=== PATIENT | female | born 1995 | race Caucasian/White ===

== ENCOUNTER 2017-08-05 11:23 | Inpatient (IN) | payer OTHER ==
[~2017-08-05] VITALS: Ht 165.1 cm; Wt 55.3 kg
[2017-08-05] MEDS ORDERED: SODIUM CHLORIDE 0.9% 1000ML 1,000 ML IV STA ×3 (11:52→13:21)
[2017-08-05] MEDS ORDERED: ONDANSETRON INJ 2 MG/ML 2 ML VIAL IV STA ×2 (11:52→14:30)
[2017-08-05] MEDS ORDERED: FAMOTIDINE 20 MG TAB PO ONE (12:30)
[2017-08-05 12:32] LABS: ALBUMIN 3.8 gm/dl (3.4-5.0); BLOOD UREA NITROGEN 6 mg/dl (7-18); CALCIUM 9.1 mg/dl (8.5-10.1); CARBON DIOXIDE 22 mmol/L (21-32); CREATININE 0.56 mg/dl (0.60-1.20); GLUCOSE 94 mg/dl (70-99); POTASSIUM 3.4 mmol/L (3.5-5.1); SODIUM 133 mmol/L (136-145)
[2017-08-05 12:37] LABS: ALKALINE PHOSPHATASE 103 U/L (45-117); ALT/SGPT 99 U/L (12-78); AST/SGOT 208 U/L (15-37); LIPASE 1869 U/L (73-393); TOTAL PROTEIN 7.7 gm/dl (6.4-8.2)
--- NOTE | 2017-08-05 12:49 | DIAGNOSTIC IMAGING REPORT ---
CHEST ONE VIEW PORTABLE CLINICAL HISTORY: CHEST PAIN dyspnea COMPARISON STUDY: No previous studies for comparison. FINDINGS: The bones soft tissues and hemidiaphragms are normal. The cardiomediastinal silhouette is normal. The lungs are clear. The pulmonary vasculature is normal. IMPRESSION: Negative chest. The above report was generated using voice recognition software. It may contain grammatical, syntax or spelling errors. Electronically signed by: Matt Bentley M.D. 08/05/2017 12:48 PM Dictated Date/Time: 08/05/2017 12:48 PM
[2017-08-05 13:02] LABS: HEMATOCRIT 38.4 % (37-47); HEMOGLOBIN 13.3 g/dL (12.0-16.0); MEAN CELL VOLUME 101.1 fL (80-100); MEAN CORPUSCULAR HGB CONC 34.6 g/dl (32-36); RED CELL DISTRIBUTION WIDTH CV 14.3 % (11.5-14.5); RED CELL DISTRIBUTION WIDTH SD 52.4 fL (36.4-46.3); WHITE BLOOD COUNT 5.26 K/uL (4.8-10.8)
[2017-08-05 13:04] LABS: MEAN PLATELET VOLUME 9.7 fL (7.4-10.4); PLATELET COUNT 62 K/uL (130-400)
--- NOTE | 2017-08-05 13:21 | EMERGENCY ROOM VISIT NOTE ---
History Report prepared by Tinibshantal: Jasmine Hoskins Under the Supervision of: Dr. Derrick Aragon M.D. First contact with patient: 11:51 Chief Complaint: CHEST PAIN Stated Complaint: CHEST PAIN, VOMITIG, SHORTNESS OF BREATH, ABDOMINA Nursing Triage Summary: patient c/o "achy pain" midsternal chest /epigastric pain x 3 days. patient states pain worsens when laying flat. patient denies SOB. "its more like shacky feeling." hx anxiety. denies feeling more anxious than normal. patietn smelled of alcohol when getting vitals. RN asked if patient has been drinking. patient states she was drinking last night. "A couple of shots." patient states she thought she was but "I guess I got my period today.." History of Present Illness The patient is a 22 year old female who presents to the Emergency Room with complaints of constant chest aches beginning three days ago. The patient reports her chest pain worsens when she lays flat. She notes drinking a couple alcoholic drinks last night. The patient states "I am relatively healthy besides I drink a little too much, which is my only vice". She reports drinking a couple drinks a day. The patient was a smoker for 10 years but she states she stopped smoking a couple months ago. She notes a cough beginning a week ago and nausea, vomiting and abdominal pain beginning yesterday. The patient denies any family history of early heart attack. She is not on any oral contraceptive. She denies any chance of . The patient is currently on her period. At baseline, she denies pain with her any pain with her menstrual cycles. Source of History: patient Onset: three days ago Position: chest Quality: ache Timing: constant Associated Symptoms: + cough, + chest pain, + nausea, + vomiting, + abdominal pain Review of Systems See HPI for pertinent positives and negatives. A total of ten systems were reviewed and were otherwise negative. Past Medical & Surgical Medical Problems: (1) Alcohol withdrawal (2) No Known Active Medical Problems Family History Patient reports no known family medical history. Social History Smoking Status: Former Smoker Alcohol Use: heavy Housing Status: lives with friends Occupation Status: employed Current/Historical Medications No Active Prescriptions or Reported Meds Allergies Coded Allergies: No Known Allergies (Unverified , 08/05/17) Physical Exam Vital Signs Date Time Temp Pulse Resp B/P (MAP) Pulse Ox O2 Delivery O2 Flow Rate FiO2 08/05/17 14:27 86 16 120/80 08/05/17 13:37 103 16 125/89 98 Room Air 08/05/17 12:34 115 129/84 97 Room Air 08/05/17 12:24 123 08/05/17 11:59 97 Room Air 08/05/17 11:29 36.7 118 18 116/83 97 Room Air Physical Exam GENERAL: Awake, alert, uncomfortable and fatigued-appearing, in no distress HENT: Normocephalic, atraumatic. Oropharynx unremarkable. Dry MM. EYES: Normal conjunctiva. Sclera non-icteric. NECK: Supple. No nuchal rigidity. FROM. No JVD. RESPIRATORY: Clear to auscultation. CARDIAC: Regular rate, normal rhythm. Extremities warm and well perfused. Pulses equal. ABDOMEN: Soft, non-distended. Mild epigastric tenderness with mild generalized abdominal pain. No rebound or guarding. No masses. RECTAL: Deferred. MUSCULOSKELETAL: Chest examination reveals no tenderness. The back is symmetrical on inspection without obvious abnormality. There is no CVA tenderness to palpation. No joint edema. LOWER EXTREMITIES: Calves are equal size bilaterally and non-tender. No edema. No discoloration. NEURO: Normal sensorium. No sensory or motor deficits noted. SKIN: No rash or jaundice noted. Medical Decision & Procedures ER Provider Diagnostic Interpretation: Radiology results as stated below per my review and radiologist interpretation: CHEST ONE VIEW PORTABLE FINDINGS: The bones soft tissues and hemidiaphragms are normal. The cardiomediastinal silhouette is normal. The lungs are clear. The pulmonary vasculature is normal. IMPRESSION: Negative chest. The above report was generated using voice recognition software. It may contain grammatical, syntax or spelling errors. Electronically signed by: Matt Bentley M.D. CT ABD/PELVIS IV CONTRAST ONLY FINDINGS: Lower chest: There is a faint area of groundglass attenuation within the right lower lobe. Given the patient's age this is likely atelectatic. Liver: There is severe hepatic steatosis. No focal masses are visualized. Gallbladder: Unremarkable. Spleen: Normal in size and attenuation. Pancreas: There is no evidence of pancreatic ductal dilatation. There is infiltration of peripancreatic fat and there is peripancreatic fluid. Fluid extends into the right paracolic gutter and paranephric region on the right. There is fluid anterior to the IVC and aorta. The findings are consistent with acute pancreatitis. There are no current findings to indicate pancreatic necrosis. Adrenal glands: Unremarkable. Kidneys: There is symmetric renal cortical enhancement. The kidneys are normal in size without hydronephrosis. Bowel: There are no transition zones to indicate bowel obstruction. There is no acute diverticulitis. There are no findings to indicate acute appendicitis. Peritoneum: There is fluid present related to acute pancreatitis. No free intraperitoneal air is visualized. Vasculature: The abdominal aorta is normal in course and caliber. Adenopathy: None. Pelvic viscera: The bladder, and pelvic viscera are unremarkable. Skeletal structures: No destructive osseous lesions are seen. IMPRESSION: 1. Infiltration of the peripancreatic fat, and peripancreatic fluid which extends into the retroperitoneum and right paracolic gutter. The findings are indicative of acute pancreatitis. There is no ductal dilatation. There is no current evidence of pancreatic necrosis. 2. Severe hepatic steatosis 3. No evidence of bowel obstruction. No evidence of free air Electronically signed by: Jaime Sebastian M.D. Laboratory Results 08/05/17 12:06 Red Blood Count 3.80, Mean Corpuscular Volume 101.1, Mean Corpuscular Hemoglobin 35.0, Mean Corpuscular Hemoglobin Concent 34.6, Mean Platelet Volume 9.7 08/05/17 12:06 Test 08/05/17 11:38 08/05/17 12:06 08/05/17 12:35 08/05/17 12:41 Urine Color ORANGE Urine Appearance CLOUDY (CLEAR) Urine pH 6.0 (4.5-7.5) Urine Specific Mchenry 1.019 (1.000-1.030) Urine Protein TRACE (NEG) Urine Glucose (UA) NEG (NEG) Urine Ketones TRACE (NEG) Urine Occult Blood 3+ (NEG) Urine Nitrite POS (NEG) Urine Bilirubin NEG (NEG) Urine Urobilinogen NEG (NEG) Urine Leukocyte Esterase SMALL (NEG) Urine WBC (Auto) 5-10 /hpf (0-5) Urine RBC (Auto) 5-10 /hpf (0-4) Urine Hyaline Casts (Auto) 1-5 /lpf (0-5) Urine Epithelial Cells (Auto) >30 /lpf (0-5) Urine Bacteria (Auto) 4+ (NEG) Urine Test NEG (NEG) White Blood Count 5.26 K/uL (4.8-10.8) Red Blood Count 3.80 M/uL (4.2-5.4) Hemoglobin 13.3 g/dL (12.0-16.0) Hematocrit 38.4 % (37-47) Mean Corpuscular Volume 101.1 fL (80-100) Mean Corpuscular Hemoglobin 35.0 pg (25-34) Mean Corpuscular Hemoglobin Concent 34.6 g/dl (32-36) Platelet Count 62 K/uL (130-400) Mean Platelet Volume 9.7 fL (7.4-10.4) RDW Standard Deviation 52.4 fL (36.4-46.3) RDW Coefficient of Variation 14.3 % (11.5-14.5) Neutrophils % (Manual) 36.5 % Lymphocytes % (Manual) 26.1 % Variant Lymphocytes % (manual) 20.9 % Monocytes % (Manual) 13.9 % Eosinophils % (Manual) 2.6 % Neutrophils # (Manual) 1.92 K/uL (1.4-6.5) Total Absolute Neutrophils 1.92 K/uL (1.4-6.5) Lymphocytes # (Manual) 1.37 K/uL (1.2-3.4) Absolute Variant Lymphocytes 1.10 K/uL Total Absolute Lymphocytes 2.47 K/uL (1.2-3.4) Monocytes # (Manual) 0.73 K/uL (0.11-0.59) Eosinophils # (Manual) 0.14 K/uL (0-0.5) Macrocytosis PRESENT Prothrombin Time 10.5 SECONDS (9.0-12.0) Prothromb Time International Ratio 1.0 (0.9-1.1) Anion Gap 12.0 mmol/L (3-11) Est Creatinine Clear Calc Drug Dose 117.9 ml/min Estimated GFR () > 150.0 Estimated GFR (Non- 130.5 BUN/Creatinine Ratio 11.2 (10-20) Calcium Level 9.1 mg/dl (8.5-10.1) Magnesium Level 2.1 mg/dl (1.8-2.4) Total Bilirubin 0.7 mg/dl (0.2-1) Direct Bilirubin 0.3 mg/dl (0-0.2) Aspartate Amino Transf (AST/SGOT) 208 U/L (15-37) Alanine Aminotransferase (ALT/SGPT) 99 U/L (12-78) Alkaline Phosphatase 103 U/L (45-117) Troponin I < 0.015 ng/ml (0-0.045) Total Protein 7.7 gm/dl (6.4-8.2) Albumin 3.8 gm/dl (3.4-5.0) Lipase 1869 U/L (73-393) Influenza Type A (RT-PCR) Neg for Influ A (NEG) Influenza Type B (RT-PCR) Neg for Influ B (NEG) Ethyl Alcohol mg/dL 237.8 mg/dl (0-3) Laboratory results reviewed by me Medications Administered Medications (Trade) Dose Ordered Sig/Tabatha Route Start Time Stop Time Status Last Admin Dose Admin Sodium Chloride 1,000 ml @ 999 mls/hr Q1H1M STAT IV 08/05/17 11:52 08/05/17 12:52 DC 08/05/17 12:10 999 MLS/HR Ondansetron HCl (Zofran Inj) 4 mg NOW STAT IV 08/05/17 11:52 08/05/17 11:55 DC 08/05/17 12:10 4 MG Sodium Chloride 1,000 ml @ 999 mls/hr Q1H1M STAT IV 08/05/17 12:22 08/05/17 13:22 DC 08/05/17 12:33 999 MLS/HR Famotidine (Pepcid Tab) 20 mg NOW ONCE PO 08/05/17 12:30 08/05/17 12:31 DC 08/05/17 12:33 20 MG Sodium Chloride 1,000 ml @ 999 mls/hr Q1H1M STAT IV 08/05/17 13:21 08/05/17 14:21 DC 08/05/17 13:35 999 MLS/HR Ceftriaxone Sodium (Rocephin Inj) 1 gm NOW STAT IV 08/05/17 14:30 08/05/17 14:31 DC 08/05/17 14:40 1 GM Ondansetron HCl (Zofran Inj) 4 mg NOW STAT IV 08/05/17 14:30 08/05/17 14:31 DC 08/05/17 14:39 4 MG Fentanyl Citrate (Fentanyl Inj) 50 mcg NOW STAT IV 08/05/17 14:30 08/05/17 14:31 DC 08/05/17 14:40 50 MCG ECG Per My Interpretation Indication: abdominal pain, chest pain Rate (beats per minute): 119 Rhythm: sinus tachycardia Findings: no acute ischemic change, other (normal axis) ED Course 1217: The patient was evaluated in room A11B. A complete history and physical exam was performed. 1428: I discussed the patient with Dr. Suresh Manley - He will evaluate the patient for further treatment. Medical Decision I reviewed the patient's past medical history, medications, and the nursing notes as described above. Differential diagnosis: Etiologies such as appendicitis, diverticulitis, PUD, biliary pathology, UTI, pancreatitis, obstruction, mesenteric ischemia, aortic pathology, infections, inflammatory bowel disease, renal colic, as well as others were entertained. The patient is a 22-year-old woman with a past medical history of alcohol abuse who presents emergency department with chest pain/epigastric pain for the past couple of days with associated nausea and vomiting per hpi. The patient uncomfortable but no acute distress, afebrile stable vital signs. Patient has moderate epigastric tenderness to palpation with otherwise generalized abdominal discomfort. No peritoneal signs. Labs demonstrate pancreatitis with lipase 1800s. Patient's alcohol is also elevated in the 200s despite the patient's initial report that she only had [address] of the abdomen and pelvis ordered given the patient's first episode of pancreatitis and demonstrates acute pancreatitis with no evidence of gallstones. Moreover, the patient's LFTs demonstrate alcoholic pattern with AST >> ALT.of note, I discussed with the patient the findings and recommendation for admission and patient is agreeable. She does report that it has been a very long time since she has gone several days without drinking alcohol and so withdrawal is a possibility. UA is dirty with epithelial cells however given nitrites and bacteria will treat with ceftriaxone for now. Case was discussed with RYAN Ambriz hospitalist, who will evaluate the patient for further management. Medication Reconcilliation Current Medication List: was personally reviewed by me Blood Pressure Screening Patient's blood pressure: Normal blood pressure Consults Time Called: 1423 Consulting Physician: Dr. Suresh Manley Returned Call: 1424 I discussed the patient with Dr. Suresh Billings-[facility] - He will evaluate the patient for further treatment. Impression Primary Impression: Acute pancreatitis Additional Impression: Alcohol abuse Scribe Attestation The scribe's documentation has been prepared under my direction and personally reviewed by me in its entirety. I confirm that the note above accurately reflects all work, treatment, procedures, and medical decision making performed by me. Departure Information Dispostion Being Evaluated By Hospitalist Prescriptions No Active Prescriptions or Reported Meds Referrals No Doctor, Assigned (PCP) Patient Instructions [facility] Problem Qualifiers
[2017-08-05] MEDS ORDERED: GI COCKTAIL PO STA (13:23)
[2017-08-05 13:33] LABS: INFLUENZA A PCR Neg for Influ A (NEG); INFLUENZA B PCR Neg for Influ B (NEG)
[2017-08-05] MEDS ORDERED: OPTIRAY 320 IV PRN (13:45)
--- NOTE | 2017-08-05 14:04 | DIAGNOSTIC IMAGING REPORT ---
CT ABD/PELVIS IV CONTRAST ONLY CLINICAL HISTORY: new onset pancreatitis COMPARISON STUDY: None. TECHNIQUE: Following the IV administration of 92 mL of Optiray-320, CT scan of the abdomen and pelvis was performed from the lung bases to the proximal femurs. Images are reviewed in the axial, sagittal, and coronal planes. IV contrast was administered without complication. A dose lowering technique was utilized adhering to the principles of ALARA. CT DOSE: 264.72 mGy.cm FINDINGS: Lower chest: There is a faint area of groundglass attenuation within the right lower lobe. Given the patient's age this is likely atelectatic. Liver: There is severe hepatic steatosis. No focal masses are visualized. Gallbladder: Unremarkable. Spleen: Normal in size and attenuation. Pancreas: There is no evidence of pancreatic ductal dilatation. There is infiltration of peripancreatic fat and there is peripancreatic fluid. Fluid extends into the right paracolic gutter and paranephric region on the right. There is fluid anterior to the IVC and aorta. The findings are consistent with acute pancreatitis. There are no current findings to indicate pancreatic necrosis. Adrenal glands: Unremarkable. Kidneys: There is symmetric renal cortical enhancement. The kidneys are normal in size without hydronephrosis. Bowel: There are no transition zones to indicate bowel obstruction. There is no acute diverticulitis. There are no findings to indicate acute appendicitis. Peritoneum: There is fluid present related to acute pancreatitis. No free intraperitoneal air is visualized. Vasculature: The abdominal aorta is normal in course and caliber. Adenopathy: None. Pelvic viscera: The bladder, and pelvic viscera are unremarkable. Skeletal structures: No destructive osseous lesions are seen. IMPRESSION: 1. Infiltration of the peripancreatic fat, and peripancreatic fluid which extends into the retroperitoneum and right paracolic gutter. The findings are indicative of acute pancreatitis. There is no ductal dilatation. There is no current evidence of pancreatic necrosis. 2. Severe hepatic steatosis 3. No evidence of bowel obstruction. No evidence of free air Electronically signed by: Jaime Sebastian M.D. 08/05/2017 2:02 PM Dictated Date/Time: 08/05/2017 1:56 PM
[2017-08-05] MEDS ORDERED: FENTANYL CITRATE INJ 50 MCG/1 ML 2 ML VIAL IV STA (14:30)
[2017-08-05] MEDS ORDERED: CEFTRIAXONE SOD INJ 1 GM ADDVIAL IV STA (14:30)
[2017-08-05] MEDS ORDERED: CHLORDIAZEPOXIDE 25 MG CAP PO SCH (15:15)
[2017-08-05] MEDS ORDERED: MAGNESIUM HYDROXIDE SUSP 30 ML UDC PO PRN (15:15)
[2017-08-05] MEDS ORDERED: ACETAMINOPHEN 325 MG TAB PO PRN (15:15)
[2017-08-05] MEDS ORDERED: ALUMINUM/MAGNESIUM/SIMETH (MAALOX MAX) 30 ML UDC PO PRN (15:15)
[2017-08-05] MEDS ORDERED: POLYETHYLENE (MIRALAX) 17 GM PACK PO PRN (15:30)
[2017-08-05] MEDS ORDERED: MULTI-VITAMIN INFUSION INJ 10 ML, THIAMINE HCL INJ 100 MG, FoLIC ACID INJ 1 MG in SODIU... IV ONE (15:45)
--- NOTE | 2017-08-05 15:48 | History and Physical ---
History & Physical Date & Time of Service: Aug 05, 2017 at 15:14 Chief Complaint: Chest Pain, Vomitig, Shortness Of Breath, Abdomina Primary Care Physician: No Doctor, Assigned History of Present Illness Source: patient Ms. Davidson is a 22 y/o female with PMHx of ETOH Abuse and Anemia presents to the ED c/o epigastric abdominal pain/lower chest pain x 3 days. She reports a sudden onset of epigastric pain and chest pain that she describes as aching. She states multiple family members had the stomach flu so she initially didn't think much of it. She reports a cough and intermittent diarrhea with this. However, the pain continued to progress and she presented to the ED. She states pain is worsened by laying flat and is improving with pain medication. She reports associated nausea and emesis this AM but Zofran in the ED is helping. She is also reporting feelings of anxiety and chills but no fever. Per notes, she smelled of alcohol upon arriving to the emergency room. She denies H/O previous pancreatitis. She still has her gallbladder and denies any known issues with this. She reports she has been drinking alcohol a long time and knows she has a drinking problem. She states she previously would drink a handle of ETOH and now is down to a quarter of a 5th. Last drink was this AM. She reports that she has withdrawn from ETOH in the past but denies H/O withdrawal seizures. She is reporting feelings of anxiousness and is tremulous at this time but mentating appropriately. She has a prior use of illegal drugs but does not utilize any illegal substances currently. She is currently on her menses. Past Medical/Surgical History 1. ETOH Abuse 2. Anemia 3. Abortions with D&C x 2 Family History Patient reports no known family medical history. Social History Smoking Status: Former Smoker Alcohol Use: heavy Drug Use: none Occupational Status: employed Allergies Coded Allergies: No Known Allergies (Unverified , 08/05/17) Home Medications No Active Prescriptions or Reported Meds Review of Systems Constitutional: + chills, + fatigue, No fever ENT: No nasal symptoms, No sore throat Respiratory: + cough, + sputum, No shortness of breath, No hemoptysis Cardiovascular: No chest pain, No palpitations Abdomen: + pain (diffuse - mostly of LUQ), + nausea, + vomiting, + diarrhea ( on previous days - resolved currently), No GI bleeding Musculoskeletal: No swelling, No calf pain Genitourinary - Female: No dysuria Psychiatric: + anxiety Hematologic / Lymphatic: No abnormal bleeding/bruising Physical Exam Vital Signs Date Time Temp Pulse Resp B/P (MAP) Pulse Ox O2 Delivery O2 Flow Rate FiO2 08/05/17 14:27 86 16 120/80 08/05/17 13:37 103 16 125/89 98 Room Air 08/05/17 12:34 115 129/84 97 Room Air 08/05/17 12:24 123 08/05/17 11:59 97 Room Air 08/05/17 11:29 36.7 118 18 116/83 97 Room Air General Appearance: WD/WN, no apparent distress, + pertinent finding Head: normocephalic, atraumatic Eyes: sclerae normal ENT: hearing grossly normal, pharynx normal Neck: supple, no JVD, trachea midline Respiratory/Chest: lungs clear, normal breath sounds, no respiratory distress, no accessory muscle use Cardiovascular: no gallop, no murmur, + tachycardia Abdomen/GI: normal bowel sounds, soft, + tenderness (diffusely; no guarding or rigidity) Extremities/Musculoskelatal: no calf tenderness, no pedal edema Neurologic/Psych: alert, oriented x 3 Skin: normal color, warm/dry Diagnostics Laboratory Results Results Past 24 Hours Test 08/05/17 11:38 08/05/17 12:06 08/05/17 12:35 08/05/17 12:41 Range/Units Urine Color ORANGE Urine Appearance CLOUDY CLEAR Urine pH 6.0 4.5-7.5 Urine Specific [place] 1.019 1.000-1.030 Urine Protein TRACE NEG Urine Glucose (UA) NEG NEG Urine Ketones TRACE NEG Urine Occult Blood 3+ NEG Urine Nitrite POS NEG Urine Bilirubin NEG NEG Urine Urobilinogen NEG NEG Urine Leukocyte Esterase SMALL NEG Urine WBC (Auto) 5-10 0-5 /hpf Urine RBC (Auto) 5-10 0-4 /hpf Urine Hyaline Casts (Auto) 1-5 0-5 /lpf Urine Epithelial Cells (Auto) >30 0-5 /lpf Urine Bacteria (Auto) 4+ NEG Urine Test NEG NEG White Blood Count 5.26 4.8-10.8 K/uL Red Blood Count 3.80 4.2-5.4 M/uL Hemoglobin 13.3 12.0-16.0 g/dL Hematocrit 38.4 37-47 % Mean Corpuscular Volume 101.1 80-100 fL Mean Corpuscular Hemoglobin 35.0 25-34 pg Mean Corpuscular Hemoglobin Concent 34.6 32-36 g/dl Platelet Count 62 130-400 K/uL Mean Platelet Volume 9.7 7.4-10.4 fL RDW Standard Deviation 52.4 36.4-46.3 fL RDW Coefficient of Variation 14.3 11.5-14.5 % Neutrophils % (Manual) 36.5 % Lymphocytes % (Manual) 26.1 % Variant Lymphocytes % (manual) 20.9 % Monocytes % (Manual) 13.9 % Eosinophils % (Manual) 2.6 % Neutrophils # (Manual) 1.92 1.4-6.5 K/uL Total Absolute Neutrophils 1.92 1.4-6.5 K/uL Lymphocytes # (Manual) 1.37 1.2-3.4 K/uL Absolute Variant Lymphocytes 1.10 K/uL Total Absolute Lymphocytes 2.47 1.2-3.4 K/uL Monocytes # (Manual) 0.73 0.11-0.59 K/uL Eosinophils # (Manual) 0.14 0-0.5 K/uL Macrocytosis PRESENT Prothrombin Time 10.5 9.0-12.0 SECONDS Prothromb Time International Ratio 1.0 0.9-1.1 Sodium Level 133 136-145 mmol/L Potassium Level 3.4 3.5-5.1 mmol/L Chloride Level 99 98-107 mmol/L Carbon Dioxide Level 22 21-32 mmol/L Anion Gap 12.0 3-11 mmol/L Blood Urea Nitrogen 6 7-18 mg/dl Creatinine 0.56 0.60-1.20 mg/dl Est Creatinine Clear Calc Drug Dose 117.9 ml/min Estimated GFR () > 150.0 Estimated GFR (Non- 130.5 BUN/Creatinine Ratio 11.2 10-20 Random Glucose 94 70-99 mg/dl Calcium Level 9.1 8.5-10.1 mg/dl Magnesium Level 2.1 1.8-2.4 mg/dl Total Bilirubin 0.7 0.2-1 mg/dl Direct Bilirubin 0.3 0-0.2 mg/dl Aspartate Amino Transf (AST/SGOT) 208 15-37 U/L Alanine Aminotransferase (ALT/SGPT) 99 12-78 U/L Alkaline Phosphatase 103 45-117 U/L Troponin I < 0.015 0-0.045 ng/ml Total Protein 7.7 6.4-8.2 gm/dl Albumin 3.8 3.4-5.0 gm/dl Lipase 1869 73-393 U/L Influenza Type A (RT-PCR) Neg for Influ A NEG Influenza Type B (RT-PCR) Neg for Influ B NEG Ethyl Alcohol mg/dL 237.8 0-3 mg/dl Microbiology Results 08/05/17 Urine Culture, Received Pending Diagnostic Radiology CT ABD/PELVIS IV CONTRAST ONLY FINDINGS: Lower chest: There is a faint area of groundglass attenuation within the right lower lobe. Given the patient's age this is likely atelectatic. Liver: There is severe hepatic steatosis. No focal masses are visualized. Gallbladder: Unremarkable. Spleen: Normal in size and attenuation. Pancreas: There is no evidence of pancreatic ductal dilatation. There is infiltration of peripancreatic fat and there is peripancreatic fluid. Fluid extends into the right paracolic gutter and paranephric region on the right. There is fluid anterior to the IVC and aorta. The findings are consistent with acute pancreatitis. There are no current findings to indicate pancreatic necrosis. Adrenal glands: Unremarkable. Kidneys: There is symmetric renal cortical enhancement. The kidneys are normal in size without hydronephrosis. Bowel: There are no transition zones to indicate bowel obstruction. There is no acute diverticulitis. There are no findings to indicate acute appendicitis. Peritoneum: There is fluid present related to acute pancreatitis. No free intraperitoneal air is visualized. Vasculature: The abdominal aorta is normal in course and caliber. Adenopathy: None. Pelvic viscera: The bladder, and pelvic viscera are unremarkable. Skeletal structures: No destructive osseous lesions are seen. IMPRESSION: 1. Infiltration of the peripancreatic fat, and peripancreatic fluid which extends into the retroperitoneum and right paracolic gutter. The findings are indicative of acute pancreatitis. There is no ductal dilatation. There is no current evidence of pancreatic necrosis. 2. Severe hepatic steatosis 3. No evidence of bowel obstruction. No evidence of free air CHEST ONE VIEW PORTABLE FINDINGS: The bones soft tissues and hemidiaphragms are normal. The cardiomediastinal silhouette is normal. The lungs are clear. The pulmonary vasculature is normal. IMPRESSION: Negative chest. EKG Sinus tachycardia Possible Left atrial enlargement Borderline ECG No previous ECGs available Confirmed by JUANITO FERRERA ([id number]) on 08/05/2017 1:27:22 PM Impression Assessment and Plan Ms. Davidson is a 22 y/o female with PMHx of ETOH Abuse and Anemia presents to the ED c/o epigastric abdominal pain/lower chest pain x 3 days. Acute Pancreatitis likely ETOH-Induced: - Place NPO except sips/chips - Aggressive hydration with 3 L in ED and will continue with banana bag and NSS + KCL - Toradol and Morphine PRN - May have an associate gastritis and will cover with Pepcid 20 mg IV BID ETOH Abuse with Withdrawal: AWSS Protocol - Daily banana bag; Librium taper and Ativan PRN - Appears to be actively withdrawing at this time presenting with anxiety and tremors; mentating appropriately at this time Urinary Tract Infection: Asymptomatic - Will cover with Rocephin 1 g IV daily and await cx Hepatic Steatosis and Transaminitis: - Will trend and obtain U/S of liver and GB to further assess this area - did explain finding of CT to patient - Obtain hepatitis panel - likely this is ETOH induced Macrocytic Anemia: - Currently H&H acceptable at this time; will need Folate and B12 on D/C DVT Prophylaxis: SCDs Code Status: FULL RESUSCITATION Disposition: - Had a long conversation about outpatient/inpatient options for ETOH use - patient was receptive to conversation however did not give a direct answer if she would want any resources - should be given regardless - /BF was at bedside who is an alcoholic as well and states they are both trying to get sober and he is familiar with resources - he plans to remain at bedside with patient however patient is very open with her problem I personally interviewed and examined the patient. I agree with history of present illness and physical exam mentioned above, I also performed my own history taking and examination. Past medical history and review of system has been obtained by myself I reviewed all pertinent labs and studies Reviewed current medications I discussed and formulated of the assessment and plan mentioned above. Please refer to the Summary mentioned below. 22-year-old female with history of heavy drinking/alcohol abuse presented to the ED with severe abdominal pain, CAT scan was indicative of acute pancreatitis Consulted patient regarding alcohol addiction and concomitant diseases. Appears to have severe steatosis, alcoholic hepatitis plus the pancreatitis Yet we will rule out other causes of pancreatitis, ordered lipid spaniel to rule out hypertriglyceridemia, gallbladder was reviewed and a CAT scan does appear normal, severe hepatic steatosis is overt on her CAT scan results. Indicative of alcoholic hepatitis. Also ordered hemoglobin A1c rule out concomitant or early diabetes secondary to pancreatitis. We will order will follow we will follow up liver function test in a.m. including calcium level and CBC to monitor the severity of her pancreatitis. Patient does have also abnormal UA, will be empirically treated with ceftriaxone until culture results come back General Appearance: not in acute distress Eyes: normal Sclerae, extraocular muscle intact ENT: hearing grossly normal Neck: supple Respiratory/Chest: normal air entry bilateral ,no respiratory distress, no accessory muscle use Cardiovascular: regular rate, rhythm, no murmur Abdomen: Tenderness mainly in the epigastric area, otherwise soft no guarding or rebound Extremities: no edema Neurologic/Psychiatric: Awake alert oriented times place and person moves all extremities sensation intact cranial nerves II-12 appear to be intact Skin: normal color, warm/dry, no rash Marcio Billings MD, [facility] Resuscitation Status VTE Prophylaxis Will order VTE Prophylaxis: Yes
[2017-08-05] MEDS: ONDANSETRON INJ 2 MG/ML 2 ML VIAL IV PRN (15:53)
[2017-08-05 16:41] VITALS: BP 114/80; PULSE 92; TEMP 37.1; O2SAT 98; Ht 165.1 cm; Wt 55.3 kg
[2017-08-05] MEDS: MoRPHine SULFATE 4 MG/ML 1 ML CARP\\VIAL IV PRN (17:07)
[2017-08-05] MEDS: CHLORDIAZEPOXIDE 25MG 1ST DOSE PO SCH (18:11)
[2017-08-05] MEDS ORDERED: PROMETHAZINE HCL INJ 12.5 MG in SODIUM CHLORIDE 0.9% 50ML 50 ML IV PRN (18:30)
[2017-08-05] MEDS: KETOROLAC TROMETHAMINE 15 MG/ML VIAL IV. PRN (19:02)
[2017-08-05 19:19] VITALS: BP 134/88; PULSE 77; TEMP 36.8; O2SAT 97
[2017-08-05] MEDS ORDERED: FAMOTIDINE IV INJ 20 MG in DEXTROSE 5% 100ML 100 ML IV SCH (21:00)
[2017-08-05] MEDS: FAMOTIDINE IV INJ 20 MG in SYRINGE 3 ML IV SCH (21:09)
[2017-08-05] MEDS: LORAZEPAM 2 MG/ML 1 ML VIAL IV PRN (21:09)
--- NOTE | 2017-08-05 21:37 | DIAGNOSTIC IMAGING REPORT ---
(LIVER) ABDOMEN LIMITED CLINICAL HISTORY: 22 years-old Female presenting with Hepatic steatosis/GB evaluation. TECHNIQUE: Real-time grayscale and limited color Doppler ultrasound imaging of the abdomen limited to the right upper quadrant was performed. COMPARISON: CT from earlier the same day. FINDINGS: Pancreas: Visualized portions of the pancreatic head are hypoechogenic. Liver: Moderately hyperechogenic parenchyma with partial obscuration of the right hemidiaphragm, likely indicating moderate steatosis. The liver measures 15.1 cm in maximal sagittal dimension. No sonographic evidence of hepatic mass. Main portal vein patent with normal directional flow. Biliary: No intrahepatic biliary ductal dilatation. Common bile duct measures up to 5 mm in diameter. Gallbladder: No evidence of gallstones, gallbladder wall thickening, gallbladder distention, or pericholecystic fluid or inflammatory change. Right kidney: Normal in appearance. No hydronephrosis. No renal calculi visible on most recent CT. The prominent hyperechogenic foci marked on the images likely represent prominent fat. Ascites: Trace free fluid in Morison's pouch. Other: None. IMPRESSION: 1. Hepatic steatosis. Correlate with liver function tests to exclude steatohepatitis as a cause for abdominal pain. 2. No cholelithiasis or biliary ductal dilatation. 3. Hypoechogenic pancreatic parenchyma could be compatible with known pancreatitis. Electronically signed by: Oli Benjamin M.D. 08/05/2017 9:36 PM Dictated Date/Time: 08/05/2017 9:32 PM
[2017-08-05] MEDS: MoRPHine SULFATE 2 MG/ML CARP IV PRN (22:20)
[2017-08-06] VITALS (8 sets, daily range): BP systolic 114–128; BP diastolic 75–90; PULSE 87–98; TEMP 36.7–37.1; O2SAT 96–99
[2017-08-06] MEDS: CHLORDIAZEPOXIDE 25MG 1ST DOSE PO SCH ×3 (00:04→11:59)
[2017-08-06] MEDS: POTASSIUM CHLORIDE INJ 20 MEQ in SODIUM CHLORIDE 0.9% 1000ML 1,000 ML IV SCH ×2 (00:05→00:55)
[2017-08-06] MEDS: LORAZEPAM 2 MG/ML 1 ML VIAL IV PRN ×4 (00:05→21:29)
[2017-08-06] MEDS: KETOROLAC TROMETHAMINE 15 MG/ML VIAL IV. PRN ×2 (01:39→10:25)
[2017-08-06] MEDS: MoRPHine SULFATE 4 MG/ML 1 ML CARP\\VIAL IV PRN ×2 (04:15→22:50)
[2017-08-06 06:05] LABS: HEMATOCRIT 32.9 % (37-47); HEMOGLOBIN 11.1 g/dL (12.0-16.0); MEAN CELL VOLUME 103.5 fL (80-100); MEAN CORPUSCULAR HEMOGLOBIN 34.9 pg (25-34); MEAN CORPUSCULAR HGB CONC 33.7 g/dl (32-36); RED CELL DISTRIBUTION WIDTH CV 14.2 % (11.5-14.5); RED CELL DISTRIBUTION WIDTH SD 53.4 fL (36.4-46.3); WHITE BLOOD COUNT 3.55 K/uL (4.8-10.8)
[2017-08-06 06:14] LABS: BASO % 0.8 %; BASO ABS # 0.03 K/uL (0-0.2); EOS % 1.7 %; EOS ABS # 0.06 K/uL (0-0.5); IG# 0.01 K/uL (0.00-0.02); LYMPH % 28.5 %; LYMPH ABS # 1.01 K/uL (1.2-3.4); MEAN PLATELET VOLUME 10.8 fL (7.4-10.4); MONO % 20.6 %; MONO ABS # 0.73 K/uL (0.11-0.59); NEUT % 48.1 %; NEUT ABS # 1.71 K/uL (1.4-6.5); PLATELET COUNT 45 K/uL (130-400)
[2017-08-06 06:42] LABS: ALBUMIN 3.3 gm/dl (3.4-5.0); ALT/SGPT 67 U/L (12-78); AST/SGOT 105 U/L (15-37); BLOOD UREA NITROGEN 3 mg/dl (7-18); CALCIUM 8.4 mg/dl (8.5-10.1); CARBON DIOXIDE 22 mmol/L (21-32); CREATININE 0.45 mg/dl (0.60-1.20); GLUCOSE 77 mg/dl (70-99); LIPASE 1132 U/L (73-393); POTASSIUM 3.6 mmol/L (3.5-5.1); SODIUM 138 mmol/L (136-145)
[2017-08-06 06:54] LABS: ALKALINE PHOSPHATASE 86 U/L (45-117); TOTAL PROTEIN 6.4 gm/dl (6.4-8.2)
[2017-08-06 07:25] LABS: HEMOGLOBIN A1C 4.9 % (4.5-5.6)
[2017-08-06] MEDS ORDERED: MULTI-VITAMIN INFUSION INJ 10 ML, THIAMINE HCL INJ 100 MG, FoLIC ACID INJ 1 MG in SODIU... IV SCH (09:00)
[2017-08-06 09:05] LABS: HEP C IGG 13 YRS+OLDER_RFLX NEG (NEG)
[2017-08-06] MEDS: FAMOTIDINE IV INJ 20 MG in SYRINGE 3 ML IV SCH ×2 (10:25→21:29)
[2017-08-06] MEDS: MAGNESIUM SULFATE 1GM / D5W 1 GM in PREMIXED IN D5W 100 ML IV SCH ×2 (10:26→11:54)
[2017-08-06] MEDS: D5W AND LACTATED RINGERS 1,000 ML IV SCH ×3 (10:54→23:57)
[2017-08-06] MEDS ORDERED: FoLIC ACID INJ 1 MG in SYRINGE 9.8 ML IV ONE (11:57)
[2017-08-06] MEDS ORDERED: CEFTRIAXONE SOD INJ 1 GM in DEXTROSE 5% ADD-VANTAGE 50ML 50 ML IV SCH (12:00)
[2017-08-06] MEDS: CHLORDIAZEPOXIDE 25MG Q8H DOSE PO SCH (19:47)
[2017-08-06] MEDS: MoRPHine SULFATE 2 MG/ML CARP IV PRN (19:49)
--- NOTE | 2017-08-06 21:17 | Progress Note ---
Subjective Date of Service: Aug 06, 2017. Subjective Pt evaluation today including: conversation w/ patient, conversation w/ family (boyfriend at bedside), physical exam, chart review, lab review, review of studies (CT abd, RUQ u/s), review of inpatient medication list Pain: multiple areas of abdomen PO Intake: npo Voiding: no voiding problems patient feels a little better today but still w/ pain no further nausea or emesis tolerating ice chips +flatus tele stable overnight periods of tachycardia w/ ambulation has some shakes/tremors wants to quit etoh Problem List Medical Problems: (1) Acute pancreatitis Status: Acute (2) Alcohol abuse Status: Acute Review of Systems Constitutional: No fever Respiratory: No shortness of breath, No dyspnea on exertion Cardiac: No chest pain, No edema Abdomen: + pain, No nausea, No vomiting Objective Vital Signs Date Time Temp Pulse Resp B/P (MAP) Pulse Ox O2 Delivery O2 Flow Rate FiO2 08/06/17 20:01 Room Air 08/06/17 19:38 37.1 97 19 126/90 (102) 99 Room Air 08/06/17 16:00 Room Air 08/06/17 15:19 36.9 87 17 128/87 (101) 99 Room Air 08/06/17 12:00 Room Air 08/06/17 10:30 36.7 94 20 124/89 (101) Room Air 08/06/17 08:00 96 Room Air 08/06/17 07:50 36.7 95 18 121/84 (96) 96 Room Air 08/06/17 04:30 36.8 94 18 114/75 (88) 98 Room Air 08/06/17 04:02 Room Air 08/06/17 00:34 36.9 89 18 122/87 (99) 99 Room Air 08/06/17 00:00 Room Air Physical Exam General Appearance: no apparent distress ENT: pharynx normal Neck: no JVD Respiratory/Chest: lungs clear, no respiratory distress, no accessory muscle use Cardiovascular: regular rate, rhythm, no gallop, no murmur Abdomen: normal bowel sounds, soft, + tenderness (RUQ, epigastric area), + hepatomegaly Extremities: no pedal edema Neurologic/Psychiatric: alert, oriented x 3, + pertinent finding (mild tremors) Skin: normal color, no rash, + pertinent finding (multiple tattoos ) Laboratory Results Last 24 Hours Test 08/06/17 05:34 White Blood Count 3.55 K/uL Red Blood Count 3.18 M/uL Hemoglobin 11.1 g/dL Hematocrit 32.9 % Mean Corpuscular Volume 103.5 fL Mean Corpuscular Hemoglobin 34.9 pg Mean Corpuscular Hemoglobin Concent 33.7 g/dl Platelet Count 45 K/uL Mean Platelet Volume 10.8 fL Neutrophils (%) (Auto) 48.1 % Lymphocytes (%) (Auto) 28.5 % Monocytes (%) (Auto) 20.6 % Eosinophils (%) (Auto) 1.7 % Basophils (%) (Auto) 0.8 % Neutrophils # (Auto) 1.71 K/uL Lymphocytes # (Auto) 1.01 K/uL Monocytes # (Auto) 0.73 K/uL Eosinophils # (Auto) 0.06 K/uL Basophils # (Auto) 0.03 K/uL RDW Standard Deviation 53.4 fL RDW Coefficient of Variation 14.2 % Immature Granulocyte % (Auto) 0.3 % Immature Granulocyte # (Auto) 0.01 K/uL Sodium Level 138 mmol/L Potassium Level 3.6 mmol/L Chloride Level 106 mmol/L Carbon Dioxide Level 22 mmol/L Anion Gap 10.0 mmol/L Blood Urea Nitrogen 3 mg/dl Creatinine 0.45 mg/dl Est Creatinine Clear Calc Drug Dose 173.5 ml/min Estimated GFR () > 150.0 Estimated GFR (Non- 140.2 BUN/Creatinine Ratio 6.7 Random Glucose 77 mg/dl Estimated Average Glucose 94 mg/dl Hemoglobin A1c 4.9 % Calcium Level 8.4 mg/dl Magnesium Level 1.7 mg/dl Total Bilirubin 1.0 mg/dl Direct Bilirubin 0.4 mg/dl Aspartate Amino Transf (AST/SGOT) 105 U/L Alanine Aminotransferase (ALT/SGPT) 67 U/L Alkaline Phosphatase 86 U/L Total Protein 6.4 gm/dl Albumin 3.3 gm/dl Globulin 3.1 gm/dl Albumin/Globulin Ratio 1.1 Lipase 1132 U/L Hepatitis B Surface Antigen NEG Hepatitis C Antibody NEG Assessment and Plan 22yo female - 1. acute pancreatitis 2nd to alcohol abuse - continue NPO status (still w/ abdominal pain and frequent use of pain medication). Change fluids to LR and run at 150cc/hr. Lipase in am. Etoh abstinence discussed today. Pain control. 2. RUQ pain - likely due to alcoholic hepatitis. Should improve w/ time. LFTs am. 3. epigastric pain - likely alcoholic gastritis. Cont IV H2 mayito. Stop toradol. NPO. 4. alcohol abuse - counseled to quit. Thiamine 200mg BID, folic acid, MVI. Cont etoh withdrawal protocol. Cont librium and ativan prn. Leave on telemetry. 5. UTI - cont rocephin, follow cx. 6. mod-severe thrombocytopenia - likely due to direct toxic effects from etoh. Check b12/folate in AM to be complete. CBC in am. 7. hypomagnesemia - replace, repeat level AM. 8. macrocytic anemia - likely due to etoh abuse; CBC in am. Check b12/folate to be complete. 9. hypokalemia - 2nd to etoh abuse - improved. 10. hyponatremia - 2nd to dehydration & etoh abuse - improved with fluids. BMP am. fortunately no signs of DTs at this time but at high risk of such Continued [facility] stay due to: inadequate po fluid intake, inadequate oral pain control, multiple IV medications needed Discharge planning: home
[2017-08-06] MEDS: THIAMINE HCL INJ 200 MG in SODIUM CHLORIDE 0.9% 50ML 50 ML IV SCH (21:26)
[2017-08-07 03:45] VITALS: BP 107/69; PULSE 78; TEMP 37.2; O2SAT 99
[2017-08-07] MEDS: CHLORDIAZEPOXIDE 25MG Q8H DOSE PO SCH ×2 (06:11→14:32)
[2017-08-07] MEDS: D5W AND LACTATED RINGERS 1,000 ML IV SCH (06:12)
[2017-08-07 07:00] LABS: ALBUMIN 2.9 gm/dl (3.4-5.0); ALT/SGPT 48 U/L (12-78); AST/SGOT 55 U/L (15-37); BLOOD UREA NITROGEN 1 mg/dl (7-18); CALCIUM 8.8 mg/dl (8.5-10.1); CARBON DIOXIDE 26 mmol/L (21-32); CREATININE 0.49 mg/dl (0.60-1.20); GLUCOSE 108 mg/dl (70-99); LIPASE 478 U/L (73-393); POTASSIUM 3.1 mmol/L (3.5-5.1); SODIUM 139 mmol/L (136-145)
[2017-08-07 07:03] LABS: ALKALINE PHOSPHATASE 81 U/L (45-117); TOTAL PROTEIN 6.2 gm/dl (6.4-8.2)
[2017-08-07 07:12] VITALS: BP 119/78; PULSE 99; TEMP 36.7; O2SAT 99
[2017-08-07 08:07] LABS: HEMATOCRIT 31.6 % (37-47); HEMOGLOBIN 10.8 g/dL (12.0-16.0); MEAN CELL VOLUME 102.3 fL (80-100); MEAN CORPUSCULAR HGB CONC 34.2 g/dl (32-36); RED CELL DISTRIBUTION WIDTH CV 13.8 % (11.5-14.5); RED CELL DISTRIBUTION WIDTH SD 51.3 fL (36.4-46.3)
[2017-08-07 08:08] LABS: MEAN PLATELET VOLUME 10.7 fL (7.4-10.4); PLATELET COUNT 44 K/uL (130-400)
[2017-08-07] MEDS: CEROVITE ADV FORMULA TAB PO SCH (08:12)
[2017-08-07] MEDS: FoLIC ACID INJ 1 MG in SYRINGE 9.8 ML IV SCH (08:12)
[2017-08-07] MEDS: POTASSIUM CHLORIDE INJ 20 MEQ in D5W AND LACTATED RINGERS 1,000 ML IV SCH ×3 (08:13→20:00)
[2017-08-07] MEDS: POTASSIUM CHLORIDE 20 MEQ TABCR PO SCH ×3 (08:14→19:59)
[2017-08-07] MEDS: FAMOTIDINE IV INJ 20 MG in SYRINGE 3 ML IV SCH ×2 (08:15→20:00)
[2017-08-07] MEDS: THIAMINE HCL INJ 200 MG in SODIUM CHLORIDE 0.9% 50ML 50 ML IV SCH ×2 (08:15→20:00)
[2017-08-07] MEDS: ONDANSETRON INJ 2 MG/ML 2 ML VIAL IV PRN (09:59)
[2017-08-07] MEDS: MoRPHine SULFATE 2 MG/ML CARP IV PRN (10:02)
[2017-08-07 11:14] VITALS: BP 112/75; PULSE 84; TEMP 36.5; O2SAT 96
[2017-08-07] MEDS: SUCRALFATE 1 GM/10 ML UDC PO SCH ×3 (11:47→19:59)
[2017-08-07] MEDS: AMOXICILLIN 500 MG CAP PO SCH ×2 (14:32→19:59)
[2017-08-07 15:24] VITALS: BP 113/77; PULSE 86; TEMP 37; O2SAT 99
[2017-08-07 15:41] LABS: HEPATITIS A IGM TC 51813E NON-REACTIVE (NON-REACTIVE); HEPATITIS B CORE IGM TC51854R NON-REACTIVE (NON-REACTIVE)
--- NOTE | 2017-08-07 16:09 | Progress Note ---
Subjective Date of Service: Aug 07, 2017. Subjective Pt evaluation today including: conversation w/ patient, physical exam, chart review, lab review, review of inpatient medication list Pain: improved abd pain but still present & still needing IV pain meds PO Intake: npo; tolerating ice chips & occasional sip Voiding: no voiding problems tele - occasional run of sinus tach o/w wnl no vomiting some nausea definitely feels better but still with abd pain +burping, belching still with shakes Problem List Medical Problems: (1) Acute pancreatitis Status: Acute (2) Alcohol abuse Status: Acute Review of Systems Constitutional: No fever, No chills Respiratory: No shortness of breath Cardiac: No chest pain Abdomen: + pain, + nausea, No diarrhea, No constipation Objective Vital Signs Date Time Temp Pulse Resp B/P (MAP) Pulse Ox O2 Delivery O2 Flow Rate FiO2 08/07/17 15:24 37.0 86 18 113/77 (89) 99 Room Air 08/07/17 12:00 Room Air 08/07/17 11:14 36.5 84 16 112/75 (87) 96 Room Air 08/07/17 08:00 Room Air 08/07/17 07:12 36.7 99 16 119/78 (92) 99 Room Air 08/07/17 04:02 Room Air 08/07/17 03:45 37.2 78 18 107/69 (82) 99 Room Air 08/07/17 00:04 Room Air 08/06/17 23:39 36.7 98 18 115/77 (90) 97 Room Air 08/06/17 20:01 Room Air 08/06/17 19:38 37.1 97 19 126/90 (102) 99 Room Air Physical Exam General Appearance: no apparent distress, + pertinent finding (looks better today) ENT: pharynx normal Neck: no JVD Respiratory/Chest: lungs clear, no respiratory distress, no accessory muscle use, + decreased breath sounds (bases) Cardiovascular: no gallop, no murmur, + tachycardia Abdomen: soft, + tenderness (still in epigastric region), + hepatomegaly Extremities: no pedal edema Neurologic/Psychiatric: alert, oriented x 3, + pertinent finding (mild tremors) Laboratory Results Last 24 Hours Test 08/07/17 05:52 08/07/17 07:58 Sodium Level 139 mmol/L Potassium Level 3.1 mmol/L Chloride Level 105 mmol/L Carbon Dioxide Level 26 mmol/L Anion Gap 8.0 mmol/L Blood Urea Nitrogen 1 mg/dl Creatinine 0.49 mg/dl Est Creatinine Clear Calc Drug Dose 159.3 ml/min Estimated GFR () > 150.0 Estimated GFR (Non- 136.4 BUN/Creatinine Ratio 2.4 Random Glucose 108 mg/dl Calcium Level 8.8 mg/dl Magnesium Level 2.1 mg/dl Total Bilirubin 0.8 mg/dl Direct Bilirubin 0.3 mg/dl Aspartate Amino Transf (AST/SGOT) 55 U/L Alanine Aminotransferase (ALT/SGPT) 48 U/L Alkaline Phosphatase 81 U/L Total Protein 6.2 gm/dl Albumin 2.9 gm/dl Globulin 3.3 gm/dl Albumin/Globulin Ratio 0.9 Lipase 478 U/L Vitamin B12 Level 426 pg/mL Folate 10.87 ng/mL White Blood Count 2.70 K/uL Red Blood Count 3.09 M/uL Hemoglobin 10.8 g/dL Hematocrit 31.6 % Mean Corpuscular Volume 102.3 fL Mean Corpuscular Hemoglobin 35.0 pg Mean Corpuscular Hemoglobin Concent 34.2 g/dl RDW Standard Deviation 51.3 fL RDW Coefficient of Variation 13.8 % Platelet Count 44 K/uL Mean Platelet Volume 10.7 fL Assessment and Plan 22yo female - 1. acute pancreatitis 2nd to alcohol abuse - continue NPO status (still w/ abdominal pain/nausea) but consider clears later tonight if the day brings improvement. Cont LR at 150cc/hr. Lipase improved today. Etoh abstinence discussed previously. Pain control. 2. RUQ pain - likely due to alcoholic hepatitis. Improved. LFTs improving as well. 3. epigastric pain - likely alcoholic gastritis. Cont IV H2 mayito. Add carafate ac/hs. 4. alcohol abuse - counseled to quit. Thiamine 200mg BID, folic acid, MVI. Cont etoh withdrawal protocol. Cont librium and ativan prn. Leave on telemetry. 5. UTI - 2nd to pansensitive e. coli; d/c rocephin, change to amox 500 TID. 6. mod-severe thrombocytopenia - likely due to direct toxic effects from etoh. B12/folate wnl. Platelets low but no worse today; should improve with bone marrow recovery. 7. hypomagnesemia - resolved. 8. macrocytic anemia - likely due to etoh abuse; b12/folate wnl. H/H stable. Check TSH in am to be complete. Liver disease could also be contributing. 9. hypokalemia - 2nd to etoh abuse - ongoing; cont replacement IV & PO. 10. hyponatremia - 2nd to dehydration & etoh abuse - resolved. 11. DVT proph - chemical means contraindicated due to low platelets; SCDs for now. fortunately still with no DTs progressing Continued [facility] stay due to: inadequate po fluid intake, inadequate oral pain control, multiple IV medications needed Discharge planning: home
[2017-08-07 18:39] VITALS: BP 119/80; PULSE 102; TEMP 36.9; O2SAT 100
[2017-08-07] MEDS: MoRPHine SULFATE 4 MG/ML 1 ML CARP\\VIAL IV PRN (20:03)
[2017-08-07] MEDS: CHLORDIAZEPOXIDE 10MG Q8H DOSE PO SCH (21:23)
[2017-08-07] MEDS: LORAZEPAM 2 MG/ML 1 ML VIAL IV PRN (22:57)
[2017-08-07 23:56] VITALS: BP 112/77; PULSE 82; TEMP 37; O2SAT 97
[2017-08-08 03:47] VITALS: BP 106/72; PULSE 77; TEMP 37; O2SAT 99
[2017-08-08] MEDS: POTASSIUM CHLORIDE INJ 20 MEQ in D5W AND LACTATED RINGERS 1,000 ML IV SCH ×3 (03:59→19:06)
[2017-08-08] MEDS: MoRPHine SULFATE 2 MG/ML CARP IV PRN ×3 (06:01→19:05)
[2017-08-08] MEDS: CHLORDIAZEPOXIDE 10MG Q8H DOSE PO SCH ×2 (06:01→13:22)
[2017-08-08] MEDS: SUCRALFATE 1 GM/10 ML UDC PO SCH ×4 (06:02→21:13)
[2017-08-08 06:10] LABS: HEMATOCRIT 34.5 % (37-47); HEMOGLOBIN 11.4 g/dL (12.0-16.0); MEAN CELL VOLUME 104.2 fL (80-100); MEAN CORPUSCULAR HEMOGLOBIN 34.4 pg (25-34); RED CELL DISTRIBUTION WIDTH CV 13.6 % (11.5-14.5); WHITE BLOOD COUNT 2.96 K/uL (4.8-10.8)
[2017-08-08 06:20] LABS: MEAN PLATELET VOLUME 10.1 fL (7.4-10.4); PLATELET COUNT 52 K/uL (130-400)
[2017-08-08 06:44] LABS: BLOOD UREA NITROGEN < 1 mg/dl (7-18); CALCIUM 9.3 mg/dl (8.5-10.1); CARBON DIOXIDE 25 mmol/L (21-32); CREATININE 0.53 mg/dl (0.60-1.20); GLUCOSE 79 mg/dl (70-99); SODIUM 137 mmol/L (136-145)
[2017-08-08 07:40] VITALS: BP 109/76; PULSE 81; TEMP 36.6; O2SAT 100
[2017-08-08] MEDS: FAMOTIDINE IV INJ 20 MG in SYRINGE 3 ML IV SCH (09:33)
[2017-08-08] MEDS: FoLIC ACID INJ 1 MG in SYRINGE 9.8 ML IV SCH (09:33)
[2017-08-08] MEDS: POTASSIUM CHLORIDE 20 MEQ TABCR PO SCH ×3 (09:34→21:13)
[2017-08-08] MEDS: AMOXICILLIN 500 MG CAP PO SCH ×3 (09:34→21:13)
[2017-08-08] MEDS: THIAMINE HCL INJ 200 MG in SODIUM CHLORIDE 0.9% 50ML 50 ML IV SCH (09:34)
[2017-08-08] MEDS: CEROVITE ADV FORMULA TAB PO SCH (09:34)
[2017-08-08 11:31] VITALS: BP 98/54; PULSE 83; TEMP 36.8; O2SAT 99
[2017-08-08 14:46] VITALS: BP 129/81; PULSE 78; TEMP 36.9; O2SAT 99
[2017-08-08 19:12] VITALS: BP 116/77; PULSE 74; TEMP 36.8; O2SAT 98
[2017-08-08] MEDS: LORAZEPAM 2 MG/ML 1 ML VIAL IV PRN (21:12)
[2017-08-08] MEDS: FAMOTIDINE 20 MG TAB PO SCH (21:13)
[2017-08-08] MEDS: THIAMINE HCL 100 MG TAB PO SCH (21:13)
[2017-08-08] MEDS: CHLORDIAZEPOXIDE 5MG Q12H DOSE PO SCH (23:39)
[2017-08-09 00:14] VITALS: BP 116/83; PULSE 76; TEMP 36.6; O2SAT 99
[2017-08-09 04:00] VITALS: BP 116/76; PULSE 69; TEMP 36.7; O2SAT 100
--- NOTE | 2017-08-09 05:39 | Progress Note ---
Subjective Date of Service: late entry for visit Aug 08, 2017. Subjective Pt evaluation today including: conversation w/ patient, physical exam, chart review, lab review Pain: abd pain MUCH improved; minimal this am PO Intake: tolerating clears w/o any GI symptoms Voiding: no voiding problems overall feels much better shakes are better burping/belching improved positive flatus - no BM yet declines any help in remaining abstinent from etoh Problem List Medical Problems: (1) Acute pancreatitis Status: Acute (2) Alcohol abuse Status: Acute Review of Systems Constitutional: No fever Respiratory: No shortness of breath Cardiac: No chest pain Abdomen: + pain, No nausea, No vomiting, No diarrhea, No constipation, No GI bleeding Female : No dysuria Objective Vital Signs Date Time Temp Pulse Resp B/P (MAP) Pulse Ox O2 Delivery O2 Flow Rate FiO2 08/09/17 04:00 36.7 69 16 116/76 (89) 100 Room Air 08/09/17 00:14 36.6 76 16 116/83 (94) 99 Room Air 08/09/17 00:00 Room Air 08/08/17 20:00 Room Air 08/08/17 19:12 36.8 74 18 116/77 (90) 98 Room Air 08/08/17 16:00 Room Air 08/08/17 14:46 36.9 78 16 129/81 (97) 99 Room Air 08/08/17 12:00 Room Air 08/08/17 11:31 36.8 83 16 98/54 (69) 99 Room Air 08/08/17 10:12 Room Air 08/08/17 08:00 Room Air 08/08/17 07:40 36.6 81 16 109/76 (87) 100 Room Air Physical Exam General Appearance: no apparent distress ENT: pharynx normal Neck: no JVD Respiratory/Chest: lungs clear, no respiratory distress, no accessory muscle use Cardiovascular: regular rate, rhythm, no gallop, no murmur Abdomen: normal bowel sounds, non tender, soft, no organomegaly Extremities: no pedal edema Neurologic/Psychiatric: alert, oriented x 3, + pertinent finding (minimal tremors of hands) Laboratory Results Last 24 Hours Test 08/09/17 05:29 Assessment and Plan 22yo female - 1. acute pancreatitis 2nd to alcohol abuse - much improved. Advance diet to full liquids. Cut fluid rate to 75cc/hr. Can likely go to low fat diet tomorrow. 2. RUQ pain - likely due to alcoholic hepatitis. Improved/resolved. LFTs improving as well. 3. epigastric pain - likely alcoholic gastritis. Cont H2 mayito and carafate ac/hs. Improved. 4. alcohol abuse - counseled to quit. Thiamine 200mg BID, folic acid, MVI. Cont etoh withdrawal protocol. Cont librium and ativan prn. Leave on telemetry. Declining help/outside resources to remain abstinent. 5. UTI - 2nd to pansensitive e. coli; continue amox 500 TID. Day #4 of Rx. 6. mod-severe thrombocytopenia - likely due to direct toxic effects from etoh. B12/folate wnl. Platelets starting to recover. CBC in am. 7. hypomagnesemia - resolved. 8. macrocytic anemia with pancytopenia - likely due to etoh abuse; b12/folate wnl. H/H stable. TSH wnl. Check TSH at some point. Liver disease could also be contributing. 9. hypokalemia - 2nd to etoh abuse - resolved. 10. hyponatremia - 2nd to dehydration & etoh abuse - resolved. 11. DVT proph - chemical means contraindicated due to low platelets; SCDs for now. suspect d/c tomorrow if doing well Continued [facility] stay due to: inadequate po fluid intake, inadequate oral pain control, multiple IV medications needed Discharge planning: home
[2017-08-09 06:07] LABS: HEMATOCRIT 36.4 % (37-47); HEMOGLOBIN 12.5 g/dL (12.0-16.0); MEAN CORPUSCULAR HEMOGLOBIN 35.7 pg (25-34); MEAN CORPUSCULAR HGB CONC 34.3 g/dl (32-36); RED CELL DISTRIBUTION WIDTH CV 13.8 % (11.5-14.5); RED CELL DISTRIBUTION WIDTH SD 51.1 fL (36.4-46.3); WHITE BLOOD COUNT 3.24 K/uL (4.8-10.8)
[2017-08-09 06:11] LABS: MEAN PLATELET VOLUME 10.1 fL (7.4-10.4); PLATELET COUNT 72 K/uL (130-400)
[2017-08-09 06:50] LABS: ALBUMIN 3.5 gm/dl (3.4-5.0); ALT/SGPT 50 U/L (12-78); AST/SGOT 65 U/L (15-37); BLOOD UREA NITROGEN < 1 mg/dl (7-18); CALCIUM 9.8 mg/dl (8.5-10.1); CARBON DIOXIDE 25 mmol/L (21-32); CREATININE 0.58 mg/dl (0.60-1.20); GLUCOSE 87 mg/dl (70-99); LIPASE 271 U/L (73-393); POTASSIUM 4.2 mmol/L (3.5-5.1); SODIUM 137 mmol/L (136-145)
[2017-08-09 06:52] LABS: ALKALINE PHOSPHATASE 89 U/L (45-117); TOTAL PROTEIN 7.3 gm/dl (6.4-8.2)
[2017-08-09 07:51] VITALS: BP 123/90; PULSE 98; TEMP 36.7; O2SAT 97
[2017-08-09] MEDS ORDERED: HYDROCODONE/ACETAMIN 5/325MG TAB PO PRN (08:00)
[2017-08-09] MEDS: SUCRALFATE 1 GM/10 ML UDC PO SCH ×3 (08:03→16:52)
[2017-08-09] MEDS: FAMOTIDINE 20 MG TAB PO SCH (08:03)
[2017-08-09] MEDS: THIAMINE HCL 100 MG TAB PO SCH (08:03)
[2017-08-09] MEDS: CEROVITE ADV FORMULA TAB PO SCH (08:03)
[2017-08-09] MEDS: AMOXICILLIN 500 MG CAP PO SCH ×2 (08:03→13:35)
[2017-08-09] MEDS: POTASSIUM CHLORIDE 20 MEQ TABCR PO SCH ×2 (08:03→13:35)
[2017-08-09] MEDS ORDERED: RANI150T3 PO (10:36)
[2017-08-09] MEDS ORDERED: FLV1 PO (10:36)
[2017-08-09] MEDS ORDERED: THM100 PO (10:36)
[2017-08-09] MEDS ORDERED: AMX500 PO (10:36)
[2017-08-09] MEDS ORDERED: CHLO10CA7 PO (10:36)
[2017-08-09] MEDS ORDERED: SUCR1TAB29 PO (10:36)
[2017-08-09] MEDS ORDERED: CNT PO (10:36)
[2017-08-09] MEDS ORDERED: METOPROLOL TARTRATE 25 MG TAB PO STA ×2 (11:01→13:13)
[2017-08-09] MEDS: CHLORDIAZEPOXIDE 5MG Q12H DOSE PO SCH (11:39)
[2017-08-09 11:49] VITALS: BP 114/83; PULSE 121; O2SAT 97
[2017-08-09 15:05] VITALS: BP 111/80; PULSE 88; TEMP 36.6; O2SAT 99
[2017-08-09 16:00] VITALS: O2SAT 99
--- NOTE | 2017-08-09 16:16 | ECHOCARDIOGRAM REPORT ---
*NOTICE TO RECEIVING [employer] This information is strictly Confidential and protected under [place] law. [place] law prohibits you from making any further disclosure of this information unless further disclosure is expressly permitted by the written consent of the person to whom it pertains or is authorized by law. A general authorization for the release of medical or other information is not sufficient for this purpose. Hospital accepts no responsibility if the information is made available to any other person, INCLUDING THE PATIENT. Interpretation Summary * Name: DINORA MICHEL Study Date: 08/09/2017 01:57 PM BP: 114/83 mmHg * Patient Location: 2\S\S231\S\1 HR: 121 * : 1995 (M/d/yyyy) Gender: Female Height: 65 in * Age: 22 yrs Ethnicity: CA Weight: 121 lb * Ordering Physician: Tez Sorensen * Referring Physician: Marcio Chapa * Performed By: Herb Amos RCS * * Reason For Study: Tachycardia * BSA: 1.6 m2 * -- Conclusions -- * Left ventricular systolic function is normal. * Right ventricular systolic pressure is normal. * No significant valvular disease Procedure Details * A complete two-dimensional transthoracic echocardiogram was performed (2D, M-mode, Doppler and color flow Doppler). Left Ventricle * The left ventricle is normal in size. * There is normal left ventricular wall thickness. * Ejection Fraction = 55-60%. * Left ventricular systolic function is normal. * The left ventricular wall motion is normal. Right Ventricle * The right ventricle is normal in size and function. Atria * The left atrial size is normal. * Right atrial size is normal. Mitral Valve * The mitral valve is grossly normal. * Significant mitral regurgitation is absent. Tricuspid Valve * The tricuspid valve anatomy is normal. * There is trace tricuspid regurgitation. * Right ventricular systolic pressure is normal. Aortic Valve * The aortic valve is not well visualized. * No hemodynamically significant valvular aortic stenosis. * There is no significant aortic regurgitation. Pulmonic Valve * The pulmonic valve is not well seen, but is grossly normal. * There is no significant pulmonary regurgitation. Great Vessels * The aortic root is normal size. Pericardium/Pleural * There is no pericardial effusion. Great Vessels * Normal inferior vena cava diameter and respiratory variation suggests normal central venous pressure. MMode 2D Measurements and Calculations IVSd 0.82 cm IVSs 0.96 cm LVIDd 3.7 cm LVIDs 2.5 cm LVPWd 0.74 cm LVPWs 0.99 cm IVS/LVPW 1.1 FS 33.0 % EDV(Teich) 58.5 ml ESV(Teich) 22.0 ml EF(Teich) 62.4 % EDV(cubed) 51.0 ml ESV(cubed) 15.3 ml EF(cubed) 69.9 % % IVS thick 17.3 % % LVPW thick 33.0 % LV mass(C)d 79.9 grams LV mass(C)dI 50.0 grams/m\S\2 LV mass(C)s 60.3 grams LV mass(C)sI 37.8 grams/m\S\2 SV(Teich) 36.5 ml SI(Teich) 22.8 ml/m\S\2 SV(cubed) 35.7 ml SI(cubed) 22.3 ml/m\S\2 Ao root diam 2.9 cm Ao root area 6.4 cm\S\2 ACS 1.3 cm LA dimension 3.0 cm LA/Ao 1.0 EDV(MOD-sp4) 93.0 ml ESV(MOD-sp4) 41.0 ml EF(MOD-sp4) 55.9 % EDV(MOD-sp2) 80.0 ml ESV(MOD-sp2) 41.0 ml EF(MOD-sp2) 48.8 % SV(MOD-sp4) 52.0 ml SI(MOD-sp4) 32.5 ml/m\S\2 SV(MOD-sp2) 39.0 ml SI(MOD-sp2) 24.4 ml/m\S\2 Doppler Measurements and Calculations MV E max victoria 66.8 cm/sec MV A max victoria 66.1 cm/sec MV E/A 1.0 MV P1/2t max victoria 69.0 cm/sec MV P1/2t 57.0 msec MVA(P1/2t) 3.9 cm\S\2 MV dec slope 354.5 cm/sec\S\2 MV dec time 0.24 sec Ao V2 max 100.2 cm/sec Ao max PG 4.0 mmHg Ao max PG (full) 0.97 mmHg LV V1 max PG 3.0 mmHg LV V1 max 87.2 cm/sec PA V2 max 83.5 cm/sec PA max PG 2.8 mmHg TR max victoria 83.5 cm/sec
[2017-08-09] MEDS ORDERED: LPR25 PO (16:54)
--- NOTE | 2017-08-09 17:06 | Discharge Instructions ---
Discharge Instructions Date of Service Aug 09, 2017. Admission Reason for Admission: Acute Pancreatitis, Alcohol Withdrawal Discharge Discharge Diagnosis / Problem: acute pancreatitis - resolved; alcohol withdrawal - resolving Discharge Goals Goal(s): Learn about illness, Diagnostic testing, Therapeutic intervention Activity Recommendations Activity Limitations: resume your previous activity (as tolerated over the next 3-4 days) . Instructions / Follow-Up Instructions / Follow-Up From Dr. Sorensen - 1. pancreatitis - please follow a low fat diet for the next 10 days. It is vital to your health that you abstain 100% from alcohol if possible. Drinking alcohol at this time will lead to a recurrence of your pancreatitis and cause harm to your liver. 2. alcohol withdrawal - please take a librium taper. The directions will be on the bottle. DO NOT DRINK ALCOHOL WITH THE LIBRIUM. It would be best to NOT drive while taking the librium. 3. Vitamins - please complete 1-month each of folic acid and thiamine. Please take a multi-vitamin daily indefinitely. 4. tachycardia - racing heart - this is likely due to your alcohol withdrawal. Your heart ultrasound (echo) was normal. Your thyroid level was normal. Please take metoprolol 25mg twice a day for about 1 week then stop. Take your first dose tonight at bedtime. 5. UTI (bladder infection) - please complete the amoxicillin course. Start this TONIGHT. 6. probable gastritis - this is irritation of the stomach lining. Please take the carafate and zantac until each bottle is finished. 7. Follow-up - please see your family doctor within 1 week. 8. Return to [facility] if - * you have fever over 100.5 degrees * you have worsening abdominal pain or vomiting * you have severe alcohol withdrawal symptoms that are not responding to the librium * inability to eat * any other concerns Current Hospital Diet Patient's current hospital diet: Low Fat Diet Discharge Diet Recommended Diet: Low Fat Diet (for about 10 days, then resume normal diet) Procedures Procedures Performed: CAT scan of the abdomen showing severe fatty liver and pancreatitis. Liver ultrasound also showing severe fatty liver. Pending Studies Studies pending at discharge: no Laboratory Results Hemoglobin A1c Test 08/06/17 05:34 Range/Units Estimated Average Glucose 94 mg/dl Hemoglobin A1c 4.9 4.5-5.6 % Lipid Panel Test 08/05/17 17:21 Range/Units Triglycerides Level 39 0-150 mg/dl Cholesterol Level 213 H 0-200 mg/dl HDL Cholesterol 118 mg/dl Cholesterol/HDL Ratio 1.8 LDL Cholesterol, Calculated 87 mg/dl Work Instructions Return To Work: 5 days Lifting Limitations: none Additional Instructions: Ms Davidson was hospitalized at [facility] from 08/05/17 to 08/09/17. Medical Emergencies . Who to Call and When: Medical Emergencies: If at any time you feel your situation is an emergency, please call 911 immediately. . Non-Emergent Contact Non-Emergency issues call your: Primary Care Provider Call Non-Emergent contact if: temperature is above 100.5, your pain is not controlled, your pain is worsening, your pain is unusual for you, your pain is concerning you, you have any medication questions . . "Provider Documentation" section prepared by Tez Sorensen. .
--- NOTE | 2017-08-10 08:44 | Discharge Summary ---
Discharge Summary Date of Service Aug 10, 2017. Discharge Summary Admission Date: Aug 05, 2017 at 15:13 Discharge Date: Aug 09, 2017 Discharge Disposition: Home Principal Diagnosis: acute alcoholic pancreatitis Problems/Secondary Diagnoses: 1. acute alcoholic hepatitis - improved 2. alcohol-induced pancytopenia - slowly improving 3. probable alcoholic gastritis 4. alcohol withdrawal - improved/resolving 5. alcoholism 6. hyponatremia, hypokalemia, hypomagnesemia - resolved 7. sinus tachycardia - likely combination of anxiety and alcohol withdrawal; echo wnl; TSH wnl 8. e. coli UTI 9. severe thrombocytopenia 2nd to etoh abuse - improving Procedures: 1. echocardiogram - * -- Conclusions -- * Left ventricular systolic function is normal. * Right ventricular systolic pressure is normal. * No significant valvular disease 2. CT abd/pelvis - IMPRESSION: 1. Infiltration of the peripancreatic fat, and peripancreatic fluid which extends into the retroperitoneum and right paracolic gutter. The findings are indicative of acute pancreatitis. There is no ductal dilatation. There is no current evidence of pancreatic necrosis. 2. Severe hepatic steatosis 3. No evidence of bowel obstruction. No evidence of free air 3. liver ultrasound - IMPRESSION: 1. Hepatic steatosis. Correlate with liver function tests to exclude steatohepatitis as a cause for abdominal pain. 2. No cholelithiasis or biliary ductal dilatation. 3. Hypoechogenic pancreatic parenchyma could be compatible with known pancreatitis. Medication Reconciliation New Medications: Chlordiazepoxide (Librium) 10 Mg Cap 10 MG PO DIRECTED, #13 CAP 0 Refills starting 08/09: take 1 tab BID day 1, 1 tab TID days 2/3, 1 tab BID days 4/5, 1/2 tab BID days 6/. Metoprolol Tartrate (Lopressor) 25 Mg Tab 25 MG PO BID, #30 TAB 0 Refills Ranitidine Hcl (Zantac) 150 Mg Tab 150 MG PO BID for 10 Days, #20 TAB 0 Refills Sucralfate (Carafate) 1 Gm Tab 1 GM PO ACHS for 7 Days, #28 TAB 0 Refills Amoxicillin (Amoxicillin) 500 Mg Cap 500 MG PO TID for 2 Days, #6 CAP 0 Refills for UTI Folic Acid (Folic Acid) 1 Mg Tab 1 MG PO QAM, #30 TAB 0 Refills Multivitamins/Minerals (Certavite/Antioxidants) 1 Tab Tab 1 TAB PO QAM, #90 TAB 3 Refills Thiamine HCl (Vitamin B-1) 100 Mg Tab 200 MG PO BID for 30 Days, #120 TAB 0 Refills Discharge Exam Physical Exam: General Appearance: WD/WN, no apparent distress ENT: pharynx normal Neck: no JVD Respiratory/Chest: lungs clear, normal breath sounds, no respiratory distress, no accessory muscle use Cardiovascular: regular rate, rhythm, no gallop, no murmur, normal peripheral pulses Abdomen / GI: normal bowel sounds, non tender, soft, + hepatomegaly (very mild) Extremities: no pedal edema Neurologic/Psychiatric: no motor/sensory deficits, alert, oriented x 3, + pertinent finding (minimal tremor of hands) Skin: no rash, + pertinent finding (multiple tattoos and piercings) Hospital Course HISTORY OF PRESENT ILLNESS: Ms. Davidson is a 22 y/o female with PMHx of ETOH Abuse and Anemia presents to the ED c/o epigastric abdominal pain/lower chest pain x 3 days. She reports a sudden onset of epigastric pain and chest pain that she describes as aching. She states multiple family members had the stomach flu so she initially didn't think much of it. She reports a cough and intermittent diarrhea with this. However, the pain continued to progress and she presented to the ED. She states pain is worsened by laying flat and is improving with pain medication. She reports associated nausea and emesis this AM but Zofran in the ED is helping. She is also reporting feelings of anxiety and chills but no fever. Per notes, she smelled of alcohol upon arriving to the emergency room. She denies H/O previous pancreatitis. She still has her gallbladder and denies any known issues with this. She reports she has been drinking alcohol a long time and knows she has a drinking problem. She states she currently drinks a quarter of a 5th of liquor. Last drink was this AM. She reports that she has withdrawn from ETOH in the past but denies H/O withdrawal seizures. She is reporting feelings of anxiousness and is tremulous at this time but mentating appropriately. She has a prior use of illegal drugs but does not utilize any illegal substances currently. She is currently on her menses. HOSPITAL COURSE: The patient was treated for her acute pancreatitis 2nd to alcohol abuse in the customary fashion with IVF, IV pain medications, and bowel rest. Her GI symptoms resolved fully and her lipase normalized with these measures. She was resumed on a diet and this was slowly advanced She was tolerating a low-fat diet prior to discharge. It was recommended she stay on a low-fat diet for 7-10 days post-discharge. Her stay was complicated by alcoholic hepatitis, probable alcoholic gastritis, e. coli UTI, hyponatremia/hypokalemia/hypomagnesemia, and pancytopenia also likely from her alcohol abuse. Her LFTs began to normalize with supportive care and her CBC also began to slowly improve. HepA, B, and C titers were all negative. Her platelets were significantly low with lowest levels in the 40s. On day of discharge she trended up into the 70s. B12/folate/TSH levels were all within normal limits. All electrolyte disturbances were resolved at time of discharge. E. coli UTI was treated with 2 days of IV rocephin followed by a course of oral amoxicillin. Gastritis symptoms improved with H2 mayito & carafate. The patient displayed signs of mild alcohol withdrawal. This was treated with scheduled librium and ativan prn. Intermittent tachycardia due to her withdrawal was treated with metoprolol. Of note - echocardiogram and TSH were both normal. She never had signs of DTs. At discharge she will complete a librium taper, and take 1 month each of folic acid & thiamine supplementation. MVI was recommended indefinitely. The patient declined any formal resource/help for her alcoholism. She was counseled to abstain 100% from alcohol. She was warned of the dangers of ongoing alcohol abuse including but not limited to cirrhosis, recurrent pancreatitis, and chronic pancreatitis. PCP - please check CBC, CMP, and magnesium level at time of hospital follow-up Total Time Spent: Greater than 30 minutes This includes examination of the patient, discharge planning, medication reconciliation, and communication with other providers. Discharge Instructions Please refer to the electronic Patient Visit Report (Discharge Instructions) for additional information. Follow-Up see Dr. Mullins within 1 week Additional Copies To William Mullins MD
--- NOTE | 2017-08-12 11:42 | EDITING REQUIRED CODING QUERY ---
CODING QUERY To promote full compliance with coding requirements relating to patient care, provider participation is requested in all cases of geographic information system analyst uncertainty. Please assist us with the question(s) below: Coding Question(s): Please clarify for proper coding purposes if patient has: Alcohol Dependence ( x ) Alcohol Abuse ( ) Unspecified ( ) Other ( ) Physician's Response(s): Thank you Digna Dasilva Principal Diagnosis: "_that condition established after study, to be chiefly responsible for occasioning the admission of the patient to the hospital for care." Co-Existing Principal Diagnosis: "_when two or more diagnoses equally meet the criteria for principal diagnosis as determined by the circumstances of admission, diagnostic work up, and/or therapy provided, and the Alphabetic Index, Tabular List, or another coding guideline does not provide sequencing direction, any one of the diagnoses may be sequenced first." "When the physician has documented what appears to be a current diagnosis in the body of the record, but has not included the diagnosis in the final diagnostic statement, the physician should be asked whether the diagnosis should be added." (Source [facility] 2 QTR90. p3-4)
== END 2017-08-09 17:46 | disposition home or self-care (01) | DRG 439 ==
LOC: C.EDB 11:25 → C.2T 15:13 → ENRESERV 15:41
PROVIDERS: ADMIT Internal Medicine; ATTEND Internal Medicine
DX: K85.20 Alcohol induced acute pancreatitis without necrosis or infection (principal); E87.1 Hypo-osmolality and hyponatremia; F10.239 Alcohol dependence with withdrawal, unspecified; N39.0 Urinary tract infection, site not specified; K29.20 Alcoholic gastritis without bleeding; E87.6 Hypokalemia; K70.10 Alcoholic hepatitis without ascites; K76.0 Fatty (change of) liver, not elsewhere classified; R74.0 Nonspecific elevation of levels of transaminase and lactic acid dehydrogenase [LDH]; D53.9 Nutritional anemia, unspecified; D69.6 Thrombocytopenia, unspecified; A49.8 Other bacterial infections of unspecified site; Z87.891 Personal history of nicotine dependence

== ENCOUNTER 2018-09-24 15:46 | Inpatient (IN) ==
--- OUTSIDE RECORDS SUMMARY | 2018-09-24 15:50 | External Medical Summary | Continuity of Care Document ---
:1995 Author Name Roxanne Obregon Address Unavailable Unavailable , Care Team Providers Name Role Phone Darci Obregon Unavailable [email or web address] [email or web address], [email or web address] Unavailable Unavailable Problems Active medical history not documented Allergies and Adverse Reactions Allergy history not documented Medications Medications not documented Procedures Procedures not documented Immunizations Immunizations not documented Plan of Treatment Planned Observations Planned Goals not documented Results No Known Results Results not documented
[2018-09-24] MEDS ORDERED: SODIUM CHLORIDE 0.9% 1000ML 2,000 ML IV ONE (16:03)
[2018-09-24] MEDS ORDERED: MoRPHine SULFATE 4 MG/ML 1 ML CARP\\VIAL IV STA (16:18)
[2018-09-24] MEDS ORDERED: ONDANSETRON INJ 2 MG/ML 2 ML VIAL IV STA (16:18)
[2018-09-24 16:23] LABS: Hematocrit (blood only) 38.9 % (37-47); Hemoglobin 13.2 g/dL (12.0-16.0); Mean Corpuscular Hemoglobin 32.7 pg (25-34); Mean Corpuscular Hgb Conc 33.9 g/dL (32-36); Mean Corpuscular Volume 96.3 fL (80-100); RDW Coefficient of Variation 16.7 % (11.5-14.5); Red Blood Count 4.04 M/uL (4.2-5.4); White Blood Count 3.48 K/uL (4.8-10.8)
[2018-09-24 16:39] LABS: POC Urine Bilirubin Negative (Negative); POC Urine Blood Negative (Negative); POC Urine Glucose Normal (Normal); POC Urine Ketones 3+ (Large) (Negative); POC Urine Leukocytes Negative (Negative); POC Urine Nitrite Negative (Negative); POC Urine Protein Negative (Negative); POC Urine Urobilinogen Normal (Normal); POC Urine pH 5 (4.5-7.5)
[2018-09-24 16:41] LABS: Basophils # (auto) 0.02 K/uL (0-0.2); Basophils % (auto) 0.6 %; Immature Granulocytes # (auto) 0.02 K/uL (0.00-0.02); Immature Granulocytes % (auto) 0.6 %; Lymphocytes # (auto) 0.57 K/uL (1.2-3.4); Lymphocytes % (auto) 16.4 %; Mean Platelet Volume 8.6 fL (7.4-10.4); Monocytes # (auto) 0.62 K/uL (0.11-0.59); Monocytes % (auto) 17.8 %; Neutrophils # (auto) 2.25 K/uL (1.4-6.5); Neutrophils % (auto) 64.6 %; Platelet Count 56 K/uL (130-400)
[2018-09-24 16:45] LABS: Appearance Urine Clear (Clear); Bacteria Urine Automated Negative (Negative); Bilirubin Urine Negative (Negative); Blood Urine Trace (Negative); Color Urine Yellow; Epithelial Cell Urine Auto >30 /lpf (0-5); Glucose Urine UA Negative (Negative); Leukocyte Esterase Urine Negative (Negative); Nitrite Urine Negative (Negative); Protein Urine 1+ (Negative); RBC Urine Automated 0-4 /hpf (0-4); Specific Gravity Urine 1.023 (1.000-1.030); Urobilinogen Urine Negative (Negative)
[2018-09-24 17:06] LABS: Albumin Globulin Ratio 1.3 (0.9-2); Albumin Level 4.7 gm/dl (3.4-5.0); BUN Creatinine Ratio 9.9 (10-20); Bilirubin,Total 0.5 mg/dl (0.2-1); Calcium 8.9 mg/dl (8.5-10.1); Creatinine Clr Calc Pharmacy 98.2 ml/min; Est GFR (African American) 132.7; Est GFR (Non-African American) 114.5; Globulin 3.6 gm/dl (2.5-4.0); Potassium 4.3 mmol/L (3.5-5.1); Total Protein 8.3 gm/dl (6.4-8.2)
[2018-09-24 17:06] LABS: Ketones Urine 4+ (Negative)
[2018-09-24 17:37] LABS: Base Excess VBG -14.9 mEq/L; Oxygen Saturation VBG 81.1 %; pH VBG 7.28 (7.36-7.41)
[2018-09-24] MEDS ORDERED: IOVERSOL 100ml IV PRN (17:39)
--- NOTE | 2018-09-24 17:56 | CT Scan Report ---
CT abd pelvis IV con only CLINICAL HISTORY: Severe abdominal pain and vomiting COMPARISON STUDY: July 2017 TECHNIQUE: The patient was scanned in a dynamic helical fashion during intravenous administration of 91 cc of Optiray 320. A dose lowering technique was utilized adhering to the principles of ALARA. CT DOSE: 267.04 mGy.cm FINDINGS: Lower chest: The heart is normal in size and configuration, without pericardial effusion. The lung ba ses and pleural spaces are clear. Liver: There is severe hepatic steatosis. No focal hepatic masses are visualized. Gallbladder: Borderline distended. No wall thickening. No pericholecystic fluid. No calculi identifie d. Spleen: Normal in size and attenuation. Pancreas: No peripancreatic masses are visualized. There is been interval resolution of the previousl y identified peripancreatic fluid and peripancreatic edema. Adrenal glands: Unremarkable. Kidneys: There is symmetric renal cortical enhancement. The kidneys are normal in size without hydron ephrosis. Bowel: There are no transition zones indicate bowel obstruction. There is no acute diverticulitis. Th ere is a 25 mm cystic lesion within the central pelvis. It is unclear whether this is extrinsic or ex trinsic to bowel. This was not visualized the prior study. This appears separate from the ovaries. Th ere is no evidence of acute appendicitis Peritoneum: There is no intraperitoneal free air or abdominal ascites. Vasculature: The abdominal aorta is normal in course and caliber. Adenopathy: None. Pelvic viscera: The bladder, and pelvic viscera are unremarkable. Skeletal structures: No destructive osseous lesions are seen. IMPRESSION: 1. Hepatic steatosis 2. No evidence of bowel obstruction. No evidence of free air 3. No evidence of acute appendicitis. No evidence of acute diverticulitis 4. Interval resolution of the peripancreatic fluid and edema 5. 2.5 cm cystic structure within the central pelvis. Without positive oral contrast, it is not possi ble to determine whether this is intrinsic or extrinsic to bowel. Electronically signed by: Jaime Sebastian M.D. 09/24/2018 5:54 PM
[2018-09-24] MEDS ORDERED: PROMETHAZINE HCL 25 MG in SODIUM CHLORIDE 0.9% 50 ML IV STA (18:14)
[2018-09-24] MEDS ORDERED: LACTATED RINGER'S 2,000 ML IV ONE ×2 (18:14→18:58)
[2018-09-24] MEDS ORDERED: PROMETHAZINE 25 MG/51 ML NSS IV ONE (18:17)
[2018-09-24] MEDS ORDERED: LORazepam 0.5 MG/1 ML VIAL IV STA ×2 (18:40)
[2018-09-24 18:42] LABS: Amphetamines+Metham, Urine Neg (Neg); Barbiturates, Urine Neg (Neg); Benzodiazepine, Urine Neg (Neg); Cocaine, Urine Neg (Neg); MDMA (Ecstacy), Urine Neg (Neg); Methadone, Urine Neg (Neg); Opiate, Urine Neg (Neg); Phencyclidine, Urine Neg (Neg)
[2018-09-24] MEDS ORDERED: GABAPENTIN 1200MG ALCOHOL WITHDRAWAL LOAD PO STA (18:59)
[2018-09-24] MEDS ORDERED: FOLIC ACID 1 MG in SYRINGE 9.8 ML IV STA (19:01)
[2018-09-24] MEDS ORDERED: THIAMINE HCL 100 MG in SYRINGE 9 ML IV STA (19:01)
[2018-09-24] MEDS: PANTOprazole 40 MG in SYRINGE 0 ML IV SCH (19:20)
--- NOTE | 2018-09-24 19:31 | History & Physical Report ---
Date of Service September 24, 2018 Assessment & Plan (1) Epigastric pain: Likely secondary to beginning pancreatitis, gastritis or peptic ulcer disease Associated with vomiting N.p.o. for now Given 2 L of normal saline bolus, and additional 2 L of LR bolus Protonix IV twice a day [employer] consulted IV fluids per #2 Lactic acidosis Bicarb of 9, pH 7.28, lactate level 4 Discussed case with code official Dr. Wayne Will give additional 2 L of LR boluses, check PRP mag and phosphorus at 9 PM and will decide further IV fluids Monitor in ICU Alcohol intoxication, history of alcoholism Alcohol level elevated We will initiate gabapentin protocol for alcohol withdrawal protocol PRN Ativan Thrombocytopenia Chronic, likely secondary to alcoholism No signs of bleeding Monitor Disposition pending Discussed case with Dr. Gomez, the sap fico architect Discussed case with patient and she is understanding, agreeable, comfortable with plan of care Inquired if she would like me to update her family of her critical status, the patient declined Patient seen and examined with RN throughout the whole encounter History of Present Illness 23-year-old female with history of alcoholism, alcoholic pancreatitis, gastritis, presenting with persistent epigastric pain and vomiting since yesterday evening. Patient admits to drinking alcohol 6 shots of vodka every night and also smokes 6 cigarettes/day. Last night, the patient admits drinking 6 shots of vodka, and subsequently developed vomiting of previously ingested food, nonbloody, and developed epigastric pain. Symptoms progressed prompting her to consult at the ER. At the ER, patient was given 2 L bolus of normal saline, morphine, Phenergan. CT abdomen did not show signs of pancreatitis. Lipase level normal. Bicarb 9, pH from VBG 7.28, lactate level 4. Alcohol level elevated, urine drug screen positive for marijuana. On exam, the patient is not in distress but appears uncomfortable secondary to epigastric pain. Nausea has improved. Denies headache, dizziness, chest pain, shortness of breath. Denies melena or hematochezia. No other symptoms States she is she is always anxious and this is not increased at this time. Otherwise mood is stable according to patient. Primary Care Provider: William Mullins MD Allergies Allergy/AdvReac Type Severity Reaction Status Date / Time amairani Allergy Mild GUMS SWELL Verified 09/24/18 16:46 Home Medications Home Medications Medication Instructions Recorded Confirmed Type cholecalciferol (vitamin D3) 0 unit PO DAILY 09/24/18 09/24/18 History [Vitamin D3] melatonin 5 mg PO HS 09/24/18 09/24/18 History multivitamin 1 tab PO QAM 09/24/18 09/24/18 History omega 1-opv-ljj-fish oil [Fish Oil] 1 cap PO DAILY 09/24/18 09/24/18 History vitamin B complex 1 tab PO DAILY 09/24/18 09/24/18 History vitamin E 0 unit PO DAILY 09/24/18 09/24/18 History Past Med/Surg History Medical History Alcohol withdrawal Pancreatitis Social History Preferred Language: Jordanian Communication Ability: Effective Collection Manager Required: No Beliefs That Will Affect Care: None Current Living Situation: Significant Other Other Information That Helps Us Care for You: No Feels Safe at Home: Yes Safety Concerns: Feels Safe At This Time Smoking Status: Current every day smoker Tobacco Type: cigarettes Cigarettes Per Day: 7-10 Do You Dip or Chew Tobacco: No Second Hand Exposure: Yes Tobacco Cessation Education Requested by Patient: No Hx Alcohol Use: No Hx Substance Use: Yes substance use type: marijuana Last Used Substance: Days (ago) Review of Systems Review of Systems: All systems reviewed & are unremarkable except as noted in HPI & below Physical Exam Physical Exam: General- oriented x 3, somewhat uncomfortable secondary to pain, speaks in sentences with no effort or accessory muscle use Eyes- anicteric Neck- no JVD Lungs- clear breath sounds bilaterally, no rales/wheezes Heart- normal rate, regular rhythm; no murmurs Abdomen- normal bowel sounds, nondistended, soft, positive moderate tenderness in epigastric area Extremities- no pretibial edema, no calf tenderness Neuro- alert, oriented x 3; no gross focal neurologic deficits Skin- warm & dry Results & Data Vital Signs (Past 12 Hours) Vital Signs Temp Pulse Pulse Resp BP BP Pulse Ox 09/24/18 19:00 93 H 22 122/76 100 09/24/18 18:39 114 H 27 H 121/82 93 09/24/18 18:32 99 09/24/18 18:31 100 H 18 99 09/24/18 18:30 113 H 21 99 09/24/18 18:00 143 H 17 127/91 98 09/24/18 17:47 120 H 15 97 09/24/18 17:46 120 H 9 L 118/74 97 09/24/18 17:13 120 H 29 H 98 09/24/18 16:32 120 H 19 127/83 99 09/24/18 15:50 36.6 C 100 H 20 116/89 99 Laboratory Results Laboratory Results - last 24 hr 09/24/18 09/24/18 09/24/18 16:12 16:12 16:21 WBC 3.48 L RBC 4.04 L Hgb 13.2 Hct 38.9 MCV 96.3 MCH 32.7 MCHC 33.9 RDW Std Deviation 59.0 H RDW Coeff of Nayana 16.7 H Plt Count 56 L MPV 8.6 Immature Gran % (Auto) 0.6 Neut % (Auto) 64.6 Lymph % (Auto) 16.4 [place] % (Auto) 17.8 Eos % (Auto) 0.0 Baso % (Auto) 0.6 Immature Gran # (Auto) 0.02 Neut # (Auto) 2.25 Lymph # (Auto) 0.57 L [place] # (Auto) 0.62 H Eos # (Auto) 0.00 Baso # (Auto) 0.02 VBG pH VBG pCO2 VBG pO2 VBG HCO3 VBG O2 Saturation VBG Base Excess Barometric Pressure Sodium 135 L Potassium 4.3 Chloride 101 Carbon Dioxide 9 L* Anion Gap 25.0 H BUN 7 Creatinine 0.73 Est Cr Clr Drug Dosing 98.2 Est GFR ( Amer) 132.7 Est GFR (Non-Af Amer) 114.5 BUN/Creatinine Ratio 9.9 L Glucose 52 L* Osmolality POC Lactic Acid Cesar Calcium 8.9 Total Bilirubin 0.5 AST 60 H ALT 37 Alkaline Phosphatase 73 Total Protein 8.3 H Albumin 4.7 Globulin 3.6 Albumin/Globulin Ratio 1.3 Lipase 63 L Urine Color Urine Appearance Urine pH POC Urine pH 5 Ur Specific Mcallister Urine Protein POC Urine Protein Negative Urine Glucose (UA) POC Ur Glucose (UA) Normal Urine Ketones POC Urine Ketones 3+ (Large) H Urine Blood POC Urine Blood Negative Urine Nitrite POC Urine Nitrite Negative Urine Bilirubin POC Urine Bilirubin Negative Urine Urobilinogen POC Urine Urobilinogen Normal Ur Leukocyte Esterase POC U Leukocyte Esteras Negative Urine WBC (Auto) Urine RBC (Auto) U Hyaline Cast (Auto) U Epithel Cells (Auto) Urine Bacteria (Auto) Urine Osmolality POC Ur Test Salicylates Urine Opiates Screen Ur Methadone, Qual Acetaminophen Urine Barbiturates Ur Phencyclidine (PCP) U Amphetamin/Meth Scrn MDMA (Ecstasy) Screen U Benzodiazepines Scrn Ur Cocaine Metabolite U Marijuana (THC) Screen Ethyl Alcohol mg/dL 09/24/18 09/24/18 09/24/18 16:21 16:21 16:34 WBC RBC Hgb Hct MCV MCH MCHC RDW Std Deviation RDW Coeff of Nayana Plt Count MPV Immature Gran % (Auto) Neut % (Auto) Lymph % (Auto) [place] % (Auto) Eos % (Auto) Baso % (Auto) Immature Gran # (Auto) Neut # (Auto) Lymph # (Auto) [place] # (Auto) Eos # (Auto) Baso # (Auto) VBG pH VBG pCO2 VBG pO2 VBG HCO3 VBG O2 Saturation VBG Base Excess Barometric Pressure Sodium Potassium Chloride Carbon Dioxide Anion Gap BUN Creatinine Est Cr Clr Drug Dosing Est GFR ( Amer) Est GFR (Non-Af Amer) BUN/Creatinine Ratio Glucose Osmolality POC Lactic Acid Cesar Calcium Total Bilirubin AST ALT Alkaline Phosphatase Total Protein Albumin Globulin Albumin/Globulin Ratio Lipase Urine Color Yellow Urine Appearance Clear Urine pH 5.0 POC Urine pH Ur Specific Mcallister 1.023 Urine Protein 1+ H POC Urine Protein Urine Glucose (UA) Negative POC Ur Glucose (UA) Urine Ketones 4+ H POC Urine Ketones Urine Blood Trace H POC Urine Blood Urine Nitrite Negative POC Urine Nitrite Urine Bilirubin Negative POC Urine Bilirubin Urine Urobilinogen Negative POC Urine Urobilinogen Ur Leukocyte Esterase Negative POC U Leukocyte Esteras Urine WBC (Auto) 1-5 Urine RBC (Auto) 0-4 U Hyaline Cast (Auto) 1-5 U Epithel Cells (Auto) >30 H Urine Bacteria (Auto) Negative Urine Osmolality 753 POC Ur Test NEG Salicylates Urine Opiates Screen Ur Methadone, Qual Acetaminophen Urine Barbiturates Ur Phencyclidine (PCP) U Amphetamin/Meth Scrn MDMA (Ecstasy) Screen U Benzodiazepines Scrn Ur Cocaine Metabolite U Marijuana (THC) Screen Ethyl Alcohol mg/dL 09/24/18 09/24/18 09/24/18 16:34 17:23 17:23 WBC RBC Hgb Hct MCV MCH MCHC RDW Std Deviation RDW Coeff of Nayana Plt Count MPV Immature Gran % (Auto) Neut % (Auto) Lymph % (Auto) [place] % (Auto) Eos % (Auto) Baso % (Auto) Immature Gran # (Auto) Neut # (Auto) Lymph # (Auto) [place] # (Auto) Eos # (Auto) Baso # (Auto) VBG pH 7.28 L VBG pCO2 22 L VBG pO2 52 VBG HCO3 10 VBG O2 Saturation 81.1 VBG Base Excess -14.9 Barometric Pressure 726.6 Sodium Potassium Chloride Carbon Dioxide Anion Gap BUN Creatinine Est Cr Clr Drug Dosing Est GFR ( Amer) Est GFR (Non-Af Amer) BUN/Creatinine Ratio Glucose Osmolality POC Lactic Acid Cesar Calcium Total Bilirubin AST ALT Alkaline Phosphatase Total Protein Albumin Globulin Albumin/Globulin Ratio Lipase Urine Color Urine Appearance Urine pH POC Urine pH Ur Specific Mcallister Urine Protein POC Urine Protein Urine Glucose (UA) POC Ur Glucose (UA) Urine Ketones POC Urine Ketones Urine Blood POC Urine Blood Urine Nitrite POC Urine Nitrite Urine Bilirubin POC Urine Bilirubin Urine Urobilinogen POC Urine Urobilinogen Ur Leukocyte Esterase POC U Leukocyte Esteras Urine WBC (Auto) Urine RBC (Auto) U Hyaline Cast (Auto) U Epithel Cells (Auto) Urine Bacteria (Auto) Urine Osmolality POC Ur Test Salicylates Urine Opiates Screen Neg Ur Methadone, Qual Neg Acetaminophen Urine Barbiturates Neg Ur Phencyclidine (PCP) Neg U Amphetamin/Meth Scrn Neg MDMA (Ecstasy) Screen Neg U Benzodiazepines Scrn Neg Ur Cocaine Metabolite Neg U Marijuana (THC) Screen Pos H Ethyl Alcohol mg/dL 156.0 H 09/24/18 09/24/18 09/24/18 17:50 18:13 18:45 WBC RBC Hgb Hct MCV MCH MCHC RDW Std Deviation RDW Coeff of Nayana Plt Count MPV Immature Gran % (Auto) Neut % (Auto) Lymph % (Auto) [place] % (Auto) Eos % (Auto) Baso % (Auto) Immature Gran # (Auto) Neut # (Auto) Lymph # (Auto) [place] # (Auto) Eos # (Auto) Baso # (Auto) VBG pH VBG pCO2 VBG pO2 VBG HCO3 VBG O2 Saturation VBG Base Excess Barometric Pressure Sodium Potassium Chloride Carbon Dioxide Anion Gap BUN Creatinine Est Cr Clr Drug Dosing Est GFR ( Amer) Est GFR (Non-Af Amer) BUN/Creatinine Ratio Glucose Osmolality 320 H POC Lactic Acid Cesar 4.75 H Calcium Total Bilirubin AST ALT Alkaline Phosphatase Total Protein Albumin Globulin Albumin/Globulin Ratio Lipase Urine Color Urine Appearance Urine pH POC Urine pH Ur Specific Mcallister Urine Protein POC Urine Protein Urine Glucose (UA) POC Ur Glucose (UA) Urine Ketones POC Urine Ketones Urine Blood POC Urine Blood Urine Nitrite POC Urine Nitrite Urine Bilirubin POC Urine Bilirubin Urine Urobilinogen POC Urine Urobilinogen Ur Leukocyte Esterase POC U Leukocyte Esteras Urine WBC (Auto) Urine RBC (Auto) U Hyaline Cast (Auto) U Epithel Cells (Auto) Urine Bacteria (Auto) Urine Osmolality POC Ur Test Salicylates < 1.7 L Urine Opiates Screen Ur Methadone, Qual Acetaminophen < 2 L Urine Barbiturates Ur Phencyclidine (PCP) U Amphetamin/Meth Scrn MDMA (Ecstasy) Screen U Benzodiazepines Scrn Ur Cocaine Metabolite U Marijuana (THC) Screen Ethyl Alcohol mg/dL Code Status & VTE Plan Code Status Full code as per patient VTE Prophylaxis Plan VTE Prophylaxis will be ordered: Yes Reason for no VTE drug order: Contraindicated
[2018-09-24 19:36] LABS: Acetaminophen < 2 ug/ml (10-30); Salicylate < 1.7 mg/dl (2.8-20)
[2018-09-24] MEDS ORDERED: ICU PROTOCOL FOR HYPERGLYCEMIA PRN (19:47)
[2018-09-24] MEDS ORDERED: DEXTROSE 50% 50 ML SYRINGE IV ONE (19:50)
[2018-09-24] MEDS ORDERED: GABAPENTIN 600 MG TAB PO SCH (20:00)
[2018-09-24] MEDS: THIAMINE HCL 100 MG in SYRINGE 9 ML IV SCH ×2 (20:04→20:06)
--- NOTE | 2018-09-24 20:15 | Critical Care Consultation ---
Date of Consultation September 24, 2018 Supervising Physician Co-Signing Physician Notes PLAN: Neuro: Acute alcohol intoxication Continuous marijuana abuse Resp: Tobacco smoker -Smoking cessation education CV: Tachycardia -Likely secondary to nausea and vomiting Fluids/Renal: High gap metabolic acidosis -Aggressive volume repletion -Osmolar gap explained by ethyl alcohol -Normosol M for hypoglycemia and continued volume expansion ID: Leukopenia -This has occurred with other hospital encounters which the patient has been drinking alcohol -Suspect toxic bone marrow suppression GI/Nutrition: Elevated AST -Suspect mild alcoholic hepatitis Heme: Pancytopenia -Check retake count again suspect toxic ethyl alcohol effects DVT prophylaxis: SCDs, chemical prophylaxis Contra indicated given thrombocytopenia Endocrine: ICU hyperglycemia protocol Hypoglycemia -Likely secondary to alcoholic ketoacidosis: Mild Vascular access: Peripheral IVs Code Status: Full Once patient's bicarb starts to improve patient will be stable for downgrade to MedSur. History of Present Illness Attending Physician: Rex Garsia MD Allergies Allergy/AdvReac Type Severity Reaction Status Date / Time amairani Allergy Mild GUMS SWELL Verified 09/24/18 16:46 Home Medications Home Medications Medication Instructions Recorded Confirmed Type cholecalciferol (vitamin D3) 0 unit PO DAILY 09/24/18 09/24/18 History [Vitamin D3] melatonin 5 mg PO HS 09/24/18 09/24/18 History multivitamin 1 tab PO QAM 09/24/18 09/24/18 History omega 2-srx-fan-fish oil [Fish Oil] 1 cap PO DAILY 09/24/18 09/24/18 History vitamin B complex 1 tab PO DAILY 09/24/18 09/24/18 History vitamin E 0 unit PO DAILY 09/24/18 09/24/18 History Patient History Medical History Alcohol withdrawal Pancreatitis Social History Feels Safe at Home: Yes Smoking Status: Current every day smoker Results & Data Vital Signs (Past 12 Hours) Vital Signs Temp Pulse Pulse Resp BP BP Pulse Ox 09/24/18 19:00 93 H 22 122/76 100 09/24/18 18:39 114 H 27 H 121/82 93 09/24/18 18:32 99 09/24/18 18:31 100 H 18 99 09/24/18 18:30 113 H 21 99 09/24/18 18:00 143 H 17 127/91 98 09/24/18 17:47 120 H 15 97 09/24/18 17:46 120 H 9 L 118/74 97 09/24/18 17:13 120 H 29 H 98 09/24/18 16:32 120 H 19 127/83 99 09/24/18 15:50 36.6 C 100 H 20 116/89 99
[2018-09-24] MEDS: MoRPHine SULFATE 4 MG/ML 1 ML CARP\\VIAL IV PRN (20:24)
[2018-09-24 20:26] LABS: BUN Creatinine Ratio 7.3 (10-20); Creatinine Clr Calc Pharmacy 127.8 ml/min; Est GFR (African American) 146.8; Est GFR (Non-African American) 126.7; Magnesium 1.3 mg/dl (1.8-2.4); Phosphorus 2.6 mg/dl (2.5-4.9); Potassium 4.3 mmol/L (3.5-5.1)
[2018-09-24 20:30] LABS: Calcium 7.5 mg/dl (8.5-10.1)
--- NOTE | 2018-09-24 20:31 | Emergency Department Note ---
Entered by Cornelius Vasquez acting as a scribe for Tony Alonso DO History of Present Illness General Chief complaint: Flu Like Symptoms Stated complaint: PAIN,NAUSEA,VOMITING Source: patient History of Present Illness Provider complaint: Abdominal pain Onset (ago): day(s) 1 Location: abdomen Radiation: back Severity: similar to prior episodes Pain Consistency: + constant Maximum Pain Intensity: 10 Relieved By: + other (Leaning forward) Exacerbated By: + none Associated symptoms: + nausea/vomiting, + shortness of breath and + other (No diarrhea, No constipation, No urinary symptoms, No vaginal discharge or bleeding); no fever/chills The patient is a 23 year old female who presents to the Emergency Room with complaints of constant epigastric abdominal pain that started last night. She rates the pain as a 10/10 and notes it sometimes radiates to her back but states it feels somewhat better when she leans forward. The patient has also been nauseous and has vomited at least 12 times since the pain has started. The patient did admit to drinking 6-7 shots of alcohol last night around 2100 but has not had any alcohol since. She does however have a history of drinking regularly. She also has a history of pancreatitis and states this feels similar to her last flare up. The patient denies any abdominal surgeries, fevers, diarrhea, constipation, urinary symptoms, vaginal bleeding or discharge but does have some shortness of breath caused by her pain. Home Medications Home Medications Medication Instructions Recorded Confirmed Type cholecalciferol (vitamin D3) 0 unit PO DAILY 09/24/18 09/24/18 History [Vitamin D3] melatonin 5 mg PO HS 09/24/18 09/24/18 History multivitamin 1 tab PO QAM 09/24/18 09/24/18 History omega [id number] oil [Fish Oil] 1 cap PO DAILY 09/24/18 09/24/18 History vitamin B complex 1 tab PO DAILY 09/24/18 09/24/18 History vitamin E 0 unit PO DAILY 09/24/18 09/24/18 History Allergies Allergy/AdvReac Type Severity Reaction Status Date / Time amairani Allergy Mild GUMS SWELL Verified 09/24/18 16:46 Past Med/Surg History Medical History Alcohol withdrawal Pancreatitis Social History Preferred Language: Ghanaian Communication Ability: Effective Briar Cutter Required: No Beliefs That Will Affect Care: None Current Living Situation: Significant Other Other Information That Helps Us Care for You: No Feels Safe at Home: Yes Safety Concerns: Feels Safe At This Time Smoking Status: Current every day smoker Tobacco Type: cigarettes Cigarettes Per Day: 7-10 Do You Dip or Chew Tobacco: No Second Hand Exposure: Yes Tobacco Cessation Education Requested by Patient: No Hx Alcohol Use: No Hx Substance Use: Yes substance use type: marijuana Last Used Substance: Days (ago) Review of Systems See HPI for pertinent positives & negatives. and A total of 10 systems reviewed and were otherwise negative Physical Exam Vital Signs Vital Signs - 24 hr 09/24/18 15:50 09/24/18 16:32 09/24/18 17:13 Temperature 36.6 C Temperature Source Oral Sepsis Recent Fever Within 48 Hours No Sepsis New/Unexplained Change in Mental Status No Sepsis Action Taken by Nursing No Action Required Pulse Rate 100 H 120 H Pulse Rate [Finger] 120 H Pulse Rate from SpO2 Sensor 120 H Pulse Rhythm [Finger] Pulse Strength [Finger] Respiratory Rate 20 19 29 H Respiratory Effort / Characteristics Respiratory Depth Respiratory Pattern Blood Pressure 116/89 Blood Pressure [Right Arm] 127/83 Blood Pressure Mean 98 Blood Pressure Mean [Right Arm] 97 Blood Pressure Position [Right Arm] Pulse Oximetry 99 99 98 Oxygen Delivery Method Room Air 09/24/18 17:46 09/24/18 17:47 09/24/18 18:00 Temperature Temperature Source Sepsis Recent Fever Within 48 Hours Sepsis New/Unexplained Change in Mental Status Sepsis Action Taken by Nursing Pulse Rate 120 H 120 H 143 H Pulse Rate [Finger] Pulse Rate from SpO2 Sensor 122 H 120 H 140 H Pulse Rhythm [Finger] Pulse Strength [Finger] Respiratory Rate 9 L 15 17 Respiratory Effort / Characteristics Respiratory Depth Respiratory Pattern Blood Pressure 118/74 127/91 Blood Pressure [Right Arm] Blood Pressure Mean 88 103 Blood Pressure Mean [Right Arm] Blood Pressure Position [Right Arm] Pulse Oximetry 97 97 98 Oxygen Delivery Method 09/24/18 18:30 09/24/18 18:31 09/24/18 18:32 Temperature Temperature Source Sepsis Recent Fever Within 48 Hours Sepsis New/Unexplained Change in Mental Status Sepsis Action Taken by Nursing Pulse Rate 113 H Pulse Rate [Finger] 100 H Pulse Rate from SpO2 Sensor 112 H Pulse Rhythm [Finger] Pulse Strength [Finger] Respiratory Rate 21 18 Respiratory Effort / Characteristics Respiratory Depth Respiratory Pattern Blood Pressure Blood Pressure [Right Arm] Blood Pressure Mean Blood Pressure Mean [Right Arm] Blood Pressure Position [Right Arm] Pulse Oximetry 99 99 99 Oxygen Delivery Method Room Air Room Air 09/24/18 18:39 09/24/18 19:00 09/24/18 20:06 Temperature 36.9 C Temperature Source Oral Sepsis Recent Fever Within 48 Hours Sepsis New/Unexplained Change in Mental Status Sepsis Action Taken by Nursing Pulse Rate 114 H 93 H Pulse Rate [Finger] 110 H Pulse Rate from SpO2 Sensor 114 H 93 H Pulse Rhythm [Finger] Regular Pulse Strength [Finger] Normal Respiratory Rate 27 H 22 24 Respiratory Effort / Characteristics Non-Labored Spontaneous Respiratory Depth Normal Respiratory Pattern Regular Blood Pressure 121/82 122/76 Blood Pressure [Right Arm] 129/93 Blood Pressure Mean 95 91 Blood Pressure Mean [Right Arm] 105 Blood Pressure Position [Right Arm] Lying Pulse Oximetry 93 100 100 Oxygen Delivery Method Room Air GENERAL: Sitting up in bed, alert, disheveled appearing, well nourished, moderate distress holding epigastric region, non-toxic EYE EXAM: normal conjunctiva. OROPHARYNX: no exudate, no erythema, lips, buccal mucosa, and tongue normal and mucous membranes are moist NECK: supple, no nuchal rigidity, no adenopathy, non-tender LUNGS: Clear to auscultation. Normal chest wall mechanics HEART: no murmurs, S1 normal and S2 normal ABDOMEN: abdomen soft, Tenderness to the epigastric region, normo-active bowel, sounds, no masses, no rebound or guarding. BACK: Back is symmetrical on inspection and there is no deformity, no midline tenderness, no CVA tenderness. SKIN: no rashes and no bruising UPPER EXTREMITIES: upper extremities are grossly normal. LOWER EXTREMITIES: No pitting edema. NEURO EXAM: Normal sensorium, cranial nerves II-XII grossly intact, normal speech, no gross weakness of arms, no gross weakness of legs. Course ED COURSE: Vital signs were reviewed and showed tachycardia. The patients medical record was reviewed The above diagnostic studies were performed and reviewed. ED treatments and interventions as stated above. 1553: The patient was evaluated in room A10. A complete history and physical examination was performed. 5: I spoke to Matilda PENG, who is under Dr. Adele Tapia Hospitalist, about the patient's case and she is going to evaluate the patient. 1900: After evaluation, Dr. Angulo will be accepting the patient for further evaluation. Based on the patients age, coexisting illnesses, exam and lab findings the decision to treat as an [inpatient][outpatient] was made. The patient remained stable while under my care. [The patient appeared well at the time of discharge.] [The patient will be evaluated for further management.] Consultations Consultation #1: I spoke to Matilda PENG, who is under Dr. Adele Justiceist, about the patient's case and she is going to evaluate the patient. Time: 18:15 Administered Medications Lactated Ringer's (Lr) 2,000 mls @ 999 mls/hr IV .Q2H1M ONE Stop: 09/24/18 20:58 Last Admin: 09/24/18 20:04 Dose: Not Given Documented by: [id number] Thiamine HCl 100 mg/ Syringe 10 mls @ 2 mls/hr IV DAILY CHUN Stop: 10/24/18 18:58 Last Admin: 09/24/18 20:04 Dose: Not Given Documented by: [id number] Pantoprazole Sodium 40 mg/ (Syringe) 10 mls @ 5 mls/min IV BID@0900,2100 CHUN Stop: 10/24/18 19:14 Last Admin: 09/24/18 19:20 Dose: 5 mls/min Documented by: [id number] Discontinued Medications Dextrose (Dextrose 50%) Confirm Administered Dose 50 ml IV .STK-MED ONE Stop: 09/24/18 19:51 Last Admin: 09/24/18 20:15 Dose: 50 ml Documented by: [id number] Sodium Chloride (Nss 1000ml) 2,000 mls @ 999 mls/hr IV .Q2H1M ONE Stop: 09/24/18 18:03 Last Infusion: 09/24/18 18:25 Dose: 0 mls/hr Documented by: [id number] Admin: 09/24/18 16:21 Dose: 999 mls/hr Documented by: [id number] Promethazine HCl 25 mg/ Sodium (Chloride) 51 mls @ 204 mls/hr IV NOW STA Stop: 09/24/18 18:28 Last Infusion: 09/24/18 18:42 Dose: 0 mls/hr Documented by: [id number] Admin: 09/24/18 18:21 Dose: 204 mls/hr Documented by: [id number] Lactated Ringer's (Lr) 2,000 mls @ 999 mls/hr IV .Q2H1M ONE Stop: 09/24/18 20:14 Last Admin: 09/24/18 18:28 Dose: 999 mls/hr Documented by: [id number] Lorazepam (Ativan) 0.5 mg in 1 mls @ 1 mls/min IV NOW STA Stop: 09/24/18 18:41 Last Admin: 09/24/18 18:53 Dose: Not Given Documented by: [id number] Lorazepam (Ativan) 0.5 mg in 1 mls @ 1 mls/min IV NOW STA Stop: 09/24/18 18:41 Last Admin: 09/24/18 18:53 Dose: 1 mls/min Documented by: [id number] Ioversol (Optiray 320 100ml) 91 ml IV ONCE PRN PRN Reason: Interaction Checking Stop: 09/28/18 17:38 Last Admin: 09/24/18 17:40 Dose: 91 ml Documented by: [id number] Morphine Sulfate (Morphine Sulfate) 6 mg IV NOW STA Stop: 09/24/18 16:19 Last Admin: 09/24/18 16:28 Dose: 6 mg Documented by: [id number] Ondansetron HCl (Zofran) 4 mg IV NOW STA Stop: 09/24/18 16:19 Last Admin: 09/24/18 16:28 Dose: 4 mg Documented by: [id number] Promethazine HCl (Phenergan) Confirm Administered Dose 25 mg IV .STK-MED ONE Stop: 09/24/18 18:18 Last Admin: 09/24/18 18:22 Dose: Not Given Documented by: [id number] Medical Decision Making Differential Diagnosis Differential diagnoses includes but is not limited to gastritis, peptic ulcer disease, GERD, gallbladder disease, pancreatitis, small bowel obstruction, acute coronary syndrome, pericarditis, ischemic bowel, irritable bowel disease, irritable bowel syndrome, appendicitis, diverticulitis, malignancy, hernia, urinary tract infection, torsion, /ectopic , perforation, trauma, infectious. Medical Records Attestation: I reviewed the patient's medical records. Home Medications Current Medication List: was personally reviewed by me Laboratory Data Attestation: I reviewed the patient's lab results. Result diagrams: 09/24/18 16:12 09/24/18 16:12 Lab Results 09/24/18 09/24/18 09/24/18 Range/Units 16:12 16:12 16:21 WBC 3.48 L (4.8-10.8) K/uL RBC 4.04 L (4.2-5.4) M/uL Hgb 13.2 (12.0-16.0) g/dL Hct 38.9 (37-47) % MCV 96.3 (80-100) fL MCH 32.7 (25-34) pg MCHC 33.9 (32-36) g/dL RDW Std Deviation 59.0 H (36.4-46.3) fL RDW Coeff of Nayana 16.7 H (11.5-14.5) % Plt Count 56 L (130-400) K/uL MPV 8.6 (7.4-10.4) fL Immature Gran % (Auto) 0.6 % Neut % (Auto) 64.6 % Lymph % (Auto) 16.4 % [place] % (Auto) 17.8 % Eos % (Auto) 0.0 % Baso % (Auto) 0.6 % Immature Gran # (Auto) 0.02 (0.00-0.02) K/uL Neut # (Auto) 2.25 (1.4-6.5) K/uL Lymph # (Auto) 0.57 L (1.2-3.4) K/uL [place] # (Auto) 0.62 H (0.11-0.59) K/uL Eos # (Auto) 0.00 (0-0.5) K/uL Baso # (Auto) 0.02 (0-0.2) K/uL VBG pH (7.36-7.41) VBG pCO2 (38-50) mmHg VBG pO2 mmHg VBG HCO3 mmol/L VBG O2 Saturation % VBG Base Excess mEq/L Barometric Pressure mm/Hg Sodium 135 L (136-145) mmol/L Potassium 4.3 (3.5-5.1) mmol/L Chloride 101 (98-107) mmol/L Carbon Dioxide 9 L* (21-32) mmol/L Anion Gap 25.0 H (3-11) BUN 7 (7-18) mg/dl Creatinine 0.73 (0.6-1.2) mg/dl Est Cr Clr Drug Dosing 98.2 ml/min Est GFR ( Amer) 132.7 Est GFR (Non-Af Amer) 114.5 BUN/Creatinine Ratio 9.9 L (10-20) Glucose 52 L* (70-99) mg/dl POC Glucose (70-99) Osmolality (280-300) mOsm/kg POC Lactic Acid Cesar (0.90-1.70) mmol/L Calcium 8.9 (8.5-10.1) mg/dl Total Bilirubin 0.5 (0.2-1) mg/dl AST 60 H (15-37) U/L ALT 37 (12-78) U/L Alkaline Phosphatase 73 (45-117) U/L Total Protein 8.3 H (6.4-8.2) gm/dl Albumin 4.7 (3.4-5.0) gm/dl Globulin 3.6 (2.5-4.0) gm/dl Albumin/Globulin Ratio 1.3 (0.9-2) Lipase 63 L (73-393) U/L Urine Color Urine Appearance (Clear) Urine pH (4.5-7.5) POC Urine pH 5 (4.5-7.5) Ur Specific [place] (1.000-1.030) Urine Protein (Negative) POC Urine Protein Negative (Negative) Urine Glucose (UA) (Negative) POC Ur Glucose (UA) Normal (Normal) Urine Ketones (Negative) POC Urine Ketones 3+ (Large) H (Negative) Urine Blood (Negative) POC Urine Blood Negative (Negative) Urine Nitrite (Negative) POC Urine Nitrite Negative (Negative) Urine Bilirubin (Negative) POC Urine Bilirubin Negative (Negative) Urine Urobilinogen (Negative) POC Urine Urobilinogen Normal (Normal) Ur Leukocyte Esterase (Negative) POC U Leukocyte Esteras Negative (Negative) Urine WBC (Auto) (0-5) /hpf Urine RBC (Auto) (0-4) /hpf U Hyaline Cast (Auto) (0-5) /lpf U Epithel Cells (Auto) (0-5) /lpf Urine Bacteria (Auto) (Negative) Urine Osmolality (500-800) mOsm/kg POC Ur Test (NEG) Salicylates (2.8-20) mg/dl Urine Opiates Screen (Neg) Ur Methadone, Qual (Neg) Acetaminophen (10-30) ug/ml Urine Barbiturates (Neg) Ur Phencyclidine (PCP) (Neg) U Amphetamin/Meth Scrn (Neg) MDMA (Ecstasy) Screen (Neg) U Benzodiazepines Scrn (Neg) Ur Cocaine Metabolite (Neg) U Marijuana (THC) Screen (Neg) Ethyl Alcohol mg/dL (0-3) mg/dl 09/24/18 09/24/18 09/24/18 Range/Units 16:21 16:21 16:34 WBC (4.8-10.8) K/uL RBC (4.2-5.4) M/uL Hgb (12.0-16.0) g/dL Hct (37-47) % MCV (80-100) fL MCH (25-34) pg MCHC (32-36) g/dL RDW Std Deviation (36.4-46.3) fL RDW Coeff of Nayana (11.5-14.5) % Plt Count (130-400) K/uL MPV (7.4-10.4) fL Immature Gran % (Auto) % Neut % (Auto) % Lymph % (Auto) % [place] % (Auto) % Eos % (Auto) % Baso % (Auto) % Immature Gran # (Auto) (0.00-0.02) K/uL Neut # (Auto) (1.4-6.5) K/uL Lymph # (Auto) (1.2-3.4) K/uL [place] # (Auto) (0.11-0.59) K/uL Eos # (Auto) (0-0.5) K/uL Baso # (Auto) (0-0.2) K/uL VBG pH (7.36-7.41) VBG pCO2 (38-50) mmHg VBG pO2 mmHg VBG HCO3 mmol/L VBG O2 Saturation % VBG Base Excess mEq/L Barometric Pressure mm/Hg Sodium (136-145) mmol/L Potassium (3.5-5.1) mmol/L Chloride (98-107) mmol/L Carbon Dioxide (21-32) mmol/L Anion Gap (3-11) BUN (7-18) mg/dl Creatinine (0.6-1.2) mg/dl Est Cr Clr Drug Dosing ml/min Est GFR ( Amer) Est GFR (Non-Af Amer) BUN/Creatinine Ratio (10-20) Glucose (70-99) mg/dl POC Glucose (70-99) Osmolality (280-300) mOsm/kg POC Lactic Acid Cesar (0.90-1.70) mmol/L Calcium (8.5-10.1) mg/dl Total Bilirubin (0.2-1) mg/dl AST (15-37) U/L ALT (12-78) U/L Alkaline Phosphatase (45-117) U/L Total Protein (6.4-8.2) gm/dl Albumin (3.4-5.0) gm/dl Globulin (2.5-4.0) gm/dl Albumin/Globulin Ratio (0.9-2) Lipase (73-393) U/L Urine Color Yellow Urine Appearance Clear (Clear) Urine pH 5.0 (4.5-7.5) POC Urine pH (4.5-7.5) Ur Specific [place] 1.023 (1.000-1.030) Urine Protein 1+ H (Negative) POC Urine Protein (Negative) Urine Glucose (UA) Negative (Negative) POC Ur Glucose (UA) (Normal) Urine Ketones 4+ H (Negative) POC Urine Ketones (Negative) Urine Blood Trace H (Negative) POC Urine Blood (Negative) Urine Nitrite Negative (Negative) POC Urine Nitrite (Negative) Urine Bilirubin Negative (Negative) POC Urine Bilirubin (Negative) Urine Urobilinogen Negative (Negative) POC Urine Urobilinogen (Normal) Ur Leukocyte Esterase Negative (Negative) POC U Leukocyte Esteras (Negative) Urine WBC (Auto) 1-5 (0-5) /hpf Urine RBC (Auto) 0-4 (0-4) /hpf U Hyaline Cast (Auto) 1-5 (0-5) /lpf U Epithel Cells (Auto) >30 H (0-5) /lpf Urine Bacteria (Auto) Negative (Negative) Urine Osmolality 753 (500-800) mOsm/kg POC Ur Test NEG (NEG) Salicylates (2.8-20) mg/dl Urine Opiates Screen (Neg) Ur Methadone, Qual (Neg) Acetaminophen (10-30) ug/ml Urine Barbiturates (Neg) Ur Phencyclidine (PCP) (Neg) U Amphetamin/Meth Scrn (Neg) MDMA (Ecstasy) Screen (Neg) U Benzodiazepines Scrn (Neg) Ur Cocaine Metabolite (Neg) U Marijuana (THC) Screen (Neg) Ethyl Alcohol mg/dL (0-3) mg/dl 09/24/18 09/24/18 09/24/18 Range/Units 16:34 17:23 17:23 WBC (4.8-10.8) K/uL RBC (4.2-5.4) M/uL Hgb (12.0-16.0) g/dL Hct (37-47) % MCV (80-100) fL MCH (25-34) pg MCHC (32-36) g/dL RDW Std Deviation (36.4-46.3) fL RDW Coeff of Nayana (11.5-14.5) % Plt Count (130-400) K/uL MPV (7.4-10.4) fL Immature Gran % (Auto) % Neut % (Auto) % Lymph % (Auto) % [place] % (Auto) % Eos % (Auto) % Baso % (Auto) % Immature Gran # (Auto) (0.00-0.02) K/uL Neut # (Auto) (1.4-6.5) K/uL Lymph # (Auto) (1.2-3.4) K/uL [place] # (Auto) (0.11-0.59) K/uL Eos # (Auto) (0-0.5) K/uL Baso # (Auto) (0-0.2) K/uL VBG pH 7.28 L (7.36-7.41) VBG pCO2 22 L (38-50) mmHg VBG pO2 52 mmHg VBG HCO3 10 mmol/L VBG O2 Saturation 81.1 % VBG Base Excess -14.9 mEq/L Barometric Pressure 726.6 mm/Hg Sodium (136-145) mmol/L Potassium (3.5-5.1) mmol/L Chloride (98-107) mmol/L Carbon Dioxide (21-32) mmol/L Anion Gap (3-11) BUN (7-18) mg/dl Creatinine (0.6-1.2) mg/dl Est Cr Clr Drug Dosing ml/min Est GFR ( Amer) Est GFR (Non-Af Amer) BUN/Creatinine Ratio (10-20) Glucose (70-99) mg/dl POC Glucose (70-99) Osmolality (280-300) mOsm/kg POC Lactic Acid Cesar (0.90-1.70) mmol/L Calcium (8.5-10.1) mg/dl Total Bilirubin (0.2-1) mg/dl AST (15-37) U/L ALT (12-78) U/L Alkaline Phosphatase (45-117) U/L Total Protein (6.4-8.2) gm/dl Albumin (3.4-5.0) gm/dl Globulin (2.5-4.0) gm/dl Albumin/Globulin Ratio (0.9-2) Lipase (73-393) U/L Urine Color Urine Appearance (Clear) Urine pH (4.5-7.5) POC Urine pH (4.5-7.5) Ur Specific [place] (1.000-1.030) Urine Protein (Negative) POC Urine Protein (Negative) Urine Glucose (UA) (Negative) POC Ur Glucose (UA) (Normal) Urine Ketones (Negative) POC Urine Ketones (Negative) Urine Blood (Negative) POC Urine Blood (Negative) Urine Nitrite (Negative) POC Urine Nitrite (Negative) Urine Bilirubin (Negative) POC Urine Bilirubin (Negative) Urine Urobilinogen (Negative) POC Urine Urobilinogen (Normal) Ur Leukocyte Esterase (Negative) POC U Leukocyte Esteras (Negative) Urine WBC (Auto) (0-5) /hpf Urine RBC (Auto) (0-4) /hpf U Hyaline Cast (Auto) (0-5) /lpf U Epithel Cells (Auto) (0-5) /lpf Urine Bacteria (Auto) (Negative) Urine Osmolality (500-800) mOsm/kg POC Ur Test (NEG) Salicylates (2.8-20) mg/dl Urine Opiates Screen Neg (Neg) Ur Methadone, Qual Neg (Neg) Acetaminophen (10-30) ug/ml Urine Barbiturates Neg (Neg) Ur Phencyclidine (PCP) Neg (Neg) U Amphetamin/Meth Scrn Neg (Neg) MDMA (Ecstasy) Screen Neg (Neg) U Benzodiazepines Scrn Neg (Neg) Ur Cocaine Metabolite Neg (Neg) U Marijuana (THC) Screen Pos H (Neg) Ethyl Alcohol mg/dL 156.0 H (0-3) mg/dl 09/24/18 09/24/18 09/24/18 Range/Units 17:50 18:13 18:45 WBC (4.8-10.8) K/uL RBC (4.2-5.4) M/uL Hgb (12.0-16.0) g/dL Hct (37-47) % MCV (80-100) fL MCH (25-34) pg MCHC (32-36) g/dL RDW Std Deviation (36.4-46.3) fL RDW Coeff of Nayana (11.5-14.5) % Plt Count (130-400) K/uL MPV (7.4-10.4) fL Immature Gran % (Auto) % Neut % (Auto) % Lymph % (Auto) % [place] % (Auto) % Eos % (Auto) % Baso % (Auto) % Immature Gran # (Auto) (0.00-0.02) K/uL Neut # (Auto) (1.4-6.5) K/uL Lymph # (Auto) (1.2-3.4) K/uL [place] # (Auto) (0.11-0.59) K/uL Eos # (Auto) (0-0.5) K/uL Baso # (Auto) (0-0.2) K/uL VBG pH (7.36-7.41) VBG pCO2 (38-50) mmHg VBG pO2 mmHg VBG HCO3 mmol/L VBG O2 Saturation % VBG Base Excess mEq/L Barometric Pressure mm/Hg Sodium (136-145) mmol/L Potassium (3.5-5.1) mmol/L Chloride (98-107) mmol/L Carbon Dioxide (21-32) mmol/L Anion Gap (3-11) BUN (7-18) mg/dl Creatinine (0.6-1.2) mg/dl Est Cr Clr Drug Dosing ml/min Est GFR ( Amer) Est GFR (Non-Af Amer) BUN/Creatinine Ratio (10-20) Glucose (70-99) mg/dl POC Glucose (70-99) Osmolality 320 H (280-300) mOsm/kg POC Lactic Acid Cesar 4.75 H (0.90-1.70) mmol/L Calcium (8.5-10.1) mg/dl Total Bilirubin (0.2-1) mg/dl AST (15-37) U/L ALT (12-78) U/L Alkaline Phosphatase (45-117) U/L Total Protein (6.4-8.2) gm/dl Albumin (3.4-5.0) gm/dl Globulin (2.5-4.0) gm/dl Albumin/Globulin Ratio (0.9-2) Lipase (73-393) U/L Urine Color Urine Appearance (Clear) Urine pH (4.5-7.5) POC Urine pH (4.5-7.5) Ur Specific [place] (1.000-1.030) Urine Protein (Negative) POC Urine Protein (Negative) Urine Glucose (UA) (Negative) POC Ur Glucose (UA) (Normal) Urine Ketones (Negative) POC Urine Ketones (Negative) Urine Blood (Negative) POC Urine Blood (Negative) Urine Nitrite (Negative) POC Urine Nitrite (Negative) Urine Bilirubin (Negative) POC Urine Bilirubin (Negative) Urine Urobilinogen (Negative) POC Urine Urobilinogen (Normal) Ur Leukocyte Esterase (Negative) POC U Leukocyte Esteras (Negative) Urine WBC (Auto) (0-5) /hpf Urine RBC (Auto) (0-4) /hpf U Hyaline Cast (Auto) (0-5) /lpf U Epithel Cells (Auto) (0-5) /lpf Urine Bacteria (Auto) (Negative) Urine Osmolality (500-800) mOsm/kg POC Ur Test (NEG) Salicylates < 1.7 L (2.8-20) mg/dl Urine Opiates Screen (Neg) Ur Methadone, Qual (Neg) Acetaminophen < 2 L (10-30) ug/ml Urine Barbiturates (Neg) Ur Phencyclidine (PCP) (Neg) U Amphetamin/Meth Scrn (Neg) MDMA (Ecstasy) Screen (Neg) U Benzodiazepines Scrn (Neg) Ur Cocaine Metabolite (Neg) U Marijuana (THC) Screen (Neg) Ethyl Alcohol mg/dL (0-3) mg/dl 09/24/18 09/24/18 Range/Units 19:46 20:09 WBC (4.8-10.8) K/uL RBC (4.2-5.4) M/uL Hgb (12.0-16.0) g/dL Hct (37-47) % MCV (80-100) fL MCH (25-34) pg MCHC (32-36) g/dL RDW Std Deviation (36.4-46.3) fL RDW Coeff of Nayana (11.5-14.5) % Plt Count (130-400) K/uL MPV (7.4-10.4) fL Immature Gran % (Auto) % Neut % (Auto) % Lymph % (Auto) % [place] % (Auto) % Eos % (Auto) % Baso % (Auto) % Immature Gran # (Auto) (0.00-0.02) K/uL Neut # (Auto) (1.4-6.5) K/uL Lymph # (Auto) (1.2-3.4) K/uL [place] # (Auto) (0.11-0.59) K/uL Eos # (Auto) (0-0.5) K/uL Baso # (Auto) (0-0.2) K/uL VBG pH (7.36-7.41) VBG pCO2 (38-50) mmHg VBG pO2 mmHg VBG HCO3 mmol/L VBG O2 Saturation % VBG Base Excess mEq/L Barometric Pressure mm/Hg Sodium (136-145) mmol/L Potassium (3.5-5.1) mmol/L Chloride (98-107) mmol/L Carbon Dioxide (21-32) mmol/L Anion Gap (3-11) BUN (7-18) mg/dl Creatinine (0.6-1.2) mg/dl Est Cr Clr Drug Dosing ml/min Est GFR ( Amer) Est GFR (Non-Af Amer) BUN/Creatinine Ratio (10-20) Glucose (70-99) mg/dl POC Glucose 49 L* 127 H (70-99) Osmolality (280-300) mOsm/kg POC Lactic Acid Cesar (0.90-1.70) mmol/L Calcium (8.5-10.1) mg/dl Total Bilirubin (0.2-1) mg/dl AST (15-37) U/L ALT (12-78) U/L Alkaline Phosphatase (45-117) U/L Total Protein (6.4-8.2) gm/dl Albumin (3.4-5.0) gm/dl Globulin (2.5-4.0) gm/dl Albumin/Globulin Ratio (0.9-2) Lipase (73-393) U/L Urine Color Urine Appearance (Clear) Urine pH (4.5-7.5) POC Urine pH (4.5-7.5) Ur Specific [place] (1.000-1.030) Urine Protein (Negative) POC Urine Protein (Negative) Urine Glucose (UA) (Negative) POC Ur Glucose (UA) (Normal) Urine Ketones (Negative) POC Urine Ketones (Negative) Urine Blood (Negative) POC Urine Blood (Negative) Urine Nitrite (Negative) POC Urine Nitrite (Negative) Urine Bilirubin (Negative) POC Urine Bilirubin (Negative) Urine Urobilinogen (Negative) POC Urine Urobilinogen (Normal) Ur Leukocyte Esterase (Negative) POC U Leukocyte Esteras (Negative) Urine WBC (Auto) (0-5) /hpf Urine RBC (Auto) (0-4) /hpf U Hyaline Cast (Auto) (0-5) /lpf U Epithel Cells (Auto) (0-5) /lpf Urine Bacteria (Auto) (Negative) Urine Osmolality (500-800) mOsm/kg POC Ur Test (NEG) Salicylates (2.8-20) mg/dl Urine Opiates Screen (Neg) Ur Methadone, Qual (Neg) Acetaminophen (10-30) ug/ml Urine Barbiturates (Neg) Ur Phencyclidine (PCP) (Neg) U Amphetamin/Meth Scrn (Neg) MDMA (Ecstasy) Screen (Neg) U Benzodiazepines Scrn (Neg) Ur Cocaine Metabolite (Neg) U Marijuana (THC) Screen (Neg) Ethyl Alcohol mg/dL (0-3) mg/dl Imaging Data Radiologist's Impression: Radiology results as stated below per my review and the radiologist's interpretation: CT abd pelvis IV con only CLINICAL HISTORY: Severe abdominal pain and vomiting COMPARISON STUDY: July 2017 TECHNIQUE: The patient was scanned in a dynamic helical fashion during intravenous administration of 91 cc of Optiray 320. A dose lowering technique was utilized adhering to the principles of ALARA. CT DOSE: 267.04 mGy.cm FINDINGS: Lower chest: The heart is normal in size and configuration, without pericardial effusion. The lung bases and pleural spaces are clear. Liver: There is severe hepatic steatosis. No focal hepatic masses are visualized. Gallbladder: Borderline distended. No wall thickening. No pericholecystic fluid. No calculi identified. Spleen: Normal in size and attenuation. Pancreas: No peripancreatic masses are visualized. There is been interval resolution of the previously identified peripancreatic fluid and peripancreatic edema. Adrenal glands: Unremarkable. Kidneys: There is symmetric renal cortical enhancement. The kidneys are normal in size without hydronephrosis. Bowel: There are no transition zones indicate bowel obstruction. There is no acute diverticulitis. There is a 25 mm cystic lesion within the central pelvis. It is unclear whether this is extrinsic or extrinsic to bowel. This was not visualized the prior study. This appears separate from the ovaries. There is no evidence of acute appendicitis Peritoneum: There is no intraperitoneal free air or abdominal ascites. Vasculature: The abdominal aorta is normal in course and caliber. Adenopathy: None. Pelvic viscera: The bladder, and pelvic viscera are unremarkable. Skeletal structures: No destructive osseous lesions are seen. IMPRESSION: 1. Hepatic steatosis 2. No evidence of bowel obstruction. No evidence of free air 3. No evidence of acute appendicitis. No evidence of acute diverticulitis 4. Interval resolution of the peripancreatic fluid and edema 5. 2.5 cm cystic structure within the central pelvis. Without positive oral contrast, it is not possible to determine whether this is intrinsic or extrinsic to bowel. Electronically signed by: Jaime Sebastian M.D. 09/24/2018 5:54 PM Blood Pressure Blood Pressure Findings: Normal blood pressure MDM Narrative Patient is a 23-year-old female who presents the ER for nausea vomiting and abdominal pain. Labs show a mild leukopenia at 3000. Platelet count is low at 56. Do favor this is secondary to chronic alcoholism as she notes she drinks daily. VBG was obtained following a BMP which showed a CO2 of 9. pH was 7.28 with a CO2 of 22 and bicarb of 10. Of note she was hyperventilating. No significant transaminitis. Lipase was normal. UA did have ketones without infection. was negative. Lactate was 4.7. Serum osmole gap appears less than 10. Do not favor this is toxic alcohol. Patient was given 3 L IV fluids 2 of which were lactated Ringer's. Patient was monitored closely. She is given IV Zofran and IV Phenergan. [place] able to explain in the low CO2 at this time and consequently patient will be need to be monitored closely while in the ER in the hospital. She is updated bedside and admitted to the hospital for further further work-up. CT abdomen pelvis shows no acute pathology as well. Patient was also given IV thiamine IV folate multivitamin. Impression & Plan Metabolic acidosis, Alcohol intoxication Discharge Plan Visit Data *Final* Discharge Date/Time: 09/24/18 19:31 Chief Complaint: Flu Like Symptoms Stated Complaint: PAIN,NAUSEA,VOMITING ED Provider: Tony Alonso Discharge Problem: Metabolic acidosis, Alcohol intoxication Patient Disposition: Admitted As Inpatient Discharge Instructions Interventions: ED Discharge Assessment Last Done: 09/24/18 19:31 Discharge Problem: Alcohol intoxication Qualifiers: Complication of substance-induced condition: uncomplicated Qualified Code(s): F10.920 - Alcohol use, unspecified with intoxication, uncomplicated The scribe's documentation has been prepared under my direction and personally reviewed by me in its entirety. I confirm that the note above accurately reflects all work, treatment, procedures, and medical decision making performed by me.
[2018-09-24] MEDS: D5W NORMOSOL-R 1,000 ML IV SCH (20:44)
[2018-09-24] MEDS: PROMETHAZINE HCL 12.5 MG in SODIUM CHLORIDE 0.9% 50 ML IV PRN (21:04)
[2018-09-25] MEDS: MoRPHine SULFATE 4 MG/ML 1 ML CARP\\VIAL IV PRN ×6 (00:12→20:25)
[2018-09-25] MEDS: MULTIVITAMIN TAB PO SCH ×2 (00:26→08:13)
[2018-09-25] MEDS: LORazepam 1 MG/2 ML VIAL IV PRN ×2 (00:27→14:31)
[2018-09-25 04:29] LABS: Hematocrit (blood only) 33.5 % (37-47); Hemoglobin 11.5 g/dL (12.0-16.0); Mean Corpuscular Hemoglobin 32.5 pg (25-34); Mean Corpuscular Hgb Conc 34.3 g/dL (32-36); Mean Corpuscular Volume 94.6 fL (80-100); RDW Coefficient of Variation 16.8 % (11.5-14.5); RDW Standard Deviation 58.7 fL (36.4-46.3); Red Blood Count 3.54 M/uL (4.2-5.4); White Blood Count 4.48 K/uL (4.8-10.8)
[2018-09-25 04:31] LABS: Mean Platelet Volume 8.6 fL (7.4-10.4); Platelet Count 52 K/uL (130-400)
[2018-09-25 04:46] LABS: BUN Creatinine Ratio 4.5 (10-20); Calcium 8.2 mg/dl (8.5-10.1); Est GFR (African American) 137.2; Est GFR (Non-African American) 118.4; Potassium 3.8 mmol/L (3.5-5.1)
[2018-09-25 05:13] LABS: Basophils # (auto) 0.01 K/uL (0-0.2); Basophils % (auto) 0.2 %; Eosinophils # (auto) 0.05 K/uL (0-0.5); Eosinophils % (auto) 1.1 %; Immature Granulocytes # (auto) 0.02 K/uL (0.00-0.02); Immature Granulocytes % (auto) 0.4 %; Lymphocytes # (auto) 1.55 K/uL (1.2-3.4); Lymphocytes % (auto) 34.6 %; Monocytes # (auto) 0.71 K/uL (0.11-0.59); Monocytes % (auto) 15.8 %; Neutrophils # (auto) 2.14 K/uL (1.4-6.5); Neutrophils % (auto) 47.9 %; Reticulocyte % 1.7 % (0.5-2.0); Reticulocytes # 0.06 10^6/uL (0.02-0.10)
[2018-09-25] MEDS ORDERED: DEXTROSE 50% 50 ML SYRINGE IV PRN (05:45)
[2018-09-25] MEDS ORDERED: CARBOHYDRATES FOR HYPOGLYCEMIA PO PRN (05:45)
[2018-09-25] MEDS ORDERED: GLUCOSE 10 TABS/TUBE PO PRN (05:45)
[2018-09-25] MEDS ORDERED: GLUCOSE 40% GEL 15 GM TUBE PO PRN (05:45)
[2018-09-25] MEDS ORDERED: GLUCAGON FOR INJ 1 MG VIAL SQ PRN (05:45)
[2018-09-25] MEDS: LORazepam 0.5 MG/1 ML VIAL IV PRN ×2 (05:50→22:49)
[2018-09-25] MEDS: GABAPENTIN 600 MG TAB PO SCH ×3 (06:28→22:40)
[2018-09-25] MEDS: PANTOprazole 40 MG in SYRINGE 0 ML IV SCH ×2 (08:33→20:26)
[2018-09-25] MEDS: D5W NORMOSOL-R 1,000 ML IV SCH ×2 (08:39→20:26)
--- NOTE | 2018-09-25 09:07 | Hospitalist Progress Note ---
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 consulted plan for Sucralfate possible EGD when alcohol intoxication/withdrawal resolves Lactic acidosis Bicarb of 9, pH 7.28, lactate level 4 given Normosol, NSS HCO3 improved to 21 Anion gap closed Alcohol intoxication, history of alcoholism Alcohol level elevated on admission reports anxiety, sweating overnight continue gabapentin protocol for alcohol withdrawal protocol PRN Ativan patient states she had tried Alcohol Rehab in the past, but did not like it Depression admits to depression, anxiety leading to alcoholism will consult Psychiatry Thrombocytopenia Chronic, likely secondary to alcoholism No signs of bleeding Monitor Disposition pending Discussed case with patient and she is understanding, agreeable, comfortable with plan of care patient seen and examined with DANISH Madison at the bedside Subjective ff up for acidosis, epigastric pain, alcoholic intoxication seen resting in bed, tearful still having epigastric pain denies nausea no bm denies headache, dizziness, chest pain, dyspnea admits to feeling depressed, anxious, leading to drinking denies suicidal ideations no other symptoms Review of Systems Review of Systems: All systems reviewed & are unremarkable except as noted in HPI & below Physical Exam Physical Exam: General- oriented x 3, tearful not in cardiorespiratory distress Eyes- anicteric Neck- no JVD Lungs- clear breath sounds bilaterally, no rales/wheezes Heart- normal rate, regular rhythm; no murmurs Abdomen- normal bowel sounds, nondistended, soft,(+) tenderness- moderate, epigastric region Extremities- no pretibial edema, no calf tenderness Neuro- alert, oriented x 3; no gross focal neurologic deficits Skin- warm & dry Results & Data Vital Signs (Past 12 Hours) Vital Signs Temp Pulse Resp BP Pulse Ox 09/25/18 06:00 95 H 23 111/73 96 09/25/18 05:00 36.8 C 110 H 15 120/76 96 09/25/18 04:00 101 H 23 104/68 97 09/25/18 03:00 114 H 21 109/69 96 09/25/18 02:00 100 H 23 104/65 96 09/25/18 01:00 107 H 23 105/65 95 09/25/18 00:00 110 H 20 112/70 97 09/24/18 23:00 103 H 23 109/64 97 09/24/18 22:00 115 H 24 117/68
[2018-09-25] MEDS: SUCRALFATE 1 GM/10 ML UDC PO SCH ×4 (09:46→20:26)
--- NOTE | 2018-09-25 11:04 | Gastrointestinal Consultation ---
Date of Consultation September 25, 2018 Assessment & Plan (1) Alcohol intoxication: (2) Epigastric pain: Pt is a 23 y/o female w ongoing ETOH abuse, marijuana uses, who presented w epigastric abd pain, n/v. No hematemesis, coffee ground emesis, melena. Does have mild LFT elevation but normal Lipase. CT abd/pelvis w signs of hepatic steatosis, but no acute obstructive or inflammatory changes otherwise. - CL diet - PPI IV BID - Add Carafate 1g susp QID, GI cocktail TID prn GI upset - Trend LFTs and Lipase to watch for developing ETOH hepatitis/pancreatitis - Defer EGD at this time given pt may be withdrawing, no ongoing n/v, no signs of GI bleeding and epigastric pain is chronic, not increased from prior per pt. - Avoid narcotics - DT protocol - Strongly advised ETOH/marijuana cessation. Consider psych consult for depression/anxiety, ongoing substance abuses. Supervising Physician Co-Signing Physician Notes Attending attestation I have seen, examined this patient, and agree with the findings and above by our mid-level provider DANISH Rice. -Admitted with alcohol intoxication, metabolic derangements, with abdominal pain without focal findings on exam, imaging or laboratory findings. Pain apparently is improved has no nausea, is eating liquid lunch while were interviewing. -Likely alcohol gastritis -Continue with supportive care -Continue to treat alcohol withdrawal -Call with questions History of Present Illness Reason for Consultation: Epigastric pain, vomiting Requesting Physician: Rex Garsia MD Attending Physician: Dr. Anton Reid. History of Present Illness Pt is a 23-year-old female with history of alcoholism, alcoholic pancreatitis, gastritis, tobacco abuses presented to ED yesterday with persistent epigastric pain and vomiting x 2 days. On eval she was found to be in lactic acidosis, placed in ICU for close monitoring also for DTs. She denies any associated fever, chills, CP, SOB. Reports epigastric pain had been ongoing and not more than usual. Overnight no n/v, denies hx of hematemesis, coffee ground emesis or melena. Labs w/o leukocytosis, H/H showed mild anemia 11/33, Plt low 52. BUN/Cr normal. LFTs mildly up: Tbili 0.5, AST 60, ALT 37, AP 73. Lipase 184. Utox showed low salicylates and Acetaminophen. + marijuana, ETOH 156. CT abd/pelvis w IV contrast showed signs of hepatic steatosis, no other acute processes such as bowel obstruction, appendicitis, diverticulitis or free air. + interval resolution of peripancreatic fluid and edema. ? 2.5cm cystic structure in central pelvis but unclear if it's intrinsic or extrinsic to bowel. Allergies Allergy/AdvReac Type Severity Reaction Status Date / Time amairani Allergy Mild GUMS SWELL Verified 09/24/18 16:46 Home Medications Home Medications Medication Instructions Recorded Confirmed Type cholecalciferol (vitamin D3) 0 unit PO DAILY 09/24/18 09/24/18 History [Vitamin D3] melatonin 5 mg PO HS 09/24/18 09/24/18 History multivitamin 1 tab PO QAM 09/24/18 09/24/18 History omega 1-emo-yym-fish oil [Fish Oil] 1 cap PO DAILY 09/24/18 09/24/18 History vitamin B complex 1 tab PO DAILY 09/24/18 09/24/18 History vitamin E 0 unit PO DAILY 09/24/18 09/24/18 History Patient History Medical History Alcohol withdrawal Pancreatitis Social History Preferred Language: Bulgarian Communication Ability: Effective Assisted Living Assistant Required: No Beliefs That Will Affect Care: None Current Living Situation: Significant Other Other Information That Helps Us Care for You: No Feels Safe at Home: Yes Safety Concerns: Feels Safe At This Time Smoking Status: Current every day smoker Tobacco Type: cigarettes Cigarettes Per Day: 7-10 Do You Dip or Chew Tobacco: No Second Hand Exposure: Yes Tobacco Cessation Education Requested by Patient: No Hx Alcohol Use: No Hx Substance Use: Yes substance use type: marijuana Last Used Substance: Days (ago) Review of Systems Review of Systems: All systems reviewed & are unremarkable except as noted in HPI & below Psychiatric: + depression, + anxiety and + substance abuse; no suicidal ideation and no homicidal ideation Physical Exam Constitutional: WD/WN, vitals as above + disheveled, cooperative and + in distress (c/o abd pain ) very teary Eyes: PERRL, conjunctivae normal, anicteric sclerae ENMT: external ear and nose normal, oropharynx normal Respiratory: normal respiratory effort, lungs clear to auscultation Cardiovascular: RRR, no murmur, no edema Gastrointestinal (Abdomen): Inspection/Auscultation: normal bowel sounds Percussion/Palpation: + abdomen tender (epigastric ) and abdomen soft Skin: no rashes, warm and dry no jaundice Neurologic: Motor/Sensory: no asterixis Psychiatric: Orientation: alert and oriented x 3 crying, tremulous Lymphatic: no lymphedema Results & Data Vital Signs (Past 12 Hours) Vital Signs Temp Pulse Resp BP Pulse Ox 09/25/18 09:50 94 H 16 09/25/18 09:40 96 H 20 96 09/25/18 09:30 115 H 19 98 09/25/18 09:20 99 H 22 96 09/25/18 09:10 99 H 24 97 09/25/18 09:01 96 H 25 H 96 09/25/18 09:00 99 H 22 128/81 95 09/25/18 08:50 120 H 15 99 09/25/18 08:40 110 H 14 98 09/25/18 08:30 106 H 21 99 09/25/18 08:20 98 H 21 97 09/25/18 08:10 97 H 26 H 96 09/25/18 08:08 117 H 18 123/88 97 09/25/18 08:01 107 H 21 97 09/25/18 08:00 36.7 C 106 H 20 126/87 95 09/25/18 07:50 101 H 19 97 09/25/18 07:40 109 H 39 H 97 09/25/18 07:30 108 H 25 H 96 09/25/18 07:20 107 H 32 H 98 09/25/18 07:10 122 H 24 97 09/25/18 07:00 97 H 16 111/80 97 09/25/18 06:50 97 H 19 97 09/25/18 06:40 103 H 21 97 09/25/18 06:30 102 H 17 97 09/25/18 06:20 98 H 18 97 09/25/18 06:10 101 H 20 97 09/25/18 06:00 95 H 23 111/73 96 09/25/18 05:00 36.8 C 110 H 15 120/76 96 09/25/18 04:00 101 H 23 104/68 97 09/25/18 03:00 114 H 21 109/69 96 09/25/18 02:00 100 H 23 104/65 96 09/25/18 01:00 107 H 23 105/65 95 09/25/18 00:00 110 H 20 112/70 97 09/24/18 23:00 103 H 23 109/64 97 (1) Alcohol intoxication Complication of substance-induced condition: uncomplicated Qualified Code(s): F10.920 - Alcohol use, unspecified with intoxication, uncomplicated
--- NOTE | 2018-09-25 11:19 | Critical Care Progress Note ---
Date of Service September 25, 2018 Assessment & Plan (1) Alcohol intoxication: Impression: 1. Alcohol induced brief pancreatitis. 2. Abdominal pain secondary to above. 3. Alcoholism on a daily basis, the patient has 6 shots every day. 4. Resolved metabolic acidosis. 5. Pancytopenia, thrombocytopenia also related to alcoholism. 6. Hepatic steatosis. Plan: 1. Appreciate GI input. 2. Continue with alcohol withdrawal protocol. 3. Start clear liquid diet. 4. Continue pain control. 5. PPI. 6. Continue thiamine. 7. Discussed with the staff on rounds and details. 8. Disposition plan to regular floor. Thank you, critical care time spent with the patient was 35 minutes. Subjective The patient was admitted to the hospital with diagnosis of acute pancreatitis. Apparently patient has history of recurrent pancreatitis in the past according to her. She is active drinker on a daily basis. She has not been in withdrawal in the past according to her. Currently she complain of abdominal pain only and nausea. Was able to tolerate ice chips. Review of Systems Review of Systems: Review of system including 14 systems otherwise were unr emarkable. She does have melena on occasion but not in the past 24 hours. She denies any chest pain, no vomiting reported, no pain in her joints or rash, neurologically otherwise she is unremarkable. Physical Exam Physical Exam: Physical exam revealed young female does not appear to be in any distress, her vital signs are stable, S1-S2 regular rate and rhythm, no JVD, abdomen is soft although she felt discomfort at the periumbilical area, no edema, neurologically she is intact, dry mucosa. Results & Data Vital Signs (Past 12 Hours) Vital Signs Temp Pulse Resp BP Pulse Ox 09/25/18 09:50 94 H 16 09/25/18 09:40 96 H 20 96 09/25/18 09:30 115 H 19 98 09/25/18 09:20 99 H 22 96 09/25/18 09:10 99 H 24 97 09/25/18 09:01 96 H 25 H 96 09/25/18 09:00 99 H 22 128/81 95 09/25/18 08:50 120 H 15 99 09/25/18 08:40 110 H 14 98 09/25/18 08:30 106 H 21 99 09/25/18 08:20 98 H 21 97 09/25/18 08:10 97 H 26 H 96 09/25/18 08:08 117 H 18 123/88 97 09/25/18 08:01 107 H 21 97 09/25/18 08:00 36.7 C 106 H 20 126/87 95 09/25/18 07:50 101 H 19 97 09/25/18 07:40 109 H 39 H 97 09/25/18 07:30 108 H 25 H 96 09/25/18 07:20 107 H 32 H 98 09/25/18 07:10 122 H 24 97 09/25/18 07:00 97 H 16 111/80 97 09/25/18 06:50 97 H 19 97 09/25/18 06:40 103 H 21 97 09/25/18 06:30 102 H 17 97 09/25/18 06:20 98 H 18 97 09/25/18 06:10 101 H 20 97 09/25/18 06:00 95 H 23 111/73 96 09/25/18 05:00 36.8 C 110 H 15 120/76 96 09/25/18 04:00 101 H 23 104/68 97 09/25/18 03:00 114 H 21 109/69 96 09/25/18 02:00 100 H 23 104/65 96 09/25/18 01:00 107 H 23 105/65 95 09/25/18 00:00 110 H 20 112/70 97 Laboratory Results Labs were reviewed which showed pancytopenia, her thrombocytopenia appears to be chronic, initially the patient had metabolic acidosis, thought to be related to recent alcohol ingestion. Electrolyte imbalance noted with hypomagnesemia, alcohol level was 156. Diagnostic Findings Abdominal CT showed hepatic steatosis, pancreatic edema which has been resolving. (1) Alcohol intoxication Complication of substance-induced condition: uncomplicated Qualified Code(s): F10.920 - Alcohol use, unspecified with intoxication, uncomplicated
[2018-09-26] MEDS: MoRPHine SULFATE 4 MG/ML 1 ML CARP\\VIAL IV PRN ×4 (00:27→13:14)
[2018-09-26] MEDS: LORazepam 0.5 MG/1 ML VIAL IV PRN ×3 (03:10→11:25)
[2018-09-26 05:32] LABS: Hematocrit (blood only) 36.1 % (37-47); Hemoglobin 12.6 g/dL (12.0-16.0); Mean Corpuscular Hemoglobin 32.6 pg (25-34); Mean Corpuscular Hgb Conc 34.9 g/dL (32-36); Mean Corpuscular Volume 93.5 fL (80-100); RDW Coefficient of Variation 16.5 % (11.5-14.5); Red Blood Count 3.86 M/uL (4.2-5.4); White Blood Count 2.96 K/uL (4.8-10.8)
[2018-09-26 05:53] LABS: Mean Platelet Volume 9.2 fL (7.4-10.4); Platelet Count 53 K/uL (130-400)
[2018-09-26 05:56] LABS: Basophils # (auto) 0.02 K/uL (0-0.2); Basophils % (auto) 0.7 %; Eosinophils # (auto) 0.08 K/uL (0-0.5); Eosinophils % (auto) 2.7 %; Lymphocytes # (auto) 1.14 K/uL (1.2-3.4); Lymphocytes % (auto) 38.5 %; Monocytes # (auto) 0.54 K/uL (0.11-0.59); Monocytes % (auto) 18.2 %; Neutrophils # (auto) 1.18 K/uL (1.4-6.5); Neutrophils % (auto) 39.9 %
[2018-09-26 06:11] LABS: Alanine Aminotransferase 27 U/L (12-78); Albumin Level 3.7 gm/dl (3.4-5.0); Alkaline Phosphatase 60 U/L (45-117); Aspartate Aminotransferase 31 U/L (15-37); BUN Creatinine Ratio 2.2 (10-20); Bilirubin Direct 0.3 mg/dl (0-0.2); Blood Urea Nitrogen 1 mg/dl (7-18); Calcium 8.6 mg/dl (8.5-10.1); Carbon Dioxide 29 mmol/L (21-32); Chloride 101 mmol/L (98-107); Est GFR (African American) > 150.0; Est GFR (Non-African American) 131.2; Glucose 97 mg/dl (70-99); Potassium 3.1 mmol/L (3.5-5.1); Sodium 136 mmol/L (136-145); Total Protein 6.9 gm/dl (6.4-8.2)
[2018-09-26] MEDS: GABAPENTIN 600 MG TAB PO SCH ×3 (06:27→23:10)
[2018-09-26] MEDS: MULTIVITAMIN TAB PO SCH (07:39)
[2018-09-26] MEDS: SUCRALFATE 1 GM/10 ML UDC PO SCH ×4 (07:40→20:16)
[2018-09-26] MEDS: THIAMINE HCL 100 MG in SYRINGE 9 ML IV SCH (07:43)
[2018-09-26] MEDS: PANTOprazole 40 MG in SYRINGE 0 ML IV SCH ×2 (07:44→20:14)
--- NOTE | 2018-09-26 07:49 | Psychiatric Consultation ---
Date of Consultation September 26, 2018 Impression / Recommendations Impression 23-year-old female admitted medically for abdominal pain, back pain, nausea, and vomiting - concern present for developing ETOH pancreatitis/hepatitis versus other condition. Primary medical team is concerned patient's case appears to be alcohol withdrawal. Patient is seen on psychiatric consult service to assess anxiety and depression. Patient reports significant alcohol use for the past 4 years with only a 1 month period of sobriety. This complicates a diagnosis of a formal anxiety or depressive disorder versus substance-induced mood disorder. Reported symptoms are nonspecific, and with statements provided do not meet criteria for a formal diagnosis at this timebut are certainly worth continuing to monitor. Given some anxiety may be related to her current hospitalization, could consider the use of hydroxyzine 25 mg every 4 hours as needed for acute anxiety while hospitalized. If helpful, could continue on discharge; however, the patient does not currently have health insurance and may have difficulty continuing with the medication without appropriate supervision. Would not suggest initiation of SSRI/SNRI at this time given potential to lower seizure threshold and that they are not advised to be used in combination with alcohol. This risk was explained to the patient, who was informed we would provide her with resources for outpatient treatment which would include contact information for [facility], as well as offices that accept MA if/when approved. Primary concern at this time is her alcohol abuse, and options for inpatient or outpatient drug and alcohol rehabilitation/counseling should be explored by case management. Would suggest [facility] to [facility] for assistance with inpatient rehabilitation placement or referrals for outpatient D&A counseling. Patient is willing to consider these options; however, is not sure that she would be agreeable to immediate discharge to a rehab facility. Patient is denying hopelessness, self-harm urges, and suicidality. She does not meet criteria for inpatient psychiatric admission, and we will do our best to provide patient with resources she can follow-up with on an outpatient basis. Dr. Rochlele Ponce was directly involved in review and discussion of the patient's case and participated in medical decision making regarding treatment recommendations. CPT Code Initial Consultation: 26707 Psych History Identifying Data 23-year-old female admitted medically for acute back and abdominal pain in addition to severe nausea and vomiting. Patient is being treated medically for likely alcohol withdrawal and possible alcoholic pancreatitis/hepatitis. Psychiatric consultation was requested to evaluate for depression. Patient has a history of daily alcohol and marijuana use. Information is gathered from hospital documentation and the patient herself, the combination of which is considered to be reliable. Chief Complaint "Yeah we can talk, I was just about to eat lunch." History of Present Illness Zahida Davidson is a 23-year-old female admitted medically for acute back and abdominal pain in addition to severe nausea and vomiting. Concern at this time is for the possibility of alcoholic hepatitis/pancreatitis. It is also quite possible that the patient is an active alcohol withdrawal. Psychiatric consultation was requested to evaluate patient for anxiety or depression. There is a history of heavy alcohol abuse reported. Case was reviewed with psychiatric liaison nurse. At time of the assessment patient is cooperative but does appear to be in some moderate distress. When asked how she was feeling patient states, "itchy, shaky, and in a lot of pain. I am sweating real bad, but I am so cold." Patient shares with this provider that she has been drinking heavily for the past 4 years. Typically the patient drinks between 6 shots and have a handle of vodka on a daily basis. Patient states that she has been to rehab once in the past for 1 week. She was able to maintain sobriety for a month and 3 days, and then returned to alcohol use. She also reports smoking marijuana daily which she finds helpful for anxiety and chronic pain. We discussed patient's anxiety which she describes as "constant." Patient states her anxiety is heightened at this time due to recently moving back to [place] from [place]. Patient states otherwise she has anxiety related to setting up a job and situational/relational stressors. Patient does report a history of panic attacks, stating she has had 5 in her lifetime. During these episodes the patient reports shortness of breath, and "feeling like I am going to ." The patient states that these are often not triggered by anything specific. Patient denies any significant depressive symptoms. She denies hopelessness, worthlessness, self-harm urges, and suicidal ideation. Patient states she has never been hospitalized on an inpatient psychiatric unit, and has never previously attempted to end her life. Patient states she has never had outpatient psychiatric care to address her reported anxiety. We discussed the effect that chronic alcohol use can have on mood and anxiety, the patient was encouraged to consider inpatient drug and alcohol rehabilitation. Patient states she will "consider," but she is uninterested in immediate discharge to a facility once medically cleared. Patient states her focus at this time is starting a job and getting settled. She does not have insurance at this time, but is willing to accept contact information for [facility] as well as psychiatric offices that except medical assistance. Pt denies SI, HI, SIB, A/V hallucinations, paranoia, stacie/hypomania, other symptoms more suggestive of a bipolar presentation, OCD, PTSD, eating disorder, and other specific psychiatric symptoms. Past Psychiatric History Previous Psych History: Denies any formal psychiatric history. Patient states she has not seen a psychiatrist or therapist, and has not been prescribed medications to help with depression or anxiety. Patient denies any history of suicidal thinking, and states she has not been admitted for previous inpatient psychiatric hospitalizations. Outpatient Services: None Previous Psych Admissions: None History of Previous Suicide Attempt: No Past Medication Trials: Denies previous medication trials for anxiety or depression Allergies Allergy/AdvReac Type Severity Reaction Status Date / Time amairani Allergy Mild GUMS SWELL Verified 09/24/18 16:46 Home Medications Home Medications Medication Instructions Recorded Confirmed Type cholecalciferol (vitamin D3) 0 unit PO DAILY 09/24/18 09/24/18 History [Vitamin D3] melatonin 5 mg PO HS 09/24/18 09/24/18 History multivitamin 1 tab PO QAM 09/24/18 09/24/18 History omega 4-rdu-uuf-fish oil [Fish Oil] 1 cap PO DAILY 09/24/18 09/24/18 History vitamin B complex 1 tab PO DAILY 09/24/18 09/24/18 History vitamin E 0 unit PO DAILY 09/24/18 09/24/18 History Family History Patient denies known family history of psychiatric conditions. States mother is addicted to heroin, and father has a history of alcoholism but has been sober for the past 8 months. Patient denies any known history of attempted or completed suicides in family members. Substance Abuse History Patient reports heavy alcohol use for the past 4 years. States she began drink ing beer at the age of 11, drinking heavily since the age of 19. Patient states she generally drinks between 6 shots and half a handle of vodka on a daily basis. Longest period of sobriety reported was 1 month and 3 days, this followed her only stay for inpatient drug and alcohol rehabilitation. Patient states she spent 1 week at [facility] in [place]. Patient reports daily use of marijuana finding it helpful for anxiety and chronic pain. Personal History Living Arrangements: Apartment (With 2 roommates) Childhood: Patient states she was born in [place] and raised by her mother. She has moved frequently since the age of 15 residing in [place], [place], in [place]. 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 Beliefs That Will Affect Care: None Current Living Situation: Significant Other Other Information That Helps Us Care for You: No Feels Safe at Home: Yes Safety Concerns: Feels Safe At This Time Smoking Status: Current every day smoker Tobacco Type: cigarettes Cigarettes Per Day: 7-10 Do You Dip or Chew Tobacco: No Second Hand Exposure: Yes Tobacco Cessation Education Requested by Patient: No Hx Alcohol Use: No Hx Substance Use: Yes substance use type: marijuana Last Used Substance: Days (ago) Physical Exam Psychiatric: Orientation: alert, oriented x 3 and cooperative Apperance: appropriately dressed (In hospital gown) and + disheveled thin-appearing, petite female appearing to be in a moderate amount of discomfort. Short, unkempt, bleached hairmultiple piercings of lips and nose. Level of hydration and hygiene appears to be adequate. Eye Contact: + fair eye contact Motor Behavior: no abnormal motor movements (Observed while laying in bed) Speech: normal rate/rhythm/volume of speech (Brief responses to questions, soft tone) Affect: + tearful affect (At times) and + blunted affect Mood: + anxious mood; no depressed mood "I do not know, constantly anxious." Thought Process: goal directed thought process and clear/coherent thought process Thought Content: reality based without delusions Suicidal Thoughts: denies suicidal thoughts and denies suicidal plan Homicidal Thoughts: denies homicidal thoughts Hallucinations: no auditory hallucinations and no visual hallucinations Cognition: recent memory grossly intact, remote memory grossly intact, attention grossly intact and language grossly intact Estimated Intelligence: consistent with education level Insight: + fair insight (Insight is limited with regards to alcohol abuse) Judgement: + fair judgement (Judgment limited in regards to alcohol abuse) Vital Signs (Past 24 Hours): Last Vital Signs Temp 37.1 C 09/26/18 07:21 Pulse 124 H 09/26/18 07:21 Resp 18 09/26/18 07:21 BP 138/98 09/26/18 07:21 Pulse Ox 98 09/26/18 07:21 Review of Systems Constitutional: reports generalized pain, shaking, diaphoresis, chills Cardiovascular: denied Respiratory: denied Gastrointestinal: reports nausea and abdominal pain Neurological: reports episodes of dizziness Psychiatric: denies symptoms other than stated above Total of at least 10 systems reviewed, pertinent positives as above and in HPI. Results & Data Medications Administered Gabapentin (Neurontin) 600 mg PO Q8H CHUN Stop: 09/26/18 14:01 Last Admin: 09/26/18 06:27 Dose: 600 mg Documented by: [id number] Admin: 09/25/18 22:40 Dose: 600 mg Documented by: [id number] Lorazepam (Ativan) 0.5 mg in 1 mls @ 1 mls/min IV Q4H PRN PRN Reason: anxiety Stop: 10/24/18 18:58 Last Admin: 09/26/18 07:40 Dose: 1 mls/min Documented by: [id number] Admin: 09/26/18 03:10 Dose: 1 mls/min Documented by: [id number] Admin: 09/25/18 22:49 Dose: 1 mls/min Documented by: [id number] Admin: 09/25/18 05:50 Dose: 1 mls/min Documented by: [id number] Lorazepam (Ativan) 1 mg in 2 mls @ 2 mls/min IV ONE PRN; Protocol PRN Reason: EtoH Withdrawal AWSS 6-10 Stop: 10/24/18 18:58 Last Admin: 09/25/18 14:31 Dose: 2 mls/min Documented by: [id number] Admin: 09/25/18 00:27 Dose: 1 mls/min Documented by: [id number] Thiamine HCl 100 mg/ Syringe 10 mls @ 2 mls/hr IV DAILY CHUN Stop: 10/24/18 18:58 Last Admin: 09/26/18 07:43 Dose: 2 mls/hr Documented by: [id number] Admin: 09/24/18 20:06 Dose: 2 mls/hr Documented by: [id number] Admin: 09/24/18 20:04 Dose: Not Given Documented by: [id number] Pantoprazole Sodium 40 mg/ (Syringe) 10 mls @ 5 mls/min IV BID@0900,2100 [facility] Stop: 10/24/18 19:14 Last Admin: 09/26/18 07:44 Dose: 5 mls/min Documented by: [id number] Admin: 09/25/18 20:26 Dose: 5 mls/min Documented by: [id number] Admin: 09/25/18 08:33 Dose: 5 mls/min Documented by: [id number] Admin: 09/24/18 19:20 Dose: 5 mls/min Documented by: [id number] Dextrose/Electrolytes (D5w Normosol-R) 1,000 mls @ 80 mls/hr IV .[id number] CHUN Stop: 10/24/18 20:29 Last Admin: 09/25/18 20:26 Dose: 80 mls/hr Documented by: [id number] Infusion: 09/25/18 20:26 Dose: 80 mls/hr Documented by: [id number] Admin: 09/25/18 08:39 Dose: 80 mls/hr Documented by: [id number] Infusion: 09/25/18 08:39 Dose: 80 mls/hr Documented by: [id number] Admin: 09/24/18 20:44 Dose: 80 mls/hr Documented by: [id number] Promethazine HCl 12.5 mg/ (Sodium Chloride) 50.5 mls @ 202 mls/hr IV Q6H PRN PRN Reason: Nausea And Vomiting Stop: 10/24/18 20:50 Last Infusion: 09/24/18 21:32 Dose: 0 mls/hr Documented by: [id number] Admin: 09/24/18 21:04 Dose: 202 mls/hr Documented by: [id number] Morphine Sulfate (Morphine Sulfate) 3 mg IV Q4H PRN PRN Reason: Pain Stop: 10/08/18 19:02 Last Admin: 09/26/18 04:45 Dose: 3 mg Documented by: [id number] Admin: 09/26/18 00:27 Dose: 3 mg Documented by: [id number] Admin: 09/25/18 20:25 Dose: 3 mg Documented by: [id number] Admin: 09/25/18 16:16 Dose: 3 mg Documented by: [id number] Admin: 09/25/18 12:17 Dose: 3 mg Documented by: [id number] Admin: 09/25/18 09:16 Dose: 4 mg Documented by: [id number] Admin: 09/25/18 04:56 Dose: 3 mg Documented by: [id number] Admin: 09/25/18 00:12 Dose: 3 mg Documented by: [id number] Admin: 09/24/18 20:24 Dose: 3 mg Documented by: [id number] Multivitamins (Multivitamin Tab) 1 tab PO QAM [facility] Stop: 10/24/18 19:14 Last Admin: 09/26/18 07:39 Dose: 1 tab Documented by: [id number] Admin: 09/25/18 08:13 Dose: 1 tab Documented by: [id number] Admin: 09/25/18 00:26 Dose: 1 tab Documented by: [id number] Sucralfate (Carafate) 1 gm PO QID [facility] Stop: 10/25/18 08:59 Last Admin: 09/26/18 07:40 Dose: 1 gm Documented by: [id number] Admin: 09/25/18 20:26 Dose: 1 gm Documented by: [id number] Admin: 09/25/18 16:17 Dose: 1 gm Documented by: [id number] Admin: 09/25/18 12:16 Dose: 1 gm Documented by: [id number] Admin: 09/25/18 09:46 Dose: 1 gm Documented by: [id number]
[2018-09-26] MEDS: D5W NORMOSOL-R 1,000 ML IV SCH (08:38)
[2018-09-26] MEDS ORDERED: POTASSIUM CHLORIDE 20 MEQ TABCR PO STA (08:44)
--- NOTE | 2018-09-26 08:46 | Gastroenterology Progress Note ---
Date of Service September 26, 2018 Assessment & Plan (1) Alcohol intoxication: (2) Epigastric pain: Pt is a 23 y/o female w ongoing ETOH abuse, marijuana uses, who presented w epigastric abd pain, n/v. No hematemesis, coffee ground emesis, melena. Does have mild LFT elevation but normal Lipase. CT abd/pelvis w signs of hepatic steatosis, but no acute obstructive or inflammatory changes otherwise. Epigastric pain is improved, no n/v, no BMs. Tolerating CL diet. - FL diet; advance as tolerated. - PPI IV BID; Carafate 1g susp QID, GI cocktail TID prn GI upset - Trend LFTs and Lipase to watch for developing ETOH hepatitis/pancreatitis -> LFTs normalizing - Defer EGD at this time given pt may be withdrawing, no ongoing n/v, no signs of GI bleeding and epigastric pain is chronic, not increased from prior per pt. - Avoid narcotics - DT protocol - Strongly advised ETOH/marijuana cessation. Psych consulted for depression/anxiety, ongoing substance abuses. - GI to sign off, pls recall as needed. Supervising Physician Co-Signing Physician Notes Attending attestation I have seen, examined this patient, and agree with the findings and above by our mid-level provider DANISH Rice. -Admitted with alcohol intoxication, metabolic derangements, with abdominal pain without focal findings on exam, imaging or laboratory findings. Pain apparently is improved has no nausea, is eating food without issues. Appears to be in acute withdrawal right now. -Likely alcohol gastritis -Continue with supportive care -Continue to treat alcohol withdrawal -Call with questions -Labs have improved, likely needs inpatient rehab -Work-up for thrombocytopenia that is not related to liver given normal spleen size and no evidence of laboratory or imaging or physical findings of cirrhosis. Subjective No acute events overnight. She denies any more n/v, epigastric pain is better. Is passing flatus but no BMs. Tolerated CL, wants to try more solid foods. She is still c/o being anxious. Will meet w psychiatry service again today Review of Systems Review of Systems: All systems reviewed & are unremarkable except as noted in HPI & below Physical Exam Constitutional: WD/WN, vitals as above well groomed, cooperative and comfortable Eyes: PERRL, conjunctivae normal, anicteric sclerae ENMT: external ear and nose normal, oropharynx normal Respiratory: normal respiratory effort, lungs clear to auscultation Cardiovascular: RRR, no murmur, no edema Gastrointestinal (Abdomen): Inspection/Auscultation: normal bowel sounds Percussion/Palpation: + abdomen tender (epigastric ) and abdomen soft Skin: no rashes, warm and dry no jaundice Neurologic: Motor/Sensory: no asterixis tremors on fingers Psychiatric: Orientation: alert and oriented x 3 Lymphatic: no lymphedema Results & Data Vital Signs (Past 12 Hours) Vital Signs Temp Pulse Resp BP Pulse Ox 09/26/18 07:21 37.1 C 124 H 18 138/98 98 09/26/18 03:09 36.7 C 94 H 18 145/102 H 98 09/25/18 23:38 37.0 C 91 H 16 122/81 99 (1) Alcohol intoxication Complication of substance-induced condition: uncomplicated Qualified Code(s): F10.920 - Alcohol use, unspecified with intoxication, uncomplicated
[2018-09-26] MEDS ORDERED: LORazepam 1 MG TAB PO PRN (14:38)
[2018-09-26] MEDS ORDERED: LORazepam 3 MG/6 ML VIAL IV PRN (15:41)
[2018-09-26] MEDS ORDERED: ATIVAN IV ALCOHOL WITHDRAWL IV SCH (15:45)
[2018-09-26] MEDS: SODIUM CHLORIDE 0.9% 1000ML 1,000 ML IV SCH (16:21)
[2018-09-26] MEDS: LORazepam 2 MG/4 ML VIAL IV PRN ×3 (16:38→21:46)
[2018-09-26] MEDS: THIAMINE HCL 100 MG TAB PO SCH (16:53)
[2018-09-26] MEDS: KETOROLAC TROMETHAMINE 15 MG/ML VIAL IV PRN ×2 (17:01→23:10)
[2018-09-26] MEDS: TRAMADOL HCL 50 MG TABLET PO PRN (20:25)
[2018-09-26] MEDS: ALUMINUM/MAGNESIUM SUSP 72 ML, LIDOCAINE HCL VISCOUS 2% 24 ML, BARCODE IDENTIFIER 1 EA PO PRN (21:56)
[2018-09-27] MEDS: SODIUM CHLORIDE 0.9% 1000ML 1,000 ML IV SCH (02:21)
[2018-09-27] MEDS: LORazepam 1 MG/2 ML VIAL IV PRN ×3 (02:30→23:54)
--- NOTE | 2018-09-27 06:39 | Hospitalist Progress Note ---
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 Wayne given additional 2 L of LR boluses HCO3 normalized Alcohol intoxication, history of alcoholism (+) mild tremors continue gabapentin protocol for alcohol withdrawal protocol PRN Ativan will need Alcohol Rehab Case mgt consulted Psych consulted as patient admits to depression and anxiety Thrombocytopenia Chronic, likely secondary to alcoholism No signs of bleeding check folate, vit b12 monitor Disposition pending will need Alcohol rehab patient seen and examined with ANNETTE solomon the whole encounter Subjective ff up for alcohol intoxication, epigastric pain seen resting in bed, not in distress states epigastric pain is improving no nausea reports mild tremors and anxiety, no hallucinations denies depression, suicidal ideations no other symptoms Review of Systems Review of Systems: All systems reviewed & are unremarkable except as noted in HPI & below Physical Exam Physical Exam: General- oriented x 3, not in distress, speaks in sentences with no effort or accessory muscle use Eyes- anicteric Neck- no JVD Lungs- clear BS BL, no rales, no wheezing Heart- normal rate, regular rhythm; no murmurs Abdomen- normal bowel sounds, nondistended, soft, moderate epigastric tenderness Extremities- no pretibial edema, no calf tenderness Neuro- alert, oriented x 3; no gross focal neurologic deficits Skin- warm & dry Results & Data Vital Signs (Past 12 Hours) Vital Signs Temp Pulse Pulse Resp BP Pulse Ox 09/27/18 04:30 36.4 C L 90 20 124/86 98 09/27/18 02:30 36.4 C L 92 H 18 128/87 100 09/26/18 23:49 103 H 09/26/18 22:44 36.5 C 93 H 18 114/80 96 09/26/18 21:39 37.1 C 110 H 18 125/88 99 09/26/18 20:15 37.1 C 90 16 124/87 98 Laboratory Results all noted, reviewed
[2018-09-27] MEDS: ALUMINUM/MAGNESIUM SUSP 72 ML, LIDOCAINE HCL VISCOUS 2% 24 ML, BARCODE IDENTIFIER 1 EA PO PRN ×3 (06:42→20:12)
[2018-09-27] MEDS: KETOROLAC TROMETHAMINE 15 MG/ML VIAL IV PRN (06:47)
[2018-09-27] MEDS: MULTIVITAMIN TAB PO SCH (07:08)
[2018-09-27] MEDS: THIAMINE HCL 100 MG TAB PO SCH (07:08)
[2018-09-27] MEDS: SUCRALFATE 1 GM/10 ML UDC PO SCH ×4 (07:08→20:10)
[2018-09-27 07:12] LABS: Hematocrit (blood only) 33.9 % (37-47); Hemoglobin 11.8 g/dL (12.0-16.0); Mean Corpuscular Hgb Conc 34.8 g/dL (32-36); Mean Corpuscular Volume 94.7 fL (80-100); Platelet Count 58 K/uL (130-400); RDW Coefficient of Variation 16.2 % (11.5-14.5); Red Blood Count 3.58 M/uL (4.2-5.4)
[2018-09-27] MEDS: LORazepam 0.5 MG/1 ML VIAL IV PRN ×2 (07:13→13:58)
[2018-09-27 07:23] LABS: RBC Morphology Unremarkable
[2018-09-27 07:24] LABS: Blood Urea Nitrogen 2 mg/dl (7-18); Calcium 8.1 mg/dl (8.5-10.1); Carbon Dioxide 25 mmol/L (21-32); Chloride 109 mmol/L (98-107); Creatinine Clr Calc Pharmacy 178.4 ml/min; Est GFR (African American) > 150.0; Est GFR (Non-African American) 141.4; Glucose 76 mg/dl (70-99); Potassium 3.4 mmol/L (3.5-5.1); Sodium 139 mmol/L (136-145)
[2018-09-27 07:27] LABS: ALC (manual) 1.55 K/uL (1.2-3.4); ANC (manual) 0.67 K/uL (1.4-6.5); Eosinophils # (manual) 0.05 K/uL (0-0.5); Eosinophils % (manual) 1.8 %; Lymphocytes # (manual) 1.05 K/uL (1.2-3.4); Lymphocytes % (manual) 40.2 %; Monocytes # (manual) 0.33 K/uL (0.11-0.59); Monocytes % (manual) 12.5 %; Neutrophils # (manual) 0.67 K/uL (1.4-6.5); Neutrophils % (manual) 25.9 %; Reactive Lymphocytes # (manual) 0.51 K/uL; Reactive Lymphocytes % (manual) 19.6 %
[2018-09-27] MEDS ORDERED: POTASSIUM CHLORIDE 20 MEQ TABCR PO STA (08:07)
[2018-09-27] MEDS: PANTOprazole 40 MG in SYRINGE 0 ML IV SCH (09:03)
[2018-09-27] MEDS: TRAMADOL HCL 50 MG TABLET PO PRN (09:03)
[2018-09-27] MEDS ORDERED: MAGNESIUM SULFATE / D5W 1 GM/100 ML BAG IV ONE (09:40)
[2018-09-27] MEDS ORDERED: KETOROLAC TROMETHAMINE 15 MG/ML VIAL IV ONE (09:43)
[2018-09-27] MEDS ORDERED: ACETAMINOPHEN 325 MG TAB PO PRN (09:44)
--- NOTE | 2018-09-27 09:51 | Hospitalist Progress Note ---
Date of Service September 27, 2018 Assessment & Plan (1) Epigastric pain: Pt is a 23 y/o female w ongoing ETOH abuse, marijuana uses, who presented with epigastric abdominal pain Epigastric pain -Likely secondary to alcohol gastritis; Associated with vomiting -on full liquid diet, will advance to regular diet given that nausea is resolving -continue gastroenterology service recommendations of PPI IV BID; Carafate 1g susp QID, GI cocktail TID prn GI upset -gastroenterology service does not suspect peptic ulcer disease or of pancreatitis given relatively stable hemoglobin and liver function enzymes Lactic acidosis, present on admission -lactic acid 4.75 on 09/24/18 with serum bicarbonate of 9 -likely due to vomiting -serum bicarbonate has normalized after IV fluids on this admission Alcohol intoxication, history of alcoholism -as per psychiatry evaluation 09/26/18: "Patient reports significant alcohol use for the past 4 years with only a 1 month period of sobriety. This complicates a diagnosis of a formal anxiety or depressive disorder versus substance-induced mood disorder. Reported symptoms are nonspecific, and with statements provided do not meet criteria for a formal diagnosis at this timebut are certainly worth continuing to monitor. Given some anxiety may be related to her current hospitalization, could consider the use of hydroxyzine 25 mg every 4 hours as needed for acute anxiety while hospitalized." -will start hydroxyzine as recommended by psychiatry -will continue gabapentin protocol for alcohol withdrawal protocol and prn ativan -patient had discussions with other physicians on this hospital stay whether she might be interested in substance counseling or substance rehab in the future, but patient has not made definitive decisions as of yet Hypomagnesemia -admission serum magnesium was 1.3 on 09/24/18 admission -trending up to 1.8 as of 09/27/18, continue to replete with additional oral and IV magnesium to target goal of 2 Back pain -avoiding narcotics given concerns for addiction or misuse with alcohol -Flexeril TID and warm compress in case pain is from back spasms -prn acetaminophen if mild pain for fever -monitor with LFT labs in case of concern of pancreatitis as a possible cause of back pain Thrombocytopenia Chronic, likely secondary to alcoholism No signs of bleeding normal B12 and folic acid Neutropenia -noted that the absolute neutrophil count 0.67 K/ul on 09/27/18 -will trend and repeat CBC -no need for neutropenic precautions at this time given absence of fever DVT prophylaxis SCDs and encourage ambulation Subjective Patient seen and examined this AM, she reports that she has had less vomiting recently, no vomiting today, and that she has been able to keep her food down. She reports anxiety and chest discomfort and back pain and sometimes feeling warm. But no documented fever. Physical Exam Constitutional: well nourished Eyes: PERRL, conjunctivae normal, anicteric sclerae EOM intact bilaterally ENMT: external ear and nose normal, oropharynx normal Neck: trachea midline, no thyromegaly normal visual inspection Respiratory: normal respiratory effort, lungs clear to auscultation Cardiovascular: RRR, no murmur, no edema Gastrointestinal (Abdomen): Inspection/Auscultation: abdomen normal to inspection and normal bowel sounds Percussion/Palpation: abdomen soft Musculoskeletal: no cyanosis or clubbing, extremities motor strength 5/5 Head/Neck/Chest: normocephalic and head atraumatic Neurologic: PERRL, EOMI, accommodation nl, no face palsy, no dysarthria CN's II-XI intact bilaterally Psychiatric: A+Ox3, euthymic affect Orientation: cooperative Affect: + anxious affect Results & Data Vital Signs (Past 12 Hours) Vital Signs Temp Pulse Pulse Resp BP Pulse Ox 09/27/18 07:06 36.8 C 85 16 115/79 99 09/27/18 06:58 37.0 C 120 H 18 124/84 100 09/27/18 04:30 36.4 C L 90 20 124/86 98 09/27/18 02:30 36.4 C L 92 H 18 128/87 100 09/26/18 23:49 103 H 09/26/18 22:44 36.5 C 93 H 18 114/80 96
[2018-09-27] MEDS: GABAPENTIN 600 MG TAB PO SCH (11:03)
[2018-09-27] MEDS: MAGNESIUM OXIDE 400 MG TAB PO SCH (11:03)
[2018-09-27] MEDS: CYCLOBENZAPRINE HCL 5 MG TAB PO SCH ×2 (13:09→20:11)
[2018-09-27] MEDS: PROMETHAZINE HCL 12.5 MG in SODIUM CHLORIDE 0.9% 50 ML IV PRN (18:05)
--- NOTE | 2018-09-27 20:58 | XRay Report ---
XR chest 1V portable CLINICAL HISTORY: Atypical chest pain COMPARISON STUDY: July 2017 FINDINGS: The cardiac and mediastinal contours are normal. There is no evidence of focal pulmonary co nsolidation. There is no evidence of failure. No pleural effusions are visualized.[ There is a calcif ied right upper lung zone granuloma. IMPRESSION: No active disease in the chest. Electronically signed by: Jaime Sebastian M.D. 09/27/2018 8:56 PM
[2018-09-27] MEDS: PANTOprazole 40 MG TAB PO SCH (21:04)
[2018-09-27 21:50] LABS: Partial Thromboplastin Ratio 0.9; Partial Thromboplastin Time 23.6 Seconds (21.0-31.0)
[2018-09-27 22:00] LABS: D Dimer 520 ug/L FEU (0-500)
[2018-09-27] MEDS ORDERED: OPTIRAY 320 125ml IV PRN (22:54)
--- NOTE | 2018-09-27 23:02 | CT Scan Report ---
CT ANGIOGRAM OF THE CHEST CLINICAL HISTORY: Atypical chest pain and shortness of breath COMPARISON STUDY: Chest x-ray dated 09/27/2018 TECHNIQUE: Following the IV administration of 94 mL of Optiray-320, CT angiogram of the thorax was pe rformed from the thoracic inlet to the lung bases utilizing the pulmonary embolus protocol. Images ar e reviewed in the axial, sagittal, and coronal planes. IV contrast was administered without complicat ion. MIP imaging was performed. A dose lowering technique was utilized adhering to the principles of ALARA. CT DOSE: 241.47 mGy.cm FINDINGS: No pathologically enlarged axillary mediastinal or hilar lymph nodes were visualized. There was no evidence of thoracic aortic dilatation. There were no pulmonary artery filling defects to indicate acute pulmonary embolism. There are no pleural effusions. There is no focal pulmonary consolidation. There is no pneumothorax. There is a calcified right upper lobe granuloma. IMPRESSION: 1. No acute intrathoracic findings 2. No evidence of acute pulmonary embolism 3. No evidence of focal pulmonary consolidation 4. No evidence of pneumothorax Electronically signed by: Jaime Sebastian M.D. 09/27/2018 11:00 PM
[2018-09-27] MEDS ORDERED: NSS + 20MEQ KCL 20 MEQ/1,000 ML BAG IV ONE (23:30)
[2018-09-28] MEDS ORDERED: LACTATED RINGER'S 1,000 ML IV ONE ×2 (00:25→02:30)
[2018-09-28] MEDS ORDERED: ACETAMINOPHEN 65 ML IV ONE (00:28)
[2018-09-28 00:50] LABS: Hemoglobin 12.7 g/dL (12.0-16.0); Mean Corpuscular Hemoglobin 33.4 pg (25-34); Mean Corpuscular Hgb Conc 35.3 g/dL (32-36); Mean Corpuscular Volume 94.7 fL (80-100); RDW Coefficient of Variation 16.1 % (11.5-14.5); RDW Standard Deviation 55.8 fL (36.4-46.3); White Blood Count 3.16 K/uL (4.8-10.8)
[2018-09-28 01:07] LABS: Alanine Aminotransferase 29 U/L (12-78); Albumin Level 3.8 gm/dl (3.4-5.0); Aspartate Aminotransferase 30 U/L (15-37); BUN Creatinine Ratio 3.2 (10-20); Blood Urea Nitrogen 2 mg/dl (7-18); Calcium 8.8 mg/dl (8.5-10.1); Carbon Dioxide 24 mmol/L (21-32); Chloride 109 mmol/L (98-107); Creatinine Clr Calc Pharmacy 139.5 ml/min; Est GFR (African American) > 150.0; Est GFR (Non-African American) 130.4; Glucose 95 mg/dl (70-99); Magnesium 2.3 mg/dl (1.8-2.4); Potassium 3.7 mmol/L (3.5-5.1); Sodium 140 mmol/L (136-145)
[2018-09-28 01:09] LABS: Platelet Count 74 K/uL (130-400)
[2018-09-28 01:10] LABS: Albumin Globulin Ratio 1.1 (0.9-2); Alkaline Phosphatase 61 U/L (45-117); Basophils # (auto) 0.01 K/uL (0-0.2); Basophils % (auto) 0.3 %; Bilirubin,Total 0.6 mg/dl (0.2-1); Eosinophils # (auto) 0.09 K/uL (0-0.5); Eosinophils % (auto) 2.8 %; Globulin 3.4 gm/dl (2.5-4.0); Immature Granulocytes # (auto) 0.02 K/uL (0.00-0.02); Immature Granulocytes % (auto) 0.6 %; Lymphocytes # (auto) 1.37 K/uL (1.2-3.4); Lymphocytes % (auto) 43.4 %; Monocytes # (auto) 0.66 K/uL (0.11-0.59); Monocytes % (auto) 20.9 %; Neutrophils # (auto) 1.01 K/uL (1.4-6.5); Total Protein 7.2 gm/dl (6.4-8.2)
[2018-09-28] MEDS ORDERED: POTASSIUM CHLORIDE 20 MEQ TABCR PO STA (01:22)
[2018-09-28] MEDS: LORazepam 1 MG/2 ML VIAL IV PRN (02:35)
[2018-09-28] MEDS: CYCLOBENZAPRINE HCL 5 MG TAB PO SCH ×2 (07:25→13:15)
[2018-09-28] MEDS: THIAMINE HCL 100 MG TAB PO SCH (07:26)
[2018-09-28] MEDS: MAGNESIUM OXIDE 400 MG TAB PO SCH (07:26)
[2018-09-28] MEDS: MULTIVITAMIN TAB PO SCH (07:26)
[2018-09-28] MEDS: PANTOprazole 40 MG TAB PO SCH (07:26)
[2018-09-28] MEDS: SUCRALFATE 1 GM/10 ML UDC PO SCH ×2 (07:26→13:15)
[2018-09-28] MEDS: PROMETHAZINE HCL 12.5 MG in SODIUM CHLORIDE 0.9% 50 ML IV PRN (08:41)
[2018-09-28] MEDS ORDERED: KETOROLAC TROMETHAMINE 15 MG/ML VIAL IV ONE (11:14)
[2018-09-28] MEDS ORDERED: GABAPENTIN 600 MG TAB PO SCH (12:00)
--- NOTE | 2018-09-28 13:47 | Hospitalist Progress Note ---
Date of Service September 28, 2018 Assessment & Plan (1) Epigastric pain: Pt is a 23 y/o female w ongoing ETOH abuse, marijuana uses, who presented with epigastric abdominal pain Epigastric pain likely secondary to alcohol gastritis (vomiting with nausea resolved) -diet has been advanced to to regular diet and patient tolerating diet -on this admssion gastroenterology service recommendations of PPI IV BID; Carafate 1g susp QID, GI cocktail TID prn GI upset; gastroenterology service does not suspect peptic ulcer disease or of pancreatitis given relatively stable hemoglobin and liver function enzymes -discharge on pantoprazole daily Hepatic steatosis -as seen on admission CT abdomen -likely related to ETOH use Lactic acidosis present on admission (acidosis resolved) -lactic acid 4.75 on 09/24/18 with serum bicarbonate of 9 -likely due to vomiting -serum bicarbonate has normalized after IV fluids on this admission Alcohol intoxication, history of alcoholism (alcohol abuse) Anxiety -as per psychiatry evaluation 09/26/18: "Patient reports significant alcohol use for the past 4 years with only a 1 month period of sobriety. This complicates a diagnosis of a formal anxiety or depressive disorder versus substance-induced mood disorder. Reported symptoms are nonspecific, and with statements provided do not meet criteria for a formal diagnosis at this timebut are certainly worth continuing to monitor. Given some anxiety may be related to her current hospitalization, could consider the use of hydroxyzine 25 mg every 4 hours as needed for acute anxiety while hospitalized." -patient had gabapentin protocol for alcohol withdrawal protocol and prn ativan -patient had discussions with other physicians on this hospital stay whether she might be interested in substance counseling or substance rehab in the future, but patient has not made definitive decisions as of yet -Patient was counseled on cutting back on alcohol use and patient has been provided information on alcohol substance counseling Patient has discharge prescriptions of hydroxyzine 25 every 6 hours as needed for anxiety (40 tablets prescribed) Hypomagnesemia -admission serum magnesium was 1.3 on 09/24/18 admission -after IV and oral magnesium supplements the serum magnesium normalized about 2 on 09/28/18 prescription of magnesium 400 mg daily Back pain -avoiding narcotics given concerns for addiction or misuse with alcohol -was treated in the hospital with Flexeril TID and warm compress, prn acetami nophen, and intermittent toradol Thrombocytopenia -Chronic, likely secondary to alcoholism -No signs of bleeding -normal B12 and folic acid Neutropenia -noted that the absolute neutrophil count 0.67 K/ul on 09/27/18 -no need for neutropenic precautions at this time given absence of fever -WBC and neutrophils increased by 09/28/18, HIV test which patient provided consent was negative Discharge Diagnosis Epigastric pain likely secondary to alcohol gastritis (vomiting with nausea resolved), Lactic acidosis present on admission (acidosis resolved), Alcohol intoxication/ history of alcoholism (alcohol abuse), Back pain, Hepatic steatosis, Thrombocytopenia, Neutropenia (improved), Anxiety, Hypomagnesemia Discharge Instructions Discharge to Home Patient has follow up to primary care doctor 10/02/2018 12:00 PM Provider William Mullins MD Department General Internal Medicine [facility] Patient was counseled on cutting back on alcohol use and patient has been provid ed information on alcohol substance counseling Patient has discharge prescriptions of hydroxyzine 25 every 6 hours as needed for anxiety (40 tablets prescribed) and prescription of magnesium 400 mg daily and pantoprazole 40 mg daily Subjective Patient ambulating and able to take shower. Back pain and chest discomfort appears resolving. patient reports her anxiety feels better. patient does not have tremors or tongue fasiculations. she has mild tachycardia only. denies shortness of breath. we discussed discharge and follow up plans at length Physical Exam Constitutional: well nourished Eyes: PERRL, conjunctivae normal, anicteric sclerae EOM intact bilaterally ENMT: external ear and nose normal, oropharynx normal Neck: trachea midline, no thyromegaly normal visual inspection Respiratory: normal respiratory effort, lungs clear to auscultation Cardiovascular: Rate/Rhythm: regular rhythm and + tachycardic (mild tachycardia) Gastrointestinal (Abdomen): Inspection/Auscultation: abdomen normal to inspection and normal bowel sounds Percussion/Palpation: abdomen soft Musculoskeletal: no cyanosis or clubbing, extremities motor strength 5/5 Head/Neck/Chest: normocephalic and head atraumatic Neurologic: PERRL, EOMI, accommodation nl, no face palsy, no dysarthria CN's II-XI intact bilaterally Psychiatric: A+Ox3, euthymic affect Orientation: cooperative Results & Data Vital Signs (Past 12 Hours) Vital Signs Temp Pulse Resp BP Pulse Ox 09/28/18 11:42 36.9 C 109 H 15 114/78 96 09/28/18 09:24 37.1 C 111 H 16 97/61 L 99 09/28/18 06:56 36.3 C L 90 16 116/79 99 09/28/18 02:19 37.0 C 104 H 20 98/62 L 97
--- NOTE | 2018-09-28 14:20 | Discharge Summary ---
Date of Service September 28, 2018 Admission HPI Per Admitting Provider Zahida Davidson is a 23-year-old female admitted medically for acute back and abdominal pain in addition to severe nausea and vomiting. Concern at this time is for the possibility of alcoholic hepatitis/pancreatitis. It is also quite possible that the patient is an active alcohol withdrawal. Psychiatric consultation was requested to evaluate patient for anxiety or depression. There is a history of heavy alcohol abuse reported. Case was reviewed with psychiatric liaison nurse. At time of the assessment patient is cooperative but does appear to be in some moderate distress. When asked how she was feeling patient states, "itchy, shaky, and in a lot of pain. I am sweating real bad, but I am so cold." Patient shares with this provider that she has been drinking heavily for the past 4 years. Typically the patient drinks between 6 shots and have a handle of vodka on a daily basis. Patient states that she has been to rehab once in the past for 1 week. She was able to maintain sobriety for a month and 3 days, and then returned to alcohol use. She also reports smoking marijuana daily which she finds helpful for anxiety and chronic pain. We discussed patient's anxiety which she describes as "constant." Patient states her anxiety is heightened at this time due to recently moving back to [place] from [place]. Patient states otherwise she has anxiety related to setting up a job and situational/relational stressors. Patient does report a history of panic attacks, stating she has had 5 in her lifetime. During these episodes the patient reports shortness of breath, and "feeling like I am going to ." The patient states that these are often not triggered by anything specific. Patient denies any significant depressive symptoms. She denies hopelessness, worthlessness, self-harm urges, and suicidal ideation. Patient states she has never been hospitalized on an inpatient psychiatric unit, and has never previously attempted to end her life. Patient states she has never had outpatient psychiatric care to address her reported anxiety. We discussed the effect that chronic alcohol use can have on mood and anxiety, the patient was encouraged to consider inpatient drug and alcohol rehabilitation. Patient states she will "consider," but she is uninterested in immediate discharge to a facility once medically cleared. Patient states her focus at this time is starting a job and getting settled. She does not have insurance at this time, but is willing to accept contact information for [facility] as well as psychiatric offices that except medical assistance. Pt denies SI, HI, SIB, A/V hallucinations, paranoia, stacie/hypomania, other symptoms more suggestive of a bipolar presentation, OCD, PTSD, eating disorder, and other specific psychiatric symptoms. Admission Exam Per Admitting Provider General- oriented x 3, somewhat uncomfortable secondary to pain, speaks in sentences with no effort or accessory muscle use Eyes- anicteric Neck- no JVD Lungs- clear breath sounds bilaterally, no rales/wheezes Heart- normal rate, regular rhythm; no murmurs Abdomen- normal bowel sounds, nondistended, soft, positive moderate tenderness in epigastric area Extremities- no pretibial edema, no calf tenderness Neuro- alert, oriented x 3; no gross focal neurologic deficits Skin- warm & dry Principal Diagnosis Epigastric pain likely secondary to alcohol gastritis (vomiting with nausea resolved), Lactic acidosis present on admission (acidosis resolved), Alcohol intoxication/ history of alcoholism (alcohol abuse), Back pain, Hepatic steatosis, Thrombocytopenia, Neutropenia (improved), Anxiety, Hypomagnesemia Discharge Exam Constitutional well nourished Eyes PERRL, conjunctivae normal, anicteric sclerae EOM intact bilaterally ENMT external ear and nose normal, oropharynx normal Neck trachea midline, no thyromegaly normal visual inspection Respiratory normal respiratory effort, lungs clear to auscultation Cardiovascular RRR, no murmur, no edema Rate/Rhythm: regular rhythm and + tachycardic (mild tachycardia) Gastrointestinal (Abdomen) Inspection/Auscultation: abdomen normal to inspection and normal bowel sounds Percussion/Palpation: abdomen soft Musculoskeletal no cyanosis or clubbing, extremities motor strength 5/5 Head/Neck/Chest: normocephalic and head atraumatic Neurologic PERRL, EOMI, accommodation nl, no face palsy, no dysarthria CN's II-XI intact bilaterally Psychiatric A+Ox3, euthymic affect Orientation: cooperative Affect: + anxious affect Discharge Data Allergies Allergy/AdvReac Type Severity Reaction Status Date / Time amairani Allergy Mild GUMS SWELL Verified 09/24/18 16:46 Consultations 09/24/18 18:20 ED Decision to Admit Stat 09/24/18 19:03 Consult Gastroenterology Stat 09/24/18 19:47 Consult Case Management - Discharge Planning Routine Consult Gas Fitter Apprentice Routine Consult Gas Fitter Apprentice Routine 09/25/18 12:00 Consult Psychiatry Routine Ordered Studies 09/24/18 16:18 CT abd pelvis IV con only Stat 09/27/18 22:02 CT angio chest PE protocol Urgent Hospital Course (1) Epigastric pain: Pt is a 23 y/o female w ongoing ETOH abuse, marijuana uses, who presented with epigastric abdominal pain Epigastric pain likely secondary to alcohol gastritis (vomiting with nausea resolved) -diet has been advanced to to regular diet and patient tolerating diet -on this admssion gastroenterology service recommendations of PPI IV BID; Carafate 1g susp QID, GI cocktail TID prn GI upset; gastroenterology service does not suspect peptic ulcer disease or of pancreatitis given relatively stable hemoglobin and liver function enzymes -discharge on pantoprazole daily Hepatic steatosis -as seen on admission CT abdomen -likely related to ETOH use Lactic acidosis present on admission (acidosis resolved) -lactic acid 4.75 on 09/24/18 with serum bicarbonate of 9 -likely due to vomiting -serum bicarbonate has normalized after IV fluids on this admission Alcohol intoxication, history of alcoholism (alcohol abuse) Anxiety -as per psychiatry evaluation 09/26/18: "Patient reports significant alcohol use for the past 4 years with only a 1 month period of sobriety. This complicates a diagnosis of a formal anxiety or depressive disorder versus substance-induced mood disorder. Reported symptoms are nonspecific, and with statements provided do not meet criteria for a formal diagnosis at this timebut are certainly worth continuing to monitor. Given some anxiety may be related to her current hospitalization, could consider the use of hydroxyzine 25 mg every 4 hours as needed for acute anxiety while hospitalized." -patient had gabapentin protocol for alcohol withdrawal protocol and prn ativan -patient had discussions with other physicians on this hospital stay whether she might be interested in substance counseling or substance rehab in the future, but patient has not made definitive decisions as of yet -Patient was counseled on cutting back on alcohol use and patient has been provided information on alcohol substance counseling Patient has discharge prescriptions of hydroxyzine 25 every 6 hours as needed for anxiety (40 tablets prescribed) Hypomagnesemia -admission serum magnesium was 1.3 on 09/24/18 admission -after IV and oral magnesium supplements the serum magnesium normalized about 2 on 09/28/18 prescription of magnesium 400 mg daily Back pain -avoiding narcotics given concerns for addiction or misuse with alcohol -was treated in the hospital with Flexeril TID and warm compress, prn acetaminophen, and intermittent toradol Thrombocytopenia -Chronic, likely secondary to alcoholism -No signs of bleeding -normal B12 and folic acid Neutropenia -noted that the absolute neutrophil count 0.67 K/ul on 09/27/18 -no need for neutropenic precautions at this time given absence of fever -WBC and neutrophils increased by 09/28/18, HIV test which patient provided consent was negative Discharge Diagnosis Epigastric pain likely secondary to alcohol gastritis (vomiting with nausea resolved), Lactic acidosis present on admission (acidosis resolved), Alcohol intoxication/ history of alcoholism (alcohol abuse), Back pain, Hepatic steatosis, Thrombocytopenia, Neutropenia (improved), Anxiety, Hypomagnesemia Discharge Instructions Discharge to Home Patient has follow up to primary care doctor 10/02/2018 12:00 PM Provider William Mullins MD Department General Internal Medicine [facility] Patient was counseled on cutting back on alcohol use and patient has been provided information on alcohol substance counseling Patient has discharge prescriptions of hydroxyzine 25 every 6 hours as needed for anxiety (40 tablets prescribed) and prescription of magnesium 400 mg daily and pantoprazole 40 mg daily Total Time Total Time Spent Total Time Spent (In Minutes): 40 minutes Total Time Includes: Examination of the Patient, Discharge Planning, Medication Reconciliation and Communication With Other Providers Discharge Plan Discharge Items Patient Disposition: Home - Self-Care Reason For Visit: abdominal pain, nausea/vomiting Discharge Diagnosis: Epigastric pain likely secondary to alcohol gastritis (vomiting with nausea resolved), Lactic acidosis present on admission (acidosis resolved), Alcohol intoxication/ history of alcoholism (alcohol abuse), Back pain, Hepatic steatosis, Thrombocytopenia, Neutropenia (improved), Anxiety, Hypomagnesemia Condition: Good Discharge Goals: Improve disease control Activity: Resume your previous activity Non-emergency contact: Primary Care Provider Call non-emergency contact if: you have any medication questions Follow-up/Referrals: William Mullins MD [Primary Care Provider] - Diet: Regular Addtl Provider Instructions: Discharge to Home Patient has follow up to primary care doctor 10/02/2018 12:00 PM Provider William Mullins MD Department General Internal Medicine [facility] Patient was counseled on cutting back on alcohol use and patient has been provided information on alcohol substance counseling Patient has discharge prescriptions of hydroxyzine 25 every 6 hours as needed for anxiety (40 tablets prescribed) and prescription of magnesium 400 mg daily and pantoprazole 40 mg daily Prescriptions: New magnesium oxide 400 mg (241.3 mg magnesium) Tablet 400 mg PO QAM 30 Days Qty: 30 RF: 0 pantoprazole 40 mg Tablet,Delayed Release (Dr/Ec) 40 mg PO DAILY 30 Days Qty: 30 RF: 0 hydroxyzine HCl 25 mg Tablet 25 mg PO Q6H PRN (Reason: anxiety) 10 Days Qty: 40 RF: 0 Continued multivitamin Tablet 1 tab PO QAM RF: 0 vitamin B complex Tablet 1 tab PO DAILY RF: 0 vitamin E 400 unit Capsule PO DAILY RF: 0 cholecalciferol (vitamin D3) [Vitamin D3] 1,000 unit Tablet PO DAILY RF: 0 melatonin 5 mg Tablet 5 mg PO HS RF: 0 omega [id number]-fish oil [Fish Oil] 1,000 mg (120 mg-180 mg) Capsule 1 cap PO DAILY RF: 0 Stand-Alone Forms: [facility] Discharge Orders: Discharge Order (Routine); Ordered 09/28/18 Ordered By: Andrew Rios Admission Data Admit Date/Time: 09/24/18 18:58 Attending Provider: Andrew Rios Admit Provider: Rex Garsia Primary Care Provider: William Mullins Other Providers: Albaro Gomez ; Jason Angulo ; Ramos Bustillos ; Izabela Richardson ; Mari Grady ; Anton Reid ; Norma Alvarado ; Antwan Luna ; Amy Pedraza ; Akbar Mcneil ; Bear Bland ; Brionna Mcmanus ; Dixie Carrero ; Dinah Madison ; Brittney Mosquera ; Angel Roberson ; William Montemayor ; Cheryl Mchugh ; Mariano Guerra ; Damon Leslie ; Ken Florian ; Lisa De La Rosa ; Levi Larose ; Moriah Gann ; Rochelle Ponce ; Albaro Brady ; Rosaline Fitzgerald ; Sharda Mcclain ; Rayray Lynn I ; Toña Camara ; Nata Michel ; Blessing Allen ; Ty Galicia. Service: Telemetry
== END 2018-09-28 14:41 | disposition home or self-care (01) | DRG 391 ==
LOC: ED 15:46 → SUATTDRO 18:58 → 1E 18:58 → 2S 09-25 12:04

== ENCOUNTER 2018-10-16 | Inpatient (IN) ==
[2018-10-16] MEDS ORDERED: LORazepam 2 MG/4 ML VIAL IV STA ×2 (00:11→15:36)
[2018-10-16] MEDS ORDERED: MULTI-VITAMIN INFUSION 10 ML, THIAMINE HCL 100 MG, FOLIC ACID 1 MG in SODIUM CHLORIDE 0... IV SCH ×2 (00:15→03:50)
[2018-10-16 00:30] LABS: Hematocrit (blood only) 39.1 % (37-47); Hemoglobin 13.6 g/dL (12.0-16.0); Mean Corpuscular Hgb Conc 34.8 g/dL (32-36); Mean Corpuscular Volume 93.5 fL (80-100); RDW Coefficient of Variation 16.1 % (11.5-14.5); RDW Standard Deviation 54.6 fL (36.4-46.3); Red Blood Count 4.18 M/uL (4.2-5.4); White Blood Count 3.69 K/uL (4.8-10.8)
[2018-10-16] MEDS ORDERED: MONTELUKAST SODIUM 10 MG TABLET ONE (00:31)
[2018-10-16] MEDS: fentaNYL citrate 100 MCG/2 ML VIAL IV PRN ×4 (00:43→03:13)
[2018-10-16 00:46] LABS: Prothrombin Time 10.2 Seconds (9.0-12.0)
[2018-10-16 00:48] LABS: Alanine Aminotransferase 163 U/L (12-78); Albumin Level 4.4 gm/dl (3.4-5.0); Aspartate Aminotransferase 289 U/L (15-37); BUN Creatinine Ratio 11.4 (10-20); Bilirubin Direct 0.2 mg/dl (0-0.2); Blood Urea Nitrogen 9 mg/dl (7-18); Calcium 9.7 mg/dl (8.5-10.1); Carbon Dioxide 23 mmol/L (21-32); Chloride 98 mmol/L (98-107); Creatinine Clr Calc Pharmacy 90.9 ml/min; Est GFR (African American) 122.5; Est GFR (Non-African American) 105.7; Glucose 101 mg/dl (70-99); Magnesium 1.8 mg/dl (1.8-2.4); Potassium 3.5 mmol/L (3.5-5.1); Sodium 136 mmol/L (136-145)
[2018-10-16 00:50] LABS: Mean Platelet Volume 9.6 fL (7.4-10.4); Platelet Count 60 K/uL (130-400)
[2018-10-16 00:51] LABS: Basophils # (auto) 0.02 K/uL (0-0.2); Basophils % (auto) 0.5 %; Eosinophils # (auto) 0.03 K/uL (0-0.5); Eosinophils % (auto) 0.8 %; Immature Granulocytes # (auto) 0.01 K/uL (0.00-0.02); Immature Granulocytes % (auto) 0.3 %; Lymphocytes # (auto) 1.55 K/uL (1.2-3.4); Monocytes # (auto) 0.54 K/uL (0.11-0.59); Monocytes % (auto) 14.6 %; Neutrophils # (auto) 1.54 K/uL (1.4-6.5); Neutrophils % (auto) 41.8 %; Platelet Estimate Decreased (Normal)
[2018-10-16 00:53] LABS: Alkaline Phosphatase 114 U/L (45-117); Bilirubin,Total 0.7 mg/dl (0.2-1); Total Protein 8.4 gm/dl (6.4-8.2); Troponin I < 0.015 ng/ml (0-0.045)
[2018-10-16] MEDS ORDERED: SODIUM CHLORIDE 0.9% 1000ML 1,000 ML IV ONE (00:58)
[2018-10-16 01:00] LABS: Appearance Urine Clear (Clear); Bacteria Urine Automated Negative (Negative); Bilirubin Urine Negative (Negative); Blood Urine Negative (Negative); Color Urine Yellow; Epithelial Cell Urine Auto >30 /lpf (0-5); Glucose Urine UA Negative (Negative); Leukocyte Esterase Urine Negative (Negative); Nitrite Urine Negative (Negative); Protein Urine 1+ (Negative); RBC Urine Automated 0-4 /hpf (0-4); Specific Gravity Urine 1.028 (1.000-1.030); Urobilinogen Urine Negative (Negative); pH Urine 5.5 (4.5-7.5)
[2018-10-16 01:03] LABS: Ketones Urine 4+ (Negative)
[2018-10-16 01:30] LABS: Amphetamines+Metham, Urine Neg (Neg); Barbiturates, Urine Neg (Neg); Benzodiazepine, Urine Neg (Neg); Cocaine, Urine Neg (Neg); MDMA (Ecstacy), Urine Neg (Neg); Methadone, Urine Neg (Neg); Opiate, Urine Neg (Neg); Phencyclidine, Urine Neg (Neg)
[2018-10-16] MEDS ORDERED: ONDANSETRON INJ 2 MG/ML 2 ML VIAL ONE (02:14)
[2018-10-16] MEDS ORDERED: cloNIDine HCl 0.1 MG TAB PO PRN (03:50)
[2018-10-16] MEDS ORDERED: POTASSIUM CHLORIDE 10 MEQ TABCR PO STA (03:50)
[2018-10-16] MEDS ORDERED: NITROGLYCERIN SL 0.4 MG/TAB TAB SL PRN (03:50)
[2018-10-16] MEDS ORDERED: MoRPHine SULFATE 4 MG/ML 1 ML CARP\\VIAL IV PRN (03:50)
[2018-10-16] MEDS ORDERED: D5W AND NSS 1,000 ML IV SCH (03:50)
[2018-10-16] MEDS ORDERED: LORazepam 1.5 MG/3 ML VIAL IV PRN (03:50)
[2018-10-16] MEDS ORDERED: GABAPENTIN 1200MG ALCOHOL WITHDRAWAL LOAD PO STA (03:50)
[2018-10-16] MEDS: ONDANSETRON INJ 2 MG/ML 2 ML VIAL IV PRN (04:25)
[2018-10-16] MEDS ORDERED: GABAPENTIN 600 MG TAB PO SCH ×2 (04:30→12:00)
[2018-10-16 04:52] LABS: Vitamin B12 585 pg/ml (211-911)
[2018-10-16 04:53] LABS: Folate (Folic Acid) > 24.00 ng/ml (>5.38)
[2018-10-16 04:55] LABS: Albumin Level 3.5 gm/dl (3.4-5.0); Bilirubin Direct 0.2 mg/dl (0-0.2); Bilirubin,Total 0.6 mg/dl (0.2-1); Total Protein 6.5 gm/dl (6.4-8.2)
--- NOTE | 2018-10-16 05:29 | Emergency Department Note ---
Entered by Blas Aparicio acting as a scribe for ED Provider Note Name: Zahida Davidson Age: 23, female Arrives Via: Walk in Informant: Patient CC: Abdominal pain HPI: The patient is a 23 year old female who presents to the emergency department with complaints of constant abdominal pain beginning today. The patient states that she is trying to detox herself from alcohol. She notes that she had 4-5 shots today. She reports that she is now having abdominal pain, SOB, and some leg swelling. The patient states that she was in the emergency dep artment two weeks ago for abdominal pain that was shooting through to her back. She denies any abdominal trauma. ROS: See above HPI for pertinent positives & negatives. A total of 10 systems reviewed and were otherwise negative. Past Medical History: Pancreatitis, alcohol withdrawal Past Surgical History: None Family History: No pertinent family history Social History: Uses alcohol Home Medications: Please see medication list Allergies: None Physical: Vitals: BP 128/88, Pulse 95 H, Resp 17, Temp 98.1 F, O2 Sat 99 Exam: GENERAL: Patient is uncomfortable appearing and in moderate distress. Intoxicated, smells heavily of alcohol, dehydrated appearing. EYES: No scleral icterus, unremarkable pupils. ENT: Mucous membranes dry, no nasal congestion. NECK: No masses appreciated, no meningismus, trachea is midline. RESPIRATORY: No dyspnea. Clear to auscultation and equal bilaterally. No whe devang, no rhonchi. CARDIOVASCULAR: Regular rate and rhythm. No murmurs, rubs, gallops appreciated. GASTROINTESTINAL: Abdomen soft, no peritonitis. Bowel sounds positive. No masses appreciated, mild epigastric tenderness to palpation. BACK: No midline tenderness, no CVA tenderness EXTREMITIES: Normal motion all extremities, no cyanosis, no edema. NEUROLOGIC: Alert and oriented, no acute motor or sensory deficits, no focal weakness, cranial nerves grossly intact. SKIN: No rash, no jaundice, no diaphoresis. ED Course: Prior Medical Record, Triage/Nursing Notes, Medications, Allergies reviewed by Me [id number]: The patient was evaluated in room B11. A complete history and physical exam was performed. 0100: I reevaluated and updated the patient. She is feeling better. She notes that she has not eaten in several days except for intermittent small bites. She admits to vomiting within the last several days. 0102: Upon reevaluation, the patient is stable. I discussed the findings and the treatment plan with the patient. She expresses agreement and understanding. I spoke with Dr. Kuo of the [facility]. The patient will be evaluated for further management. Vital Signs: reviewed and remarkable for Tachycardia Labs: Reviewed and remarkable for +etoh, + lactic acid, elevated LFTs Interventions: saline lock, nss bolus, banana bag IV, Ativan 2mg IV, Fentanyl 50mcg IV, Zofan 4mg IV Consults: 0102: I reviewed the patient's case with Dr. Kuo - Hospitalist, [facility]. He will evaluate the patient for further management. Blood pressure: Normal. No Referral necessary Disposition: hospitalization Differentials: Differential diagnosis includes: alcohol intoxication, toxicological, infection, hypoglycemia, electrolyte abnormalities, cardiac sources, intracerebral event, neurologic, as well as others were entertained. Medical Decision Makin yr old alcoholic arrives with dehydration, epigastric pain and intoxication. She is shaking, tachy and dry and despite etoh 200 appears to be withdrawing, which given vast improvement with ativan suspect is somewhat the case. Lactic acid elevated which given dehydration and cirrhosis is expected and review it appears this has occurred on previous admissions. Lipase OK though LFTs seem to have bumped from most recent stay. Has just been admitted with abdo imaging and without surgical abdomen on exam I repeat imaging emergently is not indicated. She does not have wbc elevation nor fever at this time either. She clearly is not capable of weaning off ETOH at home and very much wishes help with rehab thus I think bringing in is reasonable, especially given fact she may need further intervention/evaluation for epigastric issues which were felt to be alcoholic gastritis on most recent admission. She was hydrated, symptoms were controlled and hospitalist consulted. Repeat evals show vast improvement in patient. Impression: Alcohol withdrawal, lactic acidosis, dehydration, epigastric pain Gómez Woody MD The scribe's documentation has been prepared under my direction and personally reviewed by me in its entirety. I confirm that the note above accurately reflects all work, treatment, procedures, and medical decision making performed by me. Impression & Plan Alcohol withdrawal, Epigastric abdominal pain, Acidosis, lactic, Dehydration Past Med/Surg History Family History Other No significant family history Social History Preferred Language: South [place] Communication Ability: Effective [employer] Supervisor Required: No Beliefs That Will Affect Care: None Current Living Situation: Homeless Other Information That Helps Us Care for You: No Feels Safe at Home: Yes and Hesitant to Answer Safety Concerns: Feels Safe At This Time Smoking Status: Current every day smoker Tobacco Type: cigarettes Cigarettes Per Day: 7-10 Do You Dip or Chew Tobacco: No Second Hand Exposure: No Tobacco Cessation Education Requested by Patient: No Hx Alcohol Use: Yes Alcohol type: hard liquor Hx Substance Use: Yes substance use type: marijuana Last Used Substance: Hours (ago) Last Used Substance Other:: 10/15 in the AM Results & Data Vital Signs Vital Signs - 24 hr 10/16/18 00:03 10/16/18 00:23 10/16/18 00:31 Temperature 36.7 C Temperature Source Oral Sepsis Recent Fever Within 48 Hours No Sepsis Action Taken by Nursing No Action Required Pulse Rate 146 H 112 H 106 H Respiratory Rate 22 13 17 Respiratory Effort / Characteristics Non-Labored Spontaneous Respiratory Depth Normal Blood Pressure 122/92 131/96 130/95 Blood Pressure Mean 102 107 106 Pulse Oximetry 99 Oxygen Delivery Method Room Air 10/16/18 01:00 10/16/18 01:30 10/16/18 02:00 Temperature Temperature Source Sepsis Recent Fever Within 48 Hours Sepsis Action Taken by Nursing Pulse Rate 104 H 95 H 95 H Respiratory Rate 18 17 18 Respiratory Effort / Characteristics Respiratory Depth Blood Pressure 133/87 128/88 116/86 Blood Pressure Mean 102 101 96 Pulse Oximetry Oxygen Delivery Method 10/16/18 02:30 Temperature Temperature Source Sepsis Recent Fever Within 48 Hours Sepsis Action Taken by Nursing Pulse Rate 97 H Respiratory Rate 20 Respiratory Effort / Characteristics Respiratory Depth Blood Pressure 121/81 Blood Pressure Mean 94 Pulse Oximetry Oxygen Delivery Method Home Medications Current Medication List: was personally reviewed by me Laboratory Data Attestation: I reviewed the patient's lab results. Result diagrams: 10/16/18 00:19 10/16/18 00:20 Lab Results 10/16/18 10/16/18 10/16/18 Range/Units 00:19 00:19 00:20 WBC 3.69 L (4.8-10.8) K/uL RBC 4.18 L (4.2-5.4) M/uL Hgb 13.6 (12.0-16.0) g/dL Hct 39.1 (37-47) % MCV 93.5 (80-100) fL MCH 32.5 (25-34) pg MCHC 34.8 (32-36) g/dL RDW Std Deviation 54.6 H (36.4-46.3) fL RDW Coeff of Nayana 16.1 H (11.5-14.5) % Plt Count 60 L (130-400) K/uL MPV 9.6 (7.4-10.4) fL Immature Gran % (Auto) 0.3 % Neut % (Auto) 41.8 % Lymph % (Auto) 42.0 % [place] % (Auto) 14.6 % Eos % (Auto) 0.8 % Baso % (Auto) 0.5 % Immature Gran # (Auto) 0.01 (0.00-0.02) K/uL Neut # (Auto) 1.54 (1.4-6.5) K/uL Lymph # (Auto) 1.55 (1.2-3.4) K/uL [place] # (Auto) 0.54 (0.11-0.59) K/uL Eos # (Auto) 0.03 (0-0.5) K/uL Baso # (Auto) 0.02 (0-0.2) K/uL Platelet Estimate Decreased L (Normal) PT (9.0-12.0) Seconds INR (0.9-1.1) Sodium 136 (136-145) mmol/L Potassium 3.5 (3.5-5.1) mmol/L Chloride 98 (98-107) mmol/L Carbon Dioxide 23 (21-32) mmol/L Anion Gap 15.0 H (3-11) BUN 9 (7-18) mg/dl Creatinine 0.78 (0.6-1.2) mg/dl Est Cr Clr Drug Dosing 90.9 ml/min Est GFR ( Amer) 122.5 Est GFR (Non-Af Amer) 105.7 BUN/Creatinine Ratio 11.4 (10-20) Glucose 101 H (70-99) mg/dl Lactate 3.6 H* (0.4-2.0) mmol/L Calcium 9.7 (8.5-10.1) mg/dl Magnesium 1.8 (1.8-2.4) mg/dl Total Bilirubin 0.7 (0.2-1) mg/dl Direct Bilirubin 0.2 (0-0.2) mg/dl AST 289 H (15-37) U/L ALT 163 H (12-78) U/L Alkaline Phosphatase 114 (45-117) U/L Troponin I < 0.015 (0-0.045) ng/ml Total Protein 8.4 H (6.4-8.2) gm/dl Albumin 4.4 (3.4-5.0) gm/dl Lipase 332 (73-393) U/L Urine Color Urine Appearance (Clear) Urine pH (4.5-7.5) Ur Specific [place] (1.000-1.030) Urine Protein (Negative) Urine Glucose (UA) (Negative) Urine Ketones (Negative) Urine Blood (Negative) Urine Nitrite (Negative) Urine Bilirubin (Negative) Urine Urobilinogen (Negative) Ur Leukocyte Esterase (Negative) Urine WBC (Auto) (0-5) /hpf Urine RBC (Auto) (0-4) /hpf U Hyaline Cast (Auto) (0-5) /lpf U Epithel Cells (Auto) (0-5) /lpf Urine Bacteria (Auto) (Negative) Urine Opiates Screen (Neg) Ur Methadone, Qual (Neg) Urine Barbiturates (Neg) Ur Phencyclidine (PCP) (Neg) U Amphetamin/Meth Scrn (Neg) MDMA (Ecstasy) Screen (Neg) U Benzodiazepines Scrn (Neg) Ur Cocaine Metabolite (Neg) U Marijuana (THC) Screen (Neg) Ethyl Alcohol mg/dL (0-3) mg/dl 10/16/18 10/16/18 10/16/18 Range/Units 00:20 00:20 00:30 WBC (4.8-10.8) K/uL RBC (4.2-5.4) M/uL Hgb (12.0-16.0) g/dL Hct (37-47) % MCV (80-100) fL MCH (25-34) pg MCHC (32-36) g/dL RDW Std Deviation (36.4-46.3) fL RDW Coeff of Nayana (11.5-14.5) % Plt Count (130-400) K/uL MPV (7.4-10.4) fL Immature Gran % (Auto) % Neut % (Auto) % Lymph % (Auto) % [place] % (Auto) % Eos % (Auto) % Baso % (Auto) % Immature Gran # (Auto) (0.00-0.02) K/uL Neut # (Auto) (1.4-6.5) K/uL Lymph # (Auto) (1.2-3.4) K/uL [place] # (Auto) (0.11-0.59) K/uL Eos # (Auto) (0-0.5) K/uL Baso # (Auto) (0-0.2) K/uL Platelet Estimate (Normal) PT 10.2 (9.0-12.0) Seconds INR 1.0 (0.9-1.1) Sodium (136-145) mmol/L Potassium (3.5-5.1) mmol/L Chloride (98-107) mmol/L Carbon Dioxide (21-32) mmol/L Anion Gap (3-11) BUN (7-18) mg/dl Creatinine (0.6-1.2) mg/dl Est Cr Clr Drug Dosing ml/min Est GFR ( Amer) Est GFR (Non-Af Amer) BUN/Creatinine Ratio (10-20) Glucose (70-99) mg/dl Lactate (0.4-2.0) mmol/L Calcium (8.5-10.1) mg/dl Magnesium (1.8-2.4) mg/dl Total Bilirubin (0.2-1) mg/dl Direct Bilirubin (0-0.2) mg/dl AST (15-37) U/L ALT (12-78) U/L Alkaline Phosphatase (45-117) U/L Troponin I (0-0.045) ng/ml Total Protein (6.4-8.2) gm/dl Albumin (3.4-5.0) gm/dl Lipase (73-393) U/L Urine Color Urine Appearance (Clear) Urine pH (4.5-7.5) Ur Specific [place] (1.000-1.030) Urine Protein (Negative) Urine Glucose (UA) (Negative) Urine Ketones (Negative) Urine Blood (Negative) Urine Nitrite (Negative) Urine Bilirubin (Negative) Urine Urobilinogen (Negative) Ur Leukocyte Esterase (Negative) Urine WBC (Auto) (0-5) /hpf Urine RBC (Auto) (0-4) /hpf U Hyaline Cast (Auto) (0-5) /lpf U Epithel Cells (Auto) (0-5) /lpf Urine Bacteria (Auto) (Negative) Urine Opiates Screen Neg (Neg) Ur Methadone, Qual Neg (Neg) Urine Barbiturates Neg (Neg) Ur Phencyclidine (PCP) Neg (Neg) U Amphetamin/Meth Scrn Neg (Neg) MDMA (Ecstasy) Screen Neg (Neg) U Benzodiazepines Scrn Neg (Neg) Ur Cocaine Metabolite Neg (Neg) U Marijuana (THC) Screen Pos H (Neg) Ethyl Alcohol mg/dL 209.0 H (0-3) mg/dl 10/16/18 Range/Units 00:30 WBC (4.8-10.8) K/uL RBC (4.2-5.4) M/uL Hgb (12.0-16.0) g/dL Hct (37-47) % MCV (80-100) fL MCH (25-34) pg MCHC (32-36) g/dL RDW Std Deviation (36.4-46.3) fL RDW Coeff of Nayana (11.5-14.5) % Plt Count (130-400) K/uL MPV (7.4-10.4) fL Immature Gran % (Auto) % Neut % (Auto) % Lymph % (Auto) % [place] % (Auto) % Eos % (Auto) % Baso % (Auto) % Immature Gran # (Auto) (0.00-0.02) K/uL Neut # (Auto) (1.4-6.5) K/uL Lymph # (Auto) (1.2-3.4) K/uL [place] # (Auto) (0.11-0.59) K/uL Eos # (Auto) (0-0.5) K/uL Baso # (Auto) (0-0.2) K/uL Platelet Estimate (Normal) PT (9.0-12.0) Seconds INR (0.9-1.1) Sodium (136-145) mmol/L Potassium (3.5-5.1) mmol/L Chloride (98-107) mmol/L Carbon Dioxide (21-32) mmol/L Anion Gap (3-11) BUN (7-18) mg/dl Creatinine (0.6-1.2) mg/dl Est Cr Clr Drug Dosing ml/min Est GFR ( Amer) Est GFR (Non-Af Amer) BUN/Creatinine Ratio (10-20) Glucose (70-99) mg/dl Lactate (0.4-2.0) mmol/L Calcium (8.5-10.1) mg/dl Magnesium (1.8-2.4) mg/dl Total Bilirubin (0.2-1) mg/dl Direct Bilirubin (0-0.2) mg/dl AST (15-37) U/L ALT (12-78) U/L Alkaline Phosphatase (45-117) U/L Troponin I (0-0.045) ng/ml Total Protein (6.4-8.2) gm/dl Albumin (3.4-5.0) gm/dl Lipase (73-393) U/L Urine Color Yellow Urine Appearance Clear (Clear) Urine pH 5.5 (4.5-7.5) Ur Specific [place] 1.028 (1.000-1.030) Urine Protein 1+ H (Negative) Urine Glucose (UA) Negative (Negative) Urine Ketones 4+ H (Negative) Urine Blood Negative (Negative) Urine Nitrite Negative (Negative) Urine Bilirubin Negative (Negative) Urine Urobilinogen Negative (Negative) Ur Leukocyte Esterase Negative (Negative) Urine WBC (Auto) 1-5 (0-5) /hpf Urine RBC (Auto) 0-4 (0-4) /hpf U Hyaline Cast (Auto) 1-5 (0-5) /lpf U Epithel Cells (Auto) >30 H (0-5) /lpf Urine Bacteria (Auto) Negative (Negative) Urine Opiates Screen (Neg) Ur Methadone, Qual (Neg) Urine Barbiturates (Neg) Ur Phencyclidine (PCP) (Neg) U Amphetamin/Meth Scrn (Neg) MDMA (Ecstasy) Screen (Neg) U Benzodiazepines Scrn (Neg) Ur Cocaine Metabolite (Neg) U Marijuana (THC) Screen (Neg) Ethyl Alcohol mg/dL (0-3) mg/dl Administered Medications Multivitamins 10 ml/ Thiamine HCl 100 mg/ Folic Acid 1 mg/Sodium Chloride 1,011.2 mls @ 500 mls/hr IV .Q2H2M CHUN Stop: 10/16/18 05:51 Last Admin: 10/16/18 04:58 Dose: 500 mls/hr Documented by: [id number] Dextrose/Sodium Chloride (D5w And Nss) 1,000 mls @ 150 mls/hr IV .Q6H40M CHUN Stop: 11/15/18 03:49 Last Admin: 10/16/18 04:50 Dose: 150 mls/hr Documented by: [id number] Morphine Sulfate (Morphine Sulfate) 3 mg IV Q3H PRN PRN Reason: Pain Stop: 10/30/18 03:49 Last Admin: 10/16/18 04:25 Dose: 3 mg Documented by: [id number] Ondansetron HCl (Zofran) 4 mg IV Q6H PRN PRN Reason: Nausea Stop: 11/15/18 03:49 Last Admin: 10/16/18 04:25 Dose: 4 mg Documented by: [id number] Discontinued Medications Fentanyl Citrate (Fentanyl Citrate) 50 mcg IV Q15M PRN PRN Reason: Pain Stop: 10/30/18 00:31 Last Admin: 10/16/18 03:13 Dose: 50 mcg Documented by: [id number] Admin: 10/16/18 02:21 Dose: 50 mcg Documented by: [id number] Admin: 10/16/18 01:31 Dose: 50 mcg Documented by: [id number] Admin: 10/16/18 00:43 Dose: 50 mcg Documented by: [id number] Gabapentin (Neurontin) 1,200 mg PO TODAY@0430 CHUN Stop: 10/16/18 04:31 Last Admin: 10/16/18 04:47 Dose: 1,200 mg Documented by: [id number] Lorazepam (Ativan) 2 mg in 4 mls @ 4 mls/min IV NOW STA Stop: 10/16/18 00:12 Last Admin: 10/16/18 00:43 Dose: 4 mls/min Documented by: [id number] Multivitamins 10 ml/ Thiamine HCl 100 mg/ Folic Acid 1 mg/Sodium Chloride 1,011.2 mls @ 1,011.2 mls/hr IV .Q1H CHUN Stop: 10/16/18 01:14 Last Infusion: 10/16/18 01:44 Dose: 0 mls/hr Documented by: [id number] Admin: 10/16/18 00:43 Dose: 1,011.2 mls/hr Documented by: [id number] Sodium Chloride (Nss 1000ml) 1,000 mls @ 999 mls/hr IV .Q1H1M ONE Stop: 10/16/18 01:58 Last Infusion: 10/16/18 02:24 Dose: 0 mls/hr Documented by: [id number] Admin: 10/16/18 01:15 Dose: 999 mls/hr Documented by: [id number] Montelukast Sodium (Singulair) Confirm Administered Dose 10 mg .ROUTE .STK-MED ONE Stop: 10/16/18 00:32 Last Admin: 10/16/18 00:43 Dose: Not Given Documented by: [id number] Ondansetron HCl (Zofran) Confirm Administered Dose 4 mg .ROUTE .STK-MED ONE Stop: 10/16/18 02:15 Last Admin: 10/16/18 02:21 Dose: 4 mg Documented by: [id number] Potassium Chloride (Klor-Con M10) 20 meq PO NOW STA Stop: 10/16/18 03:51 Last Admin: 10/16/18 04:47 Dose: 20 meq Documented by: [id number] Discharge Plan Visit Data *Final* Discharge Date/Time: 10/16/18 03:38 Chief Complaint: Abdominal Pain Stated Complaint: PAIN,PANCREANTITUS SYMPTOMS ED Provider: Gómez Woody Discharge Problem: Alcohol withdrawal, Epigastric abdominal pain, Acidosis, lactic, Dehydration Patient Disposition: Admitted As Inpatient Discharge Problem: Alcohol withdrawal Qualifiers: Complication of substance-induced condition: uncomplicated Qualified Code(s): F10.230 - Alcohol dependence with withdrawal, uncomplicated The scribe's documentation has been prepared under my direction and personally reviewed by me in its entirety. I confirm that the note above accurately reflects all work, treatment, procedures, and medical decision making performed by me.
--- NOTE | 2018-10-16 05:58 | History and Physical Report ---
DATE OF ADMISSION: 10/16/2018 CHIEF COMPLAINT: Abdominal pain, nausea, vomiting, alcoholism. HISTORY OF PRESENT ILLNESS: This is a 23-year-old female with past medical history significant for alcoholism, alcoholic pancreatitis, gastritis, presents with severe abdominal pain in the epigastric region radiating to back, also with nausea and vomiting. The patient was seen in the hospital on 09/24/2018 with a similar problem, alcohol intoxication and she improved and discharged to home. Followed up with PCP and there is plan for her to go permanently to [place] where her brother lives and also there is a plan for rehabilitation there, in end of September, but that did not happen as her brother was busy with his work. She got upset and she was drinking more. She says she was heavily drinking vodka and also tequila shots and today she tried to wean off and she got shaky and again she drank and developed severe epigastric pain and also with several episodes of nausea and vomiting. She came to the ER and she was also unstable on ambulation. Complains of some headaches, no blurred vision. No earache, no runny nose, no sore throat, no difficulty swallowing. Appetite is not good. She says she smokes marijuana. If she doesn't smoke' marijuana there is no appetite. Having chest pain after taking deep breath. No shortness of breath, has some cough, smokes 6 cigarettes every day. Normal bowel and bladder movements. No blood in the stools. No burning micturition. No blood in the urine. No swelling of the legs. No rash. In the ER again Alcohol level was 209, lactate was 3.6 and platelets was 60. ALLERGIES: AMINATA. PAST MEDICAL HISTORY: As mentioned above. PAST SURGICAL HISTORY: D and C induced . MEDICATIONS: B complex, vitamin D daily, magnesium oxide 400 mg daily, melatonin 5 mg p.o. at bedtime, multivitamins with minerals 1 tablet daily, Presho 3 fish oil 1 capsule daily, Protonix 40 mg p.o. daily, vitamin E 400 units p.o. daily. FAMILY HISTORY: No significant family history on file. SOCIAL HISTORY: Smokes 6cigarettes per day. Alcohol: Heavy alcohol drinking. Marijuana daily. REVIEW OF SYMPTOMS: As per HPI. Rest of review of systems negative. PHYSICAL EXAMINATION: GENERAL: The patient is moderate built, not in acute distress VITAL SIGNS: Temperature 36.7, pulse 95, respiratory rate 17, blood pressure 128/88, oxygen 98% room air. HEENT: No pallor, no icterus. Pupils equal, round, and reactive to light. NECK: No JVD, no neck masses. Supple. CARDIOVASCULAR: S1, S2 heard, regular rate and rhythm. No murmur or gallop. RESPIRATORY SYSTEM: Normal AP diameter. No accessory muscle use. No wheezing, no crackles. ABDOMEN: Soft, bowel sounds present. Epigastric tenderness present. Mild guarding, no rigidity. No distention. CENTRAL NERVOUS SYSTEM: Cranial nerves II through XII grossly intact. Nonfocal. EXTREMITIES: No edema, no erythema. LABS: WBC 3.6, hemoglobin 13.6, hematocrit 39.1, platelets 60. PT 10.2, INR 1. Sodium 136, potassium 3.5, chloride 98, bicarbonate 23, BUN 9, creatinine 0.7, serum glucose 101, lactate 3.6, calcium 9.7, magnesium 1.8, total bilirubin 0.7, direct bilirubin 0.2, AST 289, ALT 163, alkaline phosphatase 114. Troponin I less than 0.015. Lipase 322. Urinalysis positive for ketones. Urine toxicology screen, marijuana positive. Ethyl alcohol 209. ASSESSMENT AND PLAN: This is a 23-year-old female who presents with alcoholism, nausea and abdominal pain. 1. Severe abdominal pain versus nausea and vomiting, most likely alcoholic gastritis presented with similar episode last admission. Lipase is normal. CAT scan was not done in the ER. We will monitor. If the symptoms did not improve, will get a CAT scan. We will give antiemetics, IV fluids. GI consult. Continue home Protonix. Await GI input. . We will also check the urine porphyrins. 2. Elevated lactic acid most likely secondary to alcoholism. Continue IV fluids. We will follow the repeat lactic acid levels . If worsening we will get a CAT scan of the pelvis. 3. Alcoholism. with alcohol withdrawal and the patient says she has a plan to go to [place] to her brother's place and also for alcohol rehabilitation. For now we will place her on gabapentin alcohol withdrawal protocol IV Ativan p.r.n.Banana bag and then IV thiamine daily and multivitamin daily. 4. Thrombocytopenia and leukopenia, most likely from alcoholism. We will follow the labs. 5. transaminitis. We will repeat LFTs in a.m. 6. Deep venous thrombosis prophylaxis, sequential compression devices for now. 7. Disposition: Close monitoring in the tele floor. Level 1 full code. MTDD
[2018-10-16] MEDS ORDERED: SODIUM CHLORIDE 0.9% 1000ML 1,000 ML IV SCH (07:15)
[2018-10-16] MEDS ORDERED: HYDROmorphone INJ 0.5 MG/0.5 ML SYR IV STA (08:30)
[2018-10-16] MEDS: MULTIVITAMIN TAB PO SCH (08:38)
[2018-10-16] MEDS: CHOLECALCIFEROL 1,000 UNITS TAB PO SCH (08:38)
[2018-10-16] MEDS: VITAMIN B COMPLEX TAB PO SCH (08:38)
[2018-10-16] MEDS: MAGNESIUM OXIDE 400 MG TAB PO SCH (08:38)
[2018-10-16] MEDS: PANTOprazole 40 MG TAB PO SCH (08:38)
[2018-10-16] MEDS: THIAMINE HCL 100 MG in SYRINGE 9 ML IV SCH (08:39)
--- NOTE | 2018-10-16 11:25 | Gastrointestinal Consultation ---
Date of Consultation October 16, 2018 Assessment & Plan (1) Epigastric abdominal pain: 23 year old female admitted for ETOH detox - GI asked to evaluate for upper abdominal pain. She has had persistent epigastric pain, mild nausea w/o evidence of GIB. Her lipase is non-elevated, no abd imaging this admission. Her AST/ALT are elevated again in comparison to May labs. She does have mild tremors on examination but is awake, alert and oriented. - Trend LFTs - Monitor INR - ETOH Withdrawal protocol - Would recommend MRCP given elevated LFTs, upper abd pain, right sided abd pain - Labs not consistent w/ alc hep - Recommend a tylenol level - Will need liver serology if LFTs persistently elevated - Strict ETOH cessation was recommended - She notes she is moving and plans to try inpatient program at that time - No current plan for endoscopy, would await until she is more stable from a withdrawal standpoint Thank you for allowing us to participate in the care of this patient. Please call with any acute changes, questions or concerns. Please see addendum below with additional recommendation from my supervising physician. Present on Admission?: Yes Supervising Physician Co-Signing Physician Notes I have seen and examined the patient with DANISH Camacho whose note reflects our findings and plan. Agree wtih IVF hydration, ETOH withdrawal protocol, monitoring LFTS. MRCP pending. Nausea and abd persists. Abd exam is benign History of Present Illness Reason for Consultation: abd pain Requesting Physician: Gabriel Attending Physician: Andrew Rios MD History of Present Illness 23-year-old female with history of alcoholism, alcoholic pancreatitis, gastritis, tobacco abuse, recent ICU admission w/ ETOH withdrawal, DT, acidosis readmitted through the ED for detox - GI asked to evaluate for abd pain. Has had abd pain x 1-2 months. Constant. Epigastric. Associated w/ mild nausea. Intermittent emesis. Denies any black/bloody emesis. No change in BM. No diarrhea/constipation. Denies black or bloody stools. No fever, chills, CP, SOB. No imaging this admission. Alcohol level was 209, lactate was 3.6 and platelets was 60 No ADAM Transaminases are elevated w/ normal TB and coagulation studies HGB stable Allergies Allergy/AdvReac Type Severity Reaction Status Date / Time amairani Allergy Mild GUMS SWELL Verified 09/24/18 16:46 Home Medications Home Medications Medication Instructions Recorded Confirmed Type cholecalciferol (vitamin D3) 1,000 unit PO DAILY 09/24/18 10/16/18 History [Vitamin D3] melatonin 5 mg PO HS 09/24/18 10/16/18 History multivitamin 1 tab PO QAM 09/24/18 10/16/18 History omega 5-[id number]-fish oil [Fish Oil] 1 cap PO DAILY 09/24/18 10/16/18 History vitamin B complex 1 tab PO DAILY 09/24/18 10/16/18 History vitamin E 0 unit PO DAILY 09/24/18 10/16/18 History magnesium oxide 400 mg PO QAM 30 Days #30 tab 09/28/18 10/16/18 Rx pantoprazole 40 mg PO DAILY 30 Days #30 tab 09/28/18 10/16/18 Rx Patient History Family History Other No significant family history Social History Preferred Language: Irish Communication Ability: Effective Cattle Killer Required: No Beliefs That Will Affect Care: None Current Living Situation: Homeless Other Information That Helps Us Care for You: No Feels Safe at Home: Yes and Hesitant to Answer Safety Concerns: Feels Safe At This Time Smoking Status: Current every day smoker Tobacco Type: cigarettes Cigarettes Per Day: 7-10 Do You Dip or Chew Tobacco: No Second Hand Exposure: No Tobacco Cessation Education Requested by Patient: No Hx Alcohol Use: Yes Alcohol type: hard liquor Hx Substance Use: Yes substance use type: marijuana Last Used Substance: Hours (ago) Last Used Substance Other:: 6/2 in the AM Review of Systems Constitutional: no fever, no chills and no insomnia Respiratory: no cough, no chest congestion and no dyspnea Cardiovascular: no chest pain, no radiating jaw, neck or arm pain and no dyspnea on exertion Gastrointestinal: + abdominal pain and + nausea; no coffee ground emesis, no dysphagia, no blood in stools and no melena Physical Exam Constitutional: WD/WN, vitals as above Neck: trachea midline Respiratory: normal respiratory effort, lungs clear to auscultation Cardiovascular: RRR, no murmur, no edema Gastrointestinal (Abdomen): Inspection/Auscultation: normal bowel sounds Percussion/Palpation: + abdomen tender and abdomen soft; no guarding, abdomen not rigid and no abdominal mass Skin: no rashes, warm and dry Results & Data Vital Signs (Past 12 Hours) Vital Signs Temp Pulse Pulse Resp BP BP Pulse Ox 10/16/18 08:12 90 10/16/18 07:40 36.9 C 92 H 18 97/49 L 100 10/16/18 03:25 36.8 C 96 H 20 122/90 90 10/16/18 02:30 97 H 20 121/81 10/16/18 02:00 95 H 18 116/86 10/16/18 01:30 95 H 17 128/88 10/16/18 01:00 104 H 18 133/87 10/16/18 00:31 106 H 17 130/95 10/16/18 00:23 112 H 13 131/96 10/16/18 00:03 36.7 C 146 H 22 122/92 99 Laboratory Results 10/16/18 10/16/18 10/16/18 Range/Units 06:30 06:30 04:13 WBC (4.8-10.8) K/uL RBC (4.2-5.4) M/uL Hgb (12.0-16.0) g/dL Hct (37-47) % MCV (80-100) fL MCH (25-34) pg MCHC (32-36) g/dL RDW Std Deviation (36.4-46.3) fL RDW Coeff of Nayana (11.5-14.5) % Plt Count (130-400) K/uL MPV (7.4-10.4) fL Immature Gran % (Auto) % Neut % (Auto) % Lymph % (Auto) % [place] % (Auto) % Eos % (Auto) % Baso % (Auto) % Immature Gran # (Auto) (0.00-0.02) K/uL Neut # (Auto) (1.4-6.5) K/uL Lymph # (Auto) (1.2-3.4) K/uL [place] # (Auto) (0.11-0.59) K/uL Eos # (Auto) (0-0.5) K/uL Baso # (Auto) (0-0.2) K/uL Platelet Estimate (Normal) PT (9.0-12.0) Seconds INR (0.9-1.1) Sodium (136-145) mmol/L Potassium (3.5-5.1) mmol/L Chloride (98-107) mmol/L Carbon Dioxide (21-32) mmol/L Anion Gap (3-11) BUN (7-18) mg/dl Creatinine (0.6-1.2) mg/dl Est Cr Clr Drug Dosing ml/min Est GFR ( Amer) Est GFR (Non-Af Amer) BUN/Creatinine Ratio (10-20) Glucose (70-99) mg/dl Lactate 1.8 (0.4-2.0) mmol/L Calcium (8.5-10.1) mg/dl Magnesium (1.8-2.4) mg/dl Total Bilirubin (0.2-1) mg/dl Direct Bilirubin (0-0.2) mg/dl AST (15-37) U/L ALT (12-78) U/L Alkaline Phosphatase (45-117) U/L Troponin I (0-0.045) ng/ml Total Protein (6.4-8.2) gm/dl Albumin (3.4-5.0) gm/dl Lipase (73-393) U/L Vitamin B12 (211-911) pg/ml Folate (>5.38) ng/ml Urine Color Urine Appearance (Clear) Urine pH (4.5-7.5) Ur Specific [place] (1.000-1.030) Urine Protein (Negative) Urine Glucose (UA) (Negative) Urine Ketones (Negative) Urine Blood (Negative) Urine Nitrite (Negative) Urine Bilirubin (Negative) Urine Urobilinogen (Negative) Ur Leukocyte Esterase (Negative) Urine WBC (Auto) (0-5) /hpf Urine RBC (Auto) (0-4) /hpf U Hyaline Cast (Auto) (0-5) /lpf U Epithel Cells (Auto) (0-5) /lpf Urine Bacteria (Auto) (Negative) Ur [place] Porphobilinogen Pending U Porphobilinogen Intrp Pending Ur Total Porphyrins Pending Random Uroporphyrins I Pending Random Uroporphyrin III Pending U Rdm Heptacarboxylpor Pending U Rndm Hexacarboxylpor Pending U Rdm Pentacarboxylpor Pending U Random Coproporphyr I Pending U Rndm Coproporphyr III Pending Ur Porphyrins Interp Pending Urine Opiates Screen (Neg) Ur Methadone, Qual (Neg) Urine Barbiturates (Neg) Ur Phencyclidine (PCP) (Neg) U Amphetamin/Meth Scrn (Neg) MDMA (Ecstasy) Screen (Neg) U Benzodiazepines Scrn (Neg) Ur Cocaine Metabolite (Neg) U Marijuana (THC) Screen (Neg) U Marijuana THC Carboxy Ethyl Alcohol mg/dL (0-3) mg/dl 10/16/18 10/16/18 10/16/18 Range/Units 04:13 04:13 00:30 WBC (4.8-10.8) K/uL RBC (4.2-5.4) M/uL Hgb (12.0-16.0) g/dL Hct (37-47) % MCV (80-100) fL MCH (25-34) pg MCHC (32-36) g/dL RDW Std Deviation (36.4-46.3) fL RDW Coeff of Nayana (11.5-14.5) % Plt Count (130-400) K/uL MPV (7.4-10.4) fL Immature Gran % (Auto) % Neut % (Auto) % Lymph % (Auto) % [place] % (Auto) % Eos % (Auto) % Baso % (Auto) % Immature Gran # (Auto) (0.00-0.02) K/uL Neut # (Auto) (1.4-6.5) K/uL Lymph # (Auto) (1.2-3.4) K/uL [place] # (Auto) (0.11-0.59) K/uL Eos # (Auto) (0-0.5) K/uL Baso # (Auto) (0-0.2) K/uL Platelet Estimate (Normal) PT (9.0-12.0) Seconds INR (0.9-1.1) Sodium (136-145) mmol/L Potassium (3.5-5.1) mmol/L Chloride (98-107) mmol/L Carbon Dioxide (21-32) mmol/L Anion Gap (3-11) BUN (7-18) mg/dl Creatinine (0.6-1.2) mg/dl Est Cr Clr Drug Dosing ml/min Est GFR ( Amer) Est GFR (Non-Af Amer) BUN/Creatinine Ratio (10-20) Glucose (70-99) mg/dl Lactate (0.4-2.0) mmol/L Calcium (8.5-10.1) mg/dl Magnesium (1.8-2.4) mg/dl Total Bilirubin 0.6 (0.2-1) mg/dl Direct Bilirubin 0.2 (0-0.2) mg/dl AST 225 H (15-37) U/L ALT 126 H (12-78) U/L Alkaline Phosphatase 83 (45-117) U/L Troponin I (0-0.045) ng/ml Total Protein 6.5 D (6.4-8.2) gm/dl Albumin 3.5 (3.4-5.0) gm/dl Lipase (73-393) U/L Vitamin B12 585 (211-911) pg/ml Folate > 24.00 (>5.38) ng/ml Urine Color Urine Appearance (Clear) Urine pH (4.5-7.5) Ur Specific [place] (1.000-1.030) Urine Protein (Negative) Urine Glucose (UA) (Negative) Urine Ketones (Negative) Urine Blood (Negative) Urine Nitrite (Negative) Urine Bilirubin (Negative) Urine Urobilinogen (Negative) Ur Leukocyte Esterase (Negative) Urine WBC (Auto) (0-5) /hpf Urine RBC (Auto) (0-4) /hpf U Hyaline Cast (Auto) (0-5) /lpf U Epithel Cells (Auto) (0-5) /lpf Urine Bacteria (Auto) (Negative) Ur [place] Porphobilinogen U Porphobilinogen Intrp Ur Total Porphyrins Random Uroporphyrins I Random Uroporphyrin III U Rdm Heptacarboxylpor U Rndm Hexacarboxylpor U Rdm Pentacarboxylpor U Random Coproporphyr I U Rndm Coproporphyr III Ur Porphyrins Interp Urine Opiates Screen (Neg) Ur Methadone, Qual (Neg) Urine Barbiturates (Neg) Ur Phencyclidine (PCP) (Neg) U Amphetamin/Meth Scrn (Neg) MDMA (Ecstasy) Screen (Neg) U Benzodiazepines Scrn (Neg) Ur Cocaine Metabolite (Neg) U Marijuana (THC) Screen (Neg) U Marijuana THC Carboxy Pending Ethyl Alcohol mg/dL (0-3) mg/dl 10/16/18 10/16/18 10/16/18 Range/Units 00:30 00:30 00:20 WBC (4.8-10.8) K/uL RBC (4.2-5.4) M/uL Hgb (12.0-16.0) g/dL Hct (37-47) % MCV (80-100) fL MCH (25-34) pg MCHC (32-36) g/dL RDW Std Deviation (36.4-46.3) fL RDW Coeff of Nayana (11.5-14.5) % Plt Count (130-400) K/uL MPV (7.4-10.4) fL Immature Gran % (Auto) % Neut % (Auto) % Lymph % (Auto) % [place] % (Auto) % Eos % (Auto) % Baso % (Auto) % Immature Gran # (Auto) (0.00-0.02) K/uL Neut # (Auto) (1.4-6.5) K/uL Lymph # (Auto) (1.2-3.4) K/uL [place] # (Auto) (0.11-0.59) K/uL Eos # (Auto) (0-0.5) K/uL Baso # (Auto) (0-0.2) K/uL Platelet Estimate (Normal) PT 10.2 (9.0-12.0) Seconds INR 1.0 (0.9-1.1) Sodium (136-145) mmol/L Potassium (3.5-5.1) mmol/L Chloride (98-107) mmol/L Carbon Dioxide (21-32) mmol/L Anion Gap (3-11) BUN (7-18) mg/dl Creatinine (0.6-1.2) mg/dl Est Cr Clr Drug Dosing ml/min Est GFR ( Amer) Est GFR (Non-Af Amer) BUN/Creatinine Ratio (10-20) Glucose (70-99) mg/dl Lactate (0.4-2.0) mmol/L Calcium (8.5-10.1) mg/dl Magnesium (1.8-2.4) mg/dl Total Bilirubin (0.2-1) mg/dl Direct Bilirubin (0-0.2) mg/dl AST (15-37) U/L ALT (12-78) U/L Alkaline Phosphatase (45-117) U/L Troponin I (0-0.045) ng/ml Total Protein (6.4-8.2) gm/dl Albumin (3.4-5.0) gm/dl Lipase (73-393) U/L Vitamin B12 (211-911) pg/ml Folate (>5.38) ng/ml Urine Color Yellow Urine Appearance Clear (Clear) Urine pH 5.5 (4.5-7.5) Ur Specific [place] 1.028 (1.000-1.030) Urine Protein 1+ H (Negative) Urine Glucose (UA) Negative (Negative) Urine Ketones 4+ H (Negative) Urine Blood Negative (Negative) Urine Nitrite Negative (Negative) Urine Bilirubin Negative (Negative) Urine Urobilinogen Negative (Negative) Ur Leukocyte Esterase Negative (Negative) Urine WBC (Auto) 1-5 (0-5) /hpf Urine RBC (Auto) 0-4 (0-4) /hpf U Hyaline Cast (Auto) 1-5 (0-5) /lpf U Epithel Cells (Auto) >30 H (0-5) /lpf Urine Bacteria (Auto) Negative (Negative) Ur [place] Porphobilinogen U Porphobilinogen Intrp Ur Total Porphyrins Random Uroporphyrins I Random Uroporphyrin III U Rdm Heptacarboxylpor U Rndm Hexacarboxylpor U Rdm Pentacarboxylpor U Random Coproporphyr I U Rndm Coproporphyr III Ur Porphyrins Interp Urine Opiates Screen Neg (Neg) Ur Methadone, Qual Neg (Neg) Urine Barbiturates Neg (Neg) Ur Phencyclidine (PCP) Neg (Neg) U Amphetamin/Meth Scrn Neg (Neg) MDMA (Ecstasy) Screen Neg (Neg) U Benzodiazepines Scrn Neg (Neg) Ur Cocaine Metabolite Neg (Neg) U Marijuana (THC) Screen Pos H (Neg) U Marijuana THC Carboxy Ethyl Alcohol mg/dL (0-3) mg/dl 10/16/18 10/16/18 10/16/18 Range/Units 00:20 00:20 00:19 WBC (4.8-10.8) K/uL RBC (4.2-5.4) M/uL Hgb (12.0-16.0) g/dL Hct (37-47) % MCV (80-100) fL MCH (25-34) pg MCHC (32-36) g/dL RDW Std Deviation (36.4-46.3) fL RDW Coeff of Nayana (11.5-14.5) % Plt Count (130-400) K/uL MPV (7.4-10.4) fL Immature Gran % (Auto) % Neut % (Auto) % Lymph % (Auto) % [place] % (Auto) % Eos % (Auto) % Baso % (Auto) % Immature Gran # (Auto) (0.00-0.02) K/uL Neut # (Auto) (1.4-6.5) K/uL Lymph # (Auto) (1.2-3.4) K/uL [place] # (Auto) (0.11-0.59) K/uL Eos # (Auto) (0-0.5) K/uL Baso # (Auto) (0-0.2) K/uL Platelet Estimate (Normal) PT (9.0-12.0) Seconds INR (0.9-1.1) Sodium 136 (136-145) mmol/L Potassium 3.5 (3.5-5.1) mmol/L Chloride 98 (98-107) mmol/L Carbon Dioxide 23 (21-32) mmol/L Anion Gap 15.0 H (3-11) BUN 9 (7-18) mg/dl Creatinine 0.78 (0.6-1.2) mg/dl Est Cr Clr Drug Dosing 90.9 ml/min Est GFR ( Amer) 122.5 Est GFR (Non-Af Amer) 105.7 BUN/Creatinine Ratio 11.4 (10-20) Glucose 101 H (70-99) mg/dl Lactate 3.6 H* (0.4-2.0) mmol/L Calcium 9.7 (8.5-10.1) mg/dl Magnesium 1.8 (1.8-2.4) mg/dl Total Bilirubin 0.7 (0.2-1) mg/dl Direct Bilirubin 0.2 (0-0.2) mg/dl AST 289 H (15-37) U/L ALT 163 H (12-78) U/L Alkaline Phosphatase 114 (45-117) U/L Troponin I < 0.015 (0-0.045) ng/ml Total Protein 8.4 H (6.4-8.2) gm/dl Albumin 4.4 (3.4-5.0) gm/dl Lipase 332 (73-393) U/L Vitamin B12 (211-911) pg/ml Folate (>5.38) ng/ml Urine Color Urine Appearance (Clear) Urine pH (4.5-7.5) Ur Specific [place] (1.000-1.030) Urine Protein (Negative) Urine Glucose (UA) (Negative) Urine Ketones (Negative) Urine Blood (Negative) Urine Nitrite (Negative) Urine Bilirubin (Negative) Urine Urobilinogen (Negative) Ur Leukocyte Esterase (Negative) Urine WBC (Auto) (0-5) /hpf Urine RBC (Auto) (0-4) /hpf U Hyaline Cast (Auto) (0-5) /lpf U Epithel Cells (Auto) (0-5) /lpf Urine Bacteria (Auto) (Negative) Ur [place] Porphobilinogen U Porphobilinogen Intrp Ur Total Porphyrins Random Uroporphyrins I Random Uroporphyrin III U Rdm Heptacarboxylpor U Rndm Hexacarboxylpor U Rdm Pentacarboxylpor U Random Coproporphyr I U Rndm Coproporphyr III Ur Porphyrins Interp Urine Opiates Screen (Neg) Ur Methadone, Qual (Neg) Urine Barbiturates (Neg) Ur Phencyclidine (PCP) (Neg) U Amphetamin/Meth Scrn (Neg) MDMA (Ecstasy) Screen (Neg) U Benzodiazepines Scrn (Neg) Ur Cocaine Metabolite (Neg) U Marijuana (THC) Screen (Neg) U Marijuana THC Carboxy Ethyl Alcohol mg/dL 209.0 H (0-3) mg/dl 10/16/18 Range/Units 00:19 WBC 3.69 L (4.8-10.8) K/uL RBC 4.18 L (4.2-5.4) M/uL Hgb 13.6 (12.0-16.0) g/dL Hct 39.1 (37-47) % MCV 93.5 (80-100) fL MCH 32.5 (25-34) pg MCHC 34.8 (32-36) g/dL RDW Std Deviation 54.6 H (36.4-46.3) fL RDW Coeff of Nayana 16.1 H (11.5-14.5) % Plt Count 60 L (130-400) K/uL MPV 9.6 (7.4-10.4) fL Immature Gran % (Auto) 0.3 % Neut % (Auto) 41.8 % Lymph % (Auto) 42.0 % [place] % (Auto) 14.6 % Eos % (Auto) 0.8 % Baso % (Auto) 0.5 % Immature Gran # (Auto) 0.01 (0.00-0.02) K/uL Neut # (Auto) 1.54 (1.4-6.5) K/uL Lymph # (Auto) 1.55 (1.2-3.4) K/uL [place] # (Auto) 0.54 (0.11-0.59) K/uL Eos # (Auto) 0.03 (0-0.5) K/uL Baso # (Auto) 0.02 (0-0.2) K/uL Platelet Estimate Decreased L (Normal) PT (9.0-12.0) Seconds INR (0.9-1.1) Sodium (136-145) mmol/L Potassium (3.5-5.1) mmol/L Chloride (98-107) mmol/L Carbon Dioxide (21-32) mmol/L Anion Gap (3-11) BUN (7-18) mg/dl Creatinine (0.6-1.2) mg/dl Est Cr Clr Drug Dosing ml/min Est GFR ( Amer) Est GFR (Non-Af Amer) BUN/Creatinine Ratio (10-20) Glucose (70-99) mg/dl Lactate (0.4-2.0) mmol/L Calcium (8.5-10.1) mg/dl Magnesium (1.8-2.4) mg/dl Total Bilirubin (0.2-1) mg/dl Direct Bilirubin (0-0.2) mg/dl AST (15-37) U/L ALT (12-78) U/L Alkaline Phosphatase (45-117) U/L Troponin I (0-0.045) ng/ml Total Protein (6.4-8.2) gm/dl Albumin (3.4-5.0) gm/dl Lipase (73-393) U/L Vitamin B12 (211-911) pg/ml Folate (>5.38) ng/ml Urine Color Urine Appearance (Clear) Urine pH (4.5-7.5) Ur Specific [place] (1.000-1.030) Urine Protein (Negative) Urine Glucose (UA) (Negative) Urine Ketones (Negative) Urine Blood (Negative) Urine Nitrite (Negative) Urine Bilirubin (Negative) Urine Urobilinogen (Negative) Ur Leukocyte Esterase (Negative) Urine WBC (Auto) (0-5) /hpf Urine RBC (Auto) (0-4) /hpf U Hyaline Cast (Auto) (0-5) /lpf U Epithel Cells (Auto) (0-5) /lpf Urine Bacteria (Auto) (Negative) Ur [place] Porphobilinogen U Porphobilinogen Intrp Ur Total Porphyrins Random Uroporphyrins I Random Uroporphyrin III U Rdm Heptacarboxylpor U Rndm Hexacarboxylpor U Rdm Pentacarboxylpor U Random Coproporphyr I U Rndm Coproporphyr III Ur Porphyrins Interp Urine Opiates Screen (Neg) Ur Methadone, Qual (Neg) Urine Barbiturates (Neg) Ur Phencyclidine (PCP) (Neg) U Amphetamin/Meth Scrn (Neg) MDMA (Ecstasy) Screen (Neg) U Benzodiazepines Scrn (Neg) Ur Cocaine Metabolite (Neg) U Marijuana (THC) Screen (Neg) U Marijuana THC Carboxy Ethyl Alcohol mg/dL (0-3) mg/dl
[2018-10-16] MEDS: MoRPHine SULFATE 2 MG/ML CARP IV PRN ×2 (11:51→17:17)
--- NOTE | 2018-10-16 15:43 | Hospitalist Progress Note ---
Date of Service October 16, 2018 Assessment & Plan (1) Epigastric abdominal pain: Epigastric pain: Pt is a 23 y/o female w ongoing ETOH abuse, marijuana uses, who presented with epigastric abdominal pain - Trend LFTs - Monitor INR - ETOH Withdrawal protocol -obtain acetaminophen level -Gastroenterology service ordered MRCP History of alcohol abuse Alcohol withdrawal -gabapentin alcohol withdrawal protocol does not appear to be very effective -will switch to ativan and librirum Hepatic steatosis -as seen on last admission CT abdomen -likely related to ETOH use Lactic acidosis present on admission -lactic acid downtrended after IV fluids Thrombocytopenia -Chronic, likely secondary to alcoholism -No signs of bleeding Neutropenia -noted that the absolute neutrophil count 0.67 K/ul on 09/27/18 -WBC and neutrophils increased by 09/28/18, HIV test which patient provided consent was negative Anxiety -ativan Subjective Patient seen and examined at bedside. cooperative and follows commands. has tremors of the left hand. has tongue fasiculations. patient is generally shaky. she is awake and alert. continues to have abdominal discomfort. no vomiting. no fever. no loss of consciusness Physical Exam Constitutional: + ill appearing Eyes: PERRL, conjunctivae normal, anicteric sclerae EOM intact bilaterally ENMT: external ear and nose normal, oropharynx normal Neck: trachea midline, no thyromegaly normal visual inspection Respiratory: normal respiratory effort, lungs clear to auscultation Cardiovascular: Rate/Rhythm: regular rate and regular rhythm Gastrointestinal (Abdomen): Inspection/Auscultation: abdomen normal to inspection and normal bowel sounds Percussion/Palpation: abdomen soft Musculoskeletal: Head/Neck/Chest: normocephalic and head atraumatic Neurologic: PERRL, EOMI, accommodation nl, no face palsy, no dysarthria CN's II-XI intact bilaterally Motor/Sensory: + tremor Psychiatric: Orientation: alert, oriented x 3 and cooperative Results & Data Vital Signs (Past 12 Hours) Vital Signs Temp Pulse Pulse Resp BP Pulse Ox 10/16/18 15:26 36.6 C 95 H 18 122/81 99 10/16/18 11:32 37.0 C 92 H 20 118/68 98 10/16/18 08:12 90 10/16/18 07:40 36.9 C 92 H 18 97/49 L 100
[2018-10-16] MEDS ORDERED: chlordiazePOXIDE ALCOHOL WITHDRAWL 25MG PO STA (15:50)
[2018-10-16] MEDS ORDERED: LORAZEPAM 3MG IV ACTIVE PROTOCOL IV PRN (16:00)
[2018-10-16] MEDS ORDERED: LORAZEPAM 2MG IV ACTIVE PROTOCOL IV PRN (16:00)
[2018-10-16] MEDS ORDERED: ATIVAN IV ALCOHOL WITHDRAWL IV SCH (16:00)
[2018-10-16 16:14] LABS: BUN Creatinine Ratio 4.6 (10-20); Blood Urea Nitrogen 3 mg/dl (7-18); Calcium 7.9 mg/dl (8.5-10.1); Carbon Dioxide 25 mmol/L (21-32); Chloride 98 mmol/L (98-107); Creatinine Clr Calc Pharmacy 128.5 ml/min; Est GFR (African American) > 150.0; Est GFR (Non-African American) 129.6; Glucose 61 mg/dl (70-99); Potassium 3.5 mmol/L (3.5-5.1); Sodium 133 mmol/L (136-145)
[2018-10-16] MEDS ORDERED: chlordiazePOXIDE HCl 25 MG CAP PO ONE ×2 (16:45→16:51)
[2018-10-16] MEDS: chlordiazePOXIDE HCl 25 MG CAP PO SCH ×2 (17:09→22:19)
--- NOTE | 2018-10-16 18:34 | Magnetic Resonance Report ---
MR MRCP HISTORY: upper abd pain, nausea, vomiting, elevate lft TECHNIQUE: MRCP of the abdomen was performed according to standard department protocol without the us e of contrast. COMPARISON STUDY: Abdomen and pelvis CT 09/24/2018. FINDINGS: The lung bases are clear. There is an 8 mm T2 hyperintense lesion within the right hepatic lobe. The spleen, adrenal glands, and kidneys are unremarkable. The main portal vein and splenic vein are patent. Normal gallbladder. No gallstones. The common bile duct is normal in course and caliber measuring up to 4 mm. No filling defects within the common bile duct. The main pancreatic duct is not well-visualized but does not appear dilated. Mild edema within the pancreatic head with trace peripa ncreatic fluid. This also trace fluid surrounding the second and third portions of the duodenum. Ther efore, this is consistent with acute pancreatitis. The intrahepatic bile ducts and proximal common he patic duct near the bifurcation have a slightly beaded appearance. IMPRESSION: 1. Acute pancreatitis involving the pancreatic head with mild peripancreatic edema. 2. Normal caliber common bile duct. No filling defects within the common bile duct to suggest a stone . 3. The intrahepatic bile ducts and proximal common hepatic duct near the bifurcation have a slightly beaded appearance. Therefore, this raises the possibility of primary sclerosing cholangitis. Electronically signed by: Sadiq Pace M.D. 10/16/2018 6:33 PM
[2018-10-16] MEDS: LACTATED RINGER'S 1,000 ML IV SCH (19:41)
[2018-10-16] MEDS ORDERED: MoRPHine SULFATE 4 MG/ML 1 ML CARP\\VIAL ONE (21:00)
[2018-10-16] MEDS ORDERED: NON-FORMULARY MEDICATION (Melatonin 5 MG) PO SCH (21:00)
[2018-10-16] MEDS: MoRPHine SULFATE 4 MG/ML 1 ML CARP\\VIAL IV PRN (21:05)
[2018-10-17] MEDS: MoRPHine SULFATE 4 MG/ML 1 ML CARP\\VIAL IV PRN ×4 (00:40→23:27)
[2018-10-17] MEDS ORDERED: GABAPENTIN 600 MG TAB PO SCH (02:00)
[2018-10-17] MEDS: LACTATED RINGER'S 1,000 ML IV SCH ×4 (03:24→21:34)
[2018-10-17] MEDS: chlordiazePOXIDE HCl 25 MG CAP PO SCH ×4 (03:55→23:27)
[2018-10-17 05:38] LABS: Hematocrit (blood only) 35.3 % (37-47); Mean Corpuscular Volume 94.9 fL (80-100); RDW Coefficient of Variation 15.8 % (11.5-14.5); RDW Standard Deviation 55.2 fL (36.4-46.3); Red Blood Count 3.72 M/uL (4.2-5.4)
[2018-10-17 05:43] LABS: Mean Platelet Volume 8.7 fL (7.4-10.4); Platelet Count 33 K/uL (130-400)
[2018-10-17 06:08] LABS: Basophils # (auto) 0.01 K/uL (0-0.2); Basophils % (auto) 0.3 %; Eosinophils # (auto) 0.12 K/uL (0-0.5); Immature Granulocytes # (auto) 0.01 K/uL (0.00-0.02); Immature Granulocytes % (auto) 0.3 %; Lymphocytes # (auto) 1.34 K/uL (1.2-3.4); Lymphocytes % (auto) 44.7 %; Monocytes # (auto) 0.45 K/uL (0.11-0.59); Neutrophils # (auto) 1.07 K/uL (1.4-6.5); Neutrophils % (auto) 35.7 %; RBC Morphology Unremarkable
[2018-10-17 06:14] LABS: BUN Creatinine Ratio 3.6 (10-20); Calcium 8.8 mg/dl (8.5-10.1); Est GFR (African American) 148.5; Est GFR (Non-African American) 128.1; Magnesium 1.6 mg/dl (1.8-2.4); Potassium 3.3 mmol/L (3.5-5.1)
[2018-10-17] MEDS ORDERED: POTASSIUM CHLORIDE 20 MEQ/15 ML UDC PO STA (07:30)
[2018-10-17] MEDS: LORAZEPAM 1MG IV ACTIVE PROTOCOL IV PRN (07:39)
[2018-10-17] MEDS ORDERED: POTASSIUM CHLORIDE / WTR 10 MEQ/100 ML PLCT IV ONE (08:00)
[2018-10-17] MEDS: MAGNESIUM SULFATE / D5W 1 GM/100 ML BAG IV SCH ×3 (08:14→10:32)
[2018-10-17] MEDS: THIAMINE HCL 100 MG in SYRINGE 9 ML IV SCH (08:24)
[2018-10-17] MEDS: CHOLECALCIFEROL 1,000 UNITS TAB PO SCH (08:24)
[2018-10-17] MEDS: PANTOprazole 40 MG TAB PO SCH (08:24)
[2018-10-17] MEDS: MULTIVITAMIN TAB PO SCH (08:24)
[2018-10-17] MEDS: MAGNESIUM OXIDE 400 MG TAB PO SCH (08:25)
[2018-10-17] MEDS: VITAMIN B COMPLEX TAB PO SCH (08:25)
--- NOTE | 2018-10-17 08:28 | Hospitalist Progress Note ---
Date of Service October 17, 2018 Assessment & Plan (1) Epigastric abdominal pain: Epigastric pain secondary to Acute pancreatitis Pt is a 23 y/o female w ongoing ETOH abuse, marijuana uses, who presented with epigastric abdominal pain MRCP 10/16/18 1. Acute pancreatitis involving the pancreatic head with mild peripancreatic edema. 2. Normal caliber common bile duct. No filling defects within the common bile duct to suggest a stone. 3. The intrahepatic bile ducts and proximal common hepatic duct near the bifurcation have a slightly beaded appearance. Therefore, this raises the possibility of primary sclerosing cholangitis. -abdominal pain likely due to acute pancreatitis continue NPO and put on lactated ringers 150 cc/hr for acute pancreatitis -am concerned about possibility of primary sclerosing cholangitis and have notified Gastroenterology team on 10/16/18 to recall them to assist with either confirming or ruling out primary sclerosing cholangitis History of alcohol abuse Alcohol withdrawal -gabapentin alcohol withdrawal protocol does not appear to be very effective on 10/16/18 and patient was switched to switch to ativan and librirum protocols -continue telemetry monitoring Hepatic steatosis -as seen on last admission CT abdomen -likely related to ETOH use Lactic acidosis present on admission -lactic acid downtrended after IV fluids Hypokalemia Hypomagnesemia -replete serum potassium to target serum potassium of 4 - give oral and IV potassium -replete serum magnesium to target magnesium of 2 - give oral and IV magnesium Thrombocytopenia -Chronic, likely secondary to alcoholism -No signs of bleeding Neutropenia -noted that the absolute neutrophil count 0.67 K/ul on 09/27/18 -WBC and neutrophils increased by 09/28/18, HIV test which patient provided consent was negative -no fevers -continue to follow WBC counts and neutrophils Anxiety -ativan prn DVT ppx:SCDs, encourage ambulation Full Code Subjective Patient sleeping today this AM. she was arousable at bedside and followed commands to take deep breaths and for physician to check the heart,lungs, abdomen while she laid to the side. She moved and laid on her back for physician to check if any changes to the legs. No leg edema noted. Discussed with patient of MRCP showing acute pancreatitis and that she should expect the GI team to talk with her for other potential unusual findings. Patient did not seem to acknowledge the physician. Nurse at the bedside and to see if patient can take oral electrolytes when she is more awake. Physical Exam Constitutional: WD/WN, vitals as above ENMT: external ear and nose normal, oropharynx normal Neck: trachea midline, no thyromegaly normal visual inspection Respiratory: normal respiratory effort, lungs clear to auscultation Cardiovascular: Rate/Rhythm: regular rate and regular rhythm Gastrointestinal (Abdomen): Inspection/Auscultation: abdomen normal to inspection and normal bowel sounds Percussion/Palpation: abdomen soft Musculoskeletal: Head/Neck/Chest: normocephalic and head atraumatic Neurologic: PERRL, EOMI, accommodation nl, no face palsy, no dysarthria Psychiatric: Orientation: alert, oriented x 3 and cooperative Results & Data Vital Signs (Past 12 Hours) Vital Signs Temp Pulse Pulse Resp BP Pulse Ox 10/17/18 07:12 36.8 C 78 18 111/69 98 10/17/18 03:26 36.8 C 90 18 123/79 100 10/16/18 23:25 86 10/16/18 23:01 36.9 C 93 H 19 133/94 98 10/16/18 21:28 86
[2018-10-17 08:31] LABS: Albumin Level 3.6 gm/dl (3.4-5.0); Bilirubin Direct 0.3 mg/dl (0-0.2); Total Protein 6.8 gm/dl (6.4-8.2)
--- NOTE | 2018-10-17 10:56 | Gastroenterology Progress Note ---
Date of Service October 17, 2018 Assessment & Plan (1) Epigastric abdominal pain: 23 year old female admitted for ETOH detox - GI asked to evaluate for upper abdominal pain. She has had persistent epigastric pain, mild nausea w/o evidence of GIB. Her lipase is non-elevated, no abd imaging this admission. Her AST/ALT are elevated again in comparison to May labs. She does have mild tremors on examination but is awake, alert and oriented. MRCP completed yesterday w/ evidence of acute pancreatitis involving the pancreatic head with mild peripancreatic edema w/o evidence of filling defects to suggest a stone. There was noted to be a beaded appearance to the hepatic duct, concerning for primary sclerosing cholangitis. - Trend LFTs - Monitor INR - ETOH Withdrawal protocol - Treat the pancreatitis w/ LR, antiemetics PRN, analgesia PRN - Will add MASON, AMA, ASMA - Will need repeat MR imaging w/ and w/o contrast once inflammation from pancreatitis resolves to better eval biliary tree - Pending results will discuss if EUS w/ liver biopsy is indicated (MR can be diagnostic of PSC) - OP hepatology follow up - Will need liver serology if LFTs persistently elevated - Strict ETOH cessation was recommended - She notes she is moving and plans to try inpatient program at that time - No current plan for endoscopy, would await until she is more stable from a withdrawal standpoint She will need OP GI procedures and hepatology follow up but notes that she may move this month. She was encouraged to keep appts locally if she stays or establish where she moves. Thank you for allowing us to participate in the care of this patient. Please call with any acute changes, questions or concerns. Harini rivera see addendum below with additional recommendation from my supervising physician. Supervising Physician Co-Signing Physician Notes Late entry: I have seen and examined the patient with DANISH Camacho on 10/17. Her note reflects our findings. Subjective Pt was seen and evaluated, chart reviewed. MRCP w/ evidence of acute pancreatitis, concerning for PSC as well. No family history of this. No family history of liver disease. No family history of IBD. Today, mild abd pain. No nausea, vomiting. MRCP: Acute pancreatitis involving the pancreatic head with mild peripancreatic edema.Normal caliber common bile duct. No filling defects within the common bile duct to suggest a stone. The intrahepatic bile ducts and proximal common hepatic duct near the bifurcation have a slightly beaded appearance. Therefore, this raises the possibility of primary sclerosing cholangitis. Review of Systems Constitutional: no fever and no chills Respiratory: no cough, no chest congestion and no dyspnea Cardiovascular: no chest pain, no chest pain at rest and no dyspnea Gastrointestinal: + abdominal pain; no belching, no heartburn, no nausea, no vomiting, no blood in stools and no melena Physical Exam Constitutional: WD/WN, vitals as above Neck: trachea midline Respiratory: normal respiratory effort, lungs clear to auscultation Cardiovascular: RRR, no murmur, no edema Gastrointestinal (Abdomen): Inspection/Auscultation: normal bowel sounds Percussion/Palpation: + abdomen tender and abdomen soft; no guarding and abdomen not rigid Skin: no rashes, warm and dry Results & Data Vital Signs (Past 12 Hours) Vital Signs Temp Pulse Pulse Resp BP Pulse Ox 10/17/18 07:12 36.8 C 78 18 111/69 98 10/17/18 03:26 36.8 C 90 18 123/79 100 10/16/18 23:25 86 10/16/18 23:01 36.9 C 93 H 19 133/94 98
[2018-10-17] MEDS: ONDANSETRON INJ 2 MG/ML 2 ML VIAL IV PRN (20:21)
[2018-10-17] MEDS ORDERED: POTASSIUM CHLORIDE 10 MEQ TABCR PO STA (22:27)
[2018-10-18] MEDS: LACTATED RINGER'S 1,000 ML IV SCH ×3 (04:09→17:48)
[2018-10-18] MEDS: MoRPHine SULFATE 4 MG/ML 1 ML CARP\\VIAL IV PRN ×6 (04:18→22:28)
[2018-10-18] MEDS: LORAZEPAM 1MG IV ACTIVE PROTOCOL IV PRN ×3 (04:37→23:47)
[2018-10-18] MEDS: OXYCODONE/ACETAMINOPHEN 5mg/325mg TAB PO PRN (05:53)
[2018-10-18] MEDS ORDERED: GABAPENTIN 600 MG TAB PO SCH (06:00)
[2018-10-18 07:53] LABS: Alanine Aminotransferase 104 U/L (12-78); Albumin Level 3.4 gm/dl (3.4-5.0); Aspartate Aminotransferase 110 U/L (15-37); BUN Creatinine Ratio 3.6 (10-20); Blood Urea Nitrogen 2 mg/dl (7-18); Calcium 9.2 mg/dl (8.5-10.1); Carbon Dioxide 25 mmol/L (21-32); Chloride 101 mmol/L (98-107); Creatinine Clr Calc Pharmacy 150.2 ml/min; Est GFR (African American) > 150.0; Est GFR (Non-African American) 137.3; Glucose 70 mg/dl (70-99); Magnesium 1.9 mg/dl (1.8-2.4); Potassium 3.7 mmol/L (3.5-5.1); Sodium 137 mmol/L (136-145)
[2018-10-18 07:56] LABS: Albumin Globulin Ratio 1.1 (0.9-2); Alkaline Phosphatase 71 U/L (45-117); Bilirubin,Total 0.8 mg/dl (0.2-1); Phosphorus 2.8 mg/dl (2.5-4.9); Total Protein 6.4 gm/dl (6.4-8.2)
[2018-10-18 07:59] LABS: Hematocrit (blood only) 34.7 % (37-47); Hemoglobin 11.8 g/dL (12.0-16.0); Mean Corpuscular Volume 94.8 fL (80-100); Mean Platelet Volume 10.5 fL (7.4-10.4); Platelet Count 35 K/uL (130-400); RDW Coefficient of Variation 15.4 % (11.5-14.5); RDW Standard Deviation 53.8 fL (36.4-46.3); Red Blood Count 3.66 M/uL (4.2-5.4); White Blood Count 2.48 K/uL (4.8-10.8)
[2018-10-18 08:03] LABS: Basophils # (auto) 0.01 K/uL (0-0.2); Basophils % (auto) 0.4 %; Eosinophils # (auto) 0.13 K/uL (0-0.5); Eosinophils % (auto) 5.2 %; Immature Granulocytes # (auto) 0.01 K/uL (0.00-0.02); Immature Granulocytes % (auto) 0.4 %; Lymphocytes # (auto) 0.99 K/uL (1.2-3.4); Lymphocytes % (auto) 39.9 %; Monocytes # (auto) 0.43 K/uL (0.11-0.59); Monocytes % (auto) 17.3 %; Neutrophils # (auto) 0.91 K/uL (1.4-6.5); Neutrophils % (auto) 36.8 %
[2018-10-18] MEDS: chlordiazePOXIDE HCl 25 MG CAP PO SCH (08:27)
[2018-10-18] MEDS: PANTOprazole 40 MG TAB PO SCH (08:28)
[2018-10-18] MEDS: VITAMIN B COMPLEX TAB PO SCH (08:28)
[2018-10-18] MEDS: CHOLECALCIFEROL 1,000 UNITS TAB PO SCH (08:28)
[2018-10-18] MEDS: MULTIVITAMIN TAB PO SCH (08:28)
[2018-10-18] MEDS: THIAMINE HCL 100 MG in SYRINGE 9 ML IV SCH (08:28)
[2018-10-18] MEDS: MAGNESIUM OXIDE 400 MG TAB PO SCH (08:28)
[2018-10-18] MEDS: ONDANSETRON INJ 2 MG/ML 2 ML VIAL IV PRN ×2 (08:34→19:52)
--- NOTE | 2018-10-18 17:21 | Hospitalist Progress Note ---
Date of Service October 18, 2018 Assessment & Plan (1) Epigastric abdominal pain: Epigastric pain secondary to Acute pancreatitis Pt is a 23 y/o female w ongoing ETOH abuse, marijuana uses, who presented with epigastric abdominal pain MRCP 10/16/18 1. Acute pancreatitis involving the pancreatic head with mild peripancreatic edema. 2. Normal caliber common bile duct. No filling defects within the common bile duct to suggest a stone. 3. The intrahepatic bile ducts and proximal common hepatic duct near the bifurcation have a slightly beaded appearance. Therefore, this raises the possibility of primary sclerosing cholangitis. - pain improving continue LR continue clear liquids monitor - appreciate GI recs Possible Primary Sclerosing Cholangitis seen on MRCP please refer to #1 GI consulted, serologies ordered: please follow up plan for outpatient repeat MRI and EUS will need close GI ff up History of alcohol abuse Alcohol withdrawal -gabapentin alcohol withdrawal protocol does not appear to be very effective on 10/16/18 and patient was switched to switch to ativan and librirum protocols - reports shaking and sweats overnight - continue Librium taper Ativan PRN Alc With Protocol Pancytopenia from Alcoholism? underlying Alcoholic Liver Disease Peripheral smear ordered: The findings are that of a pancytopenia. No overt changes of myelodysplasia or hemolysis are noted. Liver disease, in particular cirrhosis, can result in pancytopenia. no signs of bleeding, shortness of breath, infection HIV test which patient provided consent was negative monitor Hepatic steatosis -as seen on last admission CT abdomen -likely related to ETOH use Lactic acidosis present on admission -lactic acid downtrended after IV fluids Hypokalemia Hypomagnesemia - resolved Anxiety -ativan prn reports this is well managed denies depression, suicidal ideations DVT ppx:SCDs, encourage ambulation Full Code Disposition discussed with patient re: inpatient rehab she declines placement to inpatient rehab Subjective ff up for pancreatitis seen resting in bed, comfortable, watching TV states epigastric pain is improving daily- moderate today had nausea this AM no BM, (+) flatus no fever/chills, no SOB, chest pain, bleeding denies other symptoms seen with RN at bedside thru whole encounter Review of Systems Review of Systems: All systems reviewed & are unremarkable except as noted in HPI & below Physical Exam Physical Exam: General- oriented x 3, not in distress, speaks in sentences with no effort or accessory muscle use Eyes- anicteric Neck- no JVD Lungs- clear breath sounds bilaterally, no rales/wheezes Heart- normal rate, regular rhythm; no murmurs Abdomen- normal bowel sounds, nondistended, soft, (+) mild tenderness epigastric region Extremities- no pretibial edema, no calf tenderness Neuro- alert, oriented x 3; no gross focal neurologic deficits Skin- warm & dry Results & Data Vital Signs (Past 12 Hours) Vital Signs Temp Pulse Pulse Resp BP Pulse Ox 10/18/18 16:00 84 10/18/18 15:29 36.4 C L 84 18 128/80 99 10/18/18 11:03 36.9 C 84 20 118/83 100 10/18/18 07:56 36.7 C 87 18 123/92 100 10/18/18 06:18 80 Laboratory Results Laboratory Results - last 24 hr 10/16/18 10/18/18 10/18/18 00:30 06:58 06:58 WBC 2.48 L RBC 3.66 L Hgb 11.8 L Hct 34.7 L MCV 94.8 MCH 32.2 MCHC 34.0 RDW Std Deviation 53.8 H RDW Coeff of Nayana 15.4 H Plt Count 35 L MPV 10.5 H Immature Gran % (Auto) 0.4 Neut % (Auto) 36.8 Lymph % (Auto) 39.9 [place] % (Auto) 17.3 Eos % (Auto) 5.2 Baso % (Auto) 0.4 Immature Gran # (Auto) 0.01 Neut # (Auto) 0.91 L* Lymph # (Auto) 0.99 L [place] # (Auto) 0.43 Eos # (Auto) 0.13 Baso # (Auto) 0.01 Peripher Smr Path Cons Sodium Potassium Chloride Carbon Dioxide Anion Gap BUN Creatinine Est Cr Clr Drug Dosing Est GFR ( Amer) Est GFR (Non-Af Amer) BUN/Creatinine Ratio Glucose Calcium Phosphorus Magnesium Total Bilirubin AST ALT Alkaline Phosphatase Total Protein Albumin Globulin Albumin/Globulin Ratio U Marijuana THC Carboxy 924 A MASON Screen Pending Anti-Mitochondrial Ab Pending Anti-Smooth Muscle Ab Pending 10/18/18 10/18/18 06:58 06:58 WBC RBC Hgb Hct MCV MCH MCHC RDW Std Deviation RDW Coeff of Nayana Plt Count MPV Immature Gran % (Auto) Neut % (Auto) Lymph % (Auto) [place] % (Auto) Eos % (Auto) Baso % (Auto) Immature Gran # (Auto) Neut # (Auto) Lymph # (Auto) [place] # (Auto) Eos # (Auto) Baso # (Auto) Peripher Smr Path Cons Cancelled Sodium 137 Potassium 3.7 Chloride 101 Carbon Dioxide 25 Anion Gap 10.0 BUN 2 L Creatinine 0.47 L Est Cr Clr Drug Dosing 150.2 Est GFR ( Amer) > 150.0 Est GFR (Non-Af Amer) 137.3 BUN/Creatinine Ratio 3.6 L Glucose 70 Calcium 9.2 Phosphorus 2.8 Magnesium 1.9 Total Bilirubin 0.8 AST 110 H ALT 104 H Alkaline Phosphatase 71 Total Protein 6.4 Albumin 3.4 Globulin 3.0 Albumin/Globulin Ratio 1.1 U Marijuana THC Carboxy MASON Screen Anti-Mitochondrial Ab Anti-Smooth Muscle Ab Diagnostic Findings Laboratory Results - last 24 hr 10/16/18 10/18/18 10/18/18 00:30 06:58 06:58 WBC 2.48 L RBC 3.66 L Hgb 11.8 L Hct 34.7 L MCV 94.8 MCH 32.2 MCHC 34.0 RDW Std Deviation 53.8 H RDW Coeff of Nayana 15.4 H Plt Count 35 L MPV 10.5 H Immature Gran % (Auto) 0.4 Neut % (Auto) 36.8 Lymph % (Auto) 39.9 [place] % (Auto) 17.3 Eos % (Auto) 5.2 Baso % (Auto) 0.4 Immature Gran # (Auto) 0.01 Neut # (Auto) 0.91 L* Lymph # (Auto) 0.99 L [place] # (Auto) 0.43 Eos # (Auto) 0.13 Baso # (Auto) 0.01 Peripher Smr Path Cons Sodium Potassium Chloride Carbon Dioxide Anion Gap BUN Creatinine Est Cr Clr Drug Dosing Est GFR ( Amer) Est GFR (Non-Af Amer) BUN/Creatinine Ratio Glucose Calcium Phosphorus Magnesium Total Bilirubin AST ALT Alkaline Phosphatase Total Protein Albumin Globulin Albumin/Globulin Ratio U Marijuana THC Carboxy 924 A MASON Screen Pending Anti-Mitochondrial Ab Pending Anti-Smooth Muscle Ab Pending 10/18/18 10/18/18 06:58 06:58 WBC RBC Hgb Hct MCV MCH MCHC RDW Std Deviation RDW Coeff of Nayana Plt Count MPV Immature Gran % (Auto) Neut % (Auto) Lymph % (Auto) [place] % (Auto) Eos % (Auto) Baso % (Auto) Immature Gran # (Auto) Neut # (Auto) Lymph # (Auto) [place] # (Auto) Eos # (Auto) Baso # (Auto) Peripher Smr Path Cons Cancelled Sodium 137 Potassium 3.7 Chloride 101 Carbon Dioxide 25 Anion Gap 10.0 BUN 2 L Creatinine 0.47 L Est Cr Clr Drug Dosing 150.2 Est GFR ( Amer) > 150.0 Est GFR (Non-Af Amer) 137.3 BUN/Creatinine Ratio 3.6 L Glucose 70 Calcium 9.2 Phosphorus 2.8 Magnesium 1.9 Total Bilirubin 0.8 AST 110 H ALT 104 H Alkaline Phosphatase 71 Total Protein 6.4 Albumin 3.4 Globulin 3.0 Albumin/Globulin Ratio 1.1 U Marijuana THC Carboxy MASON Screen Anti-Mitochondrial Ab Anti-Smooth Muscle Ab
[2018-10-19] MEDS: LACTATED RINGER'S 1,000 ML IV SCH ×3 (00:12→13:08)
[2018-10-19] MEDS: OXYCODONE/ACETAMINOPHEN 5mg/325mg TAB PO PRN ×4 (00:12→20:34)
[2018-10-19] MEDS: MoRPHine SULFATE 4 MG/ML 1 ML CARP\\VIAL IV PRN ×4 (03:50→21:30)
[2018-10-19] MEDS: THIAMINE HCL 100 MG in SYRINGE 9 ML IV SCH (08:23)
[2018-10-19] MEDS: MAGNESIUM OXIDE 400 MG TAB PO SCH (08:23)
[2018-10-19] MEDS: CHOLECALCIFEROL 1,000 UNITS TAB PO SCH (08:23)
[2018-10-19] MEDS: MULTIVITAMIN TAB PO SCH (08:23)
[2018-10-19] MEDS: VITAMIN B COMPLEX TAB PO SCH (08:23)
[2018-10-19] MEDS: PANTOprazole 40 MG TAB PO SCH (08:23)
[2018-10-19 11:45] LABS: Hematocrit (blood only) 35.9 % (37-47); Hemoglobin 12.1 g/dL (12.0-16.0); Mean Corpuscular Hgb Conc 33.7 g/dL (32-36); Mean Corpuscular Volume 95.7 fL (80-100); RDW Coefficient of Variation 15.4 % (11.5-14.5); Red Blood Count 3.75 M/uL (4.2-5.4); White Blood Count 2.47 K/uL (4.8-10.8)
[2018-10-19 11:47] LABS: Mean Platelet Volume 9.3 fL (7.4-10.4); Platelet Count 38 K/uL (130-400)
[2018-10-19 12:18] LABS: BUN Creatinine Ratio 3.3 (10-20); Blood Urea Nitrogen 2 mg/dl (7-18); Calcium 9.3 mg/dl (8.5-10.1); Carbon Dioxide 30 mmol/L (21-32); Chloride 104 mmol/L (98-107); Creatinine Clr Calc Pharmacy 133.2 ml/min; Est GFR (African American) > 150.0; Glucose 85 mg/dl (70-99); Potassium 3.9 mmol/L (3.5-5.1); Sodium 139 mmol/L (136-145)
[2018-10-19 12:31] LABS: Basophils # (auto) 0.01 K/uL (0-0.2); Basophils % (auto) 0.4 %; Eosinophils # (auto) 0.05 K/uL (0-0.5); Immature Granulocytes # (auto) 0.01 K/uL (0.00-0.02); Immature Granulocytes % (auto) 0.4 %; Lymphocytes # (auto) 0.74 K/uL (1.2-3.4); Monocytes # (auto) 0.36 K/uL (0.11-0.59); Monocytes % (auto) 14.6 %; Neutrophils % (auto) 52.6 %
[2018-10-19 16:56] LABS: Anti Nuclear Antibody Screen NEGATIVE (NEGATIVE)
[2018-10-19] MEDS ORDERED: GABAPENTIN 600 MG TAB PO SCH (18:00)
[2018-10-19] MEDS: chlordiazePOXIDE HCl 5 MG CAP PO SCH (19:44)
[2018-10-19] MEDS ORDERED: Nursing to Pharmacy Communication ONE (19:50)
[2018-10-19] MEDS ORDERED: hydrOXYzine HCl 10 MG TAB PO PRN (22:33)
--- NOTE | 2018-10-19 23:10 | Hospitalist Progress Note ---
Date of Service Delayed entry, date of service noted below October 19, 2018 Assessment & Plan (1) Epigastric abdominal pain: Epigastric pain secondary to Acute pancreatitis Pt is a 23 y/o female w ongoing ETOH abuse, marijuana uses, who presented with epigastric abdominal pain MRCP 10/16/18 1. Acute pancreatitis involving the pancreatic head with mild peripancreatic edema. 2. Normal caliber common bile duct. No filling defects within the common bile duct to suggest a stone. 3. The intrahepatic bile ducts and proximal common hepatic duct near the bifurcation have a slightly beaded appearance. Therefore, this raises the possibility of primary sclerosing cholangitis. -Patient continues to improve continue LR Soft diet DC IV morphine monitor - appreciate GI recs Possible Primary Sclerosing Cholangitis seen on MRCP please refer to #1 GI consulted, serologies ordered: please follow up plan for outpatient repeat MRI and EUS will need close GI ff up History of alcohol abuse Alcohol withdrawal -gabapentin alcohol withdrawal protocol does not appear to be very effective on 10/16/18 and patient was switched to switch to ativan and librirum protocols No signs and symptoms of withdrawal -Completed Librium taper Ativan PRN Alc With Protocol Pancytopenia from Alcoholism? underlying Alcoholic Liver Disease Peripheral smear ordered: The findings are that of a pancytopenia. No overt changes of myelodysplasia or hemolysis are noted. Liver disease, in particular cirrhosis, can result in pancytopenia. no signs of bleeding, shortness of breath, infection HIV test which patient provided consent was negative monitor Hepatic steatosis -as seen on last admission CT abdomen -likely related to ETOH use Lactic acidosis present on admission -lactic acid downtrended after IV fluids Hypokalemia Hypomagnesemia - resolved Anxiety -ativan prn reports this is well managed denies depression, suicidal ideations DVT ppx:SCDs, encourage ambulation Full Code Disposition discussed with patient re: inpatient rehab she declines placement to inpatient rehab Subjective Follow-up with pancreatitis, alcoholism next Seen with ANNETTE Bonner being at the bedside throughout the whole encounter Sitting up in bed, comfortable, not in distress Reports abdominal pain and back pain continues to improve pain, requesting to advance her diet Denies tremors, sweats, hallucinations No other symptoms Review of Systems Review of Systems: All systems reviewed & are unremarkable except as noted in HPI & below Physical Exam Physical Exam: General- oriented x 3, not in distress, speaks in sentences with no effort or accessory muscle use Eyes- anicteric Neck- no JVD Lungs-clear BS bilaterally, no crackles or wheezing Heart- normal rate, regular rhythm; no murmurs Abdomen- normal bowel sounds, nondistended, soft, nontender Extremities- no pretibial edema, no calf tenderness Neuro- alert, oriented x 3; no gross focal neurologic deficits Skin- warm & dry Results & Data Vital Signs (Past 12 Hours) Vital Signs Temp Pulse Pulse Resp BP BP Pulse Ox 10/19/18 22:27 36.5 C 97 H 20 132/95 100 10/19/18 16:00 36.7 C 87 20 131/89 100 10/19/18 15:53 36.7 C 77 18 120/83 100 10/19/18 14:47 79 10/19/18 12:00 36.7 C 82 17 121/97 100 Laboratory Results Laboratory Results - last 24 hr 10/16/18 10/20/18 10/20/18 06:30 15:48 15:48 WBC 2.72 L RBC 3.70 L Hgb 12.0 Hct 35.4 L MCV 95.7 MCH 32.4 MCHC 33.9 RDW Std Deviation 54.3 H RDW Coeff of Nayana 15.6 H Plt Count 49 L MPV 9.5 Immature Gran % (Auto) 0.4 Neut % (Auto) 52.6 Lymph % (Auto) 26.8 [place] % (Auto) 18.4 Eos % (Auto) 1.8 Baso % (Auto) 0.0 Immature Gran # (Auto) 0.01 Neut # (Auto) 1.43 Lymph # (Auto) 0.73 L [place] # (Auto) 0.50 Eos # (Auto) 0.05 Baso # (Auto) 0.00 Sodium 141 Potassium 3.6 Chloride 106 Carbon Dioxide 29 Anion Gap 6.0 BUN 3 L Creatinine 0.62 Est Cr Clr Drug Dosing 113.9 Est GFR ( Amer) 145.3 Est GFR (Non-Af Amer) 125.3 BUN/Creatinine Ratio 4.0 L Glucose 135 H Calcium 9.9 Ur [place] Porphobilinogen 0.0 U Porphobilinogen Intrp see note Ur Total Porphyrins 141.9 Random Uroporphyrins I 26.7 H Random Uroporphyrin III 10.5 H U Rdm Heptacarboxylpor 5.3 H U Rndm Hexacarboxylpor SEE BELOW U Rdm Pentacarboxylpor 3.4 U Random Coproporphyr I 53.7 H U Rndm Coproporphyr III 42.3 Ur Porphyrins Interp SEE BELOW
[2018-10-20] MEDS: LACTATED RINGER'S 1,000 ML IV SCH ×2 (00:08→12:49)
[2018-10-20] MEDS: MoRPHine SULFATE 4 MG/ML 1 ML CARP\\VIAL IV PRN ×2 (01:18→06:08)
[2018-10-20] MEDS: MULTIVITAMIN TAB PO SCH (07:38)
[2018-10-20] MEDS: MAGNESIUM OXIDE 400 MG TAB PO SCH (07:38)
[2018-10-20] MEDS: VITAMIN B COMPLEX TAB PO SCH (07:38)
[2018-10-20] MEDS: CHOLECALCIFEROL 1,000 UNITS TAB PO SCH (07:38)
[2018-10-20] MEDS: PANTOprazole 40 MG TAB PO SCH (07:38)
[2018-10-20] MEDS: THIAMINE HCL 100 MG in SYRINGE 9 ML IV SCH (07:39)
[2018-10-20] MEDS: chlordiazePOXIDE HCl 5 MG CAP PO SCH (07:43)
[2018-10-20] MEDS ORDERED: HYDROmorphone INJ 0.5 MG/0.5 ML SYR IV STA (07:48)
[2018-10-20] MEDS ORDERED: HYDROmorphone INJ 0.5 MG/0.5 ML SYR ONE (07:51)
[2018-10-20] MEDS: OXYCODONE/ACETAMINOPHEN 5mg/325mg TAB PO PRN ×3 (12:44→21:19)
[2018-10-20] MEDS: ONDANSETRON INJ 2 MG/ML 2 ML VIAL IV PRN ×2 (12:45→21:19)
[2018-10-20 16:04] LABS: Hematocrit (blood only) 35.4 % (37-47); Mean Corpuscular Hgb Conc 33.9 g/dL (32-36); Mean Corpuscular Volume 95.7 fL (80-100); RDW Coefficient of Variation 15.6 % (11.5-14.5); RDW Standard Deviation 54.3 fL (36.4-46.3); White Blood Count 2.72 K/uL (4.8-10.8)
[2018-10-20 16:15] LABS: Mean Platelet Volume 9.5 fL (7.4-10.4); Platelet Count 49 K/uL (130-400)
[2018-10-20 16:22] LABS: Eosinophils # (auto) 0.05 K/uL (0-0.5); Eosinophils % (auto) 1.8 %; Immature Granulocytes # (auto) 0.01 K/uL (0.00-0.02); Immature Granulocytes % (auto) 0.4 %; Lymphocytes # (auto) 0.73 K/uL (1.2-3.4); Lymphocytes % (auto) 26.8 %; Monocytes % (auto) 18.4 %; Neutrophils # (auto) 1.43 K/uL (1.4-6.5); Neutrophils % (auto) 52.6 %
[2018-10-20 16:23] LABS: Calcium 9.9 mg/dl (8.5-10.1); Creatinine Clr Calc Pharmacy 113.9 ml/min; Est GFR (African American) 145.3; Est GFR (Non-African American) 125.3; Potassium 3.6 mmol/L (3.5-5.1)
[2018-10-21] MEDS: OXYCODONE/ACETAMINOPHEN 5mg/325mg TAB PO PRN ×4 (00:56→13:37)
[2018-10-21 02:19] LABS: Coproporphyrins I Random Ur 53.7 (6.5-33.2); Coproporphyrins III Random Ur 42.3 (4.8-88.6); Heptacarboxylporphyrins Urine 5.3 (< OR = 3.4); Pentacarboxylporph Ur 3.4 (< OR = 4.1)
[2018-10-21] MEDS: LACTATED RINGER'S 1,000 ML IV SCH (04:32)
[2018-10-21] MEDS: VITAMIN B COMPLEX TAB PO SCH (08:46)
[2018-10-21] MEDS: CHOLECALCIFEROL 1,000 UNITS TAB PO SCH (08:46)
[2018-10-21] MEDS: THIAMINE HCL 100 MG in SYRINGE 9 ML IV SCH (08:46)
[2018-10-21] MEDS: MULTIVITAMIN TAB PO SCH (08:46)
[2018-10-21] MEDS: PANTOprazole 40 MG TAB PO SCH (08:46)
[2018-10-21] MEDS: MAGNESIUM OXIDE 400 MG TAB PO SCH (08:46)
--- NOTE | 2018-10-21 16:11 | Hospitalist Progress Note ---
Date of Service October 21, 2018 Subjective was paged by RN as patient wanted to leave, I said i will be up as soon as I can after I speak with another family member paged again as patient was upset as "her hydroxizine" has been stopped, informed RN to reassure patient that it is still on board went up to evaluate the patient ,but unfortunately patient left the floor with her boyfriend Results & Data Vital Signs (Past 12 Hours) Vital Signs Temp Pulse Resp BP BP Pulse Ox 10/21/18 15:02 36.7 C 91 H 18 132/90 98 10/21/18 07:35 36.5 C 101 H 18 112/76 100
--- NOTE | 2018-10-21 16:13 | Hospitalist Progress Note ---
Date of Service Delayed entry Date of service October 19, 2018 October 21, 2018 Assessment & Plan (1) Epigastric abdominal pain: Epigastric pain secondary to Acute pancreatitis Pt is a 23 y/o female w ongoing ETOH abuse, marijuana uses, who presented with epigastric abdominal pain MRCP 10/16/18 1. Acute pancreatitis involving the pancreatic head with mild peripancreatic edema. 2. Normal caliber common bile duct. No filling defects within the common bile duct to suggest a stone. 3. The intrahepatic bile ducts and proximal common hepatic duct near the bifurcation have a slightly beaded appearance. Therefore, this raises the possibility of primary sclerosing cholangitis. -Improving daily continue LR advance diet as tolerated monitor, transfer to med/surg - appreciate GI recs Possible Primary Sclerosing Cholangitis seen on MRCP please refer to #1 GI consulted, serologies ordered: please follow up plan for outpatient repeat MRI and EUS will need close GI ff up History of alcohol abuse Alcohol withdrawal -gabapentin alcohol withdrawal protocol does not appear to be very effective on 10/16/18 and patient was switched to switch to ativan and librirum protocols No signs and symptoms of withdrawal -placed on Librium taper Ativan PRN Alc With Protocol Pancytopenia from Alcoholism? underlying Alcoholic Liver Disease Peripheral smear ordered: The findings are that of a pancytopenia. No overt changes of myelodysplasia or hemolysis are noted. Liver disease, in particular cirrhosis, can result in pancytopenia. no signs of bleeding, shortness of breath, infection HIV test which patient provided consent was negative monitor Hepatic steatosis -as seen on last admission CT abdomen -likely related to ETOH use Lactic acidosis present on admission -lactic acid downtrended after IV fluids Hypokalemia Hypomagnesemia - resolved Anxiety -ativan prn reports this is well managed denies depression, suicidal ideations DVT ppx:SCDs, encourage ambulation Full Code Disposition discussed with patient re: inpatient rehab she declines placement to inpatient rehab Subjective Follow-up for acute pancreatitis Seen with RN at the bedside throughout whole encounter Seen sitting up in bed comfortable, watching TV In good spirits States she continues to feel better, still has some epigastric and back pain, well controlled by PRN analgesics No nausea or vomiting States mood is fine, has chronic anxiety which has not worsened, denies depres cande or suicidal ideations No other symptoms Review of Systems Review of Systems: All systems reviewed & are unremarkable except as noted in HPI & below Physical Exam Physical Exam: General- oriented x 3, not in distress, speaks in sentences with no effort or accessory muscle use Eyes- anicteric Neck- no JVD Lungs- clear BS BL no crackles, no wheezing, good air entry bilaterally Heart- normal rate, regular rhythm; no murmurs Abdomen- normal bowel sounds, nondistended, soft, very mild tenderness Extremities- no pretibial edema, no calf tenderness Neuro- alert, oriented x 3; no gross focal neurologic deficits Skin- warm & dry Results & Data Vital Signs (Past 12 Hours) Vital Signs Temp Pulse Resp BP BP Pulse Ox 10/21/18 15:02 36.7 C 91 H 18 132/90 98 10/21/18 07:35 36.5 C 101 H 18 112/76 100 Laboratory Results Laboratory Results - last 24 hr 10/16/18 06:30 Ur [place] Porphobilinogen 0.0 U Porphobilinogen Intrp see note Ur Total Porphyrins 141.9 Random Uroporphyrins I 26.7 H Random Uroporphyrin III 10.5 H U Rdm Heptacarboxylpor 5.3 H U Rndm Hexacarboxylpor SEE BELOW U Rdm Pentacarboxylpor 3.4 U Random Coproporphyr I 53.7 H U Rndm Coproporphyr III 42.3 Ur Porphyrins Interp SEE BELOW
--- NOTE | 2018-10-21 17:06 | Discharge Summary ---
Date of Service October 21, 2018 Admission HPI Per Admitting Provider CHIEF COMPLAINT: Abdominal pain, nausea, vomiting, alcoholism. HISTORY OF PRESENT ILLNESS: This is a 23-year-old female with past medical history significant for alcoholism, alcoholic pancreatitis, gastritis, presents with severe abdominal pain in the epigastric region radiating to back, also with nausea and vomiting. The patient was seen in the hospital on 09/24/2018 with a similar problem, alcohol intoxication and she improved and discharged to home. Followed up with PCP and there is plan for her to go permanently to [place] where her brother lives and also there is a plan for rehabilitation there, in end of September, but that did not happen as her brother was busy with his work. She got upset and she was drinking more. She says she was heavily drinking vodka and also tequila shots and today she tried to wean off and she got shaky and again she drank and developed severe epigastric pain and also with several episodes of nausea and vomiting. She came to the ER and she was also unstable on ambulation. Complains of some headaches, no blurred vision. No earache, no runny nose, no sore throat, no difficulty swallowing. Appetite is not good. She says she smokes marijuana. If she doesn't smoke' marijuana there is no appetite. Having chest pain after taking deep breath. No shortness of breath, has some cough, smokes 6 cigarettes every day. Normal bowel and bladder movements. No blood in the stools. No burning micturition. No blood in the urine. No swelling of the legs. No rash. In the ER again Alcohol level was 209, lactate was 3.6 and platelets was 60. ALLERGIES: AMINTAA. PAST MEDICAL HISTORY: As mentioned above. PAST SURGICAL HISTORY: D and C induced . MEDICATIONS: B complex, vitamin D daily, magnesium oxide 400 mg daily, melatonin 5 mg p.o. at bedtime, multivitamins with minerals 1 tablet daily, [place] 3 fish oil 1 capsule daily, Protonix 40 mg p.o. daily, vitamin E 400 units p.o. daily. FAMILY HISTORY: No significant family history on file. SOCIAL HISTORY: Smokes 6cigarettes per day. Alcohol: Heavy alcohol drinking. Marijuana daily. REVIEW OF SYMPTOMS: As per HPI. Rest of review of systems negative. Admission Exam Per Admitting Provider PHYSICAL EXAMINATION: GENERAL: The patient is moderate built, not in acute distress VITAL SIGNS: Temperature 36.7, pulse 95, respiratory rate 17, blood pressure 128/88, oxygen 98% room air. HEENT: No pallor, no icterus. Pupils equal, round, and reactive to light. NECK: No JVD, no neck masses. Supple. CARDIOVASCULAR: S1, S2 heard, regular rate and rhythm. No murmur or gallop. RESPIRATORY SYSTEM: Normal AP diameter. No accessory muscle use. No wheezing, no crackles. ABDOMEN: Soft, bowel sounds present. Epigastric tenderness present. Mild guarding, no rigidity. No distention. CENTRAL NERVOUS SYSTEM: Cranial nerves II through XII grossly intact. Nonfocal. EXTREMITIES: No edema, no erythema. Principal Diagnosis ACUTE PANCREATITIS Discharge Exam Not performed as patient eloped the hospital Discharge Data Allergies Allergy/AdvReac Type Severity Reaction Status Date / Time aminata Allergy Mild GUMS SWELL Verified 09/24/18 16:46 mushroom Allergy Mild GUMS SWELL Verified 10/19/18 17:46 Consultations 10/16/18 01:00 ED Decision to Admit Stat 10/16/18 03:50 Consult Case Management - Discharge Planning Routine 10/16/18 08:00 Consult Gastroenterology Routine Ordered Studies 10/16/18 13:03 MR MRCP Routine MR MRCP HISTORY: upper abd pain, nausea, vomiting, elevate lft TECHNIQUE: MRCP of the abdomen was performed according to standard department protocol without the use of contrast. COMPARISON STUDY: Abdomen and pelvis CT 09/24/2018. FINDINGS: The lung bases are clear. There is an 8 mm T2 hyperintense lesion within the right hepatic lobe. The spleen, adrenal glands, and kidneys are unremarkable. The main portal vein and splenic vein are patent. Normal gallbladder. No gallstones. The common bile duct is normal in course and caliber measuring up to 4 mm. No filling defects within the common bile duct. The main pancreatic duct is not well-visualized but does not appear dilated. Mild edema within the pancreatic head with trace peripancreatic fluid. This also trace flui d surrounding the second and third portions of the duodenum. Therefore, this is consistent with acute pancreatitis. The intrahepatic bile ducts and proximal common hepatic duct near the bifurcation have a slightly beaded appearance. IMPRESSION: 1. Acute pancreatitis involving the pancreatic head with mild peripancreatic edema. 2. Normal caliber common bile duct. No filling defects within the common bile duct to suggest a stone. 3. The intrahepatic bile ducts and proximal common hepatic duct near the bifurcation have a slightly beaded appearance. Therefore, this raises the possibility of primary sclerosing cholangitis. Hospital Course (1) Epigastric abdominal pain: Epigastric pain secondary to Acute pancreatitis Pt is a 23 y/o female w ongoing ETOH abuse, marijuana uses, who presented with epigastric abdominal pain MRCP 10/16/18 1. Acute pancreatitis involving the pancreatic head with mild peripancreatic edema. 2. Normal caliber common bile duct. No filling defects within the common bile duct to suggest a stone. 3. The intrahepatic bile ducts and proximal common hepatic duct near the bifurcation have a slightly beaded appearance. Therefore, this raises the possibility of primary sclerosing cholangitis. GI consulted Patient given vigorous lactated Ringer's IV Pain controlled with PRN analgesics Diet advance as tolerated Unfortunately patient eloped on 10/21/2018 will arrange for PCP and GI follow-up Possible Primary Sclerosing Cholangitis seen on MRCP please refer to #1 GI consulted, serologies ordered: please follow up plan for outpatient repeat MRI and EUS will need close GI ff up History of alcohol abuse Alcohol withdrawal -gabapentin alcohol withdrawal protocol does not appear to be very effective on 10/16/18 and patient was switched to switch to ativan and librirum protocols -placed on Librium taper: Withdrawal symptoms resolved Given Ativan PRN Pancytopenia from Alcoholism? underlying Alcoholic Liver Disease Peripheral smear ordered: The findings are that of a pancytopenia. No overt changes of myelodysplasia or h emolysis are noted. Liver disease, in particular cirrhosis, can result in pancytopenia. no signs of bleeding, shortness of breath, infection HIV test which patient provided consent was negative monitor Hepatic steatosis - as seen on last admission CT abdomen - likely related to ETOH use Lactic acidosis - present on admission - lactic acid downtrended after IV fluids Hypokalemia Hypomagnesemia - resolved Anxiety -ativan prn reports this is well managed denies depression, suicidal ideations DVT ppx:SCDs, encourage ambulation Full Code Disposition discussed with patient re: inpatient rehab she declined placement to inpatient rehab Will arrange PCP follow-up as well as GI clinic follow-up Total Time Total Time Spent Total Time Spent (In Minutes): <30 minutes Discharge Plan Discharge Items Patient Disposition: Against Medical Advice Reason For Visit: ABDOMINAL PAIN, NAUSEA/VOMITING, ALCOHOLISM Follow-up/Referrals: William Mullins MD [Primary Care Provider] - Diet: Low Fiber and Low Fat Prescriptions: No Action multivitamin Tablet 1 tab PO QAM RF: 0 vitamin B complex Tablet 1 tab PO DAILY RF: 0 vitamin E 400 unit Capsule PO DAILY RF: 0 cholecalciferol (vitamin D3) [Vitamin D3] 1,000 unit Tablet 1,000 unit PO DAILY RF: 0 melatonin 5 mg Tablet 5 mg PO HS RF: 0 omega [id number] oil [Fish Oil] 1,000 mg (120 mg-180 mg) Capsule 1 cap PO DAILY RF: 0 magnesium oxide 400 mg (241.3 mg magnesium) Tablet 400 mg PO QAM 30 Days Qty: 30 RF: 0 pantoprazole 40 mg Tablet,Delayed Release (Dr/Ec) 40 mg PO DAILY 30 Days Qty: 30 RF: 0 Admission Data Admit Date/Time: 10/16/18 02:34 Attending Provider: Rex Garsia Admit Provider: Jeffery Kuo Primary Care Provider: William Mullins Other Providers: Andrew Rios ; Jeffery Kuo ; Ramos Bustillos ; Izabela Richardson ; Mari Grady ; Anton Reid ; Norma Alvarado ; Antwan Luna ; Amy Pedraza ; Akbar Mcneil ; Bear Bland ; Brionna Mcmanus ; Dixie Carrero ; Dinah Madison ; Brittney Mosquera ; Angel Roberson Service: Medical
== END 2018-10-21 16:00 | disposition left against medical advice (07) | DRG 439 ==
LOC: ED → SUATTDRO 02:34 → 2E 02:34 → 4E 10-19 15:08

== ENCOUNTER 2018-12-31 21:02 | Inpatient (IN) ==
[2018-12-31] MEDS ORDERED: fentaNYL citrate 100 MCG/2 ML VIAL IV STA ×2 (21:27→23:11)
[2018-12-31] MEDS ORDERED: MULTI-VITAMIN INFUSION 10 ML, THIAMINE HCL 100 MG, FOLIC ACID 1 MG in SODIUM CHLORIDE 0... IV SCH (21:30)
[2018-12-31] MEDS ORDERED: LORazepam 1 MG/2 ML VIAL IV STA (21:42)
[2018-12-31 21:45] LABS: Basophils # (auto) 0.02 K/uL (0-0.2); Basophils % (auto) 0.3 %; Eosinophils # (auto) 0.19 K/uL (0-0.5); Eosinophils % (auto) 2.4 %; Hematocrit (blood only) 37.6 % (37-47); Hemoglobin 12.8 g/dL (12.0-16.0); Immature Granulocytes # (auto) 0.02 K/uL (0.00-0.02); Immature Granulocytes % (auto) 0.3 %; Lymphocytes # (auto) 3.05 K/uL (1.2-3.4); Mean Corpuscular Volume 90.2 fL (80-100); Mean Platelet Volume 8.9 fL (7.4-10.4); Monocytes # (auto) 0.57 K/uL (0.11-0.59); Monocytes % (auto) 7.3 %; Neutrophils # (auto) 3.97 K/uL (1.4-6.5); Neutrophils % (auto) 50.7 %; Platelet Count 124 K/uL (130-400); RDW Coefficient of Variation 16.6 % (11.5-14.5); RDW Standard Deviation 54.8 fL (36.4-46.3); Red Blood Count 4.17 M/uL (4.2-5.4); White Blood Count 7.82 K/uL (4.8-10.8)
[2018-12-31 21:58] LABS: Partial Thromboplastin Ratio 0.9; Partial Thromboplastin Time 23.4 Seconds (21.0-31.0)
[2018-12-31 22:01] LABS: Pregnancy Test, Serum Negative (Negative)
[2018-12-31 22:02] LABS: Albumin Level 3.8 gm/dl (3.4-5.0); BUN Creatinine Ratio 7.9 (10-20); Bilirubin Direct 0.1 mg/dl (0-0.2); Calcium 9.1 mg/dl (8.5-10.1); Creatinine Clr Calc Pharmacy 122.8 ml/min; Est GFR (African American) 144.5; Est GFR (Non-African American) 124.7; Potassium 3.5 mmol/L (3.5-5.1)
[2018-12-31 22:05] LABS: Bilirubin,Total 0.3 mg/dl (0.2-1); Total Protein 7.8 gm/dl (6.4-8.2)
[2018-12-31 22:11] LABS: Pregnancy Test, Urine Negative (Negative)
[2018-12-31 22:13] LABS: Appearance Urine Cloudy (Clear); Bacteria Urine Automated 1+ (Negative); Bilirubin Urine Negative (Negative); Blood Urine Negative (Negative); Color Urine Yellow; Epithelial Cell Urine Auto >30 /lpf (0-5); Glucose Urine UA Negative (Negative); Ketones Urine Negative (Negative); Leukocyte Esterase Urine Negative (Negative); Nitrite Urine Negative (Negative); Protein Urine Negative (Negative); RBC Urine Automated 0-4 /hpf (0-4); Specific Gravity Urine 1.016 (1.000-1.030); Urobilinogen Urine Negative (Negative)
--- NOTE | 2018-12-31 22:23 | XRay Report ---
XR ankle RT min 3V routine CLINICAL HISTORY: right lateral malleolus pain s/p fall trauma. Pain. COMPARISON: None. DISCUSSION: The bones and joint spaces appear intact. There is no evidence of fracture, dislocation o r bony disease. There is no evidence for soft tissue swelling. IMPRESSION: Negative study. The above report was generated using voice recognition software. It may contain grammatical, syntax or spelling errors. Electronically signed by: Matt Bentley M.D. 12/31/2018 10:22 PM
--- NOTE | 2018-12-31 22:24 | XRay Report ---
XR foot RT min 3V routine CLINICAL HISTORY: foot and 5th digit pain s/p fall trauma. Pain. COMPARISON: None. DISCUSSION: The bones and joint spaces appear intact. There is no evidence of fracture, dislocation o r bony disease. There is no evidence for soft tissue swelling. IMPRESSION: Negative study. The above report was generated using voice recognition software. It may contain grammatical, syntax or spelling errors. Electronically signed by: Matt Bentley M.D. 12/31/2018 10:23 PM
[2018-12-31] MEDS ORDERED: IOVERSOL 100ml IV PRN (22:35)
--- NOTE | 2018-12-31 22:47 | CT Scan Report ---
CT abd pelvis IV con only CT DOSE: 273.03 mGy.cm HISTORY: Nausea. Vomiting. severe epigastric pain, nausea, vomiting TECHNIQUE: Multiaxial CT images of the abdomen and pelvis were performed following the use of intrave nous contrast. A dose lowering technique was utilized adhering to the principles of ALARA. COMPARISON STUDY: 09/24/2018 FINDINGS: Lung bases are clear. Liver spleen and pancreas are unremarkable. Mild hyperemia of small b owel wall suggesting nonspecific enteritis. Nonobstructive bowel pattern. Normal appendix. Colon is unremarkable. Uterus is Zanaflex. Latter is m idline. Kidneys negative for calcification or hydronephrosis. IMPRESSION: 1. Small bowel enteritis. 2. Normal appendix. 3. Nonobstructive bowel pattern. 4. Study is otherwise negative. The above report was generated using voice recognition software. It may contain grammatical, syntax or spelling errors. Electronically signed by: Matt Bentley M.D. 12/31/2018 10:45 PM
[2018-12-31] MEDS ORDERED: LACTATED RINGER'S 1,000 ML IV ONE (23:29)
[2018-12-31 23:45] LABS: Amphetamines+Metham, Urine Neg (Neg); Barbiturates, Urine Neg (Neg); Benzodiazepine, Urine Neg (Neg); Cocaine, Urine Neg (Neg); MDMA (Ecstacy), Urine Neg (Neg); Methadone, Urine Neg (Neg); Opiate, Urine Neg (Neg); Phencyclidine, Urine Neg (Neg)
[2019-01-01 00:01] LABS: D Dimer 280 ug/L FEU (0-500)
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
[2019-01-01] MEDS: KETOROLAC TROMETHAMINE 15 MG/ML VIAL IV PRN ×4 (00:35→18:53)
[2019-01-01] MEDS ORDERED: ACETAMINOPHEN 325 MG TAB PO PRN (01:20)
[2019-01-01] MEDS ORDERED: POLYETHYLENE (MIRALAX) 17 GM PACK PO PRN (01:20)
[2019-01-01] MEDS ORDERED: ATIVAN IV ALCOHOL WITHDRAWL IV SCH (01:20)
[2019-01-01] MEDS ORDERED: GABAPENTIN 1200MG ALCOHOL WITHDRAWAL LOAD PO STA (01:20)
[2019-01-01] MEDS ORDERED: LORazepam 2 MG/4 ML VIAL IV PRN (01:20)
[2019-01-01] MEDS ORDERED: LORazepam 3 MG/6 ML VIAL IV PRN (01:20)
[2019-01-01] MEDS: OXYCODONE HCL IR 5 MG TAB (IMMEDIATE RELEASE) PO PRN ×4 (01:52→21:32)
[2019-01-01] MEDS: PROMETHAZINE HCL 12.5 MG in SODIUM CHLORIDE 0.9% 50 ML IV PRN ×3 (01:53→15:34)
[2019-01-01] MEDS: DOCUSATE SODIUM 100 MG CAP PO SCH (01:58)
[2019-01-01] MEDS ORDERED: GABAPENTIN 600 MG TAB PO SCH (02:00)
[2019-01-01] MEDS ORDERED: LACTATED RINGER'S 1,000 ML IV ONE (02:00)
[2019-01-01 06:04] LABS: Hemoglobin 10.8 g/dL (12.0-16.0); Mean Corpuscular Hgb Conc 33.8 g/dL (32-36); Mean Corpuscular Volume 91.4 fL (80-100); RDW Standard Deviation 56.4 fL (36.4-46.3); White Blood Count 5.47 K/uL (4.8-10.8)
--- NOTE | 2019-01-01 06:23 | XRay Report ---
XR chest 1V portable HISTORY: 23 years-old Female sob acute shortness of breath COMPARISON: Chest radiograph 09/27/2018, CT abdomen and pelvis 12/31/2017 TECHNIQUE: Portable AP view of the chest FINDINGS: The cardiomediastinal and hilar silhouettes are within normal limits. There is no pneumothorax, pleur al effusion, focal airspace consolidation or overt pulmonary edema. The bones of the chest appear adri ssly intact. IMPRESSION: No acute process. The above report was generated using voice recognition software. It may contain grammatical, syntax o r spelling errors. Electronically signed by: Jose Abraham M.D. 01/01/2019 6:21 AM
[2019-01-01 06:26] LABS: Basophils # (auto) 0.01 K/uL (0-0.2); Basophils % (auto) 0.2 %; Eosinophils % (auto) 3.7 %; Immature Granulocytes # (auto) 0.01 K/uL (0.00-0.02); Immature Granulocytes % (auto) 0.2 %; Lymphocytes # (auto) 2.39 K/uL (1.2-3.4); Lymphocytes % (auto) 43.7 %; Mean Platelet Volume 9.3 fL (7.4-10.4); Monocytes # (auto) 0.54 K/uL (0.11-0.59); Monocytes % (auto) 9.9 %; Neutrophils # (auto) 2.32 K/uL (1.4-6.5); Neutrophils % (auto) 42.3 %; Platelet Count 97 K/uL (130-400); Platelet Estimate Decreased (Normal); RBC Morphology Unremarkable
[2019-01-01 06:35] LABS: Alanine Aminotransferase 16 U/L (12-78); Alkaline Phosphatase 42 U/L (45-117); Aspartate Aminotransferase 13 U/L (15-37); BUN Creatinine Ratio 12.7 (10-20); Bilirubin,Total 0.4 mg/dl (0.2-1); Blood Urea Nitrogen 7 mg/dl (7-18); Calcium 7.7 mg/dl (8.5-10.1); Carbon Dioxide 26 mmol/L (21-32); Chloride 109 mmol/L (98-107); Creatinine Clr Calc Pharmacy 140.7 ml/min; Est GFR (African American) > 150.0; Est GFR (Non-African American) 130.4; Globulin 3.1 gm/dl (2.5-4.0); Glucose 78 mg/dl (70-99); Potassium 3.6 mmol/L (3.5-5.1); Sodium 142 mmol/L (136-145); Total Protein 6.1 gm/dl (6.4-8.2)
[2019-01-01] MEDS: FOLIC ACID 1 MG TAB PO SCH (09:09)
[2019-01-01] MEDS: PANTOprazole 40 MG TAB PO SCH ×2 (09:09→19:47)
[2019-01-01] MEDS: THIAMINE HCL 100 MG TAB PO SCH (09:09)
[2019-01-01] MEDS: MULTIVITAMIN TAB PO SCH (09:09)
[2019-01-01] MEDS: GABAPENTIN 600 MG TAB PO SCH ×3 (09:09→21:31)
[2019-01-01] MEDS: VITAMIN B COMPLEX TAB PO SCH (09:09)
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
--- NOTE | 2019-01-01 12:40 | Hospitalist Progress Note ---
Date of Service January 01, 2019 Assessment & Plan (1) Alcohol withdrawal: Patient with history of alcoholism, pancreatitis, anxiety/depressive mood disorder, tobacco, alcohol abuse, comes to ED with complaint of upper epigastric pain with nausea and vomiting. Symptoms could be secondary to alcoholic gastritis Lipase elevated in 400s, now down to 186. Continues to complain of epigastric pain, nausea, vomiting, using Roxanol and tramadol as scheduled. Continue with clear liquids, advance as tolerated IV Ringer lactate at 80 cc/hour -Monitor ALCOHOLISM Patient is a known case of alcohol abuse. Last drink was yesterday prior to admission to ED. On alcohol withdrawal protocol with gabapentin Continue with folic acid, multivitamin, thiamine. Patient is interested in inpatient rehab at this time to quit. Monitor for withdrawal symptoms/DTs ANXIETY/DEPRESSION Psych consulted - did an evaluation in 09/2018. Symptoms more related to substance abuse. -No suicidal ideations -No SSRI indicated at this time TOBACCO ABUSE DISORDER -Counseling about quitting done CHRONIC THROMBOCYTOPENIA -Platelets in the range of 90s -No active bleeding -Monitor DVT prophylaxis. SCDs RE thrombocytopenia Full code Disposition Medical mx in progress Patient is interested in inpatient alcohol rehab. software engineering manager on board. Subjective Patient continues to complain of nausea. Had an episode of vomiting in a.m. Continues to complain of epigastric pain radiating to her back. Denies any fever, chills. Mental statusawake, alert, oriented x3. Review of Systems Review of Systems: As per HPI, all 10 systems reviewed, all other ROS negative Physical Exam Physical Exam: GENERAL- AAOX3, No acute distress LUNGS- Air entry bilaterally equal. No rales, rhonchi, crackles, wheezes heard. HEART- Regular rate and rhythm. No murmurs ABDOMEN- Soft, mild epigastric tenderness, non distended, Bowel sounds heard. EXTREMITIES- Good peripheral pulses, no edema Results & Data Vital Signs (Past 12 Hours) Vital Signs Temp Pulse Pulse Resp BP Pulse Ox 01/01/19 10:19 92 H 01/01/19 08:00 37.0 C 97 H 18 110/73 97 01/01/19 04:47 37.0 C 88 18 98/61 L 96 01/01/19 02:30 36.7 C 90 16 97/66 L 96 01/01/19 00:35 100 H 20 115/78 97 (1) Alcohol withdrawal Complication of substance-induced condition: uncomplicated Qualified Code(s): F10.230 - Alcohol dependence with withdrawal, uncomplicated
[2019-01-01] MEDS: LORazepam 1 MG/2 ML VIAL IV PRN (19:45)
[2019-01-02] MEDS: OXYCODONE HCL IR 5 MG TAB (IMMEDIATE RELEASE) PO PRN ×4 (03:34→22:51)
[2019-01-02] MEDS: GABAPENTIN 600 MG TAB PO SCH ×3 (05:50→23:33)
[2019-01-02] MEDS: KETOROLAC TROMETHAMINE 15 MG/ML VIAL IV PRN ×3 (07:45→20:23)
[2019-01-02] MEDS: DOCUSATE SODIUM 100 MG CAP PO SCH (07:50)
[2019-01-02] MEDS: PANTOprazole 40 MG TAB PO SCH ×2 (07:51→20:22)
[2019-01-02] MEDS: MULTIVITAMIN TAB PO SCH (07:51)
[2019-01-02] MEDS: VITAMIN B COMPLEX TAB PO SCH (07:52)
[2019-01-02] MEDS: THIAMINE HCL 100 MG TAB PO SCH (07:52)
[2019-01-02] MEDS: FOLIC ACID 1 MG TAB PO SCH (07:52)
[2019-01-02 08:59] LABS: Hematocrit (blood only) 32.7 % (37-47); Hemoglobin 11.1 g/dL (12.0-16.0); Mean Corpuscular Hgb Conc 33.9 g/dL (32-36); Mean Corpuscular Volume 91.9 fL (80-100); RDW Coefficient of Variation 16.9 % (11.5-14.5); RDW Standard Deviation 55.9 fL (36.4-46.3); Red Blood Count 3.56 M/uL (4.2-5.4); White Blood Count 3.69 K/uL (4.8-10.8)
[2019-01-02 09:09] LABS: Mean Platelet Volume 8.2 fL (7.4-10.4); Platelet Count 78 K/uL (130-400)
[2019-01-02 09:37] LABS: BUN Creatinine Ratio 4.7 (10-20); Calcium 8.4 mg/dl (8.5-10.1); Est GFR (African American) 101.6; Est GFR (Non-African American) 87.7; Potassium 3.3 mmol/L (3.5-5.1)
--- NOTE | 2019-01-02 10:18 | Hospitalist Progress Note ---
Date of Service January 02, 2019 Assessment & Plan (1) Alcohol withdrawal: Patient with history of alcoholism, pancreatitis, anxiety/depressive mood disorder, tobacco, alcohol abuse, comes to ED with complaint of upper epigastric pain with nausea and vomiting. Symptoms could be secondary to alcoholic gastritis Lipase elevated in 400s, came down to 186 within 24 hours. Taking Roxanol and tramadol regularly. On IV Toradol as well Advance to regular diet today Ok to discontinue IVF -On protonix 40 mg BID ALCOHOLISM Patient is a known case of alcohol abuse. Last drink was prior to admission to ED. On alcohol withdrawal protocol with gabapentin Continue with folic acid, multivitamin, thiamine. Patient is interested in inpatient rehab at this time to quit. Monitor for withdrawal symptoms/DTs - stable so far ANXIETY/DEPRESSION Psych consulted - did an evaluation in 09/2018. Symptoms more related to substance abuse. -No suicidal ideations -No SSRI indicated at this time -Had recommended Hydroxyzine 10 mg PRN in past. Will start her on it for anxiety- Would prefer it over lorazepam. TOBACCO ABUSE DISORDER -Counseling about quitting done CHRONIC THROMBOCYTOPENIA -Platelets in the range of 90s -No active bleeding DVT prophylaxis. SCDs RE thrombocytopenia Full code Disposition Advanced diet today. Patient is interested in inpatient alcohol rehab. If doing well and no signs of DTs, tolerates diet, okay to discharge tomorrow. product manager medical device on board. Subjective Patient is feeling much better today. Complains of anxiety Epigastric pain is better. Nausea has improved. No episodes of vomiting. Denies any fever, chills. Tolerating clear liquids well Physical Exam Physical Exam: GENERAL- AAOX3, No acute distress LUNGS- Air entry bilaterally equal. No rales, rhonchi, crackles, wheezes heard. HEART- Regular rate and rhythm. No murmurs ABDOMEN- Soft, mild epigastric tenderness, non distended, Bowel sounds heard. EXTREMITIES- Good peripheral pulses, no edema SKIN- Multiple Tattoos Results & Data Vital Signs (Past 12 Hours) Vital Signs Temp Pulse Pulse Resp BP BP Pulse Ox 01/02/19 07:36 36.7 C 82 18 109/71 100 01/02/19 03:00 36.9 C 62 18 115/73 100 01/02/19 00:00 78 01/01/19 23:00 36.7 C 93 H 18 125/81 97 (1) Alcohol withdrawal Complication of substance-induced condition: uncomplicated Qualified Code(s): F10.230 - Alcohol dependence with withdrawal, uncomplicated
[2019-01-02] MEDS ORDERED: POTASSIUM CHLORIDE 20 MEQ TABCR PO STA (10:19)
[2019-01-02] MEDS: hydrOXYzine HCl 10 MG TAB PO PRN ×2 (11:28→22:51)
[2019-01-03] MEDS: OXYCODONE HCL IR 5 MG TAB (IMMEDIATE RELEASE) PO PRN ×3 (04:49→17:44)
[2019-01-03] MEDS: hydrOXYzine HCl 10 MG TAB PO PRN ×2 (04:49→11:59)
[2019-01-03] MEDS: KETOROLAC TROMETHAMINE 15 MG/ML VIAL IV PRN ×2 (08:07→15:40)
[2019-01-03] MEDS: MULTIVITAMIN TAB PO SCH (08:10)
[2019-01-03] MEDS: PANTOprazole 40 MG TAB PO SCH (08:10)
[2019-01-03] MEDS: THIAMINE HCL 100 MG TAB PO SCH (08:11)
[2019-01-03] MEDS: FOLIC ACID 1 MG TAB PO SCH (08:11)
[2019-01-03] MEDS: DOCUSATE SODIUM 100 MG CAP PO SCH (08:11)
[2019-01-03] MEDS: VITAMIN B COMPLEX TAB PO SCH (08:12)
[2019-01-03] MEDS: LORazepam 1 MG/2 ML VIAL IV PRN (08:21)
[2019-01-03] MEDS: GABAPENTIN 600 MG TAB PO SCH (11:13)
--- NOTE | 2019-01-03 17:27 | Hospitalist Progress Note ---
Date of Service January 03, 2019 Assessment & Plan (1) Alcohol withdrawal: ALCOHOLISM Patient is a known case of alcohol abuse. Last drink was prior to admission to ED. treated alcohol withdrawal protocol with gabapentin Continue with folic acid, multivitamin, thiamine. no s/s of withdrawal so far vitals remains stable , no tremor eager to be discharged home today pt is given informations for inpatient and out patient Alcohol rehab wants to be discharged home and then decide -leaning towards out patient rehab had tried inpatient rehab in past -did not help her , made her anxiety worse wants to establish care with Psychiatrist and Therapist as out patient to deal with Anxiety and depression pt's Significant other is present at bedside -agrees with the plan ANXIETY/DEPRESSION Psych consulted - did an evaluation in 09/2018. Symptoms more related to substance abuse. -No suicidal ideations -No SSRI indicated at this time -cont Hydroxyzine 10 mg PRN -avoid BDZ -high risk for abuse pt wants to follow up with Psychiatrist as out pt TOBACCO ABUSE DISORDER -Counseling about quitting done CHRONIC THROMBOCYTOPENIA due to chronic alcohol abuse -possible underlying alcoholic liver disease -Platelets in the range of 90s -No active bleeding -pt is counselled regarding -severe morbidity associated with End stage Alchoholic liver disease pt voiced understanding -says she knows people who diet from alcoholic liver failure -She does not want to that way agreeable to seek Help to quit drinking (2) Pancreatitis: ACUTE ALCHOHOLIC PANCREATITIS hx of nursing home Alchohol abuse/prior hx of pancreatitis presented with complaint of upper epigastric pain with nausea and vomiting. Lipase elevated in 400s, came down to 186 within 24 hours. pt was treated with bowel rest , IVF no complain of abdominal pain , no nausea /vomiting tolerating regular diet well pt is counselled the risk for fulminant liver failure /chronic pancreatitis with ongoing heavy drinking -wants to pursue Alchohol rehab as out patient DVT prophylaxis. SCDs RE thrombocytopenia Full code Disposition Medically stable to be discharged home today Family Medicine follow up with Dr Mullins at [facility] Subjective no complain of abdominal pain or nausea finished regular diet tray appetite fair Physical Exam Constitutional: WD/WN, vitals as above no acute distress multiple tatoos , nose ring , lip rings present Eyes: PERRL, conjunctivae normal, anicteric sclerae ENMT: external ear and nose normal, oropharynx normal Neck: trachea midline, no thyromegaly Respiratory: normal respiratory effort, lungs clear to auscultation Cardiovascular: RRR, no murmur, no edema Gastrointestinal (Abdomen): normal bowel sounds, soft, nontender, no hepatosplenomegaly Musculoskeletal: no cyanosis or clubbing, extremities motor strength 5/5 Skin: no rashes, warm and dry numerous tatoos and piercing rings present Neurologic: PERRL, EOMI, accommodation nl, no face palsy, no dysarthria Psychiatric: Orientation: alert and oriented x 3 Mood: + anxious mood Results & Data Vital Signs (Past 12 Hours) Vital Signs Temp Pulse Pulse Pulse Resp BP BP 01/03/19 16:23 110 H 01/03/19 15:40 36.8 C 98 H 16 100/75 01/03/19 15:14 36.6 C 94 H 18 112/75 01/03/19 11:13 36.6 C 88 18 114/76 01/03/19 07:33 78 01/03/19 07:04 36.8 C 83 19 100/65 Pulse Ox 01/03/19 16:23 01/03/19 15:40 96 01/03/19 15:14 98 01/03/19 11:13 100 01/03/19 07:33 01/03/19 07:04 98 (1) Alcohol withdrawal Complication of substance-induced condition: uncomplicated Qualified Code(s): F10.230 - Alcohol dependence with withdrawal, uncomplicated (2) Pancreatitis Acute pancreatitis complication: no infection or necrosis Chronicity: acute Pancreatitis type: alcohol induced Qualified Code(s): K85.20 - Alcohol induced acute pancreatitis without necrosis or infection
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
[2019-01-04] MEDS ORDERED: GABAPENTIN 600 MG TAB PO SCH (12:00)
== END 2019-01-03 19:32 | disposition home or self-care (01) | DRG 440 ==
LOC: ED 21:02 → 2N 01-01 00:32 → SUATTDRO 01-01 00:32 → 2N 01-01 01:06

== ENCOUNTER 2019-03-04 16:27 | Inpatient (IN) ==
[2019-03-04] MEDS ORDERED: SODIUM CHLORIDE 0.9% 1000ML 1,000 ML IV ONE (16:50)
[2019-03-04] MEDS ORDERED: ONDANSETRON INJ 2 MG/ML 2 ML VIAL IV STA ×2 (16:50→19:24)
[2019-03-04] MEDS ORDERED: MULTI-VITAMIN INFUSION 10 ML, THIAMINE HCL 100 MG, FOLIC ACID 1 MG in SODIUM CHLORIDE 0... IV ONE (16:50)
[2019-03-04] MEDS ORDERED: PROMETHAZINE HCL 12.5 MG in SODIUM CHLORIDE 0.9% 50 ML IV STA ×2 (16:50→18:27)
[2019-03-04] MEDS ORDERED: MoRPHine SULFATE 2 MG/ML CARP IV STA (16:50)
[2019-03-04] MEDS ORDERED: PROMETHAZINE HCL INJ 25 MG/ML 1 ML VIAL ONE (17:02)
[2019-03-04 17:08] LABS: Basophils # (auto) 0.01 K/uL (0-0.2); Basophils % (auto) 0.1 %; Eosinophils # (auto) 0.01 K/uL (0-0.5); Eosinophils % (auto) 0.1 %; Hematocrit (blood only) 39.7 % (37-47); Hemoglobin 13.9 g/dL (12.0-16.0); Immature Granulocytes # (auto) 0.05 K/uL (0.00-0.02); Immature Granulocytes % (auto) 0.5 %; Lymphocytes # (auto) 1.34 K/uL (1.2-3.4); Lymphocytes % (auto) 12.7 %; Mean Corpuscular Volume 88.6 fL (80-100); Mean Platelet Volume 9.3 fL (7.4-10.4); Monocytes # (auto) 0.51 K/uL (0.11-0.59); Monocytes % (auto) 4.8 %; Neutrophils # (auto) 8.61 K/uL (1.4-6.5); Neutrophils % (auto) 81.8 %; Platelet Count 121 K/uL (130-400); RDW Coefficient of Variation 15.3 % (11.5-14.5); RDW Standard Deviation 49.3 fL (36.4-46.3); Red Blood Count 4.48 M/uL (4.2-5.4); White Blood Count 10.53 K/uL (4.8-10.8)
--- NOTE | 2019-03-04 17:32 | XRay Report ---
XR chest 1V portable HISTORY: epig pain, vomiting COMPARISON: Chest 02/01/2019. FINDINGS: Stable calcified granuloma within the right upper lobe. Otherwise, lungs are near. No pleur al effusions. No pneumothorax. The heart is normal in size. IMPRESSION: No significant change compared to the prior study. No acute process. Electronically signed by: Sadiq Pace M.D. 03/04/2019 5:31 PM
[2019-03-04 17:49] LABS: Albumin Level 4.3 gm/dl (3.4-5.0); BUN Creatinine Ratio 13.4 (10-20); Bilirubin,Total 0.5 mg/dl (0.2-1); Calcium 9.2 mg/dl (8.5-10.1); Creatinine Clr Calc Pharmacy 100.9 ml/min; Est GFR (African American) 125.5; Est GFR (Non-African American) 108.3; Globulin 4.5 gm/dl (2.5-4.0); Potassium 3.9 mmol/L (3.5-5.1); Pregnancy Test, Serum Negative (Negative); Total Protein 8.8 gm/dl (6.4-8.2)
--- NOTE | 2019-03-04 17:52 | CT Scan Report ---
HEAD CT NONCONTRAST CT DOSE: 1193.21 mGy.cm HISTORY: fall, alcohol TECHNIQUE: Multiaxial CT images of the head were performed without the use of intravenous contrast. A utomated exposure control was utilized for this study. A dose lowering technique was utilized adheri ng to the principles of ALARA. Comparison: Head CT 02/22/2019. Findings: Mild mucosal thickening within the ethmoid air cells. This is improved. The mastoid air wes ls are clear. The calvarium and skull base are intact. The ventricles and sulci are within normal beyer its. There is no mass, hematoma, midline shift, or acute infarct. Impression: No acute intracranial abnormality. Electronically signed by: Sadiq Pace M.D. 03/04/2019 5:50 PM
[2019-03-04] MEDS ORDERED: LORazepam 0.5 MG/1 ML VIAL IV STA (18:27)
[2019-03-04] MEDS ORDERED: MoRPHine SULFATE 4 MG/ML 1 ML CARP\\VIAL IV STA (18:27)
[2019-03-04] MEDS ORDERED: DiphenhydrAMINE HCL 50 MG/ML VIAL IV STA (18:27)
[2019-03-04 18:54] LABS: Base Excess VBG -12.6 mEq/L; Oxygen Saturation VBG 82.5 %; pH VBG 7.33 (7.36-7.41)
[2019-03-04] MEDS ORDERED: PROMETHAZINE 25 MG/51 ML NSS IV ONE (18:56)
[2019-03-04] MEDS ORDERED: LORazepam 1 MG/2 ML VIAL IV STA (19:24)
--- NOTE | 2019-03-04 19:49 | XRay Report ---
KUB HISTORY: Generalized abdominal pain. COMPARISON: Abdominal series 02/01/2019. FINDINGS: The bowel gas pattern is unremarkable. There are no dilated loops of small bowel to suggest an obstruction. No renal calculi. No ureteral calculi. No pneumoperitoneum or pneumatosis. IMPRESSION: Unremarkable bowel gas pattern. No evidence for bowel obstruction. Electronically signed by: Sadiq Pace M.D. 03/04/2019 7:48 PM
[2019-03-04] MEDS ORDERED: PANTOprazole 80 MG in DEXTROSE 5% 100 ML IV ONE (20:45)
[2019-03-04] MEDS ORDERED: IOVERSOL 100ml IV PRN (21:10)
[2019-03-04] MEDS ORDERED: GABAPENTIN 1200MG ALCOHOL WITHDRAWAL LOAD PO STA (21:19)
[2019-03-04] MEDS ORDERED: GABAPENTIN 600 MG TAB PO SCH (21:19)
[2019-03-04] MEDS ORDERED: NITROGLYCERIN SL 0.4 MG/TAB TAB SL PRN (21:19)
--- NOTE | 2019-03-04 21:38 | CT Scan Report ---
ABDOMEN AND PELVIS CT WITH IV CONTRAST CT DOSE: 272.07 mGy.cm HISTORY: severe abdominal pain, alcoholism, gi bleed? TECHNIQUE: Multiaxial CT images of the abdomen and pelvis were performed following the use of intrave nous contrast. A dose lowering technique was utilized adhering to the principles of ALARA. COMPARISON STUDY: Abdomen and pelvis CT 12/31/2018. FINDINGS: The lung bases are clear. No pneumoperitoneum. No pneumatosis. No fractures within the visu alized osseous structures. Mildly distended gallbladder, unchanged. No gallbladder wall thickening. S evere hepatic steatosis. The main portal vein is patent. The pancreas, spleen, adrenal glands, and ki dneys are unremarkable. No hydronephrosis. No retroperitoneal lymphadenopathy. No bowel wall thickeni ng or obstruction. Normal appendix. The bladder, uterus, bilateral adnexa are within normal limits. IMPRESSION: 1. Severe hepatic steatosis. This has developed in the interval. 2. No bowel wall thickening or obstruction. 3. Mildly distended gallbladder. No gallbladder wall thickening. Electronically signed by: Sadiq Pace M.D. 03/04/2019 9:37 PM
[2019-03-04] MEDS: MoRPHine SULFATE 4 MG/ML 1 ML CARP\\VIAL IV PRN (21:39)
[2019-03-04] MEDS: LORazepam 1 MG/2 ML VIAL IV PRN (22:05)
[2019-03-04] MEDS: MULTIVITAMIN TAB PO SCH (22:06)
[2019-03-04] MEDS: SODIUM CHLORIDE 0.9% 1000ML 1,000 ML IV SCH (22:06)
[2019-03-04] MEDS: PANTOprazole 40 MG in DEXTROSE 5% 100 ML IV SCH (22:06)
[2019-03-04] MEDS: SERTRALINE HCL 50 MG TABLET PO SCH (22:07)
--- NOTE | 2019-03-04 22:15 | History and Physical Report ---
DATE OF ADMISSION: 03/04/2019 CHIEF COMPLAINT: Nausea, vomiting, abdominal pain and alcoholism. HISTORY OF PRESENT ILLNESS: A 24-year-old female with past medical history significant for recurrent admissions for alcoholism and pancreatitis, tobacco use disorder, history of marijuana use, depression, anxiety, presents with nausea, vomiting, abdominal pain. The patient says since last few days she has been homeless, she is kicked out of the house and she is sleeping outside and she is drinking 1 handle of vodka every day and today she developed severe nausea, vomiting and abdominal pain in the epigastric region radiating to back and she says she might have vomited a small amount of blood like black stuff. Denies any diarrhea or constipation or blood in the stool. She says she did not eat for last 2 days and she is not moving her bowels much. She says she has some chest pain, but the pain is more when taking deep breaths. She has some shortness of breath. Complains of dizziness when she stands up and has some mild headache, no blurred vision, no earache. Has some runny nose, some sore throat. Has cough, no fever, no chills. No rash, no swelling in the legs. Hemodynamics are stable. ALLERGIES: AMINATA, MUSHROOM. PAST MEDICAL HISTORY: As mentioned above. PAST SURGICAL HISTORY: No pertinent past surgical history. MEDICATIONS: She is supposed to be on gabapentin, melatonin, multivitamin, naltrexone, oral contraceptive pills, sertraline, vitamin B complex but right now she is only taking control pills. FAMILY HISTORY: Not significant. SOCIAL HISTORY: Smokes cigarettes. Daily alcohol drinking. Marijuana daily as per previous records, though she denies now. REVIEW OF SYMPTOMS: As per HPI. Rest of the review of systems negative. PHYSICAL EXAMINATION: GENERAL: The patient is alert and awake, seems to be in pain, not in acute distress. VITAL SIGNS: Temperature 36.8, pulse 118, respiratory rate 13, blood pressure 130/99, oxygen 98% on room air. HEENT: No pallor, no icterus. Pupils equal, round, reactive to light. NECK: No JVD, no neck masses, no carotid bruits. CARDIOVASCULAR: S1, S2 heard, regular rhythm. Tachycardia. No murmurs. RESPIRATORY SYSTEM: Normal AP diameter. No accessory muscle use. No wheezing, no crackles. ABDOMEN: Soft, bowel sounds sluggish. Diffuse abdominal tenderness, no rebound tenderness. Mild guarding, no rigidity. No distention. CENTRAL NERVOUS SYSTEM: Cranial nerves II-XII grossly nonfocal. EXTREMITIES: No erythema, no edema. LABORATORY DATA: WBC 10.5, hemoglobin 13.9, hematocrit 39.7, platelets 121. Sodium 128, potassium 3.9, chloride 97, bicarbonate 8, anion gap 23, BUN 10, creatinine 0.7, serum glucose 92, calcium 9.2, total bilirubin 0.5, AST 53, ALT 41, alkaline phosphatase 98, total protein 8.8, lipase 49. HCG negative. Ethyl alcohol 278. KUB x-ray, no evidence of bowel obstruction. Chest x-ray, no significant change from previous. No acute process. CT of the head, no acute intracranial abnormality seen. ASSESSMENT AND PLAN: This 24-year-old female with history of alcoholism, history of recurrent admissions for alcoholism, pancreatitis, presents with alcoholism, abdominal pain, nausea, vomiting. 1. Nausea and vomiting, most likely secondary to alcoholism, possible gastritis: She says she might have vomited a small amount of blood like black stuff. We will keep the patient on n.p.o., IV Protonix drip for now and follow the CAT scan of the abdomen and pelvis and consult GI in a.m. 2. Abdominal pain, history of pancreatitis in the past: Lipase is normal, will follow CAT scan of abdomen and pelvis, will keep her n.p.o., IV normal saline 150 mL per hour, IV antiemetics, and IV pain medications p.r.n. and on last admission there is concern for primary sclerosing cholangitis on mrcp 10/2018, she was supposed to follow up with GI as outpatient. 3. Alcoholism, Starting on alcohol withdrawal protocol with gabapentin and IV, Ativan p.r.n. Close monitoring for withdrawal. She says she has a history of seizures in the past. She is getting banana bag in the ER, continue with IV thiamine, IV folic acid and multivitamins in a.m. Closely monitor. 4. Metabolic acidosis, anion gap . Her ABG looks fine. We will follow repeat labs, mostly from alcoholism and starvation ketosis. 5. Hyponatremia from the above, we will follow repeat labs. Sodium 128. 6. Depression and anxiety. Continue Zoloft. 7. Deep venous thrombosis prophylaxis, sequential compression devices for now. 8. Disposition: Close monitoring in the Med/Surg, tele. Level [address] scan no pancreatitis but showed hepatic steatitis. Changed fluids to d5ns@125ml/hr. MTDD
[2019-03-04 22:45] LABS: Appearance Urine Clear (Clear); Bilirubin Urine Negative (Negative); Blood Urine 1+ (Negative); Color Urine Yellow; Glucose Urine UA Negative (Negative); Leukocyte Esterase Urine Negative (Negative); Nitrite Urine Negative (Negative); Protein Urine Negative (Negative); Urobilinogen Urine Negative (Negative)
[2019-03-04 22:51] LABS: Ketones Urine 3+ (Negative)
[2019-03-04 23:02] LABS: Bacteria Urine Negative (Negative); RBC Urine 0-4 /hpf (0-4); WBC Urine 0-5 /hpf (0-5)
[2019-03-04 23:07] LABS: Amphetamines+Metham, Urine Neg (Neg); Barbiturates, Urine Neg (Neg); Benzodiazepine, Urine Neg (Neg); Cocaine, Urine Neg (Neg); MDMA (Ecstacy), Urine Neg (Neg); Methadone, Urine Neg (Neg); Opiate, Urine Pos (Neg); Phencyclidine, Urine Neg (Neg)
[2019-03-04] MEDS: BCP'S~ORDER AWAITING ACTION SCH (23:34)
[2019-03-04] MEDS: ONDANSETRON INJ 2 MG/ML 2 ML VIAL IV PRN (23:37)
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
[2019-03-05] MEDS: MoRPHine SULFATE 4 MG/ML 1 ML CARP\\VIAL IV PRN ×3 (01:44→10:27)
[2019-03-05] MEDS: PANTOprazole 40 MG in DEXTROSE 5% 100 ML IV SCH ×2 (01:44→06:19)
[2019-03-05] MEDS: LORazepam 1 MG/2 ML VIAL IV PRN ×3 (03:16→06:19)
[2019-03-05] MEDS: GABAPENTIN 600 MG TAB PO SCH ×3 (03:18→18:05)
[2019-03-05] MEDS: SODIUM CHLORIDE 0.9% 1000ML 1,000 ML IV SCH (03:18)
[2019-03-05] MEDS: ONDANSETRON INJ 2 MG/ML 2 ML VIAL IV PRN ×2 (06:19→12:43)
[2019-03-05 06:21] LABS: BUN Creatinine Ratio 7.8 (10-20); Calcium 7.9 mg/dl (8.5-10.1); Creatinine Clr Calc Pharmacy 128.2 ml/min; Est GFR (African American) 146.6; Est GFR (Non-African American) 126.5; Magnesium 1.7 mg/dl (1.8-2.4); Potassium 3.6 mmol/L (3.5-5.1)
[2019-03-05 06:23] LABS: Hematocrit (blood only) 32.3 % (37-47); Mean Corpuscular Hemoglobin 30.6 pg (25-34); Mean Corpuscular Hgb Conc 34.1 g/dL (32-36); Mean Corpuscular Volume 89.7 fL (80-100); Platelet Count 65 K/uL (130-400); RDW Coefficient of Variation 15.4 % (11.5-14.5); RDW Standard Deviation 50.3 fL (36.4-46.3); White Blood Count 8.48 K/uL (4.8-10.8)
[2019-03-05] MEDS ORDERED: MAGNESIUM SULFATE / D5W 1 GM/100 ML BAG IV ONE (06:23)
[2019-03-05 06:24] LABS: Basophils # (auto) 0.01 K/uL (0-0.2); Basophils % (auto) 0.1 %; Eosinophils # (auto) 0.07 K/uL (0-0.5); Eosinophils % (auto) 0.8 %; Immature Granulocytes # (auto) 0.02 K/uL (0.00-0.02); Immature Granulocytes % (auto) 0.2 %; Lymphocytes # (auto) 1.64 K/uL (1.2-3.4); Lymphocytes % (auto) 19.3 %; Monocytes # (auto) 0.74 K/uL (0.11-0.59); Monocytes % (auto) 8.7 %; Neutrophils % (auto) 70.9 %; Platelet Estimate Decreased (Normal)
[2019-03-05] MEDS: D5W AND NSS 1,000 ML IV SCH ×2 (08:01→16:54)
[2019-03-05] MEDS: BCP'S~ORDER AWAITING ACTION SCH ×2 (08:03→16:02)
[2019-03-05] MEDS: CEROVITE ADV FORMULA TAB PO SCH (08:05)
[2019-03-05] MEDS ORDERED: THIAMINE HCL 100 MG in SYRINGE 9 ML IV SCH (09:00)
[2019-03-05] MEDS ORDERED: FOLIC ACID 1 MG in SYRINGE 9.8 ML IV SCH (09:00)
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
--- NOTE | 2019-03-05 11:53 | Hospitalist Progress Note ---
Date of Service March 05, 2019 Assessment & Plan (1) Alcohol abuse: History of long-term heavy alcohol abuse, Multiple admissions in hospital with alcohol withdrawal/abuse Patient was admitted on 09/24/2018,required ICU admission for alcohol withdrawal 10/16/2018: With alcohol intoxication/withdrawal, alcoholic pancreatitis 01/01/2019: With alcohol withdrawal/pancreatitis 02/01/2019: With alcohol withdrawal This admission on 03/04/2019 with alcohol withdrawal, Patient has alcoholic liver disease Patient usually binge on hard liquor She drinks 1 handle of vodka(1.75 L) to 1 bottle(1 L)every day Has been drinking this way for last 4 years She has been an alcoholic for more than 10 years has started to drink in her early teenage years Also history of poly-substance abuse: Marijuana cocaine, amphetamine and Narcotic pain meds Denies of IV drug abuse Admitted this time with alcohol withdrawal with blood alcohol level 278/urine drug screen positive for marijuana Transaminitis secondary to alcoholic hepatitis In her last admissions patient was evaluated multiple times by psychiatrist, histotechnologist Received counseling for alcohol abstinence/ She has refused alcohol rehab, outpatient alcohol counseling Readmitted in 3-4 weeks with abdominal pain nausea vomiting recurrent pancreatitis secondary to alcohol abuse Overall prognosis remains extremely poor (2) Alcohol intoxication: With alcohol level 278, associated with abdominal pain nausea vomiting Patient was admitted to telemetry started with alcohol withdrawal protocol with Neurontin, PRN IV Ativan as per AWSS protocol Patient's vitals remained stable, AWSS remained below 6 Tachycardia, no hypertensive episodes, no agitation, no sign of active withdrawal noted Continues to complain of chest pain, abdominal pain, requesting Ativan and IV Dilaudid CT abdomen pelvis shows no evidence of pancreatitis, normal lipase level Ordered for IV Toradol, will try to limit IV narcotics as much as possible secondary to history of narcotic abuse Anxiety disorder Reports of severe anxiety attacks, requesting Ativan, Refused inpatient alcohol rehab in the past secondary to anxiety episodes with group therapy Has been seen by psychiatrist team multiple times Patient history of drug and alcohol abuse, Ativan was avoided Recommended using Vistaril 25 mg every 4 hours as needed for anxiety Continue on Zoloft Needs to quit alcohol/needs to be sober at least a month and follow-up in the clinic with psychiatry to have a better assessment for underlying anxiety disorder Alcoholic liver disease Secondary to chronic heavy alcohol abuse CT abdomen pelvis shows hepatic steatosis Pancytopenia/thrombocytopenia severe alcohol abuse/starvation ketoacidosis alcoholic cirrhosis Patient was evaluated by GI in the past, received counseling numerous times for alcohol abstinence Patient has failed to comply Lactic acidosis Elevated lactic acid level with normal bicarb Continue to alcohol abuse/starvation ketoacidosis Patient has been homeless for last 1 week, Has not been eating much except for binging on hard liquor Lactic acid level normalized with IV fluids Patient's overall prognosis remains extremely poor ELECTROLYTE DERANGEMENT No magnesium, low potassium secondary to long-term Ordered for replacement Follow electrolytes CODE STATUS: Full code Disposition: To be a very difficult issue Has been very difficult in the past, refused alcohol rehab Refused outpatient alcohol counseling options Recently became homeless, but kicked out from her ex-boyfriend's house Does not have any place to stay Patient states she slept on bench on night has been staying on different friends house does not have any place to stay after discharge willing to go to inpatient alcohol rehab this time social service consulted Subjective History of GI bleed, vitals remained stable, no tremor, no agitation Patient continues to request IV narcotics for chest pain back pain Likely does not appear to be comfortable When I walked in, patient was half asleep, Opens eyes to voice and reported 10 out of 10 chest pain, No fever or chills, no cough Physical Exam Constitutional: + ill appearing; no acute distress and not intoxicated appearing Eyes: + anicteric sclerae ENMT: Mouth: + lip abnormality (Multiple piercing rings in both upper and lower lips) Neck: trachea midline, no thyromegaly Respiratory: normal respiratory effort, lungs clear to auscultation Cardiovascular: RRR, no murmur, no edema Gastrointestinal (Abdomen): normal bowel sounds, soft, nontender, no hepatosplenomegaly Musculoskeletal: no cyanosis or clubbing, extremities motor strength 5/5 Neurologic: PERRL, EOMI, accommodation nl, no face palsy, no dysarthria Psychiatric: Orientation: oriented x 3 Mood: + anxious mood Insight: + poor insight Judgement: + poor judgement Results & Data Vital Signs (Past 12 Hours) Vital Signs Temp Pulse Pulse Resp BP Pulse Ox 03/05/19 11:47 37.2 C 116 H 20 116/83 96 03/05/19 11:41 36.7 C 107 H 18 127/83 98 03/05/19 10:21 120 H 144/87 H 98 03/05/19 08:00 128 H 03/05/19 07:31 36.9 C 123 H 20 118/80 95 03/05/19 06:17 37.3 C 128 H 18 135/78 96 03/05/19 04:41 37.2 C 138 H 18 120/72 98 03/05/19 03:13 36.8 C 116 H 18 119/79 96 (1) Alcohol intoxication Complication of substance-induced condition: uncomplicated Qualified Code(s): F10.920 - Alcohol use, unspecified with intoxication, uncomplicated
[2019-03-05] MEDS: PROMETHAZINE HCL 12.5 MG in SODIUM CHLORIDE 0.9% 50 ML IV PRN (16:23)
[2019-03-05] MEDS ORDERED: HYDROmorphone INJ 1 MG/ML SYRINGE IV STA (18:29)
[2019-03-05] MEDS ORDERED: HYDROmorphone INJ 1 MG/ML SYRINGE ONE (18:34)
[2019-03-05] MEDS ORDERED: OPTIRAY 320 125ml IV PRN (18:48)
[2019-03-05] MEDS: PANTOprazole 40 MG TAB PO SCH (22:05)
[2019-03-05] MEDS: MULTIVITAMIN TAB PO SCH (22:05)
[2019-03-05] MEDS: SERTRALINE HCL 50 MG TABLET PO SCH (22:06)
--- NOTE | 2019-03-05 22:55 | CT Scan Report ---
CT ANGIOGRAM OF THE CHEST CLINICAL HISTORY: Atypical chest pain. COMPARISON STUDY: Chest CT scans dated 02/22/2019 and 09/27/2018. TECHNIQUE: Following the IV administration of 114 cc of Optiray 320, CT angiogram of the chest was pe rformed from the upper abdomen to the thoracic inlet utilizing the pulmonary embolus protocol. Images are reviewed in the axial, sagittal, and coronal planes. 3-D MIPS images are created and assessed. I V contrast was administered without complication. A dose lowering technique was utilized adhering to the principles of ALARA. CT DOSE: 242.38 mGy.cm FINDINGS: Thyroid: Imaged portions of the thyroid gland are normal in size and attenuation. Thoracic aorta: The thoracic aorta is normal in caliber and demonstrates standard 3-vessel arch anato my. No dissection is seen. Pulmonary vasculature: The pulmonary trunk is normal in caliber. There are no filling defects identif ied in main, lobar, or segmental pulmonary branches to suggest pulmonary embolus. Heart: The heart is normal in size and without pericardial effusion. Lungs and pleural spaces: There is no airspace consolidation or pleural effusion. The trachea and kinjal tral airways are clear. A calcified granuloma is seen in the right upper lobe. Mediastinum: There is no mediastinal lymphadenopathy. Andressa: Clear. Axillae: There is no axillary lymphadenopathy. Upper abdomen: The liver appears steatotic. Partially visualized upper abdominal viscera is otherwise grossly unremarkable. Skeletal structures: There is mild thoracic scoliosis. No lytic or blastic bony lesions are seen. IMPRESSION: 1. There is no evidence of pulmonary embolus in the main, lobar, or segmental pulmonary arteries. 2. There is no airspace consolidation or pleural effusion. Electronically signed by: Fermin Hui M.D. 03/05/2019 10:54 PM
[2019-03-05] MEDS: KETOROLAC TROMETHAMINE 15 MG/ML VIAL IV PRN (23:45)
[2019-03-06] MEDS: D5W AND NSS 1,000 ML IV SCH ×2 (00:02→08:23)
[2019-03-06] MEDS: BCP'S~ORDER AWAITING ACTION SCH ×2 (00:08→07:16)
[2019-03-06] MEDS: LORazepam 1 MG/2 ML VIAL IV PRN (00:30)
[2019-03-06] MEDS: GABAPENTIN 600 MG TAB PO SCH ×3 (02:14→21:31)
[2019-03-06] MEDS: PROMETHAZINE HCL 12.5 MG in SODIUM CHLORIDE 0.9% 50 ML IV PRN (04:33)
[2019-03-06] MEDS ORDERED: Nursing to Pharmacy Communication ONE (06:20)
[2019-03-06 07:17] LABS: Hematocrit (blood only) 33.5 % (37-47); Hemoglobin 11.9 g/dL (12.0-16.0); Mean Corpuscular Hemoglobin 30.9 pg (25-34); Mean Corpuscular Hgb Conc 35.5 g/dL (32-36); RDW Standard Deviation 47.4 fL (36.4-46.3); Red Blood Count 3.85 M/uL (4.2-5.4); White Blood Count 4.24 K/uL (4.8-10.8)
[2019-03-06 07:58] LABS: Mean Platelet Volume 8.5 fL (7.4-10.4); Platelet Count 52 K/uL (130-400); Platelet Estimate Decreased (Normal)
[2019-03-06 08:10] LABS: Alanine Aminotransferase 32 U/L (12-78); Albumin Globulin Ratio 0.9 (0.9-2); Albumin Level 3.2 gm/dl (3.4-5.0); Alkaline Phosphatase 70 U/L (45-117); Aspartate Aminotransferase 38 U/L (15-37); Bilirubin,Total 0.8 mg/dl (0.2-1); Blood Urea Nitrogen < 1 mg/dl (7-18); Calcium 8.2 mg/dl (8.5-10.1); Carbon Dioxide 30 mmol/L (21-32); Chloride 98 mmol/L (98-107); Creatinine Clr Calc Pharmacy 162.9 ml/min; Est GFR (African American) > 150.0; Est GFR (Non-African American) 136.3; Globulin 3.4 gm/dl (2.5-4.0); Glucose 108 mg/dl (70-99); Potassium 2.5 mmol/L (3.5-5.1); Sodium 135 mmol/L (136-145); Total Protein 6.6 gm/dl (6.4-8.2)
[2019-03-06] MEDS ORDERED: LORazepam 0.5 MG TAB PO PRN (08:28)
[2019-03-06] MEDS ORDERED: POTASSIUM CHLORIDE 20 MEQ TABCR PO STA (08:28)
[2019-03-06] MEDS ORDERED: PANTOprazole 40 MG TAB PO SCH (09:00)
[2019-03-06] MEDS: NSS + 20MEQ KCL 20 MEQ/1,000 ML BAG IV SCH ×2 (09:10→17:44)
[2019-03-06] MEDS: THIAMINE HCL 100 MG TAB PO SCH (10:01)
[2019-03-06] MEDS: FOLIC ACID 1 MG TAB PO SCH (10:02)
[2019-03-06] MEDS: CEROVITE ADV FORMULA TAB PO SCH (10:03)
[2019-03-06] MEDS: PANTOprazole 40 MG TAB PO SCH ×2 (10:04→20:33)
[2019-03-06] MEDS: KETOROLAC TROMETHAMINE 15 MG/ML VIAL IV PRN ×2 (12:53→19:56)
[2019-03-06] MEDS ORDERED: HYDROmorphone INJ 0.5 MG/0.5 ML SYR IV STA (17:45)
--- NOTE | 2019-03-06 20:15 | Hospitalist Progress Note ---
Date of Service March 06, 2019 Assessment & Plan (1) Alcohol abuse: completed detox process , no evidence of withdrawal has not required IV Ativan ( AWSS score been low ) -medically stable to transition to ETOH rehab -pt is willing to participate History of long-term heavy alcohol abuse, Multiple admissions in hospital with alcohol withdrawal/abuse Patient was admitted on 09/24/2018,required ICU admission for alcohol withdrawal 10/16/2018: With alcohol intoxication/withdrawal, alcoholic pancreatitis 01/01/2019: With alcohol withdrawal/pancreatitis 02/01/2019: With alcohol withdrawal This admission on 03/04/2019 with alcohol withdrawal, Patient has alcoholic liver disease Patient usually binge on hard liquor She drinks 1 handle of vodka(1.75 L) to 1 bottle(1 L)every day Has been drinking this way for last 4 years She has been an alcoholic for more than 10 years has started to drink in her early teenage years Also history of poly-substance abuse: Marijuana cocaine, amphetamine and Narcotic pain meds Denies of IV drug abuse Admitted this time with alcohol withdrawal with blood alcohol level 278/urine drug screen positive for marijuana no withdrawal symptom for past 48 hrs In her last admissions patient was evaluated multiple times by psychiatrist, primary teaching assistant Received counseling for alcohol abstinence/ She has refused alcohol rehab, outpatient alcohol counseling Readmitted in 3-4 weeks with abdominal pain nausea vomiting recurrent pancreatitis secondary to alcohol abuse Overall prognosis remains extremely poor PT DOES NOT HAVE ANY SIGN OF ETOH WITHDRAWAL SHOWING BEHAVIOR - NARCOTIC PAIN MEDS DEPENDENCY - d/w Psychiatry they have seen pt numerus times in past for the similar behaviour recommends no Ativan except if meets criteria per AWSS scale prn Hydroxyzine 25 mg po Q 4hrs for anxiety (2) Alcohol intoxication: With alcohol level 278, associated with abdominal pain nausea vomiting Patient was admitted to telemetry started with alcohol withdrawal protocol with Neurontin, PRN IV Ativan as per AWSS protocol Patient's vitals remained stable, AWSS remained below 3 no Tachycardia, no hypertensive episodes, no agitation, no sign of active withdrawal noted Continues to complain of chest pain, abdominal pain, requesting Ativan and IV Dilaudid CT abdomen pelvis shows no evidence of pancreatitis, normal lipase level Ordered for IV Toradol, IV narcotics d/adrien Anxiety disorder Reports of severe anxiety attacks, requesting Ativan, Refused inpatient alcohol rehab in the past secondary to anxiety episodes with group therapy Has been seen by psychiatrist team multiple times Patient history of drug and alcohol abuse, Ativan was avoided Recommended using Vistaril 25 mg every 4 hours as needed for anxiety Continue on Zoloft Needs to quit alcohol/needs to be sober at least a month and follow-up in the clinic with psychiatry to have a better assessment for underlying anxiety disorder Alcoholic liver disease Secondary to chronic heavy alcohol abuse CT abdomen pelvis shows hepatic steatosis Pancytopenia/thrombocytopenia severe alcohol abuse/starvation ketoacidosis alcoholic cirrhosis Patient was evaluated by GI in the past, received counseling numerous times for alcohol abstinence Patient has failed to comply Lactic acidosis Elevated lactic acid level with normal bicarb Continue to alcohol abuse/starvation ketoacidosis Patient has been homeless for last 1 week, Has not been eating much except for binging on hard liquor Lactic acid level normalized with IV fluids Patient's overall prognosis remains extremely poor ELECTROLYTE DERANGEMENT No magnesium, low potassium secondary to long-term Ordered for replacement Follow electrolytes CODE STATUS: Full code Disposition: To be a very difficult issue Has been very difficult in the past, refused alcohol rehab Refused outpatient alcohol counseling options Recently became homeless, but kicked out from her ex-boyfriend's house Does not have any place to stay Patient states she slept on bench on night has been staying on different friends house does not have any place to stay after discharge willing to go to inpatient alcohol rehab this time social service consulted Subjective pt being very difficult with nursing stuff yelling , asking for IV dilaudid calling names no sign of withdrawl , no tachycardia or hymodynamic instability AWSS score been low < 3 nursing noted , pt will be sleeping and groggy then wake up asking for pain meds stating severe pain in chest /abdomen /back requesting IV Dilaudid does not want IV toradol as they are " baby pain meds " does not help her she needs " stronger stuff " CT abdomen /pelvis -no evidence of pancreatitis CT chest negative for PE there is no organic reason for her intractable pain , except for narcotic pain meds dependency pt continues to cry and scream , rocking back and forth saying she is having severe pain will not survive without IV dilaudid counselling provided she has recovered from ETOH withdrawal , does not need to get dependent with IV narcotic pain meds during hospital stay and experience withdrawal from it on discharge ordered to DC IV Narcotics and Ativan ( unless meets criteria as per AWSS ) Physical Exam Constitutional: + ill appearing; no acute distress and not intoxicated appearing Eyes: + anicteric sclerae ENMT: Mouth: + lip abnormality (Multiple piercing rings in both upper and lower lips) Neck: trachea midline, no thyromegaly Respiratory: normal respiratory effort, lungs clear to auscultation Cardiovascular: RRR, no murmur, no edema Gastrointestinal (Abdomen): normal bowel sounds, soft, nontender, no hepatosplenomegaly Musculoskeletal: no cyanosis or clubbing, extremities motor strength 5/5 Neurologic: PERRL, EOMI, accommodation nl, no face palsy, no dysarthria Psychiatric: Orientation: oriented x 3 Mood: + anxious mood Insight: + poor insight Judgement: + poor judgement Results & Data Vital Signs (Past 12 Hours) Vital Signs Temp Pulse Resp BP Pulse Ox 03/06/19 15:00 37.1 C 99 H 16 115/73 99 03/06/19 11:00 37.0 C 102 H 16 111/72 97 (1) Alcohol intoxication Complication of substance-induced condition: uncomplicated Qualified Code(s): F10.920 - Alcohol use, unspecified with intoxication, uncomplicated
[2019-03-06] MEDS: MULTIVITAMIN TAB PO SCH (20:33)
[2019-03-06] MEDS: VITAMIN B COMPLEX TAB PO SCH (20:33)
[2019-03-06] MEDS: SERTRALINE HCL 50 MG TABLET PO SCH (20:34)
[2019-03-06] MEDS ORDERED: NON-FORMULARY MEDICATION (Melatonin 5 MG) PO SCH (21:00)
[2019-03-06] MEDS ORDERED: LORazepam 0.5 MG/1 ML VIAL IV PRN (23:05)
[2019-03-06] MEDS ORDERED: KETOROLAC TROMETHAMINE 15 MG/ML VIAL IV STA (23:06)
[2019-03-06] MEDS ORDERED: ACETAMINOPHEN 325 MG TAB PO PRN (23:11)
[2019-03-06] MEDS ORDERED: LORazepam 0.5 MG/1 ML VIAL IV ONE (23:15)
[2019-03-06] MEDS ORDERED: POTASSIUM CHLORIDE 40 MEQ in SODIUM CHLORIDE 0.9% 1000ML 1,000 ML IV STA (23:40)
[2019-03-06] MEDS ORDERED: MAGNESIUM SULFATE / D5W 1 GM/100 ML BAG IV ONE (23:50)
[2019-03-07 00:26] LABS: Partial Thromboplastin Time 26.3 Seconds (21.0-31.0)
[2019-03-07 00:36] LABS: Alanine Aminotransferase 38 U/L (12-78); Albumin Level 3.6 gm/dl (3.4-5.0); Alkaline Phosphatase 72 U/L (45-117); Aspartate Aminotransferase 43 U/L (15-37); Bilirubin,Total 0.6 mg/dl (0.2-1); Blood Urea Nitrogen < 1 mg/dl (7-18); Carbon Dioxide 25 mmol/L (21-32); Chloride 100 mmol/L (98-107); Creatinine Clr Calc Pharmacy 144.5 ml/min; Est GFR (African American) > 150.0; Globulin 3.7 gm/dl (2.5-4.0); Glucose 82 mg/dl (70-99); Lipase 91 U/L (73-393); Magnesium 1.6 mg/dl (1.8-2.4); Potassium 2.9 mmol/L (3.5-5.1); Sodium 135 mmol/L (136-145); Total Protein 7.3 gm/dl (6.4-8.2); Troponin I < 0.015 ng/ml (0-0.045)
[2019-03-07] MEDS ORDERED: POTASSIUM CHLORIDE 20 MEQ TABCR PO STA (02:05)
[2019-03-07] MEDS ORDERED: MAGNESIUM SULFATE / D5W 1 GM/100 ML BAG IV ONE (02:30)
[2019-03-07 07:18] LABS: Hematocrit (blood only) 35.5 % (37-47); Hemoglobin 12.3 g/dL (12.0-16.0); Mean Corpuscular Hgb Conc 34.6 g/dL (32-36); Mean Corpuscular Volume 89.4 fL (80-100); RDW Coefficient of Variation 15.1 % (11.5-14.5); RDW Standard Deviation 48.8 fL (36.4-46.3); Red Blood Count 3.97 M/uL (4.2-5.4); White Blood Count 5.11 K/uL (4.8-10.8)
[2019-03-07 07:22] LABS: Mean Platelet Volume 10.1 fL (7.4-10.4); Platelet Count 64 K/uL (130-400)
[2019-03-07 07:48] LABS: Alanine Aminotransferase 40 U/L (12-78); Albumin Level 3.5 gm/dl (3.4-5.0); Aspartate Aminotransferase 54 U/L (15-37); Blood Urea Nitrogen 1 mg/dl (7-18); Carbon Dioxide 27 mmol/L (21-32); Chloride 104 mmol/L (98-107); Creatinine Clr Calc Pharmacy 162.9 ml/min; Est GFR (African American) > 150.0; Est GFR (Non-African American) 136.3; Glucose 82 mg/dl (70-99); Potassium 3.9 mmol/L (3.5-5.1); Sodium 137 mmol/L (136-145)
[2019-03-07 07:52] LABS: Alkaline Phosphatase 71 U/L (45-117); Bilirubin,Total 0.6 mg/dl (0.2-1); Globulin 3.6 gm/dl (2.5-4.0); Total Protein 7.1 gm/dl (6.4-8.2)
[2019-03-07] MEDS: KETOROLAC TROMETHAMINE 15 MG/ML VIAL IV PRN ×3 (07:52→19:31)
[2019-03-07] MEDS: THIAMINE HCL 100 MG TAB PO SCH (07:53)
[2019-03-07] MEDS: CEROVITE ADV FORMULA TAB PO SCH (07:53)
[2019-03-07] MEDS: FOLIC ACID 1 MG TAB PO SCH (07:55)
[2019-03-07] MEDS: PANTOprazole 40 MG TAB PO SCH ×2 (07:55→20:41)
[2019-03-07 08:17] LABS: Codeine Urine NEGATIVE NG/ML (CUTOFF=50); Hydrocodone Urine NEGATIVE NG/ML (CUTOFF=50); Hydromor Urine NEGATIVE NG/ML (CUTOFF=50); Marijuana Quant, GCMS Urine 143 NG/ML (CUTOFF=5); Morphine Urine 4680 NG/ML (CUTOFF=50); Norhydrocodone Conf Ur NEGATIVE NG/ML (CUTOFF=50); Noroxycodone Urine NEGATIVE NG/ML (CUTOFF=50); Oxycodone Urine NEGATIVE NG/ML (CUTOFF=50); Oxymorph Urine NEGATIVE NG/ML (CUTOFF=50)
[2019-03-07] MEDS: GABAPENTIN 600 MG TAB PO SCH (09:53)
[2019-03-07] MEDS ORDERED: IBUPROFEN 200 MG TAB PO PRN (10:56)
[2019-03-07] MEDS: ONDANSETRON INJ 2 MG/ML 2 ML VIAL IV PRN (15:21)
--- NOTE | 2019-03-07 18:24 | Hospitalist Progress Note ---
Date of Service March 07, 2019 Assessment & Plan (1) Alcohol abuse: Admitted this time with alcohol withdrawal with blood alcohol level 278/urine drug screen positive for marijuana on Gabapentin protocol day 3/4 no signs of overt withdrawal continue protocol Psych on board (2) Alcohol intoxication: management per above CT abdomen pelvis shows no evidence of pancreatitis, normal lipase level (+) abdominal pain check Lipase level Anxiety disorder Reports of severe anxiety attacks, requesting Ativan Recommended using Vistaril 25 mg every 4 hours as needed for anxiety Continue on Zoloft Psych on board, awaiting Gabapentin protocol to be completed prior to evaluating patient Alcoholic liver disease per Dr. Mcintosh notes: Secondary to chronic heavy alcohol abuse CT abdomen pelvis shows hepatic steatosis Pancytopenia/thrombocytopenia severe alcohol abuse/starvation ketoacidosis alcoholic cirrhosis Patient was evaluated by GI in the past, received counseling numerous times for alcohol abstinence Patient has failed to comply Lactic acidosis Lactic acid level normalized with IV fluids ELECTROLYTE DERANGEMENT Follow electrolytes CODE STATUS: Full code Disposition: patient requesting to be transferred to [place] Subjective delayed entry date of service as noted above seen earlier during the day, with RN at bedside throughout whole encounter patient tearful, upset said she just spoke with her mother, and she will not listen to her, and this made her upset, then anxious, then have headache, chest pain, abdominal pain i reassured her and let her know i'll be back to evaluate her when she is more relaxed received from RN that patient was having chest pain seen with RN at bedside throughout whole encounter again resting , sitting up, appears comfortable main complaint is mild epigastric pain radiating to the back no other associated symptoms tolerating diet well denies other symptoms Review of Systems Review of Systems: All systems reviewed & are unremarkable except as noted in HPI & below Physical Exam Physical Exam: General- oriented x 3, not in distress, speaks in sentences with no effort or accessory muscle use Head- atraumatic Eyes- PERRL, EOMI, anicteric ENT- oropharynx clear Neck- supple, no JVD, no adenopathy, no thyromegaly; carotids +2/2, no bruits appreciated Lungs- clear to auscultation bilaterally, no rales/wheezes Heart- normal rate, regular rhythm; no murmur, no gallop, no rub appreciated Abdomen- normal bowel sounds, nondistended, soft, (+) mild epigastric tenderness, no masses or hepatosplenomegaly Extremities- no pretibial edema, no calf tenderness; peripheral pulses intact Neuro- alert, oriented x 3; CN 2-12 grossly intact; motor 5/5 bilaterally;sensation 100% on all extremities; no other gross focal neurologic deficits Skin- warm & dry Results & Data Vital Signs (Past 12 Hours) Vital Signs Temp Pulse Resp BP BP Pulse Ox 03/07/19 17:11 125 H 22 116/78 99 03/07/19 15:43 36.8 C 115 H 20 114/76 99 03/07/19 08:18 36.7 C 106 H 20 131/86 98 Laboratory Results Laboratory Results - last 24 hr 03/07/19 03/08/19 03/08/19 19:53 06:46 06:46 WBC 4.09 L RBC 3.74 L Hgb 11.5 L Hct 33.5 L MCV 89.6 MCH 30.7 MCHC 34.3 RDW Std Deviation 49.4 H RDW Coeff of Nayana 15.6 H Plt Count 69 L MPV 8.8 Platelet Estimate Decreased L Sodium 138 Potassium 3.8 Chloride 108 H Carbon Dioxide 25 Anion Gap 6.0 BUN 2 L Creatinine 0.45 L Est Cr Clr Drug Dosing 170.2 Est GFR ( Amer) > 150.0 Est GFR (Non-Af Amer) 138.3 BUN/Creatinine Ratio 5.3 L Glucose 92 Calcium 9.1 Total Bilirubin 0.4 AST 38 H ALT 37 Alkaline Phosphatase 65 Total Protein 6.5 Albumin 3.3 L Globulin 3.2 Albumin/Globulin Ratio 1.0 Lipase 216 (1) Alcohol intoxication Complication of substance-induced condition: uncomplicated Qualified Code(s): F10.920 - Alcohol use, unspecified with intoxication, uncomplicated
[2019-03-07] MEDS: SODIUM CHLORIDE 0.9% 1000ML 1,000 ML IV SCH (19:31)
[2019-03-07] MEDS: MULTIVITAMIN TAB PO SCH (20:41)
[2019-03-07] MEDS: VITAMIN B COMPLEX TAB PO SCH (20:42)
[2019-03-07] MEDS: SERTRALINE HCL 50 MG TABLET PO SCH (20:43)
[2019-03-08] MEDS: KETOROLAC TROMETHAMINE 15 MG/ML VIAL IV PRN ×3 (02:27→13:47)
[2019-03-08] MEDS: SODIUM CHLORIDE 0.9% 1000ML 1,000 ML IV SCH ×3 (02:59→21:16)
[2019-03-08 07:12] LABS: Hematocrit (blood only) 33.5 % (37-47); Hemoglobin 11.5 g/dL (12.0-16.0); Mean Corpuscular Hemoglobin 30.7 pg (25-34); Mean Corpuscular Hgb Conc 34.3 g/dL (32-36); Mean Corpuscular Volume 89.6 fL (80-100); RDW Coefficient of Variation 15.6 % (11.5-14.5); RDW Standard Deviation 49.4 fL (36.4-46.3); Red Blood Count 3.74 M/uL (4.2-5.4); White Blood Count 4.09 K/uL (4.8-10.8)
[2019-03-08 07:40] LABS: Mean Platelet Volume 8.8 fL (7.4-10.4); Platelet Count 69 K/uL (130-400)
[2019-03-08 07:41] LABS: Platelet Estimate Decreased (Normal)
[2019-03-08 07:44] LABS: Alanine Aminotransferase 37 U/L (12-78); Albumin Level 3.3 gm/dl (3.4-5.0); Aspartate Aminotransferase 38 U/L (15-37); BUN Creatinine Ratio 5.3 (10-20); Blood Urea Nitrogen 2 mg/dl (7-18); Calcium 9.1 mg/dl (8.5-10.1); Carbon Dioxide 25 mmol/L (21-32); Chloride 108 mmol/L (98-107); Creatinine Clr Calc Pharmacy 170.2 ml/min; Est GFR (African American) > 150.0; Est GFR (Non-African American) 138.3; Glucose 92 mg/dl (70-99); Potassium 3.8 mmol/L (3.5-5.1); Sodium 138 mmol/L (136-145)
[2019-03-08 07:47] LABS: Alkaline Phosphatase 65 U/L (45-117); Bilirubin,Total 0.4 mg/dl (0.2-1); Globulin 3.2 gm/dl (2.5-4.0); Total Protein 6.5 gm/dl (6.4-8.2)
[2019-03-08] MEDS: THIAMINE HCL 100 MG TAB PO SCH (08:26)
[2019-03-08] MEDS: CEROVITE ADV FORMULA TAB PO SCH (08:26)
[2019-03-08] MEDS: FOLIC ACID 1 MG TAB PO SCH (08:26)
[2019-03-08] MEDS: PANTOprazole 40 MG TAB PO SCH ×2 (08:26→21:11)
[2019-03-08] MEDS: ONDANSETRON INJ 2 MG/ML 2 ML VIAL IV PRN ×2 (08:27→18:37)
[2019-03-08] MEDS ORDERED: BENZONATATE 100 MG CAPSULE PO PRN (09:44)
[2019-03-08] MEDS ORDERED: XOPENEX/ATROVENT 0.63mg/0.5MG NEB COMBO NEB SCH (09:45)
--- NOTE | 2019-03-08 09:56 | Hospitalist Progress Note ---
Date of Service March 08, 2019 Assessment & Plan (1) Alcohol abuse: Admitted this time with alcohol withdrawal with blood alcohol level 278/urine drug screen positive for marijuana on Gabapentin protocol day 08/17 no signs of overt withdrawal continue protocol Psych on board--> seb request re-evaluation today (2) Alcohol intoxication: management per above CT abdomen pelvis shows no evidence of pancreatitis, normal lipase level (+) abdominal pain- resolved repeat Lipase level: normal Anxiety disorder on Vistaril 25 mg every 4 hours as needed for anxiety, on usual Zoloft reports persistent anxiety will request Psych to re-evaluate patient today Cough, r/o Pneumonia CXR sputum culture Nebs Doxycycline PO Tessalon pearls Alcoholic Liver Disease per Dr. Mcintosh notes: Secondary to chronic heavy alcohol abuse CT abdomen pelvis shows hepatic steatosis Pancytopenia/thrombocytopenia severe alcohol abuse/starvation ketoacidosis alcoholic cirrhosis Patient was evaluated by GI in the past, received counseling numerous times for alcohol abstinence Patient has failed to comply Lactic Acidosis Lactic acid level normalized with IV fluids CODE STATUS: Full code Disposition: patient requesting to be [facility] to [facility] for alcohol intoxication/abuse seen with ANNETTE Leung at bedside throughout whole encounter (+) cough, productive of yellow sputum since last night associated with some dyspnea, chest pain with coughing reports anxiety is about the same as yesterday no tremors, sweats observed no abdominal pain, tolerating diet well denies other symptoms Review of Systems Review of Systems: All systems reviewed & are unremarkable except as noted in HPI & below Physical Exam Physical Exam: General- oriented x 3, not in distress, speaks in sentences with no effort or accessory muscle use Eyes- anicteric Neck- no JVD Lungs- (+) rales/rhonchi at the bases, no wheezing Heart- normal rate, regular rhythm; no murmurs Abdomen- normal bowel sounds, nondistended, soft, nontender Extremities- no pretibial edema, no calf tenderness Neuro- alert, oriented x 3; no gross focal neurologic deficits Skin- warm & dry Results & Data Vital Signs (Past 12 Hours) Vital Signs Temp Pulse Resp BP Pulse Ox 03/08/19 07:47 36.5 C 83 18 102/56 L 97 03/07/19 23:09 36.8 C 97 H 20 116/83 98 Laboratory Results Laboratory Results - last 24 hr 10/23/19 10/24/19 10/24/19 19:53 06:46 06:46 WBC 4.09 L RBC 3.74 L Hgb 11.5 L Hct 33.5 L MCV 89.6 MCH 30.7 MCHC 34.3 RDW Std Deviation 49.4 H RDW Coeff of Nayana 15.6 H Plt Count 69 L MPV 8.8 Platelet Estimate Decreased L Sodium 138 Potassium 3.8 Chloride 108 H Carbon Dioxide 25 Anion Gap 6.0 BUN 2 L Creatinine 0.45 L Est Cr Clr Drug Dosing 170.2 Est GFR ( Amer) > 150.0 Est GFR (Non-Af Amer) 138.3 BUN/Creatinine Ratio 5.3 L Glucose 92 Calcium 9.1 Total Bilirubin 0.4 AST 38 H ALT 37 Alkaline Phosphatase 65 Total Protein 6.5 Albumin 3.3 L Globulin 3.2 Albumin/Globulin Ratio 1.0 Lipase 216 (1) Alcohol intoxication Complication of substance-induced condition: uncomplicated Qualified Code(s): F10.920 - Alcohol use, unspecified with intoxication, uncomplicated
[2019-03-08] MEDS ORDERED: GABAPENTIN 600 MG TAB PO SCH (10:00)
[2019-03-08] MEDS: LEVALBUTEROL HCL 0.63 MG/3 ML NEB NEB SCH ×4 (10:35→18:58)
[2019-03-08] MEDS: IPRATROPIUM BROMIDE NEB SOLN 0.02% 2.5 ML VIAL INH SCH ×4 (10:35→18:58)
[2019-03-08] MEDS: DOXYCYCLINE HYCLATE 100 MG CAP PO SCH ×2 (10:50→21:11)
--- NOTE | 2019-03-08 10:59 | XRay Report ---
TWO VIEW CHEST CLINICAL HISTORY: Dyspnea. FINDINGS: PA and lateral chest radiographs are compared to study dated 03/04/2019 and correlated with chest CT dated 03/05/2019. The cardiomediastinal silhouette is unremarkable. A calcified granuloma i s again seen in the right upper lobe. The lungs and pleural spaces are otherwise clear. There is no p neumothorax. The bony thorax appears intact. IMPRESSION: No active disease in the chest. Electronically signed by: Fermin Hui M.D. 03/08/2019 10:58 AM
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
[2019-03-08] MEDS ORDERED: LORazepam 0.5 MG TAB PO STA (19:04)
[2019-03-08] MEDS: TRAMADOL HCL 50 MG TABLET PO PRN (19:29)
[2019-03-08] MEDS: MULTIVITAMIN TAB PO SCH (21:11)
[2019-03-08] MEDS: VITAMIN B COMPLEX TAB PO SCH (21:12)
[2019-03-08] MEDS: SERTRALINE HCL 50 MG TABLET PO SCH (21:12)
[2019-03-09] MEDS: LEVALBUTEROL HCL 0.63 MG/3 ML NEB NEB SCH ×4 (01:12→19:02)
[2019-03-09] MEDS: IPRATROPIUM BROMIDE NEB SOLN 0.02% 2.5 ML VIAL INH SCH ×4 (01:12→19:04)
[2019-03-09] MEDS: TRAMADOL HCL 50 MG TABLET PO PRN ×4 (03:10→21:00)
[2019-03-09] MEDS: SODIUM CHLORIDE 0.9% 1000ML 1,000 ML IV SCH ×2 (07:16→16:58)
[2019-03-09] MEDS: THIAMINE HCL 100 MG TAB PO SCH (07:17)
[2019-03-09] MEDS: DOXYCYCLINE HYCLATE 100 MG CAP PO SCH ×2 (07:18→21:02)
[2019-03-09] MEDS: PANTOprazole 40 MG TAB PO SCH ×2 (07:18→21:01)
[2019-03-09] MEDS: CEROVITE ADV FORMULA TAB PO SCH (07:18)
[2019-03-09] MEDS: FOLIC ACID 1 MG TAB PO SCH (07:18)
[2019-03-09] MEDS: ONDANSETRON INJ 2 MG/ML 2 ML VIAL IV PRN ×2 (07:56→19:31)
[2019-03-09] MEDS: LORazepam 1 MG/2 ML VIAL IV PRN (20:09)
[2019-03-09] MEDS: MULTIVITAMIN TAB PO SCH (21:01)
[2019-03-09] MEDS: SERTRALINE HCL 50 MG TABLET PO SCH (21:02)
[2019-03-09] MEDS: VITAMIN B COMPLEX TAB PO SCH (21:02)
[2019-03-10] MEDS: IPRATROPIUM BROMIDE NEB SOLN 0.02% 2.5 ML VIAL INH SCH ×2 (01:37→07:11)
[2019-03-10] MEDS: LEVALBUTEROL HCL 0.63 MG/3 ML NEB NEB SCH ×2 (01:38→07:11)
[2019-03-10] MEDS: SODIUM CHLORIDE 0.9% 1000ML 1,000 ML IV SCH (02:33)
[2019-03-10] MEDS: TRAMADOL HCL 50 MG TABLET PO PRN (03:11)
[2019-03-10] MEDS: DOXYCYCLINE HYCLATE 100 MG CAP PO SCH (08:13)
[2019-03-10] MEDS: THIAMINE HCL 100 MG TAB PO SCH (08:13)
[2019-03-10] MEDS: FOLIC ACID 1 MG TAB PO SCH (08:13)
[2019-03-10] MEDS: PANTOprazole 40 MG TAB PO SCH (08:15)
[2019-03-10] MEDS: CEROVITE ADV FORMULA TAB PO SCH (08:16)
--- NOTE | 2019-03-10 08:17 | Hospitalist Progress Note ---
Date of Service delayed entry date of service 02/27/19 March 10, 2019 Assessment & Plan (1) Alcohol abuse: Admitted this time with alcohol withdrawal with blood alcohol level 278/urine drug screen positive for marijuana Completed Gabapentin Taper protocol no signs of overt withdrawal Psych on board--> Recommendations: Continue sertraline 50mg; no changes recommended at this time - Recommending referral to a dual diagnosis inpatient D&A rehab facility; patient agreeable at this time - No criteria for an inpatient psychiatric admission, as primary diagnosis remains alcohol abuse disorder and the patient able to contract for safety (2) Alcohol intoxication: management per above CT abdomen pelvis shows no evidence of pancreatitis, normal lipase level (+) abdominal pain- resolved repeat Lipase level: normal Anxiety disorder on Vistaril 25 mg every 4 hours as needed for anxiety, on usual Zoloft reports persistent anxiety Psych on board Acute bronchitis CXR: No pneumonia sputum culture: Gram Stain Final 03/09/19-0754 Gram Stain Result Many WBCs Seen Few Epithelial Cells Many Gram Positive Cocci Moderate Gram Negative Bacilli Rare Gram Positive Bacilli Rare Gram Negative Cocci Sputum Culture Preliminary 03/09/19-1302 Organism 1 Staphylococcus aureus Quantity Moderate Sens Sensitivities to Follow Normal Lola Heavy Normal Lola Nebs given Doxycycline 100mg PO BID given x 2 days Radha lares --- improving Alcoholic Liver Disease per Dr. Mcintosh notes: Secondary to chronic heavy alcohol abuse CT abdomen pelvis shows hepatic steatosis Pancytopenia/thrombocytopenia severe alcohol abuse/starvation ketoacidosis alcoholic cirrhosis Patient was evaluated by GI in the past, received counseling numerous times for alcohol abstinence Patient has failed to comply Lactic Acidosis Lactic acid level normalized with IV fluids CODE STATUS: Full code Disposition: patient accepted to [facility] Subjective Follow-up for alcoholism, bronchitSeen with RN nurse at the bedside throughout whole encounter next States that she feels improved compared to previous day Less coughing, no shortness of breath, less sputum Chest pain also improving Anxiety under good control, denies palpitations, dizziness No other symptoms Review of Systems Review of Systems: All systems reviewed & are unremarkable except as noted in HPI & below Physical Exam Physical Exam: General- oriented x 3, not in distress, speaks in sentences with no effort or accessory muscle use Eyes- anicteric Neck- no JVD Lungs- clear breath sounds No crackles, no wheezing bilaterally Heart- normal rate, regular rhythm; no murmurs Abdomen- normal bowel sounds, nondistended, soft, nontender Extremities- no pretibial edema, no calf tenderness Neuro- alert, oriented x 3; no gross focal neurologic deficits Skin- warm & dry Results & Data Vital Signs (Past 12 Hours) Vital Signs Temp Pulse Resp BP Pulse Ox 03/10/19 07:59 36.4 C L 106 H 20 114/77 100 03/10/19 07:11 16 03/09/19 23:45 36.7 C 98 H 18 117/79 98 (1) Alcohol intoxication Complication of substance-induced condition: uncomplicated Qualified Code(s): F10.920 - Alcohol use, unspecified with intoxication, uncomplicated
--- NOTE | 2019-03-10 08:32 | XRay Report ---
XR chest 1V portable CLINICAL HISTORY: ff up, cough COMPARISON STUDY: Chest CT March 05, 2019. Chest radiograph March 08, 2019. FINDINGS: Lung volumes are normal. Lungs are clear. There is no pneumothorax or pleural effusion. Car diac size is normal. Mediastinal contours are normal. There is no evidence for pulmonary edema. Calci fied granuloma within the right upper lobe is noted. IMPRESSION: No acute cardiopulmonary findings. Electronically signed by: Nathanael Jurado M.D. 03/10/2019 8:31 AM
--- NOTE | 2019-03-10 08:32 | Hospitalist Progress Note ---
Date of Service March 10, 2019 Assessment & Plan (1) Alcohol abuse: Admitted this time with alcohol withdrawal with blood alcohol level 278/urine drug screen positive for marijuana Completed Gabapentin Taper protocol no signs of overt withdrawal Psych consulted--> Recommendations: Continue sertraline 50mg; no changes recommended at this time - Recommending referral to a dual diagnosis inpatient D&A rehab facility; patient agreeable at this time - No criteria for an inpatient psychiatric admission, as primary diagnosis remains alcohol abuse disorder and the patient able to contract for safety (2) Alcohol intoxication: management per above CT abdomen pelvis shows no evidence of pancreatitis, normal lipase level (+) abdominal pain- resolved repeat Lipase level: normal Anxiety disorder on Vistaril 25 mg every 4 hours as needed for anxiety, on usual Zoloft Psych consulted, recommendations per #1 Acute bronchitis CXR: No pneumonia sputum culture: Gram Stain Final 03/09/197195 Gram Stain Result Many WBCs Seen Few Epithelial Cells Many Gram Positive Cocci Moderate Gram Negative Bacilli Rare Gram Positive Bacilli Rare Gram Negative Cocci Sputum Culture Preliminary 03/09/19-1300 Organism 1 Staphylococcus aureus Quantity Moderate Sens Sensitivities to Follow Normal Lola Heavy Normal Lola Nebs given Doxycycline 100mg PO BID given x 2 days Tessalon pearls -- Improving Discharge plan: Doxycycline 100 mg p.o. twice daily x5 days Augmentin 875 mg p.o. twice daily x7 days Albuterol as needed for shortness of breath Tessalon Perles as needed for cough Alcoholic Liver Disease per Dr. Mcintosh notes: Secondary to chronic heavy alcohol abuse CT abdomen pelvis shows hepatic steatosis Patient was evaluated by GI in the past, received counseling numerous times for alcohol abstinence Patient has failed to comply Lactic Acidosis Lactic acid level normalized with IV fluids Thrombocytopenia, mild anemia Secondary to alcoholism Chronic No signs of bleeding CODE STATUS: Full code Disposition: patient accepted to [facility] Subjective Follow-up for alcoholism, acute bronchitis Seen with ANNETTE Nguyen throughout whole encounter In bed, not in distress, comfortable No shortness of breath, less cough, and sputum, less chest pain Anxiety under better control Denies other symptoms Review of Systems Review of Systems: All systems reviewed & are unremarkable except as noted in HPI & below Physical Exam Physical Exam: General- oriented x 3, not in distress, speaks in sentences with no effort or accessory muscle use Eyes- anicteric Neck- no JVD Lungs- clear breath sounds bilaterally, No crackles, no rhonchi bilaterally Heart- normal rate, regular rhythm; no murmurs Abdomen- normal bowel sounds, nondistended, soft, nontender Extremities- no pretibial edema, no calf tenderness Neuro- alert, oriented x 3; no gross focal neurologic deficits Skin- warm & dry Results & Data Vital Signs (Past 12 Hours) Vital Signs Temp Pulse Resp BP Pulse Ox 03/10/19 07:59 36.4 C L 106 H 20 114/77 100 03/10/19 07:11 16 03/09/19 23:45 36.7 C 98 H 18 117/79 98 (1) Alcohol intoxication Complication of substance-induced condition: uncomplicated Qualified Code(s): F10.920 - Alcohol use, unspecified with intoxication, uncomplicated
[2019-03-10] MEDS ORDERED: LORazepam 0.5 MG TAB PO STA (08:48)
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
[2019-03-10] MEDS: ONDANSETRON INJ 2 MG/ML 2 ML VIAL IV PRN (08:55)
== END 2019-03-10 09:35 | disposition alcohol treatment (31) | DRG 392 ==
LOC: ED 16:27 → 2N 20:09 → SUATTDRO 20:09 → 2N 20:40

== ENCOUNTER 2019-09-16 07:51 | Inpatient (IN) ==
[2019-09-16] MEDS ORDERED: MoRPHine SULFATE 4 MG/ML 1 ML CARP\\VIAL IV STA ×2 (08:34→09:26)
--- NOTE | 2019-09-16 08:42 | Emergency Department Note ---
Impression & Plan Inadequate pain control, Closed fracture of left wrist, Closed fracture of right elbow, Fall from height of greater than 3 feet ED Provider Note CHIEF COMPLAINT: Fall, bilateral arm injuries HISTORY OF PRESENTING ILLNESS: This is a 24-year-old female who presents to the emergency department by private vehicle with complaint of bilateral arm injuries after a fall that occurred last night. Patient states that she was "goofing around with friends" and climbing a shipping container, she states when she started to get down she slipped and fell backwards, landing on her left wrist and right elbow as well as her lower back. She is complaining of severe pain in both of her arms and states that "it hurts everywhere." She states the pain is worst in her right elbow and left wrist, she describes the pain as constant, throbbing, worse with movement, better with rest, and currently rates the pain 10/10. She is right-hand dominant. She reports that her tetanus is up-to-date. She states that she hit the back of her head but she did not have loss of consciousness. She denies a headache, but does note some posterior neck pain. She denies chest pain, back pain, abdominal pain, shortness of breath, dizziness or syncope. She denies any vision changes. She denies any nausea or vomiting. She notes a history of heroin abuse, she states she was in rehab last year about 6 months ago and states that she has been clean ever since. She denies any other alcohol or drug use. REVIEW OF SYSTEMS: A complete 10 point review of systems was reviewed with the patient with pertinent positives and negatives as per history of present illness. All else were negative. PAST MEDICAL HISTORY: History of polysubstance abuse, including alcohol, marijuana, and nasal heroin, denies IV drug abuse SOCIAL HISTORY: Lives at home, she is a current everyday smoker, denies any current alcohol or drug use ALLERGIES: No known drug allergies PHYSICAL EXAM: VITAL SIGNS: Vital signs and nursing notes were reviewed. GENERAL: Cooperative, in no acute distress, but appears significantly uncomfortable from pain in his crying. Communicates well with provider and answers questions appropriately. HEAD: Normocephalic, Atraumatic. No Moreno's Sign or Raccoon's Eyes. No depressed skull fractures palpable. EYES: PERRL with EOMI bilaterally. Without subconjunctival hemorrhage. Palpebral conjunctiva pink and moist with no injection. EARS: No deformities of external structures noted on gross examination bilaterally. No hemotympanum present. No tympanic perforation noted. NOSE: Midline and without cyanosis. No epistaxis or clear watery discharge noted. Septum midline without deviation. No septal hematoma noted. No overlying ecchymosis noted. MOUTH/OROPHARYNX: Without perioral cyanosis. Tongue midline with equal elevation of palate bilaterally. No blood noted in the oropharynx. No tonsillar hyper trophy, erythema, or exudates noted. No dental fractures noted. NECK: Midline tenderness to palpation over the cervical spinous processes. Bilateral cervical paraspinal muscle tenderness noted. CHEST WALL: No tenderness to palpation of the chest wall, no ecchymosis, abrasions, or palpable crepitus. Chest wall symmetric without accessory muscle use, intercostals retractions, or central cyanosis. LUNGS: Normal vesicular breath sounds CTA B/L. No wheezes, rales, or rhonchi appreciated. Equal expansion bilaterally. HEART: Tachycardic, regular rhythm with normal S1/S2. No murmur, rubs, or gall ops appreciated. Normal peripheral perfusion with 2+ distal pulses in all 4 extremities. ABDOMEN: Soft, nontender, nondistended. Abdominal contour normal without pulsations or visible masses. BS normoactive all four quadrants. SKIN: Superficial abrasion over the right forearm and elbow. No lacerations or puncture wounds noted. Ecchymosis and swelling noted to the left wrist and right elbow. The skin was without rashes, erythema, edema, or warmth. Capillary reflex less than 3 seconds. MUSCULOSKELETAL: There is tenderness over the posterior aspect of the right elbow. There is tenderness with any movement of the right elbow. Pain extends down the arm with some pain on ROM of the wrist and hand. No tenderness to palpation of the wrist. There is no tenderness of the shoulder. The patient is able to move the fingers and give a thumbs up. Thumb-finger opposition difficult due to pain and swelling. There is obvious deformity of the left wrist. There is tenderness and edema over distal portion of the forearm and wrist. There is positive snuff box tenderness. Range of motion is extremely limited due to pain. There is tenderness to palpation of the elbow, hand and fingers. Radial pulse 2+. Of note that is from yesterday and diarrhea and diphtheroids or other have never seen that before and NEUROLOGIC: Alert and oriented x 4. Cranial nerves II through XII grossly intact. Sensory intact to light touch throughout. PSYCH: Cooperates fully with examiner. Pt is very pleasant and interacts well with examiner. ED COURSE AND MEDICAL DECISION MAKING: CC: Patient presenting with complaint of fall and bilateral arm pain DIFFERENTIAL DIAGNOSIS: Includes, but not limited to contusion, hematoma, sprain/strain, fracture, dislocation, intracranial hemorrhage, concussion, cer vical spine injury, among others. INTERPRETATION OF LABS: No leukocytosis, mild anemia, thrombocytopenia, mild hypokalemia, normal renal function, normal liver enzymes. Negative serum . Coagulation factors within normal limits. IMAGING: HEAD CT NONCONTRAST CT DOSE: HISTORY: fall 7 ft, hit head TECHNIQUE: Multiaxial CT images of the head were performed without the use of intravenous contrast. Automated exposure control was utilized for this study. A dose lowering technique was utilized adhering to the principles of ALARA. Comparison: Head CT 03/04/2019. Findings: Mild motion artifact. Mild mucosal thickening within the paranasal sinuses. The mastoid air cells are clear. The calvarium and skull base are intact. The ventricles and sulci are within normal limits. There is no mass, hematoma, midline shift, or acute infarct. Impression: No acute intracranial abnormality. ----- CERVICAL SPINE CT CT DOSE: 1610.69 mGy.cm HISTORY: fall 7 ft, hit head, neck pain TECHNIQUE: Multiaxial CT images of the cervical spine were performed and reformatted in the sagittal and coronal plane without the use of contrast. A dose lowering technique was utilized adhering to the principles of ALARA. COMPARISON: None. FINDINGS: No fractures. No subluxation. Prevertebral soft tissues and the C1-C2 interval are intact. No pneumothorax. IMPRESSION: No fractures within the cervical spine. ----- XR chest 1V portable HISTORY: Fall. Trauma. Bilateral arm pain. eval trauma COMPARISON: Chest 03/10/2019. FINDINGS: Stable calcified granuloma within the right upper lobe. Otherwise, the lungs are clear. No pleural effusions. No pneumothorax. The heart is normal in size. No fractures within the visualized osseous structures. IMPRESSION: No acute process. ----- XR elbow LT min 3V routine, XR wrist LT min 3V routine, XR hand LT min 3V routine CLINICAL HISTORY: Fall. Left elbow, wrists, and hand pain. COMPARISON STUDY: None. FINDINGS: No fracture or dislocation within the left elbow. No elbow effusion. Soft tissue swelling within the left wrist. Nondisplaced ulnar styloid fracture. There is a comminuted and mildly impacted distal radius fracture with intra-articular extension small ossific density dorsal to the carpal bones consistent with a triquetral bone fracture. The distal radius fractures are slightly displaced. No additional fractures identified within the left hand. IMPRESSION: 1. Distal left radius and ulnar styloid fractures. 2. Triquetral bone fracture. 3. No fractures identified within the left elbow or left hand. ----- XR elbow RT min 3V routine, XR wrist RT min 3V routine, XR hand RT min 3V routine CLINICAL HISTORY: Fall. Right arm, wrist, and hand pain. COMPARISON STUDY: None. FINDINGS: Nondisplaced fracture at the olecranon. There is associated elbow effusion. The radial head appears intact. No dislocation. Posterior soft tissue swelling within the right elbow. Questionable dorsal subluxation of the distal ulna, however, this is likely projectional as there is no significant soft tissue swelling. No fractures identified within the right wrist or right hand. IMPRESSION: 1. Nondisplaced fracture at the olecranon of the right elbow. 2. Questionable dorsal subluxation of the distal ulna, however, this is likely projectional as there is no significant soft tissue swelling. Clinical correlation recommended to assess for pain at this location. 3. No fractures identified within the right hand or right wrist. ----- RIGHT ELBOW CT CT DOSE: 183.79 mGy.cm HISTORY: Fall. Right elbow pain. further eval fracture TECHNIQUE: Multiaxial CT images of the right elbow were performed and reformatted in the sagittal and coronal plane without the use of contrast. A dose lowering technique was utilized adhering to the principles of ALARA. COMPARISON: Right elbow 09/16/2019. FINDINGS: Redemonstration of the essentially nondisplaced fracture through the olecranon. This demonstrates up to 3 mm of distraction. The distal humerus and proximal radius appear intact. There is an associated joint effusion and posterior soft tissue swelling. IMPRESSION: Essentially nondisplaced olecranon fracture. ----- LEFT WRIST CT CT DOSE: 167.33 mGy.cm HISTORY: Fall. Left wrist fracture. further eval fracture TECHNIQUE: Multiaxial CT images of the left wrist were performed and reformatted in the sagittal and coronal plane without the use of contrast. A dose lowering technique was utilized adhering to the principles of ALARA. COMPARISON: Left wrist 09/16/2019. FINDINGS: There is again noted a comminuted and impacted fracture of the distal radius which extends into the proximal shaft. The fracture fragments are mildly displaced. The proximal shaft fracture demonstrates up to 4 mm of volar displacement. Small bony fragments dorsal to the scaphoid bone is likely secondary to the fractured radius. The carpal bones appear intact. There is a small fracture at the ulnar styloid. Soft tissue swelling and a small effusion at the wrist. No dislocation. IMPRESSION: Redemonstration of the left distal radius and ulnar styloid fractures as described above. MEDICATION RECONCILIATION: I attest that I have personally reviewed the patient's current medication list. INITIAL VITAL SIGNS REVIEW: I reviewed the patient's initial vital signs and interpret them as follows: T: Afebrile; BP: Normotensive; HR: Tachycardic; RR: Within normal limits; Pulse Ox: Within normal limits on room air. Blood pressure screening: The patient was found to have normal blood pressure on screening and does not require follow-up for repeat blood pressure check. MDM SUMMARY: Patient was evaluated at bedside, history and physical exam performed. Patient is alert and oriented, in no acute distress, but appears significantly uncomfortable from pain crying and screaming from the pain. She is resting in the stretcher. Obvious deformity of the left wrist, moderate swelling and bruising also noted to the right elbow. Neurovascularly intact in both upper extremities. Neurologic exam intact with no focal deficits. No obvious trauma to the face or head. Midline tenderness to palpation of the cervical spine as well as paraspinous muscle tenderness. Patient was placed in a rigid c-collar for C-spine protection. No tenderness of the thoracic or lumbar spine. No abdominal tenderness. Orders were placed at bedside for labs, IV fluid bolus for hydration, IV morphine for pain, plain x-rays of the chest, bilateral elbows, wrists, and hands, as well as CT imaging of the head and cervical spine to evaluate for trauma. Patient discussed with Dr. Ricardo, who agrees with my assessment, plan, and disposition. Labs and imaging reviewed as above, mild anemia and mild thrombocytopenia, normal WBCs. No significant electrolyte abnormalities, normal renal function and liver enzymes. She is not . CT imaging of the head and cervical spine were negative, C-spine was clinically cleared and c-collar was removed. Plain film imaging notable for a left distal radius and ulnar fracture with minimal displacement and a right nondisplaced olecranon fracture. The patient has required several additional doses of IV narcotics for a total of 8 mg morphine and 1.5 mg dilaudid, and she continues to complain of 9/10 pain. The left wrist was placed in a volar and dorsal splint with Ortho-Glass and the right elbow was placed in a posterior long-arm Ortho-Glass splint, these were placed under my supervision and the positions were satisfactory, she was neurovascularly intact upon recheck. Given the patient's inability to use either of her arms, she lives alone and does not have a good support system, and her pain has been significantly difficult to control, I did feel she would benefit from admission. I spoke on the phone with Dr. Wiseman, orthopedic surgery, who will evaluate the patient while she is admitted. [facility], [facility] agreed to evaluate the patient. Patient reassessed multiple times throughout ED stay, she has remained hemodynamically stable and both upper extremities have remained neurovascularly intact on multiple rechecks. She was updated on all results and plan for admission for care and pain management, she verbalized understanding was agreeable to this plan. The patient was stable at time of admission. The chart was completed utilizing [employer] Speech voice recognition software. Grammatical errors, random word insertions, pronoun errors, and incomplete sentences are an occasional consequence of this system due to software limitations, ambient noise, and hardware issues. Any formal questions or concerns about the content, text, or information contained within the body of this dictation should be directly addressed to the nurse practitioner for clarification. Past Med/Surg History Medical History (Updated 09/16/19 @ 13:32 by Tamara Singh PA-C) Alcohol withdrawal (Acute) Mood disorder (Acute) Polysubstance abuse Recurrent pancreatitis (Acute) Surgical History No pertinent past surgical history (Chronic) Social History Preferred Language: Kittitian Communication Ability: Impaired Load Out Worker Required: No Beliefs That Will Affect Care: None Current Living Situation: Other Current Living Situation Comment: roommate Feels Safe at Home: Yes Safety Concerns: Feels Safe At This Time Smoking Status: Current every day smoker Tobacco Type: cigarettes ; Cigarettes Per Day: 10 ; Second Hand Exposure: No ; Hx Alcohol Use: Yes Alcohol type: beer Hx Substance Use: No Allergies Allergies Allergy/AdvReac Type Severity Reaction Status Date / Time amairani Allergy Mild GUMS SWELL Verified 08/30/19 09:33 mushroom Allergy Mild GUMS SWELL Verified 08/30/19 09:33 No Known Drug Allergies Allergy Unknown Unverified 09/16/19 08:20 Home Meds Home Medications Medication Instructions Recorded Confirmed multivitamin 1 tab PO QPM 09/24/18 09/16/19 norgestimate-ethinyl estradiol 1 tab PO DAILY 02/01/19 09/16/19 [Tri-Sprintec (28)] Previous Rx's Medication Instructions Recorded albuterol sulfate 2 puffs INH QID PRN #18 gm 03/10/19 pantoprazole [Protonix] 40 mg PO DAILY 28 Days #28 tab 08/30/19 Results & Data (ED) Vital Signs Vital Signs - 24 hr 09/16/19 07:58 09/16/19 08:00 09/16/19 08:34 Temperature 37 C Temperature Source Oral Oral Pulse Rate 114 H Pulse Rate [Right Finger] Pulse Rhythm Regular Pulse Strength Normal Respiratory Rate 20 Respiratory Effort / Characteristics Non-Labored Spontaneous Respiratory Depth Normal Respiratory Pattern Regular Blood Pressure 122/79 Blood Pressure [Left Arm] Blood Pressure Mean 93 Blood Pressure Mean [Left Arm] Blood Pressure Position [Left Arm] Pulse Oximetry 99 Oxygen Delivery Method Room Air Room Air Oxygen Flow Rate Sepsis Recent Fever Within 48 Hours No Sepsis Action Taken by Nursing No Action Required Oxygen Flow Rate - Titration Pulse Oximetry Post Tiitration 09/16/19 09:36 09/16/19 11:30 09/16/19 12:00 Temperature Temperature Source Pulse Rate Pulse Rate [Right Finger] 115 H 100 H Pulse Rhythm Pulse Strength Respiratory Rate 28 H 16 22 Respiratory Effort / Characteristics Non-Labored Spontaneous Respiratory Depth Normal Respiratory Pattern Regular Blood Pressure Blood Pressure [Left Arm] 128/76 117/79 Blood Pressure Mean Blood Pressure Mean [Left Arm] 93 91 Blood Pressure Position [Left Arm] Lying Pulse Oximetry 99 99 97 Oxygen Delivery Method Room Air Nasal Cannula Room Air Oxygen Flow Rate 2 Sepsis Recent Fever Within 48 Hours Sepsis Action Taken by Nursing Oxygen Flow Rate - Titration 2 Pulse Oximetry Post Tiitration 99 Laboratory Data Result diagrams: 09/16/19 08:45 09/16/19 08:45 Lab Results 09/16/19 09/16/19 09/16/19 Range/Units 08:45 08:45 08:45 WBC 8.62 (4.8-10.8) K/uL RBC 3.76 L (4.2-5.4) M/uL Hgb 11.6 L (12.0-16.0) g/dL Hct 34.2 L (37-47) % MCV 91.0 (80-100) fL MCH 30.9 (25-34) pg MCHC 33.9 (32-36) g/dL RDW Std Deviation 64.6 H (36.4-46.3) fL RDW Coeff of Nayana 19.5 H (11.5-14.5) % Plt Count 100 L (130-400) K/uL MPV 8.6 (7.4-10.4) fL Immature Gran % (Auto) 0.3 % Neut % (Auto) 57.6 % Lymph % (Auto) 31.3 % Wilkinson % (Auto) 9.4 % Eos % (Auto) 1.2 % Baso % (Auto) 0.2 % Immature Gran # (Auto) 0.03 H (0.00-0.02) K/uL Neut # (Auto) 4.96 (1.4-6.5) K/uL Lymph # (Auto) 2.70 (1.2-3.4) K/uL Wilkinson # (Auto) 0.81 H (0.11-0.59) K/uL Eos # (Auto) 0.10 (0-0.5) K/uL Baso # (Auto) 0.02 (0-0.2) K/uL Absolute Nucleated RBC 0.02 H (0-0) K/uL Nucleated RBC % (auto) 0.3 % PT 10.6 (9.0-12.0) Seconds INR 1.0 (0.9-1.1) APTT 24.2 (21.0-31.0) Seconds PTT Ratio 0.9 Sodium 140 (136-145) mmol/L Potassium 3.4 L (3.5-5.1) mmol/L Chloride 109 H (98-107) mmol/L Carbon Dioxide 17 L (21-32) mmol/L Anion Gap 14.0 H (3-11) BUN 8 (7-18) mg/dl Creatinine 0.56 L (0.6-1.2) mg/dl Est Cr Clr Drug Dosing 137.0 ml/min Est GFR ( Amer) 149.1 Est GFR (Non-Af Amer) 128.7 BUN/Creatinine Ratio 13.9 (10-20) Glucose 93 (70-99) mg/dl Calcium 8.2 L (8.5-10.1) mg/dl Total Bilirubin 0.4 (0.2-1) mg/dl AST 61 H (15-37) U/L ALT 75 (12-78) U/L Alkaline Phosphatase 68 (45-117) U/L Total Protein 7.1 (6.4-8.2) gm/dl Albumin 3.8 (3.4-5.0) gm/dl Globulin 3.3 (2.5-4.0) gm/dl Albumin/Globulin Ratio 1.2 (0.9-2) HCG, Qual (Negative) 09/16/19 Range/Units 08:45 WBC (4.8-10.8) K/uL RBC (4.2-5.4) M/uL Hgb (12.0-16.0) g/dL Hct (37-47) % MCV (80-100) fL MCH (25-34) pg MCHC (32-36) g/dL RDW Std Deviation (36.4-46.3) fL RDW Coeff of Nayana (11.5-14.5) % Plt Count (130-400) K/uL MPV (7.4-10.4) fL Immature Gran % (Auto) % Neut % (Auto) % Lymph % (Auto) % Wilkinson % (Auto) % Eos % (Auto) % Baso % (Auto) % Immature Gran # (Auto) (0.00-0.02) K/uL Neut # (Auto) (1.4-6.5) K/uL Lymph # (Auto) (1.2-3.4) K/uL Wilkinson # (Auto) (0.11-0.59) K/uL Eos # (Auto) (0-0.5) K/uL Baso # (Auto) (0-0.2) K/uL Absolute Nucleated RBC (0-0) K/uL Nucleated RBC % (auto) % PT (9.0-12.0) Seconds INR (0.9-1.1) APTT (21.0-31.0) Seconds PTT Ratio Sodium (136-145) mmol/L Potassium (3.5-5.1) mmol/L Chloride (98-107) mmol/L Carbon Dioxide (21-32) mmol/L Anion Gap (3-11) BUN (7-18) mg/dl Creatinine (0.6-1.2) mg/dl Est Cr Clr Drug Dosing ml/min Est GFR ( Amer) Est GFR (Non-Af Amer) BUN/Creatinine Ratio (10-20) Glucose (70-99) mg/dl Calcium (8.5-10.1) mg/dl Total Bilirubin (0.2-1) mg/dl AST (15-37) U/L ALT (12-78) U/L Alkaline Phosphatase (45-117) U/L Total Protein (6.4-8.2) gm/dl Albumin (3.4-5.0) gm/dl Globulin (2.5-4.0) gm/dl Albumin/Globulin Ratio (0.9-2) HCG, Qual Negative (Negative) Administered Medications Fentanyl (Duragesic) 12 mcg TD Q3D@1600 [facility] Stop: 09/30/19 15:59 Last Admin: 09/16/19 16:21 Dose: 12 mcg Documented by: [id number] Miscellaneous (Order Awaiting Action) 1 ea N/A QS [facility] Stop: 10/16/19 15:59 Last Admin: 09/16/19 16:19 Dose: Not Given Documented by: [id number] Miscellaneous (Fentanyl Patch Remove & Waste) 1 ea N/A Q3D [facility] Stop: 10/16/19 15:58 Last Admin: 09/16/19 16:18 Dose: Not Given Documented by: [id number] Morphine Sulfate (Morphine Sulfate) 2 mg IV Q4H PRN PRN Reason: Severe Pain Stop: 09/30/19 14:11 Last Admin: 09/16/19 14:29 Dose: 2 mg Documented by: [id number] Discontinued Medications Hydromorphone HCl (Dilaudid) 1 mg IV NOW STA Stop: 09/16/19 09:56 Last Admin: 09/16/19 10:01 Dose: 1 mg Documented by: [id number] Hydromorphone HCl (Dilaudid) 0.5 mg IV NOW STA Stop: 09/16/19 11:46 Last Admin: 09/16/19 12:04 Dose: 0.5 mg Documented by: [id number] Hydromorphone HCl (Dilaudid) 0.5 mg IV NOW STA Stop: 09/16/19 14:43 Last Admin: 09/16/19 15:04 Dose: 0.5 mg Documented by: [id number] Sodium Chloride (Nss 1000ml) 1,000 mls @ 999 mls/hr IV .Q1H1M CHUN Stop: 09/16/19 09:45 Last Infusion: 09/16/19 10:10 Dose: 0 mls/hr Documented by: [id number] Admin: 09/16/19 08:47 Dose: 999 mls/hr Documented by: [id number] Lorazepam (Ativan) 1 mg PO ONE PRN; Protocol PRN Reason: EtoH Withdrawal AWSS 6-10 Last Admin: 09/16/19 15:04 Dose: 1 mg Documented by: [id number] Morphine Sulfate (Morphine Sulfate) 4 mg IV NOW STA Stop: 09/16/19 08:35 Last Admin: 09/16/19 08:46 Dose: 4 mg Documented by: [id number] Morphine Sulfate (Morphine Sulfate) 4 mg IV NOW STA Stop: 09/16/19 09:27 Last Admin: 09/16/19 09:30 Dose: 4 mg Documented by: [id number] Oxycodone HCl (Roxicodone Immediate Rel) 5 mg PO NOW STA Stop: 09/16/19 13:10 Last Admin: 09/16/19 13:20 Dose: 5 mg Documented by: [id number] Discharge Plan Visit Data *Final* Discharge Date/Time: 09/16/19 13:43 Chief Complaint: Arm Pain Stated Complaint: LT WRIST, RT ELBOW INJURIES ED Provider: Fermin Ricardo ED Midlevel Provider: Maria Antonia Moraes Discharge Problem: Inadequate pain control, Closed fracture of left wrist, Closed fracture of right elbow, Fall from height of greater than 3 feet Patient Disposition: Admitted As Inpatient Discharge Instructions Interventions: ED Discharge Assessment Last Done: 09/16/19 13:43 Discharge Problem: Closed fracture of left wrist Qualifiers: Encounter type: initial encounter Qualified Code(s): S62.102A - Fracture of unspecified carpal bone, left wrist, initial encounter for closed fracture Closed fracture of right elbow Qualifiers: Encounter type: initial encounter Qualified Code(s): S42.401A - Unspecified fracture of lower end of right humerus, initial encounter for closed fracture
[2019-09-16] MEDS ORDERED: SODIUM CHLORIDE 0.9% 1000ML 1,000 ML IV SCH (08:45)
[2019-09-16 08:58] LABS: Basophils # (auto) 0.02 K/uL (0-0.2); Basophils % (auto) 0.2 %; Eosinophils % (auto) 1.2 %; Hematocrit (blood only) 34.2 % (37-47); Hemoglobin 11.6 g/dL (12.0-16.0); Immature Granulocytes # (auto) 0.03 K/uL (0.00-0.02); Immature Granulocytes % (auto) 0.3 %; Lymphocytes % (auto) 31.3 %; Mean Corpuscular Hemoglobin 30.9 pg (25-34); Mean Corpuscular Hgb Conc 33.9 g/dL (32-36); Mean Platelet Volume 8.6 fL (7.4-10.4); Monocytes # (auto) 0.81 K/uL (0.11-0.59); Monocytes % (auto) 9.4 %; Neutrophils # (auto) 4.96 K/uL (1.4-6.5); Neutrophils % (auto) 57.6 %; Nucleated RBC # (auto) 0.02 K/uL (0-0); Nucleated RBC % (auto) 0.3 %; Platelet Count 100 K/uL (130-400); RDW Coefficient of Variation 19.5 % (11.5-14.5); RDW Standard Deviation 64.6 fL (36.4-46.3); Red Blood Count 3.76 M/uL (4.2-5.4); White Blood Count 8.62 K/uL (4.8-10.8)
[2019-09-16 09:07] LABS: Partial Thromboplastin Ratio 0.9; Partial Thromboplastin Time 24.2 Seconds (21.0-31.0); Prothrombin Time 10.6 Seconds (9.0-12.0)
[2019-09-16 09:12] LABS: Pregnancy Test, Serum Negative (Negative)
[2019-09-16 09:17] LABS: Albumin Level 3.8 gm/dl (3.4-5.0); BUN Creatinine Ratio 13.9 (10-20); Calcium 8.2 mg/dl (8.5-10.1); Est GFR (African American) 149.1; Est GFR (Non-African American) 128.7; Potassium 3.4 mmol/L (3.5-5.1)
[2019-09-16 09:18] LABS: Albumin Globulin Ratio 1.2 (0.9-2); Bilirubin,Total 0.4 mg/dl (0.2-1); Globulin 3.3 gm/dl (2.5-4.0); Total Protein 7.1 gm/dl (6.4-8.2)
--- NOTE | 2019-09-16 09:47 | XRay Report ---
XR elbow RT min 3V routine, XR wrist RT min 3V routine, XR hand RT min 3V routine CLINICAL HISTORY: Fall. Right arm, wrist, and hand pain. COMPARISON STUDY: None. FINDINGS: Nondisplaced fracture at the olecranon. There is associated elbow effusion. The radial head appears intact. No dislocation. Posterior soft tissue swelling within the right elbow. Questionable dorsal subluxation of the distal ulna, however, this is likely projectional as there is no significan t soft tissue swelling. No fractures identified within the right wrist or right hand. IMPRESSION: 1. Nondisplaced fracture at the olecranon of the right elbow. 2. Questionable dorsal subluxation of the distal ulna, however, this is likely projectional as there is no significant soft tissue swelling. Clinical correlation recommended to assess for pain at this l ocation. 3. No fractures identified within the right hand or right wrist. ACT 112: Negative or not required by law. Electronically signed by: Sadiq Pace M.D. 09/16/2019 9:46 AM
--- NOTE | 2019-09-16 09:50 | XRay Report ---
XR elbow LT min 3V routine, XR wrist LT min 3V routine, XR hand LT min 3V routine CLINICAL HISTORY: Fall. Left elbow, wrists, and hand pain. COMPARISON STUDY: None. FINDINGS: No fracture or dislocation within the left elbow. No elbow effusion. Soft tissue swelling w ithin the left wrist. Nondisplaced ulnar styloid fracture. There is a comminuted and mildly impacted distal radius fracture with intra-articular extension small ossific density dorsal to the carpal bone s consistent with a triquetral bone fracture. The distal radius fractures are slightly displaced. No additional fractures identified within the left hand. IMPRESSION: 1. Distal left radius and ulnar styloid fractures. 2. Triquetral bone fracture. 3. No fractures identified within the left elbow or left hand. ACT 112: Negative or not required by law. Electronically signed by: Sadiq Pace M.D. 09/16/2019 9:49 AM
--- NOTE | 2019-09-16 09:52 | XRay Report ---
XR chest 1V portable HISTORY: Fall. Trauma. Bilateral arm pain. eval trauma COMPARISON: Chest 03/10/2019. FINDINGS: Stable calcified granuloma within the right upper lobe. Otherwise, the lungs are clear. No pleural effusions. No pneumothorax. The heart is normal in size. No fractures within the visualized o sseous structures. IMPRESSION: No acute process. ACT 112: Negative or not required by law. Electronically signed by: Sadiq Pace M.D. 09/16/2019 9:51 AM
[2019-09-16] MEDS ORDERED: HYDROmorphone INJ 1 MG/ML SYRINGE IV STA ×2 (09:55→18:51)
--- NOTE | 2019-09-16 10:00 | CT Scan Report ---
HEAD CT NONCONTRAST CT DOSE: HISTORY: fall 7 ft, hit head TECHNIQUE: Multiaxial CT images of the head were performed without the use of intravenous contrast. A utomated exposure control was utilized for this study. A dose lowering technique was utilized adheri ng to the principles of ALARA. Comparison: Head CT 03/04/2019. Findings: Mild motion artifact. Mild mucosal thickening within the paranasal sinuses. The mastoid air cells are clear. The calvarium and skull base are intact. The ventricles and sulci are within normal limits. There is no mass, hematoma, midline shift, or acute infarct. Impression: No acute intracranial abnormality. ACT 112: Negative or not required by law. Electronically signed by: Sadiq Pace M.D. 09/16/2019 9:59 AM
--- NOTE | 2019-09-16 10:06 | CT Scan Report ---
CERVICAL SPINE CT CT DOSE: 1610.69 mGy.cm HISTORY: fall 7 ft, hit head, neck pain TECHNIQUE: Multiaxial CT images of the cervical spine were performed and reformatted in the sagittal and coronal plane without the use of contrast. A dose lowering technique was utilized adhering to th e principles of ALARA. COMPARISON: None. FINDINGS: No fractures. No subluxation. Prevertebral soft tissues and the C1-C2 interval are intact. No pneumothorax. IMPRESSION: No fractures within the cervical spine. ACT 112: Negative or not required by law. Electronically signed by: Sadiq Pace M.D. 09/16/2019 10:04 AM
[2019-09-16] MEDS ORDERED: HYDROmorphone INJ 0.5 MG/0.5 ML SYR IV STA ×3 (11:45→22:34)
--- NOTE | 2019-09-16 12:32 | CT Scan Report ---
LEFT WRIST CT CT DOSE: 167.33 mGy.cm HISTORY: Fall. Left wrist fracture. further eval fracture TECHNIQUE: Multiaxial CT images of the left wrist were performed and reformatted in the sagittal and coronal plane without the use of contrast. A dose lowering technique was utilized adhering to the pr inciples of ADRIANA. COMPARISON: Left wrist 09/16/2019. FINDINGS: There is again noted a comminuted and impacted fracture of the distal radius which extends into the proximal shaft. The fracture fragments are mildly displaced. The proximal shaft fracture dem onstrates up to 4 mm of volar displacement. Small bony fragments dorsal to the scaphoid bone is likel y secondary to the fractured radius. The carpal bones appear intact. There is a small fracture at the ulnar styloid. Soft tissue swelling and a small effusion at the wrist. No dislocation. IMPRESSION: Redemonstration of the left distal radius and ulnar styloid fractures as described above. ACT 112: Negative or not required by law. Electronically signed by: Sadiq Pace M.D. 09/16/2019 12:31 PM
--- NOTE | 2019-09-16 12:34 | CT Scan Report ---
RIGHT ELBOW CT CT DOSE: 183.79 mGy.cm HISTORY: Fall. Right elbow pain. further eval fracture TECHNIQUE: Multiaxial CT images of the right elbow were performed and reformatted in the sagittal and coronal plane without the use of contrast. A dose lowering technique was utilized adhering to the p rinciples of ADRIANA. COMPARISON: Right elbow 09/16/2019. FINDINGS: Redemonstration of the essentially nondisplaced fracture through the olecranon. This demons trates up to 3 mm of distraction. The distal humerus and proximal radius appear intact. There is an a ssociated joint effusion and posterior soft tissue swelling. IMPRESSION: Essentially nondisplaced olecranon fracture. ACT 112: Negative or not required by law. Electronically signed by: Sadiq Pace M.D. 09/16/2019 12:33 PM
[2019-09-16] MEDS ORDERED: OXYCODONE HCL IR 5 MG TAB (IMMEDIATE RELEASE) PO STA (13:09)
--- NOTE | 2019-09-16 13:27 | History & Physical Report ---
Date of Service September 16, 2019 Assessment & Plan (1) Closed fracture of left wrist: ED provider spoke with ortho on-call who recommended CT in advance of potential surgical intervention - ordered by ED and results on chart - Consult orthopedics for recommendations - splints applied in ED - Pain control with morphine (severe pain), oxycodone po (moderate pain), Tylenol (mild pain) - Ice prn - Eventual PT/OT consults but will await ortho decision on OR (2) Closed fracture of right elbow: see plan of care for #1 (3) Fall from height of greater than 3 feet: - Maintenance IV fluids - Check CK - eval for rhabdo - Fall precautions due to limited ability to use arms - OOB with assistance (4) Mood disorder: Pt reports being off all prior psychiatric meds (5) Polysubstance abuse: Pt denies recent use of alcohol (completed rehab last fall) - monitor for s/s of alcohol withdrawal. Ongoing tobacco use - declines nicotine patch Reports occasional marijuana use but non recently Patient seen and evaluated with attending physician, Dr. Rios. Plan of care discussed and as outlined above. Flori Singh PA-C History of Present Illness Chief Complaint: fall Primary Care Provider: William Mullins MD This is a 24 y/o female with a history of substance abuse, alcoholic pancreatitis, and depression who presents s/p fall last evening with resultant multiple fractures. Per pt, she was climbing on an 8 foot shipping container last evening because "I like to climb things" and was trying to climb back down when she slipped and fell off. She landed on her left wrist and right elbow primarily although she did hit her head as well. She denies LOC and states that she "jumped right back up" after she landed. She attempted to manage her symptoms at home but after a restless night of sleep, she noted worsening pain and that her left hand was numb so she came in for evaluation. She applied ice at home but did not take any medications for pain. No prior fractures. No prior reactions to anesthesia. She is right hand dominant. She denies chest pain, shortness of breath, palpitations, N/V, syncope, dizziness, headache or neck pain. She does note mild back pain. Denies history of cardiac or pulmonary diseases. She is concerned about her ability to go back home as she has minimal social support. Her boyfriend currently resides in [place]. She has a roommate but they are "not close" and she does not feel like she can rely on them for help. Allergies Allergy/AdvReac Type Severity Reaction Status Date / Time amairani Allergy Mild GUMS SWELL Verified 08/30/19 09:33 mushroom Allergy Mild GUMS SWELL Verified 08/30/19 09:33 No Known Drug Allergies Allergy Unknown Unverified 09/16/19 08:20 Home Medications Home Medications Medication Instructions Recorded Confirmed Type multivitamin 1 tab PO QPM 09/24/18 09/16/19 History norgestimate-ethinyl estradiol 1 tab PO DAILY 02/01/19 09/16/19 History [Tri-Sprintec (28)] albuterol sulfate 2 puffs INH QID PRN #18 gm 03/10/19 09/16/19 Rx pantoprazole [Protonix] 40 mg PO DAILY 28 Days #28 tab 08/30/19 09/16/19 Rx Past Med/Surg History Medical History (Updated 09/16/19 @ 13:32 by Tamara Singh PA-C) Alcohol withdrawal (Acute) Mood disorder (Acute) Polysubstance abuse Recurrent pancreatitis (Acute) Surgical History No pertinent past surgical history (Chronic) Social History Preferred Language: Cuban Communication Ability: Impaired 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 Beliefs That Will Affect Care: None Current Living Situation: Other Current Living Situation Comment: roommate Feels Safe at Home: Yes Safety Concerns: Feels Safe At This Time Smoking Status: Current every day smoker Tobacco Type: cigarettes ; Cigarettes Per Day: 10 ; Second Hand Exposure: No ; Hx Alcohol Use: Yes Alcohol type: beer Hx Substance Use: No Review of Systems Review of Systems: All systems reviewed & are unremarkable except as noted in HPI & below Constitutional: no fever, no chills and no weakness Eyes: no diplopia and not seeing flashes Ear, Nose, Mouth, Throat: no sore throat and no dysphagia Respiratory: no cough, no dyspnea, no hemoptysis and no wheezing Cardiovascular: no chest pain, no palpitations, no syncope and no edema Gastrointestinal: no nausea, no vomiting, no diarrhea/loose stools and no blood in stools Genitourinary: no dysuria Musculoskeletal: as per Subjective / HPI and + back pain Pain in left wrist and right elbow Integumentary: no rash Neurologic: + numbness (in left hand this AM - improving); no generalized weakness, no dizziness and no headache(s) Physical Exam Constitutional: WD/WN, vitals as above no acute distress and no altered mental status Eyes: + anicteric sclerae; no conjunctival abnormality Pinpoint pupils but equal ENMT: external ear and nose normal, oropharynx normal Neck: trachea midline Respiratory: normal respiratory effort, lungs clear to auscultation Auscultation: no rales, no rhonchi and no wheezes Cardiovascular: Rate/Rhythm: regular rate and regular rhythm Heart Sounds: no gallop, no murmur and no cardiac rub Extremities: no calf tenderness and no pedal edema Gastrointestinal (Abdomen): Inspection/Auscultation: normal bowel sounds; abdomen not distended Percussion/Palpation: abdomen soft; abdomen nontender Musculoskeletal: Head/Neck/Chest: normocephalic, head atraumatic and neck supple Extremities: no cyanosis Bilateral UE in splints limited skin exam. Able to move fingers bilaterally. Significant pain with lifting/moving either UE. Sensation to light touch intact bilater fingers. LE without edema. Skin: no jaundice Neurologic: moves all extremities Speech / Cognition: normal speech Psychiatric: A+Ox3, euthymic affect Results & Data Results & Data ([facility]) Vital Signs (Past 12 Hours) Vital Signs Temp Pulse Pulse Resp BP BP Pulse Ox 09/16/19 11:30 16 99 09/16/19 09:36 115 H 28 H 128/76 99 09/16/19 07:58 37 C 114 H 20 122/79 99 Laboratory Results Laboratory Results - last 24 hr 09/16/19 09/16/19 09/16/19 08:45 08:45 08:45 WBC 8.62 RBC 3.76 L Hgb 11.6 L Hct 34.2 L MCV 91.0 MCH 30.9 MCHC 33.9 RDW Std Deviation 64.6 H RDW Coeff of Nayana 19.5 H Plt Count 100 L MPV 8.6 Immature Gran % (Auto) 0.3 Neut % (Auto) 57.6 Lymph % (Auto) 31.3 [place] % (Auto) 9.4 Eos % (Auto) 1.2 Baso % (Auto) 0.2 Immature Gran # (Auto) 0.03 H Neut # (Auto) 4.96 Lymph # (Auto) 2.70 [place] # (Auto) 0.81 H Eos # (Auto) 0.10 Baso # (Auto) 0.02 Absolute Nucleated RBC 0.02 H Nucleated RBC % (auto) 0.3 PT 10.6 INR 1.0 APTT 24.2 PTT Ratio 0.9 Sodium 140 Potassium 3.4 L Chloride 109 H Carbon Dioxide 17 L Anion Gap 14.0 H BUN 8 Creatinine 0.56 L Est Cr Clr Drug Dosing 137.0 Est GFR ( Amer) 149.1 Est GFR (Non-Af Amer) 128.7 BUN/Creatinine Ratio 13.9 Glucose 93 Calcium 8.2 L Total Bilirubin 0.4 AST 61 H ALT 75 Alkaline Phosphatase 68 Total Protein 7.1 Albumin 3.8 Globulin 3.3 Albumin/Globulin Ratio 1.2 HCG, Qual 09/16/19 08:45 WBC RBC Hgb Hct MCV MCH MCHC RDW Std Deviation RDW Coeff of Nayana Plt Count MPV Immature Gran % (Auto) Neut % (Auto) Lymph % (Auto) [place] % (Auto) Eos % (Auto) Baso % (Auto) Immature Gran # (Auto) Neut # (Auto) Lymph # (Auto) [place] # (Auto) Eos # (Auto) Baso # (Auto) Absolute Nucleated RBC Nucleated RBC % (auto) PT INR APTT PTT Ratio Sodium Potassium Chloride Carbon Dioxide Anion Gap BUN Creatinine Est Cr Clr Drug Dosing Est GFR ( Amer) Est GFR (Non-Af Amer) BUN/Creatinine Ratio Glucose Calcium Total Bilirubin AST ALT Alkaline Phosphatase Total Protein Albumin Globulin Albumin/Globulin Ratio HCG, Qual Negative Diagnostic Findings Cervical Spine CT 09/16/19 - IMPRESSION: No fractures within the cervical spine. Left elbow/wrist/hand x-ray 09/16/19 - IMPRESSION: 1. Distal left radius and ulnar styloid fractures. 2. Triquetral bone fracture. 3. No fractures identified within the left elbow or left hand. Right elbow/wrist/hand x-ray 09/16/19 - IMPRESSION: 1. Nondisplaced fracture at the olecranon of the right elbow. 2. Questionable dorsal subluxation of the distal ulna, however, this is likely projectional as there is no significant soft tissue swelling. Clinical correlation recommended to assess for pain at this location. 3. No fractures identified within the right hand or right wrist. CT Head 09/16/19 - Impression: No acute intracranial abnormality. Chest X-ray 09/16/19 - IMPRESSION: No acute process. Right Elbow CT 09/16/19 - IMPRESSION: Essentially nondisplaced olecranon fracture. Left Wrist CT 09/16/19 - IMPRESSION: Redemonstration of the left distal radius and ulnar styloid fractures as described above. Medications Administered Discontinued Medications Hydromorphone HCl (Dilaudid) 1 mg IV NOW STA Stop: 09/16/19 09:56 Last Admin: 09/16/19 10:01 Dose: 1 mg Documented by: [id number] Hydromorphone HCl (Dilaudid) 0.5 mg IV NOW STA Stop: 09/16/19 11:46 Last Admin: 09/16/19 12:04 Dose: 0.5 mg Documented by: [id number] Sodium Chloride (Nss 1000ml) 1,000 mls @ 999 mls/hr IV .Q1H1M CHUN Stop: 09/16/19 09:45 Last Infusion: 09/16/19 10:10 Dose: 0 mls/hr Documented by: [id number] Admin: 09/16/19 08:47 Dose: 999 mls/hr Documented by: [id number] Morphine Sulfate (Morphine Sulfate) 4 mg IV NOW STA Stop: 09/16/19 08:35 Last Admin: 09/16/19 08:46 Dose: 4 mg Documented by: [id number] Morphine Sulfate (Morphine Sulfate) 4 mg IV NOW STA Stop: 09/16/19 09:27 Last Admin: 09/16/19 09:30 Dose: 4 mg Documented by: [id number] Oxycodone HCl (Roxicodone Immediate Rel) 5 mg PO NOW STA Stop: 09/16/19 13:10 Last Admin: 09/16/19 13:20 Dose: 5 mg Documented by: [id number] Code Status & VTE Plan VTE Prophylaxis Plan VTE Prophylaxis will be ordered: Yes Supervising Physician Co-Signing Physician Notes I, Dr. Andrew Rios, have seen and examined the patient with physician housekeeping assistant and agree with the assessment and plan as above and would like to comment that Assessment and Plan/Physical Exam Closed nondisplaced fracture of left wrist AND Closed nondisplaced fracture of right elbow secondary to Fall from height of greater than 3 feet: Mood disorder Polysubstance abuse -This is a 24 year old female with polysubstance/alcohol abuse in the past with previous hospitalizations for abdominal pain secondary to gastritis/pancreatitis who fell from a reported height of 7 to 8 feet off the top of a shipping container. Patient reports she likes to "climb things" and fell after her hands slipped off. -On X ray imaging of left upper extremity. "No fracture or dislocation within the left elbow. No elbow effusion. Soft tissue swelling within the left wrist. Nondisplaced ulnar styloid fracture. There is a comminuted and mildly impacted distal radius fracture with intra-articular extension small ossific density dorsal to the carpal bones consistent with a triquetral bone fracture. The distal radius fractures are slightly displaced. No additional fractures identif ied within the left hand." -On X ray imaging of right upper extremity. "Nondisplaced fracture at the olecranon. There is associated elbow effusion. The radial head appears intact. No dislocation. Posterior soft tissue swelling within the right elbow. Questionable dorsal subluxation of the distal ulna, however, this is likely projectional as there is no significant soft tissue swelling. No fractures identified within the right wrist or right hand." PHYSICAL Exam General/Upper Extremities: when assessed by hospitalist team in the Emergency room patient already had been placed in splint. patient was not in acute distress as she had pain medications and was able to converse her history Heart: regular rate Lungs: normal respiratory rate Abdomen: exam deferred as her arms were in splints and over the belly Lower extremities: able to move -patient will need orthopedic evaluation. currently will continue pain control. Place on alcohol withdrawal protocol (patient denies recent substance abuse but based on her past medical history, this step is precautionary). Give IV fluids and ensure no problems with creatine kinase or with creatinine. Patient is no longer taking mood disorder medications as outpatient. Her mood appears stable at this time -agree with other assessment and plans as documented physician housekeeping assistant (1) Closed fracture of right elbow Encounter type: initial encounter Qualified Code(s): S42.401A - Unspecified fracture of lower end of right humerus, initial encounter for closed fracture (2) Closed fracture of left wrist Encounter type: initial encounter Qualified Code(s): S62.102A - Fracture of unspecified carpal bone, left wrist, initial encounter for closed fracture
[2019-09-16] MEDS ORDERED: ACETAMINOPHEN 325 MG TAB PO PRN ×2 (14:12→18:53)
[2019-09-16] MEDS: MoRPHine SULFATE 2 MG/ML CARP IV PRN ×2 (14:29→18:29)
[2019-09-16] MEDS ORDERED: LORazepam 1 MG TAB PO PRN (14:42)
[2019-09-16] MEDS: fentaNYL 12 MCG/HR TDSY TD SCH (16:21)
[2019-09-16 16:50] LABS: Magnesium 1.6 mg/dl (1.8-2.4)
[2019-09-16] MEDS: ONDANSETRON INJ 2 MG/ML 2 ML VIAL IV PRN (16:57)
[2019-09-16] MEDS ORDERED: MULTI-VITAMIN INFUSION 10 ML, THIAMINE HCL 100 MG, FOLIC ACID 1 MG in SODIUM CHLORIDE 0... IV ONE (17:00)
[2019-09-16] MEDS: POTASSIUM ACETATE 10 MEQ in 0.9 % SODIUM CHLORIDE 100 ML IV SCH ×2 (17:03→19:00)
[2019-09-16] MEDS: SODIUM CHLORIDE 0.9% 1000ML 1,000 ML IV SCH (17:59)
--- NOTE | 2019-09-16 18:45 | Consultation Report ---
DATE OF CONSULTATION: 09/16/2019 HISTORY OF PRESENT ILLNESS: This is a 24-year-old right hand dominant female seen at the request of Dr. Andrew Rios after she was apparently in her usual state of health with some friends last evening with history of substance abuse. She was climbing on a 40-foot container as "she likes to climb things." She slipped on the way down and fell approximately 7-8 feet backwards on to her right elbow, left wrist, lower back, spine and head. She denied any loss of consciousness. She felt pain, difficulty with motion of her left wrist and her right elbow; however, no lasting effects from the head trauma. She states she bounced right back, stood up but noticed the pain. She tried to manage her symptoms on her own with ice, rest and observation; however, had severe pain, restless night of sleep and then presented back to the hospital today for evaluation. She did admit that she was drinking last night. She has minimal social support. Her boyfriend lives in [place] and she lives with a roommate here in [facility]. 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 She has pain in her left wrist and her right elbow. They are currently in splints as applied by the ER. I did discuss the patient's care with the ER staff, gave them recommendations regarding her care and management as well as recommendation for CT scans of the left wrist and the right elbow. PAST MEDICAL HISTORY: Alcohol withdrawal, history of heroin abuse, polysubstance abuse, mood disorder, recurrent pancreatitis. PAST SURGICAL HISTORY: Denies. ALLERGIES: AMINATA, MUSHROOM WITH GUM SWELLING. MEDICATIONS: Multivitamin, Tri-Sprintec, albuterol sulfate, Protonix. She has been on psychiatric medications in the past; however, she is not currently on psychiatric meds. SOCIAL HISTORY: She lives with a roommate in [place]. She drinks alcohol daily, typically wine and when she is drinking regularly, will drink 3 glasses of wine per day or the equivalent of a 3 liter box of wine every 3 days or so. She smokes marijuana occasionally, she smokes approximately 10 cigarettes per day, history of heroin abuse - per the patient, she has been clean for 6 months. PHYSICAL EXAMINATION: The patient is lying supine in her hospital room bed. She is alert and oriented x3. Speech clear and fluent. She is somewhat anxious and tremulous. Heart rate is approximately 110 beats per minute as tested by carotid pulse. Unable to test radial pulses due to the splint on her left wrist and her right elbow. Fingertips are pink and warm. Cap refill is 2 seconds. Sensation is intact in bilateral fingertips. Limited range of motion in the upper extremities due to the splints as noted previously. No tenderness at the shoulders or upper back. She has no difficulty with bed mobility. Radiographs and CT scans report was reviewed by the radiologist. I did review the studies including CTs and radiographs with Dr. Mejia via telephone consult. The patient has displacement, impaction, dorsal and volar involvement of her left distal radius fracture with a small ulnar styloid and a small triquetral fracture. The impaction of the lunate fossa is concerning with the pilon type fracture involvement. Regarding the right olecranon fracture, there is over 3 mm of displacement with slight step off. This is concerning as the articular surface has been affected at the olecranon and its articulation with the trochlea. There is also a structural defect extending distally within the ulna. IMPRESSION: 1. Left distal radius, ulnar styloid and dorsal triquetral fracture with impaction and displacement and pilon variant of the distal radius involving the lunate fossa. 2. Right displaced olecranon fracture. 3. Fall from a height of approximately 7-8 feet. 4. Mitigating circumstances related to polysubstance abuse. 5. Possible impending delirium tremens. RECOMMENDATIONS: After consultation with Dr. Mejia and Dr. Rios, the hospitalist, it appears the patient's best course is to pass through her phase at risk with DTs with medications as directed by Dr. Rios. We will schedule ORIF of the left distal radius fracture with Dr. Mejia and ORIF of the right olecranon fracture with Dr. Mejia on Tuesday when the patient's withdrawal symptoms are better managed. In the meantime, continue the use of splints as in place and ice to the affected extremities. P.r.n. pain medication per medical service. Thank you for the opportunity to consult in the care of this patient. WHIT
[2019-09-16] MEDS ORDERED: HYDROmorphone INJ 0.5 MG/0.5 ML SYR IV PRN (18:52)
[2019-09-16] MEDS: OXYCODONE/ACETAMINOPHEN 5mg/325mg TAB PO SCH (19:15)
[2019-09-16] MEDS: GABAPENTIN 100 MG CAP PO SCH (20:01)
[2019-09-16] MEDS: OXYCODONE HCL IR 5 MG TAB (IMMEDIATE RELEASE) PO PRN (21:23)
[2019-09-16] MEDS: CHECK FENTANYL PATCH PLACEMENT SCH (23:37)
[2019-09-16] MEDS: ACETAMINOPHEN 325 MG TAB PO PRN (23:52)
[2019-09-17] MEDS: HYDROmorphone INJ 0.5 MG/0.5 ML SYR IV PRN ×7 (02:09→23:14)
[2019-09-17] MEDS: OXYCODONE HCL IR 5 MG TAB (IMMEDIATE RELEASE) PO PRN ×2 (03:22→20:23)
[2019-09-17] MEDS: ACETAMINOPHEN 325 MG TAB PO PRN ×3 (04:31→13:28)
[2019-09-17 06:14] LABS: Hemoglobin 10.4 g/dL (12.0-16.0); Mean Corpuscular Hemoglobin 31.5 pg (25-34); Mean Corpuscular Hgb Conc 33.5 g/dL (32-36); Mean Corpuscular Volume 93.9 fL (80-100); Nucleated RBC # (auto) 0.02 K/uL (0-0); Nucleated RBC % (auto) 0.5 %; Platelet Count 71 K/uL (130-400); RDW Coefficient of Variation 19.4 % (11.5-14.5); White Blood Count 3.46 K/uL (4.8-10.8)
[2019-09-17 06:34] LABS: Basophils # (auto) 0.01 K/uL (0-0.2); Basophils % (auto) 0.3 %; Eosinophils # (auto) 0.08 K/uL (0-0.5); Eosinophils % (auto) 2.3 %; Immature Granulocytes # (auto) 0.01 K/uL (0.00-0.02); Immature Granulocytes % (auto) 0.3 %; Lymphocytes # (auto) 1.18 K/uL (1.2-3.4); Lymphocytes % (auto) 34.1 %; Monocytes # (auto) 0.63 K/uL (0.11-0.59); Monocytes % (auto) 18.2 %; Neutrophils # (auto) 1.55 K/uL (1.4-6.5); Neutrophils % (auto) 44.8 %
[2019-09-17 06:42] LABS: Alanine Aminotransferase 54 U/L (12-78); Albumin Level 3.3 gm/dl (3.4-5.0); Aspartate Aminotransferase 30 U/L (15-37); BUN Creatinine Ratio 6.7 (10-20); Blood Urea Nitrogen 3 mg/dl (7-18); Calcium 7.8 mg/dl (8.5-10.1); Carbon Dioxide 21 mmol/L (21-32); Chloride 104 mmol/L (98-107); Creatinine Clr Calc Pharmacy 178.4 ml/min; Est GFR (African American) > 150.0; Est GFR (Non-African American) 140.4; Glucose 76 mg/dl (70-99); Magnesium 1.8 mg/dl (1.8-2.4); Potassium 3.3 mmol/L (3.5-5.1); Sodium 136 mmol/L (136-145)
[2019-09-17 06:45] LABS: Albumin Globulin Ratio 1.1 (0.9-2); Alkaline Phosphatase 72 U/L (45-117); Bilirubin,Total 0.7 mg/dl (0.2-1); Globulin 2.9 gm/dl (2.5-4.0); Phosphorus 2.3 mg/dl (2.5-4.9); Total Protein 6.2 gm/dl (6.4-8.2)
[2019-09-17] MEDS: OXYCODONE/ACETAMINOPHEN 5mg/325mg TAB PO SCH ×2 (06:54→19:23)
[2019-09-17] MEDS: SODIUM CHLORIDE 0.9% 1000ML 1,000 ML IV SCH ×2 (06:55→19:25)
[2019-09-17] MEDS ORDERED: POTASSIUM CHLORIDE 20 MEQ TABCR PO STA (07:04)
[2019-09-17] MEDS ORDERED: MAGNESIUM SULFATE / D5W 1 GM/100 ML BAG IV ONE (07:15)
[2019-09-17] MEDS: POTASSIUM CHLORIDE / WTR 10 MEQ/100 ML PLCT IV SCH ×2 (07:36→08:57)
[2019-09-17] MEDS ORDERED: LORazepam 0.25 MG/0.5 ML VIAL IV STA ×2 (07:47→15:27)
[2019-09-17] MEDS: ONDANSETRON INJ 2 MG/ML 2 ML VIAL IV PRN ×2 (07:55→13:26)
[2019-09-17] MEDS: CHECK FENTANYL PATCH PLACEMENT SCH ×3 (08:06→23:17)
--- NOTE | 2019-09-17 08:26 | Hospitalist Progress Note ---
Date of Service September 17, 2019 Assessment & Plan (1) Fall from height of greater than 3 feet: (2) Closed fracture of left wrist: ED provider spoke with ortho on-call who recommended CT in advance of potential surgical intervention - ordered by ED and results on chart - Consult orthopedics for recommendations - splints applied in ED - Pain control with morphine (severe pain), oxycodone po (moderate pain), Tylenol (mild pain) - Ice prn - Eventual PT/OT consults but will await ortho decision on OR (3) Closed fracture of right elbow: Closed nondisplaced fracture of left wrist AND Closed nondisplaced fracture of right elbow secondary to Fall from height of greater than 3 feet: -This is a 24 year old female with polysubstance/alcohol abuse in the past with previous hospitalizations for abdominal pain secondary to gastritis/pancreatitis who fell from a reported height of 7 to 8 feet off the top of a shipping container. Patient reports she likes to "climb things" and fell after her hands slipped off. -On X ray imaging of left upper extremity. "No fracture or dislocation within the left elbow. No elbow effusion. Soft tissue swelling within the left wrist. Nondisplaced ulnar styloid fracture. There is a comminuted and mildly impacted distal radius fracture with intra-articular extension small ossific density dorsal to the carpal bones consistent with a triquetral bone fracture. The distal radius fractures are slightly displaced. No additional fractures identified within the left hand." -On X ray imaging of right upper extremity. "Nondisplaced fracture at the olecranon. There is associated elbow effusion. The radial head appears intact. No dislocation. Posterior soft tissue swelling within the right elbow. Questionable dorsal subluxation of the distal ulna, however, this is likely projectional as there is no significant soft tissue swelling. No fractures identified within the right wrist or right hand." -plans for orthopedic surgery on 09/18/2019. continue pain medication regimen based on patient's ongoing pain symptoms of upper extremities, prn anti-emetics (4) Polysubstance abuse: Alcohol withdrawal -Reports occasional marijuana use but non recently -Ongoing tobacco use - declines nicotine patch -history of being in alcohol rehabilitation in the past -Dr. Wiseman from orthopedics reports that patient admitted to alcohol use and he expresses concern for alcohol withdrawal. Patient is on Ativan alcohol withdrawal protocol already. Hospitalist will add scheduled chlordiazepoxide (Librium) as 10 mg every 8 hours as scheduled for now as part of alcohol withdrawal prevention -Dr. Wiseman reports that patient likely to go to operating room on Tuesday09/18/2019 to allow time for medical optimization DVT prophylaxis: SCDs (5) Mood disorder: -Patient is no longer taking mood disorder medications as outpatient. Her mood appears stable at this time Admission and Anticipated Discharge Date Admission Date: September 16, 2019 Subjective Patient seen and examined at bedside. She reports problems with sleep because of arm pain. She is not in distress right now. no headache. no dizziness. no chest pain. no palpitations. no shortness of breath. breathing on room air. we discussed pain management plan and orthopedic plans at length Review of Systems Review of Systems: All systems reviewed & are unremarkable except as noted in Subjective Physical Exam Constitutional: cooperative Eyes: PERRL, conjunctivae normal, anicteric sclerae ENMT: external ear and nose normal, oropharynx normal Neck: normal visual inspection Respiratory: normal respiratory effort, lungs clear to auscultation Cardiovascular: Rate/Rhythm: regular rate Gastrointestinal (Abdomen): normal bowel sounds, soft, nontender, no hepatosplenomegaly Musculoskeletal: Head/Neck/Chest: normocephalic Neurologic: PERRL, EOMI, accommodation nl, no face palsy, no dysarthria Psychiatric: Orientation: alert and oriented x 3 Results & Data Results & Data ([facility]) Vital Signs (Past 12 Hours) Vital Signs Temp Pulse Pulse Resp BP Pulse Ox 09/17/19 07:49 36.7 C 86 18 128/85 99 09/17/19 03:05 36.6 C 107 H 18 125/81 97 09/17/19 00:00 102 H 09/16/19 23:40 36.9 C 98 H 18 127/91 95 09/16/19 22:14 36.7 C 116 H 20 121/80 99 (1) Closed fracture of right elbow Encounter type: initial encounter Qualified Code(s): S42.401A - Unspecified fracture of lower end of right humerus, initial encounter for closed fracture (2) Closed fracture of left wrist Encounter type: initial encounter Qualified Code(s): S62.102A - Fracture of unspecified carpal bone, left wrist, initial encounter for closed fracture
[2019-09-17] MEDS: MAGNESIUM OXIDE 400 MG TAB PO SCH (08:54)
[2019-09-17] MEDS: GABAPENTIN 100 MG CAP PO SCH ×2 (08:55→21:15)
--- NOTE | 2019-09-17 09:15 | Anesthesiology Consultation ---
Date of Service September 17, 2019 Assessment & Plan (1) Encounter for pre-operative examination: Chart Review Chart Review: Acceptable Risk for Surgery and Patient NOT seen in Pre Admission Testing Consults Requested none History Surgery Operation Date: 09/18/19 11:30 Proposed Procedures p Left Intraarticular Distal Radius Open Reduction Internal Fixation - Cornell Mejia M.D. s Right Olecranon Open Reduction Internal Fixation - Cornell Mejia M.D. Height/Weight Height: 5 ft 5 in Weight: 64.4 kg Allergies Allergy/AdvReac Type Severity Reaction Status Date / Time amairani Allergy Mild GUMS SWELL Verified 08/30/19 09:33 mushroom Allergy Mild GUMS SWELL Verified 08/30/19 09:33 No Known Drug Allergies Allergy Unknown Unverified 09/16/19 08:20 Medications Home Medications Medication Instructions Recorded Confirmed Last Taken multivitamin 1 tab PO QPM 09/24/18 09/16/19 08/29/19 norgestimate-ethinyl estradiol 1 tab PO DAILY 02/01/19 09/16/19 08/29/19 [Tri-Sprintec (28)] albuterol sulfate 2 puffs INH QID PRN #18 gm 03/10/19 09/16/19 08/29/19 pantoprazole [Protonix] 40 mg PO DAILY 28 Days #28 tab 08/30/19 09/16/19 Unknown Active Medications Generic Name Dose Route Start Last Admin Trade Name Freq PRN Reason Stop Dose Admin Acetaminophen 325 mg 09/16/19 19:03 09/17/19 07:56 Tylenol PO 10/16/19 18:52 325 mg Q4H PRN Administration Pain or Fever Chlordiazepoxide HCl 10 mg 09/16/19 17:30 09/17/19 08:54 Librium PO 10/16/19 17:29 10 mg Q8H CHUN Administration Fentanyl 12 mcg 09/16/19 16:00 09/16/19 16:21 Duragesic TD 09/30/19 15:59 12 mcg Q3D@1600 CHUN Administration Gabapentin 100 mg 09/16/19 19:15 09/17/19 08:55 Neurontin PO 10/16/19 19:14 100 mg Q12 CHUN Administration Hydromorphone HCl 0.5 mg 09/16/19 22:34 05/04/20 08:07 Dilaudid IV 09/30/19 18:51 0.5 mg Q3H PRN Administration Severe Pain Sodium Chloride 1,000 mls @ 80 mls/hr 09/16/19 18:00 09/17/19 06:55 Nss 1000ml IV 10/16/19 17:59 80 mls/hr .[id number] CHUN Administration Magnesium Oxide 400 mg 09/17/19 09:00 09/17/19 08:54 Mag-Ox PO 10/17/19 08:59 400 mg QAM CHUN Administration Miscellaneous 1 ea 09/16/19 16:00 09/17/19 08:06 Order Awaiting Action N/A 10/16/19 15:59 Not Given QS CHUN Miscellaneous 1 ea 09/16/19 15:59 09/16/19 16:18 Fentanyl Patch Remove & Waste N/A 10/16/19 15:58 Not Given Q3D CHUN Miscellaneous 1 ea 09/17/19 00:00 09/17/19 08:06 Fentanyl Patch Check Placement N/A 10/17/19 00:00 1 ea QS CHUN Administration Ondansetron HCl 4 mg 09/16/19 16:31 09/17/19 07:55 Zofran IV 10/16/19 16:30 4 mg Q6H PRN Administration Nausea And Vomiting Oxycodone HCl 5 mg 09/16/19 14:12 09/17/19 03:22 Roxicodone Immediate Rel PO 09/30/19 14:11 5 mg Q6H PRN Administration Moderate Pain Oxycodone/Acetaminophen 1 tab 09/16/19 19:00 09/17/19 06:54 Percocet 5mg/325mg PO 09/30/19 18:59 1 tab Q12H CHUN Administration Past Medical History Medical History (Updated 09/17/19 @ 09:20 by Sadiq Moreira MD) Alcohol withdrawal (Acute) Anemia Hypokalemia Mood disorder (Acute) Polysubstance abuse Recurrent pancreatitis (Acute) Thrombocytopenia Past Family History Family History Other No significant family history Past Surgical History Surgical History No pertinent past surgical history (Chronic) Social History Smoking Status: Current every day smoker tobacco type: cigarettes Smoking cigarettes per day: 10 Hx Alcohol Use: Yes Alcohol type: beer alcohol intake frequency: a few times a week Hx Substance Use: No substance use type: marijuana Last Used Substance: Hours (ago) Physical Exam Vital Signs Last Vital Signs Temp 36.7 C 09/17/19 07:49 Pulse 86 09/17/19 07:49 Resp 18 09/17/19 07:49 BP 128/85 09/17/19 07:49 Pulse Ox 99 09/17/19 07:49 Testing Laboratory Results 09/17/19 05:33 09/17/19 05:33 PT 10.6 Seconds (9.0-12.0) 09/16/19 08:45 INR 1.0 (0.9-1.1) 09/16/19 08:45 APTT 24.2 Seconds (21.0-31.0) 09/16/19 08:45 hcg negative 09/16/19 Electrocardiogram Date: 08/20/19 Findings: + ST @ (110) Chest X-Ray Date: 09/16/19 XR chest 1V portable HISTORY: Fall. Trauma. Bilateral arm pain. eval trauma COMPARISON: Chest 03/10/2019. FINDINGS: Stable calcified granuloma within the right upper lobe. Otherwise, the lungs are clear. No pleural effusions. No pneumothorax. The heart is normal in size. No fractures within the visualized osseous structures. IMPRESSION: No acute process. ACT 112: Negative or not required by law. Electronically signed by: Sadiq Pace M.D. 09/16/2019 9:51 AM Dictated: 09/16/19 0949 Transcribed: 09/16/19 0949 [phone] Scan Report Patient: DINORA REID Date: 09/16/19 MR#: [id number]: [address] Acct ID:[id number]: Date: [address] Zip: STATE [place] [address] Age: 24Location: ED Sex: F Room/Bed: Att Phy:Diagnosis: LT WRIST, RT ELBOW INJURIES Hilda Phy: William Mullins MDService Date: 09/16/19 Fam Phy:Interpreting Phy: Sadiq Pace MD Admit Phy: Ordering Phy: Maria Antonia Moraes CRNP cc: ~ CERVICAL SPINE CT CT DOSE: 1610.69 mGy.cm HISTORY: fall 7 ft, hit head, neck pain TECHNIQUE: Multiaxial CT images of the cervical spine were performed and reformatted in the sagittal and coronal plane without the use of contrast. A dose lowering technique was utilized adhering to the principles of ALARA. COMPARISON: None. FINDINGS: No fractures. No subluxation. Prevertebral soft tissues and the C1-C2 interval are intact. No pneumothorax. IMPRESSION: No fractures within the cervical spine. ACT 112: Negative or not required by law. Electronically signed by: Sadiq Pace M.D. 09/16/2019 10:04 AM Dictated: 09/16/[address] NONCONTRAST CT DOSE: HISTORY: fall 7 ft, hit head TECHNIQUE: Multiaxial CT images of the head were performed without the use of intravenous contrast. Automated exposure control was utilized for this study. A dose lowering technique was utilized adhering to the principles of ALARA. Comparison: Head CT 03/04/2019. Findings: Mild motion artifact. Mild mucosal thickening within the paranasal sinuses. The mastoid air cells are clear. The calvarium and skull base are intact. The ventricles and sulci are within normal limits. There is no mass, hematoma, midline shift, or acute infarct. Impression: No acute intracranial abnormality. ACT 112: Negative or not required by law. Electronically signed by: Sadiq Pace M.D. 09/16/2019 9:59 AM Dictated: 09/16/19 0953
--- NOTE | 2019-09-17 15:06 | Orthopedic Progress Note ---
Date of Service September 17, 2019 Assessment & Plan (1) Closed fracture of left distal radius: She has a severely comminuted, impacted, intraarticular left distal radius fracture with significant shortening and dorsal angulation of the distal articular surface. We extensively discussed nonoperative vs surgical fixation for this injury. She will be at very high risk of poor function, posttraumatic arthritis, and persistent pain with nonoperative treatment. I would recommend surgical fixation for this injury to restore proper length and alignment to the distal radius. She will still be at relatively high risk for posttraumatic arthritis even with surgical fixation due to the severity of the comminution of the articular surface, but I think her risk will be decreased with proper jain of length and alignment, and reduction of the articular surface fracture fragments. This may very likely require both dorsal and volar approaches to proximal properly align and fix the distal radius fracture fragments. A temporary spanning bridge plate would be another possibility. Risks, benefits, and alternatives of surgery were explained in detail. The surgical procedure, as well as postoperative recovery and rehabilitation, was also explained in detail. Risks include bleeding; infection; damage to surrounding structures such as nerves, blood vessels, and tendons that run in the area; persistent pain or stiffness; nonunion; malunion; hardware failure; post-traumatic arthritis; painful prominent hardware requiring removal; or need for further surgery. She understands all of this and wishes to proceed with surgery. Preoperative workup was completed today, and informed consent was obtained. Present on Admission?: Yes (2) Closed fracture of right olecranon process: She also has a mildly comminuted, mildly displaced, intra-articular right olecranon fracture. I think that even if this was an isolated injury, I would likely still recommend surgery due to the intra-articular displacement in her dominant elbow. I think that surgical fixation is even more clearly indicated with her concomitant contralateral distal radius fracture. Nonoperative treatment in a cast would likely lead to significant stiffness of the elbow, as well as further displacement of the fracture fragment with the pole of the distal triceps, leading to posttraumatic arthritis and poor function. I think that surgical fixation of both injuries will allow early range of motion of both joints. She understands all this and wishes to proceed. Risks, benefits, and alternatives of surgery were explained in detail. The surgical procedure, as well as postoperative recovery and rehabilitation, was also explained in detail. Risks include bleeding; infection; damage to surrounding structures such as nerves, blood vessels, and tendons that run in the area; persistent pain or stiffness; nonunion; malunion; hardware failure; post-traumatic arthritis; painful prominent hardware requiring removal; or need for further surgery. She understands all of this and wishes to proceed with surgery. Preoperative workup was completed today, and informed consent was obtained. All potential risks and benefits related to the patient's care were considered regarding the current COVID-19 pandemic. The patient's current condition requires urgent surgical intervention to prevent further morbidity and permanent disability. Delaying surgical care will likely lead to malunion, persistent pain, posttraumatic arthritis, and poor function. In my expert opinion, the benefits of urgent surgery outweigh the risks of surgical delay at this point. Present on Admission?: Yes Admission and Anticipated Discharge Date Admission Date: September 16, 2019 Subjective Patient seen and examined at the request of Dr. Wiseman. Complains of fairly severe pain in left wrist, moderate pain in right elbow. Physical Exam Physical Exam: Left wrist and right elbow splints in place. Motor and sensory function intact bilaterally in median, ulnar, and radial nerve distributions in the hand. Fingers warm and well perfused. Results & Data ([facility]) Vital Signs (Past 12 Hours) Vital Signs Temp Pulse Pulse Resp BP Pulse Ox 09/17/19 11:40 36.5 C 108 H 18 121/74 92 09/17/19 07:49 36.7 C 86 18 128/85 99 09/17/19 07:00 89 09/17/19 03:05 36.6 C 107 H 18 125/81 97 Diagnostic Findings Left wrist XR and CT reviewed. Severely comminuted, impacted, intraarticular distal radius fracture with significant shortening and dorsal angulation of the distal articular surface. Right elbow XR and CT reviewed. Mildly comminuted, mildly displaced intraarticular olecranon fracture with 3mm diastasis within the elbow joint. (1) Closed fracture of left distal radius Encounter type: initial encounter Fracture morphology: Colles' Qualified Code(s): S52.532A - Colles' fracture of left radius, initial encounter for closed fracture (2) Closed fracture of right olecranon process Encounter type: initial encounter Qualified Code(s): S52.021A - Displaced fracture of olecranon process without intraarticular extension of right ulna, initial encounter for closed fracture
[2019-09-17] MEDS ORDERED: HYDROmorphone INJ 0.5 MG/0.5 ML SYR IV STA (15:27)
[2019-09-17] MEDS: LORazepam 1 MG/2 ML VIAL IV PRN (21:14)
[2019-09-18] MEDS: HYDROmorphone INJ 0.5 MG/0.5 ML SYR IV PRN ×4 (03:15→17:53)
[2019-09-18] MEDS: OXYCODONE HCL IR 5 MG TAB (IMMEDIATE RELEASE) PO PRN (03:21)
[2019-09-18] MEDS: CEFAZOLIN 2000MG 2,000 MG/15 ML SYR IV SCH ×2 (06:21→11:18)
[2019-09-18] MEDS: ONDANSETRON INJ 2 MG/ML 2 ML VIAL IV PRN (06:28)
[2019-09-18] MEDS: OXYCODONE/ACETAMINOPHEN 5mg/325mg TAB PO SCH ×2 (07:06→18:34)
[2019-09-18] MEDS: LORazepam 1 MG/2 ML VIAL IV PRN ×2 (07:39→18:45)
[2019-09-18] MEDS: SODIUM CHLORIDE 0.9% 1000ML 1,000 ML IV SCH (07:43)
[2019-09-18] MEDS: CHECK FENTANYL PATCH PLACEMENT SCH ×2 (07:44→17:56)
--- NOTE | 2019-09-18 07:47 | Hospitalist Progress Note ---
Date of Service September 18, 2019 Assessment & Plan (1) Fall from height of greater than 3 feet: - Maintenance IV fluids - Check CK - eval for rhabdo - Fall precautions due to limited ability to use arms - OOB with assistance (2) Closed fracture of left wrist: - splints applied in ED - Pain control with diluadid (severe pain), prn oxycodone po (moderate pain) with scheduled percoet q12h, prn Tylenol (mild pain), scheduled gabapentin for neuropathic pain - Ice prn -PT/OT consults (3) Closed fracture of right elbow: Closed nondisplaced fracture of left wrist AND Closed nondisplaced fracture of right elbow secondary to Fall from height of greater than 3 feet: -This is a 24 year old female with polysubstance/alcohol abuse in the past with previous hospitalizations for abdominal pain secondary to gastritis/pancreatitis who fell from a reported height of 7 to 8 feet off the top of a shipping container. Patient reports she likes to "climb things" and fell after her hands slipped off. -On X ray imaging of left upper extremity. "No fracture or dislocation within the left elbow. No elbow effusion. Soft tissue swelling within the left wrist. Nondisplaced ulnar styloid fracture. There is a comminuted and mildly impacted distal radius fracture with intra-articular extension small ossific density dorsal to the carpal bones consistent with a triquetral bone fracture. The distal radius fractures are slightly displaced. No additional fractures identified within the left hand." -On X ray imaging of right upper extremity. "Nondisplaced fracture at the olecranon. There is associated elbow effusion. The radial head appears intact. No dislocation. Posterior soft tissue swelling within the right elbow. Questionable dorsal subluxation of the distal ulna, however, this is likely projectional as there is no significant soft tissue swelling. No fractures identified within the right wrist or right hand." -continue pain medication regimen based on patient's ongoing pain symptoms of upper extremities, prn anti-emetics -plans for orthopedic surgery to be performed on Tuesday09/18/2019 (4) Polysubstance abuse: Alcohol withdrawal -Reports occasional marijuana use but non recently -Ongoing tobacco use - declines nicotine patch -history of being in alcohol rehabilitation in the past -Dr. Wiseman from orthopedics reports that patient admitted to alcohol use and he expresses concern for potential of alcohol withdrawal in his 09/16/2019 assessment. Patient on Ativan alcohol withdrawal protocol already. Hospitalist added scheduled chlordiazepoxide (Librium) as 10 mg every 8 hours as scheduled for now as part of alcohol withdrawal prevention DVT prophylaxis: SCDs (5) Mood disorder: -Patient is no longer taking mood disorder medications as outpatient. Her mood appears stable at this time Admission and Anticipated Discharge Date Admission Date: September 17, 2019 Subjective Patient seen and examined this AM. She reports less anxiety today. She is awaiting to go to operating room for orthopedic repair of the upper extremity fractures. Patient breathing on room air. no headache. no dizziness. no chest pain. no palpitations. no abdomen pain. besides pain of the arms which she is tolerating, patient denies other symptoms Review of Systems Review of Systems: All systems reviewed & are unremarkable except as noted in Subjective Physical Exam Constitutional: cooperative Eyes: PERRL, conjunctivae normal, anicteric sclerae ENMT: external ear and nose normal, oropharynx normal Neck: normal visual inspection Respiratory: normal respiratory effort, lungs clear to auscultation Cardiovascular: Rate/Rhythm: regular rate Gastrointestinal (Abdomen): normal bowel sounds, soft, nontender, no hepatosplenomegaly Musculoskeletal: Head/Neck/Chest: normocephalic both arms in splints Neurologic: PERRL, EOMI, accommodation nl, no face palsy, no dysarthria Psychiatric: Orientation: alert and oriented x 3 Results & Data Results & Data ([facility]) Vital Signs (Past 12 Hours) Vital Signs Temp Pulse Pulse Pulse Resp BP Pulse Ox 09/18/19 07:36 36.2 C L 102 H 20 125/80 99 09/18/19 07:11 100 H 09/18/19 03:20 36.8 C 108 H 19 131/82 96 09/17/19 23:06 36.8 C 104 H 17 121/77 98 09/17/19 22:20 103 H (1) Closed fracture of left wrist Encounter type: initial encounter Qualified Code(s): S62.102A - Fracture of unspecified carpal bone, left wrist, initial encounter for closed fracture (2) Closed fracture of right elbow Encounter type: initial encounter Qualified Code(s): S42.401A - Unspecified fracture of lower end of right humerus, initial encounter for closed fracture
[2019-09-18] MEDS: GABAPENTIN 100 MG CAP PO SCH ×2 (09:25→20:57)
[2019-09-18] MEDS: MAGNESIUM OXIDE 400 MG TAB PO SCH (09:25)
[2019-09-18] MEDS ORDERED: fentaNYL citrate 100 MCG/2 ML VIAL ONE ×4 (09:55→15:01)
[2019-09-18] MEDS ORDERED: MIDAZOLAM HCL 1 MG/ML 2ML VIAL ONE ×2 (09:55)
[2019-09-18 10:40] LABS: Hematocrit (blood only) 32.8 % (37-47); Hemoglobin 10.9 g/dL (12.0-16.0); Mean Corpuscular Hemoglobin 31.2 pg (25-34); RDW Coefficient of Variation 18.8 % (11.5-14.5); RDW Standard Deviation 63.4 fL (36.4-46.3); Red Blood Count 3.49 M/uL (4.2-5.4); White Blood Count 3.44 K/uL (4.8-10.8)
[2019-09-18 10:49] LABS: Mean Corpuscular Hgb Conc 33.2 g/dL (32-36); Mean Platelet Volume 9.7 fL (7.4-10.4); Platelet Count 76 K/uL (130-400)
[2019-09-18] MEDS ORDERED: LIDOCAINE HCL 2% 2 ML VIAL/AMP(20MG/ML) INFIL ONE (10:51)
[2019-09-18] MEDS ORDERED: PROPOFOL IV EMULSION 10 MG/ML 20 ML VIAL IV ONE (10:51)
[2019-09-18] MEDS ORDERED: DEXAMETHASONE SOD INJ 4 MG/ML VIAL ONE (10:51)
[2019-09-18] MEDS ORDERED: ONDANSETRON INJ 2 MG/ML 2 ML VIAL ONE (10:51)
[2019-09-18] MEDS ORDERED: ROCURONIUM BROMIDE 10 MG/ML 5 ML VIAL ONE (10:51)
--- NOTE | 2019-09-18 10:53 | History & Physical Bridge Note ---
Date of Service September 18, 2019 History & Physical Bridge Note I have examined the patient, reviewed the History & Physical and in the interval since the performance of the History & Physical I have noted the following changes of clinical significance: no changes noted
[2019-09-18 10:57] LABS: BUN Creatinine Ratio 2.8 (10-20); Blood Urea Nitrogen 1 mg/dl (7-18); Calcium 8.2 mg/dl (8.5-10.1); Carbon Dioxide 22 mmol/L (21-32); Chloride 106 mmol/L (98-107); Creatinine Clr Calc Pharmacy 170.5 ml/min; Est GFR (African American) > 150.0; Est GFR (Non-African American) 138.3; Glucose 81 mg/dl (70-99); Potassium 3.2 mmol/L (3.5-5.1); Sodium 136 mmol/L (136-145)
[2019-09-18] MEDS ORDERED: HYDROmorphone INJ 2 MG/ML SYR/VIAL IV PRN (11:12)
[2019-09-18] MEDS ORDERED: PROMETHAZINE HCL 12.5 MG in SODIUM CHLORIDE 0.9% 50 ML IV PRN (11:12)
[2019-09-18] MEDS ORDERED: ATROPINE SULFATE 0.1 MG/ML 10ML SYR IV PRN (11:12)
[2019-09-18] MEDS ORDERED: ONDANSETRON INJ 2 MG/ML 2 ML VIAL IV PRN (11:12)
[2019-09-18] MEDS ORDERED: METOCLOPRAMIDE HCL INJ 5 MG/ML 2 ML VIAL IV PRN (11:12)
[2019-09-18] MEDS ORDERED: ePHEDrine sulfate 50 MG/ML AMP IV PRN (11:12)
[2019-09-18] MEDS ORDERED: ROPIVACAINE 0.5% 5 MG/ML 30 ML VIAL ONE (11:15)
[2019-09-18] MEDS ORDERED: BUPIVACAINE 0.5 % 5 MG/1 ML MPF 30ML VIAL ONE (11:48)
[2019-09-18] MEDS ORDERED: LIDOCAINE HCL 1% 20 ML VIAL ONE (11:48)
[2019-09-18] MEDS ORDERED: SUCCINYLCHOLINE CHLORIDE 20 MG/ML 10 ML VIAL ONE (12:15)
[2019-09-18] MEDS ORDERED: HYDROmorphone INJ 2 MG/ML SYR/VIAL ONE (14:06)
--- NOTE | 2019-09-18 14:16 | Fluoroscopy Report ---
FL wrist LT 3V RTN CLINICAL HISTORY: LEFT WRIST ORIF COMPARISON STUDY: Left wrist radiographs and CT of the left wrist September 16, 2019. FLUOROSCOPY TIME: 1 minute and 49 seconds. FLUOROSCOPIC IMAGES: 5 FINDINGS: These images demonstrate plate and screw fixation of the distal left radial fracture. Hardw are is intact. There are no unexpected radiopaque foreign bodies. Fracture alignment is improved and appears near anatomic. Fracture of the ulnar styloid is again noted. IMPRESSION: Fluoroscopy provided for internal fixation of the distal left radial fracture. ACT 112: Negative or not required by law. Electronically signed by: Nathanael Jurado M.D. 09/18/2019 2:15 PM
[2019-09-18] MEDS ORDERED: GLYCOPYRROLATE 0.2 MG/ML VIAL ONE (15:15)
[2019-09-18] MEDS ORDERED: CEFAZOLIN 250 MG/ML 1 GM VIAL ONE (15:15)
[2019-09-18] MEDS ORDERED: NEOSTIGMINE METHYLSULFATE 5 MG/5 ML SYR ONE (15:15)
--- NOTE | 2019-09-18 15:38 | Fluoroscopy Report ---
FL elbow RT 2V CLINICAL HISTORY: 24 years-old Female presenting with ORIF RT OLECRANON. TECHNIQUE: 2 fluoroscopic image(s) recorded as part of an intraoperative procedure. COMPARISON: CT and plain radiographs from 09/16/2019. FINDINGS/IMPRESSION: Curved plate and screw fixation of the olecranon and proximal metaphysis of the ulna across the axill nabor oriented olecranon fracture. Elbow joint congruent. Please see surgical report for further details. Dose area product (mGy.cm^2): 13.8207. Fluoroscopy time: 1 minute 29 seconds. Number or time of high level fluoroscopy (HLF), digital spot, or digital subtraction images: 0. ACT 112: Negative or not required by law. Electronically signed by: Oli Benjamin M.D. 09/18/2019 3:36 PM
--- NOTE | 2019-09-18 16:00 | Post Operative Brief Note ---
Immediate Post Op Note v1 Date of Surgery September 18, 2019 Pre & Post Diagnosis Operation Date: 09/18/19 11:30 Pre-Op Diagnosis: 1. Left 4+ part, severely comminuted intraarticular distal radius fracture 2. Right displaced olecranon fracture Post-Op Diagnosis: 1. Left 4+ part, severely comminuted intraarticular distal radius fracture 2. Right displaced olecranon fracture I identified the patient and participated in the time-out.: Yes Procedure Operation Date: 09/18/19 11:30 Actual Procedures 1. Open Reduction and Internal Fixation of Left Intraarticular Distal Radius Fracture - Cornell Mejia M.D. 2. Open Reduction and Internal Fixation of Right Olecranon Fracture - Cornell Mejia M.D. Surgeon Cornell Mejia Stitch Separator Art Palmer PA-C Estimated Blood Loss 25 Findings Consistent with Post-Op Diagnosis Drains Roman Catheter (16 polish 10ml balloon latex free; clean/dry/intact)
--- NOTE | 2019-09-18 16:25 | Operative Report ---
Post Operative Report Pre & Post Diagnosis Operation Date: 09/18/19 11:30 Pre-Op Diagnosis: 1. Left 4+ part, severely comminuted intraarticular distal radius fracture 2. Right displaced olecranon fracture Post-Op Diagnosis: 1. Left 4+ part, severely comminuted intraarticular distal radius fracture 2. Right displaced olecranon fracture I identified the patient and participated in the time-out.: Yes Procedure Operation Date: 09/18/19 11:30 Actual Procedures 1. Left Wrist Open Reduction and Internal Fixation of 4+ Part Severely Comminuted Intraarticular Distal Radius Fracture (68829) 2. Right Elbow Open Reduction and Internal Fixation of Displaced Olecranon Fracture (83236) - Cornell Mejia M.D. Surgeon Cornell Mejia [employer] Art Palmer PA-C Estimated Blood Loss 25 Findings Consistent with Post-Op Diagnosis Specimens None Drains None Anesthesia Type General Regional Complications none Disposition Disposition: Recovery Room Indications Ms. Davidson is a 24-year old female who sustained significant injuries to the left wrist and right elbow when she fell about 10 feet off of a shipping container while intoxicated. History, clinical exam, and imaging were consistent with the above diagnosis. Risks, benefits, and alternatives of surgery were explained in detail. The patient understood all this and wished to proceed. Description of Procedure Patient was identified in the preoperative holding area. Operative extremity was marked. Regional blockade was given on the more severely injured left upper extremity by the Anesthesia Staff. Patient was then brought back to the operating room and general anesthesia was induced without complication. Appropriate weight-based dose of Ancef was infused intravenously for antibiotic prophylaxis. We first began with the left wrist. Tourniquet was placed on the left upper arm. The arm was then prepped and draped in a standard sterile fashion using Chlorhexidine prep. The arm was then exsanguinated with an Esmarch, and the tourniquet was inflated. Longitudinal incision was made directly over the flexor carpi radialis. The superficial and deep portions of the FCR tendon sheath were then opened longitudinally, and Parona's space was entered. I then made an L-shaped incision along the distal and radial edge of the pronator quadratus and elevated this from radial to ulnar to expose the distal radius fracture site. This was a severely comminuted and impacted fracture of the distal radius. There were numerous separate fracture fragments. There is a fairly long longitudinal cortical spike on the volarulnar aspect of the radial shaft. This was separate from the impacted articular surface fragments in the lunate and scaphoid fossa. There is significant comminution of the dorsal rim of the distal radius as well. My focus at this point was to disimpact and elevate the impacted articular surface fragments. I placed a Luna elevator within the fracture line at the distal margin of the volar distal radius and elevated up the scaphoid and lunate fossa while pulling longitudinal traction on the hand. I was able to disimpact and reduce the fracture fragments. I then placed bone graft within the void; I used a mixture of cancellus bone chips and demineralized bone matrix to fill the void. Reduction maneuver was then performed. K-wire was placed through the longitudinal cortical spike on the radial shaft to hold this reduced during plate application. After adequate reduction had been achieved, I then selected an appropriately sized plate from the [employer] 2.4mm variable-angle dual column distal radius volar locking plate set. The plate was then positioned appropriately on the distal radius and temporarily held in place with a K-wire. I verified proper fracture reduction and plate placement under fluoroscopic imaging. Once I was satisfied with this, I proceeded with screw placement. Locking screws were placed distally, and non-locking and locking screws were placed into the radial shaft where appropriate. I obtained final fluoroscopic imaging to ensure proper screw length and trajectory, as well as fracture reduction. I also performed a shuck test of the distal radial ulnar joint to ensure that it was stable. I then closed the remnants of the pronator quadratus over top of the plate where possible. Tourniquet was then let down, and hemostasis was achieved with bipolar electrocautery. Wound was thoroughly irrigated with sterile saline, and was then closed in layers. Sterile dressings were then applied with Xeroform, sterile gauze, and sterile Webril, followed by a volar plaster splint and Portillo wrap. The drapes were then removed from the left upper extremity. We then proceeded with the right olecranon fracture. The patient was then turned into the lateral decubitus position with the operative arm up. Tourniquet was placed on the right upper arm. Arm was then prepped and draped in a standard sterile fashion using Chlorhexidine prep. The arm was then exsanguinated with an Esmarch, and the tourniquet was inflated. I first made a curvilinear incision over the elbow, taking the incision laterally around the most posterior aspect of the elbow. I incised sharply down to the triceps tendon at the proximal end of the incision, and to the deep fascia distally. I elevated full-thickness flaps medially and laterally. Along the medial aspect of the wound, I carefully bluntly dissected and identified the ulnar nerve. The ulnar nerve was palpated in the zone of injury, but was not e xposed. The nerve was protected throughout the remainder of the case. I then inspected the fracture site. The fracture was palpated, but the fascia over top of the fracture was still intact. The fracture site was located under fluoroscopic imaging as well. The fracture is quite distracted at the articular surface by at least 3 mm, but was minimally distracted at the posterior cortical surface where the fascia was intact. The fascia was divided with a knife, and the fracture site opened. Hematoma debris within the fracture site was debrided with a curette and ronguer. I then performed a reduction of the fracture and held this in place with a fracture reduction clamp. A 0.062" K-wire was then placed across the fracture site to temporarily hold the fracture in proper position while applying the plate. An appropriately sized plate was selected from the [employer] 2.4/3.5 mm variable angle locking olecranon plate set. The plate was then properly positioned on the ulna and pinned in place with a K-wire proximally. I verified proper hardware position and fracture reduction both visually and under fluoroscopy. I then placed a 3.5 mm nonlocking compression screw distally in the ulnar shaft to provide compression across the fracture site while holding the proximal end of the plate reduced to the proximal fragment with the K-wire, as well as reduce the plate down to bone. I then placed variable-angle locking screws in the most proximal olecranon tip. These screws were directed across the fracture site and down the ulnar shaft, being careful to keep them away from the elbow joint. Fluoroscopy was used intermittently to ensure continued reduction of the fracture and proper hardware placement. Additional locking screws were placed into the proximal fracture fragment, and a combination of locking and nonlocking screws were used distally as necessary. Final fluoroscopic images were obtained to verify fracture reduction, hardware placement, and screw length. I took the elbow through full range of motion, and no crepitus was felt in the elbow joint, and no hardware impingement was appreciated. Wound was then copiously irrigated with sterile saline. Layered closure was then performed with 3-0 Vicryl and 3-0 Prolene. The right elbow operative site was then anesthetized with a 50/50 mixture of 1% lidocaine and 0.5% Marcaine without epinephrine. Tourniquet was let down, and sterile dressings were applied with Xeroform, sterile gauze, and sterile Webril, followed by a posterior plaster splint and Portillo wrap. The drapes were removed, the patient was awakened from anesthesia, and taken to the Post Anesthesia Care Unit in stable condition. There were no immediate complications from the procedure. I was present and scrubbed for the entire procedure. Due to the complex nature of the procedure, the entire surgery was performed with the operational assistance of Art Palmer PA-C. The senior court office assistant, under direct supervision, was involved in the performance of all aspects of the surgical procedure including patient positioning, tissue retraction, hemostasis, wound closure, and dressing application. I attest to the content of the Intraoperative Record and any orders documented therein. Any exceptions are noted below.
[2019-09-18] MEDS: fentaNYL citrate 100 MCG/2 ML VIAL IV PRN ×2 (16:39→16:44)
--- NOTE | 2019-09-18 17:30 | Anesthesiology Progress Note ---
Date of Service September 18, 2019 Anesthesia Post Procedure Vital Signs Vital Signs: Temp Pulse Pulse Pulse Pulse Resp BP 09/18/19 17:04 37.2 C 101 H 14 144/76 H 09/18/19 16:50 37.2 C 102 H 15 144/70 H 09/18/19 16:40 102 H 12 147/72 H 09/18/19 16:30 105 H 15 169/74 H 09/18/19 16:24 36.2 C L 119 H 15 150/59 H 09/18/19 09:55 36.7 C 108 H 20 132/87 09/18/19 07:36 36.2 C L 102 H 20 125/80 09/18/19 07:11 100 H 09/18/19 03:20 36.8 C 108 H 19 131/82 09/17/19 23:06 36.8 C 104 H 17 121/77 09/17/19 22:20 103 H 09/17/19 19:03 36.7 C 106 H 18 119/87 Pulse Ox 09/18/19 17:04 95 09/18/19 16:50 93 09/18/19 16:40 96 09/18/19 16:30 98 09/18/19 16:24 99 09/18/19 09:55 95 09/18/19 07:36 99 09/18/19 07:11 09/18/19 03:20 96 09/17/19 23:06 98 09/17/19 22:20 09/17/19 19:03 99 Pain Intensity Left Wrist: Pain Intensity: 10 Bilateral Arm: Pain Intensity: 8 Right Elbow: Pain Intensity: 8 Transfer of Care Handoff Completed per policy Notes Mental Status: alert / awake / arousable and participated in evaluation Patient Amnestic to Procedure: Yes Nausea / Vomiting: adequately controlled Pain: adequately controlled Airway Patency, RR, SpO2: stable & adequate BP & HR: stable & adequate Hydration State: stable & adequate Anesthetic Complications: no major complications apparent and Pt Satisfied with anesthetic care
[2019-09-18] MEDS ORDERED: ALBUTEROL HFA 8 GM INHALER INH PRN (17:50)
[2019-09-18] MEDS ORDERED: HYDROmorphone INJ 1 MG/ML SYRINGE IV STA ×2 (19:19→20:18)
--- NOTE | 2019-09-18 19:43 | Anesthesiology Progress Note ---
Date of Service September 18, 2019 Assessment & Plan (1) Postoperative pain: I reassured the patient that the arm which was blocked was the arm Dr. Mejia felt would have the most pain after surgery. The left arm block appears to be functioning well. The patient is experiencing significant pain on the right though. I reviewed the intraoperative notes and spoke with Dr. Mejia. The patient received 150mg of Ropivicaine in the left nerve block. She also received 100 mg of lidocaine and 50 mg of bupivicaine from Dr. Mejia in the right arm at the end of surgery. It has been more than 8 hours since her axillary block was placed. I offered the patient a right sided supraclavicular block, but did explain that I would be limited by the total amount of local I could give due to what she had already received. Patient initially agreed and signed a consent. In addition, I planned to contact the patient's grandmother (patient self identifies her grandmother as her only kin blood relative) to gain additional phone consent due to patient having received anesthesia recently. Prior to calling the grandmother, the patient started to have second thoughts and became uncertain if she wanted to proceed with an additional block. Therefore, I spoke with the patient's hospitalist and gained permission to work on adjusting the patient's IV pain medicines in an effort to gain better pain control overnight. Plan to titrate IV dilaudid to effect and than start a dilaudid NEGATIVE CUTTER overnight. Orders placed for patient to be on continuous pulse oximetry overnight due to need for IV narcotics. Of note, patient also has a fentanyl patch in place to provide baseline analgesia and therefore, a continuous rate will not be offered on the NEGATIVE CUTTER. After titrating dilaudid, the patient continued to report a pain of 10 out of 10. Of note though, patient was no longer shaking, she was smiling and talking with staff, she was moving both arms and she was able to type at her computer without being limited by pain. Will transition to NEGATIVE CUTTER for overnight at this time. Present on Admission?: Yes Subjective Called by floor nursing team due to patient's concerns about severe right arm pain and questions about her peripheral nerve block. Patient reports that her left arm pain is about a 6 and her right arm pain is a 10. She also reports that she is feeling very anxious. She wants to know why her right arm hurts. Review of Systems Review of Systems: Alert and oriented x 3, reporting severe right arm pain, mild left arm pain, positive for anxiety, tearful and distraught Physical Exam Vital Signs: Last Vital Signs Temp 36.8 C 09/18/19 19:25 Pulse 138 H 09/18/19 19:25 Resp 18 09/18/19 19:25 BP 180/49 H 09/18/19 19:25 Pulse Ox 97 09/18/19 19:25 Results & Data Medications Administered Acetaminophen (Tylenol) 325 mg PO Q4H PRN PRN Reason: Pain or Fever Stop: 10/16/19 18:52 Last Admin: 09/17/19 13:28 Dose: 325 mg Documented by: [id number] Admin: 09/17/19 07:56 Dose: 325 mg Documented by: [id number] Admin: 09/17/19 04:31 Dose: 325 mg Documented by: [id number] Admin: 09/16/19 23:52 Dose: 325 mg Documented by: [id number] Chlordiazepoxide HCl (Librium) 10 mg PO Q8H [facility] Stop: 10/16/19 17:29 Last Admin: 09/18/19 17:57 Dose: Not Given Documented by: [id number] Admin: 09/18/19 09:25 Dose: 10 mg Documented by: [id number] Admin: 09/18/19 01:35 Dose: 10 mg Documented by: [id number] Admin: 09/17/19 17:30 Dose: 10 mg Documented by: [id number] Admin: 09/17/19 08:54 Dose: 10 mg Documented by: [id number] Admin: 09/17/19 01:14 Dose: 10 mg Documented by: [id number] Admin: 09/16/19 17:48 Dose: 10 mg Documented by: [id number] Fentanyl (Duragesic) 12 mcg TD Q3D@1600 [facility] Stop: 09/30/19 15:59 Last Admin: 09/16/19 16:21 Dose: 12 mcg Documented by: [id number] Gabapentin (Neurontin) 100 mg PO Q12 [facility] Stop: 10/16/19 19:14 Last Admin: 09/18/19 09:25 Dose: 100 mg Documented by: [id number] Admin: 09/17/19 21:15 Dose: 100 mg Documented by: [id number] Admin: 09/17/19 08:55 Dose: 100 mg Documented by: [id number] Admin: 09/16/19 20:01 Dose: 100 mg Documented by: [id number] Hydromorphone HCl (Dilaudid) 0.5 mg IV Q3H PRN PRN Reason: Severe Pain Stop: 09/30/19 18:51 Last Admin: 09/18/19 17:53 Dose: 0.5 mg Documented by: [id number] Admin: 09/18/19 09:26 Dose: 0.5 mg Documented by: [id number] Admin: 09/18/19 06:19 Dose: 0.5 mg Documented by: [id number] Admin: 09/18/19 03:15 Dose: 0.5 mg Documented by: [id number] Admin: 09/17/19 23:14 Dose: 0.5 mg Documented by: [id number] Admin: 09/17/19 20:08 Dose: 0.5 mg Documented by: [id number] Admin: 09/17/19 13:58 Dose: 0.5 mg Documented by: [id number] Admin: 09/17/19 11:02 Dose: 0.5 mg Documented by: [id number] Admin: 09/17/19 08:07 Dose: 0.5 mg Documented by: [id number] Admin: 09/17/19 05:10 Dose: 0.5 mg Documented by: [id number] Admin: 09/17/19 02:09 Dose: 0.5 mg Documented by: [id number] Sodium Chloride (Nss 1000ml) 1,000 mls @ 80 mls/hr IV .[id number] [facility] Stop: 10/16/19 17:59 Last Infusion: 09/18/19 18:35 Dose: 80 mls/hr Documented by: [id number] Infusion: 09/18/19 09:50 Dose: 0 mls/hr Documented by: [id number] Admin: 09/18/19 07:43 Dose: 80 mls/hr Documented by: [id number] Infusion: 09/18/19 07:43 Dose: 80 mls/hr Documented by: [id number] Admin: 09/17/19 19:25 Dose: 80 mls/hr Documented by: [id number] Infusion: 09/17/19 19:25 Dose: 80 mls/hr Documented by: [id number] Admin: 09/17/19 06:55 Dose: 80 mls/hr Documented by: [id number] Infusion: 09/17/19 06:29 Dose: 80 mls/hr Documented by: [id number] Admin: 09/16/19 17:59 Dose: 80 mls/hr Documented by: [id number] Lorazepam (Ativan) 1 mg in 2 mls @ 2 mls/min IV Q2H PRN PRN Reason: Anxiety/Agitation Stop: 10/17/19 20:44 Last Admin: 09/18/19 18:45 Dose: 2 mls/min Documented by: [id number] Admin: 09/18/19 07:39 Dose: 2 mls/min Documented by: [id number] Admin: 09/17/19 21:14 Dose: 2 mls/min Documented by: [id number] Magnesium Oxide (Mag-Ox) 400 mg PO QAM [facility] Stop: 10/17/19 08:59 Last Admin: 09/18/19 09:25 Dose: 400 mg Documented by: [id number] Admin: 09/17/19 08:54 Dose: 400 mg Documented by: [id number] Miscellaneous (Order Awaiting Action) 1 ea N/A QS [facility] Stop: 10/16/19 15:59 Last Admin: 09/18/19 17:56 Dose: Not Given Documented by: [id number] Admin: 09/18/19 07:44 Dose: Not Given Documented by: [id number] Admin: 09/17/19 23:17 Dose: Not Given Documented by: [id number] Admin: 09/17/19 16:04 Dose: Not Given Documented by: [id number] Admin: 09/17/19 08:06 Dose: Not Given Documented by: [id number] Admin: 09/16/19 23:37 Dose: Not Given Documented by: [id number] Admin: 09/16/19 16:19 Dose: Not Given Documented by: [id number] Miscellaneous (Fentanyl Patch Remove & Waste) 1 ea N/A Q3D [facility] Stop: 10/16/19 15:58 Last Admin: 09/16/19 16:18 Dose: Not Given Documented by: [id number] Miscellaneous (Fentanyl Patch Check Placement) 1 ea N/A QS [facility] Stop: 10/17/19 00:00 Last Admin: 09/18/19 17:56 Dose: 1 ea Documented by: [id number] Admin: 09/18/19 07:44 Dose: 1 ea Documented by: [id number] Admin: 09/17/19 23:17 Dose: 1 ea Documented by: [id number] Admin: 09/17/19 16:03 Dose: 1 ea Documented by: [id number] Admin: 09/17/19 08:06 Dose: 1 ea Documented by: [id number] Admin: 09/16/19 23:37 Dose: 1 ea Documented by: [id number] Ondansetron HCl (Zofran) 4 mg IV Q6H PRN PRN Reason: Nausea And Vomiting Stop: 10/16/19 16:30 Last Admin: 09/18/19 06:28 Dose: 4 mg Documented by: [id number] Admin: 09/17/19 13:26 Dose: 4 mg Documented by: [id number] Admin: 09/17/19 07:55 Dose: 4 mg Documented by: [id number] Admin: 09/16/19 16:57 Dose: 4 mg Documented by: [id number] Oxycodone HCl (Roxicodone Immediate Rel) 5 mg PO Q6H PRN PRN Reason: Moderate Pain Stop: 09/30/19 14:11 Last Admin: 09/18/19 03:21 Dose: 5 mg Documented by: [id number] Admin: 09/17/19 20:23 Dose: 5 mg Documented by: [id number] Admin: 09/17/19 03:22 Dose: 5 mg Documented by: [id number] Admin: 09/16/19 21:23 Dose: 5 mg Documented by: [id number] Oxycodone/Acetaminophen (Percocet 5mg/325mg) 1 tab PO Q12H [facility] Stop: 09/30/19 18:59 Last Admin: 09/18/19 18:34 Dose: 1 tab Documented by: [id number] Admin: 09/18/19 07:06 Dose: 1 tab Documented by: [id number] Admin: 09/17/19 19:23 Dose: 1 tab Documented by: [id number] Admin: 09/17/19 06:54 Dose: 1 tab Documented by: [id number] Admin: 09/16/19 19:15 Dose: 1 tab Documented by: [id number]
[2019-09-18] MEDS ORDERED: CEFAZOLIN 2000MG 2,000 MG/15 ML SYR IV ONE (20:00)
[2019-09-18] MEDS: MULTIVITAMIN TAB PO SCH (20:57)
[2019-09-18] MEDS ORDERED: NALOXONE HCL 0.4 MG/1 ML VIAL/CARP IV PRN (21:02)
[2019-09-18] MEDS: HYDROmorphone PCA 30 MG/30 ML IV PRN (21:35)
[2019-09-18 21:41] LABS: Amphetamines+Metham, Urine Neg (Neg); Barbiturates, Urine Neg (Neg); Benzodiazepine, Urine Pos (Neg); Cocaine, Urine Neg (Neg); MDMA (Ecstacy), Urine Neg (Neg); Methadone, Urine Neg (Neg); Opiate, Urine Pos (Neg); Phencyclidine, Urine Neg (Neg)
[2019-09-18] MEDS: ACETAMINOPHEN 325 MG TAB PO PRN (22:54)
[2019-09-18] MEDS ORDERED: HYDROmorphone INJ 0.5 MG/0.5 ML SYR IV STA (23:09)
[2019-09-19] MEDS: CHECK FENTANYL PATCH PLACEMENT SCH ×3 (00:12→15:25)
[2019-09-19] MEDS: OXYCODONE HCL IR 5 MG TAB (IMMEDIATE RELEASE) PO PRN (04:18)
[2019-09-19] MEDS: SODIUM CHLORIDE 0.9% 1000ML 1,000 ML IV SCH ×4 (04:38→17:56)
[2019-09-19] MEDS: ONDANSETRON INJ 2 MG/ML 2 ML VIAL IV PRN (04:41)
[2019-09-19] MEDS: LORazepam 1 MG/2 ML VIAL IV PRN ×4 (05:45→18:44)
[2019-09-19] MEDS: OXYCODONE/ACETAMINOPHEN 5mg/325mg TAB PO SCH (08:01)
[2019-09-19] MEDS: GABAPENTIN 100 MG CAP PO SCH (08:01)
[2019-09-19] MEDS: MAGNESIUM OXIDE 400 MG TAB PO SCH (08:01)
[2019-09-19] MEDS: PANTOprazole 40 MG TAB PO SCH (08:02)
--- NOTE | 2019-09-19 12:37 | Orthopedic Progress Note ---
Date of Service September 19, 2019 Assessment & Plan (1) Closed fracture of right olecranon process: POD 1 s/p ORIF L fx and R olecranon fx she is kavitha po no light headness May be d/c'd from ortho standpoint when pain controlled and stable medically Present on Admission?: Yes (2) Closed fracture of left distal radius: Present on Admission?: Yes Admission and Anticipated Discharge Date Admission Date: September 17, 2019 Subjective C/O pain l wrist and r elbow. better than it was pre-op Physical Exam Musculoskeletal: BUE: splints intact. distally NVI, CR<2 Results & Data ([facility]) Vital Signs (Past 12 Hours) Vital Signs Temp Pulse Pulse Pulse Resp BP BP 09/19/19 11:29 36.7 C 118 H 20 127/70 09/19/19 08:00 09/19/19 07:49 36.7 C 120 H 20 102/67 09/19/19 07:26 116 H 09/19/19 04:05 36.9 C 128 H 11 L 160/76 H 09/19/19 01:49 37.1 C 115 H 9 L 169/67 H 09/19/19 00:48 36.8 C 114 H 11 L 165/74 H Pulse Ox Pulse Ox 09/19/19 11:29 100 09/19/19 08:00 99 09/19/19 07:49 99 09/19/19 07:26 09/19/19 04:05 97 09/19/19 01:49 99 09/19/19 00:48 95 (1) Closed fracture of right olecranon process Encounter type: initial encounter Qualified Code(s): S52.021A - Displaced fracture of olecranon process without intraarticular extension of right ulna, initial encounter for closed fracture (2) Closed fracture of left distal radius Encounter type: initial encounter Fracture morphology: Colles' Qualified Code(s): S52.532A - Colles' fracture of left radius, initial encounter for closed fracture
[2019-09-19] MEDS: fentaNYL 12 MCG/HR TDSY TD SCH (15:25)
[2019-09-19] MEDS ORDERED: BACLOFEN 10 MG TAB PO PRN (17:24)
[2019-09-19] MEDS: DULOXETINE HCL 30 MG CAP PO SCH (18:37)
[2019-09-19] MEDS: GABAPENTIN 300 MG CAP PO SCH (18:37)
--- NOTE | 2019-09-19 18:57 | Pain Management Consultation ---
Date of Consultation September 19, 2019 Assessment & Plan (1) Postoperative pain: 1. Recommend continuation of fentanyl 12 mcg patch every 72 hours for basal pain and utilization of Percocet 5/3 25 mg 1 p.o. every 4 as needed for breakthrough pain. Scheduled Percocet, PRN IV Dilaudid, and immediate release oxycodone orders were discontinued. 2. Recommend increasing gabapentin to 300 mg p.o. every 8, initiation of Cymbalta 30 mg p.o. every morning, baclofen 10 mg p.o. twice daily as needed spa sm or pain. I did attempt to discuss usage of these medications with the patient however at the end of the visit she stated that her "dinner was getting cold" and she "felt anxious" and "needed anxiety medication right away." I concluded the interview quickly and told her to go ahead and eat her dinner and she would see new medications (as listed above )to help her pain in the near future. I did not discuss medication names or doses due to patient emotional state. 3. We did discuss her TABLEAU ANALYST usage. She understands that she will not be able to leave with a TABLEAU ANALYST and that a conversion to oral medications prior to discharge is necessary. She became tearful and anxious at the thought of discontinuation of TABLEAU ANALYST. I did not change her current TABLEAU ANALYST dosing at this time as we allow for initiation of adjuvant medications. I do recommend consideration of TABLEAU ANALYST wean tomorrow. 4. Will initiate bowel regimen on an as-needed basis. 5. Thank you for this consultation , we will evaluate her tomorrow morning for further recommendations. (2) Closed fracture of right olecranon process: Encounter type: initial encounter Qualified Code(s): S52.021A - Displaced fracture of olecranon process without intraarticular extension of right ulna, initial encounter for closed fracture (3) Closed fracture of left distal radius: Encounter type: initial encounter Fracture morphology: Colles' Qualified Code(s): S52.532A - Colles' fracture of left radius, initial encounter for closed fracture (4) Polysubstance abuse: (5) Alcohol abuse: (6) Fall from height of greater than 3 feet: (7) Marijuana use: (8) Mood disorder: (9) Alcohol withdrawal: History of Present Illness Attending Physician: Antoine Mai MD History of Present Illness 24-year-old female who fell sustaining a closed fracture of her right olecranon process and closed fracture of the left distal radius status post surgical intervention on 09/18/2019. She reports that pain ranges between 4 and 9 out of 10 sharp stabbing shooting pressure type sensation right greater than left. She notes pain shooting over her right posterior forearm to the level of her wrist. She notes full sensation, warmth, and movement of fingers bilaterally. She states that her pain goal is 3-4 out of 10. She states that she has a history of marijuana utilization but uses it on a very rare basis. Her current pain medication regimen consists of fentanyl 12 mcg every 72 hour patch Percocet 5 mg scheduled every 12 hours gabapentin 100 mg p.o. every 12 OxyIR 5 mg x 1 dose, Dilaudid 0.5 mg IV x6 doses, Dilaudid TABLEAU ANALYST utilizing 9 mg over the last 6 hours. She states that the only medication that has provided her any measure of relief has been the IV TABLEAU ANALYST and possibly the fentanyl patch but she is not certain. She finds mild efficacy with ice. She has not had any issues with sedation, constipation or urinary retention secondary to opiates. She denies any other constitutional complaints at this time. A review of PDMP shows no prescribed opiates. Pain Assessment Full Body Front + Back: 1. 2. Allergies Allergy/AdvReac Type Severity Reaction Status Date / Time amairani Allergy Mild GUMS SWELL Verified 08/30/19 09:33 mushroom Allergy Mild GUMS SWELL Verified 08/30/19 09:33 No Known Drug Allergies Allergy Unknown Unverified 09/16/19 08:20 Home Medications Home Medications Medication Instructions Recorded Confirmed Type multivitamin 1 tab PO QPM 09/24/18 09/16/19 History norgestimate-ethinyl estradiol 1 tab PO DAILY 02/01/19 09/16/19 History [Tri-Sprintec (28)] albuterol sulfate 2 puffs INH QID PRN #18 gm 03/10/19 09/16/19 Rx pantoprazole [Protonix] 40 mg PO DAILY 28 Days #28 tab 08/30/19 09/16/19 Rx Patient History Medical History Alcohol withdrawal (Acute) Anemia Hypokalemia Mood disorder (Acute) Polysubstance abuse Recurrent pancreatitis (Acute) Thrombocytopenia Surgical History (Updated 09/19/19 @ 19:08 by Jeannie Khan DO) History of orthopedic surgery Family History Other No significant family history Social History Preferred Language: Lithuanian Communication Ability: Effective 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 After speaking with her about her TABLEAU ANALYST and her use of her TABLEAU ANALYST she started crying, hyperventilating, stating abruptly " my dinner is getting cold, you are making me anxious and I am hungry." Recent memory appears grossly intact Eyes: Pupils are equally round and reactive to light with normal size pupils, eyelids appear normal Ear, nose, mouth, and throat: Moist nasal and oral membranes, lips and tongues appear normal, no external ear abnormalities are noted Neck: The trachea is midline without deviation and no thyromegaly is noted Respiratory: Normal respiratory effort without distress, no audible wheezes or rhonchi CV: Normal S1 and S2, carotid upstroke is within normal limits Musculoskeletal: Head is normocephalic and atraumatic, gait not observed. She has bilateral orthopedic splints over her forearms to hands. An ice pack is in place over her right forearm. She is able to move her fingers without difficulty and notes full sensation. Capillary refill is intact. Dressings are clean dry and intact. She moves her upper extremities without deficit. She does not appear to be in any distress moving her arms bilaterally. Cervical: Lordotic curve: Normal Range of motion is normal with extension, flexion, side-bending, rotation Skin: No rashes, lesions, ulcers, or induration noted Neuro: No nystagmus noted, the tongue is midline, the patient is able to rotate their head bilaterally : Deferred Results Diagnostic Review Radiology Findings: 09/18/19 FL wrist LT 3V RTN CLINICAL HISTORY: LEFT WRIST ORIF COMPARISON STUDY: Left wrist radiographs and CT of the left wrist September 16, 2019. FLUOROSCOPY TIME: 1 minute and 49 seconds. FLUOROSCOPIC IMAGES: 5 FINDINGS: These images demonstrate plate and screw fixation of the distal left radial fracture. Hardware is intact. There are no unexpected radiopaque foreign bodies. Fracture alignment is improved and appears near anatomic. Fracture of the ulnar styloid is again noted. IMPRESSION: Fluoroscopy provided for internal fixation of the distal left radial fracture. 09/18/19 FL elbow RT 2V CLINICAL HISTORY: 24 years-old Female presenting with ORIF RT OLECRANON. TECHNIQUE: 2 fluoroscopic image(s) recorded as part of an intraoperative procedure. COMPARISON: CT and plain radiographs from 09/16/2019. FINDINGS/IMPRESSION: Curved plate and screw fixation of the olecranon and proximal metaphysis of the ulna across the axillary oriented olecranon fracture. Elbow joint congruent.
[2019-09-19] MEDS ORDERED: POLYETHYLENE (MIRALAX) 17 GM PACK PO PRN (19:06)
[2019-09-19] MEDS ORDERED: DOCUSATE SODIUM 100 MG CAP PO PRN (19:06)
--- NOTE | 2019-09-19 19:39 | Hospitalist Progress Note ---
Date of Service September 19, 2019 Assessment & Plan (1) Closed fracture of right olecranon process: (2) Closed fracture of left distal radius: Present on admission after failing from the top of a shipping container about 7 to 8 feet Left elbow xray showed distal left radius and ulnar styloid fractures. Triquetral bone fracture. Right elbow xray showed nondisplaced fracture at the olecranon of the right elbow. Questionable dorsal subluxation of the distal ulna. Right elbow CT showed essentially nondisplaced olecranon fracture. Left Wrist CT showed redemonstration of the left distal radius and ulnar styloid fractures as described above. S/P day# 1 open Reduction and Internal Fixation of Left Intraarticular Distal Radius Fracture performed S/P day #1 Open Reduction and Internal Fixation of Right Olecranon Fracture performed by Dr. Cornell Mejia Continue pain control with SOLAR DESIGN ENGINEER pump Ok from ortho standpoint to discharge when pain improves Not interested in rehab Pain management consulted Continue PT/OT eval (3) Polysubstance abuse: Alcohol withdrawal On Alcohol withdrawal protocol with gabapentin and ativan Alcohol level less than 3 Librium titrates to BID Continue monitor closely for sign of alcohol with withdrawal and DT (4) Mood disorder: -Patient is no longer taking mood disorder medications as outpatient. Her mood appears stable at this time Polysubstance abuse UDS positive for marijuana Counseling on Marijuana cessation Hypokalemia K 3.2 on 09/18/19 Check BMP Nicotine abuse Refused nicotine path Counseling on to tobacco cessation DVT px on SCDs Admission and Anticipated Discharge Date Admission Date: September 17, 2019 Subjective Pt was seen and examined Lying in bed with no distress Pt said that she continues to have pain She said that the dilaudid helps to control the pain Denies any chest pain, palpitation, dizziness and SOB Physical Exam Physical Exam: General- No acute distress Head- atraumatic Eyes- PERRL, EOMI, ENT- oropharynx clear Neck- supple, no JVD Lungs- clear to auscultation Heart- regular rhythm; no murmur Abdomen- normal bowel sounds, soft, nontender Extremities- no calf tenderness, splints in BUE Neuro- alert, oriented x 3; PERRL, EOMI; no facial palsy; no dysarthria Skin- warm & dry Results & Data Results & Data ([facility]) Vital Signs (Past 12 Hours) Vital Signs Temp Pulse Pulse Pulse Resp BP BP 09/19/19 16:32 123 H 09/19/19 15:36 36.3 C L 82 22 135/72 09/19/19 11:29 36.7 C 118 H 20 127/70 09/19/19 08:00 09/19/19 07:49 36.7 C 120 H 20 102/67 Pulse Ox Pulse Ox 09/19/19 16:32 09/19/19 15:36 94 09/19/19 11:29 100 09/19/19 08:00 99 09/19/19 07:49 99 (1) Closed fracture of left distal radius Encounter type: initial encounter Fracture morphology: Colles' Qualified Code(s): S52.532A - Colles' fracture of left radius, initial encounter for closed fracture (2) Closed fracture of right olecranon process Encounter type: initial encounter Qualified Code(s): S52.021A - Displaced fracture of olecranon process without intraarticular extension of right ulna, initial encounter for closed fracture
[2019-09-19] MEDS: OXYCODONE/ACETAMINOPHEN 5mg/325mg TAB PO PRN (20:56)
[2019-09-19] MEDS: MULTIVITAMIN TAB PO SCH (20:57)
[2019-09-19] MEDS: HYDROmorphone PCA 30 MG/30 ML IV PRN (21:04)
[2019-09-20] MEDS: CHECK FENTANYL PATCH PLACEMENT SCH ×4 (00:01→23:33)
[2019-09-20] MEDS: OXYCODONE/ACETAMINOPHEN 5mg/325mg TAB PO PRN ×6 (00:08→23:29)
[2019-09-20] MEDS: LORazepam 1 MG/2 ML VIAL IV PRN ×3 (00:36→04:35)
[2019-09-20] MEDS: SODIUM CHLORIDE 0.9% 1000ML 1,000 ML IV SCH ×2 (00:58→23:24)
[2019-09-20] MEDS: GABAPENTIN 300 MG CAP PO SCH ×3 (02:38→17:03)
[2019-09-20] MEDS ORDERED: OLANZapine 10 MG/2.1 ML SDV IM STA (03:58)
[2019-09-20] MEDS ORDERED: cloNIDine HCL 0.1 MG TAB PO ONE ×2 (04:14→20:01)
[2019-09-20 04:25] LABS: Blood Urea Nitrogen < 1 mg/dl (7-18); Calcium 8.4 mg/dl (8.5-10.1); Carbon Dioxide 26 mmol/L (21-32); Chloride 106 mmol/L (98-107); Est GFR (African American) 149.1; Est GFR (Non-African American) 128.7; Glucose 116 mg/dl (70-99); Potassium 3.4 mmol/L (3.5-5.1); Sodium 137 mmol/L (136-145)
[2019-09-20] MEDS ORDERED: MAGNESIUM SULFATE / D5W 1 GM/100 ML BAG IV ONE ×2 (04:30→05:00)
[2019-09-20] MEDS ORDERED: ATIVAN IV ALCOHOL WITHDRAWL IV PRN (04:35)
[2019-09-20] MEDS ORDERED: LORazepam 1 MG/2 ML VIAL IV PRN (04:35)
[2019-09-20] MEDS ORDERED: LORazepam 2 MG/4 ML VIAL IV PRN (04:35)
[2019-09-20] MEDS ORDERED: LORazepam 3 MG/6 ML VIAL IV PRN (04:35)
[2019-09-20 04:39] LABS: Alanine Aminotransferase 44 U/L (12-78); Albumin Globulin Ratio 0.8 (0.9-2); Albumin Level 2.8 gm/dl (3.4-5.0); Alkaline Phosphatase 100 U/L (45-117); Aspartate Aminotransferase 96 U/L (15-37); Bilirubin,Total 0.4 mg/dl (0.2-1); Globulin 3.4 gm/dl (2.5-4.0); Magnesium 1.7 mg/dl (1.8-2.4); Total Protein 6.2 gm/dl (6.4-8.2)
[2019-09-20 04:48] LABS: Nucleated RBC # (auto) 0.03 K/uL (0-0); Nucleated RBC % (auto) 0.6 %
[2019-09-20 04:49] LABS: Hematocrit (blood only) 29.8 % (37-47); Hemoglobin 9.7 g/dL (12.0-16.0); Mean Corpuscular Hemoglobin 31.1 pg (25-34); Mean Corpuscular Hgb Conc 32.6 g/dL (32-36); Mean Corpuscular Volume 95.5 fL (80-100); Mean Platelet Volume 8.9 fL (7.4-10.4); Platelet Count 117 K/uL (130-400); RDW Coefficient of Variation 19.2 % (11.5-14.5); Red Blood Count 3.12 M/uL (4.2-5.4); White Blood Count 4.89 K/uL (4.8-10.8)
[2019-09-20 04:53] LABS: Partial Thromboplastin Ratio 0.9; Partial Thromboplastin Time 24.9 Seconds (21.0-31.0)
[2019-09-20] MEDS ORDERED: POTASSIUM CHLORIDE 20 MEQ TABCR PO STA (04:53)
[2019-09-20 05:12] LABS: Basophils # (auto) 0.01 K/uL (0-0.2); Basophils % (auto) 0.2 %; Eosinophils # (auto) 0.04 K/uL (0-0.5); Eosinophils % (auto) 0.8 %; Immature Granulocytes # (auto) 0.02 K/uL (0.00-0.02); Immature Granulocytes % (auto) 0.4 %; Lymphocytes # (auto) 1.65 K/uL (1.2-3.4); Lymphocytes % (auto) 33.7 %; Monocytes # (auto) 1.17 K/uL (0.11-0.59); Monocytes % (auto) 23.9 %
[2019-09-20] MEDS ORDERED: MULTI-VITAMIN INFUSION 10 ML, THIAMINE HCL 100 MG, FOLIC ACID 1 MG, POTASSIUM CHLORIDE ... IV ONE (05:15)
--- NOTE | 2019-09-20 07:01 | XRay Report ---
XR chest 1V portable CLINICAL HISTORY: 24 years-old Female presenting with low o2. TECHNIQUE: Portable upright AP view of the chest was obtained. COMPARISON: 09/16/2019 and CTA chest from 03/05/2019. FINDINGS: Cardiomediastinal silhouette normal. No focal opacity. No large effusion or pneumothorax. Osseous str uctures normal. Upper abdomen normal. IMPRESSION: 1. No acute cardiopulmonary disease. ACT 112: Negative or not required by law. Electronically signed by: Oli Benjamin M.D. 09/20/2019 6:59 AM
--- NOTE | 2019-09-20 09:11 | Pain Management Progress Note ---
Date of Service September 20, 2019 Assessment & Plan (1) Closed fracture of right olecranon process: Encounter type: initial encounter Qualified Code(s): S52.021A - Displaced fracture of olecranon process without intraarticular extension of right ulna, initial encounter for closed fracture (2) Closed fracture of left distal radius: Continue Gabapentin 300mg TID, Cymbalta 30mg daily, Percocet 5/325mg x 4 hours PRN We have discussed the importance of weaning off of the Dilaudid ORNAMENTAL IRON ERECTOR so that she could be discharged to home. The Dilaudid ORNAMENTAL IRON ERECTOR interval was changed from every 15 minutes to every 30 minutes. Patient is agreeable to this plan. Tomorrow consider weaning the Dilaudid ORNAMENTAL IRON ERECTOR to every hour and then discontinuing the ORNAMENTAL IRON ERECTOR the day after. She does not note any efficacy from the Fentanyl Patch, will continue for now given that the Dilaudid ORNAMENTAL IRON ERECTOR is being weaned. Will sign off on the patient. Please call with any questions or concerns. Encounter type: initial encounter Fracture morphology: Leonardo' Qualified Code(s): S52.532A - Colles' fracture of left radius, initial encounter for closed fracture Subjective This is a 24 year old white female that did fall on 09/16/19 and sustained a left severely comminuted intraarticular distal radius fracture as well as a right displaced olecranon fracture that did require surgical repair on 09/18/2019. She does also have a significant history of anxiety, depression, alcohol abuse, slick sonam abuse, and pancreatitis. She has not noticed any relief from the Fentanyl patch at 12mcg/hr. Gabapentin was increased to 300mg TID. Percocet 5/325mg is every 4 hours PRN. Cymbalta 30mg was initiated last night. She does notice an improvement in pain this morning and is pleased with her current pain relief. She denies any side effects to the medications - constipation, drowsiness, ect. Pain Assessment Pain Assessment Full Body Front + Back: 1. 2. [facility] Combined Pain Scale: 5-Moderate - Cannot perform normal tasks without increase in pain Physical Exam Physical Exam: GENERAL: This is a 24 year old white female that does not appear in any acute distress. HEAD/FACE: Normocephalic and atraumatic. EYES: No drainage or conjunctival injection. RESPIRATORY: Patient with unlabored breathing. No signs of respiratory distress. SKIN: [place], warm and dry. No rash noted. MS/EXTREMITY: There are splints on both forearms. NEURO: Alert and appears oriented. Speech is fluent. Cranial Nerves are grossly intact. PSYCH: Alert, pleasant, affect is calm
--- NOTE | 2019-09-20 09:53 | Orthopedic Progress Note ---
Date of Service September 20, 2019 Assessment & Plan (1) Closed fracture of right olecranon process: POD 2 s/p ORIF L DR wilson and R jameel fx Continues to progress. Appreciate pain management input. May be d/c'd from ortho standpoint when pain controlled and stable medically. Follow-up with Dr. Mejia in 10 to 14 days. (2) Closed fracture of left distal radius: As above Admission and Anticipated Discharge Date Admission Date: September 17, 2019 Supervising Physician Co-Signing Physician Notes Patient was seen and examined. I agree with NICOLE Palmer's note as above. Patient appears quite somnolent, although arousable and answers questions appropriately. The patient's impressive amount of narcotics currently prescribed are noted, although she continues to complain of significant pain in bilateral upper extremities, right elbow slightly greater than her left wrist. She is now postop day 2 from ORIF of her right olecranon and left distal radius fractures. Splints are in place and intact on both upper extremities. Motor and sensory function is intact bilaterally in the median, radial, and ulnar nerve distributions. Fingers are warm well perfused, with good mobility. She is still undergoing medical treatment for her withdrawal. She is ready for discharge from an orthopedic perspective. Discharge per the medicine team. Her pain control after discharge will likely be quite challenging, and will likely require pain management assistance. Orthopedic specific instructions are listed in the discharge instruction section. Will sign off at this time. Please call with questions. Follow-up with Dr. Mejia at [facility] [place] in 10 to 14 days after surgery. Please have patient call [phone] after discharge to schedule her follow-up appointment. Subjective Patient currently awake and alert. Dr. Mai is present examining patient. Patient answering all questions appropriately. States that she is having pain in the right elbow more so than the left wrist. Some pain with movement with the upper extremities. No other complaints at this time. Physical Exam Physical Exam: Bilateral upper extremity splints are clean, dry, and intact. She has good range of motion of all her fingers of the right / left hand. Sensation is intact bilaterally. Capillary refill is less than 2 seconds bilaterally Results & Data ([facility]) Vital Signs (Past 12 Hours) Vital Signs Temp Pulse Pulse Resp BP Pulse Ox 09/20/19 07:43 150/71 H 09/20/19 05:06 36.5 C 116 H 16 142/80 H 94 09/20/19 00:30 123 H 09/19/19 23:37 36.9 C 118 H 22 149/73 H 98 (1) Closed fracture of left distal radius Encounter type: initial encounter Fracture morphology: Colles' Qualified Code(s): S52.532A - Colles' fracture of left radius, initial encounter for closed fracture (2) Closed fracture of right olecranon process Encounter type: initial encounter Qualified Code(s): S52.021A - Displaced fracture of olecranon process without intraarticular extension of right ulna, initial encounter for closed fracture
[2019-09-20] MEDS: PANTOprazole 40 MG TAB PO SCH (09:56)
[2019-09-20] MEDS: MAGNESIUM OXIDE 400 MG TAB PO SCH (09:56)
[2019-09-20] MEDS: DULOXETINE HCL 30 MG CAP PO SCH (10:37)
[2019-09-20] MEDS: ACETAMINOPHEN 325 MG TAB PO PRN (12:43)
--- NOTE | 2019-09-20 20:14 | Hospitalist Progress Note ---
Date of Service September 20, 2019 Assessment & Plan (1) Closed fracture of right olecranon process: (2) Closed fracture of left distal radius: Present on admission after failing from the top of a shipping container about 7 to 8 feet Left elbow xray showed distal left radius and ulnar styloid fractures. Triquetral bone fracture. Right elbow xray showed nondisplaced fracture at the olecranon of the right elbow. Questionable dorsal subluxation of the distal ulna. Right elbow CT showed essentially nondisplaced olecranon fracture. Left Wrist CT showed redemonstration of the left distal radius and ulnar styloid fractures as described above. S/P day# 2 open Reduction and Internal Fixation of Left Intraarticular Distal Radius Fracture performed S/P day #2 Open Reduction and Internal Fixation of Right Olecranon Fracture performed by Dr. Cornell Mejia Continue pain control with ATTENDING PSYCHIATRIST pump Ok from ortho standpoint to discharge when pain improves Not interested in rehab Pain management consulted Plan to wean off the ATTENDING PSYCHIATRIST pump- Interval decrease to [id number] today, will change to q1hr tomorrow Continue Gabapentin 300mg TID, Cymbalta 30mg daily, Percocet 5/325mg x 4 hours PRN Continue PT/OT eval (3) Polysubstance abuse: Alcohol withdrawal On Alcohol withdrawal protocol with gabapentin and ativan Alcohol level less than 3 Will wean off Librium Continue monitor closely for sign of alcohol with withdrawal and DT (4) Mood disorder: -Patient is no longer taking mood disorder medications as outpatient. Her mood appears stable at this time Polysubstance abuse UDS positive for marijuana Counseling on Marijuana cessation Hypokalemia K 3.2 on 09/18/19 Check BMP Nicotine abuse Refused nicotine path Counseling on to tobacco cessation DVT px on SCDs Admission and Anticipated Discharge Date Admission Date: September 17, 2019 Subjective Pt was seen and examined Lying in bed with no distress Pt said that pain improves Denies any chest pain, palpitation and SOB Physical Exam Physical Exam: General- No acute distress Head- atraumatic Eyes- PERRL, EOMI, ENT- oropharynx clear Neck- supple, no JVD Lungs- clear to auscultation Heart- regular rhythm; no murmur Abdomen- normal bowel sounds, soft, nontender Extremities- no calf tenderness, splints in BUE Neuro- alert, oriented x 3; PERRL, EOMI; no facial palsy; no dysarthria Skin- warm & dry Results & Data Results & Data ([facility]) Vital Signs (Past 12 Hours) Vital Signs Temp Pulse Pulse Pulse Resp BP Pulse Ox 09/20/19 19:46 36.9 C 108 H 16 155/81 H 98 09/20/19 15:53 36.5 C 112 H 16 148/72 H 99 09/20/19 15:00 117 H 09/20/19 13:40 36.5 C 109 H 16 136/72 100 09/20/19 10:35 115 H 153/81 H 97 (1) Closed fracture of left distal radius Encounter type: initial encounter Fracture morphology: Colles' Qualified Code(s): S52.532A - Colles' fracture of left radius, initial encounter for closed fracture (2) Closed fracture of right olecranon process Encounter type: initial encounter Qualified Code(s): S52.021A - Displaced fracture of olecranon process without intraarticular extension of right ulna, initial encounter for closed fracture
[2019-09-21] MEDS: GABAPENTIN 300 MG CAP PO SCH ×3 (00:35→17:46)
[2019-09-21] MEDS: OXYCODONE/ACETAMINOPHEN 5mg/325mg TAB PO PRN ×5 (03:35→20:09)
[2019-09-21] MEDS: HYDROmorphone PCA 30 MG/30 ML IV PRN ×2 (07:25→12:04)
[2019-09-21] MEDS: CHECK FENTANYL PATCH PLACEMENT SCH ×3 (07:28→23:27)
[2019-09-21] MEDS: ACETAMINOPHEN 325 MG TAB PO PRN ×2 (07:41→16:04)
--- NOTE | 2019-09-21 09:07 | Pain Management Progress Note ---
Date of Service September 21, 2019 Assessment & Plan (1) Closed fracture of right olecranon process: Encounter type: initial encounter Qualified Code(s): S52.021A - Displaced fracture of olecranon process without intraarticular extension of right ulna, initial encounter for closed fracture (2) Closed fracture of left distal radius: Encounter type: initial encounter Fracture morphology: Colles' Qualified Code(s): S52.532A - Colles' fracture of left radius, initial encounter for closed fracture (3) Alcohol abuse: Present on Admission?: Yes (4) Marijuana use: Present on Admission?: Yes (5) Mood disorder: * Continue Gabapentin 300mg TID, Cymbalta 30mg daily, Percocet 5/325mg q4 hours PRN * We further discussed the importance of weaning of the Dilaudid SCHOOL GUIDANCE COUNSELOR so that she could be discharged to home. The Dilaudid SCHOOL GUIDANCE COUNSELOR interval will remain at every 30 minutes, but recommend adjusting to q1hour later today. Patient is agreeable to this plan. * Questionable efficacy from the Fentanyl Patch consider d/c prior to discharge. Would not recommend outpatient use of Fentanyl due to co-morbid medical conditions. * Pain service will sign off on the patient at this time. Please call with any questions or concerns. Present on Admission?: Yes Subjective Patient is a 24 year old white female that suffered a fall on 09/16/19 and sustained a severely comminuted intraarticular left-sided distal radius fracture as well as a displaced right-sided olecranon fracture that did require surgical repair on 09/18/2019. She does also have a significant history of anxiety, depression, alcohol abuse, marijuana abuse, and alcoholic pancreatitis. She has not noticed any relief from the Fentanyl patch at 12mcg/hr. Gabapentin was increased to 300mg TID, which she is tolerating per her report. She is utilizing Percocet 5/325mg q4 hours and hydromorphone SCHOOL GUIDANCE COUNSELOR for breakthrough pain control. SCHOOL GUIDANCE COUNSELOR was adjusted to q30 minutes yesterday with plans to further wean today. Patient has utilized 17.5 mg of IV hydromorphone over the past 24 hours. Patient reports her pain is a 5/10 on the right and 6-7/10 on the left currently. She reports efficacy of the SCHOOL GUIDANCE COUNSELOR hydromorphone at controlling her pain, but is resistant to adjusting to q1 hour currently due to anxiety/concern over lack of pain control. She denies abdominal pain or bloating, but has not had a bowel movement. She has no further constitutional complaints. Plan of care discussed with Dr. Jeannie Khan. Physical Exam Physical Exam: GENERAL: This is a 24 year old white female that does not appear in any acute distress. Patient was sleeping upon entering the room, but was arousable. HEAD/FACE: Normocephalic and atraumatic. RESPIRATORY: Patient with unlabored breathing. No signs of respiratory distress. SKIN: [place], warm and dry. No rash noted. MS/EXTREMITY: There are splints on both forearms. Hand are warm to touch and do not appear swollen. NEURO: Alert and appears oriented. Speech is fluent. Cranial Nerves are grossly intact. PSYCH: Alert, pleasant, affect is somewhat anxious.
[2019-09-21] MEDS ORDERED: POTASSIUM CHLORIDE 20 MEQ TABCR PO STA (09:10)
[2019-09-21] MEDS: THIAMINE HCL 100 MG TAB PO SCH (09:16)
[2019-09-21] MEDS: FOLIC ACID 1 MG TAB PO SCH (09:16)
[2019-09-21] MEDS: PANTOprazole 40 MG TAB PO SCH (09:17)
[2019-09-21] MEDS: MAGNESIUM OXIDE 400 MG TAB PO SCH (09:17)
[2019-09-21] MEDS: DULOXETINE HCL 30 MG CAP PO SCH (09:17)
[2019-09-21 09:33] LABS: 7-Aminoclonaz, Confirm NEGATIVE ng/mL (<25); Codeine Urine NEGATIVE ng/mL (<50); Hydro-Alp Ur, GC/MS NEGATIVE ng/mL (<25); Hydrocodone Urine NEGATIVE ng/mL (<50); Hydromor Urine 2360 ng/mL (<50); Hydroxyethylflurazepam, Conf NEGATIVE ng/mL (<50); Hydroxymidazolam Ur, GC/MS >2000 ng/mL (<50); Hydroxytriazolam NEGATIVE ng/mL (<50); Lorazepam, Ur GC/MS 777 ng/mL (<50); Marijuana Quant, GCMS Urine 256 ng/mL (<5); Morphine Urine 239 ng/mL (<50); Nordiazepam, Confirm NEGATIVE ng/mL (<50); Norhydrocodone Conf Ur NEGATIVE ng/mL (<50); Noroxycodone Urine 1340 ng/mL (<50); Oxazepam Ur, GC/MS NEGATIVE ng/mL (<50); Oxycodone Urine 326 ng/mL (<50); Oxymorph Urine 339 ng/mL (<50); Temazepam, Confirm NEGATIVE ng/mL (<50)
[2019-09-21] MEDS ORDERED: LORazepam 0.5 MG TAB PO STA (14:47)
--- NOTE | 2019-09-21 15:28 | Hospitalist Progress Note ---
Date of Service September 21, 2019 Assessment & Plan (1) Closed fracture of right olecranon process: (2) Closed fracture of left distal radius: Present on admission after failing from the top of a shipping container about 7 to 8 feet Left elbow xray showed distal left radius and ulnar styloid fractures. Triquetral bone fracture. Right elbow xray showed nondisplaced fracture at the olecranon of the right elbow. Questionable dorsal subluxation of the distal ulna. Right elbow CT showed essentially nondisplaced olecranon fracture. Left Wrist CT showed redemonstration of the left distal radius and ulnar styloid fractures as described above. S/P day# 3 open Reduction and Internal Fixation of Left Intraarticular Distal Radius Fracture performed S/P day #3 Open Reduction and Internal Fixation of Right Olecranon Fracture performed by Dr. 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 pump Ok from ortho standpoint to discharge when pain improves Not interested in rehab Pain management consulted Plan to wean off the HOISTING [employer]INE[employer] pump- Interval decrease to q1hr, then d/c tomorrow Continue Gabapentin 300mg TID, Cymbalta 30mg daily, Percocet 5/325mg x 4 hours PRN Continue PT/OT eval (3) Polysubstance abuse: Alcohol withdrawal On Alcohol withdrawal protocol with gabapentin and ativan Alcohol level less than 3 Librium discontinued today Continue monitor closely for sign of alcohol with withdrawal and DT (4) Mood disorder: -Patient is no longer taking mood disorder medications as outpatient. Her mood appears stable at this time Polysubstance abuse UDS positive for marijuana Counseling on Marijuana cessation Hypokalemia K 3.4 yesterday K replaced Nicotine abuse Refused nicotine path Counseling on to tobacco cessation DVT px on SCDs Admission and Anticipated Discharge Date Admission Date: September 17, 2019 Subjective Pt was seen and examined Lying in bed with no distress Continue to have mild to moderate pain in both arms Denies any chest pain, palpitation and SOB Physical Exam Physical Exam: General- No acute distress Head- atraumatic Eyes- PERRL, EOMI, ENT- oropharynx clear Neck- supple, no JVD Lungs- clear to auscultation Heart- regular rhythm; no murmur Abdomen- normal bowel sounds, soft, nontender Extremities- no calf tenderness, splints in BUE Neuro- alert, oriented x 3; PERRL, EOMI; no facial palsy; no dysarthria Skin- warm & dry Results & Data Results & Data ([facility]) Vital Signs (Past 12 Hours) Vital Signs Temp Pulse Pulse Resp BP Pulse Ox 09/21/19 14:56 36.7 C 101 H 18 178/83 H 99 09/21/19 14:33 131 H 09/21/19 11:37 36.6 C 84 20 153/84 H 100 09/21/19 07:30 36.8 C 118 H 16 162/88 H 99 09/21/19 07:00 102 H 09/21/19 06:40 36.6 C 120 H 15 164/81 H 100 09/21/19 04:07 104 H 09/21/19 03:57 36.9 C 96 H 12 177/81 H 99 (1) Closed fracture of left distal radius Encounter type: initial encounter Fracture morphology: Colles' Qualified Code(s): S52.532A - Colles' fracture of left radius, initial encounter for closed fracture (2) Closed fracture of right olecranon process Encounter type: initial encounter Qualified Code(s): S52.021A - Displaced fracture of olecranon process without intraarticular extension of right ulna, initial encounter for closed fracture
[2019-09-21] MEDS ORDERED: Nursing to Pharmacy Communication ONE (20:47)
[2019-09-21] MEDS ORDERED: MULTIVITAMIN TAB PO SCH (21:00)
[2019-09-21] MEDS: SODIUM CHLORIDE 0.9% 1000ML 1,000 ML IV SCH (21:30)
[2019-09-22] MEDS: OXYCODONE/ACETAMINOPHEN 5mg/325mg TAB PO PRN ×3 (00:48→10:19)
[2019-09-22] MEDS: GABAPENTIN 300 MG CAP PO SCH ×2 (00:48→08:08)
[2019-09-22] MEDS: CHECK FENTANYL PATCH PLACEMENT SCH (08:05)
[2019-09-22] MEDS: MAGNESIUM OXIDE 400 MG TAB PO SCH (08:09)
[2019-09-22] MEDS: FOLIC ACID 1 MG TAB PO SCH (08:09)
[2019-09-22] MEDS: PANTOprazole 40 MG TAB PO SCH (08:09)
[2019-09-22] MEDS: DULOXETINE HCL 30 MG CAP PO SCH (08:09)
[2019-09-22] MEDS: THIAMINE HCL 100 MG TAB PO SCH (08:09)
[2019-09-22] MEDS ORDERED: LORazepam 0.5 MG TAB PO ONE (11:00)
--- NOTE | 2019-09-22 12:16 | Hospitalist Progress Note ---
Date of Service September 22, 2019 Assessment & Plan (1) Closed fracture of right olecranon process: (2) Closed fracture of left distal radius: Present on admission after failing from the top of a shipping container about 7 to 8 feet Left elbow xray showed distal left radius and ulnar styloid fractures. Triquetral bone fracture. Right elbow xray showed nondisplaced fracture at the olecranon of the right elbow. Questionable dorsal subluxation of the distal ulna. Right elbow CT showed essentially nondisplaced olecranon fracture. Left Wrist CT showed redemonstration of the left distal radius and ulnar styloid fractures as described above. S/P day# 4 open Reduction and Internal Fixation of Left Intraarticular Distal Radius Fracture performed S/P day #4 Open Reduction and Internal Fixation of Right Olecranon Fracture performed by Dr. 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 BENDER pump will discontinue today Ok from ortho standpoint to discharge when pain improves Not interested in rehab Pain management consulted Continue Gabapentin 300mg TID, Cymbalta 30mg daily, Percocet 5/325mg x 4 hours PRN Pt said that her boyfriend is there to help her for the next few weeks Follow up with ortho in 10 to 14 days (3) Polysubstance abuse: Alcohol withdrawal On Alcohol withdrawal protocol with gabapentin and ativan Alcohol level less than 3 Librium discontinued Continue monitor closely for sign of alcohol with withdrawal and DT Counseling on alcohol cessation (4) Mood disorder: Patient is no longer taking mood disorder medications as outpatient. Her mood appears stable at this time Anxiety Received Ativan while in patient Continue Gabapatin and Cymbalta Will no discharge on any Benzo due to co-morbid medical conditions. Polysubstance abuse UDS positive for marijuana Counseling on Marijuana cessation Hypokalemia K 3.4 Replaced while in the hospital Will encourage pt to increase K supplement on her diet Nicotine abuse Refused nicotine path Counseling on to tobacco cessation DVT px on SCDs CODE STATUS Will discharge home today Admission and Anticipated Discharge Date Admission Date: September 17, 2019 Subjective Pt was seen and examined Lying in bed with no distress Pt is very anxious that she does not want me to even close the door She said that she was trying to reach for her phone on the floor and twisted her arm She said that it was painful but the pain med helped Denies any chest pain, palpitation, dizziness and SOB Physical Exam Physical Exam: General- No acute distress Head- atraumatic Eyes- PERRL, EOMI, ENT- oropharynx clear Neck- supple, no JVD Lungs- clear to auscultation Heart- regular rhythm; no murmur Abdomen- normal bowel sounds, soft, nontender Extremities- no calf tenderness, splints in BUE Neuro- alert, oriented x 3; PERRL, EOMI; no facial palsy; no dysarthria Skin- warm & dry Results & Data Results & Data ([facility]) Vital Signs (Past 12 Hours) Vital Signs Temp Pulse Pulse Resp BP Pulse Ox 09/22/19 07:45 90 09/22/19 07:06 36.4 C L 103 H 20 149/93 H 97 09/22/19 03:24 36.7 C 98 H 19 158/89 H 98 09/22/19 00:52 36.8 C 99 H 18 186/84 H 99 (1) Closed fracture of left distal radius Encounter type: initial encounter Fracture morphology: [place]le[place]' Qualified Code(s): S52.532A - Colles' fracture of left radius, initial encounter for closed fracture (2) Closed fracture of right olecranon process Encounter type: initial encounter Qualified Code(s): S52.021A - Displaced fracture of olecranon process without intraarticular extension of right ulna, initial encounter for closed fracture
--- NOTE | 2019-09-22 18:01 | Discharge Summary ---
Date of Service September 22, 2019 Admission HPI Per Admitting Provider This is a 24 y/o female with a history of substance abuse, alcoholic pancreatitis, and depression who presents s/p fall last evening with resultant multiple fractures. Per pt, she was climbing on an 8 foot shipping container last evening because "I like to climb things" and was trying to climb back down when she slipped and fell off. She landed on her left wrist and right elbow primarily although she did hit her head as well. She denies LOC and states that she "jumped right back up" after she landed. She attempted to manage her symptoms at home but after a restless night of sleep, she noted worsening pain and that her left hand was numb so she came in for evaluation. She applied ice at home but did not take any medications for pain. No prior fractures. No prior reactions to anesthesia. She is right hand dominant. She denies chest pain, shortness of breath, palpitations, N/V, syncope, dizziness, headache or neck pain. She does note mild back pain. Denies history of cardiac or pulmonary diseases. She is concerned about her ability to go back home as she has minimal social support. Her boyfriend currently resides in [place]. She has a roommate but they are "not close" and she does not feel like she can rely on them for help. Admission Exam Per Admitting Provider Constitutional: WD/WN, vitals as above no acute distress and no altered mental status Eyes: + anicteric sclerae; no conjunctival abnormality Pinpoint pupils but equal ENMT: external ear and nose normal, oropharynx normal Neck: trachea midline Respiratory: normal respiratory effort, lungs clear to auscultation Auscultation: no rales, no rhonchi and no wheezes Cardiovascular: regular rate and regular rhythm Heart Sounds: no gallop, no murmur and no cardiac rub Extremities: no calf tenderness and no pedal edema Gastrointestinal: normal bowel sounds; abdomen not distended Percussion/Palpation: abdomen soft; abdomen nontender Musculoskeletal: normocephalic, head atraumatic and neck supple Extremities: no cyanosis Bilateral UE in splints limited skin exam. Able to move fingers bilaterally. Significant pain with lifting/moving either UE. Sensation to light touch intact bilater fingers. LE without edema. Neurologic: moves all extremities Speech / Cognition: normal speech Psychiatric: A+Ox3, euthymic affect Principal Diagnosis Closed fracture of right olecranon process: Closed fracture of left distal radius: Mood disorder: Polysubstance abuse Hypokalemia Nicotine abuse Discharge Exam General- No acute distress Head- atraumatic Eyes- PERRL, EOMI, ENT- oropharynx clear Neck- supple, no JVD Lungs- clear to auscultation Heart- regular rhythm; no murmur Abdomen- normal bowel sounds, soft, nontender Extremities- no calf tenderness, splints in BUE Neuro- alert, oriented x 3; PERRL, EOMI; no facial palsy; no dysarthria Skin- warm & dry Discharge Data Allergies Allergy/AdvReac Type Severity Reaction Status Date / Time amairani Allergy Mild GUMS SWELL Verified 08/30/19 09:33 mushroom Allergy Mild GUMS SWELL Verified 08/30/19 09:33 No Known Drug Allergies Allergy Unknown Unverified 09/16/19 08:20 Consultations 09/16/19 12:35 ED Decision to Admit Stat 09/16/19 14:12 Consult Orthopedic Surgery Routine 09/16/19 16:34 Consult Case Management - Discharge Planning Routine 09/17/19 08:26 Consult Anesthesiology Routine 09/19/19 11:33 Consult Pain Management Routine Procedures Performed Operation Date: 09/18/19 11:30 Actual Procedures p Left Intraarticular Distal Radius Open Reduction Internal Fixation(Left) - Cornell Mejia M.D. s Right Olecranon Open Reduction Internal Fixation(Right) - Cornell Mejia M.D. Ordered Studies 09/16/19 08:34 CT cervical spine wo con Stat CT head/brain wo con Stat 09/16/19 11:42 CT elbow RT wo con Stat CT wrist LT wo con Stat 09/18/19 US - OR guided needle placemen Routine 09/18/19 07:00 FL elbow RT 2V Routine FL fluoroscopy <1hr Routine FL wrist LT 3V RTN Routine CERVICAL SPINE CT CT DOSE: 1610.69 mGy.cm HISTORY: fall 7 ft, hit head, neck pain TECHNIQUE: Multiaxial CT images of the cervical spine were performed and reformatted in the sagittal and coronal plane without the use of contrast. A dose lowering technique was utilized adhering to the principles of ALARA. COMPARISON: None. FINDINGS: No fractures. No subluxation. Prevertebral soft tissues and the C1-C2 interval are intact. No pneumothorax. IMPRESSION: No fractures within the cervical spine. ACT 112: Negative or not required by law. Electronically signed by: Sadiq Pace M.D. 09/16/2019 10:04 AM Dictated: 09/16/19 1001 Transcribed: 09/16/19 1001 XR elbow LT min 3V routine, XR wrist LT min 3V routine, XR hand LT min 3V routine CLINICAL HISTORY: Fall. Left elbow, wrists, and hand pain. COMPARISON STUDY: None. FINDINGS: No fracture or dislocation within the left elbow. No elbow effusion. Soft tissue swelling within the left wrist. Nondisplaced ulnar styloid fracture. There is a comminuted and mildly impacted distal radius fracture with intra- articular extension small ossific density dorsal to the carpal bones consistent with a triquetral bone fracture. The distal radius fractures are slightly displaced. No additional fractures identified within the left hand. IMPRESSION: 1. Distal left radius and ulnar styloid fractures. 2. Triquetral bone fracture. 3. No fractures identified within the left elbow or left hand. ACT 112: Negative or not required by law. Electronically signed by: Sadiq Pace M.D. 09/16/2019 9:49 AM Dictated: 09/16/19 0946 Transcribed: 09/16/1946 XR elbow RT min 3V routine, XR wrist RT min 3V routine, XR hand RT min 3V routine CLINICAL HISTORY: Fall. Right arm, wrist, and hand pain. COMPARISON STUDY: None. FINDINGS: Nondisplaced fracture at the olecranon. There is associated elbow effusion. The radial head appears intact. No dislocation. Posterior soft tissue swelling within the right elbow. Questionable dorsal subluxation of the distal ulna, however, this is likely projectional as there is no significant soft tissue swelling. No fractures identified within the right wrist or right hand. IMPRESSION: 1. Nondisplaced fracture at the olecranon of the right elbow. 2. Questionable dorsal subluxation of the distal ulna, however, this is likely projectional as there is no significant soft tissue swelling. Clinical correlation recommended to assess for pain at this location. 3. No fractures identified within the right hand or right wrist. ACT 112: Negative or not required by law. Electronically signed by: Sadiq Pace M.D. 09/16/2019 9:46 AM Dictated: 09/16/19 0940 Transcribed: 09/16/19 0940 XR elbow RT min 3V routine, XR wrist RT min 3V routine, XR hand RT min 3V routine CLINICAL HISTORY: Fall. Right arm, wrist, and hand pain. COMPARISON STUDY: None. FINDINGS: Nondisplaced fracture at the olecranon. There is associated elbow effusion. The radial head appears intact. No dislocation. Posterior soft tissue swelling within the right elbow. Questionable dorsal subluxation of the distal ulna, however, this is likely projectional as there is no significant soft tissue swelling. No fractures identified within the right wrist or right hand. IMPRESSION: 1. Nondisplaced fracture at the olecranon of the right elbow. 2. Questionable dorsal subluxation of the distal ulna, however, this is likely projectional as there is no significant soft tissue swelling. Clinical correlation recommended to assess for pain at this location. 3. No fractures identified within the right hand or right wrist. ACT 112: Negative or not required by law. Electronically signed by: Sadiq Pace M.D. 09/16/2019 9:46 AM Dictated: 09/16/19 0940 Transcribed: 09/16/19 0940 XR elbow RT min 3V routine, XR wrist RT min 3V routine, XR hand RT min 3V routine CLINICAL HISTORY: Fall. Right arm, wrist, and hand pain. COMPARISON STUDY: None. FINDINGS: Nondisplaced fracture at the olecranon. There is associated elbow effusion. The radial head appears intact. No dislocation. Posterior soft tissue swelling within the right elbow. Questionable dorsal subluxation of the distal ulna, however, this is likely projectional as there is no significant soft tissue swelling. No fractures identified within the right wrist or right hand. IMPRESSION: 1. Nondisplaced fracture at the olecranon of the right elbow. 2. Questionable dorsal subluxation of the distal ulna, however, this is likely projectional as there is no significant soft tissue swelling. Clinical correlation recommended to assess for pain at this location. 3. No fractures identified within the right hand or right wrist. ACT 112: Negative or not required by law. Electronically signed by: Sadiq Pace M.D. 09/16/2019 9:46 AM Dictated: 09/16/1940 Transcribed: 09/16/19939 XR elbow LT min 3V routine, XR wrist LT min 3V routine, XR hand LT min 3V routine CLINICAL HISTORY: Fall. Left elbow, wrists, and hand pain. COMPARISON STUDY: None. FINDINGS: No fracture or dislocation within the left elbow. No elbow effusion. Soft tissue swelling within the left wrist. Nondisplaced ulnar styloid fracture. There is a comminuted and mildly impacted distal radius fracture with intra- articular extension small ossific density dorsal to the carpal bones consistent with a triquetral bone fracture. The distal radius fractures are slightly displaced. No additional fractures identified within the left hand. IMPRESSION: 1. Distal left radius and ulnar styloid fractures. 2. Triquetral bone fracture. 3. No fractures identified within the left elbow or left hand. ACT 112: Negative or not required by law. Electronically signed by: Sadiq Pace M.D. 09/16/2019 9:49 AM Dictated: [birth year]16/1948 Transcribed: 09/16/[address] DOSE: HISTORY: fall 7 ft, hit head TECHNIQUE: Multiaxial CT images of the head were performed without the use of intravenous contrast. Automated exposure control was utilized for this study. A dose lowering technique was utilized adhering to the principles of ALARA. Comparison: Head CT 03/04/2019. Findings: Mild motion artifact. Mild mucosal thickening within the paranasal sinuses. The mastoid air cells are clear. The calvarium and skull base are intact. The ventricles and sulci are within normal limits. There is no mass, hematoma, midline shift, or acute infarct. Impression: No acute intracranial abnormality. ACT 112: Negative or not required by law. Electronically signed by: Sadiq Pace M.D. 09/16/2019 9:59 AM Dictated: 09/16/19 0953 Transcribed: 09/16/1953 XR elbow LT min 3V routine, XR wrist LT min 3V routine, XR hand LT min 3V routine CLINICAL HISTORY: Fall. Left elbow, wrists, and hand pain. COMPARISON STUDY: None. FINDINGS: No fracture or dislocation within the left elbow. No elbow effusion. Soft tissue swelling within the left wrist. Nondisplaced ulnar styloid fracture. There is a comminuted and mildly impacted distal radius fracture with intra- articular extension small ossific density dorsal to the carpal bones consistent with a triquetral bone fracture. The distal radius fractures are slightly displaced. No additional fractures identified within the left hand. IMPRESSION: 1. Distal left radius and ulnar styloid fractures. 2. Triquetral bone fracture. 3. No fractures identified within the left elbow or left hand. ACT 112: Negative or not required by law. Electronically signed by: Sadiq Pace M.D. 09/16/2019 9:49 AM Dictated: 09/16/1946 Transcribed: 09/16/1946 XR elbow RT min 3V routine, XR wrist RT min 3V routine, XR hand RT min 3V routine CLINICAL HISTORY: Fall. Right arm, wrist, and hand pain. COMPARISON STUDY: None. FINDINGS: Nondisplaced fracture at the olecranon. There is associated elbow effusion. The radial head appears intact. No dislocation. Posterior soft tissue swelling within the right elbow. Questionable dorsal subluxation of the distal ulna, however, this is likely projectional as there is no significant soft tissue swelling. No fractures identified within the right wrist or right hand. IMPRESSION: 1. Nondisplaced fracture at the olecranon of the right elbow. 2. Questionable dorsal subluxation of the distal ulna, however, this is likely projectional as there is no significant soft tissue swelling. Clinical correlation recommended to assess for pain at this location. 3. No fractures identified within the right hand or right wrist. ACT 112: Negative or not required by law. Electronically signed by: Sadiq Pace M.D. 09/16/2019 9:46 AM Dictated: 09/16/1940 Transcribed: 09/16/1940 XR chest 1V portable HISTORY: Fall. Trauma. Bilateral arm pain. eval trauma COMPARISON: Chest 03/10/2019. FINDINGS: Stable calcified granuloma within the right upper lobe. Otherwise, the lungs are clear. No pleural effusions. No pneumothorax. The heart is normal in size. No fractures within the visualized osseous structures. IMPRESSION: No acute process. ACT 112: Negative or not required by law. Electronically signed by: Sadiq Pace M.D. 09/16/2019 9:51 AM Dictated: 09/16/19 0949 Transcribed: 09/16/[address] DOSE: 183.79 mGy.cm HISTORY: Fall. Right elbow pain. further eval fracture TECHNIQUE: Multiaxial CT images of the right elbow were performed and reformatted in the sagittal and coronal plane without the use of contrast. A dose lowering technique was utilized adhering to the principles of ALARA. COMPARISON: Right elbow 09/16/2019. FINDINGS: Redemonstration of the essentially nondisplaced fracture through the olecranon. This demonstrates up to 3 mm of distraction. The distal humerus and proximal radius appear intact. There is an associated joint effusion and posterior soft tissue swelling. IMPRESSION: Essentially nondisplaced olecranon fracture. ACT 112: Negative or not required by law. Electronically signed by: Sadiq Pace M.D. 09/16/2019 12:33 PM Dictated: 09/16/19 1231 Transcribed: 09/16/[address] DOSE: 167.33 mGy.cm HISTORY: Fall. Left wrist fracture. further eval fracture TECHNIQUE: Multiaxial CT images of the left wrist were performed and reformatted in the sagittal and coronal plane without the use of contrast. A dose lowering technique was utilized adhering to the principles of ALARA. COMPARISON: Left wrist 09/16/2019. FINDINGS: There is again noted a comminuted and impacted fracture of the distal radius which extends into the proximal shaft. The fracture fragments are mildly displaced. The proximal shaft fracture demonstrates up to 4 mm of volar displacement. Small bony fragments dorsal to the scaphoid bone is likely secondary to the fractured radius. The carpal bones appear intact. There is a small fracture at the ulnar styloid. Soft tissue swelling and a small effusion at the wrist. No dislocation. IMPRESSION: Redemonstration of the left distal radius and ulnar styloid fractures as described above. ACT 112: Negative or not required by law. Electronically signed by: Sadiq Pace M.D. 09/16/2019 12:31 PM Dictated: 09/16/19 1227 Transcribed: 09/16/19 1227 FL elbow RT 2V CLINICAL HISTORY: 24 years-old Female presenting with ORIF RT OLECRANON. TECHNIQUE: 2 fluoroscopic image(s) recorded as part of an intraoperative proc edure. COMPARISON: CT and plain radiographs from 09/16/2019. FINDINGS/IMPRESSION: Curved plate and screw fixation of the olecranon and proximal metaphysis of the ulna across the axillary oriented olecranon fracture. Elbow joint congruent. Please see surgical report for further details. Dose area product (mGy.cm^2): 13.8207. Fluoroscopy time: 1 minute 29 seconds. Number or time of high level fluoroscopy (HLF), digital spot, or digital subtraction images: 0. ACT 112: Negative or not required by law. Electronically signed by: Oli Benjamin M.D. 09/18/2019 3:36 PM Dictated: 09/18/19 1534 Transcribed: 09/18/19 1534 FL wrist LT 3V RTN CLINICAL HISTORY: LEFT WRIST ORIF COMPARISON STUDY: Left wrist radiographs and CT of the left wrist September 16, 2019. FLUOROSCOPY TIME: 1 minute and 49 seconds. FLUOROSCOPIC IMAGES: 5 FINDINGS: These images demonstrate plate and screw fixation of the distal left radial fracture. Hardware is intact. There are no unexpected radiopaque foreign bodies. Fracture alignment is improved and appears near anatomic. Fracture of the ulnar styloid is again noted. IMPRESSION: Fluoroscopy provided for internal fixation of the distal left radial fracture. ACT 112: Negative or not required by law. Electronically signed by: Nathanael Jurado M.D. 09/18/2019 2:15 PM Dictated: 09/18/19 1413 Transcribed: 09/18/19 1413 XR chest 1V portable CLINICAL HISTORY: 24 years-old Female presenting with low o2. TECHNIQUE: Portable upright AP view of the chest was obtained. COMPARISON: 09/16/2019 and CTA chest from 03/05/2019. FINDINGS: Cardiomediastinal silhouette normal. No focal opacity. No large effusion or pneumothorax. Osseous structures normal. Upper abdomen normal. IMPRESSION: 1. No acute cardiopulmonary disease. ACT 112: Negative or not required by law. Electronically signed by: Oli Benjamin M.D. 09/20/2019 6:59 AM Dictated: 09/20/19 0654 Transcribed: 09/20/19 0654 Hospital Course (1) Closed fracture of right olecranon process: (2) Closed fracture of left distal radius: Present on admission after failing from the top of a shipping container about 7 to 8 feet Left elbow xray showed distal left radius and ulnar styloid fractures. Triquetral bone fracture. Right elbow xray showed nondisplaced fracture at the olecranon of the right elbow. Questionable dorsal subluxation of the distal ulna. Right elbow CT showed essentially nondisplaced olecranon fracture. Left Wrist CT showed redemonstration of the left distal radius and ulnar styloid fractures as described above. S/P day# 4 open Reduction and Internal Fixation of Left Intraarticular Distal Radius Fracture performed S/P day #4 Open Reduction and Internal Fixation of Right Olecranon Fracture pe rformed by Dr. Cornell Mejia [employer] pump will discontinue today Ok from ortho standpoint to discharge when pain improves Not interested in rehab Pain management consulted Continue Gabapentin 300mg TID, Cymbalta 30mg daily, Percocet 5/325mg x 4 hours PRN Pt said that her boyfriend is there to help her for the next few weeks Follow up with ortho in 10 to 14 days (3) Alcohol abuse: On Alcohol withdrawal protocol with gabapentin and ativan Alcohol level less than 3 on admission Librium discontinued Continue monitor closely for sign of alcohol with withdrawal and DT Counseling on alcohol cessation (4) Mood disorder: Patient is no longer taking mood disorder medications as outpatient. Her mood appears stable at this time Anxiety Received Ativan while in patient Continue Gabapatin and Cymbalta Will no discharge on any Benzo due to co-morbid medical conditions. Polysubstance abuse UDS positive for marijuana Counseling on Marijuana cessation Hypokalemia K 3.4 Replaced while in the hospital Will encourage pt to increase K supplement on her diet Nicotine abuse Refused nicotine path Counseling on to tobacco cessation DVT px on SCDs CODE STATUS Will discharge home today Total Time Total Time Spent Total Time Spent (In Minutes): 35 minutes Total Time Includes: Examination of the Patient, Discharge Planning, Medication Reconciliation, Communication With Other Providers and Other Discharge Plan Discharge Items Patient Disposition: Home - Self-Care Reason For Visit: LEFT WRIST FX, RIGHT ELBOX FX Discharge Diagnosis: Closed fracture of right olecranon process: Closed fracture of left distal radius: Mood disorder: Polysubstance abuse Hypokalemia Nicotine abuse Activity: Per Instructions section Non-emergency contact: Surgeon Call non-emergency contact if: your pain is not controlled, your temperature is above 101.5, your wound has increased redness and your wound has increased drainage Follow-up/Referrals: William Mullins MD [Primary Care Provider] - 09/28/19 8:20 am (09/28/2019 8:20 AM Yesy Faustin MD General Internal Medicine [facility] ) Cornell Mejia M.D. [Physician] - Diet: Regular Addtl Attending Provider Instructions: Follow up with your primary care provider Dr. Mullins on 09/27 @ 8:20 AM Follow up with orthopedic Dr. Mejia in 10 to 14 days (Please call [phone] for the appointment ) Do not drive or operate any machine while on percocet Please hold next dose of percocet, gabapentin if you become drowsy and lethargy (Percocet script resent to [facility] in [place] instead [facility]) Counseling on alcohol and marijuana cessation Fall precaution Increase potassium intake in your diet Please follow orthopedic recommendations below Things to Watch Out For -Go to the Emergency Room if you have sudden onset of chest pain, shortness of breath, or uncontrollable pain. -Call the clinic immediately if you have a sudden increase in the amount of wound drainage or the drainage becomes thick, yellow or green, or foul-smelling. -For routine questions, call the clinic at [phone] during regular business hours (8am-5pm). For urgent issues after regular business hours, you may call the clinic to be connected to the on-call physician. Splint/Dressings -Do not remove your splints or dressings until you follow up in clinic or with therapy. -Keep the splints and dressings clean and dry. If the splint padding gets damp, you may use a hair designer on a low heat setting to dry it out. If the splint padding is soaked, call the clinic to have the splint replaced. -Do not put any objects down inside the splints (such as coat hangers). They could scratch your skin and cause a serious infection underneath the splint. Sling/Activity -Keep your hands elevated and move your fingers frequently to reduce swelling and prevent stiffness. -You may wear a sling for comfort, but come out of the sling 4-5 times a day for active range of motion exercises for your bilateral shoulders and left elbow. -Do not lift any objects greater than 1 pound or bear any weight through either arm. Followup -Call [facility] at [phone] and schedule a followup appointment with Dr. Mejia for 10-14 days after your surgery. Pending Studies at Discharge: No Stand-Alone Forms: My [facility], Smoking Cessation Medications and DC Order Prescriptions: New thiamine HCl (vitamin B1) [Vitamin B-1] 100 mg Tablet 100 mg PO QAM 30 Days Qty: 30 RF: 0 baclofen 10 mg Tablet 10 mg PO BID PRN (Reason: muscle spasm) Qty: 30 RF: 0 docusate sodium 100 mg Capsule 100 mg PO BID PRN (Reason: constipation) Qty: 30 RF: 0 gabapentin 300 mg Capsule 300 mg PO Q8H Qty: 30 RF: 0 folic acid 1 mg Tablet 1 mg PO QAM 30 Days Qty: 30 RF: 0 duloxetine 30 mg Capsule,Delayed Release(Dr/Ec) 30 mg PO QAM Qty: 30 RF: 0 oxycodone-acetaminophen [Percocet] 5-325 mg tablet 1 tab PO Q6H Qty: 20 RF: 0 Continued multivitamin Tablet 1 tab PO QPM RF: 0 albuterol sulfate 90 mcg/actuation HFA aerosol inhaler 2 puffs INH QID PRN (Reason: shortness of breath or wheezing) Qty: 18 RF: 0 pantoprazole [Protonix] 40 mg tablet,delayed release (DR/EC) 40 mg PO DAILY 28 Days Qty: 28 RF: 0 norgestimate-ethinyl estradiol [Tri-Sprintec (28)] 0.18/0.215/0.25 mg-35 mcg (28) tablet 1 tab PO DAILY RF: 0 Discharge Orders: Discharge Order (Routine); Ordered 09/22/19 Ordered By: Antoine Mai Admission Data Admit Date/Time: 09/17/19 07:02 Attending Provider: Antoine Mai Admit Provider: Andrew Rios Primary Care Provider: William Mullins Other Providers: Andrew Rios ; Martin Wiseman ; Milo Velazquez ; Jeannie Khan Other Interventions: Discharge Summary Assessment (RN) Last Done: 09/22/19 12:59 DC Date/Time DO NOT enter until pt leaves facility: 09/22/19 14:10
== END 2019-09-22 14:10 | disposition home or self-care (01) | DRG 493 ==
LOC: 3E 07:51 → ED 07:51 → 3E 13:43 → 2W 15:10 → SUATTDRO 09-17 07:02

== ENCOUNTER 2019-10-06 21:37 | Inpatient (IN) ==
[2019-10-06] MEDS ORDERED: HYDROmorphone INJ 0.5 MG/0.5 ML SYR IV STA ×2 (22:36→23:44)
[2019-10-06] MEDS ORDERED: ONDANSETRON INJ 2 MG/ML 2 ML VIAL IV STA ×2 (22:36→23:44)
[2019-10-06] MEDS ORDERED: SODIUM CHLORIDE 0.9% 1000ML 1,000 ML IV SCH (22:45)
[2019-10-06 22:53] LABS: Basophils # (auto) 0.03 K/uL (0-0.2); Basophils % (auto) 0.5 %; Eosinophils # (auto) 0.22 K/uL (0-0.5); Eosinophils % (auto) 3.4 %; Hematocrit (blood only) 38.4 % (37-47); Hemoglobin 12.9 g/dL (12.0-16.0); Immature Granulocytes # (auto) 0.02 K/uL (0.00-0.02); Immature Granulocytes % (auto) 0.3 %; Lymphocytes # (auto) 2.99 K/uL (1.2-3.4); Lymphocytes % (auto) 46.9 %; Mean Corpuscular Hemoglobin 30.5 pg (25-34); Mean Corpuscular Hgb Conc 33.6 g/dL (32-36); Mean Corpuscular Volume 90.8 fL (80-100); Mean Platelet Volume 8.5 fL (7.4-10.4); Monocytes # (auto) 0.53 K/uL (0.11-0.59); Monocytes % (auto) 8.3 %; Neutrophils # (auto) 2.59 K/uL (1.4-6.5); Neutrophils % (auto) 40.6 %; Platelet Count 300 K/uL (130-400); RDW Coefficient of Variation 16.6 % (11.5-14.5); RDW Standard Deviation 54.6 fL (36.4-46.3); Red Blood Count 4.23 M/uL (4.2-5.4); White Blood Count 6.38 K/uL (4.8-10.8)
[2019-10-06 23:05] LABS: Appearance Urine Cloudy (Clear); Bilirubin Urine Negative (Negative); Blood Urine 2+ (Negative); Color Urine Yellow; Epithelial Cell Urine Auto >30 /lpf (0-5); Glucose Urine UA Negative (Negative); Ketones Urine Negative (Negative); Leukocyte Esterase Urine Negative (Negative); Nitrite Urine Negative (Negative); Protein Urine Negative (Negative); Specific Gravity Urine 1.009 (1.000-1.030); Urobilinogen Urine Negative (Negative); pH Urine 5.5 (4.5-7.5)
[2019-10-06 23:13] LABS: Albumin Globulin Ratio 0.9 (0.9-2); Albumin Level 3.7 gm/dl (3.4-5.0); BUN Creatinine Ratio 21.8 (10-20); Bilirubin,Total 0.4 mg/dl (0.2-1); Calcium 8.7 mg/dl (8.5-10.1); Creatinine Clr Calc Pharmacy 123.7 ml/min; Est GFR (African American) 144.2; Est GFR (Non-African American) 124.4; Magnesium 2.2 mg/dl (1.8-2.4); Potassium 3.5 mmol/L (3.5-5.1); Total Protein 7.7 gm/dl (6.4-8.2)
[2019-10-06 23:23] LABS: Bacteria Urine Automated 2+ (Negative); Cast Urine Automated 0 /lpf (0-5); Mucus Urine Present (None Prsent)
[2019-10-06] MEDS ORDERED: IOVERSOL 100ml IV PRN (23:25)
[2019-10-07] MEDS ORDERED: MULTI-VITAMIN INFUSION 10 ML, THIAMINE HCL 100 MG, FOLIC ACID 1 MG in SODIUM CHLORIDE 0... IV ONE (00:48)
[2019-10-07] MEDS ORDERED: OXYCODONE HCL IR 5 MG TAB (IMMEDIATE RELEASE) PO PRN (00:49)
[2019-10-07] MEDS ORDERED: PROMETHAZINE 12.5 MG/50.5 ML NSS IV ONE (02:05)
[2019-10-07] MEDS ORDERED: KETOROLAC TROMETHAMINE 15 MG/ML VIAL IV ONE ×2 (02:26→05:16)
--- NOTE | 2019-10-07 02:27 | History & Physical Report ---
Date of Service October 07, 2019 Assessment & Plan (1) Recurrent pancreatitis: History of alcohol abuse anxiety/mood disorder, much improved as per patient ongoing tobacco abuse chronic thrombocytopenia Medical telemetry given history of alcohol withdrawal IVF Judicious narcotic use given history of substance abuse. Clear liquids for now DT precautions Patient counseled regarding importance of abstinence from alcohol. Nicotine patch PRN DVT prophylaxis. SCDs RE thrombocytopenia Full code Text document was generated using [employer] voice recognition software. It may contain grammatical or spelling errors. Kindly contact undersigned for clarification of any documentation item in question. History of Present Illness Chief Complaint: Abdominal pain Primary Care Provider: William Mullins MD History obtained from patient and records. Medical history significant for anxiety/mood disorder, ongoing tobacco/alcohol abuse, recurrent pancreatitis, chronic thrombocytopenia. Recent confinement 3 weeks ago for closed fractures of the right olecranon process and left distal radius secondary to fall from a shipping container status post surgery. Patient recovering well at home. Last night, patient shared some alcoholic drinks with a friend after being sober for weeks. She subsequently noted achy mid abdominal pain with nausea and emesis reminiscent of pancreatitis pain. No chest pain, no S OB, no fever no chills. Intractable pain at the ER. Medical History as above Surgical History : D&C Family History : Hypertension Personal/Social history : 5 cigarettes a day, daily EtOH intake the last week, currently unemployed Allergies Allergy/AdvReac Type Severity Reaction Status Date / Time amairani Allergy Mild GUMS SWELL Verified 10/06/19 22:40 mushroom Allergy Mild GUMS SWELL Verified 10/06/19 22:40 No Known Drug Allergies Allergy Unknown Verified 10/06/19 22:40 Home Medications Home Medications Medication Instructions Recorded Confirmed Type multivitamin 1 tab PO QPM 09/24/18 10/06/19 History norgestimate-ethinyl estradiol 1 tab PO DAILY 02/01/19 10/06/19 History [Tri-Sprintec (28)] albuterol sulfate 2 puffs INH QID PRN #18 gm 03/10/19 10/06/19 Rx folic acid 1 mg PO QAM 30 Days #30 tab 09/22/19 10/06/19 Rx thiamine HCl (vitamin B1) [Vitamin 100 mg PO QAM 30 Days #30 tab 09/22/19 10/06/19 Rx B-1] Past Med/Surg History Medical History Alcohol withdrawal (Acute) Anemia Hypokalemia Mood disorder (Acute) Polysubstance abuse Recurrent pancreatitis (Acute) Thrombocytopenia Surgical History History of orthopedic surgery Family History Other No significant family history Social History Preferred Language: Stateless Communication Ability: Effective 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 Beliefs That Will Affect Care: None Current Living Situation: Other Current Living Situation Comment: roommate Feels Safe at Home: Yes Safety Concerns: Feels Safe At This Time Smoking Status: Current every day smoker Tobacco Type: cigarettes ; Cigarettes Per Day: 4 ; Second Hand Exposure: No ; Hx Alcohol Use: Yes Alcohol type: beer, wine and hard liquor Hx Substance Use: Yes substance use type: marijuana and painkillers Last Used Substance: Hours (ago) Review of Systems Review of Systems: As per HPI, all 10 systems reviewed, all other ROS negative Physical Exam Physical Exam: GENERAL: uncomfortable, lying in her right lateral decubitus position, no respiratory distress, alcoholic fetor SKIN: Pallor, warm HEENT: Pale palpebral conjunctivae, no ptosis, dry buccal mucosa NECK : Supple, no tenderness CHEST : Decreased breath sounds , no tenderness HEART : RRR, no obvious murmurs ABDOMEN: Some distention, epigastric tenderness EXTREMITIES : No LE swelling/tenderness, no other conspicuous deformities noted NEUROLOGIC : Coherent, no facial asymmetry, no other gross focality Results & Data Results & Data ([facility]) Vital Signs (Past 12 Hours) Vital Signs Temp Pulse Resp BP Pulse Ox 10/07/19 01:01 90 13 131/95 98 10/07/19 00:30 92 H 21 101/56 L 10/07/19 00:00 97 H 16 110/78 10/06/19 23:00 89 20 102/64 96 10/06/19 22:51 89 16 108/73 99 10/06/19 22:00 36.7 C 83 20 113/81 98 10/06/19 21:54 89 16 113/81 Laboratory Results Laboratory Results WBC 6.38 K/uL (4.8-10.8) 10/06/19 22:00 RBC 4.23 M/uL (4.2-5.4) 10/06/19 22:00 Hgb 12.9 g/dL (12.0-16.0) 10/06/19 22:00 Hct 38.4 % (37-47) 10/06/19 22:00 MCV 90.8 fL (80-100) 10/06/19 22:00 MCH 30.5 pg (25-34) 10/06/19 22:00 MCHC 33.6 g/dL (32-36) 10/06/19 22:00 RDW Std Deviation 54.6 fL (36.4-46.3) H 10/06/19 22:00 RDW Coeff of Nayana 16.6 % (11.5-14.5) H 10/06/19 22:00 Plt Count 300 K/uL (130-400) 10/06/19 22:00 MPV 8.5 fL (7.4-10.4) 10/06/19 22:00 Immature Gran % (Auto) 0.3 % 10/06/19 22:00 Neut % (Auto) 40.6 % 10/06/19 22:00 Lymph % (Auto) 46.9 % 10/06/19 22:00 [place] % (Auto) 8.3 % 10/06/19 22:00 Eos % (Auto) 3.4 % 10/06/19 22:00 Baso % (Auto) 0.5 % 10/06/19 22:00 Immature Gran # (Auto) 0.02 K/uL (0.00-0.02) 10/06/19 22:00 Neut # (Auto) 2.59 K/uL (1.4-6.5) 10/06/19 22:00 Lymph # (Auto) 2.99 K/uL (1.2-3.4) 10/06/19 22:00 [place] # (Auto) 0.53 K/uL (0.11-0.59) 10/06/19 22:00 Eos # (Auto) 0.22 K/uL (0-0.5) 10/06/19 22:00 Baso # (Auto) 0.03 K/uL (0-0.2) 10/06/19 22:00 Sodium 138 mmol/L (136-145) 10/06/19 22:00 Potassium 3.5 mmol/L (3.5-5.1) 10/06/19 22:00 Chloride 105 mmol/L (98-107) 10/06/19 22:00 Carbon Dioxide 22 mmol/L (21-32) 10/06/19 22:00 Anion Gap 11.0 (3-11) 10/06/19 22:00 BUN 14 mg/dl (7-18) 10/06/19 22:00 Creatinine 0.62 mg/dl (0.6-1.2) 10/06/19 22:00 Est Cr Clr Drug Dosing 123.7 ml/min 10/06/19 22:00 Est GFR ( Amer) 144.2 10/06/19 22:00 Est GFR (Non-Af Amer) 124.4 10/06/19 22:00 BUN/Creatinine Ratio 21.8 (10-20) H 10/06/19 22:00 Glucose 99 mg/dl (70-99) 10/06/19 22:00 Calcium 8.7 mg/dl (8.5-10.1) 10/06/19 22:00 Magnesium 2.2 mg/dl (1.8-2.4) 10/06/19 22:00 Total Bilirubin 0.4 mg/dl (0.2-1) 10/06/19 22:00 AST 36 U/L (15-37) 10/06/19 22:00 ALT 33 U/L (12-78) 10/06/19 22:00 Alkaline Phosphatase 92 U/L (45-117) 10/06/19 22:00 Total Protein 7.7 gm/dl (6.4-8.2) 10/06/19 22:00 Albumin 3.7 gm/dl (3.4-5.0) 10/06/19 22:00 Globulin 4.0 gm/dl (2.5-4.0) 10/06/19 22:00 Albumin/Globulin Ratio 0.9 (0.9-2) 10/06/19 22:00 Amylase 58 U/L (25-115) 10/06/19 22:00 Lipase 519 U/L (73-393) H 10/06/19 22:00 Urine Color Yellow 10/06/19 22:30 Urine Appearance Cloudy (Clear) A 10/06/19 22:30 Urine pH 5.5 (4.5-7.5) 10/06/19 22:30 Ur Specific [place] 1.009 (1.000-1.030) 10/06/19 22:30 Urine Protein Negative (Negative) 10/06/19 22:30 Urine Glucose (UA) Negative (Negative) 10/06/19 22:30 Urine Ketones Negative (Negative) 10/06/19 22:30 Urine Blood 2+ (Negative) H 10/06/19 22:30 Urine Nitrite Negative (Negative) 10/06/19:30 Urine Bilirubin Negative (Negative) 10/06/19:30 Urine Urobilinogen Negative (Negative) 10/06/19 22:30 Ur Leukocyte Esterase Negative (Negative) 10/06/19 22:30 Urine WBC (Auto) 1-5 /hpf (0-5) 10/06/19 22:30 Urine RBC (Auto) 5-10 /hpf (0-4) H 10/06/19 22:30 U Hyaline Cast (Auto) 0 /lpf (0-5) 10/06/19 22:30 U Epithel Cells (Auto) >30 /lpf (0-5) H 10/06/19 22:30 Urine Bacteria (Auto) 2+ (Negative) H 10/06/19 22:30 Urine Mucus Present (None Prsent) A 10/06/19 22:30 Urine Yeast Not Reportable 10/06/19 22:30 POC Ur Test NEG (NEG) 10/06/19 22:[address] abdomen pelvis initial read: Peripancreatic fat stranding and fluid compatible with acute pancreatitis. No evidence of parenchymal necrosis. No organized peripancreatic collection. Gallbladder distention.
[2019-10-07 02:57] LABS: Amphetamines+Metham, Urine Neg (Neg); Barbiturates, Urine Neg (Neg); Benzodiazepine, Urine Neg (Neg); Cocaine, Urine Neg (Neg); MDMA (Ecstacy), Urine Neg (Neg); Methadone, Urine Neg (Neg); Opiate, Urine Neg (Neg); Phencyclidine, Urine Neg (Neg)
[2019-10-07] MEDS ORDERED: LORazepam 3 MG/6 ML VIAL IV PRN (03:57)
[2019-10-07] MEDS ORDERED: ATIVAN IV ALCOHOL WITHDRAWL IV PRN (03:57)
[2019-10-07] MEDS ORDERED: GABAPENTIN 1200MG ALCOHOL WITHDRAWAL LOAD PO STA (03:57)
[2019-10-07] MEDS ORDERED: FAMOTIDINE 20MG IV PUSH 20 MG/5 ML SYR IV STA (04:09)
[2019-10-07] MEDS ORDERED: GABAPENTIN 600 MG TAB PO SCH (04:15)
[2019-10-07 04:35] LABS: Hematocrit (blood only) 34.4 % (37-47); Hemoglobin 11.4 g/dL (12.0-16.0); Mean Corpuscular Hemoglobin 30.2 pg (25-34); Mean Corpuscular Hgb Conc 33.1 g/dL (32-36); Mean Corpuscular Volume 91.2 fL (80-100); Mean Platelet Volume 8.3 fL (7.4-10.4); Platelet Count 218 K/uL (130-400); RDW Coefficient of Variation 16.6 % (11.5-14.5); RDW Standard Deviation 54.7 fL (36.4-46.3); Red Blood Count 3.77 M/uL (4.2-5.4); White Blood Count 4.98 K/uL (4.8-10.8)
[2019-10-07 04:54] LABS: Albumin Level 3.1 gm/dl (3.4-5.0); BUN Creatinine Ratio 20.4 (10-20); Calcium 7.7 mg/dl (8.5-10.1); Creatinine Clr Calc Pharmacy 132.3 ml/min; Est GFR (African American) 147.4; Est GFR (Non-African American) 127.2; Potassium 3.8 mmol/L (3.5-5.1)
[2019-10-07 04:57] LABS: Albumin Globulin Ratio 0.9 (0.9-2); Bilirubin,Total 0.4 mg/dl (0.2-1); Globulin 3.4 gm/dl (2.5-4.0); Total Protein 6.5 gm/dl (6.4-8.2)
[2019-10-07 05:26] LABS: Basophils # (auto) 0.03 K/uL (0-0.2); Basophils % (auto) 0.6 %; Immature Granulocytes # (auto) 0.01 K/uL (0.00-0.02); Immature Granulocytes % (auto) 0.2 %; Lymphocytes # (auto) 2.86 K/uL (1.2-3.4); Lymphocytes % (auto) 57.4 %; Monocytes # (auto) 0.45 K/uL (0.11-0.59); Neutrophils # (auto) 1.43 K/uL (1.4-6.5); Neutrophils % (auto) 28.8 %
[2019-10-07] MEDS: LACTATED RINGER'S 1,000 ML IV SCH ×4 (05:32→20:23)
[2019-10-07] MEDS: OXYCODONE HCL IR 5 MG TAB (IMMEDIATE RELEASE) PO PRN ×3 (06:06→22:27)
--- NOTE | 2019-10-07 07:52 | Emergency Department Note ---
History of Present Illness General Chief complaint: Abdominal Pain Stated complaint: abd pain Time Seen by Provider: 10/06/19 22:30 History of Present Illness Maximum Pain Intensity: 15 This is a 24-year-old female with a history of pancreatitis that presents to the emergency department via private vehicle with complaints of "abdominal pain". The patient states that she has a history of alcohol abuse and notes that she last drank this morning. 5 hours ago she began with epigastric abdominal discomfort. This is a 10/10. No alleviating factors. She has associated chills. No fevers, chest pain or shortness of breath. This does feel identical to previous pancreatitis episodes. No trauma or injury. No dysuria. Home Medications Home Medications Medication Instructions Recorded Confirmed Type multivitamin 1 tab PO QPM 09/24/18 10/06/19 History norgestimate-ethinyl estradiol 1 tab PO DAILY 02/01/19 10/06/19 History [Tri-Sprintec (28)] albuterol sulfate 2 puffs INH QID PRN #18 gm 03/10/19 10/06/19 Rx folic acid 1 mg PO QAM 30 Days #30 tab 09/22/19 10/06/19 Rx thiamine HCl (vitamin B1) [Vitamin 100 mg PO QAM 30 Days #30 tab 09/22/19 10/06/19 Rx B-1] Allergies Allergy/AdvReac Type Severity Reaction Status Date / Time amairani Allergy Mild GUMS SWELL Verified 10/06/19 22:40 mushroom Allergy Mild GUMS SWELL Verified 10/06/19 22:40 No Known Drug Allergies Allergy Unknown Verified 10/06/19 22:40 Past Med/Surg History Medical History Alcohol withdrawal (Acute) Anemia Hypokalemia Mood disorder (Acute) Polysubstance abuse Recurrent pancreatitis (Acute) Thrombocytopenia Surgical History History of orthopedic surgery Family History Other No significant family history Social History Preferred Language: Upper Sorbian Communication Ability: Effective Squilgeer Required: No Beliefs That Will Affect Care: None Current Living Situation: Other Current Living Situation Comment: roommate Feels Safe at Home: Yes Safety Concerns: Feels Safe At This Time Smoking Status: Current every day smoker Tobacco Type: cigarettes ; Cigarettes Per Day: 4 ; Second Hand Exposure: No ; Hx Alcohol Use: Yes Alcohol type: beer, wine and hard liquor Hx Substance Use: Yes substance use type: marijuana and painkillers Last Used Substance: Hours (ago) Review of Systems A total of 10 systems reviewed and were otherwise negative Physical Exam Vital Signs Vital Signs - 24 hr 10/06/19 21:54 10/06/19 22:00 10/06/19 22:51 Temperature 36.7 C Temperature Source Oral Pulse Rate 89 83 89 Pulse Rate from SpO2 Sensor 89 Pulse Rhythm Regular Pulse Strength Normal Respiratory Rate 16 20 16 Respiratory Effort / Characteristics Non-Labored Spontaneous Respiratory Depth Normal Respiratory Pattern Regular Blood Pressure 113/81 113/81 108/73 Blood Pressure Mean 91 91 79 Blood Pressure Position Lying Pulse Oximetry 98 99 Oxygen Delivery Method Room Air Sepsis Recent Fever Within 48 Hours No Sepsis Action Taken by Nursing No Action Required 10/06/19 23:00 10/07/19 00:00 10/07/19 00:30 Temperature Temperature Source Pulse Rate 89 97 H 92 H Pulse Rate from SpO2 Sensor 89 Pulse Rhythm Pulse Strength Respiratory Rate 20 16 21 Respiratory Effort / Characteristics Respiratory Depth Respiratory Pattern Blood Pressure 102/64 110/78 101/56 L Blood Pressure Mean 71 84 65 Blood Pressure Position Pulse Oximetry 96 Oxygen Delivery Method Sepsis Recent Fever Within 48 Hours Sepsis Action Taken by Nursing 10/07/19 01:01 10/07/19 01:30 10/07/19 02:00 Temperature Temperature Source Pulse Rate 90 80 Pulse Rate from SpO2 Sensor 90 Pulse Rhythm Pulse Strength Respiratory Rate 13 21 20 Respiratory Effort / Characteristics Respiratory Depth Respiratory Pattern Blood Pressure 131/95 106/74 98/64 L Blood Pressure Mean 112 82 71 Blood Pressure Position Pulse Oximetry 98 98 96 Oxygen Delivery Method Sepsis Recent Fever Within 48 Hours Sepsis Action Taken by Nursing VITAL SIGNS - Vital signs and nursing notes were reviewed. Stable and afebrile. GENERAL -24-year-old female appearing her stated age who is screaming in pain.. Communicates well with provider and answers questions appropriately. SKIN - Without rashes. No meningeal or petechial rash. HEAD - NC/AT. EYES - PERRL with EOMI bilaterally. Sclera anicteric. Palpebral conjunctiva pink and moist with no injection noted. EARS - No deformities of external structures noted on gross examination bilaterally. NOSE - Midline and without cyanosis. No epistaxis or purulent drainage noted. MOUTH/OROPHARYNX - Without perioral cyanosis. NECK - Neck with FROM. No nuchal rigidity. LUNGS - Chest wall symmetric without accessory muscle use, intercostals retractions, or central cyanosis. Normal vesicular breath sounds CTA B/L. No wheezes, rales, or rhonchi appreciated. CARDIAC - RRR with S1/S2. No murmur, rubs, or gallops appreciated. ABDOMEN - Abdominal contour normal without pulsations or visible masses. BS normoactive all four quadrants. Epigastric abdominal tenderness to palpation. Abdomen is soft and nonrigid. No palpable masses, hepatosplenomegaly, or ascites noted. NEUROLOGIC - Cranial nerves II through XII grossly intact. PSYCH - A&O, and cooperates fully with examiner. Pt is very pleasant and interacts well with examiner. Course Administered Medications Lactated Ringer's (Lr) 1,000 mls @ 200 mls/hr IV .Q5H CHUN Stop: 10/08/19 03:59 Last Admin: 10/07/19 05:32 Dose: 200 mls/hr Documented by: [id number] Oxycodone HCl (Roxicodone Immediate Rel) 5 - 10 mg PO Q4H PRN PRN Reason: Pain Stop: 10/21/19 00:48 Last Admin: 10/07/19 06:06 Dose: 10 mg Documented by: [id number] Discontinued Medications Gabapentin (Neurontin) 1,200 mg PO TODAY@0415 CHUN Stop: 10/07/19 04:16 Last Admin: 10/07/19 05:08 Dose: 1,200 mg Documented by: [id number] Hydromorphone HCl (Dilaudid) 0.5 mg IV NOW STA Stop: 10/06/19 22:37 Last Admin: 10/06/19 22:47 Dose: 0.5 mg Documented by: [id number] Hydromorphone HCl (Dilaudid) 0.5 mg IV NOW STA Stop: 10/06/19 23:45 Last Admin: 10/06/19 23:57 Dose: 0.5 mg Documented by: [id number] Sodium Chloride (Nss 1000ml) 1,000 mls @ 999 mls/hr IV .Q1H1M CHUN Stop: 10/06/19 23:45 Last Infusion: 10/07/19 00:40 Dose: 0 mls/hr Documented by: [id number] Admin: 10/06/19 22:48 Dose: 999 mls/hr Documented by: [id number] Multivitamins 10 ml/ Thiamine HCl 100 mg/ Folic Acid 1 mg/Sodium Chloride 1,011.2 mls @ 500 mls/hr IV .Q2H2M ONE Stop: 10/07/19 02:49 Last Infusion: 10/07/19 05:33 Dose: 0 mls/hr Documented by: [id number] Admin: 10/07/19 02:09 Dose: 500 mls/hr Documented by: [id number] Famotidine (Pepcid 20mg Iv Push) 20 mg in 5 mls @ 2.5 mls/min IV NOW STA Stop: 10/07/19 04:10 Last Admin: 10/07/19 05:05 Dose: 2.5 mls/min Documented by: [id number] Ioversol (Optiray 320 100ml) 93 ml IV ONCE PRN PRN Reason: Interaction Checking Stop: 10/10/19 23:24 Last Admin: 10/06/19 23:25 Dose: 1 ml Documented by: [id number] Ketorolac Tromethamine (Toradol) 15 mg IV NOW ONE Stop: 10/07/19 02:27 Last Admin: 10/07/19 03:08 Dose: 15 mg Documented by: [id number] Ketorolac Tromethamine (Toradol) 15 mg IV NOW ONE Stop: 10/07/19 05:17 Last Admin: 10/07/19 05:29 Dose: 15 mg Documented by: [id number] Ondansetron HCl (Zofran) 4 mg IV NOW STA Stop: 10/06/19 22:37 Last Admin: 10/06/19 22:47 Dose: 4 mg Documented by: [id number] Ondansetron HCl (Zofran) 4 mg IV NOW STA Stop: 10/06/19 23:45 Last Admin: 10/06/19 23:57 Dose: 4 mg Documented by: [id number] Oxycodone HCl (Roxicodone Immediate Rel) 5 mg PO Q4H PRN PRN Reason: Pain Stop: 10/21/19 00:48 Last Admin: 10/07/19 02:08 Dose: 5 mg Documented by: [id number] Promethazine HCl (Phenergan) Confirm Administered Dose 12.5 mg IV .STK-MED ONE Stop: 10/07/19 02:06 Last Admin: 10/07/19 02:09 Dose: 12.5 mg Documented by: [id number] Medical Decision Making Laboratory Data Result diagrams: 10/07/19 04:21 10/07/19 04:21 Lab Results 10/06/19 10/06/19 10/06/19 Range/Units 22:00 22:00 22:00 WBC 6.38 (4.8-10.8) K/uL RBC 4.23 (4.2-5.4) M/uL Hgb 12.9 (12.0-16.0) g/dL Hct 38.4 (37-47) % MCV 90.8 (80-100) fL MCH 30.5 (25-34) pg MCHC 33.6 (32-36) g/dL RDW Std Deviation 54.6 H (36.4-46.3) fL RDW Coeff of Nayana 16.6 H (11.5-14.5) % Plt Count 300 (130-400) K/uL MPV 8.5 (7.4-10.4) fL Immature Gran % (Auto) 0.3 % Neut % (Auto) 40.6 % Lymph % (Auto) 46.9 % [place] % (Auto) 8.3 % Eos % (Auto) 3.4 % Baso % (Auto) 0.5 % Immature Gran # (Auto) 0.02 (0.00-0.02) K/uL Neut # (Auto) 2.59 (1.4-6.5) K/uL Lymph # (Auto) 2.99 (1.2-3.4) K/uL [place] # (Auto) 0.53 (0.11-0.59) K/uL Eos # (Auto) 0.22 (0-0.5) K/uL Baso # (Auto) 0.03 (0-0.2) K/uL Sodium 138 (136-145) mmol/L Potassium 3.5 (3.5-5.1) mmol/L Chloride 105 (98-107) mmol/L Carbon Dioxide 22 (21-32) mmol/L Anion Gap 11.0 (3-11) BUN 14 (7-18) mg/dl Creatinine 0.62 (0.6-1.2) mg/dl Est Cr Clr Drug Dosing 123.7 ml/min Est GFR ( Amer) 144.2 Est GFR (Non-Af Amer) 124.4 BUN/Creatinine Ratio 21.8 H (10-20) Glucose 99 (70-99) mg/dl Calcium 8.7 (8.5-10.1) mg/dl Magnesium 2.2 (1.8-2.4) mg/dl Total Bilirubin 0.4 (0.2-1) mg/dl AST 36 (15-37) U/L ALT 33 (12-78) U/L Alkaline Phosphatase 92 (45-117) U/L Total Protein 7.7 (6.4-8.2) gm/dl Albumin 3.7 (3.4-5.0) gm/dl Globulin 4.0 (2.5-4.0) gm/dl Albumin/Globulin Ratio 0.9 (0.9-2) Amylase 58 (25-115) U/L Lipase 519 H (73-393) U/L Urine Color Urine Appearance (Clear) Urine pH (4.5-7.5) Ur Specific [place] (1.000-1.030) Urine Protein (Negative) Urine Glucose (UA) (Negative) Urine Ketones (Negative) Urine Blood (Negative) Urine Nitrite (Negative) Urine Bilirubin (Negative) Urine Urobilinogen (Negative) Ur Leukocyte Esterase (Negative) Urine WBC (Auto) (0-5) /hpf Urine RBC (Auto) (0-4) /hpf U Hyaline Cast (Auto) (0-5) /lpf U Epithel Cells (Auto) (0-5) /lpf Urine Bacteria (Auto) (Negative) Urine Mucus (None Prsent) Urine Yeast POC Ur Test (NEG) Urine Opiates Screen Neg (Neg) Ur Methadone, Qual Neg (Neg) Urine Barbiturates Neg (Neg) Ur Phencyclidine (PCP) Neg (Neg) U Amphetamin/Meth Scrn Neg (Neg) MDMA (Ecstasy) Screen Neg (Neg) U Benzodiazepines Scrn Neg (Neg) Ur Cocaine Metabolite Neg (Neg) U Marijuana (THC) Screen Pos H (Neg) 05/23/20 05/23/20 Range/Units 22:30 22:30 WBC (4.8-10.8) K/uL RBC (4.2-5.4) M/uL Hgb (12.0-16.0) g/dL Hct (37-47) % MCV (80-100) fL MCH (25-34) pg MCHC (32-36) g/dL RDW Std Deviation (36.4-46.3) fL RDW Coeff of Nayana (11.5-14.5) % Plt Count (130-400) K/uL MPV (7.4-10.4) fL Immature Gran % (Auto) % Neut % (Auto) % Lymph % (Auto) % [place] % (Auto) % Eos % (Auto) % Baso % (Auto) % Immature Gran # (Auto) (0.00-0.02) K/uL Neut # (Auto) (1.4-6.5) K/uL Lymph # (Auto) (1.2-3.4) K/uL [place] # (Auto) (0.11-0.59) K/uL Eos # (Auto) (0-0.5) K/uL Baso # (Auto) (0-0.2) K/uL Sodium (136-145) mmol/L Potassium (3.5-5.1) mmol/L Chloride (98-107) mmol/L Carbon Dioxide (21-32) mmol/L Anion Gap (3-11) BUN (7-18) mg/dl Creatinine (0.6-1.2) mg/dl Est Cr Clr Drug Dosing ml/min Est GFR ( Amer) Est GFR (Non-Af Amer) BUN/Creatinine Ratio (10-20) Glucose (70-99) mg/dl Calcium (8.5-10.1) mg/dl Magnesium (1.8-2.4) mg/dl Total Bilirubin (0.2-1) mg/dl AST (15-37) U/L ALT (12-78) U/L Alkaline Phosphatase (45-117) U/L Total Protein (6.4-8.2) gm/dl Albumin (3.4-5.0) gm/dl Globulin (2.5-4.0) gm/dl Albumin/Globulin Ratio (0.9-2) Amylase (25-115) U/L Lipase (73-393) U/L Urine Color Yellow Urine Appearance Cloudy A (Clear) Urine pH 5.5 (4.5-7.5) Ur Specific [place] 1.009 (1.000-1.030) Urine Protein Negative (Negative) Urine Glucose (UA) Negative (Negative) Urine Ketones Negative (Negative) Urine Blood 2+ H (Negative) Urine Nitrite Negative (Negative) Urine Bilirubin Negative (Negative) Urine Urobilinogen Negative (Negative) Ur Leukocyte Esterase Negative (Negative) Urine WBC (Auto) 1-5 (0-5) /hpf Urine RBC (Auto) 5-10 H (0-4) /hpf U Hyaline Cast (Auto) 0 (0-5) /lpf U Epithel Cells (Auto) >30 H (0-5) /lpf Urine Bacteria (Auto) 2+ H (Negative) Urine Mucus Present A (None Prsent) Urine Yeast Not Reportable POC Ur Test NEG (NEG) Urine Opiates Screen (Neg) Ur Methadone, Qual (Neg) Urine Barbiturates (Neg) Ur Phencyclidine (PCP) (Neg) U Amphetamin/Meth Scrn (Neg) MDMA (Ecstasy) Screen (Neg) U Benzodiazepines Scrn (Neg) Ur Cocaine Metabolite (Neg) U Marijuana (THC) Screen (Neg) Imaging Data Radiologist's Impression: CT ABDOMEN & PELVIS With Contrast: Comparison: CT abdomen and pelvis 03/04/19. Peripancreatic fat stranding and fluid compatible with acute pancreatitis. No evidence of parenchymal necrosis. No organized peripancreatic collections. Correlate with serum lipase. Gallbladder distention. No biliary dilatation. Liver, spleen, adrenal glands, kidneys are unremarkable. Inflammatory changes of the duodenum, likely reactive to pancreatitis. No bowel obstruction. Normal appendix. Uterus and urinary bladder are unremarkable. No acute osseous findings. Radiologist: Rodrigo Dominique M.D. Study ready at 23:41 and initial results transmitted at 23:58 MDM Narrative Patient was seen and evaluated as above in room B09. Review was performed of nursing notes and vital signs. I did review pertinent previous visits and patient history. After obtaining a thorough history and physical examination the above work up was performed. She presents to us today with epigastric abdominal pain. Initially she was screaming secondary to pain. Abdominal exam reveals epigastric abdominal tenderness. Abdomen is soft and nonrigid. There is no leukocytosis. Mild anemia noted. No emergent metabolic disturbance. Urinalysis does not suggest infection. UPT negative. CT scan was obtained of the abdomen and pelvis. There is peripancreatic fat stranding of fluid compatible with acute pancreatitis. Clinically this is the concerned. She was medicated with IV fluids, antiemetics and analgesics while here in the emergency department. I discussed the case with the hospitalist. She will be admitted for further evaluation and management. Please refer to further documentation regarding her stay. In the evaluation and treatment of this patient, the following differential diagnoses were considered: ASC, OR, Pneumonia, GERD, Cholecystitis, Ascending Cholangitis, pancreatitis, Cholydocholithiasis, Bowel Obstruction, PE, Amongst Others. Impression & Plan Pancreatitis, Abdominal pain, epigastric Discharge Plan Visit Data *Final* Discharge Date/Time: 10/07/19 03:03 Chief Complaint: Abdominal Pain Stated Complaint: abd pain ED Provider: Boyd Campbell ED Midlevel Provider: Manny Siddiqui Discharge Problem: Pancreatitis, Abdominal pain, epigastric Patient Disposition: Admitted As Inpatient Condition: Good Discharge Instructions Interventions: ED Discharge Assessment Last Done: 10/07/19 03:03
[2019-10-07] MEDS: THIAMINE HCL 100 MG TAB PO SCH (08:18)
[2019-10-07] MEDS: FOLIC ACID 1 MG TAB PO SCH (08:18)
[2019-10-07] MEDS: PROMETHAZINE HCL 12.5 MG in SODIUM CHLORIDE 0.9% 50 ML IV PRN ×2 (08:35→15:15)
--- NOTE | 2019-10-07 09:32 | CT Scan Report ---
CT OF THE ABDOMEN AND PELVIS WITH CONTRAST CLINICAL HISTORY: epigastric abdominal pain, history of pancreatitis. COMPARISON STUDY: CT of the abdomen and pelvis March 04, 2019. KUB August 30, 2019. TECHNIQUE: Following IV administration of 93 mL of Optiray-320, axial images of the abdomen and pelvi s were obtained from the lung bases to the proximal femurs. Images were reviewed in the axial, sagitt al, and coronal planes. IV contrast was administered without complication. Automated exposure contro l was utilized for the study. A dose lowering technique was utilized adhering to the principles of A TORERS. CT DOSE: 270.72 mGy.cm FINDINGS: Lung bases are unremarkable. No pneumatosis, free air or portal venous gas is present. Ther e may be mild fatty infiltration of the liver. This has decreased since CT of March 04, 2019. The s pleen, adrenal glands and kidneys are normal. There is no hydronephrosis. No biliary or pancreatic du ctal dilatation is present. The gallbladder is mildly distended. Note is made of moderate infiltratio n centered on the pancreatic head and uncinate process. This extends into the right anterior pararena l space, adjacent to the duodenum. No well-defined peripancreatic fluid collection is noted. There is no evidence for pancreatic necrosis. There is no evidence for a bowel obstruction. The appendix is n ormal. Major vasculature is patent. IMPRESSION: 1. Moderate fluid and infiltration centered on the pancreatic head and uncinate process consistent wi th acute pancreatitis. 2. Mildly distended gallbladder. ACT 112: Negative or not required by law. Electronically signed by: Nathanael Jurado M.D. 10/07/2019 9:31 AM
--- NOTE | 2019-10-07 10:01 | Gastrointestinal Consultation ---
Date of Consultation October 07, 2019 Assessment & Plan (1) Alcohol abuse: (2) Pancreatitis, alcoholic, acute: Patient admitted with mild pancreatitis related to what appears to be alcohol abuse. At this point we would recommend abstinence and monitoring benzo withdrawal. Would also recommend repletion of vitamin B12 and folate as per normal protocol. We could certainly do an outpatient endoscopic ultrasound to screen for occult problem such as choledocholithiasis not seen on her other i maging studies Recommendations Continue with IV hydration Once pain-free may advance to a liquid diet and then as tolerated Consider vitamin B12 and folate replacement Consider psychiatric evaluation for polysubstance abuse Outpatient endoscopic ultrasound to be arranged in 6 to 8 weeks Please call with any questions or concerns, GI to sign off the present time History of Present Illness Reason for Consultation: Pancreatitis Requesting Physician: Rex garsia Attending Physician: Rex Garsia MD History of Present Illness This is a 24-year-old female with a history of polypsubstance abuse who presented to the emergency department via private vehicle with complaints of "abdominal pain". The patient states that she has a history of alcohol abuse and notes that she last drank this morning prior to her arrival. The patient is a poor historian as it appears she has been given pain medications in the emergency room and is very sleepy during my exam today. Allergies Allergy/AdvReac Type Severity Reaction Status Date / Time amairani Allergy Mild GUMS SWELL Verified 10/06/19 22:40 mushroom Allergy Mild GUMS SWELL Verified 10/06/19 22:40 No Known Drug Allergies Allergy Unknown Verified 10/06/19 22:40 Home Medications Home Medications Medication Instructions Recorded Confirmed Type multivitamin 1 tab PO QPM 09/24/18 10/06/19 History norgestimate-ethinyl estradiol 1 tab PO DAILY 02/01/19 10/06/19 History [Tri-Sprintec (28)] albuterol sulfate 2 puffs INH QID PRN #18 gm 03/10/19 10/06/19 Rx folic acid 1 mg PO QAM 30 Days #30 tab 09/22/19 10/06/19 Rx thiamine HCl (vitamin B1) [Vitamin 100 mg PO QAM 30 Days #30 tab 09/22/19 10/06/19 Rx B-1] Patient History Medical History Alcohol withdrawal (Acute) Anemia Hypokalemia Mood disorder (Acute) Polysubstance abuse Recurrent pancreatitis (Acute) Thrombocytopenia Surgical History History of orthopedic surgery Family History Other No significant family history Social History Preferred Language: Fijian Communication Ability: Effective 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 Required: No Beliefs That Will Affect Care: None Current Living Situation: Other Current Living Situation Comment: roommate Feels Safe at Home: Yes Safety Concerns: Feels Safe At This Time Smoking Status: Current every day smoker Tobacco Type: cigarettes ; Cigarettes Per Day: 4 ; Second Hand Exposure: No ; Hx Alcohol Use: Yes Alcohol type: beer, wine and hard liquor Hx Substance Use: Yes substance use type: marijuana and painkillers Last Used Substance: Hours (ago) Review of Systems Constitutional: no sweats and no malaise Eyes: no diplopia Ear, Nose, Mouth, Throat: no nasal discharge Respiratory: no change in sputum and no hemoptysis Cardiovascular: no chest pain with activity Gastrointestinal: + nausea; no bloating and no hematemesis Genitourinary: no urinary frequency Musculoskeletal: no radicular pain Neurologic: no falls Endocrine: no polydipsia Hematologic / Lymphatic: no coagulopathy Physical Exam Constitutional: WD/WN, vitals as above Eyes: No scleral icterus ENMT: external ear and nose normal, oropharynx normal Neck: trachea midline, no thyromegaly Respiratory: normal respiratory effort, lungs clear to auscultation Cardiovascular: RRR, no murmur, no edema Gastrointestinal (Abdomen): Inspection/Auscultation: abdomen normal to inspection; abdomen not distended Skin: no rashes, warm and dry Neurologic: no focal motor deficits Results & Data ([facility]) Vital Signs (Past 12 Hours) Vital Signs Temp Pulse Pulse Resp BP BP Pulse Ox 10/07/19 07:07 36.8 C 78 16 108/69 98 10/07/19 05:53 85 10/07/19 03:57 36.7 C 18 110/71 98 10/07/19 02:30 23 116/80 96 10/07/19 02:00 20 98/64 L 96 10/07/19 01:30 80 21 106/74 98 10/07/19 01:01 90 13 131/95 98 10/07/19 00:30 92 H 21 101/56 L 10/07/19 00:00 97 H 16 110/78 10/06/19 23:00 89 20 102/64 96 10/06/19 22:51 89 16 108/73 99 10/06/19 22:00 36.7 C 83 20 113/81 98 Laboratory Results Laboratory Results - last 24 hr 10/06/19 10/06/19 10/06/19 22:00 22:00 22:00 WBC 6.38 RBC 4.23 Hgb 12.9 Hct 38.4 MCV 90.8 MCH 30.5 MCHC 33.6 RDW Std Deviation 54.6 H RDW Coeff of Nayana 16.6 H Plt Count 300 MPV 8.5 Immature Gran % (Auto) 0.3 Neut % (Auto) 40.6 Lymph % (Auto) 46.9 [place] % (Auto) 8.3 Eos % (Auto) 3.4 Baso % (Auto) 0.5 Immature Gran # (Auto) 0.02 Neut # (Auto) 2.59 Lymph # (Auto) 2.99 [place] # (Auto) 0.53 Eos # (Auto) 0.22 Baso # (Auto) 0.03 Sodium 138 Potassium 3.5 Chloride 105 Carbon Dioxide 22 Anion Gap 11.0 BUN 14 Creatinine 0.62 Est Cr Clr Drug Dosing 123.7 Est GFR ( Amer) 144.2 Est GFR (Non-Af Amer) 124.4 BUN/Creatinine Ratio 21.8 H Glucose 99 Calcium 8.7 Magnesium 2.2 Total Bilirubin 0.4 AST 36 ALT 33 Alkaline Phosphatase 92 Total Protein 7.7 Albumin 3.7 Globulin 4.0 Albumin/Globulin Ratio 0.9 Amylase 58 Lipase 519 H Urine Color Urine Appearance Urine pH Ur Specific [place] Urine Protein Urine Glucose (UA) Urine Ketones Urine Blood Urine Nitrite Urine Bilirubin Urine Urobilinogen Ur Leukocyte Esterase Urine WBC (Auto) Urine RBC (Auto) U Hyaline Cast (Auto) U Epithel Cells (Auto) Urine Bacteria (Auto) Urine Mucus Urine Yeast POC Ur Test Urine Opiates Screen Neg Ur Methadone, Qual Neg Urine Barbiturates Neg Ur Phencyclidine (PCP) Neg U Amphetamin/Meth Scrn Neg MDMA (Ecstasy) Screen Neg U Benzodiazepines Scrn Neg Ur Cocaine Metabolite Neg U Marijuana (THC) Screen Pos H U Marijuana THC Carboxy Drug Screen Comment Ethyl Alcohol mg/dL 10/06/19 10/06/19 10/06/19 22:00 22:30 22:30 WBC RBC Hgb Hct MCV MCH MCHC RDW Std Deviation RDW Coeff of Nayana Plt Count MPV Immature Gran % (Auto) Neut % (Auto) Lymph % (Auto) [place] % (Auto) Eos % (Auto) Baso % (Auto) Immature Gran # (Auto) Neut # (Auto) Lymph # (Auto) [place] # (Auto) Eos # (Auto) Baso # (Auto) Sodium Potassium Chloride Carbon Dioxide Anion Gap BUN Creatinine Est Cr Clr Drug Dosing Est GFR ( Amer) Est GFR (Non-Af Amer) BUN/Creatinine Ratio Glucose Calcium Magnesium Total Bilirubin AST ALT Alkaline Phosphatase Total Protein Albumin Globulin Albumin/Globulin Ratio Amylase Lipase Urine Color Yellow Urine Appearance Cloudy A Urine pH 5.5 Ur Specific [place] 1.009 Urine Protein Negative Urine Glucose (UA) Negative Urine Ketones Negative Urine Blood 2+ H Urine Nitrite Negative Urine Bilirubin Negative Urine Urobilinogen Negative Ur Leukocyte Esterase Negative Urine WBC (Auto) 1-5 Urine RBC (Auto) 5-10 H U Hyaline Cast (Auto) 0 U Epithel Cells (Auto) >30 H Urine Bacteria (Auto) 2+ H Urine Mucus Present A Urine Yeast Not Reportable POC Ur Test NEG Urine Opiates Screen Ur Methadone, Qual Urine Barbiturates Ur Phencyclidine (PCP) U Amphetamin/Meth Scrn MDMA (Ecstasy) Screen U Benzodiazepines Scrn Ur Cocaine Metabolite U Marijuana (THC) Screen U Marijuana THC Carboxy Pending Drug Screen Comment Pending Ethyl Alcohol mg/dL 10/07/19 10/07/19 10/07/19 04:21 04:21 04:21 WBC 4.98 RBC 3.77 L Hgb 11.4 L Hct 34.4 L MCV 91.2 MCH 30.2 MCHC 33.1 RDW Std Deviation 54.7 H RDW Coeff of Nayana 16.6 H Plt Count 218 MPV 8.3 Immature Gran % (Auto) 0.2 Neut % (Auto) 28.8 Lymph % (Auto) 57.4 [place] % (Auto) 9.0 Eos % (Auto) 4.0 Baso % (Auto) 0.6 Immature Gran # (Auto) 0.01 Neut # (Auto) 1.43 Lymph # (Auto) 2.86 [place] # (Auto) 0.45 Eos # (Auto) 0.20 Baso # (Auto) 0.03 Sodium 142 Potassium 3.8 Chloride 111 H Carbon Dioxide 22 Anion Gap 9.0 BUN 12 Creatinine 0.58 L Est Cr Clr Drug Dosing 132.3 Est GFR ( Amer) 147.4 Est GFR (Non-Af Amer) 127.2 BUN/Creatinine Ratio 20.4 H Glucose 77 Calcium 7.7 L Magnesium Total Bilirubin 0.4 AST 29 ALT 29 Alkaline Phosphatase 75 Total Protein 6.5 Albumin 3.1 L Globulin 3.4 Albumin/Globulin Ratio 0.9 Amylase Lipase 262 Urine Color Urine Appearance Urine pH Ur Specific [place] Urine Protein Urine Glucose (UA) Urine Ketones Urine Blood Urine Nitrite Urine Bilirubin Urine Urobilinogen Ur Leukocyte Esterase Urine WBC (Auto) Urine RBC (Auto) U Hyaline Cast (Auto) U Epithel Cells (Auto) Urine Bacteria (Auto) Urine Mucus Urine Yeast POC Ur Test Urine Opiates Screen Ur Methadone, Qual Urine Barbiturates Ur Phencyclidine (PCP) U Amphetamin/Meth Scrn MDMA (Ecstasy) Screen U Benzodiazepines Scrn Ur Cocaine Metabolite U Marijuana (THC) Screen U Marijuana THC Carboxy Drug Screen Comment Ethyl Alcohol mg/dL 172.0 H 10/07/19 04:21 WBC RBC Hgb Hct MCV MCH MCHC RDW Std Deviation RDW Coeff of Nayana Plt Count MPV Immature Gran % (Auto) Neut % (Auto) Lymph % (Auto) [place] % (Auto) Eos % (Auto) Baso % (Auto) Immature Gran # (Auto) Neut # (Auto) Lymph # (Auto) [place] # (Auto) Eos # (Auto) Baso # (Auto) Sodium Cancelled Potassium Cancelled Chloride Cancelled Carbon Dioxide Cancelled Anion Gap Cancelled BUN Cancelled Creatinine Cancelled Est Cr Clr Drug Dosing Cancelled Est GFR ( Amer) Cancelled Est GFR (Non-Af Amer) Cancelled BUN/Creatinine Ratio Cancelled Glucose Cancelled Calcium Cancelled Magnesium Total Bilirubin AST ALT Alkaline Phosphatase Total Protein Albumin Globulin Albumin/Globulin Ratio Amylase Lipase Cancelled Urine Color Urine Appearance Urine pH Ur Specific [place] Urine Protein Urine Glucose (UA) Urine Ketones Urine Blood Urine Nitrite Urine Bilirubin Urine Urobilinogen Ur Leukocyte Esterase Urine WBC (Auto) Urine RBC (Auto) U Hyaline Cast (Auto) U Epithel Cells (Auto) Urine Bacteria (Auto) Urine Mucus Urine Yeast POC Ur Test Urine Opiates Screen Ur Methadone, Qual Urine Barbiturates Ur Phencyclidine (PCP) U Amphetamin/Meth Scrn MDMA (Ecstasy) Screen U Benzodiazepines Scrn Ur Cocaine Metabolite U Marijuana (THC) Screen U Marijuana THC Carboxy Drug Screen Comment Ethyl Alcohol mg/dL Diagnostic Findings CT OF THE ABDOMEN AND PELVIS WITH CONTRAST CLINICAL HISTORY: epigastric abdominal pain, history of pancreatitis. COMPARISON STUDY: CT of the abdomen and pelvis March 04, 2019. KUB August 30, 2019. TECHNIQUE: Following IV administration of 93 mL of Optiray-320, axial images of the abdomen and pelvis were obtained from the lung bases to the proximal femurs. Images were reviewed in the axial, sagittal, and coronal planes. IV contrast was administered without complication. Automated exposure control was utilized for the study. A dose lowering technique was utilized adhering to the principles of ALARA. CT DOSE: 270.72 mGy.cm FINDINGS: Lung bases are unremarkable. No pneumatosis, free air or portal venous gas is present. There may be mild fatty infiltration of the liver. This has decreased since CT of March 04, 2019. The spleen, adrenal glands and kidneys are normal. There is no hydronephrosis. No biliary or pancreatic ductal dilatation is present. The gallbladder is mildly distended. Note is made of moderate infiltration centered on the pancreatic head and uncinate process. This extends into the right anterior pararenal space, adjacent to the duodenum. No well-defined peripancreatic fluid collection is noted. There is no evidence for pancreatic necrosis. There is no evidence for a bowel obstruction. The appendix is normal. Major vasculature is patent. IMPRESSION: 1. Moderate fluid and infiltration centered on the pancreatic head and uncinate process consistent with acute pancreatitis. 2. Mildly distended gallbladder.
[2019-10-07] MEDS: GABAPENTIN 600 MG TAB PO SCH ×3 (10:31→23:17)
[2019-10-07] MEDS: KETOROLAC TROMETHAMINE 15 MG/ML VIAL IV PRN ×2 (11:23→18:43)
--- NOTE | 2019-10-07 13:43 | Ultrasound Report ---
US gallbladder CLINICAL HISTORY: r/o cholecystitis, cholelithiasis COMPARISON STUDY: Right upper quadrant ultrasound February 01, 2019. CT of the abdomen and pelvis M 2019. FINDINGS: Liver morphology is normal. 2 echogenic hepatic lesions are noted. These favor hemangiomas. There is no biliary ductal dilatation. The common bile duct measures 5 mm in caliber. The pancreas i s largely obscured on this examination. No gallstones are noted. There is no gallbladder wall thicken ing. There is no right hydronephrosis. Pericholecystic fluid is related to acute pancreatitis. IMPRESSION: 1. No gallstones. 2. Obscured pancreas due to overlying bowel gas. Trace pericholecystic fluid is likely due to acute p ancreatitis, as shown on CT. 3. 2 echogenic hepatic lesions which favor hemangiomas. ACT 112: Negative or not required by law. Electronically signed by: Nathanael Jurado M.D. 10/07/2019 1:42 PM
[2019-10-07] MEDS: HYDROmorphone INJ 0.5 MG/0.5 ML SYR IV PRN ×2 (13:47→20:23)
[2019-10-07] MEDS: LORazepam 0.5 MG/1 ML VIAL IV PRN (13:56)
[2019-10-07] MEDS: LORazepam 1 MG/2 ML VIAL IV PRN ×2 (16:20→19:20)
--- NOTE | 2019-10-07 18:58 | Hospitalist Progress Note ---
Date of Service October 07, 2019 Assessment & Plan (1) Recurrent pancreatitis: Secondary to alcohol intake History of alcohol abuse --CT chest: IMPRESSION: 1. Moderate fluid and infiltration centered on the pancreatic head and uncinate process consistent with acute pancreatitis. 2. Mildly distended gallbladder. --Gallbladder ultrasound: 1. No gallstones. 2. Obscured pancreas due to overlying bowel gas. Trace pericholecystic fluid is likely due to acute pancreatitis, as shown on CT. 3. 2 echogenic hepatic lesions which favor hemangiomas. --GI consulted Continue vigorous IV fluids, pain control, bowel rest Will need outpatient EUS --Alcohol withdrawal protocol including gabapentin taper and Ativan as needed anxiety/depression --Patient not able to take her Cymbalta that was prescribed 2 weeks ago upon discharge, according to her the prescription did not go through --Reports symptoms of depression lately but no suicidal ideations also anxiety --Consult psychiatry ongoing tobacco abuse --Counseling chronic thrombocytopenia -platelet count normal Recent right elbow and left radius fracture --Denies pain on the sites, continue outpatient follow-up DVT prophylaxis. Lovenox SC in light of estradiol use and recent hospitalizations Full code Disposition pending Admission and Anticipated Discharge Date Admission Date: October 07, 2019 Subjective Follow-up for alcoholic pancreatitis Seen with ANNETTE Urena at bedside throughout whole encounter Patient was seen sleeping but easily awakened States she feels improved compared to yesterday but still having significant epigastric pain-10 out of 10 Has a mild nausea, but no chest pain, no shortness of breath, no fevers or chills Reported some visual hallucinations to RN this morning, but denies tremors, re ports some mild anxiety Does admit to feeling depressed lately, no suicidal ideations, not able to take his Cymbalta as prescribed from last admission 2 weeks ago as prescription did not go through as per patient Denies drug use No other symptoms Review of Systems Review of Systems: All systems reviewed & are unremarkable except as noted in HPI & below Physical Exam Physical Exam: General- oriented x 3, not in distress, speaks in sentences with no effort or accessory muscle use Head- atraumatic Eyes- PERRL, EOMI, anicteric ENT- oropharynx clear Neck- supple, no JVD, no adenopathy, no thyromegaly; carotids +2/2, no bruits appreciated Lungs- clear to auscultation bilaterally, no rales/wheezes Heart- normal rate, regular rhythm; no murmur, no gallop, no rub appreciated Abdomen- normal bowel sounds, nondistended, soft, mild epigastric tenderness, no masses or hepatosplenomegaly Extremities- no pretibial edema, no calf tenderness; peripheral pulses intact Neuro- alert, oriented x 3; CN 2-12 grossly intact; motor 5/5 bilaterally ;sensation 100% on all extremities; no other gross focal neurologic deficits Skin- warm & dry Results & Data Results & Data ([facility]) Vital Signs (Past 12 Hours) Vital Signs Temp Pulse Pulse Resp BP Pulse Ox 10/07/19 16:03 105 H 10/07/19 15:25 36.9 C 103 H 18 135/84 97 10/07/19 10:02 78 10/07/19 07:07 36.8 C 78 16 108/69 98 Laboratory Results Laboratory Results - last 24 hr 10/06/19 10/06/19 10/06/19 22:00 22:00 22:00 WBC 6.38 RBC 4.23 Hgb 12.9 Hct 38.4 MCV 90.8 MCH 30.5 MCHC 33.6 RDW Std Deviation 54.6 H RDW Coeff of Nayana 16.6 H Plt Count 300 MPV 8.5 Immature Gran % (Auto) 0.3 Neut % (Auto) 40.6 Lymph % (Auto) 46.9 [place] % (Auto) 8.3 Eos % (Auto) 3.4 Baso % (Auto) 0.5 Immature Gran # (Auto) 0.02 Neut # (Auto) 2.59 Lymph # (Auto) 2.99 [place] # (Auto) 0.53 Eos # (Auto) 0.22 Baso # (Auto) 0.03 Sodium 138 Potassium 3.5 Chloride 105 Carbon Dioxide 22 Anion Gap 11.0 BUN 14 Creatinine 0.62 Est Cr Clr Drug Dosing 123.7 Est GFR ( Amer) 144.2 Est GFR (Non-Af Amer) 124.4 BUN/Creatinine Ratio 21.8 H Glucose 99 Calcium 8.7 Magnesium 2.2 Total Bilirubin 0.4 AST 36 ALT 33 Alkaline Phosphatase 92 Total Protein 7.7 Albumin 3.7 Globulin 4.0 Albumin/Globulin Ratio 0.9 Amylase 58 Lipase 519 H Urine Color Urine Appearance Urine pH Ur Specific [place] Urine Protein Urine Glucose (UA) Urine Ketones Urine Blood Urine Nitrite Urine Bilirubin Urine Urobilinogen Ur Leukocyte Esterase Urine WBC (Auto) Urine RBC (Auto) U Hyaline Cast (Auto) U Epithel Cells (Auto) Urine Bacteria (Auto) Urine Mucus Urine Yeast POC Ur Test Urine Opiates Screen Neg Ur Methadone, Qual Neg Urine Barbiturates Neg Ur Phencyclidine (PCP) Neg U Amphetamin/Meth Scrn Neg MDMA (Ecstasy) Screen Neg U Benzodiazepines Scrn Neg Ur Cocaine Metabolite Neg U Marijuana (THC) Screen Pos H U Marijuana THC Carboxy Drug Screen Comment Ethyl Alcohol mg/dL 10/06/19 10/06/19 10/06/19 22:00 22:30 22:30 WBC RBC Hgb Hct MCV MCH MCHC RDW Std Deviation RDW Coeff of Nayana Plt Count MPV Immature Gran % (Auto) Neut % (Auto) Lymph % (Auto) [place] % (Auto) Eos % (Auto) Baso % (Auto) Immature Gran # (Auto) Neut # (Auto) Lymph # (Auto) [place] # (Auto) Eos # (Auto) Baso # (Auto) Sodium Potassium Chloride Carbon Dioxide Anion Gap BUN Creatinine Est Cr Clr Drug Dosing Est GFR ( Amer) Est GFR (Non-Af Amer) BUN/Creatinine Ratio Glucose Calcium Magnesium Total Bilirubin AST ALT Alkaline Phosphatase Total Protein Albumin Globulin Albumin/Globulin Ratio Amylase Lipase Urine Color Yellow Urine Appearance Cloudy A Urine pH 5.5 Ur Specific [place] 1.009 Urine Protein Negative Urine Glucose (UA) Negative Urine Ketones Negative Urine Blood 2+ H Urine Nitrite Negative Urine Bilirubin Negative Urine Urobilinogen Negative Ur Leukocyte Esterase Negative Urine WBC (Auto) 1-5 Urine RBC (Auto) 5-10 H U Hyaline Cast (Auto) 0 U Epithel Cells (Auto) >30 H Urine Bacteria (Auto) 2+ H Urine Mucus Present A Urine Yeast Not Reportable POC Ur Test NEG Urine Opiates Screen Ur Methadone, Qual Urine Barbiturates Ur Phencyclidine (PCP) U Amphetamin/Meth Scrn MDMA (Ecstasy) Screen U Benzodiazepines Scrn Ur Cocaine Metabolite U Marijuana (THC) Screen U Marijuana THC Carboxy Pending Drug Screen Comment Pending Ethyl Alcohol mg/dL 10/07/19 10/07/19 10/07/19 04:21 04:21 04:21 WBC 4.98 RBC 3.77 L Hgb 11.4 L Hct 34.4 L MCV 91.2 MCH 30.2 MCHC 33.1 RDW Std Deviation 54.7 H RDW Coeff of Nayana 16.6 H Plt Count 218 MPV 8.3 Immature Gran % (Auto) 0.2 Neut % (Auto) 28.8 Lymph % (Auto) 57.4 [place] % (Auto) 9.0 Eos % (Auto) 4.0 Baso % (Auto) 0.6 Immature Gran # (Auto) 0.01 Neut # (Auto) 1.43 Lymph # (Auto) 2.86 [place] # (Auto) 0.45 Eos # (Auto) 0.20 Baso # (Auto) 0.03 Sodium 142 Potassium 3.8 Chloride 111 H Carbon Dioxide 22 Anion Gap 9.0 BUN 12 Creatinine 0.58 L Est Cr Clr Drug Dosing 132.3 Est GFR ( Amer) 147.4 Est GFR (Non-Af Amer) 127.2 BUN/Creatinine Ratio 20.4 H Glucose 77 Calcium 7.7 L Magnesium Total Bilirubin 0.4 AST 29 ALT 29 Alkaline Phosphatase 75 Total Protein 6.5 Albumin 3.1 L Globulin 3.4 Albumin/Globulin Ratio 0.9 Amylase Lipase 262 Urine Color Urine Appearance Urine pH Ur Specific [place] Urine Protein Urine Glucose (UA) Urine Ketones Urine Blood Urine Nitrite Urine Bilirubin Urine Urobilinogen Ur Leukocyte Esterase Urine WBC (Auto) Urine RBC (Auto) U Hyaline Cast (Auto) U Epithel Cells (Auto) Urine Bacteria (Auto) Urine Mucus Urine Yeast POC Ur Test Urine Opiates Screen Ur Methadone, Qual Urine Barbiturates Ur Phencyclidine (PCP) U Amphetamin/Meth Scrn MDMA (Ecstasy) Screen U Benzodiazepines Scrn Ur Cocaine Metabolite U Marijuana (THC) Screen U Marijuana THC Carboxy Drug Screen Comment Ethyl Alcohol mg/dL 172.0 H 10/07/19 04:21 WBC RBC Hgb Hct MCV MCH MCHC RDW Std Deviation RDW Coeff of Nayana Plt Count MPV Immature Gran % (Auto) Neut % (Auto) Lymph % (Auto) [place] % (Auto) Eos % (Auto) Baso % (Auto) Immature Gran # (Auto) Neut # (Auto) Lymph # (Auto) [place] # (Auto) Eos # (Auto) Baso # (Auto) Sodium Cancelled Potassium Cancelled Chloride Cancelled Carbon Dioxide Cancelled Anion Gap Cancelled BUN Cancelled Creatinine Cancelled Est Cr Clr Drug Dosing Cancelled Est GFR ( Amer) Cancelled Est GFR (Non-Af Amer) Cancelled BUN/Creatinine Ratio Cancelled Glucose Cancelled Calcium Cancelled Magnesium Total Bilirubin AST ALT Alkaline Phosphatase Total Protein Albumin Globulin Albumin/Globulin Ratio Amylase Lipase Cancelled Urine Color Urine Appearance Urine pH Ur Specific [place] Urine Protein Urine Glucose (UA) Urine Ketones Urine Blood Urine Nitrite Urine Bilirubin Urine Urobilinogen Ur Leukocyte Esterase Urine WBC (Auto) Urine RBC (Auto) U Hyaline Cast (Auto) U Epithel Cells (Auto) Urine Bacteria (Auto) Urine Mucus Urine Yeast POC Ur Test Urine Opiates Screen Ur Methadone, Qual Urine Barbiturates Ur Phencyclidine (PCP) U Amphetamin/Meth Scrn MDMA (Ecstasy) Screen U Benzodiazepines Scrn Ur Cocaine Metabolite U Marijuana (THC) Screen U Marijuana THC Carboxy Drug Screen Comment Ethyl Alcohol mg/dL
[2019-10-07] MEDS: MULTIVITAMIN TAB PO SCH (20:23)
[2019-10-07] MEDS: LORazepam 2 MG/4 ML VIAL IV PRN (21:49)
[2019-10-08] MEDS: LACTATED RINGER'S 1,000 ML IV SCH ×2 (01:01→14:25)
[2019-10-08] MEDS: PROMETHAZINE HCL 12.5 MG in SODIUM CHLORIDE 0.9% 50 ML IV PRN (01:16)
[2019-10-08] MEDS: KETOROLAC TROMETHAMINE 15 MG/ML VIAL IV PRN ×4 (01:37→20:13)
[2019-10-08] MEDS: HYDROmorphone INJ 0.5 MG/0.5 ML SYR IV PRN ×4 (02:20→21:35)
[2019-10-08] MEDS: OXYCODONE HCL IR 5 MG TAB (IMMEDIATE RELEASE) PO PRN ×3 (04:08→16:58)
[2019-10-08] MEDS: LORazepam 0.5 MG/1 ML VIAL IV PRN ×2 (04:09→10:04)
[2019-10-08] MEDS: GABAPENTIN 600 MG TAB PO SCH ×2 (07:37→15:26)
[2019-10-08] MEDS: FOLIC ACID 1 MG TAB PO SCH (07:38)
[2019-10-08] MEDS: THIAMINE HCL 100 MG TAB PO SCH (07:38)
[2019-10-08] MEDS: LORazepam 2 MG/4 ML VIAL IV PRN ×3 (07:52→22:39)
[2019-10-08 08:10] LABS: Basophils # (auto) 0.01 K/uL (0-0.2); Basophils % (auto) 0.2 %; Eosinophils # (auto) 0.16 K/uL (0-0.5); Eosinophils % (auto) 3.1 %; Hematocrit (blood only) 33.2 % (37-47); Hemoglobin 11.1 g/dL (12.0-16.0); Lymphocytes # (auto) 1.87 K/uL (1.2-3.4); Lymphocytes % (auto) 36.4 %; Mean Corpuscular Hemoglobin 30.7 pg (25-34); Mean Corpuscular Hgb Conc 33.4 g/dL (32-36); Mean Platelet Volume 9.3 fL (7.4-10.4); Monocytes # (auto) 0.52 K/uL (0.11-0.59); Monocytes % (auto) 10.1 %; Neutrophils # (auto) 2.58 K/uL (1.4-6.5); Neutrophils % (auto) 50.2 %; Platelet Count 159 K/uL (130-400); RDW Coefficient of Variation 16.4 % (11.5-14.5); RDW Standard Deviation 55.1 fL (36.4-46.3); Red Blood Count 3.61 M/uL (4.2-5.4); White Blood Count 5.14 K/uL (4.8-10.8)
[2019-10-08] MEDS: LORazepam 1 MG/2 ML VIAL IV PRN ×4 (12:24→19:14)
[2019-10-08 12:27] LABS: Alanine Aminotransferase 26 U/L (12-78); Albumin Level 3.1 gm/dl (3.4-5.0); Aspartate Aminotransferase 37 U/L (15-37); BUN Creatinine Ratio 6.7 (10-20); Bilirubin Direct 0.2 mg/dl (0-0.2); Blood Urea Nitrogen 4 mg/dl (7-18); Carbon Dioxide 27 mmol/L (21-32); Chloride 102 mmol/L (98-107); Creatinine Clr Calc Pharmacy 147.5 ml/min; Est GFR (African American) > 150.0; Est GFR (Non-African American) 131.9; Glucose 83 mg/dl (70-99); Lipase 387 U/L (73-393); Potassium 3.3 mmol/L (3.5-5.1); Sodium 139 mmol/L (136-145)
[2019-10-08 12:37] LABS: Alkaline Phosphatase 85 U/L (45-117); Bilirubin,Total 0.7 mg/dl (0.2-1); Total Protein 6.3 gm/dl (6.4-8.2)
--- NOTE | 2019-10-08 19:35 | Hospitalist Progress Note ---
Date of Service October 08, 2019 Assessment & Plan (1) Recurrent pancreatitis: Secondary to alcohol intake History of alcohol abuse --CT chest: IMPRESSION: 1. Moderate fluid and infiltration centered on the pancreatic head and uncinate process consistent with acute pancreatitis. 2. Mildly distended gallbladder. --Gallbladder ultrasound: 1. No gallstones. 2. Obscured pancreas due to overlying bowel gas. Trace pericholecystic fluid is likely due to acute pancreatitis, as shown on CT. 3. 2 echogenic hepatic lesions which favor hemangiomas. --GI consulted Advance diet to clears today Continue IV LR, pain control Will need outpatient EUS Alcohol cessation -- alcohol withdrawal protocol including gabapentin taper and Ativan as needed No overt signs of DTs anxiety/depression --Patient not able to take her Cymbalta that was prescribed 2 weeks ago upon discharge, according to her the prescription did not go through --Reports symptoms of depression lately but no suicidal ideations also reports anxiety --Consult psychiatry ongoing tobacco abuse --Counseling chronic thrombocytopenia -platelet count normal Recent right elbow and left radius fracture --Denies pain on the sites, continue outpatient follow-up DVT prophylaxis. Lovenox SC in light of estradiol use and recent hospitalizations Full code Disposition pending We will order PT and OT evaluation Admission and Anticipated Discharge Date Admission Date: October 07, 2019 Subjective Follow-up for acute pancreatitis, secondary to alcohol Seen ANNETTE Urena at the bedside throughout whole encounter Sleeping but easily awakened States epigastric pain is still present but less than yesterday, denies nausea, fevers or chills, chest pain, shortness of breath Requesting diet to be advanced today Reports anxiety, some tremors, and sweating, but no hallucinations No headache, dizziness Reports feeling depressed but no suicidal ideations, No other symptoms Review of Systems Review of Systems: All systems reviewed & are unremarkable except as noted in HPI & below Physical Exam Physical Exam: General- oriented x 3, not in distress, speaks in sentences with no effort or accessory muscle use Eyes- anicteric Neck- no JVD Lungs- clear breath sounds bilaterally, no rales/wheezes Heart- normal rate, regular rhythm; no murmurs Abdomen- normal bowel sounds, nondistended, soft, mild epigastric tenderness, no Dover sign Extremities- no pretibial edema, no calf tenderness Neuro- alert, oriented x 3; no gross focal neurologic deficits Skin- warm & dry Psych-patient tearful, reassured Results & Data Results & Data ([facility]) Vital Signs (Past 12 Hours) Vital Signs Temp Pulse Pulse Resp BP Pulse Ox 10/08/19 18:56 37.0 C 105 H 19 129/81 99 10/08/19 17:15 137 H 10/08/19 15:14 37.3 C 124 H 20 127/79 95 10/08/19 14:20 36.9 C 128 H 16 124/85 95 10/08/19 11:47 37.1 C 112 H 18 126/77 99 10/08/19 08:50 37.1 C 107 H 16 121/74 97 Laboratory Results Laboratory Results - last 24 hr 10/08/19 10/08/19 07:09 11:55 WBC 5.14 RBC 3.61 L Hgb 11.1 L Hct 33.2 L MCV 92.0 MCH 30.7 MCHC 33.4 RDW Std Deviation 55.1 H RDW Coeff of Nayana 16.4 H Plt Count 159 MPV 9.3 Immature Gran % (Auto) 0.0 Neut % (Auto) 50.2 Lymph % (Auto) 36.4 [place] % (Auto) 10.1 Eos % (Auto) 3.1 Baso % (Auto) 0.2 Immature Gran # (Auto) 0.00 Neut # (Auto) 2.58 Lymph # (Auto) 1.87 [place] # (Auto) 0.52 Eos # (Auto) 0.16 Baso # (Auto) 0.01 Sodium 139 Potassium 3.3 L Chloride 102 Carbon Dioxide 27 Anion Gap 9.0 BUN 4 L D Creatinine 0.52 L Est Cr Clr Drug Dosing 147.5 Est GFR ( Amer) > 150.0 Est GFR (Non-Af Amer) 131.9 BUN/Creatinine Ratio 6.7 L Glucose 83 Calcium 9.0 D Total Bilirubin 0.7 Direct Bilirubin 0.2 AST 37 ALT 26 Alkaline Phosphatase 85 Total Protein 6.3 L Albumin 3.1 L Lipase 387
[2019-10-08] MEDS ORDERED: POTASSIUM CHLORIDE 20 MEQ TABCR PO STA (19:37)
[2019-10-08] MEDS: ENOXAPARIN INJ 40 MG/0.4 ML SYR SQ SCH (20:13)
[2019-10-08] MEDS: MULTIVITAMIN TAB PO SCH (20:14)
[2019-10-09] MEDS: OXYCODONE HCL IR 5 MG TAB (IMMEDIATE RELEASE) PO PRN ×3 (01:32→12:09)
[2019-10-09] MEDS: LACTATED RINGER'S 1,000 ML IV SCH ×2 (01:32→13:43)
[2019-10-09] MEDS: LORazepam 1 MG/2 ML VIAL IV PRN ×5 (01:32→16:25)
[2019-10-09] MEDS: HYDROmorphone INJ 0.5 MG/0.5 ML SYR IV PRN ×4 (03:42→20:33)
[2019-10-09] MEDS: GABAPENTIN 600 MG TAB PO SCH ×2 (06:01→17:48)
[2019-10-09] MEDS: KETOROLAC TROMETHAMINE 15 MG/ML VIAL IV PRN ×3 (06:01→18:25)
[2019-10-09 07:18] LABS: Basophils # (auto) 0.01 K/uL (0-0.2); Basophils % (auto) 0.3 %; Eosinophils # (auto) 0.16 K/uL (0-0.5); Eosinophils % (auto) 4.3 %; Hematocrit (blood only) 33.2 % (37-47); Hemoglobin 10.8 g/dL (12.0-16.0); Immature Granulocytes # (auto) 0.01 K/uL (0.00-0.02); Immature Granulocytes % (auto) 0.3 %; Lymphocytes # (auto) 1.46 K/uL (1.2-3.4); Lymphocytes % (auto) 39.7 %; Mean Corpuscular Hemoglobin 30.6 pg (25-34); Mean Corpuscular Hgb Conc 32.5 g/dL (32-36); Mean Corpuscular Volume 94.1 fL (80-100); Monocytes # (auto) 0.36 K/uL (0.11-0.59); Monocytes % (auto) 9.8 %; Neutrophils # (auto) 1.68 K/uL (1.4-6.5); Neutrophils % (auto) 45.6 %; Platelet Count 105 K/uL (130-400); RDW Coefficient of Variation 16.9 % (11.5-14.5); RDW Standard Deviation 58.3 fL (36.4-46.3); Red Blood Count 3.53 M/uL (4.2-5.4); White Blood Count 3.68 K/uL (4.8-10.8)
[2019-10-09] MEDS: FOLIC ACID 1 MG TAB PO SCH (08:10)
[2019-10-09] MEDS: THIAMINE HCL 100 MG TAB PO SCH (08:10)
[2019-10-09 09:25] LABS: BUN Creatinine Ratio 4.6 (10-20); Blood Urea Nitrogen 2 mg/dl (7-18); Calcium 9.2 mg/dl (8.5-10.1); Carbon Dioxide 25 mmol/L (21-32); Chloride 105 mmol/L (98-107); Creatinine Clr Calc Pharmacy 147.5 ml/min; Est GFR (African American) > 150.0; Est GFR (Non-African American) 131.9; Glucose 95 mg/dl (70-99); Potassium 3.7 mmol/L (3.5-5.1); Sodium 137 mmol/L (136-145)
--- NOTE | 2019-10-09 09:47 | Psychiatric Consultation ---
Date of Consultation October 09, 2019 Impression / Recommendations Impression Dr. Rochelle Ponce was directly involved in review and discussion of the patient's case and participated in medical decision making regarding treatment recommendations. RECOMMENDATIONS: 10/08 - Pt does admit to recently being prescribed duloxetine 30mg for anxiety/depression and management of chronic pain. While this does seem to be an appropriate medication choice for the patient, would advise against resuming the medication on an inpatient basis as patient has demonstrated history of medication and treatment noncompliance. Would advise patient be set up with a consistent outpatient psychiatric prescriber who can resume medications to psychiatric symptoms. - Continued medication management per primary team - recommend active observation for signs/symptoms of alcohol withdrawal, pt is on the AWSS protocol. - Will obtain ROIs and initiate referral process for outpatient psychiatrist and therapist. Pt verbalizes willingness for these services. - Pt can be referred to the [facility] with plan to establish an outpatient D&A business case analyst who can assist with treatment goals and referrals to inpatient rehab when patient is willing. She admits to desire to return to rehab, but states she needs to deal with some other stressors prior to doing this. Pt was made aware that inpatient rehab is the primary recommendation for her ongoing alcohol abuse - she declines referral at this time. - Would suggest avoidance of medications with significant abuse potential. Would advise against utilizing benzodiazepines or gabapentin in this patient given her substance abuse history. Will defer use of narcotic pain medication to primary team, but urge caution given specific history of narcotic addiction. - Pt denies SI and other acute psychiatric symptoms, no indication for inpati ent psychiatric hospitalization. Risk Factors Assessment Do You Have Access To A Gun?: No Psych History Identifying Data 24-year-old female admitted medically on 10/07/2019 after presenting to the ED with abdominal pain. Pt is being treated for alcohol withdrawal and recurrent pancreatitis. Psychiatric consultation was requested to evaluate patient for depression and anxiety. Chief Complaint "Sorry, I had horrible night terrors last night. Once that happens, I don't sleep well." History of Present Illness Zahida Ward is a 24-year-old female admitted medically on 10/07/2019 after presenting to the ED with reports of abdominal pain. Pt was admitted medically for recurrent pancreatitis and alcohol withdrawal. Psychiatric consultation was requested to evaluate patient for depression and anxiety. Pt is well-known to our service from several previous consultations, most recently on 03/08/2019. Documentation from this visit suggests that the patient was initiated on duloxetine during a recent hospitalization, but that she did not continued the medication after discharge. Pt was cooperative with psychiatric evaluation. She was observed to be sleeping rather soundly initially, but did wake after he name had been called several times. Pt admits that she has not been sleeping well due to anxiety and occasional vivid dreams/"night terrors." Pt states that presently she is feeling "wiggly", reporting she is experiencing "shakes and sweats." Pt does discuss her recent history of D&A treatment. She states that she did attend inpatient D&A rehab through [facility] in [place] from the end of 02/2019 until 05/2019. She states that this treatment was largely successful at allowing her to maintain sobriety from un-prescribed narcotic medications, which she appears rather pleased about. Pt states "I heard horror stories there, I didn't want that to become me. So I decided I was done." Pt does admit, however, that she has continued to utilize alcohol more frequently than she would like. Pt states that she consumes alcohol 4 day a week, often drinking at least a 6-pack. Pt states that since leaving rehab in 05/2019 her longest period of abstaining from alcohol was 2 weeks. Pt reports she would like to address the alcohol use in rehab, but is unable to attend presently due to various situational stressors (transferring her lease, deal with medical complications, has "two broken arms", etc.) Pt was agreeable with a referral to [facility] to explore a D&A business case analyst to assist with future treatment. We did discuss recent medications. Pt was made aware of concerns with poor medication/treatment compliance. This provider did inform the patient that it would not be recommended that psychotropic medications be resumed until patient is established with an outpatient provider whom she could work with consistently. Pt states that she had been working with Dr. Mcleod through [facility], but that the patient had decided not to continue treatment after she began abusing the gabapentin that was prescribed to her. Pt reports transportation has been a major barrier to being consistent with treatment. She is willing to return to Dr. Mcleod if she is accepted back at the office, but she would also be willing to consider providers in closer proximity to her apartment. Psychiatrically, patient denies any significant change in mood or anxiety from baseline. She continues to desire outpatient psychiatric treatment to discuss these symptoms further. Pt denies SI and states "life is beautiful, I don't want to ." Pt does admit to visual hallucinations, which she has reported in the past. Pt states that these are intermittent and "when I'm DT- ing they are much worse." As patient has not had considerable episodes of sobriety, she is not able to reliably provide information regarding the relationships between substance use and these hallucinations. Pt is willing to allow us to assist with coordinating outpatient services and denies other needs at this time. As patient did have some difficulty maintaining attention due to level of fatigue, some supplemental information was obtained from prior psychiatric consultations. Past Psychiatric History Previous Psych History: Pt does report seeing Dr. Maria Antonia Mcleod for psychiatric medication management, but was non compliant with appointments. Pt has historically denied suicide attempts or psychiatric hospitalizations. Outpatient Services: None Previous Psych Admissions: None Do You Have Access To A Gun?: No History of Previous Suicide Attempt: No Past Medication Trials: Per documentation 1. Vistaril 2. Neurontin 3. Cymbalta - prescribed during medical hospitalization, was stopped on discharge due to patient not picking up the prescription Allergies Allergy/AdvReac Type Severity Reaction Status Date / Time amairani Allergy Mild GUMS SWELL Verified 10/06/19 22:40 mushroom Allergy Mild GUMS SWELL Verified 10/06/19 22:40 No Known Drug Allergies Allergy Unknown Verified 10/06/19 22:40 Home Medications Home Medications Medication Instructions Recorded Confirmed Type multivitamin 1 tab PO QPM 09/24/18 10/06/19 History norgestimate-ethinyl estradiol 1 tab PO DAILY 02/01/19 10/06/19 History [Tri-Sprintec (28)] albuterol sulfate 2 puffs INH QID PRN #18 gm 03/10/19 10/06/19 Rx folic acid 1 mg PO QAM 30 Days #30 tab 09/22/19 10/06/19 Rx thiamine HCl (vitamin B1) [Vitamin 100 mg PO QAM 30 Days #30 tab 09/22/19 10/06/19 Rx B-1] Family History Historically, patient has no known family history of mental health conditions. Mother has reportedly abused heroin, father is reportedly an alcoholic. Historically, there has been no known family history of inpatient psychiatric hospitalizations or suicide attempts/completions. Substance Abuse History Pt has a significant substance abuse history. She reports inpatient D&A rehab from 02/2019 - 05/2019 for narcotic addiction. She denies use of narcotics outside of prescriptions as directed since she was discharged from rehab. She does, however, continue to report alcohol use 4 days per week, drinking at least one 6-pack a day. Personal History Living Arrangements: Apartment (with a male friend) Born In: [place], eventually moved to [place] with her mother Highest Grade Completed: High School Graduate Employment Status: Unemployed (has historically reported "[employer] work" as means of work) Marital Status: Single Number Of Children: None Beliefs That Will Affect Care: None History of Legal Problems: Has historically denied Psychological Trauma History Comment: Has reported witnessing the of several friends Patient History Medical History Alcohol withdrawal (Acute) Anemia Hypokalemia Mood disorder (Acute) Polysubstance abuse Recurrent pancreatitis (Acute) Thrombocytopenia Surgical History History of orthopedic surgery Family History Other No significant family history Social History Preferred Language: Mexican Communication Ability: Effective 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 Beliefs That Will Affect Care: None Current Living Situation: Other Current Living Situation Comment: roommate Feels Safe at Home: Yes Safety Concerns: Feels Safe At This Time Smoking Status: Current every day smoker Tobacco Type: cigarettes ; Cigarettes Per Day: 4 ; Second Hand Exposure: No ; Hx Alcohol Use: Yes Alcohol type: beer, wine and hard liquor Hx Substance Use: Yes substance use type: marijuana and painkillers Last Used Substance: Hours (ago) Physical Exam Psychiatric: Orientation: alert, oriented x 3 and cooperative (superficially) Apperance: appropriately dressed, + disheveled and appeared stated age female of healthy-appearing weight. Pt is appropriately dressed, wearing a hospital gown. Hair is dyed blue and blonde, is pulled back in a ponytail, but appears unkempt. Pt has multiple piercings and tattoos. Level of hygiene appears adequate. Eye Contact: + fair eye contact Motor Behavior: no abnormal motor movements (intermittently grimacing in pain) Speech: normal rate/rhythm/volume of speech Affect: + blunted affect Mood: + depressed mood and + anxious mood but states not significantly changed from baseline Thought Process: goal directed thought process and clear/coherent thought pro cess Thought Content: reality based without delusions; not paranoid, no hopelessness and no worthlessness Suicidal Thoughts: denies suicidal thoughts and denies suicidal intent Homicidal Thoughts: denies homicidal thoughts Hallucinations: + visual hallucinations ("I just saw kids run down the hallway") Pt reports recurrent visual illusions/hallucinations which she states are worsened by alcohol use/abuse/withdrawal. Cognition: attention grossly intact and language grossly intact Insight: + fair insight Judgement: + poor judgement Vital Signs (Past 24 Hours): Last Vital Signs Temp 36.9 C 10/09/19 07:41 Pulse 103 H 10/09/19 07:41 Resp 18 10/09/19 07:41 BP 121/83 10/09/19 07:41 Pulse Ox 96 10/09/19 07:41 Review of Systems Constitutional: reports "shakes and sweats" Cardiovascular: denied Respiratory: denied Gastrointestinal: reports nausea/abdominal discomfort, poor appetite Neurological: denied Psychiatric: denies symptoms other than stated above Total of at least 10 systems reviewed, pertinent positives as above and in HPI. Results & Data ([facility]) Medications Administered Enoxaparin Sodium (Lovenox) 40 mg SQ HS CHUN Stop: 11/07/19 20:59 Last Admin: 10/08/19 20:13 Dose: 40 mg Documented by: [id number] Folic Acid (Folvite) 1 mg PO QAM CHUN Stop: 11/06/19 08:59 Last Admin: 10/09/19 08:10 Dose: 1 mg Documented by: [id number] Admin: 10/08/19 07:38 Dose: 1 mg Documented by: [id number] Admin: 10/07/19 08:18 Dose: 1 mg Documented by: [id number] Gabapentin (Neurontin) 600 mg PO Q12H CHUN Stop: 10/09/19 18:01 Last Admin: 10/09/19 06:01 Dose: 600 mg Documented by: [id number] Hydromorphone HCl (Dilaudid) 0.5 mg IV Q6H PRN PRN Reason: Severe Pain Stop: 10/21/19 13:35 Last Admin: 10/09/19 03:42 Dose: 0.5 mg Documented by: [id number] Admin: 10/08/19 21:35 Dose: 0.5 mg Documented by: [id number] Admin: 10/08/19 15:22 Dose: 0.5 mg Documented by: [id number] Admin: 10/08/19 08:49 Dose: 0.5 mg Documented by: [id number] Admin: 10/08/19 02:20 Dose: 0.5 mg Documented by: [id number] Admin: 10/07/19 20:23 Dose: 0.5 mg Documented by: [id number] Admin: 10/07/19 13:47 Dose: 0.5 mg Documented by: [id number] Promethazine HCl 12.5 mg/ (Sodium Chloride) 50.5 mls @ 202 mls/hr IV Q6H PRN PRN Reason: Nausea And Vomiting Stop: 11/06/19 00:48 Last Infusion: 10/08/19 01:34 Dose: 0 mls/hr Documented by: [id number] Admin: 10/08/19 01:16 Dose: 202 mls/hr Documented by: [id number] Infusion: 10/07/19 15:34 Dose: 0 mls/hr Documented by: [id number] Admin: 10/07/19 15:15 Dose: 202 mls/hr Documented by: [id number] Infusion: 10/07/19 08:50 Dose: 0 mls/hr Documented by: [id number] Admin: 10/07/19 08:35 Dose: 202 mls/hr Documented by: [id number] Lorazepam (Ativan) 1 mg in 2 mls @ 2 mls/min IV UD PRN; Protocol PRN Reason: EtOH Withdrawl AWSS Score 6,7 Stop: 11/06/19 03:56 Last Admin: 10/09/19 08:07 Dose: 2 mls/min Documented by: [id number] Admin: 10/09/19 04:11 Dose: 2 mls/min Documented by: [id number] Admin: 10/09/19 01:32 Dose: 2 mls/min Documented by: [id number] Admin: 10/08/19 19:14 Dose: 2 mls/min Documented by: [id number] Admin: 10/08/19 16:48 Dose: 2 mls/min Documented by: [id number] Admin: 10/08/19 14:26 Dose: 2 mls/min Documented by: [id number] Admin: 10/08/19 12:24 Dose: 2 mls/min Documented by: [id number] Admin: 10/07/19 19:20 Dose: 2 mls/min Documented by: [id number] Admin: 10/07/19 16:20 Dose: 2 mls/min Documented by: [id number] Lorazepam (Ativan) 2 mg in 4 mls @ 4 mls/min IV UD PRN; Protocol PRN Reason: EtOH Withdrawl AWSS Score 8,9 Stop: 11/06/19 03:56 Last Admin: 10/08/19 22:39 Dose: 4 mls/min Documented by: [id number] Admin: 10/08/19 21:31 Dose: 4 mls/min Documented by: [id number] Admin: 10/08/19 07:52 Dose: 4 mls/min Documented by: [id number] Admin: 10/07/19 21:49 Dose: 4 mls/min Documented by: [id number] Lorazepam (Ativan) 3 mg in 6 mls @ 4 mls/min IV ONCE PRN; Protocol PRN Reason: EtOH Withdrawl AWSS Score >=10 Stop: 11/06/19 03:56 Last Admin: 10/07/19 08:29 Dose: 4 mls/min Documented by: [id number] Lorazepam (Ativan) 0.5 mg in 1 mls @ 1 mls/min IV Q4H PRN PRN Reason: Anxiety Stop: 11/06/19 08:26 Last Admin: 10/08/19 10:04 Dose: 1 mls/min Documented by: [id number] Admin: 10/08/19 04:09 Dose: 1 mls/min Documented by: [id number] Admin: 10/07/19 13:56 Dose: 1 mls/min Documented by: [id number] Lactated Ringer's (Lr) 1,000 mls @ 75 mls/hr IV .[id number] CHUN Stop: 11/07/19 14:14 Last Admin: 10/09/19 01:32 Dose: 75 mls/hr Documented by: [id number] Infusion: 05/26/20 01:32 Dose: 75 mls/hr Documented by: [id number] Admin: 10/08/19 14:25 Dose: 75 mls/hr Documented by: [id number] Ketorolac Tromethamine (Toradol) 15 mg IV Q6H PRN PRN Reason: Pain Stop: 10/12/19 03:56 Last Admin: 10/09/19 06:01 Dose: 15 mg Documented by: [id number] Admin: 10/08/19 20:13 Dose: 15 mg Documented by: [id number] Admin: 10/08/19 13:59 Dose: 15 mg Documented by: [id number] Admin: 10/08/19 07:38 Dose: 15 mg Documented by: [id number] Admin: 10/08/19 01:37 Dose: 15 mg Documented by: [id number] Admin: 10/07/19 18:43 Dose: 15 mg Documented by: [id number] Admin: 10/07/19 11:23 Dose: 15 mg Documented by: [id number] Miscellaneous (Order Awaiting Action) 1 ea N/A QS CHUN Stop: 11/06/19 07:59 Last Admin: 10/09/19 08:10 Dose: Not Given Documented by: [id number] Admin: 10/09/19 00:19 Dose: Not Given Documented by: [id number] Admin: 10/08/19 15:27 Dose: Not Given Documented by: [id number] Admin: 10/08/19 07:37 Dose: Not Given Documented by: [id number] Admin: 10/07/19 23:17 Dose: Not Given Documented by: [id number] Admin: 10/07/19 15:05 Dose: Not Given Documented by: [id number] Admin: 10/07/19 08:38 Dose: Not Given Documented by: [id number] Multivitamins (Multivitamin Tab) 1 tab PO QPM CHUN Stop: 11/06/19 20:59 Last Admin: 10/08/19 20:14 Dose: 1 tab Documented by: [id number] Admin: 10/07/19 20:23 Dose: 1 tab Documented by: [id number] Oxycodone HCl (Roxicodone Immediate Rel) 5 - 10 mg PO Q4H PRN PRN Reason: Pain Stop: 10/21/19 00:48 Last Admin: 10/09/19 08:13 Dose: 10 mg Documented by: [id number] Admin: 10/09/19 01:32 Dose: 10 mg Documented by: [id number] Admin: 10/08/19 16:58 Dose: 10 mg Documented by: [id number] Admin: 10/08/19 12:00 Dose: 10 mg Documented by: [id number] Admin: 10/08/19 04:08 Dose: 10 mg Documented by: [id number] Admin: 10/07/19 22:27 Dose: 10 mg Documented by: [id number] Admin: 10/07/19 12:52 Dose: 10 mg Documented by: [id number] Admin: 10/07/19 06:06 Dose: 10 mg Documented by: [id number] Thiamine HCl (Vitamin B-1) [facility] [place] Stop: 11/06/19 08:59 Last Admin: 10/09/19 08:10 Dose: 100 mg Documented by: [id number] Admin: 10/08/19 07:38 Dose: 100 mg Documented by: [id number] Admin: 10/07/19 08:18 Dose: 100 mg Documented by: [id number] Coding Level of Care Code 98542 [facility] Intl Hosp Care Lvl 2
--- NOTE | 2019-10-09 15:33 | Hospitalist Progress Note ---
Date of Service delayed entry date of service noted below October 09, 2019 Assessment & Plan (1) Recurrent pancreatitis: Secondary to alcohol intake History of alcohol abuse --CT chest: IMPRESSION: 1. Moderate fluid and infiltration centered on the pancreatic head and uncinate process consistent with acute pancreatitis. 2. Mildly distended gallbladder. --Gallbladder ultrasound: 1. No gallstones. 2. Obscured pancreas due to overlying bowel gas. Trace pericholecystic fluid is likely due to acute pancreatitis, as shown on CT. 3. 2 echogenic hepatic lesions which favor hemangiomas. --GI consulted Advance diet to soft low fat diet Continue IV LR, pain control--> on PRN Seale, Dilaudid; pain management consulted Will need outpatient EUS counseled on Alcohol cessation -- alcohol withdrawal protocol including gabapentin taper and Ativan as needed No overt signs of DTs Anxiety/depression --Patient not able to take her Cymbalta that was prescribed 2 weeks ago upon discharge, according to her the prescription did not go through --Reports symptoms of depression lately but no suicidal ideations also reports anxiety --Consulted psychiatry Ongoing tobacco abuse --Counseling Chronic thrombocytopenia -platelet count normal Recent right elbow and left radius fracture --Denies pain on the sites will consult Ortho for follow up evaluation DVT prophylaxis. Lovenox SC in light of estradiol use and recent hospitalizations Full code Disposition pending PT and OT evaluation case discussed with patient in detail and at length all questions answered she is understanding, agreeeable, comfortable with plan of care Admission and Anticipated Discharge Date Admission Date: October 07, 2019 Subjective ff up for alcoholic pancreatitis seen with ANNETTE Bonner at bedside throughout whole encounter states she still has epigastric pain tolerating clear liquid diet, requesting diet to be advanced no nausea, fever/chills, shortness of breath states she has anxiety, no tremors, hallucinations, confusion no other symptoms called by RN as patient was upset, stating PRN pain medications does not last long enough to control her pain seen at bedside, crying explained Dilaudid will be changed to Q4h but encouraged to use PO Seale more, and wean off IV Dilaudid also discussed that pain management service will be consulted Review of Systems Review of Systems: All systems reviewed & are unremarkable except as noted in HPI & below Physical Exam Physical Exam: General- oriented x 3, not in distress, speaks in sentences with no effort or accessory muscle use Eyes- anicteric Neck- no JVD Lungs- clear BS BL Heart- normal rate, regular rhythm; no murmurs Abdomen- normal bowel sounds, nondistended, soft, mild tenderness in the epigastric region Extremities- no pretibial edema, no calf tenderness Neuro- alert, oriented x 3; no gross focal neurologic deficits Skin- warm & dry Psych- denies depression and suicidal ideation reports anxiety Results & Data Results & Data ([facility]) Vital Signs (Past 12 Hours) Vital Signs Temp Pulse Pulse Resp BP Pulse Ox 10/09/19 11:31 37.0 C 104 H 18 111/71 95 10/09/19 07:41 36.9 C 103 H 18 121/83 96 10/09/19 07:23 89 Laboratory Results all noted and reviewed
[2019-10-09] MEDS: HYDROCODONE/ACETAMOPHEN 5/325MG TAB PO PRN ×2 (17:51→21:47)
[2019-10-09] MEDS: PROMETHAZINE HCL 12.5 MG in SODIUM CHLORIDE 0.9% 50 ML IV PRN (18:43)
[2019-10-09] MEDS: LORazepam 2 MG/4 ML VIAL IV PRN ×2 (19:52→23:58)
[2019-10-09] MEDS: MULTIVITAMIN TAB PO SCH (20:34)
[2019-10-09] MEDS: ENOXAPARIN INJ 40 MG/0.4 ML SYR SQ SCH (20:35)
[2019-10-10] MEDS: HYDROmorphone INJ 0.5 MG/0.5 ML SYR IV PRN ×6 (00:33→20:51)
[2019-10-10] MEDS: HYDROCODONE/ACETAMOPHEN 5/325MG TAB PO PRN ×5 (02:49→23:57)
[2019-10-10] MEDS: KETOROLAC TROMETHAMINE 15 MG/ML VIAL IV PRN (03:21)
[2019-10-10] MEDS: LORazepam 1 MG/2 ML VIAL IV PRN ×2 (04:04→20:28)
[2019-10-10] MEDS: LACTATED RINGER'S 1,000 ML IV SCH ×3 (06:30→17:52)
[2019-10-10 07:00] LABS: Hematocrit (blood only) 32.3 % (37-47); Hemoglobin 10.7 g/dL (12.0-16.0); Mean Corpuscular Hemoglobin 31.4 pg (25-34); Mean Corpuscular Hgb Conc 33.1 g/dL (32-36); Mean Corpuscular Volume 94.7 fL (80-100); RDW Coefficient of Variation 16.9 % (11.5-14.5); RDW Standard Deviation 58.5 fL (36.4-46.3); Red Blood Count 3.41 M/uL (4.2-5.4); White Blood Count 2.82 K/uL (4.8-10.8)
[2019-10-10] MEDS: FOLIC ACID 1 MG TAB PO SCH (08:21)
[2019-10-10] MEDS: THIAMINE HCL 100 MG TAB PO SCH (08:21)
[2019-10-10 08:39] LABS: Mean Platelet Volume 9.2 fL (7.4-10.4); Platelet Count 96 K/uL (130-400)
--- NOTE | 2019-10-10 08:41 | Pain Management Consultation ---
Date of Consultation October 10, 2019 Assessment & Plan (1) Pancreatitis, alcoholic, acute: Present on Admission?: Yes (2) Alcohol abuse: Present on Admission?: Yes (3) Abdominal pain, epigastric: Present on Admission?: Yes (4) Anxiety disorder: * Continue with short-term utilization of IV hydromorphone 0.5 mg IV every 4 hours as written. Would recommend transitioning to p.o. hydrocodone over the next 24-48 hours * Patient was encouraged to utilize hydrocodone for as needed breakthrough pain * Patient was encouraged to continue to work with psychiatry in outpatient setting and consider inpatient rehab due to her alcoholism and poly-substance abuse. Abstinence from alcohol was reinforced. * Patient will follow-up with orthopedics regarding her ongoing left arm pain status post surgical correction and casting from distal left radial fracture * Would not recommend ongoing opiate utilization upon discharge due to significant risk of opiate misuse/abuse given her history of polysubstance abuse and alcoholism * Patient is not a candidate for interventional procedures * Thank you for allowing us to participate in the care of this patient. Please contact pain service for further input as needed. Present on Admission?: Yes History of Present Illness Reason for Consultation: Midepigastric abdominal pain Requesting Physician: Rex Garsia MD Attending Physician: Andrew Rios MD History of Present Illness Mrs. Stuart Ward is a 24-year-old white female who presented with midepigastric abdominal pain with nausea and vomiting. Patient has history of recurrent pancreatitis due to history of alcohol abuse who was reportedly sober for a few weeks and drank alcohol the night of onset of her pain complaints. Patient reports that her pain is sharp, burning and boring in characteristic r adiating through to the mid thoracic spinal region. Her pain is similar location and characteristic as it has been in the past relating to her pancreatitis. Patient has significant anxiety and is working with psychiatry but has not been followed with psychiatry in the outpatient setting on a consi stent basis. Patient indicates that her pain is ranging between a 4-9/10. Patient was recently hospitalized after she had fallen off of a shipping container with fracture of right olecranon process and left distal radius which required surgical intervention. Patient is reporting some pain with the left distal radial fracture and remains casted. She is being followed by orthopedics. Patient reports that she was not utilizing oral opiate therapy prior to admission other than some medication she was provided by her orthopedist in early September. The patient reports that IV hydromorphone is effec tive at controlling her pain upon this admission. She is not experiencing side effects of the medication. She reports moderate benefit from use of hydrocodone by mouth. Patient denies constipation. She has not had bowel movement upon this admission but denies abdominal fullness. She reports that she has not eaten much upon this admission but is hungry this morning and eating her breakfast. She denies thoracic radicular pattern to pain complaints. She reports some discomfort in the left anterior lower chest wall with deep breathing. Patient denies suprapubic pain, dysuria or hematuria. Patient has no further constitutional complaints. Plan of care discussed with Dr. Jeannie Khan. Pain Assessment Full Body Front + Back: 1. Midepigastric abdomen 2. Mid thoracic spine-midline Pain scale - at its best (0-10): 4 Pain scale - at its worst (0-10): 9 Allergies Allergy/AdvReac Type Severity Reaction Status Date / Time amairani Allergy Mild GUMS SWELL Verified 10/06/19 22:40 mushroom Allergy Mild GUMS SWELL Verified 10/06/19 22:40 No Known Drug Allergies Allergy Unknown Verified 10/06/19 22:40 Home Medications Home Medications Medication Instructions Recorded Confirmed Type multivitamin 1 tab PO QPM 09/24/18 10/06/19 History norgestimate-ethinyl estradiol 1 tab PO DAILY 02/01/19 10/06/19 History [Tri-Sprintec (28)] albuterol sulfate 2 puffs INH QID PRN #18 gm 03/10/19 10/06/19 Rx folic acid 1 mg PO QAM 30 Days #30 tab 09/22/19 10/06/19 Rx thiamine HCl (vitamin B1) [Vitamin 100 mg PO QAM 30 Days #30 tab 09/22/19 10/06/19 Rx B-1] Pain History Pain Intensity Pain scale - at its best (0-10): 4 Pain scale - at its worst (0-10): 9 Patient History Medical History Alcohol withdrawal (Acute) Anemia Hypokalemia Mood disorder (Acute) Polysubstance abuse Recurrent pancreatitis (Acute) Thrombocytopenia Surgical History History of orthopedic surgery Family History Other No significant family history Social History Preferred Language: Lithuanian Communication Ability: Effective [employer] Required: No Beliefs That Will Affect Care: None Current Living Situation: Other Current Living Situation Comment: roommate Feels Safe at Home: Yes Safety Concerns: Feels Safe At This Time Smoking Status: Current every day smoker Tobacco Type: cigarettes ; Cigarettes Per Day: 4 ; Second Hand Exposure: No ; Hx Alcohol Use: Yes Alcohol type: beer, wine and hard liquor Hx Substance Use: Yes substance use type: marijuana and painkillers Last Used Substance: Hours (ago) Physical Exam Physical Exam: General: Patient sitting quietly in exam room in no acute distress. Patient eating breakfast. Speech and thought process appropriate. Patient moderately anxious and intermittently weepy throughout the visit. Cognition intact. Head: Normocephalic and atraumatic. ENT: No evidence of nasal or oral mucosal lesions. Mucous membranes are moist. Eyes: Pupils equal round reactive to light. Neck: Supple without adenopathy and full range of motion. Chest: Nontender to palpation of the costosternal junction. Patient moderately tender along the left costal margin to palpation. Nontender with AP/lateral compression of the chest wall. Abdomen: Soft and nondistended. No organomegaly. Bowel sounds active. Patient tender in the midepigastric location to palpation without rebound or guarding. No organomegaly. Back/spine: Patient moderately tender over the midline of the thoracic spine which is generalized and nonfocal. No focal tenderness to percussion. Paravertebral tenderness was appreciated. No appreciable spasm. Lower extremities: Strength 5/5 with dorsi and plantar flexion. Sensation intact. No appreciable edema. Neurologic: Cranial nerves grossly intact. Ambulatory function not witnessed. Results Diagnostic Review CT: enhanced and reports reviewed CT Findings: [facility], [place] [phone] CT Scan Report Patient: DINORA REID Date: 10/07/19 MR#: [id number]: [address] Acct ID:[id number]: Date: 1995[facility] Zip: [place] [address] Age: 24Location: 2W Sex: F Room/Bed: [facility] Att Phy: Rex Garsia, MDDiagnosis: PANCREATITIS, HX ETOH WDWAL Hilda Phy: William Mullins, MDService Date: 10/06/19 Fam Phy:Interpreting Phy: Nathanael Jurado MD Admit Phy: Richar Daniels MD Ordering Phy: Manny Siddiqui PA-C cc: ~ CT OF THE ABDOMEN AND PELVIS WITH CONTRAST CLINICAL HISTORY: epigastric abdominal pain, history of pancreatitis. COMPARISON STUDY: CT of the abdomen and pelvis March 04, 2019. KUB August 30, 2019. TECHNIQUE: Following IV administration of 93 mL of Optiray-320, axial images of the abdomen and pelvis were obtained from the lung bases to the proximal femurs. Images were reviewed in the axial, sagittal, and coronal planes. IV contrast was administered without complication. Automated exposure control was utilized for the study. A dose lowering technique was utilized adhering to the principles of ALARA. CT DOSE: 270.72 mGy.cm FINDINGS: Lung bases are unremarkable. No pneumatosis, free air or portal venous gas is present. There may be mild fatty infiltration of the liver. This has decreased since CT of March 04, 2019. The spleen, adrenal glands and kidneys are normal. There is no hydronephrosis. No biliary or pancreatic ductal dilatation is present. The gallbladder is mildly distended. Note is made of moderate infiltration centered on the pancreatic head and uncinate process. This extends into the right anterior pararenal space, adjacent to the duodenum. No well-defined peripancreatic fluid collection is noted. There is no evidence for pancreatic necrosis. There is no evidence for a bowel obstruction. The appendix is normal. Major vasculature is patent. IMPRESSION: 1. Moderate fluid and infiltration centered on the pancreatic head and uncinate process consistent with acute pancreatitis. 2. Mildly distended gallbladder. ACT 112: Negative or not required by law. Electronically signed by: Nathanael Jurado M.D. 10/07/2019 9:31 AM Dictated: 10/07/19925 Transcribed: 10/07/19925 Other Findings: [facility], [place] [phone] Ultrasound Report Patient: DINORA REID Date: 10/07/19 MR#: [id number]: [address] Acct ID:[id number]: Date: 1995City Zip: [place] [address] Age: 24Location: 2W Sex: F Room/Bed: [facility] Att Phy: Rex Garsia, COLETTEiagnosis: PANCREATITIS, HX ETOH WDWAL Hilda Phy: William Mullins MDService Date: 10/07/19 Fam Phy:Interpreting Phy: Nathanael Jurado MD Admit Phy: Richar Daniels MD Ordering Phy: Rex Garsia MD cc: ~ US gallbladder CLINICAL HISTORY: r/o cholecystitis, cholelithiasis COMPARISON STUDY: Right upper quadrant ultrasound February 01, 2019. CT of the abdomen and pelvis October 06, 2019. FINDINGS: Liver morphology is normal. 2 echogenic hepatic lesions are noted. These favor hemangiomas. There is no biliary ductal dilatation. The common bile duct measures 5 mm in caliber. The pancreas is largely obscured on this examination. No gallstones are noted. There is no gallbladder wall thickening. There is no right hydronephrosis. Pericholecystic fluid is related to acute pancreatitis. IMPRESSION: 1. No gallstones. 2. Obscured pancreas due to overlying bowel gas. Trace pericholecystic fluid is likely due to acute pancreatitis, as shown on CT. 3. 2 echogenic hepatic lesions which favor hemangiomas. ACT 112: Negative or not required by law. Electronically signed by: Nathanael Jurado M.D. 10/07/2019 1:42 PM Dictated: 10/07/19 134 Transcribed: 10/07/19 134
[2019-10-10 08:42] LABS: Eosinophils # (auto) 0.19 K/uL (0-0.5); Eosinophils % (auto) 6.7 %; Immature Granulocytes # (auto) 0.01 K/uL (0.00-0.02); Immature Granulocytes % (auto) 0.4 %; Lymphocytes # (auto) 1.33 K/uL (1.2-3.4); Lymphocytes % (auto) 47.2 %; Monocytes # (auto) 0.37 K/uL (0.11-0.59); Monocytes % (auto) 13.1 %; Neutrophils # (auto) 0.92 K/uL (1.4-6.5); Neutrophils % (auto) 32.6 %; Platelet Estimate Decreased (Normal)
[2019-10-10] MEDS: PROMETHAZINE HCL 12.5 MG in SODIUM CHLORIDE 0.9% 50 ML IV PRN ×2 (09:19→17:51)
[2019-10-10] MEDS: LORazepam 0.5 MG/1 ML VIAL IV PRN (10:59)
[2019-10-10] MEDS ORDERED: HYDROmorphone INJ 0.5 MG/0.5 ML SYR IV STA (12:43)
--- NOTE | 2019-10-10 12:52 | Hospitalist Progress Note ---
Date of Service October 10, 2019 Assessment & Plan (1) Recurrent pancreatitis: Secondary to alcohol intake History of alcohol abuse -CT chest: IMPRESSION: 1. Moderate fluid and infiltration centered on the pancreatic head and uncinate process consistent with acute pancreatitis. 2. Mildly distended gallbladder. -Gallbladder ultrasound: 1. No gallstones. 2. Obscured pancreas due to overlying bowel gas. Trace pericholecystic fluid is likely due to acute pancreatitis, as shown on CT. 3. 2 echogenic hepatic lesions which favor hemangiomas. -patient affirmed recent alcohol use as outpatient, likely this triggered the abdominal pain symptoms -on low fat diet -on PRN Smyer q 4 hr prn for pain, 0.5 mcg Dilaudid q4 hr prn for pain with additional stat dose ordered on 10/10/2019, increase lactated ringers from 60 cc/hr to 100 cc/hr, scheduled Miralax q12 hours -alcohol withdrawal protocol including gabapentin taper and Ativan as needed Anxiety/depression -Patient not able to take her Cymbalta as outpatient that was prescribed 2 weeks ago upon discharge, according to her the prescription did not go through -Reports symptoms of depression lately but no suicidal ideations also reports anxiety -on prn ativan for alcohol withdrawal protocol if needed Chronic thrombocytopenia -follow platelets and monitor neutrophils -order Lyme screening tests Recent right elbow and left radius fracture -s/p surgeries from last hospitalization -Denies pain on the sites, Orthopedics follow up Ongoing tobacco abuse -Counseling DVT prophylaxis. Lovenox SC in light of estradiol use and recent hospitalizations Full code Admission and Anticipated Discharge Date Admission Date: October 07, 2019 Subjective Patient has been having intermittent periods of emotional distress in the [facility] today. She has needed frequent prn pain medications and prn anti-emetics. when she is upset, her heart rates increases a lot. She reports of continuing to have abdominal pain. she reports being able to ambulate. she denies bowel movement in 2 to 3 days. Review of Systems Review of Systems: All systems reviewed & are unremarkable except as noted in Subjective Physical Exam Constitutional: + ill appearing Eyes: PERRL, conjunctivae normal, anicteric sclerae EOM intact bilaterally ENMT: external ear and nose normal, oropharynx normal Neck: normal visual inspection Respiratory: normal respiratory effort, lungs clear to auscultation Cardiovascular: Rate/Rhythm: + tachycardic Gastrointestinal (Abdomen): Inspection/Auscultation: abdomen normal to inspection Percussion/Palpation: abdomen soft Musculoskeletal: Head/Neck/Chest: normocephalic and head atraumatic Neurologic: PERRL, EOMI, accommodation nl, no face palsy, no dysarthria CN's II-XI intact bilaterally and moves all extremities Psychiatric: Orientation: alert and cooperative agitated Results & Data Results & Data ([facility]) Vital Signs (Past 12 Hours) Vital Signs Temp Pulse Resp BP Pulse Ox 10/10/19 12:18 36.8 C 118 H 20 142/90 H 98 10/10/19 07:45 36.6 C 94 H 18 120/83 99 10/10/19 02:43 36.6 C 107 H 18 132/86 96
[2019-10-10] MEDS: POLYETHYLENE (MIRALAX) 17 GM PACK PO SCH ×2 (13:00→20:14)
[2019-10-10] MEDS: LORazepam 2 MG/4 ML VIAL IV PRN ×2 (17:52→20:27)
[2019-10-10] MEDS ORDERED: GABAPENTIN 600 MG TAB PO SCH (18:00)
--- NOTE | 2019-10-10 18:32 | Communication Note ---
Date of Service: October 10, 2019 Asked to see patient in follow up. Pt underwent ORIF of right Olecranon fx and left distal radius fx by Dr. Mejia on 09/18/19. Pt states she saw Dr. Lorrie miller at her 2 week post op visit. A cast was placed on the left wrist/forearm and the right elbow was taken out of the splint. Sutures had been removed. The patient states that her elbow is doing fine and that she only has minimal pain with ROM. She states she is having more pain with the left wrist but that the cast feels "ok" to her. She has good ROM of the right elbow with minimal discomfort. She does not quite have full extension yet but is close. Moving the fingers of the left hand well. No overt complaints with the current cast. I've discussed the case with Dr. Mejia. Continue current tx with cast on the left wrist. ROM as tolerated with the right elbow. Follow up with Dr. Mejia at the next appointment time. Dr. Cramer has seen the patient in rounding as well today.
[2019-10-10] MEDS: ENOXAPARIN INJ 40 MG/0.4 ML SYR SQ SCH (20:13)
[2019-10-10] MEDS: MULTIVITAMIN TAB PO SCH (20:14)
[2019-10-11] MEDS ORDERED: SIMETHICONE 80 MG CHEW PO PRN ×2 (00:26→00:27)
[2019-10-11 00:30] LABS: Marijuana Quant, GCMS Urine 177 ng/mL (<5)
[2019-10-11] MEDS: LORazepam 1 MG/2 ML VIAL IV PRN ×2 (00:31→23:44)
[2019-10-11] MEDS: HYDROmorphone INJ 0.5 MG/0.5 ML SYR IV PRN ×6 (00:49→23:45)
[2019-10-11] MEDS: PROMETHAZINE HCL 12.5 MG in SODIUM CHLORIDE 0.9% 50 ML IV PRN ×3 (01:47→16:00)
[2019-10-11] MEDS: HYDROCODONE/ACETAMOPHEN 5/325MG TAB PO PRN ×3 (04:06→12:17)
[2019-10-11] MEDS: LORazepam 0.5 MG/1 ML VIAL IV PRN ×4 (04:40→20:02)
[2019-10-11 07:06] LABS: Hematocrit (blood only) 32.8 % (37-47); Hemoglobin 10.8 g/dL (12.0-16.0); Mean Corpuscular Hemoglobin 30.9 pg (25-34); Mean Corpuscular Hgb Conc 32.9 g/dL (32-36); Mean Corpuscular Volume 93.7 fL (80-100); RDW Standard Deviation 57.9 fL (36.4-46.3); White Blood Count 2.79 K/uL (4.8-10.8)
[2019-10-11 07:15] LABS: Mean Platelet Volume 9.2 fL (7.4-10.4); Platelet Count 99 K/uL (130-400)
[2019-10-11 07:27] LABS: Basophils # (auto) 0.01 K/uL (0-0.2); Basophils % (auto) 0.4 %; Eosinophils # (auto) 0.19 K/uL (0-0.5); Eosinophils % (auto) 6.8 %; Lymphocytes # (auto) 1.33 K/uL (1.2-3.4); Lymphocytes % (auto) 47.7 %; Monocytes # (auto) 0.37 K/uL (0.11-0.59); Monocytes % (auto) 13.3 %; Neutrophils # (auto) 0.89 K/uL (1.4-6.5); Neutrophils % (auto) 31.8 %
[2019-10-11 07:42] LABS: Blood Urea Nitrogen < 1 mg/dl (7-18); Calcium 8.8 mg/dl (8.5-10.1); Carbon Dioxide 24 mmol/L (21-32); Chloride 110 mmol/L (98-107); Creatinine Clr Calc Pharmacy 159.8 ml/min; Est GFR (African American) > 150.0; Est GFR (Non-African American) 135.4; Glucose 91 mg/dl (70-99); Potassium 3.6 mmol/L (3.5-5.1); Sodium 141 mmol/L (136-145)
[2019-10-11] MEDS: POLYETHYLENE (MIRALAX) 17 GM PACK PO SCH ×2 (08:19→20:02)
[2019-10-11] MEDS: THIAMINE HCL 100 MG TAB PO SCH (09:32)
[2019-10-11] MEDS: FOLIC ACID 1 MG TAB PO SCH (09:32)
--- NOTE | 2019-10-11 09:42 | Hospitalist Progress Note ---
Date of Service October 11, 2019 Assessment & Plan (1) Recurrent pancreatitis: Secondary to alcohol intake History of alcohol abuse -CT chest: IMPRESSION: 1. Moderate fluid and infiltration centered on the pancreatic head and uncinate process consistent with acute pancreatitis. 2. Mildly distended gallbladder. -Gallbladder ultrasound: 1. No gallstones. 2. Obscured pancreas due to overlying bowel gas. Trace pericholecystic fluid is likely due to acute pancreatitis, as shown on CT. 3. 2 echogenic hepatic lesions which favor hemangiomas. -patient affirmed recent alcohol use as outpatient, likely this triggered the abdominal pain symptoms -on low fat diet -on PRN Lily q 4 hr prn for pain, 0.5 mcg Dilaudid q4 hr prn for pain with additional stat dose ordered on 10/10/2019, increase lactated ringers from 60 cc/hr to 100 cc/hr, scheduled Miralax q12 hours - continue this treatment plan as of 10/11/2019 -alcohol withdrawal protocol including gabapentin taper and Ativan as needed Anxiety/depression -Patient not able to take her Cymbalta as outpatient that was prescribed 2 weeks ago upon discharge, according to her the prescription did not go through -Reports symptoms of depression lately but no suicidal ideations also reports anxiety -on prn ativan for alcohol withdrawal protocol if needed Chronic thrombocytopenia -follow platelets and monitor neutrophils -Lyme screening tests pending Recent right elbow and left radius fracture -s/p surgeries from last hospitalization -Denies pain on the sites, Orthopedics follow up as needed Ongoing tobacco abuse -Counseling DVT prophylaxis. Lovenox SC in light of estradiol use and recent hospitalizations Full code Admission and Anticipated Discharge Date Admission Date: October 07, 2019 Subjective patient continues to request q 4 hour prn pain medication for abdominal pain (epigastric pain). she has been able to make bowel movements. she agrees to continue current hospital treatment plan. she denies shortness of breath. no vomiting. she is making urine. no headache. no dizziness. Review of Systems Review of Systems: All systems reviewed & are unremarkable except as noted in Subjective Physical Exam Constitutional: + ill appearing Eyes: PERRL, conjunctivae normal, anicteric sclerae EOM intact bilaterally ENMT: external ear and nose normal, oropharynx normal Neck: normal visual inspection Respiratory: normal respiratory effort, lungs clear to auscultation Cardiovascular: Rate/Rhythm: regular rate Gastrointestinal (Abdomen): Inspection/Auscultation: abdomen normal to inspection Percussion/Palpation: abdomen soft Musculoskeletal: Head/Neck/Chest: normocephalic and head atraumatic Neurologic: PERRL, EOMI, accommodation nl, no face palsy, no dysarthria CN's II-XI intact bilaterally and moves all extremities Psychiatric: Orientation: alert and cooperative Results & Data Results & Data ([facility]) Vital Signs (Past 12 Hours) Vital Signs Temp Pulse Resp BP Pulse Ox 10/11/19 08:09 37.1 C 88 18 112/74 98 10/11/19 04:31 36.8 C 96 H 18 126/87 92 10/11/19 00:05 36.8 C 95 H 20 132/89 97 10/10/19 23:12 36.9 C 95 H 18 133/82 99
[2019-10-11] MEDS: LACTATED RINGER'S 1,000 ML IV SCH ×2 (10:38→21:28)
[2019-10-11 11:18] LABS: Lyme Ab IgG w/WB Rflx Negative (Negative)
[2019-10-11 11:19] LABS: Lyme Ab IgM w/WB Rflx Negative (Negative)
[2019-10-11] MEDS ORDERED: DiphenhydrAMINE HCL 50 MG/ML VIAL IV STA (16:17)
[2019-10-11] MEDS ORDERED: ACETAMINOPHEN 325 MG TAB PO PRN (16:42)
[2019-10-11] MEDS: OXYCODONE HCL IR 5 MG TAB (IMMEDIATE RELEASE) PO PRN ×3 (17:09→21:42)
[2019-10-11] MEDS ORDERED: LORazepam 0.25 MG/0.5 ML VIAL IV PRN (17:25)
[2019-10-11] MEDS ORDERED: IOVERSOL 100ml IV PRN (18:06)
--- NOTE | 2019-10-11 18:25 | CT Scan Report ---
CT abdomen oral and IV con CLINICAL HISTORY: Alcoholic pancreatitis. Persistent abdominal pain. COMPARISON STUDY: 10/06/2019 TECHNIQUE: The patient was scanned following administration of dilute oral contrast, and in a dynamic helical fashion during intravenous administration of 93 cc of Optiray 320. A dose lowering techniqu e was utilized adhering to the principles of ALARA. CT DOSE: 174.89 mGy.cm FINDINGS: Lower chest: The heart is normal in size and configuration, without pericardial effusion. The lung ba ses and pleural spaces are clear. Liver: The contrast-enhanced liver is normal in size, contour, and attenuation. There is no intrahepa tic biliary ductal dilatation. The hepatic veins and portal veins are patent. Gallbladder: Unremarkable. Spleen: Normal in size and attenuation. Pancreas: No pancreatic masses are visualized. There are no peripancreatic fluid collections. There i s no evidence of pancreatic necrosis. There is marked improvement in the previously identified peripa ncreatic inflammatory change. Adrenal glands: Unremarkable. Kidneys: There is symmetric renal cortical enhancement. The kidneys are normal in size without hydron ephrosis. Bowel: There is no pathologic upper abdominal bowel dilatation Peritoneum: There is no evidence for upper abdominal ascites Vasculature: The abdominal aorta is normal in course and caliber. Adenopathy: There is no evidence for upper abdominal lymphadenopathy Skeletal structures: No destructive osseous lesions are seen. IMPRESSION: 1. Marked improvement in the previously identified peripancreatic inflammatory change. No evidence of pancreatic necrosis. No peripancreatic fluid collections identified. ACT 112: Negative or not required by law. Electronically signed by: Jaime Sebastian M.D. 10/11/2019 6:24 PM
[2019-10-11] MEDS ORDERED: ONDANSETRON INJ 2 MG/ML 2 ML VIAL IV STA (20:12)
[2019-10-11] MEDS ORDERED: HYDROmorphone INJ 0.5 MG/0.5 ML SYR IV STA (20:16)
[2019-10-11] MEDS: MULTIVITAMIN TAB PO SCH (20:25)
[2019-10-11] MEDS: ENOXAPARIN INJ 40 MG/0.4 ML SYR SQ SCH (20:25)
[2019-10-12] MEDS: OXYCODONE HCL IR 5 MG TAB (IMMEDIATE RELEASE) PO PRN ×3 (02:07→20:08)
[2019-10-12] MEDS: LORazepam 0.5 MG/1 ML VIAL IV PRN ×3 (02:07→21:23)
[2019-10-12] MEDS: HYDROmorphone INJ 0.5 MG/0.5 ML SYR IV PRN ×3 (05:03→21:23)
[2019-10-12 07:10] LABS: Hematocrit (blood only) 33.3 % (37-47); Hemoglobin 10.9 g/dL (12.0-16.0); Mean Corpuscular Hemoglobin 30.9 pg (25-34); Mean Corpuscular Hgb Conc 32.7 g/dL (32-36); Mean Corpuscular Volume 94.3 fL (80-100); RDW Standard Deviation 58.2 fL (36.4-46.3); Red Blood Count 3.53 M/uL (4.2-5.4); White Blood Count 2.89 K/uL (4.8-10.8)
[2019-10-12 07:13] LABS: Mean Platelet Volume 8.9 fL (7.4-10.4); Platelet Count 98 K/uL (130-400)
[2019-10-12] MEDS ORDERED: ZOLPIDEM TARTRATE 5 MG TAB PO STA (07:51)
[2019-10-12] MEDS: POLYETHYLENE (MIRALAX) 17 GM PACK PO SCH ×2 (08:06→21:25)
[2019-10-12] MEDS: FOLIC ACID 1 MG TAB PO SCH (08:07)
[2019-10-12] MEDS: THIAMINE HCL 100 MG TAB PO SCH (08:07)
[2019-10-12] MEDS: LORazepam 1 MG/2 ML VIAL IV PRN (08:16)
[2019-10-12] MEDS: LACTATED RINGER'S 1,000 ML IV SCH (08:17)
[2019-10-12 08:27] LABS: Eosinophils # (auto) 0.19 K/uL (0-0.5); Eosinophils % (auto) 6.6 %; Immature Granulocytes # (auto) 0.01 K/uL (0.00-0.02); Immature Granulocytes % (auto) 0.3 %; Lymphocytes # (auto) 1.35 K/uL (1.2-3.4); Lymphocytes % (auto) 46.7 %; Monocytes # (auto) 0.47 K/uL (0.11-0.59); Monocytes % (auto) 16.3 %; Neutrophils # (auto) 0.87 K/uL (1.4-6.5); Neutrophils % (auto) 30.1 %
--- NOTE | 2019-10-12 14:37 | Hospitalist Progress Note ---
Date of Service October 12, 2019 Assessment & Plan (1) Recurrent pancreatitis: Secondary to alcohol intake History of alcohol abuse -admission CT imaging: Moderate fluid and infiltration centered on the pancreatic head and uncinate process consistent with acute pancreatitis. Mildly distended gallbladder. -Gallbladder ultrasound: 1. No gallstones. 2. Obscured pancreas due to overlying bowel gas. Trace pericholecystic fluid is likely due to acute pancreatitis, as shown on CT. 3. 2 echogenic hepatic lesions which favor hemangiomas. -patient affirmed recent alcohol use as outpatient, likely this triggered the abdominal pain symptoms -on low fat diet -during this stay in recent days, patient has been between asking often for pain medications or ativan, and this has been given to her to treat with abdominal pain, anxiety, and her risks of alcohol withdrawal -as of 10/12/2019: had discussed with patient that that the 10/11/2019 CT abdomen scan showing general resolution of pancreatitis and not other acute structural abdominal defects and so we should consider transitioning the pain control care towards the patient to go home (patient was given alcohol rehabilitation information by major case detective previously). stopped the IV fluids. will also at this point in time start de-escalating the dosing and frequency of narcotic pain medications and ativan. as hospitalist physician who is considered of patient's misuse of alcohol, I have no plans on discharging her with narcotic pain medica tion Anxiety/depression -Patient not able to take her Cymbalta (duloxetine 30 mg daily) as outpatient that was prescribed 2 weeks ago upon discharge, according to her the prescription did not go through -Reports symptoms of depression lately but no suicidal ideations -also reports anxiety -had been on prn ativan for alcohol withdrawal protocol if needed -again with her misuse of alcohol, I would not prescribed her ativan on outpatient setting. Chronic thrombocytopenia -patient's platelet counts and less than normal levels of neutrophils around 0.87 K/ul likely due to some bone marrow suppression from chronic alcohol use. has been afebrile -Lyme screening tests are negative Recent right elbow and left radius fracture -s/p surgeries from last hospitalization -Denies pain on the sites, Orthopedics follow up as needed Ongoing tobacco abuse -Counseling, give nicotine patch DVT prophylaxis. Lovenox [place] Admission and Anticipated Discharge Date Admission Date: October 07, 2019 Subjective Patient seen and examined earlier in AM with benign physical as documented. as of 10/12/2019: had discussed with patient that that the 10/11/2019 CT abdomen scan showing general resolution of pancreatitis and not other acute structural abdominal defects and so we should consider transitioning the care towards the patient to go home. She reported poor sleep overnight. She was given an Ambien and has been sleeping into the afternoon. Review of Systems Review of Systems: All systems reviewed & are unremarkable except as noted in Subjective Physical Exam Constitutional: cooperative Eyes: PERRL, conjunctivae normal, anicteric sclerae EOM intact bilaterally ENMT: external ear and nose normal, oropharynx normal Neck: normal visual inspection Respiratory: normal respiratory effort, lungs clear to auscultation Cardiovascular: Rate/Rhythm: regular rate Gastrointestinal (Abdomen): Inspection/Auscultation: abdomen normal to inspection Percussion/Palpation: abdomen soft Musculoskeletal: Head/Neck/Chest: normocephalic and head atraumatic Neurologic: PERRL, EOMI, accommodation nl, no face palsy, no dysarthria CN's II-XI intact bilaterally and moves all extremities Psychiatric: Orientation: alert and cooperative Results & Data Results & Data ([facility]) Vital Signs (Past 12 Hours) Vital Signs Temp Pulse Pulse Resp BP Pulse Ox 10/12/19 09:00 92 H 10/12/19 07:00 37.0 C 93 H 18 102/67 97
[2019-10-12] MEDS ORDERED: LORazepam 1 MG TAB PO STA (18:03)
[2019-10-12] MEDS ORDERED: LORazepam 1 MG TAB PO PRN (18:04)
[2019-10-12] MEDS: MULTIVITAMIN TAB PO SCH (21:26)
[2019-10-12] MEDS: ENOXAPARIN INJ 40 MG/0.4 ML SYR SQ SCH (21:27)
[2019-10-13] MEDS: OXYCODONE HCL IR 5 MG TAB (IMMEDIATE RELEASE) PO PRN ×2 (00:13→11:01)
[2019-10-13] MEDS: HYDROmorphone INJ 0.5 MG/0.5 ML SYR IV PRN ×2 (01:24→06:11)
[2019-10-13] MEDS: LORazepam 0.5 MG/1 ML VIAL IV PRN (01:39)
[2019-10-13] MEDS ORDERED: LORazepam 0.25 MG/0.5 ML VIAL IV STA (02:03)
[2019-10-13] MEDS ORDERED: TRAZODONE HCL 50 MG TAB PO ONE (02:05)
[2019-10-13] MEDS: THIAMINE HCL 100 MG TAB PO SCH (08:06)
[2019-10-13] MEDS: FOLIC ACID 1 MG TAB PO SCH (08:06)
[2019-10-13] MEDS: POLYETHYLENE (MIRALAX) 17 GM PACK PO SCH (08:06)
--- NOTE | 2019-10-13 11:27 | Hospitalist Progress Note ---
Date of Service October 13, 2019 Assessment & Plan (1) Recurrent pancreatitis: Recurrent pancreatitis Secondary to alcohol intake, History of alcohol abuse -admission CT imaging: Moderate fluid and infiltration centered on the pancreatic head and uncinate process consistent with acute pancreatitis. Mildly distended gallbladder. -Gallbladder ultrasound: 1. No gallstones. 2. Obscured pancreas due to overlying bowel gas. Trace pericholecystic fluid is likely due to acute pancreatitis, as shown on CT. 3. 2 echogenic hepatic lesions which favor hemangiomas. -patient affirmed recent alcohol use as outpatient, likely this triggered the abdominal pain symptoms -on low fat diet -during this stay in recent days, patient has been between asking often for pain medications or ativan, and this has been given to her to treat with abdominal pain, anxiety, and her risks of alcohol withdrawal -as of 10/12/2019: had discussed with patient that that the 10/11/2019 CT abdomen scan showing general resolution of pancreatitis and not other acute structural abdominal defects and so we should consider transitioning the pain control care towards the patient to go home (patient was given alcohol rehabilitation information by case picker previously). stopped the IV fluids. will also at this point in time start de-escalating the dosing and frequency of narcotic pain medications and ativan. as hospitalist physician who is considered of patient's misuse of alcohol, I have no plans on discharging her with narcotic pain medication -10/13/2019: discharge to home at request of patient Anxiety/depression -Patient not able to take her Cymbalta (duloxetine 30 mg daily) as outpatient that was prescribed 2 weeks ago upon discharge, according to her the prescription did not go through -Reports symptoms of depression lately but no suicidal ideations, also reports anxiety during hospital stay -had been on prn ativan for alcohol withdrawal protocol if needed -again with her misuse of alcohol, I would not prescribe her ativan or SSRI on outpatient setting. Chronic thrombocytopenia -patient's platelet counts and less than normal levels of neutrophils around 0.87 K/ul likely due to some bone marrow suppression from chronic alcohol use. has been afebrile -Lyme screening tests are negative History of right elbow and left radius fracture and s/p repair on previous hospitalization -s/p surgeries from last hospitalization -Denies pain of the sites, Orthopedics follow up as needed Ongoing tobacco abuse -Counseling, given nicotine patch on hospital stay. patient expressed at times during hospital stay that she will likely smoke such as marijuana when she is at home patient recommended to follow up with primary care doctor appointment October at [address] Salamanca at [address], [place] [address] Admission and Anticipated Discharge Date Admission Date: October 07, 2019 Subjective Patient wa sgiven 1 dose of IV ativan and trazadone overnight by nocturnalist. No acute events reported overnight. Patient requested to nurse today for medical doctor to discharge her. Patient appears calm. no distress. she denies cute pain. breathing on room air. Review of Systems Review of Systems: All systems reviewed & are unremarkable except as noted in Subjective Physical Exam Constitutional: cooperative Eyes: PERRL, conjunctivae normal, anicteric sclerae EOM intact bilaterally ENMT: external ear and nose normal, oropharynx normal Neck: normal visual inspection Respiratory: normal respiratory effort, lungs clear to auscultation Cardiovascular: Rate/Rhythm: regular rate Gastrointestinal (Abdomen): Inspection/Auscultation: abdomen normal to inspection Percussion/Palpation: abdomen soft Musculoskeletal: Head/Neck/Chest: normocephalic and head atraumatic Neurologic: PERRL, EOMI, accommodation nl, no face palsy, no dysarthria CN's II-XI intact bilaterally and moves all extremities Psychiatric: Orientation: alert and cooperative Results & Data Results & Data ([facility]) Vital Signs (Past 12 Hours) Vital Signs Temp Pulse Pulse Resp BP Pulse Ox 10/13/19 08:00 36.8 C 98 H 18 99/61 L 97 10/13/19 07:17 88
--- NOTE | 2019-10-13 11:29 | Discharge Summary ---
Date of Service October 13, 2019 Admission HPI Per Admitting Provider History obtained from patient and records. Medical history significant for anxiety/mood disorder, ongoing tobacco/alcohol abuse, recurrent pancreatitis, chronic thrombocytopenia. Recent confinement 3 weeks ago for closed fractures of the right olecranon process and left distal radius secondary to fall from a shipping container status post surgery. Patient recovering well at home. Last night, patient shared some alcoholic drinks with a friend after being sober for weeks. She subsequently noted achy mid abdominal pain with nausea and emesis reminiscent of pancreatitis pain. No chest pain, no S OB, no fever no chills. Intractable pain at the ER. Medical History as above Surgical History : D&C Family History : Hypertension Personal/Social history : 5 cigarettes a day, daily EtOH intake the last week, c urrently unemployed Principal Diagnosis Recurrent pancreatitis Secondary to alcohol intake, History of alcohol abuse Anxiety/depression Chronic thrombocytopenia History of right elbow and left radius fracture and s/p repair on previous hospitalization Discharge Exam Constitutional cooperative Eyes PERRL, conjunctivae normal, anicteric sclerae EOM intact bilaterally ENMT external ear and nose normal, oropharynx normal Neck normal visual inspection Respiratory normal respiratory effort, lungs clear to auscultation Cardiovascular Rate/Rhythm: regular rate Gastrointestinal (Abdomen) Inspection/Auscultation: abdomen normal to inspection Percussion/Palpation: abdomen soft Musculoskeletal Head/Neck/Chest: normocephalic and head atraumatic Neurologic PERRL, EOMI, accommodation nl, no face palsy, no dysarthria CN's II-XI intact bilaterally and moves all extremities Psychiatric Orientation: alert and cooperative Discharge Data Allergies Allergy/AdvReac Type Severity Reaction Status Date / Time amairani Allergy Mild GUMS SWELL Verified 10/06/19 22:40 mushroom Allergy Mild GUMS SWELL Verified 10/06/19 22:40 No Known Drug Allergies Allergy Unknown Verified 10/06/19 22:40 Consultations 10/07/19 00:11 ED Decision to Admit Stat 10/07/19 08:33 Consult Gastroenterology Routine 10/08/19 13:10 Consult Psychiatry Routine 10/09/19 18:29 Consult Pain Management Routine 10/10/19 03:46 Consult Orthopedic Surgery Routine Ordered Studies 10/06/19 22:37 CT abd pelvis IV con only Urgent 10/07/19 08:33 US gallbladder Routine 10/11/19 16:17 CT Abd and Pelvis [CT abdomen oral and IV con] Routine Hospital Course (1) Recurrent pancreatitis: Recurrent pancreatitis Secondary to alcohol intake, History of alcohol abuse -admission CT imaging: Moderate fluid and infiltration centered on the pancreatic head and uncinate process consistent with acute pancreatitis. Mildly distended gallbladder. -Gallbladder ultrasound: 1. No gallstones. 2. Obscured pancreas due to overlying bowel gas. Trace pericholecystic fluid is likely due to acute pancreatitis, as shown on CT. 3. 2 echogenic hepatic lesions which favor hemangiomas. -patient affirmed recent alcohol use as outpatient, likely this triggered the abdominal pain symptoms -on low fat diet -during this stay in recent days, patient has been between asking often for pain medications or ativan, and this has been given to her to treat with abdominal pain, anxiety, and her risks of alcohol withdrawal -as of 10/12/2019: had discussed with patient that that the 10/11/2019 CT abdomen scan showing general resolution of pancreatitis and not other acute structural abdominal defects and so we should consider transitioning the pain control care towards the patient to go home (patient was given alcohol rehabilitation information by case liner previously). stopped the IV fluids. will also at this point in time start de-escalating the dosing and frequency of narcotic pain medications and ativan. as hospitalist physician who is considered of patient's misuse of alcohol, I have no plans on discharging her with narcotic pain medication -10/13/2019: discharge to home at request of patient Anxiety/depression -Patient not able to take her Cymbalta (duloxetine 30 mg daily) as outpatient that was prescribed 2 weeks ago upon discharge, according to her the prescription did not go through -Reports symptoms of depression lately but no suicidal ideations, also reports anxiety during hospital stay -had been on prn ativan for alcohol withdrawal protocol if needed -again with her misuse of alcohol, I would not prescribe her ativan or SSRI on outpatient setting. Chronic thrombocytopenia -patient's platelet counts and less than normal levels of neutrophils around 0.87 K/ul likely due to some bone marrow suppression from chronic alcohol use. has been afebrile -Lyme screening tests are negative History of right elbow and left radius fracture and s/p repair on previous hospitalization -s/p surgeries from last hospitalization -Denies pain of the sites, Orthopedics follow up as needed Ongoing tobacco abuse -Counseling, given nicotine patch on hospital stay. patient expressed at times during hospital stay that she will likely smoke such as marijuana when she is at home patient recommended to follow up with primary care doctor appointment October at [address] Salamanca at [address] , [place] [address] Total Time Total Time Spent Total Time Spent (In Minutes): 40 minutes Total Time Includes: Examination of the Patient, Discharge Planning, Medication Reconciliation and Communication With Other Providers Discharge Plan Discharge Items Patient Disposition: Home - Self-Care Reason For Visit: PANCREATITIS, HX ETOH WDWAL Discharge Diagnosis: Recurrent pancreatitis Secondary to alcohol intake, History of alcohol abuse Anxiety/depression Chronic thrombocytopenia History of right elbow and left radius fracture and s/p repair on previous hospitalization Condition on Discharge: Good Activity: Resume your previous activity Non-emergency contact: Primary Care Provider Call non-emergency contact if: you have any medication questions Follow-up/Referrals: William Mullins MD [Primary Care Provider] - Diet: Low Fat Addtl Attending Provider Instructions: primary care doctor post hospital discharge appointment October at [address] Salamanca at [facility] [address] [facility] , [place] [address] Pending Studies at Discharge: No Stand-Alone Forms: [employer], Smoking Cessation Medications and DC Order Prescriptions: Continued multivitamin Tablet 1 tab PO QPM RF: 0 albuterol sulfate 90 mcg/actuation HFA aerosol inhaler 2 puffs INH QID PRN (Reason: shortness of breath or wheezing) Qty: 18 RF: 0 thiamine HCl (vitamin B1) [Vitamin B-1] 100 mg Tablet 100 mg PO QAM 30 Days Qty: 30 RF: 0 folic acid 1 mg Tablet 1 mg PO QAM 30 Days Qty: 30 RF: 0 norgestimate-ethinyl estradiol [Tri-Sprintec (28)] 0.18/0.215/0.25 mg-35 mcg (28) tablet 1 tab PO DAILY RF: 0 Discharge Orders: Discharge Order (Routine); Ordered 10/13/19 Ordered By: Andrew Rios Admission Data Admit Date/Time: 10/07/19 02:28 Attending Provider: Andrew Rios Admit Provider: Richar Daniels Primary Care Provider: William Mullins Other Providers: Richar Daniels ; Norma Alvarado Timothy H ; Cheryl Mchugh ; Earl Castillo ; Damon Leslie ; Ken Florian ; Lisa De La Rosa ; Levi Larose ; Moriah Gann ; Rochelle Ponce ; Rosaline Fitzgerald ; Sharda Mcclain ; Rayray Lynn I. ; Toña Camara ; Nata Michel ; Davina Bauman ; Ty Galicia ; Jeannie Khan ; Jaspal Frias ; Martin Wiseman ; Art Palmer ; Kandice Minor ; Apollo Cramer ; Anabelle Chaidez ; Chu Campbell ; Matt Zambrano ; Ravin Pro ; Matt Lopez ; Pablito Botello. ; Ravin Ramos ; Rayray Spain ; Danny Mcconnell ; Maximo Gregorio ; Oli Olivares ; Isael Black ; Anabelle España ; Jamir Martinez ; Cornell Mejia ; Nishi Bruno ; Jason Obregon ; Matilda Garrett Other Interventions: PSY Interdisciplinary Discharge Planning Last Done: 10/10/19 10:06
== END 2019-10-13 13:20 | disposition home or self-care (01) | DRG 439 ==
LOC: ED 21:37 → SUATTDRO 10-07 02:28 → 2W 10-07 02:28

== ENCOUNTER 2019-11-14 18:22 | Observation (INO) ==
[2019-11-14] MEDS ORDERED: FOLIC ACID 1 MG in SYRINGE 9.8 ML IV STA (19:05)
[2019-11-14] MEDS ORDERED: MoRPHine SULFATE 4 MG/ML 1 ML CARP\\VIAL IV STA ×2 (19:05→21:04)
[2019-11-14] MEDS ORDERED: ONDANSETRON INJ 2 MG/ML 2 ML VIAL IV STA ×2 (19:05→21:04)
[2019-11-14] MEDS ORDERED: THIAMINE HCL 200 MG in SODIUM CHLORIDE 0.9% 50 ML IV STA (19:05)
[2019-11-14] MEDS ORDERED: LORazepam 1 MG/2 ML VIAL IV STA ×2 (19:05→21:04)
[2019-11-14] MEDS ORDERED: SODIUM CHLORIDE 0.9% 1000ML 1,000 ML IV ONE (19:05)
[2019-11-14] MEDS ORDERED: THIAMINE HCL 100 MG/ML 2 ML VIAL ONE (19:12)
--- NOTE | 2019-11-14 19:17 | Emergency Department Note ---
Impression & Plan Pancreatitis, recurrent, Abdominal pain, Alcohol abuse, Leukopenia ED Provider Note NAME: DINORA HICKS AGE: 24 SEX: F : 1995 ARRIVES VIA: Ambulance INFORMANT: Patient, ED PROVIDER(S): Boyd Campbell MD Chief Complaint: Abdominal pain HPI: Patient does present with concern for abdominal pain. The patient does have a known history of alcoholism. The patient does complain of epigastric pain that radiates into the lower abdomen. She describes it as sharp. The patient has not taken anything prior to arrival. The patient last drank last evening. Patient states that she did have a period of sobriety but recently celebrated and thus continued to use alcohol. Patient does admit to smoking tobacco. Patient denies drug use. Patient's LMP was several weeks ago and unremarkable. Patient denies vaginal bleeding or discharge. Patient denies any recent travel or concern for COVID. ROS: See HPI for pertinent positives and negatives. A total of 10 systems were reviewed and otherwise negative. Past medical history: See below Surgical history: See below Social history: See below Physical Exam: GENERAL: Uncomfortable in appearance, mild distress. EYE EXAM: Normal conjunctiva. PERRL, no anisocoria and EOM's grossly intact w/o pain. NECK: Supple, no nuchal rigidity, no adenopathy, non-tender. No signs of meningismus. LUNGS: Clear to auscultation. Normal chest wall mechanics. HEART: NSR, no MRG. ABDOMEN: Diffuse upper abdominal pain without peritonitis, negative obturator an d psoas, no lower abdominal pain. Normo-active bowel sounds, no masses, no rebound or guarding. BACK: No CVA TTP. SKIN: No rashes and no bruising. UPPER EXTREMITIES: Upper extremities are grossly normal. LOWER EXTREMITIES: Grossly normal, no edema. NEURO EXAM: A&O x3, cranial nerves II-XII grossly intact, normal speech, moves all 4 extremities on command w/o issue. Differential diagnoses: Appendicitis, ovarian cyst, ovarian torsion, ectopic , TOA, PID, infections, diverticulitis, UTI, obstruction, mesenteric ischemia, aortic pathology, inflammatory bowel disease, renal colic, PUD, pancreatitis, biliary pathology, hernia, volvulus, constipation, as well as other pathologies. Course: Patient was seen and evaluated the bedside. Full history physical exam was performed. Imaging Studies: Radiology results as stated below per my review in the radiologist's interpretation: CT abd pelvis IV con only CT DOSE: 262.89 mGy.cm HISTORY: Pain. Pancreatitis. pain, h/o etoh/pancreatitis TECHNIQUE: Multiaxial CT images of the abdomen and pelvis were performed following the use of intravenous contrast. A dose lowering technique was utilized adhering to the principles of ALARA. COMPARISON STUDY: 10/28/2019 FINDINGS: The lung bases are clear. Diffuse fatty replacement of the liver. Pancreas is slightly bulky. This is similar as compared to the prior exam. No significant peripancreatic infiltrative changes at this time. Nonobstructive bowel pattern. Uterus is anteflexed. Her 2 cm ovarian follicular cysts bilaterally. Bladder is midline. Kidneys negative for hydronephrosis. IMPRESSION: 1. Slightly bulky appearance to the pancreas raising the possibility of residual low-grade pancreatitis. 2. This is unchanged compared to the prior study. 3. No evidence for peripancreatic infiltrative change, pseudocyst, abscess, or collection. 4. Small bilateral ovarian follicular cysts. 5. Study is otherwise negative. ACT 112: Negative or not required by law. The above report was generated using voice recognition software. It may contain grammatical, syntax or spelling errors. Electronically signed by: Matt Bentley M.D. 11/14/2019 9:01 PM Dictated: 11/14/192058 Transcribed: 11/14/192058 Cardiac monitoring: An order was placed for continuous cardiac monitoring. The monitor shows a rate of 127 with sinus tachycardia rhythm. MDM: Patient was seen due to concern for epigastric pain nausea vomiting. Blood work was obtained along with a CT of the abdomen pelvis. The patient was given IV fluids, folic acid, thiamine, pain and nausea medication as well as some Ativan given the patient's known history of alcoholism. Patient does have significant leukopenia with a low ANC. Patient's pain was only mildly improved and the patient CT the abdomen pelvis did show concern for residual low-grade pancreatitis. This may be unchanged from prior but given the patient's symptoms and patient's p.o. intolerance I did speak with the on-call hospitalist. Patient was admitted by Dr. Donaldson with [facility]. 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: No Beliefs That Will Affect Care: None marital status: Single Current Living Situation: Other Current Living Situation Comment: roomate Feels Safe at Home: Yes Smoking Status: Current every day smoker Tobacco Type: cigarettes ; Cigarettes Per Day: 20 ; Second Hand Exposure: No ; Hx Alcohol Use: Yes Alcohol type: beer Hx Substance Use: Yes substance use type: marijuana Last Used Substance: Hours (ago) Allergies Allergies Allergy/AdvReac Type Severity Reaction Status Date / Time amiarani Allergy Mild GUMS SWELL Verified 10/30/19 22:47 mushroom Allergy Mild GUMS SWELL Verified 10/30/19 22:47 Home Meds Home Medications Medication Instructions Recorded Confirmed multivitamin 1 tab PO DAILY 09/24/18 11/14/19 doxylamine succinate [Sleep Aid 25 mg PO HS PRN 11/14/19 11/14/19 (doxylamine)] melatonin 5 mg PO HS PRN 11/14/19 11/14/19 Results & Data (ED) Vital Signs Vital Signs - 24 hr 11/14/19 18:26 11/14/19 19:27 11/14/19 19:30 Temperature 37.0 C Temperature Source Oral Pulse Rate 127 H 117 H Pulse Rate [Apical] 101 H Pulse Rate from SpO2 Sensor 118 H Pulse Rhythm [Apical] Regular Respiratory Rate 20 20 12 Respiratory Effort / Characteristics Non-Labored Respiratory Depth Normal Normal Blood Pressure 131/101 H Blood Pressure [Right Arm] 121/84 Blood Pressure Mean 111 Blood Pressure Mean [Right Arm] 96 Blood Pressure Position Sitting Pulse Oximetry 96 99 99 Oxygen Delivery Method Room Air Room Air Sepsis Recent Fever Within 48 Hours No Sepsis New/Unexplained Change in Mental Status No Sepsis Action Taken by Nursing No Action Required 11/14/19 19:31 11/14/19 20:00 11/14/19 20:01 Temperature Temperature Source Pulse Rate 114 H 90 90 Pulse Rate [Apical] Pulse Rate from SpO2 Sensor 114 H 93 H 89 Pulse Rhythm [Apical] Respiratory Rate 16 20 22 Respiratory Effort / Characteristics Respiratory Depth Blood Pressure 105/82 115/80 Blood Pressure [Right Arm] Blood Pressure Mean 87 90 Blood Pressure Mean [Right Arm] Blood Pressure Position Pulse Oximetry 97 97 95 Oxygen Delivery Method Sepsis Recent Fever Within 48 Hours Sepsis New/Unexplained Change in Mental Status Sepsis Action Taken by Nursing 11/14/19 20:52 11/14/19 21:00 11/14/19 21:01 Temperature Temperature Source Pulse Rate 104 H 101 H Pulse Rate [Apical] Pulse Rate from SpO2 Sensor 100 H 103 H 100 H Pulse Rhythm [Apical] Respiratory Rate 20 22 17 Respiratory Effort / Characteristics Respiratory Depth Blood Pressure 116/76 113/72 Blood Pressure [Right Arm] Blood Pressure Mean 91 79 Blood Pressure Mean [Right Arm] Blood Pressure Position Pulse Oximetry 96 92 96 Oxygen Delivery Method Sepsis Recent Fever Within 48 Hours Sepsis New/Unexplained Change in Mental Status Sepsis Action Taken by Nursing 11/14/19 21:30 11/14/19 21:31 11/14/19 22:00 Temperature Temperature Source Pulse Rate 97 H 94 H 96 H Pulse Rate [Apical] Pulse Rate from SpO2 Sensor 96 H 94 H 97 H Pulse Rhythm [Apical] Respiratory Rate 20 20 17 Respiratory Effort / Characteristics Respiratory Depth Blood Pressure 119/73 123/84 Blood Pressure [Right Arm] Blood Pressure Mean 79 91 Blood Pressure Mean [Right Arm] Blood Pressure Position Pulse Oximetry 92 92 95 Oxygen Delivery Method Sepsis Recent Fever Within 48 Hours Sepsis New/Unexplained Change in Mental Status Sepsis Action Taken by Nursing 11/14/19 22:01 Temperature Temperature Source Pulse Rate 94 H Pulse Rate [Apical] Pulse Rate from SpO2 Sensor 96 H Pulse Rhythm [Apical] Respiratory Rate 19 Respiratory Effort / Characteristics Respiratory Depth Blood Pressure Blood Pressure [Right Arm] Blood Pressure Mean Blood Pressure Mean [Right Arm] Blood Pressure Position Pulse Oximetry 94 Oxygen Delivery Method Sepsis Recent Fever Within 48 Hours Sepsis New/Unexplained Change in Mental Status Sepsis Action Taken by [facility] Medications Current Medication List: was personally reviewed by me Laboratory Data Attestation: I reviewed the patient's lab results. Result diagrams: 11/14/19 23:02 11/14/19 19:15 Lab Results 11/14/19 11/14/19 11/14/19 Range/Units 19:15 19:15 19:15 WBC 1.89 L (4.8-10.8) K/uL RBC 4.20 (4.2-5.4) M/uL Hgb 12.9 (12.0-16.0) g/dL Hct 38.2 (37-47) % MCV 91.0 (80-100) fL MCH 30.7 (25-34) pg MCHC 33.8 (32-36) g/dL RDW Std Deviation 56.2 H (36.4-46.3) fL RDW Coeff of Nayana 16.9 H (11.5-14.5) % Plt Count 57 L (130-400) K/uL MPV 9.0 (7.4-10.4) fL Neutrophils % (Manual) 23.5 % Lymphocytes % (Manual) 64.3 % Monocytes % (Manual) 9.6 % Eosinophils % (Manual) 0.9 % Basophils % (Manual) 1.7 % Neutrophils # (Manual) 0.44 L (1.4-6.5) K/uL Total Absolute Neuts 0.44 L* (1.4-6.5) K/uL Lymphocytes # (Manual) 1.22 (1.2-3.4) K/uL Total Abs Lymphocytes 1.22 (1.2-3.4) K/uL Monocytes # (Manual) 0.18 (0.11-0.59) K/uL Eosinophils # (Manual) 0.02 (0-0.5) K/uL Basophils # (Manual) 0.03 (0-0.2) K/uL Sodium 138 (136-145) mmol/L Potassium 3.7 (3.5-5.1) mmol/L Chloride 104 (98-107) mmol/L Carbon Dioxide 22 (21-32) mmol/L Anion Gap 12.0 H (3-11) BUN 3 L (7-18) mg/dl Creatinine 0.68 (0.6-1.2) mg/dl Est Cr Clr Drug Dosing 112.8 ml/min Est GFR ( Amer) 139.9 Est GFR (Non-Af Amer) 120.7 BUN/Creatinine Ratio 3.7 L (10-20) Glucose 85 (70-99) mg/dl Calcium 9.6 (8.5-10.1) mg/dl Phosphorus 4.9 (2.5-4.9) mg/dl Magnesium 2.1 (1.8-2.4) mg/dl Total Bilirubin 0.6 (0.2-1) mg/dl AST 150 H (15-37) U/L ALT 77 (12-78) U/L Alkaline Phosphatase 88 (45-117) U/L Total Protein 8.6 H (6.4-8.2) gm/dl Albumin 4.4 (3.4-5.0) gm/dl Globulin 4.2 H (2.5-4.0) gm/dl Albumin/Globulin Ratio 1.0 (0.9-2) Lipase 69 L (73-393) U/L HCG, Qual (Negative) Ethyl Alcohol mg/dL 264.5 H (0-3) mg/dl 11/14/19 Range/Units 19:15 WBC (4.8-10.8) K/uL RBC (4.2-5.4) M/uL Hgb (12.0-16.0) g/dL Hct (37-47) % MCV (80-100) fL MCH (25-34) pg MCHC (32-36) g/dL RDW Std Deviation (36.4-46.3) fL RDW Coeff of Nayana (11.5-14.5) % Plt Count (130-400) K/uL MPV (7.4-10.4) fL Neutrophils % (Manual) % Lymphocytes % (Manual) % Monocytes % (Manual) % Eosinophils % (Manual) % Basophils % (Manual) % Neutrophils # (Manual) (1.4-6.5) K/uL Total Absolute Neuts (1.4-6.5) K/uL Lymphocytes # (Manual) (1.2-3.4) K/uL Total Abs Lymphocytes (1.2-3.4) K/uL Monocytes # (Manual) (0.11-0.59) K/uL Eosinophils # (Manual) (0-0.5) K/uL Basophils # (Manual) (0-0.2) K/uL Sodium (136-145) mmol/L Potassium (3.5-5.1) mmol/L Chloride (98-107) mmol/L Carbon Dioxide (21-32) mmol/L Anion Gap (3-11) BUN (7-18) mg/dl Creatinine (0.6-1.2) mg/dl Est Cr Clr Drug Dosing ml/min Est GFR ( Amer) Est GFR (Non-Af Amer) BUN/Creatinine Ratio (10-20) Glucose (70-99) mg/dl Calcium (8.5-10.1) mg/dl Phosphorus (2.5-4.9) mg/dl Magnesium (1.8-2.4) mg/dl Total Bilirubin (0.2-1) mg/dl AST (15-37) U/L ALT (12-78) U/L Alkaline Phosphatase (45-117) U/L Total Protein (6.4-8.2) gm/dl Albumin (3.4-5.0) gm/dl Globulin (2.5-4.0) gm/dl Albumin/Globulin Ratio (0.9-2) Lipase (73-393) U/L HCG, Qual Negative (Negative) Ethyl Alcohol mg/dL (0-3) mg/dl Administered Medications Acetaminophen (Tylenol) 325 mg PO Q6H PRN PRN Reason: Mild Pain Stop: 12/14/19 22:08 Last Admin: 11/14/19 23:03 Dose: 325 mg Documented by: [id number] Discontinued Medications Gabapentin (Neurontin) 1,200 mg PO ONE STA Stop: 11/14/19 22:50 Last Admin: 11/14/19 23:03 Dose: 1,200 mg Documented by: [id number] Sodium Chloride (Nss 1000ml) 1,000 mls @ 999 mls/hr IV .Q1H1M ONE Stop: 11/14/19 20:05 Last Infusion: 11/14/19 20:26 Dose: 0 mls/hr Documented by: [id number] Admin: 11/14/19 19:20 Dose: 999 mls/hr Documented by: [id number] Thiamine HCl 200 mg/ Sodium (Chloride) 52 mls @ 208 mls/hr IV NOW STA Stop: 11/14/19 19:19 Last Infusion: 11/14/19 19:51 Dose: 0 mls/hr Documented by: [id number] Admin: 11/14/19 19:20 Dose: 208 mls/hr Documented by: [id number] Folic Acid 1 mg/ Syringe 10 mls @ 5 mls/min IV NOW STA Stop: 11/14/19 19:06 Last Admin: 11/14/19 19:20 Dose: 5 mls/min Documented by: [id number] Lorazepam (Ativan) 1 mg in 2 mls @ 2 mls/min IV NOW STA Stop: 11/14/19 19:06 Last Admin: 11/14/19 19:21 Dose: 2 mls/min Documented by: [id number] Lorazepam (Ativan) 1 mg in 2 mls @ 2 mls/min IV NOW STA Stop: 11/14/19 21:05 Last Admin: 11/14/19 21:09 Dose: 2 mls/min Documented by: [id number] Pantoprazole Sodium 80 mg/ (Dextrose) 120 mls @ 400 mls/hr IV NOW ONE Stop: 11/14/19 23:02 Last Admin: 11/14/19 23:02 Dose: 400 mls/hr Documented by: [id number] Lactated Ringer's (Lr) 1,000 mls @ 500 mls/hr IV .Q2H ONE Stop: 11/15/19 00:23 Last Admin: 11/15/19 00:20 Dose: Not Given Documented by: [id number] Ioversol (Optiray 320 100ml) 94 ml IV ONCE PRN PRN Reason: Interaction Checking Stop: 11/18/19 20:49 Last Admin: 11/14/19 20:51 Dose: 94 ml Documented by: [id number] Morphine Sulfate (Morphine Sulfate) 4 mg IV NOW STA Stop: 11/14/19 19:06 Last Admin: 11/14/19 19:21 Dose: 4 mg Documented by: [id number] Morphine Sulfate (Morphine Sulfate) 4 mg IV NOW STA Stop: 11/14/19 21:05 Last Admin: 11/14/19 21:09 Dose: 4 mg Documented by: [id number] Ondansetron HCl (Zofran) 4 mg IV NOW STA Stop: 11/14/19 19:06 Last Admin: 11/14/19 19:21 Dose: 4 mg Documented by: [id number] Ondansetron HCl (Zofran) 4 mg IV NOW STA Stop: 11/14/19 21:05 Last Admin: 11/14/19 21:09 Dose: 4 mg Documented by: [id number] Thiamine HCl (Vitamin B-1) Confirm Administered Dose 400 mg .ROUTE .STK-MED ONE Stop: 11/14/19 19:13 Last Admin: 11/14/19 19:29 Dose: Not Given Documented by: [id number] Discharge Plan Visit Data *Final* Discharge Date/Time: 11/14/19 23:00 Chief Complaint: Alcohol Withdrawal Stated Complaint: AB PAIN, VOMITING, ED Provider: Boyd Campbell Discharge Problem: Pancreatitis, recurrent, Abdominal pain, Alcohol abuse, Leukopenia Patient Disposition: Admitted As Inpatient Discharge Instructions Interventions: ED Discharge Assessment Last Done: 11/14/19 23:00 Discharge Problem: Abdominal pain Qualifiers: Abdominal location: epigastric Qualified Code(s): R10.13 - Epigastric pain Leukopenia Qualifiers: Leukopenia type: unspecified Qualified Code(s): D72.819 - Decreased white blood cell count, unspecified
[2019-11-14 19:28] LABS: Hematocrit (blood only) 38.2 % (37-47); Hemoglobin 12.9 g/dL (12.0-16.0); Mean Corpuscular Hemoglobin 30.7 pg (25-34); Mean Corpuscular Hgb Conc 33.8 g/dL (32-36); RDW Coefficient of Variation 16.9 % (11.5-14.5); RDW Standard Deviation 56.2 fL (36.4-46.3); White Blood Count 1.89 K/uL (4.8-10.8)
[2019-11-14 19:47] LABS: Albumin Level 4.4 gm/dl (3.4-5.0); BUN Creatinine Ratio 3.7 (10-20); Calcium 9.6 mg/dl (8.5-10.1); Creatinine Clr Calc Pharmacy 112.8 ml/min; Est GFR (African American) 139.9; Est GFR (Non-African American) 120.7; Magnesium 2.1 mg/dl (1.8-2.4); Potassium 3.7 mmol/L (3.5-5.1)
[2019-11-14 19:50] LABS: Bilirubin,Total 0.6 mg/dl (0.2-1); Globulin 4.2 gm/dl (2.5-4.0); Phosphorus 4.9 mg/dl (2.5-4.9); Platelet Count 57 K/uL (130-400); Total Protein 8.6 gm/dl (6.4-8.2)
[2019-11-14 20:13] LABS: Pregnancy Test, Serum Negative (Negative)
[2019-11-14 20:26] LABS: ALC (manual) 1.22 K/uL (1.2-3.4); ANC (manual) 0.44 K/uL (1.4-6.5); Basophils # (manual) 0.03 K/uL (0-0.2); Basophils % (manual) 1.7 %; Eosinophils # (manual) 0.02 K/uL (0-0.5); Eosinophils % (manual) 0.9 %; Lymphocytes # (manual) 1.22 K/uL (1.2-3.4); Lymphocytes % (manual) 64.3 %; Monocytes # (manual) 0.18 K/uL (0.11-0.59); Monocytes % (manual) 9.6 %; Neutrophils # (manual) 0.44 K/uL (1.4-6.5); Neutrophils % (manual) 23.5 %
[2019-11-14] MEDS ORDERED: IOVERSOL 100ml IV PRN (20:50)
--- NOTE | 2019-11-14 21:03 | CT Scan Report ---
CT abd pelvis IV con only CT DOSE: 262.89 mGy.cm HISTORY: Pain. Pancreatitis. pain, h/o etoh/pancreatitis TECHNIQUE: Multiaxial CT images of the abdomen and pelvis were performed following the use of intrave nous contrast. A dose lowering technique was utilized adhering to the principles of ALARA. COMPARISON STUDY: 10/28/2019 FINDINGS: The lung bases are clear. Diffuse fatty replacement of the liver. Pancreas is slightly bulk y. This is similar as compared to the prior exam. No significant peripancreatic infiltrative changes at this time. Nonobstructive bowel pattern. Uterus is anteflexed. Her 2 cm ovarian follicular cysts bilaterally. Bladder is midline. Kidneys negative for hydronephrosis. IMPRESSION: 1. Slightly bulky appearance to the pancreas raising the possibility of residual low-grade pancreatit is. 2. This is unchanged compared to the prior study. 3. No evidence for peripancreatic infiltrative change, pseudocyst, abscess, or collection. 4. Small bilateral ovarian follicular cysts. 5. Study is otherwise negative. ACT 112: Negative or not required by law. The above report was generated using voice recognition software. It may contain grammatical, syntax or spelling errors. Electronically signed by: Matt Bentley M.D. 11/14/2019 9:01 PM
[2019-11-14] MEDS ORDERED: KETOROLAC TROMETHAMINE 15 MG/ML VIAL IV PRN (22:09)
[2019-11-14] MEDS ORDERED: ACETAMINOPHEN 325 MG TAB PO PRN (22:09)
--- NOTE | 2019-11-14 22:23 | History & Physical Report ---
Date of Service November 14, 2019 Assessment & Plan (1) Abdominal pain: Multifactorial : UGIB ddx : MWT, gastritis Recurrent alcoholic pancreatitis, recurrent admissions/ER visits for abdominal pain in the setting of repeated alcohol intake Diarrhea rule out C. difficile Alcoholic hepatitis Alcohol withdrawal anxiety/mood disorder, at baseline ongoing tobacco abuse chronic thrombocytopenia Medical telemetry IV PPI Judicious narcotic use given history of substance abuse. Serial H&H, transfuse PRBC if hemoglobin less than 7 and or for symptomatic anemia GI consult if with significant hemoglobin drop Stool C. difficile DT precautions Nicotine patch PRN DVT prophylaxis. SCDs RE UGIB Full code Text document was generated using [employer] voice recognition software. It may contain grammatical or spelling errors. Kindly contact undersigned for clarification of any documentation item in question. History of Present Illness Chief Complaint: Abdominal pain Primary Care Provider: William Mullins MD History obtained from patient and records. Medical history significant for anxiety/mood disorder, ongoing tobacco/alcohol abuse, recurrent pancreatitis, chronic thrombocytopenia. Recent confinement October 06-2023 recurrent pancreatitis. Two ER visits last month for abdominal pain. This morning patient noted achy epigastric pain followed by hematemesis. No chest pain, no S OB. Loose stools, not black/not bloody as per patient. No fever, no chills. Admits to alcohol consumption because she was celebrating on occasion. Patient complaining that she cannot stop shaking at the ER. Medical History as above Surgical History : D&C Family History : Hypertension Personal/Social history : 5 cigarettes a day, daily EtOH intake the last week, currently unemployed Allergies Allergy/AdvReac Type Severity Reaction Status Date / Time amairani Allergy Mild GUMS SWELL Verified 10/30/19 22:47 mushroom Allergy Mild GUMS SWELL Verified 10/30/19 22:47 Home Medications Home Medications Medication Instructions Recorded Confirmed Type multivitamin 1 tab PO DAILY 09/24/18 11/14/19 History doxylamine succinate [Sleep Aid 25 mg PO HS PRN 11/14/19 11/14/19 History (doxylamine)] melatonin 5 mg PO HS PRN 11/14/19 11/14/19 History Past Med/Surg History Medical History Alcohol withdrawal (Acute) Anemia Hypokalemia Mood disorder (Acute) Polysubstance abuse Recurrent pancreatitis (Acute) Thrombocytopenia (Acute) Surgical History History of orthopedic surgery Family History Other No significant family history Social History Preferred Language: Latvian Communication Ability: Effective 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 Beliefs That Will Affect Care: None marital status: Single Current Living Situation: Other Current Living Situation Comment: roomate Feels Safe at Home: Yes Smoking Status: Current every day smoker Tobacco Type: cigarettes ; Cigarettes Per Day: 20 ; Second Hand Exposure: No ; Hx Alcohol Use: Yes Alcohol type: beer Hx Substance Use: Yes substance use type: marijuana Last Used Substance: Hours (ago) Review of Systems Review of Systems: As per HPI, all 10 systems reviewed, all other ROS negative Physical Exam Physical Exam: GENERAL: uncomfortable, tremulous, no respiratory distress SKIN: Pallor, warm HEENT: Pale palpebral conjunctivae, no ptosis, dry buccal mucosa NECK : Supple, no tenderness CHEST : Decreased breath sounds , no tenderness HEART : Tachycardic , no obvious murmurs ABDOMEN: Some distention, epigastric tenderness EXTREMITIES : No LE swelling/tenderness, no other conspicuous deformities noted NEUROLOGIC : Coherent, no facial asymmetry, tremulous, no other gross focality Results & Data Results & Data ([facility]) Vital Signs (Past 12 Hours) Vital Signs Temp Pulse Pulse Resp BP BP Pulse Ox 11/14/19 22:01 94 H 19 94 11/14/19 22:00 96 H 17 123/84 95 11/14/19 21:31 94 H 20 92 11/14/19 21:30 97 H 20 119/73 92 11/14/19 21:01 101 H 17 96 11/14/19 21:00 104 H 22 113/72 92 11/14/19 20:52 20 116/76 96 11/14/19 20:01 90 22 95 11/14/19 20:00 90 20 115/80 97 11/14/19 19:31 114 H 16 105/82 97 11/14/19 19:30 117 H 12 99 11/14/19 19:27 101 H 20 121/84 99 11/14/19 18:26 37.0 C 127 H 20 131/101 H 96 Laboratory Results Laboratory Results WBC 1.89 K/uL (4.8-10.8) L 11/14/19 19:15 RBC 4.20 M/uL (4.2-5.4) 11/14/19 19:15 Hgb 12.9 g/dL (12.0-16.0) 11/14/19 19:15 Hct 38.2 % (37-47) 11/14/19 19:15 MCV 91.0 fL (80-100) 11/14/19 19:15 MCH 30.7 pg (25-34) 11/14/19 19:15 MCHC 33.8 g/dL (32-36) 11/14/19 19:15 RDW Std Deviation 56.2 fL (36.4-46.3) H 11/14/19 19:15 RDW Coeff of Nayana 16.9 % (11.5-14.5) H 11/14/19 19:15 Plt Count 57 K/uL (130-400) L 11/14/19 19:15 MPV 9.0 fL (7.4-10.4) 11/14/19 19:15 Neutrophils % (Manual) 23.5 % 11/14/19 19:15 Lymphocytes % (Manual) 64.3 % 11/14/19 19:15 Monocytes % (Manual) 9.6 % 11/14/19 19:15 Eosinophils % (Manual) 0.9 % 11/14/19 19:15 Basophils % (Manual) 1.7 % 11/14/19 19:15 Neutrophils # (Manual) 0.44 K/uL (1.4-6.5) L 11/14/19 19:15 Total Absolute Neuts 0.44 K/uL (1.4-6.5) L* 11/14/19 19:15 Lymphocytes # (Manual) 1.22 K/uL (1.2-3.4) 11/14/19 19:15 Total Abs Lymphocytes 1.22 K/uL (1.2-3.4) 11/14/19 19:15 Monocytes # (Manual) 0.18 K/uL (0.11-0.59) 11/14/19 19:15 Eosinophils # (Manual) 0.02 K/uL (0-0.5) 11/14/19 19:15 Basophils # (Manual) 0.03 K/uL (0-0.2) 11/14/19 19:15 Sodium 138 mmol/L (136-145) 11/14/19 19:15 Potassium 3.7 mmol/L (3.5-5.1) 11/14/19 19:15 Chloride 104 mmol/L (98-107) 11/14/19 19:15 Carbon Dioxide 22 mmol/L (21-32) 11/14/19 19:15 Anion Gap 12.0 (3-11) H 11/14/19 19:15 BUN 3 mg/dl (7-18) L 11/14/19 19:15 Creatinine 0.68 mg/dl (0.6-1.2) 11/14/19 19:15 Est Cr Clr Drug Dosing 112.8 ml/min 11/14/19 19:15 Est GFR ( Amer) 139.9 11/14/19 19:15 Est GFR (Non-Af Amer) 120.7 11/14/19 19:15 BUN/Creatinine Ratio 3.7 (10-20) L 11/14/19 19:15 Glucose 85 mg/dl (70-99) 11/14/19 19:15 Calcium 9.6 mg/dl (8.5-10.1) 11/14/19 19:15 Phosphorus 4.9 mg/dl (2.5-4.9) 11/14/19 19:15 Magnesium 2.1 mg/dl (1.8-2.4) 11/14/19 19:15 Total Bilirubin 0.6 mg/dl (0.2-1) 11/14/19 19:15 AST 150 U/L (15-37) H 11/14/19 19:15 ALT 77 U/L (12-78) 11/14/19 19:15 Alkaline Phosphatase 88 U/L (45-117) 11/14/19 19:15 Total Protein 8.6 gm/dl (6.4-8.2) H 11/14/19 19:15 Albumin 4.4 gm/dl (3.4-5.0) 11/14/19 19:15 Globulin 4.2 gm/dl (2.5-4.0) H 11/14/19 19:15 Albumin/Globulin Ratio 1.0 (0.9-2) 11/14/19 19:15 Lipase 69 U/L (73-393) L 11/14/19 19:15 HCG, Qual Negative (Negative) 11/14/19 19:15 Ethyl Alcohol mg/dL 264.5 mg/dl (0-3) H 11/14/19 19:[address] abdomen pelvis: 1. Slightly bulky appearance to the pancreas raising the possibility of residual low-grade pancreatitis. 2. This is unchanged compared to the prior study. 3. No evidence for peripancreatic infiltrative change, pseudocyst, abscess, or collection. 4. Small bilateral ovarian follicular cysts. 5. Study is otherwise negative.
[2019-11-14] MEDS ORDERED: LACTATED RINGER'S 1,000 ML IV ONE (22:24)
[2019-11-14] MEDS ORDERED: GABAPENTIN 800 MG TAB PO STA (22:27)
[2019-11-14] MEDS ORDERED: PANTOprazole 80 MG in DEXTROSE 5% 100 ML IV ONE (22:45)
[2019-11-14] MEDS ORDERED: GABAPENTIN 600 MG TAB PO STA (22:49)
[2019-11-14 23:14] LABS: Hematocrit (blood only) 35.3 % (37-47); Hemoglobin 11.5 g/dL (12.0-16.0)
[2019-11-15] MEDS ORDERED: ATIVAN IV ALCOHOL WITHDRAWL IV PRN (00:04)
[2019-11-15] MEDS ORDERED: GABAPENTIN 1200MG ALCOHOL WITHDRAWAL LOAD PO STA (00:04)
[2019-11-15] MEDS ORDERED: PROMETHAZINE HCL 12.5 MG in SODIUM CHLORIDE 0.9% 50 ML IV PRN (00:04)
[2019-11-15] MEDS ORDERED: LORazepam 3 MG/6 ML VIAL IV PRN (00:04)
[2019-11-15] MEDS ORDERED: MELATONIN 3 MG TAB PO PRN (00:18)
[2019-11-15] MEDS: MoRPHine SULFATE 4 MG/ML 1 ML CARP\\VIAL IV PRN ×3 (00:41→09:53)
[2019-11-15] MEDS: LACTATED RINGER'S 1,000 ML IV SCH ×5 (00:41→19:51)
[2019-11-15] MEDS: THIAMINE HCL 100 MG TAB PO SCH ×2 (01:21→07:18)
[2019-11-15] MEDS: LORazepam 2 MG/4 ML VIAL IV PRN ×4 (01:24→20:41)
[2019-11-15] MEDS: GABAPENTIN 600 MG TAB PO SCH ×3 (04:31→18:55)
[2019-11-15 04:45] LABS: Appearance Urine Clear (Clear); Bilirubin Urine Negative (Negative); Blood Urine Negative (Negative); Color Urine Yellow; Glucose Urine UA Negative (Negative); Ketones Urine Negative (Negative); Leukocyte Esterase Urine Negative (Negative); Nitrite Urine Negative (Negative); Protein Urine Negative (Negative); Specific Gravity Urine > 1.045 (1.000-1.030); Urobilinogen Urine Negative (Negative)
[2019-11-15] MEDS: OXYCODONE HCL IR 5 MG TAB (IMMEDIATE RELEASE) PO PRN ×3 (07:15→21:53)
[2019-11-15] MEDS: FOLIC ACID 1 MG TAB PO SCH (07:17)
[2019-11-15] MEDS: MULTIVITAMIN TAB PO SCH (07:18)
[2019-11-15 07:22] LABS: Hemoglobin 11.1 g/dL (12.0-16.0); Mean Corpuscular Hemoglobin 29.8 pg (25-34); Mean Corpuscular Hgb Conc 31.7 g/dL (32-36); Mean Corpuscular Volume 94.1 fL (80-100); RDW Coefficient of Variation 16.7 % (11.5-14.5); RDW Standard Deviation 57.5 fL (36.4-46.3); Red Blood Count 3.72 M/uL (4.2-5.4); White Blood Count 2.26 K/uL (4.8-10.8)
[2019-11-15 07:32] LABS: Prothrombin Time 10.9 Seconds (9.0-12.0)
[2019-11-15 08:00] LABS: Albumin Level 3.5 gm/dl (3.4-5.0); BUN Creatinine Ratio 3.9 (10-20); Calcium 8.5 mg/dl (8.5-10.1); Creatinine Clr Calc Pharmacy 134.6 ml/min; Est GFR (African American) 148.3; Est GFR (Non-African American) 127.9; Potassium 3.4 mmol/L (3.5-5.1)
[2019-11-15 08:05] LABS: Albumin Globulin Ratio 1.1 (0.9-2); Bilirubin,Total 0.8 mg/dl (0.2-1); Globulin 3.3 gm/dl (2.5-4.0); Total Protein 6.8 gm/dl (6.4-8.2)
[2019-11-15] MEDS ORDERED: POTASSIUM CHLORIDE 20 MEQ TABCR PO STA (08:32)
[2019-11-15] MEDS: LORazepam 1 MG/2 ML VIAL IV PRN (08:40)
[2019-11-15 08:42] LABS: Mean Platelet Volume 9.3 fL (7.4-10.4); Platelet Count 51 K/uL (130-400)
[2019-11-15 08:43] LABS: Basophils # (auto) 0.01 K/uL (0-0.2); Basophils % (auto) 0.4 %; Eosinophils # (auto) 0.05 K/uL (0-0.5); Eosinophils % (auto) 2.2 %; Lymphocytes # (auto) 0.97 K/uL (1.2-3.4); Lymphocytes % (auto) 42.9 %; Monocytes # (auto) 0.44 K/uL (0.11-0.59); Monocytes % (auto) 19.5 %; Neutrophils # (auto) 0.79 K/uL (1.4-6.5); Platelet Estimate Decreased (Normal)
[2019-11-15] MEDS: PANTOprazole 40 MG in SYRINGE 0 ML IV SCH ×2 (08:46→20:44)
[2019-11-15] MEDS: POTASSIUM CHLORIDE / WTR 10 MEQ/100 ML PLCT IV SCH (09:56)
--- NOTE | 2019-11-15 11:56 | Gastrointestinal Consultation ---
Date of Consultation November 15, 2019 Assessment & Plan (1) Abdominal pain: (2) Pancreatitis, alcoholic, acute: (3) Hematemesis: Pt is a 24 y/o female w ongoing ETOH abuse, recurrent ETOH pancreatitis who presented w epigastric abd pain, n/v, reported hematemesis x 2 episodes. H/H stable and BUN normal. No signs of melena. Suspect likely has gastritis/esophagitis. - Defer endoscopic eval at this time; but please notify GI if any sanna s/s of GI bleeding witnessed - Monitor H/H and transfuse prn - Protonix 40mg IV BID - Keep NPO, if no longer having n/v, may advance slowly as tolerated - IVF resuscitation w LR for pancreatitis, may DC if tolerating PO intake well - Obtain urine drug screeen - Symptomatic management of nausea, abd pain but judiciously use analgesics given previous hx of polysubstance abuse - Strict ETOH cessation advised; Watch for DT/ETOH withdrawals - GI to sign off; pls recall prn Supervising Physician Co-Signing Physician Notes I have personally seen and examined the patient with DANISH Oakes. Her note reflects my exam and findings. I agree with her impression and plan. No current indication for endoscopy. Watch for ETOH withdrawal. Bear Bland M.D. History of Present Illness Reason for Consultation: Epigastric pain, hematemesis, pancreatitis Requesting Physician: Dr. Rex Garsia Attending Physician: Dr. Bear Bland History of Present Illness Pt is a 24 y/o female w ongoing ETOH abuse, frequent admission with ETOH pancreatitis who presented yesterday w c/o abd pain, n/v. She reports epigastric pain, and saw red blood tinged emesis yesterday morning. She has been very shaky as well. Continues to drink Tequila and beer, + marijuana but denies other illicit drugs. She denies fever, chills, CP, SOB. Last BM loose, yellow stools yesterday. This AM she report another episode of hematemesis. However per [employer] she only witnessed specks of bright red blood in pt's sink. Noted blood ct stable overnight w normal BUN. CT abd/pelvis w contrast showed possible low grade pancreatitis, no evidence of pseudocyst, abscess or fluid collection. Otherwise unremarkable. Her LFTs and lipase are normal. Allergies Allergy/AdvReac Type Severity Reaction Status Date / Time amairani Allergy Mild GUMS SWELL Verified 10/30/19 22:47 mushroom Allergy Mild GUMS SWELL Verified 10/30/19 22:47 Home Medications Home Medications Medication Instructions Recorded Confirmed Type multivitamin 1 tab PO DAILY 09/24/18 11/14/19 History doxylamine succinate [Sleep Aid 25 mg PO HS PRN 11/14/19 11/14/19 History (doxylamine)] melatonin 5 mg PO HS PRN 11/14/19 11/14/19 History Patient History Medical History Alcohol withdrawal (Acute) Anemia Hypokalemia Mood disorder (Acute) Polysubstance abuse Recurrent pancreatitis (Acute) Thrombocytopenia (Acute) Surgical History History of orthopedic surgery Family History Other No significant family history Social History Preferred Language: German Communication Ability: Effective Pamphlet Distributor Required: No Beliefs That Will Affect Care: None marital status: Single Current Living Situation: Other Current Living Situation Comment: roomate Feels Safe at Home: Yes Smoking Status: Current every day smoker Tobacco Type: cigarettes ; Cigarettes Per Day: 20 ; Second Hand Exposure: No ; Hx Alcohol Use: Yes Alcohol type: beer Hx Substance Use: Yes substance use type: marijuana Last Used Substance: Hours (ago) Review of Systems Review of Systems: All systems reviewed & are unremarkable except as noted in HPI & below Physical Exam Constitutional: + frail appearing and cooperative; + not well groomed appears shaky Eyes: PERRL, conjunctivae normal, anicteric sclerae ENMT: external ear and nose normal, oropharynx normal Respiratory: normal respiratory effort, lungs clear to auscultation Cardiovascular: RRR, no murmur, no edema Gastrointestinal (Abdomen): Inspection/Auscultation: + hypoactive bowel sounds Percussion/Palpation: + abdomen tender (diffuse) and abdomen soft Skin: no rashes, warm and dry no jaundice Neurologic: appears shaky Psychiatric: A+Ox3, euthymic affect Lymphatic: no lymphedema Results & Data ([facility]) Vital Signs (Past 12 Hours) Vital Signs Temp Pulse Resp BP Pulse Ox Pulse Ox 11/15/19 11:05 36.9 C 113 H 18 129/88 11/15/19 07:25 37.1 C 115 H 20 127/82 98 11/15/19 00:15 36.8 C 69 18 132/87 93 93
[2019-11-15 12:30] LABS: Hematocrit (blood only) 34.1 % (37-47); Hemoglobin 11.4 g/dL (12.0-16.0)
--- NOTE | 2019-11-15 12:47 | Electrocardiogram Report ---
Test Reason : Blood Pressure : / mmHG Vent. Rate : 104 BPM Atrial Rate : 104 BPM P-R Int : 136 ms QRS Dur : 072 ms QT Int : 324 ms P-R-T Axes : 059 074 057 degrees QTc Int : 426 ms Sinus tachycardia Otherwise normal ECG Confirmed by Kendell Mondragon ([id number]) on 11/15/2019 12:46:52 PM Referred By: REFERRED SELF Confirmed By:Kendell Mondragon
[2019-11-15] MEDS: ONDANSETRON INJ 2 MG/ML 2 ML VIAL IV PRN (14:09)
[2019-11-15] MEDS: HYDROmorphone INJ 0.5 MG/0.5 ML SYR IV PRN ×3 (15:20→23:56)
[2019-11-15 16:03] LABS: Amphetamines+Metham, Urine Neg (Neg); Barbiturates, Urine Neg (Neg); Benzodiazepine, Urine Neg (Neg); Cocaine, Urine Neg (Neg); MDMA (Ecstacy), Urine Neg (Neg); Methadone, Urine Neg (Neg); Opiate, Urine Pos (Neg); Phencyclidine, Urine Neg (Neg)
--- NOTE | 2019-11-15 20:19 | Hospitalist Progress Note ---
Date of Service November 15, 2019 Assessment & Plan (1) Abdominal pain: Multifactorial : UGIB ddx : MWT, gastritis Recurrent alcoholic pancreatitis, recurrent admissions/ER visits for abdominal pain in the setting of repeated alcohol intake Diarrhea rule out C. difficile --Hemoglobin stable Continue Protonix IV every 12 hours Monitor H&H Clear liquids IV fluids GI consulted, appreciate recommendations PRN low-dose Dilaudid and oxycodone with holding parameters Alcohol withdrawal --Monitor LFTs Continue gabapentin protocol, and PRN Ativan Alcohol rehab discussed with patient anxiety/mood disorder, at baseline --Denies depression or suicidal ideation ongoing tobacco abuse --Will need counseling chronic thrombocytopenia --Platelet count in the 50,000 Continue to monitor DVT prophylaxis. SCDs RE UGIB Full code Disposition Pending Patient encouraged to undergo alcohol rehabilitation directly from hospital Reports that she is needs to establish her apartment before going to alcohol rehab Plan of care discussed with patient in detail All questions were answered She is understanding, agreeable, comfortable plan of care Admission and Anticipated Discharge Date Admission Date: November 14, 2019 Subjective Follow-up for hematemesis, alcohol withdrawal Seen with BARRIE Alexandra at the bedside throughout whole encounter Seen sleeping but easily awakened Not in distress, comfortable, appears tired but oriented x3 Answers all questions appropriately States that she continues to have significant epigastric pain, associated with nausea Reports 1 episode of mild hematemesis this morning No chest pain, shortness of breath, palpitations, dizziness Reports tremors, and feeling anxious, but no hallucinations, sweating No other symptoms Review of Systems Review of Systems: All systems reviewed & are unremarkable except as noted in HPI & below Physical Exam 2 Physical Exam: General- oriented x 3, not in distress, speaks in sentences with no effort or accessory muscle use Appears tired Head- atraumatic Eyes- PERRL, EOMI, anicteric ENT- oropharynx clear Neck- supple, no JVD, no adenopathy, no thyromegaly; carotids +2/2, no bruits appreciated Lungs- clear to auscultation bilaterally, no rales/wheezes Heart- normal rate, regular rhythm; no murmur, no gallop, no rub appreciated Abdomen- normal bowel sounds, nondistended, soft, nontender, no masses or hepatosplenomegaly Extremities- no pretibial edema, no calf tenderness; peripheral pulses intact Neuro- alert, oriented x 3; CN 2-12 grossly intact; motor 5/5 bilaterally;sensation 100% on all extremities; no other gross focal neurologic deficits Skin- warm & dry Results & Data Results & Data ([facility]) Vital Signs (Past 12 Hours) Vital Signs Temp Pulse Pulse Pulse Resp BP Pulse Ox 11/15/19 20:02 37.0 C 125 H 18 122/90 96 11/15/19 17:13 105 H 11/15/19 15:18 36.9 C 106 H 20 123/76 96 11/15/19 14:06 36.8 C 112 H 18 133/86 97 11/15/19 11:05 36.9 C 113 H 18 129/88 Laboratory Results Laboratory Results - last 24 hr 11/14/19 11/14/19 11/14/19 19:15 23:02 23:02 WBC RBC Hgb 11.5 L Hct 35.3 L MCV MCH MCHC RDW Std Deviation RDW Coeff of Nayana Plt Count MPV Immature Gran % (Auto) Neut % (Auto) Lymph % (Auto) [place] % (Auto) Eos % (Auto) Baso % (Auto) Neut # (Auto) Lymph # (Auto) [place] # (Auto) Eos # (Auto) Baso # (Auto) Immature Gran # (Auto) Neutrophils % (Manual) 23.5 Lymphocytes % (Manual) 64.3 Monocytes % (Manual) 9.6 Eosinophils % (Manual) 0.9 Basophils % (Manual) 1.7 Neutrophils # (Manual) 0.44 L Total Absolute Neuts 0.44 L* Lymphocytes # (Manual) 1.22 Total Abs Lymphocytes 1.22 Monocytes # (Manual) 0.18 Eosinophils # (Manual) 0.02 Basophils # (Manual) 0.03 Platelet Estimate PT INR Sodium Potassium Chloride Carbon Dioxide Anion Gap BUN Creatinine Est Cr Clr Drug Dosing Est GFR ( Amer) Est GFR (Non-Af Amer) BUN/Creatinine Ratio Glucose Calcium Total Bilirubin AST ALT Alkaline Phosphatase Total Protein Albumin Globulin Albumin/Globulin Ratio Lipase Urine Color Urine Appearance Urine pH Ur Specific [place] Urine Protein Urine Glucose (UA) Urine Ketones Urine Blood Urine Nitrite Urine Bilirubin Urine Urobilinogen Ur Leukocyte Esterase Urine Opiates Screen U Codeine Confrm GC/MS Ur Morphine (GC/MS) Ur Hydrocodone (GC/MS) Ur Norhydrocodone Ur Noroxycodone Urine Oxycodone (GC/MS) U Oxymorphone GC/MS Ur Methadone, Qual Ur Hydromorphone (GC/MS) Urine Barbiturates Ur Phencyclidine (PCP) U Amphetamin/Meth Scrn MDMA (Ecstasy) Screen U Benzodiazepines Scrn Ur Cocaine Metabolite U Marijuana (THC) Screen U Marijuana THC Carboxy Drug Screen Comment Blood Type A Positive Antibody Screen NEGATIVE 11/15/19 11/15/19 11/15/19 04:33 06:59 06:59 WBC 2.26 L RBC 3.72 L Hgb 11.1 L Hct 35.0 L MCV 94.1 MCH 29.8 MCHC 31.7 L RDW Std Deviation 57.5 H RDW Coeff of Nayana 16.7 H Plt Count 51 L MPV 9.3 Immature Gran % (Auto) 0.0 Neut % (Auto) 35.0 Lymph % (Auto) 42.9 [place] % (Auto) 19.5 Eos % (Auto) 2.2 Baso % (Auto) 0.4 Neut # (Auto) 0.79 L* Lymph # (Auto) 0.97 L [place] # (Auto) 0.44 Eos # (Auto) 0.05 Baso # (Auto) 0.01 Immature Gran # (Auto) 0.00 Neutrophils % (Manual) Lymphocytes % (Manual) Monocytes % (Manual) Eosinophils % (Manual) Basophils % (Manual) Neutrophils # (Manual) Total Absolute Neuts Lymphocytes # (Manual) Total Abs Lymphocytes Monocytes # (Manual) Eosinophils # (Manual) Basophils # (Manual) Platelet Estimate Decreased L PT INR Sodium 135 L Potassium 3.4 L Chloride 104 Carbon Dioxide 23 Anion Gap 8.0 BUN 2 L Creatinine 0.57 L Est Cr Clr Drug Dosing 134.6 Est GFR ( Amer) 148.3 Est GFR (Non-Af Amer) 127.9 BUN/Creatinine Ratio 3.9 L Glucose 71 Calcium 8.5 Total Bilirubin 0.8 AST 122 H ALT 62 Alkaline Phosphatase 73 Total Protein 6.8 D Albumin 3.5 Globulin 3.3 Albumin/Globulin Ratio 1.1 Lipase Urine Color Yellow Urine Appearance Clear Urine pH 5.0 Ur Specific [place] > 1.045 H Urine Protein Negative Urine Glucose (UA) Negative Urine Ketones Negative Urine Blood Negative Urine Nitrite Negative Urine Bilirubin Negative Urine Urobilinogen Negative Ur Leukocyte Esterase Negative Urine Opiates Screen U Codeine Confrm GC/MS Ur Morphine (GC/MS) Ur Hydrocodone (GC/MS) Ur Norhydrocodone Ur Noroxycodone Urine Oxycodone (GC/MS) U Oxymorphone GC/MS Ur Methadone, Qual Ur Hydromorphone (GC/MS) Urine Barbiturates Ur Phencyclidine (PCP) U Amphetamin/Meth Scrn MDMA (Ecstasy) Screen U Benzodiazepines Scrn Ur Cocaine Metabolite U Marijuana (THC) Screen U Marijuana THC Carboxy Drug Screen Comment Blood Type Antibody Screen 11/15/19 11/15/19 11/15/19 06:59 06:59 12:22 WBC RBC Hgb 11.4 L Hct 34.1 L MCV MCH MCHC RDW Std Deviation RDW Coeff of Nayana Plt Count MPV Immature Gran % (Auto) Neut % (Auto) Lymph % (Auto) [place] % (Auto) Eos % (Auto) Baso % (Auto) Neut # (Auto) Lymph # (Auto) [place] # (Auto) Eos # (Auto) Baso # (Auto) Immature Gran # (Auto) Neutrophils % (Manual) Lymphocytes % (Manual) Monocytes % (Manual) Eosinophils % (Manual) Basophils % (Manual) Neutrophils # (Manual) Total Absolute Neuts Lymphocytes # (Manual) Total Abs Lymphocytes Monocytes # (Manual) Eosinophils # (Manual) Basophils # (Manual) Platelet Estimate PT 10.9 INR 1.0 Sodium Potassium Chloride Carbon Dioxide Anion Gap BUN Creatinine Est Cr Clr Drug Dosing Est GFR ( Amer) Est GFR (Non-Af Amer) BUN/Creatinine Ratio Glucose Calcium Total Bilirubin AST ALT Alkaline Phosphatase Total Protein Albumin Globulin Albumin/Globulin Ratio Lipase 61 L Urine Color Urine Appearance Urine pH Ur Specific [place] Urine Protein Urine Glucose (UA) Urine Ketones Urine Blood Urine Nitrite Urine Bilirubin Urine Urobilinogen Ur Leukocyte Esterase Urine Opiates Screen U Codeine Confrm GC/MS Ur Morphine (GC/MS) Ur Hydrocodone (GC/MS) Ur Norhydrocodone Ur Noroxycodone Urine Oxycodone (GC/MS) U Oxymorphone GC/MS Ur Methadone, Qual Ur Hydromorphone (GC/MS) Urine Barbiturates Ur Phencyclidine (PCP) U Amphetamin/Meth Scrn MDMA (Ecstasy) Screen U Benzodiazepines Scrn Ur Cocaine Metabolite U Marijuana (THC) Screen U Marijuana THC Carboxy Drug Screen Comment Blood Type Antibody Screen 11/15/19 11/15/19 Unknown Unknown WBC RBC Hgb Hct MCV MCH MCHC RDW Std Deviation RDW Coeff of Nayana Plt Count MPV Immature Gran % (Auto) Neut % (Auto) Lymph % (Auto) [place] % (Auto) Eos % (Auto) Baso % (Auto) Neut # (Auto) Lymph # (Auto) [place] # (Auto) Eos # (Auto) Baso # (Auto) Immature Gran # (Auto) Neutrophils % (Manual) Lymphocytes % (Manual) Monocytes % (Manual) Eosinophils % (Manual) Basophils % (Manual) Neutrophils # (Manual) Total Absolute Neuts Lymphocytes # (Manual) Total Abs Lymphocytes Monocytes # (Manual) Eosinophils # (Manual) Basophils # (Manual) Platelet Estimate PT INR Sodium Potassium Chloride Carbon Dioxide Anion Gap BUN Creatinine Est Cr Clr Drug Dosing Est GFR ( Amer) Est GFR (Non-Af Amer) BUN/Creatinine Ratio Glucose Calcium Total Bilirubin AST ALT Alkaline Phosphatase Total Protein Albumin Globulin Albumin/Globulin Ratio Lipase Urine Color Urine Appearance Urine pH Ur Specific [place] Urine Protein Urine Glucose (UA) Urine Ketones Urine Blood Urine Nitrite Urine Bilirubin Urine Urobilinogen Ur Leukocyte Esterase Urine Opiates Screen Pos H U Codeine Confrm GC/MS Pending Ur Morphine (GC/MS) Pending Ur Hydrocodone (GC/MS) Pending Ur Norhydrocodone Pending Ur Noroxycodone Pending Urine Oxycodone (GC/MS) Pending U Oxymorphone GC/MS Pending Ur Methadone, Qual Neg Ur Hydromorphone (GC/MS) Pending Urine Barbiturates Neg Ur Phencyclidine (PCP) Neg U Amphetamin/Meth Scrn Neg MDMA (Ecstasy) Screen Neg U Benzodiazepines Scrn Neg Ur Cocaine Metabolite Neg U Marijuana (THC) Screen Pos H U Marijuana THC Carboxy Pending Drug Screen Comment Pending Blood Type Antibody Screen
[2019-11-16] MEDS: LORazepam 2 MG/4 ML VIAL IV PRN ×2 (00:50→06:10)
[2019-11-16] MEDS: LACTATED RINGER'S 1,000 ML IV SCH ×6 (00:57→23:52)
[2019-11-16] MEDS: OXYCODONE HCL IR 5 MG TAB (IMMEDIATE RELEASE) PO PRN ×5 (02:13→21:03)
[2019-11-16] MEDS: GABAPENTIN 600 MG TAB PO SCH ×3 (02:13→21:57)
[2019-11-16] MEDS: HYDROmorphone INJ 0.5 MG/0.5 ML SYR IV PRN ×5 (03:32→20:17)
[2019-11-16] MEDS: FOLIC ACID 1 MG TAB PO SCH (07:43)
[2019-11-16] MEDS: THIAMINE HCL 100 MG TAB PO SCH (07:43)
[2019-11-16] MEDS: MULTIVITAMIN TAB PO SCH (07:44)
[2019-11-16] MEDS: PANTOprazole 40 MG in SYRINGE 0 ML IV SCH ×2 (07:46→20:17)
[2019-11-16] MEDS: LORazepam 1 MG/2 ML VIAL IV PRN ×4 (09:59→21:27)
[2019-11-16 10:02] LABS: Hematocrit (blood only) 35.4 % (37-47); Hemoglobin 11.5 g/dL (12.0-16.0); Mean Corpuscular Hemoglobin 30.3 pg (25-34); Mean Corpuscular Hgb Conc 32.5 g/dL (32-36); Mean Corpuscular Volume 93.2 fL (80-100); RDW Coefficient of Variation 15.9 % (11.5-14.5); RDW Standard Deviation 54.4 fL (36.4-46.3); White Blood Count 2.61 K/uL (4.8-10.8)
[2019-11-16 10:06] LABS: Mean Platelet Volume 10.2 fL (7.4-10.4); Platelet Count 46 K/uL (130-400)
[2019-11-16 10:37] LABS: Basophils # (auto) 0.01 K/uL (0-0.2); Basophils % (auto) 0.4 %; Eosinophils # (auto) 0.09 K/uL (0-0.5); Eosinophils % (auto) 3.4 %; Lymphocytes # (auto) 1.03 K/uL (1.2-3.4); Lymphocytes % (auto) 39.5 %; Monocytes # (auto) 0.57 K/uL (0.11-0.59); Monocytes % (auto) 21.8 %; Neutrophils # (auto) 0.91 K/uL (1.4-6.5); Neutrophils % (auto) 34.9 %
[2019-11-16 10:39] LABS: Calcium 9.2 mg/dl (8.5-10.1); Est GFR (African American) 146.6; Est GFR (Non-African American) 126.5; Potassium 3.8 mmol/L (3.5-5.1)
--- NOTE | 2019-11-16 11:12 | CT Scan Report ---
HEAD CT NONCONTRAST CT DOSE: 537.48 mGy.cm HISTORY: s/p fall r/o hemorrhage TECHNIQUE: Multiaxial CT images of the head were performed without the use of intravenous contrast. A utomated exposure control was utilized for this study. A dose lowering technique was utilized adheri ng to the principles of ALARA. Comparison: Head CT 09/16/2019. Findings: Mild mucosal thickening within the paranasal sinuses. The mastoid air cells are clear. The calvarium and skull base are intact. The ventricles and sulci are within normal limits. There is no m ass, hematoma, midline shift, or acute infarct. Impression: No acute intracranial abnormality. ACT 112: Negative or not required by law. Electronically signed by: Sadiq Pace M.D. 11/16/2019 11:11 AM
[2019-11-16] MEDS: ONDANSETRON INJ 2 MG/ML 2 ML VIAL IV PRN (14:25)
--- NOTE | 2019-11-16 17:08 | Hospitalist Progress Note ---
Date of Service November 16, 2019 Assessment & Plan (1) Abdominal pain: Multifactorial : UGIB ddx : MWT, gastritis Recurrent alcoholic pancreatitis, recurrent admissions/ER visits for abdominal pain in the setting of repeated alcohol intake Diarrhea rule out C. difficile --Hemoglobin stable Continue Protonix IV every 12 hours Monitor H&H Clear liquids Continue IV fluids GI consulted, appreciate recommendations PRN low-dose Dilaudid and oxycodone with holding parameters Status post fall --Mechanical CT head, no acute process No other symptoms We will continue to monitor closely Alcohol withdrawal --No signs of DTs so far --Monitor LFTs Continue gabapentin protocol, and PRN Ativan Alcohol rehab encouraged Anxiety/mood disorder, at baseline --Denies depression or suicidal ideation Ongoing tobacco abuse -- counseling Chronic thrombocytopenia --Platelet count 45K, no bleeding Continue to monitor DVT prophylaxis. SCDs RE UGIB Full code Disposition Pending Patient encouraged to undergo alcohol rehabilitation directly from hospital Reports that she needs to establish her apartment before going to alcohol rehab Plan of care discussed with patient in detail All questions were answered She is understanding, agreeable, comfortable plan of care Admission and Anticipated Discharge Date Admission Date: November 14, 2019 Subjective ff up for hematemesis, epigastric pain, possible acute pancreatitis Seen with APPRAISAL SPECIALIST at the bedside throughout whole encounter Sitting up in bed, comfortable, drawing States she feels slightly better compared to yesterday, but still has significant epigastric pain No nausea today, would like to try clear liquid diet today No hematemesis or melena Still reports tremors, feeling anxious but no depression, also reports visual hallucinations Jumped back after having a visual hallucination, hit head and elbow of the wall Denies headache, neck pain, dizziness, nausea, problems with vision Denies other symptoms Review of Systems Review of Systems: All systems reviewed & are unremarkable except as noted in HPI & below Physical Exam Physical Exam: General- oriented x 3, not in distress, speaks in sentences with no effort or accessory muscle use Eyes- anicteric Neck- no JVD Lungs- clear breath sounds bilaterally, no rales/wheezes Heart- normal rate, regular rhythm; no murmurs Abdomen- normal bowel sounds, nondistended, soft, nontender Extremities- no pretibial edema, no calf tenderness Mild bilateral hand tremors Neuro- alert, oriented x 3; no gross focal neurologic deficits Skin- warm & dry Results & Data Results & Data ([facility]) Vital Signs (Past 12 Hours) Vital Signs Temp Pulse Pulse Resp BP Pulse Ox 11/16/19 15:33 37.1 C 89 20 130/86 98 11/16/19 15:10 127 H 11/16/19 12:47 36.9 C 100 H 20 120/81 97 11/16/19 07:56 37.0 C 85 20 134/85 95 11/16/19 06:04 125 H 20 128/95 99 Laboratory Results Laboratory Results - last 24 hr 11/16/19 11/16/19 11/16/19 09:49 09:49 11:24 WBC 2.61 L RBC 3.80 L Hgb 11.5 L Hct 35.4 L MCV 93.2 MCH 30.3 MCHC 32.5 RDW Std Deviation 54.4 H RDW Coeff of Nayana 15.9 H Plt Count 46 L MPV 10.2 Immature Gran % (Auto) 0.0 Neut % (Auto) 34.9 Lymph % (Auto) 39.5 [place] % (Auto) 21.8 Eos % (Auto) 3.4 Baso % (Auto) 0.4 Neut # (Auto) 0.91 L* Lymph # (Auto) 1.03 L [place] # (Auto) 0.57 Eos # (Auto) 0.09 Baso # (Auto) 0.01 Immature Gran # (Auto) 0.00 Sodium 135 L Potassium 3.8 Chloride 98 Carbon Dioxide 25 Anion Gap 11.0 BUN 2 L Creatinine 0.59 L Est Cr Clr Drug Dosing 130.0 Est GFR ( Amer) 146.6 Est GFR (Non-Af Amer) 126.5 BUN/Creatinine Ratio 4.0 L Glucose 63 L Calcium 9.2 Stl C. diff Tox B Gene Negative Cdiff Gene
[2019-11-17] MEDS: HYDROmorphone INJ 0.5 MG/0.5 ML SYR IV PRN (00:29)
[2019-11-17] MEDS: LORazepam 1 MG/2 ML VIAL IV PRN ×2 (01:02→07:48)
[2019-11-17] MEDS: OXYCODONE HCL IR 5 MG TAB (IMMEDIATE RELEASE) PO PRN ×2 (01:55→07:42)
[2019-11-17] MEDS ORDERED: HYDROmorphone INJ 0.5 MG/0.5 ML SYR IV PRN (04:35)
--- NOTE | 2019-11-17 05:20 | Communication Note ---
Date of Service: November 17, 2019 Notified by RN around 4:20 AM of patient incessant requests for pain and anxiety medication overnight. As per RN, patient documenting medication and time of administration. Patient "ringing call barraza directly on the dot when next dose is due" as per RN. (Similar behavior also witnessed by another RN yesterday as per documentation.) Patient complaining of visual/auditory hallucinations, stable vitals as per RN. Patient "pleading" for Dilaudid, oxycodone, or Ativan earlier than prescribed dosing frequency. As per RN, patient started crying and freaking out when Tylenol offered for breakthrough pain. Patient demanded to talk to hospitalist contact acid plant operator helper to discuss concerns. Worsening abdominal pain as per patient. "My abdominal pain worsens when I do not get medications on schedule." AP Worsening abdominal pain Recurrent admissions for alcoholic pancreatitis Concern drug-seeking behavior History of substance abuse as per records Repeat CT abdomen pelvis now I told patient I was uncomfortable going over her current anxiety/analgesia regimen until CT results known. I explained to her that as needed anxiolytic/narcotic medications are dosed and administered at a specified frequencies for patient safety to avoid overdosage/unwanted side effects. Will relay events to AM provider.
[2019-11-17] MEDS ORDERED: IOVERSOL 100ml IV PRN (05:24)
[2019-11-17] MEDS: hydrOXYzine HCl 10 MG TAB PO PRN ×2 (06:11→11:17)
[2019-11-17 07:29] LABS: Mean Corpuscular Hemoglobin 30.1 pg (25-34); Mean Corpuscular Hgb Conc 32.4 g/dL (32-36); Mean Corpuscular Volume 92.7 fL (80-100); RDW Coefficient of Variation 15.7 % (11.5-14.5); RDW Standard Deviation 53.2 fL (36.4-46.3); Red Blood Count 3.99 M/uL (4.2-5.4); White Blood Count 2.37 K/uL (4.8-10.8)
[2019-11-17 07:30] LABS: Platelet Count 52 K/uL (130-400)
[2019-11-17] MEDS: FOLIC ACID 1 MG TAB PO SCH (07:43)
[2019-11-17] MEDS: THIAMINE HCL 100 MG TAB PO SCH (07:43)
[2019-11-17] MEDS: MULTIVITAMIN TAB PO SCH (07:43)
[2019-11-17] MEDS: PANTOprazole 40 MG in SYRINGE 0 ML IV SCH ×2 (07:47→21:20)
[2019-11-17 07:49] LABS: Basophils # (auto) 0.01 K/uL (0-0.2); Basophils % (auto) 0.4 %; Eosinophils # (auto) 0.07 K/uL (0-0.5); Lymphocytes # (auto) 0.76 K/uL (1.2-3.4); Lymphocytes % (auto) 32.1 %; Monocytes # (auto) 0.48 K/uL (0.11-0.59); Monocytes % (auto) 20.3 %; Neutrophils # (auto) 1.05 K/uL (1.4-6.5); Neutrophils % (auto) 44.2 %
--- NOTE | 2019-11-17 07:57 | CT Scan Report ---
CT OF THE ABDOMEN AND PELVIS WITH CONTRAST CLINICAL HISTORY: Worsening abdominal pain. COMPARISON STUDY: CT of the abdomen and pelvis November 14, 2019. TECHNIQUE: Following IV administration of 93 mL of Optiray-320, axial images of the abdomen and pelvi s were obtained from the lung bases to the proximal femurs. Images were reviewed in the axial, sagitt al, and coronal planes. IV contrast was administered without complication. Automated exposure contro l was utilized for the study. A dose lowering technique was utilized adhering to the principles of A TORRES. CT DOSE: 274.41 mGy.cm FINDINGS: Lung bases are unremarkable. No pneumatosis, free air or portal venous gas is present. Ther e is fatty infiltration of the liver. There is no biliary or pancreatic ductal dilatation. There is n o peripancreatic or pericholecystic infiltration. Major vasculature is patent. The adrenal glands and kidneys are unremarkable. There is no evidence for a bowel obstruction. The appendix is unremarkable . Ovaries are not enlarged. There is no ascites. There is no fluid collection within the abdomen or p tariq. No lymphadenopathy is present. There is a skeletal structures are unremarkable. IMPRESSION: 1. No acute process within the abdomen or pelvis. 2. Fatty infiltration of the liver. ACT 112: Negative or not required by law. Electronically signed by: Nathanael Jurado M.D. 11/17/2019 7:56 AM
[2019-11-17 08:10] LABS: Alanine Aminotransferase 50 U/L (12-78); Albumin Level 3.6 gm/dl (3.4-5.0); Aspartate Aminotransferase 67 U/L (15-37); BUN Creatinine Ratio 2.9 (10-20); Blood Urea Nitrogen 2 mg/dl (7-18); Calcium 9.2 mg/dl (8.5-10.1); Carbon Dioxide 23 mmol/L (21-32); Chloride 99 mmol/L (98-107); Creatinine Clr Calc Pharmacy 150.4 ml/min; Est GFR (African American) > 150.0; Est GFR (Non-African American) 132.7; Glucose 69 mg/dl (70-99); Lipase 43 U/L (73-393); Magnesium 1.7 mg/dl (1.8-2.4); Potassium 3.3 mmol/L (3.5-5.1); Sodium 136 mmol/L (136-145)
[2019-11-17 08:12] LABS: Alkaline Phosphatase 74 U/L (45-117); Globulin 3.5 gm/dl (2.5-4.0); Total Protein 7.1 gm/dl (6.4-8.2)
[2019-11-17] MEDS: GABAPENTIN 600 MG TAB PO SCH (11:17)
[2019-11-17] MEDS ORDERED: LORazepam 1 MG TAB PO PRN (13:14)
--- NOTE | 2019-11-17 13:15 | Hospitalist Progress Note ---
Date of Service November 17, 2019 Assessment & Plan (1) Abdominal pain: Possible UGIB secondary to Alcoholic Gastritis Recurrent alcoholic pancreatitis, recurrent admissions/ER visits for abdominal pain in the setting of repeated alcohol intake --Hemoglobin stable 11-12 change protonix IV to PO diet advanced to soft, tolerating well GI consulted, appreciate recommendations PRN low-dose Dilaudid and oxycodone with holding parameters Status post fall --Mechanical CT head, no acute process No other symptoms Alcohol withdrawal --No signs of DTs so far --Monitor LFTs--> stable Continue gabapentin protocol, and PRN Ativan Alcohol rehab encouraged Hypokalemia, Magnesemia - replaced Anxiety/mood disorder, at baseline --Denies depression or suicidal ideation --Psych consulted for anxiety recommend Vistaril 25mg po HS for insomnia, can order another 25mg 1 hour later if still with insomnia -- recommend close outpatient ff up with patient's regular psychiatrist Ongoing tobacco abuse -- counseling Chronic thrombocytopenia, Neutropenia -- likely secondary to Alcoholism --Platelet count 52k, no bleeding Continue to monitor -- peripheral smear: pending DVT prophylaxis. SCDs RE UGIB Full code Disposition Pending Patient encouraged to undergo alcohol rehabilitation directly from hospital Reports that she needs to establish her apartment before going to alcohol rehab Plan of care discussed with patient in detail All questions were answered She is understanding, agreeable, comfortable plan of care Admission and Anticipated Discharge Date Admission Date: November 14, 2019 Subjective ff up for hematemesis, alcohol withdrawal seen with ANNETTE Mitchell throughout whole encounter resting in bed, comfortable, not in distress states she feels improved today overall requested solid food, tolerated well, no nausea/vomiting, abdominal pain improving (+) BMs, no melena/hematochezia, hematemesis denies chest pain, dyspnea, dizziness, palpitations still reports anxiety but no depression, suicidal ideations--> agreed with Psych consult discussed plan of care in detail and at length all questions answered she is understanding, comfortable and agreeable with plan of care around 5pm, ANNETTE Leung messaged that patient would like to sign out AMA saw patient with ANNETTE Leung throughout whole encounter upon entering the room, patient was comfortable, not in distress or emotional distress, having her dinner when inquired, patient states her anxiety level is high and "they would not give my meds" explained to her we are following a protocol consisting of Gabapentin and PRN ativan, and that she is also receiving pain medications she became tearful and said that she can not sleep here, requesting for additional medications to help her sleep explained to her that additional benzodiazepene will not be safe explained risks in signing out AMA including worsening DT, seizures, possible injuries, organ damage and possibly states she will think about whether she will sign out AMA or not discussed with Psych liaison Silverio, who discussed case with Dr. De La Rosa they recommend Vistaril 25mg po HS as needed for insomnia discussed this with patient and she is agreeable no other symptoms she is understanding, comfortable and agreeable with plan of care Review of Systems Review of Systems: All systems reviewed & are unremarkable except as noted in HPI & below Physical Exam Physical Exam: General- oriented x 3, not in distress, speaks in sentences with no effort or accessory muscle use Eyes- anicteric Neck- no JVD Lungs- clear breath sounds bilaterally no wheezing Heart- normal rate, regular rhythm; no murmurs Abdomen- normal bowel sounds, nondistended, soft, nontender Extremities- no pretibial edema, no calf tenderness Neuro- alert, oriented x 3; no gross focal neurologic deficits Skin- warm & dry Results & Data Results & Data ([facility]) Vital Signs (Past 12 Hours) Vital Signs Temp Pulse Pulse Resp BP Pulse Ox 11/17/19 11:14 36.8 C 91 H 20 106/68 97 11/17/19 10:21 101 H 11/17/19 08:10 36.8 C 88 20 125/86 99 11/17/19 04:00 36.7 C 97 H 20 128/84 98 Laboratory Results Laboratory Results - last 24 hr 11/17/19 11/17/19 11/17/19 07:07 07:07 13:21 WBC 2.37 L RBC 3.99 L Hgb 12.0 Hct 37.0 MCV 92.7 MCH 30.1 MCHC 32.4 RDW Std Deviation 53.2 H RDW Coeff of Nayana 15.7 H Plt Count 52 L MPV 9.0 Immature Gran % (Auto) 0.0 Neut % (Auto) 44.2 Lymph % (Auto) 32.1 [place] % (Auto) 20.3 Eos % (Auto) 3.0 Baso % (Auto) 0.4 Neut # (Auto) 1.05 L Lymph # (Auto) 0.76 L [place] # (Auto) 0.48 Eos # (Auto) 0.07 Baso # (Auto) 0.01 Immature Gran # (Auto) 0.00 Peripher Smr Path Cons Pending Sodium 136 Potassium 3.3 L Chloride 99 Carbon Dioxide 23 Anion Gap 13.0 H BUN 2 L Creatinine 0.51 L Est Cr Clr Drug Dosing 150.4 Est GFR ( Amer) > 150.0 Est GFR (Non-Af Amer) 132.7 BUN/Creatinine Ratio 2.9 L Glucose 69 L Calcium 9.2 Magnesium 1.7 L Total Bilirubin 1.0 AST 67 H ALT 50 Alkaline Phosphatase 74 Total Protein 7.1 Albumin 3.6 Globulin 3.5 Albumin/Globulin Ratio 1.0 Lipase 43 L Folate > 24.00
[2019-11-17] MEDS ORDERED: MAGNESIUM SULFATE / D5W 1 GM/100 ML BAG IV ONE (13:30)
[2019-11-17] MEDS: POTASSIUM CHLORIDE 20 MEQ TABCR PO SCH ×2 (13:46→21:19)
[2019-11-17] MEDS: LORazepam 1 MG TAB PO PRN ×2 (16:42→19:44)
[2019-11-17] MEDS ORDERED: LACTATED RINGER'S 1,000 ML IV ONE (22:27)
[2019-11-18 08:17] LABS: Hematocrit (blood only) 36.8 % (37-47); Hemoglobin 12.3 g/dL (12.0-16.0); Mean Corpuscular Hemoglobin 31.2 pg (25-34); Mean Corpuscular Hgb Conc 33.4 g/dL (32-36); Mean Corpuscular Volume 93.4 fL (80-100); RDW Coefficient of Variation 15.7 % (11.5-14.5); RDW Standard Deviation 53.7 fL (36.4-46.3); Red Blood Count 3.94 M/uL (4.2-5.4); White Blood Count 2.62 K/uL (4.8-10.8)
[2019-11-18 08:18] LABS: Mean Platelet Volume 9.8 fL (7.4-10.4); Platelet Count 72 K/uL (130-400)
[2019-11-18 08:47] LABS: Basophils # (auto) 0.01 K/uL (0-0.2); Basophils % (auto) 0.4 %; Eosinophils # (auto) 0.07 K/uL (0-0.5); Eosinophils % (auto) 2.7 %; Immature Granulocytes # (auto) 0.01 K/uL (0.00-0.02); Immature Granulocytes % (auto) 0.4 %; Lymphocytes # (auto) 1.09 K/uL (1.2-3.4); Lymphocytes % (auto) 41.6 %; Monocytes # (auto) 0.51 K/uL (0.11-0.59); Monocytes % (auto) 19.5 %; Neutrophils # (auto) 0.93 K/uL (1.4-6.5); Neutrophils % (auto) 35.4 %
[2019-11-18 08:52] LABS: BUN Creatinine Ratio 5.3 (10-20); Calcium 9.5 mg/dl (8.5-10.1); Creatinine Clr Calc Pharmacy 119.9 ml/min; Est GFR (African American) 142.7; Est GFR (Non-African American) 123.2; Potassium 4.2 mmol/L (3.5-5.1)
[2019-11-18] MEDS: ONDANSETRON INJ 2 MG/ML 2 ML VIAL IV PRN (08:53)
[2019-11-18] MEDS: THIAMINE HCL 100 MG TAB PO SCH (08:55)
[2019-11-18] MEDS: POTASSIUM CHLORIDE 20 MEQ TABCR PO SCH (08:55)
[2019-11-18] MEDS: FOLIC ACID 1 MG TAB PO SCH (08:55)
[2019-11-18] MEDS: MULTIVITAMIN TAB PO SCH (08:55)
[2019-11-18] MEDS: LORazepam 1 MG TAB PO PRN (08:55)
[2019-11-18] MEDS: PANTOprazole 40 MG in SYRINGE 0 ML IV SCH (09:01)
--- NOTE | 2019-11-18 09:27 | Hospitalist Progress Note ---
Date of Service November 18, 2019 Assessment & Plan (1) Abdominal pain: Possible UGIB secondary to Alcoholic Gastritis Recurrent alcoholic pancreatitis, recurrent admissions/ER visits for abdominal pain in the setting of repeated alcohol intake --Hemoglobin stable 11-12 changed protonix IV to PO diet advanced to soft, tolerating well GI consulted, appreciate recommendations PRN low-dose Dilaudid and oxycodone with holding parameters -- stable overall no GI symptoms continue Protonix 40mg po x 2 weeks ff up with PCP this week Status post fall --Mechanical CT head, no acute process No other symptoms -- no problems ambulating Alcohol withdrawal --No signs of DTs --Monitor LFTs--> stable completed gabapentin protocol, and PRN Ativan Alcohol rehab encouraged, but patient declined strongly emphasized alcohol cessation, also no smoking or illicit drugs, risks involved discussed including liver failure, organ damage, etc. patient verbalized understanding and agreement Hypokalemia, Magnesemia - replaced Anxiety/mood disorder, at baseline --Denies depression or suicidal ideation --Psych consulted for anxiety recommend Vistaril 25mg po HS for insomnia, can order another 25mg 1 hour later if still with insomnia -- recommend close outpatient ff up with patient's regular psychiatrist patient reports she has an appointment with her psychiatrist December 06, strongly encouraged close follow up with her psychiatrist Ongoing tobacco abuse -- counseling Chronic thrombocytopenia, Neutropenia -- likely secondary to Alcoholism --Platelet count 72k, no bleeding WBC 2.62, ANC 930 Continue to monitor -- peripheral smear: pending -- repeat CBC on ff up with PCP this week, then regularly DVT prophylaxis. SCDs RE UGIB Full code Disposition d/c home Patient encouraged to undergo alcohol rehabilitation directly from hospital Reports that she needs to establish her apartment before going to alcohol rehab Plan of care discussed with patient in detail All questions were answered She is understanding, agreeable, comfortable plan of care ff up with PCP this wee, clinic to call patient tomorrow as [facility] is closed ff up with Psych December 06 as scheduled Admission and Anticipated Discharge Date Admission Date: November 14, 2019 Subjective ff up for hematemesis, alcohol withdrawal seen resting in bed, comfortable, in good spirits, having breakfast ANNETTE Mitchell at bedside through whole encounter states she feels much better overall no abdominal pain, very little nausea, resolving, tolerating regular diet well (+)BMs, no melena/hematochezia, hematemesis no chest pain, dyspnea, headaches has mild anxiety- chronic as per patient, but no depression, suicidal ideations no other symptoms states she is ready and would like to be discharged today Review of Systems Review of Systems: All systems reviewed & are unremarkable except as noted in HPI & below Physical Exam Physical Exam: General- oriented x 3, not in distress, speaks in sentences with no effort or accessory muscle use Eyes- anicteric Neck- no JVD Lungs- clear BS BL Heart- normal rate, regular rhythm; no murmurs Abdomen- normal bowel sounds, nondistended, soft, nontender Extremities- no pretibial edema, no calf tenderness no tremors Neuro- alert, oriented x 3; no gross focal neurologic deficits Skin- warm & dry Results & Data Results & Data ([facility]) Vital Signs (Past 12 Hours) Vital Signs Temp Pulse Pulse Resp BP Pulse Ox 11/18/19 07:39 36.8 C 92 H 20 118/80 95 11/18/19 03:40 36.6 C 92 H 18 108/76 95 11/18/19 01:22 80 11/17/19 23:23 36.7 C 88 20 110/75 98 Laboratory Results Laboratory Results - last 24 hr 11/17/19 11/17/19 11/18/19 07:07 13:21 07:53 WBC 2.62 L RBC 3.94 L Hgb 12.3 Hct 36.8 L MCV 93.4 MCH 31.2 MCHC 33.4 RDW Std Deviation 53.7 H RDW Coeff of Nayana 15.7 H Plt Count 72 L MPV 9.8 Immature Gran % (Auto) 0.4 Neut % (Auto) 35.4 Lymph % (Auto) 41.6 [place] % (Auto) 19.5 Eos % (Auto) 2.7 Baso % (Auto) 0.4 Neut # (Auto) 0.93 L* Lymph # (Auto) 1.09 L [place] # (Auto) 0.51 Eos # (Auto) 0.07 Baso # (Auto) 0.01 Immature Gran # (Auto) 0.01 Peripher Smr Path Cons Pending Sodium Potassium Chloride Carbon Dioxide Anion Gap BUN Creatinine Est Cr Clr Drug Dosing Est GFR ( Amer) Est GFR (Non-Af Amer) BUN/Creatinine Ratio Glucose Calcium Folate > 24.00 11/18/19 07:53 WBC RBC Hgb Hct MCV MCH MCHC RDW Std Deviation RDW Coeff of Nayana Plt Count MPV Immature Gran % (Auto) Neut % (Auto) Lymph % (Auto) [place] % (Auto) Eos % (Auto) Baso % (Auto) Neut # (Auto) Lymph # (Auto) [place] # (Auto) Eos # (Auto) Baso # (Auto) Immature Gran # (Auto) Peripher Smr Path Cons Sodium 138 Potassium 4.2 D Chloride 107 Carbon Dioxide 25 Anion Gap 6.0 BUN 3 L Creatinine 0.64 Est Cr Clr Drug Dosing 119.9 Est GFR ( Amer) 142.7 Est GFR (Non-Af Amer) 123.2 BUN/Creatinine Ratio 5.3 L Glucose 93 Calcium 9.5 Folate
[2019-11-18] MEDS ORDERED: GABAPENTIN 600 MG TAB PO SCH (10:29)
--- NOTE | 2019-11-18 10:41 | Psychiatric Consultation ---
Date of Consultation November 18, 2019 Impression / Recommendations Impression 24 yo female with ETOH use disorder and baseline non-specific anxiety. She has misused prescription medications/controlled substances in past. Plan: avoid benzos for anxiety, would not use neurontin other than detox no indication for inpatient psychiatric hospitalization she is declining more intensive D&A services at this time as her ultimate plan is for rehab encouraged to keep appt with Dr. Mcleod if demanding prn at discharge, Vistaril 25 mg q6 prn has low abuse potential, can cause combined sedation. Risk Factors Assessment Do You Have Access To A Gun?: No Psych History Identifying Data 24 yo female admit 11/13 with recurrent ETOH induced pancreatitis, last seen by psych consult service on 10/08. Chief Complaint "yeah I'm out of here, once I get my stuff together later this month I'm going to rehab, have to finish out my lease". History of Present Illness Essentially same presentation as last time. Not particularly cooperative with liaison assessment as crying/overwhelmed wanting more Ativan. Hydroxyzine prn was increased from 10 mg to 25 mg prn at my suggestion after review of chart as not appropriate for benzos or starting new meds given level of ETOH abuse/GI dis tress. Patient also became upset about peches on her tray when ordered pineapple and soon after threatened to leave AMA so she could go home and use medical MJ as "only thing that works". Yesterday stated she did not want to continue care with Dr. Mcleod, today states she does plan to keep her appointment later this month. She does not want assistance in locating rehab services, "I know what to do when I have money together". Apparently she has abused neurontin in past by outpatient psychiatrist and will not be prescribed controlled substances. She is not able to tell me why Cymbalta stopped between last admission and today. Past Psychiatric History Previous Psych History: [facility] 03/03-06/04 for narcotic meds Current Psychiatric Diagnosis: unspecified anxiety Outpatient Services: [facility] Do You Have Access To A Gun?: No History of Previous Suicide Attempt: No Allergies Allergy/AdvReac Type Severity Reaction Status Date / Time amairani Allergy Mild GUMS SWELL Verified 10/30/19 22:47 mushroom Allergy Mild GUMS SWELL Verified 10/30/19 22:47 Home Medications Home Medications Medication Instructions Recorded Confirmed Type multivitamin 1 tab PO DAILY 09/24/18 11/14/19 History melatonin 5 mg PO HS PRN 11/14/19 11/14/19 History pantoprazole [Protonix] 40 mg PO DAILY #14 tab 11/18/19 Rx Family History mo heroin, fa ETOH Personal History Born In: [place], eventually moved to [place] with her mother Highest Grade Completed: High School Graduate Beliefs That Will Affect Care: None History of Legal Problems: denied Psychological Trauma History Comment: has "seen people ", didn't elaborate Patient History Medical History Alcohol withdrawal (Acute) Anemia Hypokalemia Mood disorder (Acute) Polysubstance abuse Recurrent pancreatitis (Acute) Thrombocytopenia (Acute) Surgical History History of orthopedic surgery Family History Other No significant family history Social History Preferred Language: [place] Communication Ability: Effective Certification And Selection Specialist Required: No Beliefs That Will Affect Care: None marital status: Single Current Living Situation: Other Current Living Situation Comment: roomate Feels Safe at Home: Yes Smoking Status: Current every day smoker Tobacco Type: cigarettes ; Cigarettes Per Day: 20 ; Second Hand Exposure: No ; Hx Alcohol Use: Yes Alcohol type: beer Hx Substance Use: Yes substance use type: marijuana Last Used Substance: Hours (ago) Physical Exam Psychiatric: Orientation: alert Apperance: appeared stated age Eye Contact: + fair eye contact some restlessness Speech: normal rate/rhythm/volume of speech Affect: euthymic affect Mood: + anxious mood Thought Process: linear/logical thought process Thought Content: reality based without delusions Suicidal Thoughts: denies suicidal thoughts Homicidal Thoughts: denies homicidal thoughts Hallucinations: no auditory hallucinations and no visual hallucinations Vital Signs (Past 24 Hours): Last Vital Signs Temp 36.8 C 11/18/19 10:16 Pulse 113 H 11/18/19 10:16 Resp 20 11/18/19 10:16 BP 118/80 11/18/19 10:16 Pulse Ox 95 11/18/19 10:16 Review of Systems All systems reviewed & are unremarkable except as noted in HPI & below Results & Data ([facility]) Medications Administered Acetaminophen (Tylenol) 325 mg PO Q6H PRN PRN Reason: Mild Pain Stop: 12/14/19 22:08 Last Admin: 11/14/19 23:03 Dose: 325 mg Documented by: [id number] Folic Acid (Folvite) 1 mg PO QAM CHUN Stop: 12/15/19 08:59 Last Admin: 11/18/19 08:55 Dose: 1 mg Documented by: [id number] Admin: 11/17/19 07:43 Dose: 1 mg Documented by: [id number] Admin: 11/16/19 07:43 Dose: 1 mg Documented by: [id number] Admin: 11/15/19 07:17 Dose: 1 mg Documented by: [id number] Hydroxyzine HCl (Vistaril) 25 mg PO HS PRN PRN Reason: Insomnia Stop: 12/17/19 18:00 Last Admin: 11/17/19 21:49 Dose: 25 mg Documented by: [id number] Promethazine HCl 12.5 mg/ (Sodium Chloride) 50.5 mls @ 202 mls/hr IV Q6H PRN PRN Reason: Nausea And Vomiting Stop: 12/15/19 00:03 Last Infusion: 11/15/19 02:03 Dose: 0 mls/hr Documented by: [id number] Admin: 11/15/19 01:21 Dose: 202 mls/hr Documented by: [id number] Pantoprazole Sodium 40 mg/ (Syringe) 10 mls @ 5 mls/min IV BID [facility] Stop: 12/15/19 08:59 Last Admin: 11/18/19 09:01 Dose: 5 mls/min Documented by: [id number] Admin: 11/17/19 21:20 Dose: 5 mls/min Documented by: [id number] Admin: 11/17/19 07:47 Dose: 5 mls/min Documented by: [id number] Admin: 11/16/19 20:17 Dose: 5 mls/min Documented by: [id number] Admin: 11/16/19 07:46 Dose: 5 mls/min Documented by: [id number] Admin: 11/15/19 20:44 Dose: 5 mls/min Documented by: [id number] Admin: 11/15/19 08:46 Dose: 5 mls/min Documented by: [id number] Ioversol (Optiray 320 100ml) 93 ml IV ONCE PRN PRN Reason: Interaction Checking Stop: 11/21/19 05:23 Last Admin: 11/17/19 05:25 Dose: 1 ml Documented by: [id number] Lorazepam (Ativan) 1 - 3 mg PO UD PRN; Protocol PRN Reason: EtoH Withdrawal AWSS 6-10+ Stop: 12/17/19 13:41 Last Admin: 11/18/19 08:55 Dose: 1 mg Documented by: [id number] Admin: 11/17/19 19:44 Dose: 1 mg Documented by: [id number] Admin: 11/17/19 16:42 Dose: 1 mg Documented by: [id number] Multivitamins (Multivitamin Tab) 1 tab PO DAILY CHUN Stop: 12/15/19 08:59 Last Admin: 11/18/19 08:55 Dose: 1 tab Documented by: [id number] Admin: 11/17/19 07:43 Dose: 1 tab Documented by: [id number] Admin: 11/16/19 07:44 Dose: 1 tab Documented by: [id number] Admin: 11/15/19 07:18 Dose: 1 tab Documented by: [id number] Ondansetron HCl (Zofran) 4 mg IV Q6H PRN PRN Reason: Nausea Stop: 12/15/19 12:32 Last Admin: 11/18/19 08:53 Dose: 4 mg Documented by: [id number] Admin: 11/16/19 14:25 Dose: 4 mg Documented by: [id number] Admin: 11/15/19 14:09 Dose: 4 mg Documented by: [id number] Oxycodone HCl (Roxicodone Immediate Rel) 5 mg PO Q4H PRN PRN Reason: Pain Stop: 11/28/19 22:08 Last Admin: 11/17/19 07:42 Dose: 5 mg Documented by: [id number] Admin: 11/17/19 01:55 Dose: 5 mg Documented by: [id number] Admin: 11/16/19 21:03 Dose: 5 mg Documented by: [id number] Admin: 11/16/19 16:16 Dose: 5 mg Documented by: [id number] Admin: 11/16/19 10:35 Dose: 5 mg Documented by: [id number] Admin: 11/16/19 06:19 Dose: 5 mg Documented by: [id number] Admin: 11/16/19 02:13 Dose: 5 mg Documented by: [id number] Admin: 11/15/19 21:53 Dose: 5 mg Documented by: [id number] Admin: 11/15/19 12:09 Dose: 5 mg Documented by: [id number] Admin: 11/15/19 07:15 Dose: 5 mg Documented by: [id number] Potassium Chloride (Klor-Con M20) 40 meq PO BID CHUN Stop: 12/17/19 12:44 Last Admin: 11/18/19 08:55 Dose: 40 meq Documented by: [id number] Admin: 11/17/19 21:19 Dose: 40 meq Documented by: [id number] Admin: 11/17/19 13:46 Dose: 40 meq Documented by: [id number] Thiamine HCl (Vitamin B-1) 100 mg PO QAM CHUN Stop: 12/15/19 00:14 Last Admin: 11/18/19 08:55 Dose: 100 mg Documented by: [id number] Admin: 11/17/19 07:43 Dose: 100 mg Documented by: [id number] Admin: 11/16/19 07:43 Dose: 100 mg Documented by: [id number] Admin: 11/15/19 07:18 Dose: 100 mg Documented by: [id number] Admin: 11/15/19 01:21 Dose: 100 mg Documented by: [id number] Coding Level of Care Code 58015 [facility] Intl Hosp Care Lvl 2
[2019-11-19 13:13] LABS: Codeine Urine NEGATIVE ng/mL (<50); Hydrocodone Urine NEGATIVE ng/mL (<50); Hydromor Urine NEGATIVE ng/mL (<50); Marijuana Quant, GCMS Urine 65 ng/mL (<5); Morphine Urine 420 ng/mL (<50); Norhydrocodone Conf Ur NEGATIVE ng/mL (<50); Noroxycodone Urine 232 ng/mL (<50); Oxycodone Urine 158 ng/mL (<50); Oxymorph Urine 256 ng/mL (<50)
--- NOTE | 2019-11-21 14:39 | Discharge Summary ---
Date of Service November 21, 2019 Admission HPI Per Admitting Provider History obtained from patient and records. Medical history significant for anxiety/mood disorder, ongoing tobacco/alcohol abuse, recurrent pancreatitis, chronic thrombocytopenia. Recent confinement October [id number] recurrent pancreatitis. Two ER visits last month for abdominal pain. This morning patient noted achy epigastric pain followed by hematemesis. No chest pain, no S OB. Loose stools, not black/not bloody as per patient. No fever, no chills. Admits to alcohol consumption because she was celebrating on occasion. Patient complaining that she cannot stop shaking at the ER. Medical History as above Surgical History : D&C Family History : Hypertension Personal/Social history : 5 cigarettes a day, daily EtOH intake the last week, currently unemployed Admission Exam Per Admitting Provider GENERAL: uncomfortable, tremulous, no respiratory distress SKIN: Pallor, warm HEENT: Pale palpebral conjunctivae, no ptosis, dry buccal mucosa NECK : Supple, no tenderness CHEST : Decreased breath sounds , no tenderness HEART : Tachycardic , no obvious murmurs ABDOMEN: Some distention, epigastric tenderness EXTREMITIES : No LE swelling/tenderness, no other conspicuous deformities noted NEUROLOGIC : Coherent, no facial asymmetry, tremulous, no other gross focality Principal Diagnosis Episode of Hematemesis, Acute Pancreatitis, Alcohol Withdrawal Discharge Exam General- oriented x 3, not in distress, speaks in sentences with no effort or accessory muscle use Eyes- anicteric Neck- no JVD Lungs- clear BS BL Heart- normal rate, regular rhythm; no murmurs Abdomen- normal bowel sounds, nondistended, soft, nontender Extremities- no pretibial edema, no calf tenderness no tremors Neuro- alert, oriented x 3; no gross focal neurologic deficits Skin- warm & dry Discharge Data Allergies Allergy/AdvReac Type Severity Reaction Status Date / Time amairani Allergy Mild GUMS SWELL Verified 10/30/19 22:47 mushroom Allergy Mild GUMS SWELL Verified 10/30/19 22:47 Consultations 11/14/19 21:37 ED Decision to Admit Stat 11/15/19 00:04 Consult Gastroenterology Routine 11/15/19 00:15 Consult Case Management - Discharge Planning Routine 11/15/19 08:36 Consult Gastroenterology Routine 11/17/19 13:06 Consult Psychiatry Routine Ordered Studies 11/14/19 19:05 CT abd pelvis IV con only Stat FINDINGS: The lung bases are clear. Diffuse fatty replacement of the liver. Pancreas is slightly bulky. This is similar as compared to the prior exam. No significant peripancreatic infiltrative changes at this time. Nonobstructive bowel pattern. Uterus is anteflexed. Her 2 cm ovarian follicular cysts bilaterally. Bladder is midline. Kidneys negative for hydronephrosis. IMPRESSION: 1. Slightly bulky appearance to the pancreas raising the possibility of residual low-grade pancreatitis. 2. This is unchanged compared to the prior study. 3. No evidence for peripancreatic infiltrative change, pseudocyst, abscess, or collection. 4. Small bilateral ovarian follicular cysts. 5. Study is otherwise negative. 11/16/19 09:22 CT head/brain wo con Stat Findings: Mild mucosal thickening within the paranasal sinuses. The mastoid air cells are clear. The calvarium and skull base are intact. The ventricles and sulci are within normal limits. There is no mass, hematoma, midline shift, or acute infarct. Impression: No acute intracranial abnormality. 11/17/19 05:18 CT abd pelvis IV con only Urgent FINDINGS: Lung bases are unremarkable. No pneumatosis, free air or portal venous gas is present. There is fatty infiltration of the liver. There is no biliary or pancreatic ductal dilatation. There is no peripancreatic or pericholecystic infiltration. Major vasculature is patent. The adrenal glands and kidneys are unremarkable. There is no evidence for a bowel obstruction. The appendix is unremarkable. Ovaries are not enlarged. There is no ascites. There is no fluid collection within the abdomen or pelvis. No lymphadenopathy is present. There is a skeletal structures are unremarkable. IMPRESSION: 1. No acute process within the abdomen or pelvis. 2. Fatty infiltration of the liver. Hospital Course (1) Abdominal pain: Possible UGIB secondary to Alcoholic Gastritis Recurrent alcoholic pancreatitis -- recurrent admissions/ER visits for abdominal pain in the setting of repeated alcohol intake --CT abdomen/pelvis: FINDINGS: The lung bases are clear. Diffuse fatty replacement of the liver. Pancreas is slightly bulky. This is similar as compared to the prior exam. No significant peripancreatic infiltrative changes at this time. Nonobstructive bowel pattern. Uterus is anteflexed. Her 2 cm ovarian follicular cysts bilaterally. Bladder is midline. Kidneys negative for hydronephrosis. IMPRESSION: 1. Slightly bulky appearance to the pancreas raising the possibility of residual low-grade pancreatitis. 2. This is unchanged compared to the prior study. 3. No evidence for peripancreatic infiltrative change, pseudocyst, abscess, or collection. 4. Small bilateral ovarian follicular cysts. 5. Study is otherwise negative. --Hemoglobin remained stable 11-12, Lipase within normal limits placed on bowel rest, IV LR changed protonix IV to PO diet advanced to soft, tolerating well GI consulted given PRN low-dose Dilaudid and oxycodone with holding parameters -- stable overall no GI symptoms continue Protonix 40mg po x 2 weeks ff up with PCP this week ff up fatty liver as outpatient Status post fall --Mechanical, occurred during admisison while getting up from the toilet CT head, no acute process No other symptoms -- no problems ambulating, neurologic symptoms Alcohol withdrawal --No signs of DTs --Monitored LFTs--> stable completed gabapentin protocol, and PRN Ativan Alcohol rehab encouraged, but patient declined strongly emphasized alcohol cessation, also no smoking or illicit drugs, risks involved discussed including liver failure, organ damage, etc. patient verbalized understanding and agreement Hypokalemia, Hypomagnesemia - replaced Anxiety/mood disorder --Denies depression or suicidal ideation --Psych consulted for anxiety recommend Vistaril 25mg po q6h PRN for anxiety -- recommend close outpatient ff up with patient's regular psychiatrist patient reports she has an appointment with her psychiatrist December 06, strongly encouraged close follow up with her psychiatrist Ongoing tobacco abuse -- counseling Chronic thrombocytopenia, Neutropenia -- likely secondary to Alcoholism --Platelet count 72k, no bleeding WBC 2.62, ANC 930 Continue to monitor -- peripheral smear: The clinical history (alcohol abuse, Reason for consult: neutropenia, thrombocytopenia), peripheral smear and associated CBC are reviewed. The smear shows normochromic, normocytic appearing erythrocytes without anisopoikilocytosis. Leukocytes are decreased in number. Lymphopenia and neutropenia are evident. Leukocyte morphology, including neutrophil morphology, is unremarkable. Platelets appear decreased in number and are morphologically unremarkable. I do not see any significant number of platelet clumps resulting in an artifactual thrombocytopenia. The associated CBC shows WBC 2.4, ALC 0.8, ANC 1.1 and 52,000 platelets. The main findings present are leukopenia and thrombocytopenia. No overt changes of a myelodysplasia are present. Alcohol abuse could potentially account for the peripheral blood findings. Clinical correlation is suggested. -- repeat CBC on ff up with PCP this week, then regularly Disposition d/c home Patient encouraged to undergo alcohol rehabilitation directly from hospital but declined Reports that she needs to establish her apartment before going to alcohol rehab Plan of care discussed with patient in detail All questions were answered She is understanding, agreeable, comfortable plan of care ff up with PCP this wee, clinic to call patient tomorrow as scheduling office is closed ff up with Psych December 06 as scheduled Total Time Total Time Spent Total Time Spent (In Minutes): > 30 m inutes Discharge Plan Discharge Items Patient Disposition: Home - Self-Care Reason For Visit: UGIB Discharge Diagnosis: ABDOMINAL PAIN, ACUTE ALCOHOLIC PANCREATITIS, POSSIBLE GASTRITIS Activity: Resume your previous activity Activity Comment: RESUME ACTIVITY GRADUALLY TOLERATED Lifting: Wait until after follow-up appointment Exercise/Sports: Wait until after follow-up appointment Driving/Machine Use: NO DRIVING UNTIL RE-EVALUATED AND ALLOWED BY PRIMARY CARE PHYSICIAN Non-emergency contact: Primary Care Provider Call non-emergency contact if: you have any medication questions, your symptoms worsen, your pain is not controlled, your pain is worsening, your pain is unusual for you, your pain is concerning for you and you have a fever Follow-up/Referrals: William Mullins MD [Primary Care Provider] - Diet: Regular, Low Fiber and Low Fat Addtl Attending Provider Instructions: YOUR NEW MEDICATION IS PROTONIX- TO REDUCE ACID IN YOUR STOMACH, HEAL GASTRITIS. TAKE THIS AT LEAST 30 MINUTES BEFORE BREAKFAST. DO NOT TAKE MEDICATIONS UNDER THE CLASS OF NSAIDS- EXAMPLES: IBUPROFEN, NAPROXEN, ETC. NO ALCOHOL, SMOKING, ILLICIT DRUGS. CALL PRIMARY CARE PHYSICIAN OR RETURN TO THE ER IMMEDIATELY IF WITH RECURRENCE OF SYMPTOMS, ABDOMINAL PAIN, NAUSEA/VOMITING, BLOODY OR BLACK VOMIT OR STOOLS, FEVER/CHILLS, ANY SIGNS OF BLEEDING, WORSENING DEPRESSION OR ANXIETY. YOUR WHITE BLOOD CELL COUNT IS LOW. YOUR INFECTION RISK IS HIGH. PLEASE STAY AWAY FROM PUBLIC PLACES, SICK INDIVIDUALS. IF YOU NEED TO GET OUTSIDE, ALWAYS WEAR A MASK. ALWAYS WASH YOUR HANDS THOROUGHLY WITH SOAP AND WATER. YOU SHOULD INFORM YOUR PHYSICIAN OR GO TO THE ER IMMEDIATELY IF YOU ARE HAVING FEVER, OR SIGNS OF INFECTION. FOLLOW UP WITH YOUR PRIMARY CARE PHYSICIAN THIS WEEK. THE CLINIC WILL BE CALLING YOU FOR AN APPOINTMENT SOON. FOLLOW UP WITH YOUR PSYCHIATRIST SCHEDULED. Pending Studies at Discharge: Yes Studies:: REPEAT BLOODWORK- COMPLETE BLOOD COUNT, BASIC METABOLIC PANEL, ON FOLLOW UP WITH YOUR PCP THIS WEEK Stand-Alone Forms: [facility], Smoking Cessation Medications and DC Order Prescriptions: New pantoprazole [Protonix] 40 mg tablet,delayed release (DR/EC) 40 mg PO DAILY Qty: 14 RF: 1 Continued multivitamin Tablet 1 tab PO DAILY RF: 0 melatonin 5 mg Tablet 5 mg PO HS PRN (Reason: Insomnia) RF: 0 Discontinued Sleep Aid (doxylamine) 25 mg Tablet 25 mg PO HS PRN (Reason: Insomnia) RF: 0 Discharge Orders: Discharge Order (Routine); Ordered 11/18/19 Ordered By: Rex Garsia Admission Data Admit Date/Time: 11/14/19 22:27 Attending Provider: Rex Garsia Admit Provider: Richar Daniels Primary Care Provider: William Mullins Other Providers: Richar Daniels ; Ramos Bustillos ; Kimberley Stafford ; Izabela Richardson ; Mari Grady ; Anton Reid ; Norma Alvarado ; Antwan Luna ; Amy Pedraza ; Akbar Mcneil ; Bear Bland ; Brionna Mcmanus ; Dixie Carrero ; Dinah Madison ; Brittney Mosquera ; Angel Roberson ; William Montemayor ; Cheryl Mchugh ; Earl Castillo ; Damon Leslie ; Ken Florian ; Lisa De La Rosa ; Levi Larose ; Moriah Gann ; Rochelle Ponce ; Rosaline Fitzgerald ; Sharda Mcclain ; Rayray Lynn I. ; Toña Camara ; Nata Michel ; Davina Bauman ; Ty Galicia S. Other Interventions: Discharge Summary Assessment (RN) Last Done: 11/18/19 10:16 DC Date/Time DO NOT enter until pt leaves facility: 11/18/19 11:15
== END 2019-11-18 11:15 | disposition home or self-care (01) ==
LOC: ED 18:22 → 2W 22:27 → INTOOBSV 22:27 → 2W 23:00

== ENCOUNTER 2019-12-08 02:47 | Observation (INO) ==
[2019-12-08] MEDS ORDERED: METOCLOPRAMIDE HCL INJ 5 MG/ML 2 ML VIAL IV STA (02:57)
[2019-12-08] MEDS ORDERED: SODIUM CHLORIDE 0.9% 1000ML 1,000 ML IV ONE ×2 (02:57→04:05)
[2019-12-08] MEDS ORDERED: DiphenhydrAMINE HCL 50 MG/ML VIAL IV STA (02:57)
[2019-12-08] MEDS ORDERED: CAPSAICIN CR 0.075% 60 GM TUBE EXT STA (02:58)
--- NOTE | 2019-12-08 03:15 | Emergency Department Note ---
History of Present Illness General Chief complaint: Illness Stated complaint: NAUSEA/VOMITING/SHORT OF BREATH/ABDOMINAL PAIN History of Present Illness Maximum Pain Intensity: 10 This 24-year-old presents to the ER complaining of nausea, vomiting and epigastric pain for the past day who was drinking alcohol last night who has a history of pancreatitis Location: Abdomen Quality: Painful Severity: Moderate Duration: tonight Timing: tonight Context: Symptoms persisted and patient came in Modifying factors: better with marijuana; worse with activity Patient has a history of pancreatitis. Symptoms are similar. She states she was drinking last night. Nothing today. Patient denies fever, chills, cough, congestion, flulike illness. No hematemesis. Home Medications Home Medications Medication Instructions Recorded Confirmed Type multivitamin 1 tab PO DAILY 09/24/18 12/08/19 History melatonin 5 mg PO HS PRN 11/14/19 12/08/19 History Unknown Control Pill 1 tab PO DAILY 12/08/19 12/08/19 History Allergies Allergy/AdvReac Type Severity Reaction Status Date / Time amairani Allergy Mild GUMS SWELL Verified 12/08/19 04:00 mushroom Allergy Mild GUMS SWELL Verified 12/08/19 04:00 Past Med/Surg History Medical History Alcohol withdrawal (Acute) Anemia Hypokalemia Mood disorder (Acute) Polysubstance abuse Recurrent pancreatitis (Acute) Thrombocytopenia (Acute) Surgical History History of orthopedic surgery Family History Other No significant family history Social History Smoking Status: Current every day smoker Tobacco Type: Cigarettes Cigarettes Per Day: 20; Second Hand Exposure: No; Hx Alcohol Use: Yes Alcohol type: beer Hx Substance Use: Yes Last Used Substance: Hours (ago) Last Used Substance Other:: 6/2 in the AM Preferred Language: Somali Communication Ability: Effective 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 Beliefs That Will Affect Care: None marital status: Single Current Living Situation: Other Current Living Situation Comment: roomate Feels Safe at Home: Yes Review of Systems A total of 10 systems reviewed and were otherwise negative Physical Exam Vital Signs Vital Signs - 24 hr 12/08/19 02:58 12/08/19 03:00 12/08/19 03:13 Temperature 36.6 C Temperature Source Oral Pulse Rate 96 H 105 H 91 H Pulse Rate [Left Finger] Pulse Rate from SpO2 Sensor 104 H 90 Respiratory Rate 16 25 H 13 Respiratory Effort / Characteristics Non-Labored Spontaneous Respiratory Depth Normal Blood Pressure 144/84 H 127/83 Blood Pressure [Right Arm] Blood Pressure Mean 104 92 Blood Pressure Mean [Right Arm] Blood Pressure Position Sitting Blood Pressure Position [Right Arm] Pulse Oximetry 99 99 99 Oxygen Delivery Method Room Air Sepsis Recent Fever Within 48 Hours No Sepsis New/Unexplained Change in Mental Status N/A Sepsis Action Taken by Nursing No Action Required 12/08/19 03:31 12/08/19 04:00 12/08/19 05:00 Temperature Temperature Source Pulse Rate 97 H 100 H Pulse Rate [Left Finger] Pulse Rate from SpO2 Sensor Respiratory Rate 37 H 13 Respiratory Effort / Characteristics Respiratory Depth Blood Pressure Blood Pressure [Right Arm] Blood Pressure Mean Blood Pressure Mean [Right Arm] Blood Pressure Position Blood Pressure Position [Right Arm] Pulse Oximetry 95 Oxygen Delivery Method Room Air Sepsis Recent Fever Within 48 Hours Sepsis New/Unexplained Change in Mental Status Sepsis Action Taken by Nursing 12/08/19 05:05 12/08/19 05:24 Temperature Temperature Source Pulse Rate 109 H Pulse Rate [Left Finger] 105 H Pulse Rate from SpO2 Sensor Respiratory Rate 18 18 Respiratory Effort / Characteristics Respiratory Depth Blood Pressure 124/73 Blood Pressure [Right Arm] 123/77 Blood Pressure Mean 77 Blood Pressure Mean [Right Arm] 92 Blood Pressure Position Blood Pressure Position [Right Arm] Sitting Pulse Oximetry 99 Oxygen Delivery Method Room Air Sepsis Recent Fever Within 48 Hours Sepsis New/Unexplained Change in Mental Status Sepsis Action Taken by Nursing VITALS: Vitals are noted on the nurse's note and reviewed by myself. Vital signs stable. GENERAL: White female with EtOH odor, in no acute distress, nondiaphoretic, well-developed well-nourished. SKIN: Capillary reflex less than 2 seconds. HEENT: Normocephalic. PERRLA. Mild conjunctival injection, EOMI. Nares patent. Mucous membranes mildly dry, neck is supple without nuchal rigidity. HEART: Regular rate and rhythm LUNGS: Clear to auscultation bilaterally without wheezes, rales or rhonchi. No retractions or accessory muscle use. ABDOMEN: Positive bowel sounds x 4. Normal tympanic percussion. Soft, tender to palpation epigastric region, George, without masses or organomegaly. Dover sign negative. No guarding or rebound tenderness. No CVA tenderness MUSCULOSKELETAL: No gross musculoskeletal defects. NEURO: Patient was alert and oriented to person place and time. No focal neurological deficits. Course Administered Medications Lactated Ringer's (Lr) 1,000 mls @ 999 mls/hr IV .Q1H1M ONE Stop: 12/08/19 05:54 Last Admin: 12/08/19 05:07 Dose: 999 mls/hr Documented by: [id number] Ioversol (Optiray 320 100ml) 93 ml IV ONCE PRN PRN Reason: Interaction Checking Stop: 12/12/19 05:13 Last Admin: 12/08/19 05:14 Dose: 1 ml Documented by: [id number] Discontinued Medications Capsaicin (Zostrix) 1 appln EXT NOW STA Stop: 12/08/19 02:59 Last Admin: 12/08/19 03:26 Dose: 1 appln Documented by: [id number] Dextrose (Dextrose 50%) Confirm Administered Dose 50 ml IV .STK-MED ONE Stop: 12/08/19 04:54 Last Admin: 12/08/19 05:07 Dose: 25 ml Documented by: [id number] Diphenhydramine HCl (Benadryl) 25 mg IV NOW STA Stop: 12/08/19 02:58 Last Admin: 12/08/19 03:25 Dose: 25 mg Documented by: [id number] Famotidine (Pepcid 20mg Iv Push) 20 mg IV ONE STA Stop: 12/08/19 03:45 Last Admin: 12/08/19 05:06 Dose: 20 mg Documented by: [id number] Sodium Chloride (Nss 1000ml) 1,000 mls @ 999 mls/hr IV .Q1H1M ONE Stop: 12/08/19 03:57 Last Admin: 12/08/19 03:25 Dose: 999 mls/hr Documented by: [id number] Sodium Chloride (Nss 1000ml) 1,000 mls @ 999 mls/hr IV .Q1H1M ONE Stop: 12/08/19 05:05 Last Admin: 12/08/19 05:07 Dose: 999 mls/hr Documented by: [id number] Metoclopramide HCl (Reglan) 10 mg IV NOW STA Stop: 12/08/19 02:58 Last Admin: 12/08/19 03:26 Dose: 10 mg Documented by: [id number] Morphine Sulfate (Morphine Sulfate) 4 mg IV NOW STA Stop: 12/08/19 05:10 Last Admin: 12/08/19 05:25 Dose: 4 mg Documented by: [id number] Medical Decision Making Medical Records Attestation: I reviewed the patient's medical records. Home Medications Current Medication List: was personally reviewed by me Laboratory Data Attestation: I reviewed the patient's lab results. Result diagrams: 12/08/19 03:19 12/08/19 03:19 Lab Results 12/08/19 12/08/19 12/08/19 Range/Units 03:19 03:19 03:19 WBC 5.33 (4.8-10.8) K/uL RBC 4.28 (4.2-5.4) M/uL Hgb 13.3 (12.0-16.0) g/dL Hct 40.1 (37-47) % MCV 93.7 (80-100) fL MCH 31.1 (25-34) pg MCHC 33.2 (32-36) g/dL RDW Std Deviation 59.8 H (36.4-46.3) fL RDW Coeff of Nayana 17.6 H (11.5-14.5) % Plt Count 89 L (130-400) K/uL MPV 9.4 (7.4-10.4) fL Immature Gran % (Auto) 1.1 % Neut % (Auto) 58.1 % Lymph % (Auto) 34.0 % Lancaster % (Auto) 6.0 % Eos % (Auto) 0.4 % Baso % (Auto) 0.4 % Neut # (Auto) 3.10 (1.4-6.5) K/uL Lymph # (Auto) 1.81 (1.2-3.4) K/uL Lancaster # (Auto) 0.32 (0.11-0.59) K/uL Eos # (Auto) 0.02 (0-0.5) K/uL Baso # (Auto) 0.02 (0-0.2) K/uL Immature Gran # (Auto) 0.06 H (0.00-0.02) K/uL PT (9.0-12.0) Seconds INR (0.9-1.1) APTT (21.0-31.0) Seconds PTT Ratio Sodium 139 (136-145) mmol/L Potassium 3.9 (3.5-5.1) mmol/L Chloride 101 (98-107) mmol/L Carbon Dioxide 15 L (21-32) mmol/L Anion Gap 23.0 H (3-11) BUN 9 (7-18) mg/dl Creatinine 0.78 (0.6-1.2) mg/dl Est Cr Clr Drug Dosing 98.3 ml/min Est GFR ( Amer) 121.6 Est GFR (Non-Af Amer) 104.9 BUN/Creatinine Ratio 11.6 (10-20) Glucose 53 L* (70-99) mg/dl POC Glucose (70-99) mg/dl Calcium 9.4 (8.5-10.1) mg/dl Total Bilirubin 0.6 (0.2-1) mg/dl AST 123 H (15-37) U/L ALT 56 (12-78) U/L Alkaline Phosphatase 95 (45-117) U/L Total Protein 9.1 H (6.4-8.2) gm/dl Albumin 4.6 (3.4-5.0) gm/dl Globulin 4.5 H (2.5-4.0) gm/dl Albumin/Globulin Ratio 1.0 (0.9-2) Amylase 32 (25-115) U/L Lipase 75 (73-393) U/L HCG, Qual Negative (Negative) Ethyl Alcohol mg/dL (0-3) mg/dl 12/08/19 12/08/19 12/08/19 Range/Units 03:23 03:37 05:23 WBC (4.8-10.8) K/uL RBC (4.2-5.4) M/uL Hgb (12.0-16.0) g/dL Hct (37-47) % MCV (80-100) fL MCH (25-34) pg MCHC (32-36) g/dL RDW Std Deviation (36.4-46.3) fL RDW Coeff of Nayana (11.5-14.5) % Plt Count (130-400) K/uL MPV (7.4-10.4) fL Immature Gran % (Auto) % Neut % (Auto) % Lymph % (Auto) % Lancaster % (Auto) % Eos % (Auto) % Baso % (Auto) % Neut # (Auto) (1.4-6.5) K/uL Lymph # (Auto) (1.2-3.4) K/uL Lancaster # (Auto) (0.11-0.59) K/uL Eos # (Auto) (0-0.5) K/uL Baso # (Auto) (0-0.2) K/uL Immature Gran # (Auto) (0.00-0.02) K/uL PT 10.3 (9.0-12.0) Seconds INR 1.0 (0.9-1.1) APTT 20.2 L (21.0-31.0) Seconds PTT Ratio 0.7 Sodium (136-145) mmol/L Potassium (3.5-5.1) mmol/L Chloride (98-107) mmol/L Carbon Dioxide (21-32) mmol/L Anion Gap (3-11) BUN (7-18) mg/dl Creatinine (0.6-1.2) mg/dl Est Cr Clr Drug Dosing ml/min Est GFR ( Amer) Est GFR (Non-Af Amer) BUN/Creatinine Ratio (10-20) Glucose (70-99) mg/dl POC Glucose 139 H (70-99) mg/dl Calcium (8.5-10.1) mg/dl Total Bilirubin (0.2-1) mg/dl AST (15-37) U/L ALT (12-78) U/L Alkaline Phosphatase (45-117) U/L Total Protein (6.4-8.2) gm/dl Albumin (3.4-5.0) gm/dl Globulin (2.5-4.0) gm/dl Albumin/Globulin Ratio (0.9-2) Amylase (25-115) U/L Lipase (73-393) U/L HCG, Qual (Negative) Ethyl Alcohol mg/dL 260.0 H (0-3) mg/dl Imaging Data Attestation: I personally reviewed and interpreted this imaging study as follows: Blood Pressure Blood Pressure Findings: Elevated blood pressure Blood Pressure Disposition: Referred to patients primary care provider MDM Narrative Prior records/ancillary studies reviewed. Triage Nursing notes reviewed. Additional history obtained from EMS. The patient's history was concerning for abdominal pain. Differential diagnosis: Etiologies such as appendicitis, diverticulitis, PUD, biliary pathology, UTI, pancreatitis, obstruction, mesenteric ischemia, aortic pathology, infections, inflammatory bowel disease, renal colic, as well as others were entertained. Physical examination findings: As above. ER treatment provided: An order was placed for continuous cardiac monitoring. The monitor shows a rate of 60-1 10 with a normal sinus rhythm. IV fluids, Reglan, Benadryl, capsaicin cream, D50, LR, morphine On reassessment the patient felt better. Diagnostics interpreted by me: The labs revealed normal lipase. Negative hCG. Elevated alcohol Glucose was low and patient was given a half amp of D50 and repeat glucose is improved. Imaging studies: CT ABDOMEN & PELVIS With Contrast: Fatty infiltration of liver. No CT evidence of pancreatitis. The majority of the colon is collapsed. Appearance of mild diffuse wall thickening is likely due to nondistention. No abnormal fluid or regional inflammatory reaction. Radiologist: Cornelius Dc MD Consultation: A consultation was placed with Dr. Kuo. The case was discussed and diagnostics were reviewed. The patient was evaluated in the ER for further treatment. Exam and history seem consistent with alcoholic gastritis. Patient kept on v omiting. She was hydrated as above. Medicine was consulted. She will be evaluated for possible admission. By the evaluation outlined above emergent etiologies such as appendicitis, diverticulitis, biliary pathology, UTI, pancreatitis, obstruction, mesenteric ischemia, aortic pathology, infections, inflammatory bowel disease, renal colic, as well as others were deemed relatively unlikely. The pt informed about the findings as listed above. All questions were answered and pleased with the treatment. The chart was completed utilizing [employer] Speech voice recognition software. Grammatical errors, random word insertions, pronoun errors, and incomplete sentences are an occassional consequence of this system due to software limitations, ambient noise, and hardware issues. Any formal questions or concerns about the content, text, or information contained within the body of this dictation should be directly addressed to the physician animal care assistant for clarification. Impression & Plan Acute alcoholic gastritis, Nausea & vomiting, Acute dehydration Discharge Plan Visit Data Chief Complaint: Illness Stated Complaint: NAUSEA/VOMITING/SHORT OF BREATH/ABDOMINAL PAIN ED Provider: Page Ayers ED Midlevel Provider: Ankita Beasley Discharge Problem: Acute alcoholic gastritis, Nausea & vomiting, Acute dehydration Patient Disposition: Being Evaluated by Hospitalist Condition: Fair Forms Stand Alone Forms: [facility] Prescriptions Prescriptions: No Action multivitamin Tablet 1 tab PO DAILY RF: 0 melatonin 5 mg Tablet 5 mg PO HS PRN (Reason: Insomnia) RF: 0 Unknown Control Pill 1 tab PO DAILY RF: 0 Referrals Referrals: William Mullins MD [Primary Care Provider] - Discharge Problem: Acute alcoholic gastritis Qualifiers: Gastritis bleeding: presence of bleeding unspecified Qualified Code(s): K29.20 - Alcoholic gastritis without bleeding
[2019-12-08] MEDS ORDERED: FAMOTIDINE 20MG/5ML IV PUSH IV STA (03:44)
[2019-12-08 03:51] LABS: Hematocrit (blood only) 40.1 % (37-47); Hemoglobin 13.3 g/dL (12.0-16.0); Mean Corpuscular Hemoglobin 31.1 pg (25-34); Mean Corpuscular Hgb Conc 33.2 g/dL (32-36); Mean Corpuscular Volume 93.7 fL (80-100); RDW Coefficient of Variation 17.6 % (11.5-14.5); RDW Standard Deviation 59.8 fL (36.4-46.3); Red Blood Count 4.28 M/uL (4.2-5.4); White Blood Count 5.33 K/uL (4.8-10.8)
[2019-12-08 04:13] LABS: Partial Thromboplastin Ratio 0.7; Partial Thromboplastin Time 20.2 Seconds (21.0-31.0); Prothrombin Time 10.3 Seconds (9.0-12.0)
[2019-12-08 04:17] LABS: Pregnancy Test, Serum Negative (Negative)
[2019-12-08 04:32] LABS: Mean Platelet Volume 9.4 fL (7.4-10.4); Platelet Count 89 K/uL (130-400)
[2019-12-08 04:33] LABS: Albumin Level 4.6 gm/dl (3.4-5.0); BUN Creatinine Ratio 11.6 (10-20); Basophils # (auto) 0.02 K/uL (0-0.2); Basophils % (auto) 0.4 %; Bilirubin,Total 0.6 mg/dl (0.2-1); Calcium 9.4 mg/dl (8.5-10.1); Creatinine Clr Calc Pharmacy 98.3 ml/min; Eosinophils # (auto) 0.02 K/uL (0-0.5); Eosinophils % (auto) 0.4 %; Est GFR (African American) 121.6; Est GFR (Non-African American) 104.9; Globulin 4.5 gm/dl (2.5-4.0); Immature Granulocytes # (auto) 0.06 K/uL (0.00-0.02); Immature Granulocytes % (auto) 1.1 %; Lymphocytes # (auto) 1.81 K/uL (1.2-3.4); Monocytes # (auto) 0.32 K/uL (0.11-0.59); Neutrophils % (auto) 58.1 %; Potassium 3.9 mmol/L (3.5-5.1); Total Protein 9.1 gm/dl (6.4-8.2)
[2019-12-08] MEDS ORDERED: DEXTROSE 50% 50 ML SYRINGE IV ONE (04:53)
[2019-12-08] MEDS ORDERED: LACTATED RINGER'S 1,000 ML IV ONE (04:54)
[2019-12-08] MEDS ORDERED: MoRPHine SULFATE 4 MG/ML 1 ML CARP\\VIAL IV STA (05:09)
[2019-12-08] MEDS ORDERED: IOVERSOL 100ml IV PRN (05:14)
--- NOTE | 2019-12-08 07:16 | History and Physical Report ---
DATE OF ADMISSION: 12/08/2019 CHIEF COMPLAINT: Nausea, vomiting, and abdominal pain. HISTORY OF PRESENT ILLNESS: This is a 24-year-old female with past medical history significant for chronic alcohol abuse, recurrent admission for alcoholic gastritis and pancreatitis, history of thrombocytopenia, depression, history of cannabis abuse, who presents with nausea, vomiting and abdominal pain since yesterday. She says she vomited several episodes. She thinks she might have had blood in the vomitus and is having abdominal pain in the epigastric region and feeling shaky. Still drinking alcohol. She says last night she drank about half bottle of vodka. She is living with her friends. Denies any fever, chills. No loss of sense of smell or taste. No cough, no chest pain, no shortness of breath, no headache, no runny nose, no sore throat. Normal bowel and bladder movements. No rash seen. ALLERGIES: AMINATA, MUSHROOM. PAST MEDICAL HISTORY: As mentioned above. PAST SURGICAL HISTORY: induced by D and C. MEDICATIONS: Seems to be on control pill, melatonin 5 mg p.o. at bedtime p.r.n., multivitamins 1 tablet p.o. daily. FAMILY HISTORY: Significant for hypertension. SOCIAL HISTORY: As per records, 5 cigarettes a day. Daily alcohol use. Cannabis use. REVIEW OF SYSTEMS: As per HPI. Rest of the review of systems negative. PHYSICAL EXAMINATION: GENERAL: The patient is of moderate build, not in acute distress. VITAL SIGNS: Temperature 36.6, pulse 105, respiratory rate 18, blood pressure 123/77, oxygen 99% on room air. HEENT: No pallor, no icterus. Pupils equal, round, and reactive to light. Oral mucosa dry. NECK: No JVD, no neck masses. CARDIOVASCULAR: S1, S2 heard. Regular rate and rhythm, no murmur, no gallop. RESPIRATORY SYSTEM: Normal AP diameter. No accessory muscle use. No wheezing, no crackles. ABDOMEN: Soft, bowel sounds are present. Mild discomfort. No guarding. No rigidity. No distention. CENTRAL NERVOUS SYSTEM: Cranial nerves II-XII grossly intact, nonfocal. EXTREMITIES: No edema, no erythema. LABORATORY DATA: WBC 5.3, hemoglobin 13.3, hematocrit 40.1, platelets 89. PT 10.3, INR 1, APTT 20.2. Sodium 139, potassium 3.9, chloride 101, bicarbonate 15, BUN 9, creatinine 0.7, serum glucose 53, calcium 9.4, total bilirubin 0.6, AST 123, ALT 56, alkaline phosphatase 95, amylase 32, lipase 75. Beta hCG negative. Ethyl alcohol 260. IMAGING DATA: CT of abdomen and pelvis, preliminary report, fatty liver, no evidence of pancreatitis. ASSESSMENT AND PLAN: This is a 24-year-old female who presents with alcoholism, nausea, vomiting, abdominal pain. 1. Chronic alcoholism, recurrent admission for alcoholic gastritis and recurrent pancreatitis, still drinking ,alcohol level was 260, somewhat shaky. We will give banana bag, IV thiamine, IV folic acid. Alcohol withdrawal protocol with gabapentin, IV Ativan p.r.n. Monitor for withdrawal. Monitor in the [facility] tele. 2. Nausea, vomiting, abdominal pain, possibly secondary to alcoholic gastritis. CT scan at this point shows no pancreatitis. Question of hematemesis. Hemoglobin is stable. We will place on IV Protonix b.i.d., IV morphine p.r.n., n.p.o., IV fluids, and consult GI for further recommendations. 3. Chronic thrombocytopenia, mostly secondary to ongoing alcoholism. 4. Anion gap metabolic acidosis, mostly secondary to alcoholism. We will follow the labs. 5. History of anxiety and mood disorder. Needs followup with psychiatrist. 6. Ongoing tobacco abuse, needs counseling. DISPOSITION: Admit to [facility]. Level 1 full code. Expect to discharge home and follow with family doctor. WHIT
--- NOTE | 2019-12-08 08:25 | CT Scan Report ---
ABDOMEN AND PELVIS CT WITH IV CONTRAST CT DOSE: 281.20 mGy.cm HISTORY: Acute mid abdominal pain with history of acute pancreatitis mid abd pain, hx pancreatitis TECHNIQUE: Multiaxial CT images of the abdomen and pelvis were performed following the IV administrat ion of 93 cc of Optiray 320, A dose lowering technique was utilized adhering to the principles of AL JOÃO. COMPARISON STUDY: CT abdomen pelvis 11/17/2019 FINDINGS: The lung bases are clear. No pneumatosis or pneumoperitoneum. Imaged inferior cardiac chambers are un remarkable. There are a few calcified granulomata noted within the spleen. The pancreas is unremarkab le. No evidence of acute pancreatitis. The adrenal glands are within normal limits. Mild gallbladder distention. Hepatic steatosis. Patency of the hepatic and portal veins. Unremarkable appearance of the kidneys. No obstructive uropathy. Urinary bladder is within normal beyer its. Uterus is positioned within the left hemipelvis. Follicular changes of the ovaries. Aorta and IV C are unremarkable. There is no adenopathy. There is no bowel obstruction. There is partial distention with wall thickening involving the majorit y of the colon. Terminal ileum is unremarkable. The appendix is noninflamed. No ascites or mesenteric inflammation. Soft tissues are within normal limits. Bones appear intact. IMPRESSION: 1. No CT evidence of acute pancreatitis. 2. Mild wall thickening throughout the majority of the colon is likely secondary to partial distentio n. A mild nonspecific colitis is considered less likely. 3. No bowel obstruction. Normal appendix. 4. Hepatic steatosis. ACT 112: Negative or not required by law. The above report was generated using voice recognition software. It may contain grammatical, syntax o r spelling errors. Electronically signed by: Jose Abraham M.D. 12/08/2019 8:24 AM
[2019-12-08] MEDS ORDERED: GABAPENTIN 1200MG ALCOHOL WITHDRAWAL LOAD PO STA (10:02)
[2019-12-08] MEDS ORDERED: NITROGLYCERIN SL 0.4 MG/TAB TAB SL PRN (10:02)
[2019-12-08] MEDS ORDERED: MULTI-VITAMIN INFUSION 10 ML, THIAMINE HCL 100 MG, FOLIC ACID 1 MG in SODIUM CHLORIDE 0... IV ONE (10:15)
[2019-12-08] MEDS: D5W AND NSS 1,000 ML IV SCH ×2 (10:24→20:01)
[2019-12-08] MEDS: ONDANSETRON INJ 2 MG/ML 2 ML VIAL IV PRN ×2 (10:25→16:27)
[2019-12-08] MEDS: LORazepam 1 MG/2 ML VIAL IV PRN ×5 (10:25→22:39)
[2019-12-08] MEDS: MoRPHine SULFATE 4 MG/ML 1 ML CARP\\VIAL IV PRN ×4 (10:25→22:34)
[2019-12-08] MEDS ORDERED: GABAPENTIN 600 MG TAB PO SCH (10:30)
[2019-12-08] MEDS: PANTOprazole 40 MG in SYRINGE 0 ML IV SCH ×2 (10:55→23:09)
[2019-12-08] MEDS: FOLIC ACID 1 MG in SYRINGE 9.8 ML IV SCH (10:55)
[2019-12-08] MEDS: MULTIVITAMIN TAB PO SCH (10:56)
[2019-12-08] MEDS: THIAMINE HCL 100 MG in SYRINGE 9 ML IV SCH (10:57)
[2019-12-08 13:35] LABS: Appearance Urine Clear (Clear); Bilirubin Urine Negative (Negative); Blood Urine Negative (Negative); Color Urine Yellow; Glucose Urine UA Negative (Negative); Ketones Urine 4+ (Negative); Leukocyte Esterase Urine Negative (Negative); Nitrite Urine Negative (Negative); Protein Urine Negative (Negative); Specific Gravity Urine 1.029 (1.000-1.030); Urobilinogen Urine Negative (Negative)
[2019-12-08 14:09] LABS: Amphetamines+Metham, Urine Neg (Neg); Barbiturates, Urine Neg (Neg); Benzodiazepine, Urine Neg (Neg); Cocaine, Urine Neg (Neg); MDMA (Ecstacy), Urine Neg (Neg); Methadone, Urine Neg (Neg); Opiate, Urine Pos (Neg); Phencyclidine, Urine Neg (Neg)
[2019-12-08] MEDS: GABAPENTIN 600 MG TAB PO SCH ×2 (16:24→23:10)
[2019-12-08] MEDS: OXYCODONE HCL IR 5 MG TAB (IMMEDIATE RELEASE) PO PRN (20:17)
--- NOTE | 2019-12-09 00:05 | Gastrointestinal Consultation ---
Date of Consultation December 09, 2019 Supervising Physician Co-Signing Physician Notes 24 yo fm admitted with nausea, vomiting, epigastric pain, in the setting of recent etoh use. ? hematemesis. 1. Hematemesis- no plans for an egd, ok to dc home on an oral PPI BID. Outpatient egd/eus has been being attempted to have been set up for her. 2. Adbominal pain- suspect she has alcoholic gastritis that will improve with alcohol cessation. Could consider carafate 1 gram qid on discharge, slight ast/alt elevation of 2:1 but not c/w severe alcholic hepatitis. If feeling better after IV hydration and IV PPI, ok to dc home from a gi perspective. History of Present Illness Reason for Consultation: Nausea/vomiting/epigastric pain ? hematmesis Requesting Physician: Dr. Kuo Attending Physician: Lamberto Garcia MD History of Present Illness 24 yo fm admitted through the er for nausea/vomiting, abdominal pain. ? hematemesis. History of alcohol use, drinking alcohol prior to admission. She had been followed by [facility] once before in house and then multiple attempts contact her to schedule an outpatient eus have been unsuccessful. Now admitted again. She was seen early this morning but sleeping, but no complaints when she aroused. She has been recieving IV fluids, a banana bag, and IV protonix. Per chart review- she has had alcoholic gastritis, no further hematemesis while here. Allergies Allergy/AdvReac Type Severity Reaction Status Date / Time amairani Allergy Mild GUMS SWELL Verified 12/08/19 04:00 mushroom Allergy Mild GUMS SWELL Verified 12/08/19 04:00 Home Medications Home Medications Medication Instructions Recorded Confirmed Type multivitamin 1 tab PO DAILY 09/24/18 12/08/19 History melatonin 5 mg PO HS PRN 11/14/19 12/08/19 History Unknown Control Pill 1 tab PO DAILY 12/08/19 12/08/19 History Patient History Medical History Alcohol withdrawal (Acute) Anemia Hypokalemia Mood disorder (Acute) Polysubstance abuse Recurrent pancreatitis (Acute) Thrombocytopenia (Acute) Surgical History History of orthopedic surgery Family History Other No significant family history Social History Smoking Status: Current every day smoker Tobacco Type: Cigarettes Cigarettes Per Day: 20; Second Hand Exposure: No; Hx Alcohol Use: Yes Alcohol type: beer Hx Substance Use: Yes Last Used Substance: Hours (ago) Last Used Substance Other:: / in the AM Preferred Language: Burundian Communication Ability: Effective 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 Beliefs That Will Affect Care: None marital status: Single Current Living Situation: Other Current Living Situation Comment: roomate Feels Safe at Home: Yes Safety Concerns: Feels Safe At This Time Review of Systems Review of Systems: All systems reviewed & are unremarkable except as noted in HPI & below Physical Exam Physical Exam: Sleepy, but slightly arousable Constitutional: WD/WN, vitals as above well developed and well nourished Gastrointestinal (Abdomen): normal bowel sounds, soft, nontender, no hepatosplenomegaly Skin: no rashes, warm and dry Results & Data ([facility]) Vital Signs (Past 12 Hours) Vital Signs Temp Pulse Resp BP Pulse Ox 12/08/19 22:00 36.7 C 102 H 20 119/78 98 12/08/19 19:00 37.0 C 108 H 20 111/72 98 12/08/19 15:53 36.6 C 96 H 17 106/70 98 12/08/19 14:32 36.6 C 82 22 113/76 98 Labs reviewed:AST 123 ALT 656 TB 0.6 Maddrey's is less than 32
[2019-12-09] MEDS: OXYCODONE HCL IR 5 MG TAB (IMMEDIATE RELEASE) PO PRN ×4 (02:43→22:23)
[2019-12-09] MEDS: LORazepam 1 MG/2 ML VIAL IV PRN ×8 (02:56→22:30)
[2019-12-09] MEDS: D5W AND NSS 1,000 ML IV SCH ×2 (03:04→11:18)
[2019-12-09] MEDS: MoRPHine SULFATE 4 MG/ML 1 ML CARP\\VIAL IV PRN ×5 (05:41→19:38)
[2019-12-09] MEDS: ONDANSETRON INJ 2 MG/ML 2 ML VIAL IV PRN ×2 (05:41→19:38)
[2019-12-09 05:43] LABS: Hematocrit (blood only) 35.2 % (37-47); Hemoglobin 11.5 g/dL (12.0-16.0); Mean Corpuscular Hemoglobin 30.1 pg (25-34); Mean Corpuscular Hgb Conc 32.7 g/dL (32-36); Mean Corpuscular Volume 92.1 fL (80-100); RDW Coefficient of Variation 17.7 % (11.5-14.5); RDW Standard Deviation 58.8 fL (36.4-46.3); Red Blood Count 3.82 M/uL (4.2-5.4); White Blood Count 3.47 K/uL (4.8-10.8)
[2019-12-09 05:44] LABS: Platelet Count 57 K/uL (130-400)
[2019-12-09] MEDS: GABAPENTIN 600 MG TAB PO SCH ×3 (05:50→22:25)
[2019-12-09 06:11] LABS: BUN Creatinine Ratio 3.7 (10-20); Blood Urea Nitrogen 2 mg/dl (7-18); Calcium 8.4 mg/dl (8.5-10.1); Carbon Dioxide 27 mmol/L (21-32); Chloride 105 mmol/L (98-107); Creatinine Clr Calc Pharmacy 139.5 ml/min; Est GFR (African American) > 150.0; Est GFR (Non-African American) 129.5; Glucose 104 mg/dl (70-99); Magnesium 1.4 mg/dl (1.8-2.4); Potassium 3.4 mmol/L (3.5-5.1); Sodium 139 mmol/L (136-145)
[2019-12-09 06:14] LABS: Basophils # (auto) 0.01 K/uL (0-0.2); Basophils % (auto) 0.3 %; Eosinophils # (auto) 0.06 K/uL (0-0.5); Eosinophils % (auto) 1.7 %; Immature Granulocytes # (auto) 0.01 K/uL (0.00-0.02); Immature Granulocytes % (auto) 0.3 %; Lymphocytes # (auto) 0.84 K/uL (1.2-3.4); Lymphocytes % (auto) 24.2 %; Monocytes # (auto) 0.31 K/uL (0.11-0.59); Monocytes % (auto) 8.9 %; Neutrophils # (auto) 2.24 K/uL (1.4-6.5); Neutrophils % (auto) 64.6 %
[2019-12-09] MEDS: MULTIVITAMIN TAB PO SCH (07:47)
[2019-12-09] MEDS: PANTOprazole 40 MG in SYRINGE 0 ML IV SCH (07:48)
[2019-12-09] MEDS: FOLIC ACID 1 MG in SYRINGE 9.8 ML IV SCH (07:49)
[2019-12-09] MEDS: THIAMINE HCL 100 MG in SYRINGE 9 ML IV SCH (07:49)
[2019-12-09] MEDS ORDERED: POTASSIUM PHOS 3 MMOL/1 ML INFUSION IV STA (10:55)
[2019-12-09] MEDS ORDERED: POTASSIUM PHOSPHATE 30 MMOL in SODIUM CHLORIDE 0.9% 500 ML IV ONE (11:30)
[2019-12-09] MEDS: MAGNESIUM SULFATE / D5W 1 GM/100 ML BAG IV SCH ×2 (13:03→14:11)
--- NOTE | 2019-12-09 14:56 | Hospitalist Progress Note ---
Date of Service December 09, 2019 Assessment & Plan (1) Acute alcoholic gastritis: Presented with acute epigastric pain with questionable hematemesis Still complains to have epigastric pain Appreciate GI input and recommendation Clinically repeat better today (2) Nausea & vomiting: As above Symptomatic management (3) Abdominal pain: Likely secondary to acute alcoholic gastritis (4) Alcohol withdrawal: History of alcohol abuse with recurrent admission due to withdrawal symptoms with history of recurrent pancreatitis Has significant tremors and unsteadiness on her feet We will continue gabapentin protocol (5) Alcohol abuse: Strongly advised to quit drinking alcohol Waiting to go to inpatient alcohol rehab (6) Electrolyte imbalance: Has severe electrolyte imbalance with hypo-kalemia, hypomagnesemia and hypophosphatemia We will supplement and monitor (7) Anxiety disorder: Continue current medications DVT prophylaxis SCDs due to low platelet Admission and Anticipated Discharge Date Admission Date: December 08, 2019 Subjective The patient was seen and examined in medical telemetry unit She complains to have increasing pain in the abdomen and tremors with unsteadiness when on her feet Denies any shortness of breath, chest pain and/or palpitation Complains of nausea as well Review of Systems Review of Systems: All systems reviewed and are unremarkable except as noted below Gastrointestinal: + abdominal pain, + bloating, + nausea and + vomiting Physical Exam Physical Exam: Lying in bed comfortably Constitutional: well developed, well nourished and + ill appearing; no acute distress Eyes: PERRL, conjunctivae normal, anicteric sclerae ENMT: external ear and nose normal, oropharynx normal Neck: trachea midline, no thyromegaly Respiratory: normal respiratory effort; no respiratory distress Auscultation: lungs clear to auscultation bilaterally Cardiovascular: Rate/Rhythm: regular rate and regular rhythm Heart Sounds: no murmur Gastrointestinal (Abdomen): Inspection/Auscultation: abdomen normal to inspection; abdomen not distended Percussion/Palpation: + abdomen tender (Epigastrium) and abdomen soft Musculoskeletal: No acute arthritis in any joints Neurologic: moves all extremities; no focal motor deficits Tremors involving bilateral outstretched hands Results & Data Results & Data ([facility]) Vital Signs (Past 12 Hours) Vital Signs Temp Pulse Pulse Resp BP BP Pulse Ox 12/09/19 11:53 36.8 C 112 H 17 129/88 97 12/09/19 07:39 37.1 C 78 17 112/74 99 12/09/19 07:29 90 Laboratory Results Short CBC 12/09/19 Range/Units 05:27 WBC 3.47 L (4.8-10.8) K/uL Hgb 11.5 L (12.0-16.0) g/dL Hct 35.2 L (37-47) % Plt Count 57 L (130-400) K/uL BMP 12/09/19 05:27 Sodium 139 Potassium 3.4 L Chloride 105 Carbon Dioxide 27 BUN 2 L D Creatinine 0.55 L Glucose 104 H Calcium 8.4 L Medications Administered Current Inpatient Medications Gabapentin (Neurontin) 600 mg PO Q8H CHUN Stop: 12/09/19 22:31 Last Admin: 12/09/19 05:50 Dose: 600 mg Documented by: Gabapentin (Neurontin) 600 mg PO Q12H CHUN Stop: 12/10/19 22:31 Gabapentin (Neurontin) 600 mg PO Q24H CHUN Stop: 12/11/19 22:31 Lorazepam (Ativan) 1 mg in 2 mls @ 2 mls/min IV ONE PRN; Protocol PRN Reason: EtoH Withdrawal AWSS 6-10 Stop: 01/07/20 10:01 Last Admin: 12/09/19 12:04 Dose: 2 mls/min Documented by: Folic Acid 1 mg/ Syringe 10 mls @ 5 mls/min IV QAM CHUN Stop: 01/07/20 10:29 Last Admin: 12/09/19 07:49 Dose: 5 mls/min Documented by: Dextrose/Sodium Chloride (D5w And Nss) 1,000 mls @ 125 mls/hr IV .Q8H CHUN Stop: 01/07/20 10:01 Last Admin: 12/09/19 11:18 Dose: 125 mls/hr Documented by: Pantoprazole Sodium 40 mg/ (Syringe) 10 mls @ 5 mls/min IV BID CHUN Stop: 01/07/20 10:29 Last Admin: 12/09/19 07:48 Dose: 5 mls/min Documented by: Thiamine HCl 100 mg/ Syringe 10 mls @ 2 mls/min IV QAM CHUN Stop: 01/07/20 10:29 Last Admin: 12/09/19 07:49 Dose: 2 mls/min Documented by: Magnesium Sulfate/Dextrose (Magnesium Sulfate / D5w) 1 gm in 100 mls @ 50 mls/hr IV Q2H CHUN Stop: 12/09/19 15:29 Last Admin: 12/09/19 14:11 Dose: 50 mls/hr Documented by: Potassium Phosphate 30 mmol/ (Sodium Chloride) 510 mls @ 88 mls/hr IV ONE ONE Stop: 12/09/19 17:17 Last Admin: 12/09/19 13:02 Dose: 88 mls/hr Documented by: Melatonin (Melatonin) 3 mg PO HSZ PRN; Protocol PRN Reason: Sleep Stop: 01/07/20 10:04 Morphine Sulfate (Morphine Sulfate) 3 mg IV Q3H PRN PRN Reason: Pain Stop: 12/22/19 10:01 Last Admin: 12/09/19 13:02 Dose: 3 mg Documented by: Multivitamins (Multivitamin Tab) 1 tab PO DAILY CHUN Stop: 01/07/20 10:29 Last Admin: 12/09/19 07:47 Dose: 1 tab Documented by: Nitroglycerin (Nitrostat) 0.4 mg SL UD PRN PRN Reason: Chest Pain Stop: 01/07/20 10:01 Ondansetron HCl (Zofran) 4 mg IV Q6H PRN PRN Reason: Nausea Stop: 01/07/20 10:01 Last Admin: 12/09/19 05:41 Dose: 4 mg Documented by: Oxycodone HCl (Roxicodone Immediate Rel) 5 mg PO Q6H PRN PRN Reason: Pain Stop: 12/22/19 20:05 Last Admin: 12/09/19 07:47 Dose: 5 mg Documented by: (1) Acute alcoholic gastritis Gastritis bleeding: presence of bleeding unspecified Qualified Code(s): K29.20 - Alcoholic gastritis without bleeding (2) Abdominal pain Abdominal location: epigastric Qualified Code(s): R10.13 - Epigastric pain
[2019-12-09] MEDS: SUCRALFATE 1 GM/10 ML UDC PO SCH ×2 (17:19→22:24)
[2019-12-09] MEDS: PANTOprazole 40 MG TAB PO SCH (22:26)
[2019-12-10] MEDS: MoRPHine SULFATE 4 MG/ML 1 ML CARP\\VIAL IV PRN ×7 (01:27→23:36)
[2019-12-10] MEDS: LORazepam 1 MG/2 ML VIAL IV PRN ×4 (01:41→17:07)
[2019-12-10] MEDS: OXYCODONE HCL IR 5 MG TAB (IMMEDIATE RELEASE) PO PRN ×3 (06:15→18:31)
[2019-12-10 08:28] LABS: Blood Urea Nitrogen < 1 mg/dl (7-18); Calcium 8.9 mg/dl (8.5-10.1); Carbon Dioxide 28 mmol/L (21-32); Chloride 103 mmol/L (98-107); Creatinine Clr Calc Pharmacy 159.8 ml/min; Est GFR (African American) > 150.0; Est GFR (Non-African American) 135.4; Glucose 86 mg/dl (70-99); Sodium 138 mmol/L (136-145)
[2019-12-10 08:29] LABS: Phosphorus 3.3 mg/dl (2.5-4.9)
[2019-12-10] MEDS: SUCRALFATE 1 GM/10 ML UDC PO SCH ×4 (08:44→20:18)
[2019-12-10] MEDS: MULTIVITAMIN TAB PO SCH (08:45)
[2019-12-10] MEDS: PANTOprazole 40 MG TAB PO SCH ×2 (08:45→20:18)
[2019-12-10] MEDS: THIAMINE HCL 100 MG in SYRINGE 9 ML IV SCH (08:46)
[2019-12-10] MEDS: FOLIC ACID 1 MG in SYRINGE 9.8 ML IV SCH (08:46)
[2019-12-10] MEDS ORDERED: POTASSIUM CHLORIDE 20 MEQ TABCR PO ONE (10:00)
[2019-12-10] MEDS: POTASSIUM CHLORIDE / WTR 10 MEQ/100 ML PLCT IV SCH ×2 (11:35→12:35)
[2019-12-10] MEDS: GABAPENTIN 600 MG TAB PO SCH ×2 (11:35→20:18)
[2019-12-10] MEDS: ONDANSETRON INJ 2 MG/ML 2 ML VIAL IV PRN (13:30)
--- NOTE | 2019-12-10 15:01 | Hospitalist Progress Note ---
Date of Service December 10, 2019 Assessment & Plan (1) Acute alcoholic gastritis: Presented with acute epigastric pain with questionable hematemesis Still complains to have epigastric pain Appreciate GI input and recommendation Clinically much better today Denies any nausea but he still has abdominal pain (2) Nausea & vomiting: As above Symptomatic management (3) Abdominal pain: Likely secondary to acute alcoholic gastritis (4) Alcohol withdrawal: History of alcohol abuse with recurrent admission due to withdrawal symptoms with history of recurrent pancreatitis Has significant tremors and unsteadiness on her feet We will continue gabapentin protocol Still has significant tremor and unsteadiness with gait (5) Alcohol abuse: Strongly advised to quit drinking alcohol Waiting to go to inpatient alcohol rehab Strongly advised to go to inpatient alcohol rehab (6) Electrolyte imbalance: Has severe electrolyte imbalance with hypo-kalemia, hypomagnesemia and hypophosphatemia We will supplement and monitor Will supplement potassium and monitor while in the hospital (7) Anxiety disorder: Continue current medications As a psychiatric before and will follow the recommendation DVT prophylaxis SCDs due to low platelet Admission and Anticipated Discharge Date Admission Date: December 08, 2019 Subjective The patient was seen and examined in medical telemetry unit She complains to have increasing pain in the abdomen and tremors with unsteadiness when on her feet Denies any shortness of breath, chest pain and/or palpitation Complains of nausea as well 12/10/2019 The patient was seen and examined in medical telemetry unit She remains very anxious and tremulous Complains of occasional hallucination Denies any nausea but has abdominal pain Review of Systems Review of Systems: All systems reviewed and are unremarkable except as noted below Gastrointestinal: + abdominal pain, + bloating, + nausea and + vomiting Physical Exam Physical Exam: Lying in bed very anxious and crying Constitutional: well developed, well nourished and + ill appearing; no acute distress Eyes: PERRL, conjunctivae normal, anicteric sclerae ENMT: external ear and nose normal, oropharynx normal Neck: trachea midline, no thyromegaly Respiratory: normal respiratory effort; no respiratory distress Auscultation: lungs clear to auscultation bilaterally Cardiovascular: Rate/Rhythm: regular rate and regular rhythm Heart Sounds: no murmur Gastrointestinal (Abdomen): Inspection/Auscultation: abdomen normal to inspection; abdomen not distended Percussion/Palpation: + abdomen tender (Epigastrium) and abdomen soft Neurologic: moves all extremities; no focal motor deficits Tremors involving the outstretched hands Results & Data Results & Data ([facility]) Vital Signs (Past 12 Hours) Vital Signs Temp Pulse Pulse Resp BP BP Pulse Ox 12/10/19 11:08 36.7 C 102 H 20 114/76 98 12/10/19 07:15 36.8 C 104 H 20 106/71 100 12/10/19 07:13 90 12/10/19 04:57 36.9 C 92 H 18 108/73 99 Laboratory Results [facility] 12/10/19 07:30 Sodium 138 Potassium 3.0 L Chloride 103 Carbon Dioxide 28 BUN < 1 L Creatinine 0.48 L Glucose 86 Calcium 8.9 Medications Administered Current Inpatient Medications Gabapentin (Neurontin) 600 mg PO Q12H CHUN Stop: 12/10/19 22:31 Last Admin: 12/10/19 11:35 Dose: 600 mg Documented by: Gabapentin (Neurontin) 600 mg PO Q24H CHUN Stop: 12/11/19 22:31 Lorazepam (Ativan) 1 mg in 2 mls @ 2 mls/min IV ONE PRN; Protocol PRN Reason: EtoH Withdrawal AWSS 6-10 Stop: 01/07/20 10:01 Last Admin: 12/10/19 11:28 Dose: 2 mls/min Documented by: Folic Acid 1 mg/ Syringe 10 mls @ 5 mls/min IV QAM CHUN Stop: 01/07/20 10:29 Last Admin: 12/10/19 08:46 Dose: 5 mls/min Documented by: Thiamine HCl 100 mg/ Syringe 10 mls @ 2 mls/min IV QAM CHUN Stop: 01/07/20 10:29 Last Admin: 12/10/19 08:46 Dose: 2 mls/min Documented by: Melatonin (Melatonin) 3 mg PO HSZ PRN; Protocol PRN Reason: Sleep Stop: 01/07/20 10:04 Morphine Sulfate (Morphine Sulfate) 3 mg IV Q3H PRN PRN Reason: Pain Stop: 12/22/19 10:01 Last Admin: 12/10/19 13:30 Dose: 3 mg Documented by: Multivitamins (Multivitamin Tab) 1 tab PO DAILY CHUN Stop: 01/07/20 10:29 Last Admin: 12/10/19 08:45 Dose: 1 tab Documented by: Nitroglycerin (Nitrostat) 0.4 mg SL UD PRN PRN Reason: Chest Pain Stop: 01/07/20 10:01 Ondansetron HCl (Zofran) 4 mg IV Q6H PRN PRN Reason: Nausea Stop: 01/07/20 10:01 Last Admin: 12/10/19 13:30 Dose: 4 mg Documented by: Oxycodone HCl (Roxicodone Immediate Rel) 5 mg PO Q6H PRN PRN Reason: Pain Stop: 12/22/19 20:05 Last Admin: 12/10/19 12:31 Dose: 5 mg Documented by: Pantoprazole Sodium (Protonix) 40 mg PO BID CHUN Stop: 01/08/20 20:59 Last Admin: 12/10/19 08:45 Dose: 40 mg Documented by: Sucralfate (Carafate) 1 gm PO ACHS CHUN Stop: 01/08/20 16:29 Last Admin: 12/10/19 11:36 Dose: 1 gm Documented by: (1) Acute alcoholic gastritis Gastritis bleeding: presence of bleeding unspecified Qualified Code(s): K29.20 - Alcoholic gastritis without bleeding (2) Abdominal pain Abdominal location: epigastric Qualified Code(s): R10.13 - Epigastric pain
[2019-12-10] MEDS: MELATONIN 3 MG TAB PO PRN (23:37)
[2019-12-11] MEDS: LORazepam 1 MG/2 ML VIAL IV PRN ×4 (01:18→18:21)
[2019-12-11] MEDS: OXYCODONE HCL IR 5 MG TAB (IMMEDIATE RELEASE) PO PRN ×3 (01:18→17:37)
[2019-12-11] MEDS: MoRPHine SULFATE 4 MG/ML 1 ML CARP\\VIAL IV PRN ×6 (03:49→22:24)
[2019-12-11] MEDS: SUCRALFATE 1 GM/10 ML UDC PO SCH ×4 (08:50→20:41)
[2019-12-11] MEDS: MULTIVITAMIN TAB PO SCH (08:50)
[2019-12-11] MEDS: THIAMINE HCL 100 MG in SYRINGE 9 ML IV SCH (08:50)
[2019-12-11] MEDS: PANTOprazole 40 MG TAB PO SCH ×2 (08:50→20:42)
[2019-12-11] MEDS: FOLIC ACID 1 MG in SYRINGE 9.8 ML IV SCH (08:50)
[2019-12-11 09:04] LABS: Blood Urea Nitrogen < 1 mg/dl (7-18); Calcium 9.6 mg/dl (8.5-10.1); Carbon Dioxide 26 mmol/L (21-32); Chloride 103 mmol/L (98-107); Creatinine Clr Calc Pharmacy 127.9 ml/min; Est GFR (African American) 145.8; Est GFR (Non-African American) 125.8; Glucose 94 mg/dl (70-99); Magnesium 1.9 mg/dl (1.8-2.4); Phosphorus 3.5 mg/dl (2.5-4.9); Potassium 3.3 mmol/L (3.5-5.1); Sodium 136 mmol/L (136-145)
[2019-12-11] MEDS ORDERED: POTASSIUM CHLORIDE 20 MEQ TABCR PO STA (09:51)
[2019-12-11] MEDS: POTASSIUM CHLORIDE / WTR 10 MEQ/100 ML PLCT IV SCH ×2 (11:02→12:41)
--- NOTE | 2019-12-11 12:19 | Hospitalist Progress Note ---
Date of Service December 11, 2019 Assessment & Plan (1) Acute alcoholic gastritis: Presented with acute epigastric pain with questionable hematemesis Still complains to have epigastric pain Appreciate GI input and recommendation Clinically much better today Denies any nausea but he still has abdominal pain (2) Nausea & vomiting: As above Symptomatic management Resolved (3) Abdominal pain: Likely secondary to acute alcoholic gastritis Still complains abdominal pain (4) Alcohol withdrawal: History of alcohol abuse with recurrent admission due to withdrawal sympto ms with history of recurrent pancreatitis Has significant tremors and unsteadiness on her feet We will continue gabapentin protocol Still has significant tremor and unsteadiness with gait Resting tremor of the outstretched hands is better in the gait remains unsteady Participating in PT and OT (5) Alcohol abuse: Strongly advised to quit drinking alcohol Waiting to go to inpatient alcohol rehab Strongly advised to go to inpatient alcohol rehab The patient is willing to go to inpatient alcohol rehab program but wants to be in the detox unit She has had experience in the past when she was admitted to be transferred from General unit to the detox unit She wants to go to detox unit and definitely not to generally need for rehab Social service notified (6) Electrolyte imbalance: Has severe electrolyte imbalance with hypo-kalemia, hypomagnesemia and hypophosphatemia We will supplement and monitor Will supplement potassium and monitor while in the hospital Still has hypokalemia-we will replace and recheck (7) Anxiety disorder: Continue current medications Has had prior psychiatric recent evaluation and recommendation Was advised to follow-up with the recommendations. DVT prophylaxis SCDs due to low platelet Admission and Anticipated Discharge Date Admission Date: December 08, 2019 Subjective The patient was seen and examined in medical telemetry unit She complains to have increasing pain in the abdomen and tremors with unsteadiness when on her feet Denies any shortness of breath, chest pain and/or palpitation Complains of nausea as well 12/10/2019 The patient was seen and examined in medical telemetry unit She remains very anxious and tremulous Complains of occasional hallucination Denies any nausea but has abdominal pain 12/11/2019 The patient was seen and examined in medical telemetry unit She remains stable with decreasing symptoms of withdrawal Still complains of abdominal pain without nausea and or vomiting Remains very very anxious Review of Systems Review of Systems: All systems reviewed and are unremarkable except as noted below Gastrointestinal: + abdominal pain, + bloating, + nausea and + vomiting Neurologic: + unsteadiness and + tremor(s) Physical Exam Physical Exam: Lying in bed very anxious and crying Constitutional: well developed, well nourished and + ill appearing; no acute distress Eyes: PERRL, conjunctivae normal, anicteric sclerae ENMT: external ear and nose normal, oropharynx normal Neck: trachea midline, no thyromegaly Respiratory: normal respiratory effort; no respiratory distress Auscultation: lungs clear to auscultation bilaterally Cardiovascular: Rate/Rhythm: regular rate and regular rhythm Heart Sounds: no murmur Gastrointestinal (Abdomen): Inspection/Auscultation: abdomen normal to inspection; abdomen not distended Percussion/Palpation: + abdomen tender (Epigastrium) and abdomen soft Musculoskeletal: No acute arthritis involving any joints Neurologic: moves all extremities; no focal motor deficits Alert awake and oriented x3 Psychiatric: Affect: + anxious affect Mood: + anxious mood and + irritable mood Results & Data Results & Data ([facility]) Vital Signs (Past 12 Hours) Vital Signs Temp Pulse Pulse Resp BP Pulse Ox 12/11/19 11:16 36.8 C 129 H 20 127/92 94 12/11/19 07:37 91 H 12/11/19 07:08 36.9 C 88 20 114/78 95 12/11/19 04:00 37.0 C 128 H 20 122/84 98 Laboratory Results [facility] 12/11/19 08:01 Sodium 136 Potassium 3.3 L Chloride 103 Carbon Dioxide 26 BUN < 1 L Creatinine 0.60 Glucose 94 Calcium 9.6 Medications Administered Current Inpatient Medications Gabapentin (Neurontin) [address] [facility] Stop: 12/11/19 22:31 Lorazepam (Ativan) 1 mg in 2 mls @ 2 mls/min IV ONE PRN; Protocol PRN Reason: EtoH Withdrawal AWSS 6-10 Stop: 01/07/20 10:01 Last Admin: 12/11/19 08:54 Dose: 2 mls/min Documented by: Folic Acid 1 mg/ Syringe 10 mls @ 5 mls/min IV QAM CHUN Stop: 01/07/20 10:29 Last Admin: 12/11/19 08:50 Dose: 5 mls/min Documented by: Thiamine HCl 100 mg/ Syringe 10 mls @ 2 mls/min IV QAM CHUN Stop: 01/07/20 10:29 Last Admin: 12/11/19 08:50 Dose: 2 mls/min Documented by: Melatonin (Melatonin) 3 mg PO HSZ PRN; Protocol PRN Reason: Sleep Stop: 01/07/20 10:04 Last Admin: 12/10/19 23:37 Dose: 3 mg Documented by: Morphine Sulfate (Morphine Sulfate) 3 mg IV Q3H PRN PRN Reason: Pain Stop: 12/22/19 10:01 Last Admin: 12/11/19 12:02 Dose: 3 mg Documented by: Multivitamins (Multivitamin Tab) 1 tab PO DAILY CHUN Stop: 01/07/20 10:29 Last Admin: 12/11/19 08:50 Dose: 1 tab Documented by: Nitroglycerin (Nitrostat) 0.4 mg SL UD PRN PRN Reason: Chest Pain Stop: 01/07/20 10:01 Ondansetron HCl (Zofran) 4 mg IV Q6H PRN PRN Reason: Nausea Stop: 01/07/20 10:01 Last Admin: 12/10/19 13:30 Dose: 4 mg Documented by: Oxycodone HCl (Roxicodone Immediate Rel) 5 mg PO Q6H PRN PRN Reason: Pain Stop: 12/22/19 20:05 Last Admin: 12/11/19 11:01 Dose: 5 mg Documented by: Pantoprazole Sodium (Protonix) 40 mg PO BID CHUN Stop: 01/08/20 20:59 Last Admin: 12/11/19 08:50 Dose: 40 mg Documented by: Sucralfate (Carafate) 1 gm PO ACHS CHUN Stop: 01/08/20 16:29 Last Admin: 12/11/19 11:04 Dose: 1 gm Documented by: (1) Acute alcoholic gastritis Gastritis bleeding: presence of bleeding unspecified Qualified Code(s): K29.20 - Alcoholic gastritis without bleeding (2) Abdominal pain Abdominal location: epigastric Qualified Code(s): R10.13 - Epigastric pain
[2019-12-11] MEDS ORDERED: ATIVAN IV ALCOHOL WITHDRAWL IV SCH (20:15)
[2019-12-11] MEDS ORDERED: LORAZEPAM 3MG IV ACTIVE PROTOCOL IV PRN (20:15)
[2019-12-11] MEDS: LORAZEPAM 2MG IV ACTIVE PROTOCOL IV PRN (20:41)
[2019-12-11] MEDS: MELATONIN 3 MG TAB PO PRN (22:25)
[2019-12-11] MEDS ORDERED: GABAPENTIN 600 MG TAB PO SCH (22:30)
[2019-12-12] MEDS: OXYCODONE HCL IR 5 MG TAB (IMMEDIATE RELEASE) PO PRN ×3 (01:46→18:35)
[2019-12-12] MEDS: MoRPHine SULFATE 4 MG/ML 1 ML CARP\\VIAL IV PRN ×5 (04:08→20:29)
[2019-12-12] MEDS: MULTIVITAMIN TAB PO SCH (08:12)
[2019-12-12] MEDS: SUCRALFATE 1 GM/10 ML UDC PO SCH ×4 (08:12→20:30)
[2019-12-12] MEDS: FOLIC ACID 1 MG in SYRINGE 9.8 ML IV SCH (08:12)
[2019-12-12] MEDS: THIAMINE HCL 100 MG in SYRINGE 9 ML IV SCH (08:12)
[2019-12-12] MEDS: PANTOprazole 40 MG TAB PO SCH ×2 (08:12→20:30)
[2019-12-12] MEDS: LORAZEPAM 1MG IV ACTIVE PROTOCOL IV PRN ×2 (08:46→11:20)
[2019-12-12 09:05] LABS: BUN Creatinine Ratio 1.6 (10-20); Calcium 9.5 mg/dl (8.5-10.1); Creatinine Clr Calc Pharmacy 125.8 ml/min; Est GFR (Non-African American) 125.1; Magnesium 1.8 mg/dl (1.8-2.4); Potassium 3.3 mmol/L (3.5-5.1)
[2019-12-12 09:12] LABS: Phosphorus 4.1 mg/dl (2.5-4.9)
[2019-12-12] MEDS ORDERED: POTASSIUM CHLORIDE 20 MEQ TABCR PO ONE (09:12)
[2019-12-12 10:08] LABS: Codeine Urine NEGATIVE ng/mL (<50); Hydrocodone Urine NEGATIVE ng/mL (<50); Hydromor Urine NEGATIVE ng/mL (<50); Marijuana Quant, GCMS Urine 2110 ng/mL (<5); Morphine Urine 6180 ng/mL (<50); Norhydrocodone Conf Ur NEGATIVE ng/mL (<50); Noroxycodone Urine NEGATIVE ng/mL (<50); Oxycodone Urine NEGATIVE ng/mL (<50); Oxymorph Urine NEGATIVE ng/mL (<50)
[2019-12-12] MEDS: LORAZEPAM 2MG IV ACTIVE PROTOCOL IV PRN ×2 (15:48→18:34)
--- NOTE | 2019-12-12 19:04 | Hospitalist Progress Note ---
Date of Service December 12, 2019 Assessment & Plan (1) Acute alcoholic gastritis: Patient presented with acute epigastric pain with questionable hematemesis --CT ABD:No CT evidence of acute pancreatitis. Mild wall thickening throughout the majority of the colon is likely secondary to partial distention. A mild nonspecific colitis is considered less likely. No bowel obstruction. Normal appendix. Hepatic steatosis. --Normal Lipase levels --Evaluated b GI --Continue Protonix, Carafate Counseled to quit alcohol use Pain control (? Abuse ) Tolerates diet Tobacco use disorder Nicotine patch (2) Nausea & vomiting: As above Symptomatic management (3) Abdominal pain: as above (4) Alcohol withdrawal: H/O recurrent admission due to alcohol withdrawal H/O Recurrent pancreatitis Continue alcohol withdrawal protocol continue thiamine, folic acid Plan to discharge to alcohol rehab facility when arranged (5) Alcohol abuse: Counseled to quit drinking Management as above (6) Electrolyte imbalance: Hypokalemia, hypomagnesemia, hypophosphatemia Replete electrolytes as needed Monitor (7) Anxiety disorder: Continue current medications Has had recently been evaluated by psychiatry DVT Px: SCDs Re: Thrombocytopenia Admission and Anticipated Discharge Date Admission Date: December 08, 2019 Subjective Patient is seen and examined at bedside Anxious and crying during my encounter States having abdominal discomfort Prefers to be discharged to detox rehab unit Denies chest pain, shortness of breath, dizziness Offers no other complaints Review of Systems Review of Systems: All systems reviewed & are unremarkable except as noted in HPI & below Physical Exam Physical Exam: Physical Exam: Vitals signs as noted above General Appearance:Moderately built and nourished, no apparent distress, Anxious Head: normocephalic, Atraumatic Eyes: normal inspection, EOMI Neck: supple, Trachea midline Respiratory/Chest: Normal breath sounds, CTA, No accessory muscle use Cardiovascular: S1, S2, No murmur, Sinus tachycardia Abdomen/GI:Soft, + epigastric tender, Bowel sounds present, No guarding/rigidity Extremities/Musculoskelatal:normal inspection, no edema Neurologic/Psych:AAOX3, grossly no focal neurological deficits Skin: normal color, warm Results & Data Results & Data ([facility]) Vital Signs (Past 12 Hours) Vital Signs Temp Pulse Pulse Resp BP Pulse Ox 12/12/19 15:12 36.9 C 110 H 18 106/72 99 12/12/19 11:39 36.6 C 107 H 18 108/74 94 12/12/19 07:36 98 H 12/12/19 07:28 36.7 C 133 H 20 106/[address] [facility] 12/12/19 08:04 Sodium 138 Potassium 3.3 L Chloride 104 Carbon Dioxide 26 BUN 1 L Creatinine 0.61 Glucose 92 Calcium 9.5 (1) Acute alcoholic gastritis Gastritis bleeding: presence of bleeding unspecified Qualified Code(s): K29.20 - Alcoholic gastritis without bleeding (2) Abdominal pain Abdominal location: epigastric Qualified Code(s): R10.13 - Epigastric pain
[2019-12-12] MEDS: MELATONIN 3 MG TAB PO PRN (20:29)
[2019-12-12] MEDS: NICOTINE 21 MG/24 HR TDSY TD SCH (20:30)
[2019-12-13] MEDS: MoRPHine SULFATE 4 MG/ML 1 ML CARP\\VIAL IV PRN ×2 (00:29→09:07)
[2019-12-13] MEDS: OXYCODONE HCL IR 5 MG TAB (IMMEDIATE RELEASE) PO PRN ×2 (07:52→18:01)
[2019-12-13] MEDS: SUCRALFATE 1 GM/10 ML UDC PO SCH ×4 (07:53→20:17)
[2019-12-13] MEDS: THIAMINE HCL 100 MG in SYRINGE 9 ML IV SCH (07:53)
[2019-12-13] MEDS: PANTOprazole 40 MG TAB PO SCH ×2 (07:53→20:17)
[2019-12-13] MEDS: MULTIVITAMIN TAB PO SCH (07:53)
[2019-12-13] MEDS: FOLIC ACID 1 MG in SYRINGE 9.8 ML IV SCH (07:53)
[2019-12-13 08:32] LABS: Hematocrit (blood only) 41.1 % (37-47); Hemoglobin 13.3 g/dL (12.0-16.0); Mean Corpuscular Hemoglobin 30.8 pg (25-34); Mean Corpuscular Hgb Conc 32.4 g/dL (32-36); Mean Corpuscular Volume 95.1 fL (80-100); RDW Coefficient of Variation 17.8 % (11.5-14.5); RDW Standard Deviation 62.2 fL (36.4-46.3); Red Blood Count 4.32 M/uL (4.2-5.4); White Blood Count 3.91 K/uL (4.8-10.8)
[2019-12-13 08:35] LABS: Mean Platelet Volume 9.2 fL (7.4-10.4); Platelet Count 81 K/uL (130-400)
[2019-12-13 09:03] LABS: Calcium 9.8 mg/dl (8.5-10.1); Creatinine Clr Calc Pharmacy 119.9 ml/min; Est GFR (African American) 142.7; Est GFR (Non-African American) 123.2; Potassium 3.6 mmol/L (3.5-5.1)
[2019-12-13] MEDS: ONDANSETRON INJ 2 MG/ML 2 ML VIAL IV PRN (09:11)
[2019-12-13] MEDS ORDERED: MoRPHine SULFATE 4 MG/ML 1 ML CARP\\VIAL IV PRN (12:04)
--- NOTE | 2019-12-13 18:25 | Hospitalist Progress Note ---
Date of Service December 13, 2019 Assessment & Plan (1) Acute alcoholic gastritis: Patient presented with acute epigastric pain with questionable hematemesis --CT ABD:No CT evidence of acute pancreatitis. Mild wall thickening throughout the majority of the colon is likely secondary to partial distention. A mild nonspecific colitis is considered less likely. No bowel obstruction. Normal appendix. Hepatic steatosis. --Normal Lipase levels --Evaluated by GI --Continue Protonix, Carafate Counseled to quit alcohol use Pain control (? Abuse ) Tolerates diet Minimize narcotic use Thrombocytopenia Likely secondary to alcohol use Monitor CBC No bleeding issues Tobacco use disorder Nicotine patch [employer] to quit (2) Nausea & vomiting: As above Symptomatic management (3) Abdominal pain: as above (4) Alcohol withdrawal: H/O recurrent admission due to alcohol withdrawal H/O Recurrent pancreatitis Continue alcohol withdrawal protocol continue thiamine, folic acid Plan to discharge to alcohol rehab facility when arranged (5) Alcohol abuse: Counseled to quit drinking Management as above (6) Electrolyte imbalance: Hypokalemia, hypomagnesemia, hypophosphatemia Replete electrolytes as needed Monitor (7) Anxiety disorder: Continue current medications Has had recently been evaluated by psychiatry DVT Px: SCDs Re: Thrombocytopenia Admission and Anticipated Discharge Date Admission Date: December 08, 2019 Subjective Patient is seen and examined at bedside No new complaints Waiting for placement States feeling anxious Denies chest pain, shortness of breath, dizziness Review of Systems Review of Systems: All systems reviewed & are unremarkable except as noted in HPI & below Physical Exam Physical Exam: Physical Exam: Vitals signs as noted above General Appearance:Moderately built and nourished, no apparent distress, Anxious Head: normocephalic, Atraumatic Eyes: normal inspection, EOMI Neck: supple, Trachea midline Respiratory/Chest: Normal breath sounds, CTA, No accessory muscle use Cardiovascular: S1, S2, No murmur, Sinus tachycardia Abdomen/GI:Soft, + epigastric tender, Bowel sounds present, No guarding/rigidity Extremities/Musculoskelatal:normal inspection, no edema Neurologic/Psych:AAOX3, grossly no focal neurological deficits Skin: normal color, warm Results & Data Results & Data ([facility]) Vital Signs (Past 12 Hours) Vital Signs Temp Pulse Pulse Resp BP BP Pulse Ox 12/13/19 16:44 81 12/13/19 15:27 37.0 C 110 H 18 114/77 97 12/13/19 11:29 36.7 C 103 H 18 119/68 99 12/13/19 07:38 84 12/13/19 07:08 36.6 C 97 H 18 115/74 100 Laboratory Results Short CBC 12/13/19 Range/Units 08:19 WBC 3.91 L (4.8-10.8) K/uL Hgb 13.3 (12.0-16.0) g/dL Hct 41.1 (37-47) % Plt Count 81 L (130-400) K/uL BMP 12/13/19 08:19 Sodium 139 Potassium 3.6 Chloride 105 Carbon Dioxide 27 BUN 3 L Creatinine 0.64 Glucose 116 H Calcium 9.8 (1) Acute alcoholic gastritis Gastritis bleeding: presence of bleeding unspecified Qualified Code(s): K29.20 - Alcoholic gastritis without bleeding (2) Abdominal pain Abdominal location: epigastric Qualified Code(s): R10.13 - Epigastric pain
[2019-12-13] MEDS ORDERED: Nursing to Pharmacy Communication SCH (19:15)
[2019-12-13] MEDS: NICOTINE 21 MG/24 HR TDSY TD SCH (20:17)
[2019-12-14] MEDS: OXYCODONE HCL IR 5 MG TAB (IMMEDIATE RELEASE) PO PRN ×2 (00:06→08:36)
[2019-12-14 08:23] LABS: BUN Creatinine Ratio 5.3 (10-20); Blood Urea Nitrogen 3 mg/dl (7-18); Calcium 9.9 mg/dl (8.5-10.1); Carbon Dioxide 26 mmol/L (21-32); Chloride 106 mmol/L (98-107); Creatinine Clr Calc Pharmacy 142.1 ml/min; Est GFR (African American) > 150.0; Est GFR (Non-African American) 130.2; Glucose 97 mg/dl (70-99); Potassium 3.5 mmol/L (3.5-5.1); Sodium 138 mmol/L (136-145)
[2019-12-14] MEDS: THIAMINE HCL 100 MG in SYRINGE 9 ML IV SCH (08:33)
[2019-12-14] MEDS: SUCRALFATE 1 GM/10 ML UDC PO SCH ×2 (08:33→11:48)
[2019-12-14] MEDS: FOLIC ACID 1 MG in SYRINGE 9.8 ML IV SCH (08:33)
[2019-12-14] MEDS: MULTIVITAMIN TAB PO SCH (08:33)
[2019-12-14] MEDS: PANTOprazole 40 MG TAB PO SCH (08:34)
[2019-12-14] MEDS: ONDANSETRON INJ 2 MG/ML 2 ML VIAL IV PRN (08:37)
[2019-12-14] MEDS: GABAPENTIN 100 MG CAP PO SCH ×2 (11:47→13:57)
--- NOTE | 2019-12-14 13:37 | Hospitalist Progress Note ---
Date of Service December 14, 2019 Assessment & Plan (1) Acute alcoholic gastritis: Patient presented with acute epigastric pain with questionable hematemesis --CT ABD:No CT evidence of acute pancreatitis. Mild wall thickening throughout the majority of the colon is likely secondary to partial distention. A mild nonspecific colitis is considered less likely. No bowel obstruction. Normal appendix. Hepatic steatosis. --Normal Lipase levels --Evaluated by GI --Continue Protonix, Carafate Counseled to quit alcohol use Pain control (? 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 (2) Nausea & vomiting: As above Symptomatic management (3) Abdominal pain: as above (4) Alcohol withdrawal: H/O recurrent admission due to alcohol withdrawal H/O Recurrent pancreatitis Continue alcohol withdrawal protocol continue thiamine, folic acid Plan to discharge to alcohol rehab facility (5) Alcohol abuse: Counseled to quit drinking Management as above (6) Electrolyte imbalance: Hypokalemia, hypomagnesemia, hypophosphatemia Replete electrolytes as needed Monitor (7) Anxiety disorder: Continue current medications Has had recently been evaluated by psychiatry DVT Px: SCDs Re: Thrombocytopenia Admission and Anticipated Discharge Date Admission Date: December 08, 2019 Subjective Patient is seen and examined at bedside Planned to be discharged to rehab facility today Reports anxiety No significant alcohol withdrawal symptoms Denies chest pain, shortness of breath, dizziness Review of Systems Review of Systems: All systems reviewed & are unremarkable except as noted in HPI & below Physical Exam Physical Exam: Physical Exam: Vitals signs as noted above General Appearance:Moderately built and nourished, no apparent distress, Anxious Head: normocephalic, Atraumatic Eyes: normal inspection, EOMI Neck: supple, Trachea midline Respiratory/Chest: Normal breath sounds, CTA, No accessory muscle use Cardiovascular: S1, S2, No murmur, Sinus tachycardia Abdomen/GI:Soft, + epigastric tender, Bowel sounds present, No guarding/rigidity Extremities/Musculoskelatal:normal inspection, no edema Neurologic/Psych:AAOX3, grossly no focal neurological deficits Skin: normal color, warm Results & Data Results & Data ([facility]) Vital Signs (Past 12 Hours) Vital Signs Temp Pulse Resp BP Pulse Ox 12/14/19 11:24 36.7 C 102 H 18 122/86 99 12/14/19 07:16 36.7 C 94 H 18 99/66 L 96 Laboratory Results [facility] 12/14/19 07:30 Sodium 138 Potassium 3.5 Chloride 106 Carbon Dioxide 26 BUN 3 L Creatinine 0.54 L Glucose 97 Calcium 9.9 (1) Acute alcoholic gastritis Gastritis bleeding: presence of bleeding unspecified Qualified Code(s): K29.20 - Alcoholic gastritis without bleeding (2) Abdominal pain Abdominal location: epigastric Qualified Code(s): R10.13 - Epigastric pain
--- NOTE | 2019-12-14 13:46 | Discharge Summary ---
Date of Service December 14, 2019 Admission HPI Per Admitting Provider CHIEF COMPLAINT: Nausea, vomiting, and abdominal pain. HISTORY OF PRESENT ILLNESS: This is a 24-year-old female with past medical history significant for chronic alcohol abuse, recurrent admission for alcoholic gastritis and pancreatitis, history of thrombocytopenia, depression, history of cannabis abuse, who presents with nausea, vomiting and abdominal pain since yesterday. She says she vomited several episodes. She thinks she might have had blood in the vomitus and is having abdominal pain in the epigastric region and feeling shaky. Still drinking alcohol. She says last night she drank about half bottle of vodka. She is living with her friends. Denies any fever, chills. No loss of sense of smell or taste. No cough, no chest pain, no shortness of breath, no headache, no runny nose, no sore throat. Normal bowel and bladder movements. No rash seen. Admission Exam Per Admitting Provider PHYSICAL EXAMINATION: GENERAL: The patient is of moderate build, not in acute distress. VITAL SIGNS: Temperature 36.6, pulse 105, respiratory rate 18, blood pressure 123/77, oxygen 99% on room air. HEENT: No pallor, no icterus. Pupils equal, round, and reactive to light. Oral mucosa dry. NECK: No JVD, no neck masses. CARDIOVASCULAR: S1, S2 heard. Regular rate and rhythm, no murmur, no gallop. RESPIRATORY SYSTEM: Normal AP diameter. No accessory muscle use. No wheezing, no crackles. ABDOMEN: Soft, bowel sounds are present. Mild discomfort. No guarding. No rigidity. No distention. CENTRAL NERVOUS SYSTEM: Cranial nerves II-XII grossly intact, nonfocal. EXTREMITIES: No edema, no erythema. Principal Diagnosis Acute Alcoholic Gastritis Thrombocytopenia Tobacco use disorder Alcohol abuse Discharge Data Allergies Allergy/AdvReac Type Severity Reaction Status Date / Time amairani Allergy Mild GUMS SWELL Verified 12/08/19 04:00 mushroom Allergy Mild GUMS SWELL Verified 12/08/19 04:00 Consultations 12/08/19 04:42 ED Decision to Admit Stat 12/08/19 10:02 Consult Case Management - Discharge Planning Routine Consult Gastroenterology Routine Procedures Performed --CT ABD:No CT evidence of acute pancreatitis. Mild wall thickening throughout the majority of the colon is likely secondary to partial distention. A mild nonspecific colitis is considered less likely. No bowel obstruction. Normal appendix. Hepatic steatosis. Ordered Studies 12/08/19 02:57 CT abd pelvis IV con only Urgent Hospital Course (1) Acute alcoholic gastritis: Patient presented with acute epigastric pain with questionable hematemesis --CT ABD:No CT evidence of acute pancreatitis. Mild wall thickening throughout the majority of the colon is likely secondary to partial distention. A mild nonspecific colitis is considered less likely. No bowel obstruction. Normal appendix. Hepatic steatosis. --Normal Lipase levels --Evaluated by GI --Continue Protonix, Carafate Counseled to quit alcohol use Pain control (? 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 (2) Nausea & vomiting: As above Symptomatic management (3) Abdominal pain: as above (4) Alcohol withdrawal: H/O recurrent admission due to alcohol withdrawal H/O Recurrent pancreatitis Continue alcohol withdrawal protocol continue thiamine, folic acid Plan to discharge to alcohol rehab facility (5) Alcohol abuse: Counseled to quit drinking Management as above (6) Electrolyte imbalance: Hypokalemia, hypomagnesemia, hypophosphatemia Replete electrolytes as needed Monitor (7) Anxiety disorder: Continue current medications Has had recently been evaluated by psychiatry DVT Px: SCDs Re: Thrombocytopenia Total Time Total Time Spent Total Time Spent (In Minutes): 39 minutes Total Time Includes: Examination of the Patient, Discharge Planning, Medication Reconciliation, Communication With Other Providers and Other Discharge Plan Discharge Items Patient Disposition: Drug & Alcohol Rehab Reason For Visit: N/V AND ABDOMINAL PAIN Discharge Diagnosis: Acute Alcoholic Gastritis Thrombocytopenia Tobacco use disorder Alcohol abuse Condition on Discharge: Fair Activity: Resume your previous activity Exercise/Sports: Gradually increase as tolerated Non-emergency contact: Primary Care Provider Call non-emergency contact if: you have any medication questions, your symptoms worsen, your pain is not controlled, your pain is worsening, your pain is unusual for you, your pain is concerning for you and you have a fever Follow-up/Referrals: William Mullins MD [Primary Care Provider] - Diet: Regular Addtl Attending Provider Instructions: Follow-up with your primary care physician Dr. 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 Quit drinking alcohol as advised Seek immediate medical attention if your symptoms reoccur or worsen Pending Studies at Discharge: No Stand-Alone Forms: My [facility] Skilled Items Patient informed of condition?: Yes DNR: No Discharge Level of Care: Acute rehab Communicable Disease: No Discharge Prognosis: Stable Lines: None Urinary Catheter: No Medications and DC Order Prescriptions: New pantoprazole 40 mg Tablet,Delayed Release (Dr/Ec) 40 mg PO BID 30 Days Qty: 60 RF: 0 gabapentin 100 mg Capsule 100 mg PO TID 10 Days Qty: 30 RF: 0 sucralfate 1 gram tablet 1 gm PO ACHS 10 Days Qty: 40 RF: 0 thiamine HCl (vitamin B1) 100 mg tablet 100 mg PO DAILY Qty: 30 RF: 0 folic acid 1 mg tablet 1 mg PO DAILY Qty: 30 RF: 0 hydroxyzine pamoate [Vistaril] 25 mg capsule 25 mg PO BID PRN (Reason: itching) Qty: 20 RF: 0 Continued multivitamin Tablet 1 tab PO DAILY RF: 0 melatonin 5 mg Tablet 5 mg PO HS PRN (Reason: Insomnia) RF: 0 Unknown Control Pill 1 tab PO DAILY RF: 0 Discharge Orders: Discharge Order (Routine); Ordered 12/14/19 Ordered By: Nathan Grissom Admission Data Admit Date/Time: 12/08/19 05:59 Attending Provider: Nathan Grissom Admit Provider: Jeffery Kuo Primary Care Provider: William Mullins Other Providers: Jeffery Kuo ; Ramos Bustillos Jessica R. ; Izabela Richardson ; Mari Grady ; Anton Reid ; Norma Alvarado ; Antwan Luna ; Amy Pedraza ; Akbar Mcneil ; Bear Bland ; Brionna Mcmanus ; Dixie Carrero ; Dinah Madison ; Brittney Mosquera ; Angel Roberson Other Interventions: Discharge Summary Assessment (RN) Last Done: 12/14/19 13:49 PSY Interdisciplinary Discharge Planning Last Done: 12/10/19 14:00 DC Date/Time DO NOT enter until pt leaves facility: 12/14/19 14:35
== END 2019-12-14 14:35 | disposition alcohol treatment (31) ==
LOC: ED 02:47 → INTOOBSV 05:59 → 2W 05:59 → SUATTDRO 05:59 → 2W 09:53

== ENCOUNTER 2020-03-04 10:57 | Observation (INO) ==
[2020-03-04 11:50] LABS: Appearance Urine Clear (Clear); Bilirubin Urine Negative (Negative); Blood Urine Negative (Negative); Color Urine Yellow; Glucose Urine UA Negative (Negative); Ketones Urine Negative (Negative); Leukocyte Esterase Urine Negative (Negative); Nitrite Urine Negative (Negative); Protein Urine Negative (Negative); Urobilinogen Urine Negative (Negative); pH Urine 5.5 (4.5-7.5)
[2020-03-04 12:12] LABS: Basophils # (auto) 0.02 K/uL (0-0.2); Basophils % (auto) 0.4 %; Eosinophils # (auto) 0.05 K/uL (0-0.5); Eosinophils % (auto) 0.9 %; Hematocrit (blood only) 39.8 % (37-47); Hemoglobin 13.1 g/dL (12.0-16.0); Immature Granulocytes # (auto) 0.02 K/uL (0.00-0.02); Immature Granulocytes % (auto) 0.4 %; Lymphocytes # (auto) 1.08 K/uL (1.2-3.4); Lymphocytes % (auto) 19.1 %; Mean Corpuscular Hemoglobin 29.6 pg (25-34); Mean Corpuscular Hgb Conc 32.9 g/dL (32-36); Mean Platelet Volume 8.7 fL (7.4-10.4); Monocytes # (auto) 0.72 K/uL (0.11-0.59); Monocytes % (auto) 12.7 %; Neutrophils # (auto) 3.76 K/uL (1.4-6.5); Neutrophils % (auto) 66.5 %; Platelet Count 121 K/uL (130-400); RDW Coefficient of Variation 16.1 % (11.5-14.5); RDW Standard Deviation 53.3 fL (36.4-46.3); Red Blood Count 4.42 M/uL (4.2-5.4); White Blood Count 5.65 K/uL (4.8-10.8)
[2020-03-04 12:17] LABS: Amphetamines+Metham, Urine Neg (Neg); Barbiturates, Urine Neg (Neg); Benzodiazepine, Urine Neg (Neg); Cocaine, Urine Neg (Neg); MDMA (Ecstacy), Urine Neg (Neg); Methadone, Urine Neg (Neg); Opiate, Urine Neg (Neg); Phencyclidine, Urine Neg (Neg)
[2020-03-04] MEDS ORDERED: KETOROLAC 30 MG/ML VIAL IV ONE (12:24)
[2020-03-04] MEDS ORDERED: diphenhydrAMINE 50 MG/ML VIAL IV STA (12:24)
[2020-03-04] MEDS ORDERED: PIPERACILLIN/TAZOBACTAM 4.5 GM/120 ML BAG IV ONE (12:24)
[2020-03-04] MEDS ORDERED: PIPERACILL/TAZOBAC CONSULT ACTIVE PRN (12:24)
[2020-03-04] MEDS ORDERED: PROCHLORPERAZINE 2 ML IV ONE (12:24)
[2020-03-04 12:29] LABS: Albumin Level 3.9 gm/dl (3.4-5.0); BUN Creatinine Ratio 6.9 (10-20); Creatinine Clr Calc Pharmacy 120.7 ml/min; Est GFR (African American) 142.5; Est GFR (Non-African American) 122.9
[2020-03-04 12:40] LABS: Bilirubin,Total 0.6 mg/dl (0.2-1); Thyroid Stimulating Hormone 0.575 uIu/ml (0.300-4.500); Total Protein 7.9 gm/dl (6.4-8.2)
[2020-03-04 12:45] LABS: Acetaminophen < 2 ug/ml (10-30); Salicylate 1.7 mg/dl (2.8-20)
[2020-03-04] MEDS ORDERED: IOVERSOL 100ml IV ONE (12:50)
--- NOTE | 2020-03-04 13:08 | CT Scan Report ---
CT facial bones w con CLINICAL HISTORY: Right facial swelling. COMPARISON STUDY: Facial bone CT March 02, 2020. TECHNIQUE: Maxillofacial CT was performed following intravenous injection of 93 cc Optiray 320 IV. Sa gittal and coronal reconstructions were viewed. Automated exposure control was utilized for the study . A dose lowering technique was utilized adhering to the principles of ALARA. FINDINGS: Visualized portions of the intracranial contents are unremarkable. Mild sinus mucosal thick ening is noted. The mastoid air cells are clear. Note is made of moderate right facial infiltration w hich has developed since CT of March 02, 2020. No fluid collection is identified to suggest an absc ess. There is no soft tissue gas. Visualized portions of the airway are patent. Epiglottis is normal. No facial fracture is identified. Orbits are unremarkable. Major vasculature of the upper neck is pa tent. Parotid and submandibular glands are unremarkable. Alignment of the temporomandibular joints is anatomic. Orbital floors are intact. IMPRESSION: 1. Interval development of moderate right facial subcutaneous infiltration since CT of March 02. This could reflect cellulitis or a contusion. No abscess. 2. No acute facial fracture. 3. Mild sinus mucosal thickening. ACT 112: Negative or not required by law. Electronically signed by: Nathanael Jurado M.D. 03/04/2020 1:07 PM
[2020-03-04] MEDS ORDERED: ACETAMINOPHEN 1,000 MG/100 ML VIAL IV STA (13:45)
--- NOTE | 2020-03-04 15:35 | History & Physical Report ---
Date of Service March 04, 2020 Assessment & Plan (1) Facial cellulitis: -Admit to [facility] with telemetry -Patient presenting to the ED as a 302 warrant -Was seen in the ED on 03/02 for facial injury/lip laceration [place]. Received 3 sutures to inner lower left lip. -Was prescribed amoxicillin however never picked up the medication -Today has significant swelling on exam. Facial CT negative for acute fracture and abscess. -Afebrile, no leukocytosis -S/p Zosyn in the ED, will continue with and also add vancomycin (2) Alcohol abuse: -Patient with longstanding history of alcohol abuse -Reports drinking a sixpack of beer and 1 bottle of wine per day -Last drink was this morning -Start alcohol withdrawal protocol with gabapentin (3) Suicide and self-inflicted injury: -Currently on 302 warrant that was filed by patient's boyfriend. According to bingo manager, report states the patient expressed she was trying to harm herself when she fell on the rocks a few days ago. Patient currently denying any self harming behaviors or intentions. -Suicide precautions -Psychiatry consult (4) Seizure disorder: -Appears stable, continue Lamictal (5) DVT prophylaxis: -SCDs History of Present Illness Chief Complaint: 302 warrant Primary Care Provider: William Mullins MD 25-year-old female with PMH alcoholism, recurrent pancreatitis, polysubstance abuse, anxiety, and other problems listed below who was brought to the ED on a 302 warrant. Patient was seen in the ED on 03/02 for facial injury after slipping on some rocks along a river. Patient required sutures to the inner portion of her left lower lip. Patient was given a prescription for amoxicillin. According to bingo manager, patient's boyfriend submitted a 302 warrant a couple of days ago because patient expressed that she was trying to harm herself when she fell on the rocks. Patient denies any attempts to harm herself or others. Patient was found today and was brought to the ED. Patient is noted to be homeless. She reports she never picked up the antibiotics. She has had worsening swelling of her lips and right face. Patient reports she con tinues to drink alcohol, sixpack of beer and 1 bottle of wine per day. Last drink was this morning. Denies drug use however urine tox screen is positive for marijuana. Patient reports her oral intake has been very poor the past couple of days due to the swelling and pain. Denies chest pain or shortness of breath. No lightheadedness, dizziness, diaphoresis, syncopal events. She denies abdominal pain, nausea, vomiting, diarrhea. No fevers or chills. She denies any urinary symptoms. In the ED, facial CT is negative for acute fracture and signs of abscess. Alcohol level is 216. Other labs are unremarkable. Patient is hemodynamically stable. Patient was given IV Tylenol, IV diphenhydramine, IV ketorolac, IV Zosyn, IV prochlorperazine. Allergies Allergy/AdvReac Type Severity Reaction Status Date / Time amairani Allergy Mild GUMS SWELL Verified 03/02/20 17:27 mushroom Allergy Mild GUMS SWELL Verified 03/02/20 17:27 ketorolac [From Toradol] AdvReac Irritable Verified 03/04/20 13:18 Home Medications Home Medications Medication Instructions Recorded Confirmed Type multivitamin 1 tab PO QAM 09/24/18 03/04/20 History lamotrigine 50 mg PO BID 03/02/20 03/04/20 History Past Med/Surg History Medical History Alcohol abuse Closed fracture of left distal radius Closed fracture of right olecranon process Marijuana use Mood disorder Polysubstance abuse Recurrent pancreatitis Seizure disorder Tobacco use disorder Surgical History History of orthopedic surgery Family History Other No significant family history Social History Smoking Status: Current every day smoker Tobacco Type: Cigarettes Cigarettes Per Day: 20; Second Hand Exposure: No; Hx Alcohol Use: Yes Alcohol type: beer and wine Hx Substance Use: Yes Prescribed Medications: Marijuana Preferred Language: [place] Communication Ability: Effective Visual Impairment: No Limitations 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 Beliefs That Will Affect Care: None marital status: Single Current Living Situation: Other Current Living Situation Comment: roomate Feels Safe at Home: No Is there a partner from a previous relationship who is making you feel unsafe now?: No Assistive Devices: None Review of Systems Review of Systems: ROS per HPI, all other systems reviewed and negative Physical Exam Constitutional: WD/WN, vitals as above Eyes: PERRL, conjunctivae normal, anicteric sclerae ENMT: Ears: no external ear abnormality Nose: no external nose abnormality Mouth: + lip abnormality (Sutures noted to inner lower left lip) and + trismus + Swelling to lips and right face Respiratory: normal respiratory effort, lungs clear to auscultation Cardiovascular: Rate/Rhythm: regular rate and regular rhythm Vessels: normal peripheral pulses Extremities: no edema Gastrointestinal (Abdomen): normal bowel sounds, soft, nontender, no hepatosplenomegaly Musculoskeletal: no cyanosis or clubbing, extremities motor strength 5/5 Skin: no rashes, warm and dry Superficial abrasions noted to chin Neurologic: PERRL, EOMI, accommodation nl, no face palsy, no dysarthria Psychiatric: A+Ox3, euthymic affect Results & Data Results & Data ([facility]) Vital Signs (Past 12 Hours) Vital Signs Temp Pulse Pulse Resp BP BP Pulse Ox 03/04/20 14:36 98 H 18 98/66 L 98 03/04/20 13:02 37.4 C 105 H 18 122/79 97 03/04/20 11:10 37.2 C 110 H 18 122/89 97 Laboratory Results Short CBC 03/04/20 Range/Units 11:54 WBC 5.65 (4.8-10.8) K/uL Hgb 13.1 (12.0-16.0) g/dL Hct 39.8 (37-47) % Plt Count 121 L (130-400) K/uL BMP 03/04/20 11:54 Sodium 139 Potassium 4.0 Chloride 105 Carbon Dioxide 25 BUN 4 L Creatinine 0.63 Glucose 79 Calcium 9.0 Liver Function 03/04/20 Range/Units 11:54 Total Bilirubin 0.6 (0.2-1) mg/dl AST 79 H (15-37) U/L ALT 93 H (12-78) U/L Alkaline Phosphatase 131 H (45-117) U/L Albumin 3.9 (3.4-5.0) gm/dl Urine 03/04/20 Range/Units Unknown Urine Color Yellow Urine Appearance Clear (Clear) Urine pH 5.5 (4.5-7.5) Ur Specific [place] 1.010 (1.000-1.030) Urine Protein Negative (Negative) Urine Glucose (UA) Negative (Negative) Diagnostic Findings FACIAL CT IMPRESSION: 1. Interval development of moderate right facial subcutaneous infiltration since CT of March 02, 2020. This could reflect cellulitis or a contusion. No abscess. 2. No acute facial fracture. 3. Mild sinus mucosal thickening. Code Status & VTE Plan VTE Prophylaxis Plan VTE Prophylaxis will be ordered: Yes Supervising Physician Co-Signing Physician Notes I saw this patient with the Nurse Practitioner, I participated in the history, physical, review of systems, and physical exam. I reviewed the medications with the patient and the Nurse Practitioner and helped reconcile the medications. I helped take a detailed family and social history as well. I formulated the ass essment and plan personally with the Nurse Practitioner went over it with the patient. Physical Exam Gen-AAO x 3, NAD, Afebrile Head-right facial and lip trauma, EOMI, PERRLA, Anicteric Sclera, No Posterior Pharyngeal Erythema Neck-Supple, No JVD, No Thyromegaly, No Masses, No LAD, No Bruits Lungs-Clear to Auscultation Bilaterally, No Rales, No Rhonchi, No Wheezing, No Crepitus Chest-No S4, +S1, +S2, No S3, No Murmurs, No Rubs, No Gallops, No Ectopy Abdomen-Soft, Bowel Sounds Present, Non Tender, Non Distended, No Hepatomegaly, No Splenomegaly, No Palpable Masses, No Rebound, No Rigidity, No Guarding Musculoskeletal-Full Range of Motion Bilaterally, No CVAT Extremities-No Cyanosis, No Clubbing, No Edema Nuero-Cranial Nerves II-XII grossly intact, Motor WNL, DTRs WNL, Strength WNL, Non Focal Psych-Normal Mood
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
[2020-03-04] MEDS ORDERED: ATIVAN IV ALCOHOL WITHDRAWL IV PRN (17:17)
[2020-03-04] MEDS ORDERED: LORazepam 3 MG/6 ML VIAL IV PRN (17:17)
[2020-03-04] MEDS ORDERED: GABAPENTIN 1200MG ALCOHOL WITHDRAWAL LOAD PO STA (17:17)
[2020-03-04] MEDS ORDERED: MULTI-VITAMIN INFUSION 10 ML, THIAMINE HCL 100 MG, FOLIC ACID 1 MG in SODIUM CHLORIDE 0... IV ONE (17:17)
[2020-03-04] MEDS ORDERED: VANCOMYCIN CONSULT ACTIVE PRN (17:17)
[2020-03-04] MEDS: LORazepam 1 MG/2 ML VIAL IV PRN ×2 (17:52→19:32)
[2020-03-04] MEDS ORDERED: VANCOMYCIN HCL 1,750 MG in SODIUM CHLORIDE 0.9% 500 ML IV SCH (18:00)
[2020-03-04] MEDS ORDERED: GABAPENTIN 600 MG TAB PO ONE (18:00)
[2020-03-04] MEDS: FOLIC ACID 1 MG in SYRINGE 9.8 ML IV SCH (18:18)
[2020-03-04] MEDS: THIAMINE HCL 100 MG in SYRINGE 9 ML IV SCH (18:20)
[2020-03-04] MEDS: KETOROLAC TROMETHAMINE 15 MG/ML VIAL IV PRN (18:34)
[2020-03-04] MEDS: PIPERACILLIN/TAZOBACTAM 3.375 GM in DEXTROSE 5% 100 ML IV SCH (19:14)
[2020-03-04] MEDS: lamoTRIgine 25 MG TAB PO SCH (20:07)
[2020-03-04] MEDS: ACETAMINOPHEN 325 MG TAB PO PRN (20:07)
[2020-03-04] MEDS: SODIUM CHLORIDE 0.9% 1000ML 1,000 ML IV SCH (20:37)
[2020-03-04] MEDS: GABAPENTIN 600 MG TAB PO SCH (23:21)
[2020-03-05] MEDS: PIPERACILLIN/TAZOBACTAM 3.375 GM in DEXTROSE 5% 100 ML IV SCH ×3 (01:31→17:41)
[2020-03-05] MEDS: LORazepam 2 MG/4 ML VIAL IV PRN ×2 (01:32→05:06)
[2020-03-05] MEDS: KETOROLAC TROMETHAMINE 15 MG/ML VIAL IV PRN ×4 (01:39→23:30)
[2020-03-05] MEDS ORDERED: PROMETHAZINE HCL 12.5 MG in SODIUM CHLORIDE 0.9% 50 ML IV STA (01:48)
[2020-03-05] MEDS: VANCOMYCIN HCL 1,250 MG in SODIUM CHLORIDE 0.9% 250 ML IV SCH ×3 (02:46→19:41)
[2020-03-05] MEDS: SODIUM CHLORIDE 0.9% 1000ML 1,000 ML IV SCH (04:47)
[2020-03-05] MEDS: GABAPENTIN 600 MG TAB PO SCH ×3 (05:00→20:58)
[2020-03-05 07:52] LABS: Hematocrit (blood only) 33.2 % (37-47); Hemoglobin 10.6 g/dL (12.0-16.0); Mean Corpuscular Hemoglobin 29.2 pg (25-34); Mean Corpuscular Hgb Conc 31.9 g/dL (32-36); Mean Corpuscular Volume 91.5 fL (80-100); Mean Platelet Volume 8.9 fL (7.4-10.4); Platelet Count 101 K/uL (130-400); RDW Coefficient of Variation 15.7 % (11.5-14.5); RDW Standard Deviation 53.2 fL (36.4-46.3); Red Blood Count 3.63 M/uL (4.2-5.4); White Blood Count 3.85 K/uL (4.8-10.8)
[2020-03-05] MEDS: MULTIVITAMIN TAB PO SCH (08:11)
[2020-03-05] MEDS: lamoTRIgine 25 MG TAB PO SCH ×2 (08:12→20:57)
[2020-03-05] MEDS: FOLIC ACID 1 MG in SYRINGE 9.8 ML IV SCH (08:12)
[2020-03-05] MEDS: THIAMINE HCL 100 MG in SYRINGE 9 ML IV SCH (08:13)
[2020-03-05] MEDS: LORazepam 1 MG/2 ML VIAL IV PRN ×3 (08:15→20:57)
[2020-03-05 08:23] LABS: BUN Creatinine Ratio 10.3 (10-20); Blood Urea Nitrogen 5 mg/dl (7-18); Calcium 8.5 mg/dl (8.5-10.1); Carbon Dioxide 21 mmol/L (21-32); Chloride 109 mmol/L (98-107); Creatinine Clr Calc Pharmacy 149.1 ml/min; Est GFR (African American) > 150.0; Est GFR (Non-African American) 131.8; Glucose 62 mg/dl (70-99); Potassium 3.7 mmol/L (3.5-5.1); Sodium 138 mmol/L (136-145)
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
[2020-03-05] MEDS: BACLOFEN 10 MG TAB PO PRN ×2 (11:12→17:41)
[2020-03-05] MEDS: BENZOCAINE 20% (ORAJEL) 11.9 GM TUBE MT PRN ×2 (12:40→20:56)
--- NOTE | 2020-03-05 15:22 | Pharmacy Report ---
Pharmacy Abx Initial Consult - Date of Service March 05, 2020 - Pharmacy Dosing Scope Date of Consult: 03/05/20 Consultation requested by: Matilda PENG Pharmacy is consulted to initiate Vancomycin IV dosing therapy, order appropriate labs and adjust drug dose/frequency. - Subjective The patient is a 25 year old F admitted on 03/05/20 14:38. - Objective Height: 5 ft 5 in Weight: 67.5 kg Vital Signs (Past 12hrs): Vital Signs Pulse 03/05/20 03:33 81 Lab Results (24hrs): Laboratory Tests (24 Hours) 03/05/20 03/05/20 07:19 07:19 WBC 3.85 L Creatinine 0.51 L Est Cr Clr Drug Dosing 149.1 - Assessment & Plan Assessment 25 year old F admitted for facial cellulitis. Patient fell recently and cut her lip. She was prescribed amoxicillin in the ED but did not take this. Patient with history of alcohol abuse and non-compliance. Lip swelling worsens and now with facial cellulitis. Currently ordered Vancomycin. Plan Vancomycin IV * Loading dose: 1750 mg (25 mg/kg) IV x 1 given yesterday evening. * Patient meets criteria for vancomycin AUC dosing nomogram AUC/JACKY is the preferred PK/PD target for vancomycin Target AUC/JACKY = 400-600 AUC guided dosing is effective and associated with decreased risk of nephrotoxicity * Trough Vanc level ordered for 03/06/20 before dose at 0400. Pharmacy will continue to follow and will adjust dose/frequency as necessary. Thank you.
--- NOTE | 2020-03-05 18:04 | Hospitalist Progress Note ---
Date of Service March 05, 2020 Assessment & Plan (1) Facial cellulitis: Facial cellulitis Secondary to Trauma/Fall S/P sutures --Face CT:Interval development of moderate right facial subcutaneous infiltration since CT of March 02, 2020. This could reflect cellulitis or a contusion. No abscess. No acute facial fracture. Mild sinus mucosal thickening. --Head CT:No acute intracranial abnormality. --Continue vancomycin, Zosyn --Pain control --Advance diet as tolerated (2) Alcohol abuse: H/O longstanding alcohol abuse Reports drinking sixpack of beer and 1 bottle of wine per day Alcohol level:216 Continue gabapentin, lorazepam as per protocol Monitor for withdrawal symptoms Continue thiamine, folic acid (3) Suicide and self-inflicted injury: [address] H/O alcohol abuse, polysubstance abuse, mood disorder and suicide and self- inflicted injury Currently denies suicidal ideation as per psychiatry Appreciate psychiatry input Home medications need to be readdressed Questionable compliance No current indication for inpatient psychiatric treatment as per psychiatry Monitor Diarrhea Check Stool for C diff Monitor (4) Seizure disorder: Stable ? Compliance with medications continue Lamictal (5) DVT prophylaxis: SCDs Admission and Anticipated Discharge Date Admission Date: March 05, 2020 Subjective Patient is seen and examined at bedside Reports nausea but no vomiting Also reports 2 loose BMs today States having oral pain, sciatic pain Denies chest pain, shortness of breath, dizziness, abdominal pain Anxious during my encounter Review of Systems Review of Systems: All systems reviewed & are unremarkable except as noted in HPI & below Physical Exam Physical Exam: Physical Exam: Vitals signs as noted above General Appearance:Moderately built and nourished, no apparent distress Head: normocephalic, traumatic, Lip swelling, +sutures Eyes: normal inspection, EOMI Neck: supple, Trachea midline Respiratory/Chest: Normal breath sounds, CTA Cardiovascular: S1, S2, No murmur Abdomen/GI:Soft, Non tender, Bowel sounds present Extremities/Musculoskelatal:normal inspection, no edema Neurologic/Psych:AAOX3, grossly no focal neurological deficits Skin: normal color, warm Results & Data Results & Data ([facility]) Vital Signs (Past 12 Hours) Vital Signs Temp Pulse Resp BP BP Pulse Ox 03/05/20 16:21 36.9 C 100 H 22 139/94 133/90 100 Laboratory Results Short CBC 03/05/20 Range/Units 07:19 WBC 3.85 L (4.8-10.8) K/uL Hgb 10.6 L (12.0-16.0) g/dL Hct 33.2 L (37-47) % Plt Count 101 L (130-400) K/uL [facility] 03/05/20 07:19 Sodium 138 Potassium 3.7 Chloride 109 H Carbon Dioxide 21 BUN 5 L Creatinine 0.51 L Glucose 62 L Calcium 8.5
[2020-03-05] MEDS: MELATONIN 3 MG TAB PO PRN (20:57)
[2020-03-06] MEDS: PIPERACILLIN/TAZOBACTAM 3.375 GM in DEXTROSE 5% 100 ML IV SCH ×3 (02:21→17:11)
[2020-03-06 02:52] LABS: Marijuana Quant, GCMS Urine 354 ng/mL (<5)
[2020-03-06] MEDS: BACLOFEN 10 MG TAB PO PRN ×3 (03:23→17:28)
[2020-03-06] MEDS: LORazepam 1 MG/2 ML VIAL IV PRN ×2 (03:23→09:06)
[2020-03-06] MEDS: BENZOCAINE 20% (ORAJEL) 11.9 GM TUBE MT PRN ×2 (03:25→17:56)
[2020-03-06] MEDS ORDERED: VANCOMYCIN TROUGH ONE (03:30)
[2020-03-06] MEDS: GABAPENTIN 600 MG TAB PO SCH ×2 (05:08→17:11)
[2020-03-06] MEDS: KETOROLAC TROMETHAMINE 15 MG/ML VIAL IV PRN ×4 (05:09→23:14)
[2020-03-06 05:17] LABS: Hematocrit (blood only) 37.3 % (37-47); Hemoglobin 12.2 g/dL (12.0-16.0); Mean Corpuscular Hemoglobin 29.8 pg (25-34); Mean Corpuscular Hgb Conc 32.7 g/dL (32-36); Mean Platelet Volume 9.1 fL (7.4-10.4); Platelet Count 110 K/uL (130-400); RDW Coefficient of Variation 15.7 % (11.5-14.5); RDW Standard Deviation 51.7 fL (36.4-46.3); White Blood Count 4.07 K/uL (4.8-10.8)
[2020-03-06 05:40] LABS: BUN Creatinine Ratio 7.7 (10-20); Calcium 9.1 mg/dl (8.5-10.1); Creatinine Clr Calc Pharmacy 104.2 ml/min; Est GFR (African American) 130.8; Est GFR (Non-African American) 112.9; Magnesium 1.9 mg/dl (1.8-2.4); Potassium 3.7 mmol/L (3.5-5.1)
[2020-03-06] MEDS: VANCOMYCIN HCL 1,250 MG in SODIUM CHLORIDE 0.9% 250 ML IV SCH (06:02)
[2020-03-06] MEDS: ACETAMINOPHEN 325 MG TAB PO PRN ×2 (07:48→20:33)
[2020-03-06] MEDS: MULTIVITAMIN TAB PO SCH (07:49)
[2020-03-06] MEDS: lamoTRIgine 25 MG TAB PO SCH ×2 (07:49→20:33)
[2020-03-06] MEDS: FOLIC ACID 1 MG TAB PO SCH (07:50)
[2020-03-06] MEDS: THIAMINE HCL 100 MG TAB PO SCH (07:50)
[2020-03-06] MEDS: ONDANSETRON INJ 2 MG/ML 2 ML VIAL IV PRN ×2 (09:01→20:34)
[2020-03-06] MEDS ORDERED: hydrOXYzine HCl 25 MG TAB PO PRN (11:44)
[2020-03-06] MEDS ORDERED: LORazepam 1 MG TAB PO PRN (11:46)
[2020-03-06] MEDS: LACTOBACILLUS ACIDOPHILUS 1 GM PACK PO SCH ×2 (13:14→17:11)
[2020-03-06] MEDS ORDERED: LOPERAMIDE HCL 2 MG CAP PO PRN (14:15)
[2020-03-06] MEDS: LORazepam 1 MG TAB PO PRN (17:55)
--- NOTE | 2020-03-06 18:24 | Hospitalist Progress Note ---
Date of Service March 06, 2020 Assessment & Plan (1) Facial cellulitis: Facial cellulitis Secondary to Trauma/Fall S/P sutures --Face CT:Interval development of moderate right facial subcutaneous infiltration since CT of March 02, 2020. This could reflect cellulitis or a contusion. No abscess. No acute facial fracture. Mild sinus mucosal thickening. --Head CT:No acute intracranial abnormality. --Vancomycin discontinued --Continue Zosyn --Pain control --Tolerating regular diet --Plan to transition to p.o. antibiotics as able (2) Alcohol abuse: H/O longstanding alcohol abuse Reports drinking sixpack of beer and 1 bottle of wine per day Alcohol level:216 Continue gabapentin, lorazepam as per protocol Monitor for withdrawal symptoms Continue thiamine, folic acid (3) Suicide and self-inflicted injury: [address] H/O alcohol abuse, polysubstance abuse, mood disorder and suicide and self- inflicted injury Noncompliant with medications Currently denies suicidal ideation as per psychiatry Appreciate psychiatry input Doxepin discontinued Continue Lamictal, Seroquel, melatonin No current indication for inpatient psychiatric treatment as per psychiatry Patient refuses referrals as planning to move to [place] as per psychiatry Monitor Diarrhea Stool for C diff: Negative Imodium PRN Monitor (4) Seizure disorder: Stable Non compliant with medications continue Lamictal (5) DVT prophylaxis: SCDs Admission and Anticipated Discharge Date Admission Date: March 05, 2020 Subjective Patient is seen and examined at bedside Reports cough with yellowish expectoration Still has diarrhea States feeling tired, anxious, nauseous Denies chest pain, shortness of breath, dizziness, abdominal pain Sinus tachycardia on monitor Offers no other complaints Review of Systems Review of Systems: All systems reviewed & are unremarkable except as noted in HPI & below Physical Exam Physical Exam: Physical Exam: Vitals signs as noted above General Appearance:Moderately built and nourished, no apparent distress Head: normocephalic, traumatic, Lip swelling, +sutures Eyes: normal inspection, EOMI Neck: supple, Trachea midline Respiratory/Chest: Normal breath sounds, CTA Cardiovascular: S1, S2, No murmur Abdomen/GI:Soft, Non tender, Bowel sounds present Extremities/Musculoskelatal:normal inspection, no edema Neurologic/Psych:AAOX3, grossly no focal neurological deficits Skin: normal color, warm Results & Data Results & Data ([facility]) Vital Signs (Past 12 Hours) Vital Signs Temp Pulse Pulse Resp BP Pulse Ox 03/06/20 16:06 37.0 C 114 H 18 119/77 98 03/06/20 14:55 132 H 03/06/20 07:19 36.5 C 50 L 18 121/85 97 Laboratory Results Short CBC 03/06/20 Range/Units 05:01 WBC 4.07 L (4.8-10.8) K/uL Hgb 12.2 (12.0-16.0) g/dL Hct 37.3 (37-47) % Plt Count 110 L (130-400) K/uL BMP 03/06/20 05:01 Sodium 141 Potassium 3.7 Chloride 109 H Carbon Dioxide 26 BUN 6 L Creatinine 0.73 Glucose 97 Calcium 9.1
[2020-03-06] MEDS ORDERED: QUEtiapine FUMARATE 100 MG TABLET PO SCH (21:00)
[2020-03-06] MEDS: QUEtiapine FUMARATE 200 MG TAB PO SCH (22:09)
[2020-03-06] MEDS: MELATONIN 3 MG TAB PO PRN (23:27)
[2020-03-07] MEDS: BACLOFEN 10 MG TAB PO PRN ×2 (00:01→11:10)
[2020-03-07] MEDS: PIPERACILLIN/TAZOBACTAM 3.375 GM in DEXTROSE 5% 100 ML IV SCH ×3 (02:40→17:54)
[2020-03-07] MEDS: GABAPENTIN 600 MG TAB PO SCH (06:13)
[2020-03-07 06:31] LABS: Hematocrit (blood only) 38.7 % (37-47); Hemoglobin 12.6 g/dL (12.0-16.0); Mean Corpuscular Hemoglobin 29.6 pg (25-34); Mean Corpuscular Hgb Conc 32.6 g/dL (32-36); Mean Corpuscular Volume 91.1 fL (80-100); Mean Platelet Volume 9.4 fL (7.4-10.4); Platelet Count 108 K/uL (130-400); RDW Coefficient of Variation 16.1 % (11.5-14.5); RDW Standard Deviation 52.4 fL (36.4-46.3); Red Blood Count 4.25 M/uL (4.2-5.4); White Blood Count 3.87 K/uL (4.8-10.8)
[2020-03-07 06:58] LABS: BUN Creatinine Ratio 7.4 (10-20); Calcium 9.5 mg/dl (8.5-10.1); Creatinine Clr Calc Pharmacy 68.5 ml/min; Est GFR (African American) 78.8; Potassium 3.4 mmol/L (3.5-5.1)
[2020-03-07 07:00] LABS: Platelet Estimate Decreased (Normal)
[2020-03-07] MEDS: KETOROLAC TROMETHAMINE 15 MG/ML VIAL IV PRN (07:31)
[2020-03-07] MEDS: FOLIC ACID 1 MG TAB PO SCH (07:32)
[2020-03-07] MEDS: LACTOBACILLUS ACIDOPHILUS 1 GM PACK PO SCH ×3 (07:32→16:43)
[2020-03-07] MEDS: MULTIVITAMIN TAB PO SCH (07:32)
[2020-03-07] MEDS: lamoTRIgine 25 MG TAB PO SCH ×2 (07:33→20:44)
[2020-03-07] MEDS: THIAMINE HCL 100 MG TAB PO SCH (07:33)
[2020-03-07] MEDS ORDERED: KETOROLAC TROMETHAMINE 15 MG/ML VIAL IV PRN ×2 (08:46→08:58)
[2020-03-07] MEDS ORDERED: POTASSIUM CHLORIDE CRTAB 20 MEQ TABCR PO ONE (09:00)
[2020-03-07] MEDS: ACETAMINOPHEN 325 MG TAB PO PRN ×2 (11:10→16:45)
[2020-03-07] MEDS: KETOROLAC TROMETHAMINE 10 MG TABLET PO PRN (13:33)
[2020-03-07] MEDS: LORazepam 1 MG TAB PO PRN (14:52)
[2020-03-07] MEDS: BENZOCAINE 20% (ORAJEL) 11.9 GM TUBE MT PRN (16:44)
--- NOTE | 2020-03-07 17:13 | Hospitalist Progress Note ---
Date of Service March 07, 2020 Assessment & Plan (1) Facial cellulitis: Facial cellulitis Secondary to Trauma/Fall S/P sutures --Face CT:Interval development of moderate right facial subcutaneous infiltration since CT of March 02, 2020. This could reflect cellulitis or a contusion. No abscess. No acute facial fracture. Mild sinus mucosal thickening. --Head CT:No acute intracranial abnormality. --Vancomycin discontinued --Continue Zosyn --Pain control --Tolerating regular diet --slowly improving --Plan to transition to Augmentin tmw (2) Alcohol abuse: H/O longstanding alcohol abuse Reports drinking sixpack of beer and 1 bottle of wine per day Alcohol level:216 Continue gabapentin, lorazepam as per protocol Monitor for withdrawal symptoms Continue thiamine, folic acid (3) Suicide and self-inflicted injury: [address] H/O alcohol abuse, polysubstance abuse, mood disorder and suicide and self- inflicted injury Noncompliant with medications Currently denies suicidal ideation as per psychiatry Appreciate psychiatry input Doxepin discontinued Continue Lamictal, Seroquel, melatonin No current indication for inpatient psychiatric treatment as per psychiatry Patient refuses referrals as planning to move to [place] as per psychiatry Monitor Diarrhea Stool for C diff: Negative Imodium PRN Monitor No diarrhea today (4) Seizure disorder: Stable Non compliant with medications continue Lamictal (5) DVT prophylaxis: SCDs Admission and Anticipated Discharge Date Admission Date: March 05, 2020 Subjective Patient is seen and examined at bedside No diarrhea today Able to have regular food with some difficulty Reports being anxious Denies chest pain, SOB, dizziness, abdominal pain No new complaints Waiting for placement Review of Systems Review of Systems: All systems reviewed & are unremarkable except as noted in HPI & below Physical Exam Physical Exam: Physical Exam: Vitals signs as noted above General Appearance:Moderately built and nourished, no apparent distress Head: normocephalic, traumatic, Lip swelling, +sutures Eyes: normal inspection, EOMI Neck: supple, Trachea midline Respiratory/Chest: Normal breath sounds, CTA Cardiovascular: S1, S2, No murmur Abdomen/GI:Soft, Non tender, Bowel sounds present Extremities/Musculoskelatal:normal inspection, no edema Neurologic/Psych:AAOX3, grossly no focal neurological deficits Skin: normal color, warm Results & Data Results & Data ([facility]) Vital Signs (Past 12 Hours) Vital Signs Temp Pulse Pulse Resp BP Pulse Ox 03/07/20 14:50 36.6 C 50 L 16 134/86 94 03/07/20 11:41 36.6 C 85 16 119/85 100 03/07/20 07:29 36.6 C 98 H 16 100/63 100 03/07/20 05:45 94 H Laboratory Results Short CBC 03/07/20 Range/Units 06:20 WBC 3.87 L (4.8-10.8) K/uL Hgb 12.6 (12.0-16.0) g/dL Hct 38.7 (37-47) % Plt Count 108 L (130-400) K/uL BMP 03/07/20 06:20 Sodium 141 Potassium 3.4 L Chloride 109 H Carbon Dioxide 26 BUN 8 Creatinine 1.11 D Glucose 106 H Calcium 9.5
[2020-03-07] MEDS: MELATONIN 3 MG TAB PO PRN (22:11)
[2020-03-07] MEDS: QUEtiapine FUMARATE 200 MG TAB PO SCH (22:11)
[2020-03-08] MEDS: PIPERACILLIN/TAZOBACTAM 3.375 GM in DEXTROSE 5% 100 ML IV SCH (02:56)
[2020-03-08] MEDS ORDERED: GABAPENTIN 600 MG TAB PO SCH (06:00)
[2020-03-08] MEDS: FOLIC ACID 1 MG TAB PO SCH (07:46)
[2020-03-08] MEDS: THIAMINE HCL 100 MG TAB PO SCH (07:46)
[2020-03-08] MEDS: LACTOBACILLUS ACIDOPHILUS 1 GM PACK PO SCH ×3 (07:47→17:15)
[2020-03-08] MEDS: MULTIVITAMIN TAB PO SCH (07:47)
[2020-03-08] MEDS: lamoTRIgine 25 MG TAB PO SCH ×2 (07:47→20:52)
[2020-03-08] MEDS: ONDANSETRON INJ 2 MG/ML 2 ML VIAL IV PRN (07:49)
[2020-03-08 08:44] LABS: BUN Creatinine Ratio 7.5 (10-20); Calcium 9.5 mg/dl (8.5-10.1); Creatinine Clr Calc Pharmacy 67.9 ml/min; Est GFR (Non-African American) 67.3; Magnesium 1.9 mg/dl (1.8-2.4); Potassium 3.8 mmol/L (3.5-5.1)
[2020-03-08] MEDS: BACLOFEN 10 MG TAB PO PRN (08:50)
[2020-03-08] MEDS: ACETAMINOPHEN 325 MG TAB PO PRN ×3 (08:51→23:12)
[2020-03-08] MEDS: LORazepam 1 MG TAB PO PRN (09:51)
[2020-03-08] MEDS: BENZOCAINE 20% (ORAJEL) 11.9 GM TUBE MT PRN (15:54)
--- NOTE | 2020-03-08 16:46 | Hospitalist Progress Note ---
Date of Service March 08, 2020 Assessment & Plan (1) Facial cellulitis: Facial cellulitis Secondary to Trauma/Fall S/P sutures --Face CT:Interval development of moderate right facial subcutaneous infiltration since CT of March 02, 2020. This could reflect cellulitis or a contusion. No abscess. No acute facial fracture. Mild sinus mucosal thickening. --Head CT:No acute intracranial abnormality. --Vancomycin discontinued --Zosyn discontinued --Pain control --Tolerating regular diet --Started on Augmentin to complete the course (2) Alcohol abuse: H/O longstanding alcohol abuse Reports drinking sixpack of beer and 1 bottle of wine per day Alcohol level:216 Completed gabapentin protocol Lorazepam PRN Monitor for withdrawal symptoms Continue thiamine, folic acid (3) Suicide and self-inflicted injury: 302 [address]arrant H/O alcohol abuse, polysubstance abuse, mood disorder and suicide and self- inflicted injury Noncompliant with medications Currently denies suicidal ideation as per psychiatry Appreciate psychiatry input Doxepin discontinued Continue Lamictal, Seroquel, melatonin No current indication for inpatient psychiatric treatment as per psychiatry Patient refuses referrals as planning to move to [place] as per psychiatry Monitor Diarrhea Stool for C diff: Negative Imodium PRN Monitor Resolved (4) Seizure disorder: Stable Non compliant with medications continue Lamictal (5) DVT prophylaxis: SCDs Admission and Anticipated Discharge Date Admission Date: March 05, 2020 Subjective Patient is seen and examined at bedside Doing much better today No new complaints Diarrhea resolved Still has oral pain Denies chest pain, SOB, dizziness, abdominal pain Review of Systems Review of Systems: All systems reviewed & are unremarkable except as noted in HPI & below Physical Exam Physical Exam: Physical Exam: Vitals signs as noted above General Appearance:Moderately built and nourished, no apparent distress Head: normocephalic, traumatic, Lip swelling, +sutures Eyes: normal inspection, EOMI Neck: supple, Trachea midline Respiratory/Chest: Normal breath sounds, CTA Cardiovascular: S1, S2, No murmur Abdomen/GI:Soft, Non tender, Bowel sounds present Extremities/Musculoskelatal:normal inspection, no edema Neurologic/Psych:AAOX3, grossly no focal neurological deficits Skin: normal color, warm Results & Data Results & Data ([facility]) Vital Signs (Past 12 Hours) Vital Signs Temp Pulse Pulse Resp BP Pulse Ox 03/08/20 15:43 36.8 C 88 18 118/78 99 03/08/20 07:53 36.6 C 73 18 110/73 100 03/08/20 05:14 102 H Laboratory Results [facility] 03/08/20 07:57 Sodium 140 Potassium 3.8 Chloride 109 H Carbon Dioxide 26 BUN 8 Creatinine 1.12 Glucose 89 Calcium 9.5
[2020-03-08] MEDS: KETOROLAC TROMETHAMINE 10 MG TABLET PO PRN (17:13)
[2020-03-08] MEDS: AMOXICILLIN/CLAVULANATE 875 MG TAB PO SCH (17:14)
[2020-03-08] MEDS: QUEtiapine FUMARATE 200 MG TAB PO SCH (23:11)
[2020-03-08] MEDS: MELATONIN 3 MG TAB PO PRN (23:11)
[2020-03-09 07:29] LABS: Hematocrit (blood only) 37.6 % (37-47); Hemoglobin 12.1 g/dL (12.0-16.0); Mean Corpuscular Hemoglobin 29.4 pg (25-34); Mean Corpuscular Hgb Conc 32.2 g/dL (32-36); Mean Corpuscular Volume 91.3 fL (80-100); Mean Platelet Volume 9.1 fL (7.4-10.4); Platelet Count 120 K/uL (130-400); RDW Coefficient of Variation 16.3 % (11.5-14.5); RDW Standard Deviation 53.7 fL (36.4-46.3); Red Blood Count 4.12 M/uL (4.2-5.4)
[2020-03-09] MEDS: ONDANSETRON INJ 2 MG/ML 2 ML VIAL IV PRN (07:48)
[2020-03-09] MEDS: THIAMINE HCL 100 MG TAB PO SCH (07:48)
[2020-03-09] MEDS: FOLIC ACID 1 MG TAB PO SCH (07:48)
[2020-03-09] MEDS: LACTOBACILLUS ACIDOPHILUS 1 GM PACK PO SCH ×2 (07:49→12:09)
[2020-03-09] MEDS: AMOXICILLIN/CLAVULANATE 875 MG TAB PO SCH (07:49)
[2020-03-09] MEDS: LORazepam 1 MG TAB PO PRN ×2 (07:49→13:24)
[2020-03-09] MEDS: lamoTRIgine 25 MG TAB PO SCH (07:49)
[2020-03-09] MEDS: MULTIVITAMIN TAB PO SCH (07:49)
[2020-03-09] MEDS: ACETAMINOPHEN 325 MG TAB PO PRN (07:50)
[2020-03-09 07:53] LABS: BUN Creatinine Ratio 10.2 (10-20); Calcium 9.7 mg/dl (8.5-10.1); Creatinine Clr Calc Pharmacy 78.4 ml/min; Est GFR (African American) 92.8; Potassium 3.8 mmol/L (3.5-5.1)
[2020-03-09] MEDS: KETOROLAC TROMETHAMINE 10 MG TABLET PO PRN (08:26)
--- NOTE | 2020-03-09 12:58 | Hospitalist Progress Note ---
Date of Service March 09, 2020 Assessment & Plan (1) Facial cellulitis: Facial cellulitis Secondary to Trauma/Fall S/P sutures --Face CT:Interval development of moderate right facial subcutaneous infiltration since CT of March 02, 2020. This could reflect cellulitis or a contusion. No abscess. No acute facial fracture. Mild sinus mucosal thickening. --Head CT:No acute intracranial abnormality. --Vancomycin discontinued --Zosyn discontinued --Pain control --Tolerated regular diet --Continue Augmentin to complete the course (2) Alcohol abuse: H/O longstanding alcohol abuse Reports drinking sixpack of beer and 1 bottle of wine per day Alcohol level:216 Completed gabapentin protocol Lorazepam PRN Monitor for withdrawal symptoms Continue thiamine, folic acid Counseled to quit drinking (3) Suicide and self-inflicted injury: [address] H/O alcohol abuse, polysubstance abuse, mood disorder and suicide and self- inflicted injury Noncompliant with medications Currently denies suicidal ideation as per psychiatry Appreciate psychiatry input Doxepin discontinued Continue Lamictal, Seroquel, melatonin No current indication for inpatient psychiatric treatment as per psychiatry Patient refuses referrals as planning to move to [place] as per psychiatry Monitor Diarrhea Stool for C diff: Negative Imodium PRN Monitor Resolved (4) Seizure disorder: Stable Non compliant with medications continue Lamictal (5) DVT prophylaxis: SCDs Admission and Anticipated Discharge Date Admission Date: March 05, 2020 Subjective Patient is seen and examined at bedside No new complaints Reports nausea but no vomiting No withdrawal symptoms noted Lip pain continues to improve Tolerates diet Denies chest pain, SOB, dizziness, abdominal pain Review of Systems Review of Systems: All systems reviewed & are unremarkable except as noted in HPI & below Physical Exam Physical Exam: Physical Exam: Vitals signs as noted above General Appearance:Moderately built and nourished, no apparent distress Head: normocephalic, traumatic, Lip swelling improved, +sutures Eyes: normal inspection, EOMI Neck: supple, Trachea midline Respiratory/Chest: Normal breath sounds, CTA Cardiovascular: S1, S2, No murmur Abdomen/GI:Soft, Non tender, Bowel sounds present Extremities/Musculoskelatal:normal inspection, no edema Neurologic/Psych:AAOX3, grossly no focal neurological deficits Skin: normal color, warm Results & Data Results & Data ([facility]) Vital Signs (Past 12 Hours) Vital Signs Temp Pulse Resp BP Pulse Ox 10/25/20 08:04 36.7 C 80 18 122/85 98 Laboratory Results Short CBC 03/09/20 Range/Units 07:06 WBC 5.00 (4.8-10.8) K/uL Hgb 12.1 (12.0-16.0) g/dL Hct 37.6 (37-47) % Plt Count 120 L (130-400) K/uL BMP 03/09/20 07:06 Sodium 138 Potassium 3.8 Chloride 108 H Carbon Dioxide 24 BUN 10 Creatinine 0.97 Glucose 93 Calcium 9.7
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
== END 2020-03-09 14:15 | disposition home or self-care (01) | DRG 603 ==
LOC: 2W 10:57 → ED 10:57 → SUATTDRO 14:12 → 2W 16:49

== ENCOUNTER 2020-05-04 | Inpatient (IN) ==
[2020-05-04] MEDS ORDERED: ONDANSETRON INJ 2 MG/ML 2 ML VIAL ONE (00:16)
[2020-05-04] MEDS ORDERED: SODIUM CHLORIDE 0.9% 1000ML 2,000 ML IV ONE (00:29)
[2020-05-04] MEDS ORDERED: MoRPHine SULFATE 2 MG/ML CARP IV STA ×3 (00:29→02:06)
[2020-05-04] MEDS ORDERED: ONDANSETRON INJ 2 MG/ML 2 ML VIAL IV STA (00:29)
[2020-05-04 01:00] LABS: Basophils # (auto) 0.01 K/uL (0-0.2); Basophils % (auto) 0.1 %; Hematocrit (blood only) 42.2 % (37-47); Immature Granulocytes # (auto) 0.03 K/uL (0.00-0.02); Immature Granulocytes % (auto) 0.4 %; Lymphocytes # (auto) 0.46 K/uL (1.2-3.4); Lymphocytes % (auto) 5.6 %; Mean Corpuscular Hemoglobin 30.2 pg (25-34); Mean Corpuscular Hgb Conc 33.2 g/dL (32-36); Mean Corpuscular Volume 90.9 fL (80-100); Mean Platelet Volume 10.2 fL (7.4-10.4); Monocytes # (auto) 0.74 K/uL (0.11-0.59); Monocytes % (auto) 9.1 %; Neutrophils # (auto) 6.93 K/uL (1.4-6.5); Neutrophils % (auto) 84.8 %; Nucleated RBC # (auto) 0.03 K/uL (0-0); Nucleated RBC % (auto) 0.4 %; Platelet Count 108 K/uL (130-400); RDW Coefficient of Variation 18.5 % (11.5-14.5); RDW Standard Deviation 61.4 fL (36.4-46.3); Red Blood Count 4.64 M/uL (4.2-5.4); White Blood Count 8.17 K/uL (4.8-10.8)
[2020-05-04 01:07] LABS: Alanine Aminotransferase 127 U/L (12-78); Albumin Level 4.9 gm/dl (3.4-5.0); Aspartate Aminotransferase 241 U/L (15-37); BUN Creatinine Ratio 8.1 (10-20); Blood Urea Nitrogen 7 mg/dl (7-18); Calcium 9.8 mg/dl (8.5-10.1); Carbon Dioxide 11 mmol/L (21-32); Chloride 98 mmol/L (98-107); Creatinine Clr Calc Pharmacy 87.4 ml/min; Est GFR (African American) 105.8; Est GFR (Non-African American) 91.3; Glucose 152 mg/dl (70-99); Potassium 4.1 mmol/L (3.5-5.1); Sodium 133 mmol/L (136-145)
[2020-05-04 01:10] LABS: Albumin Globulin Ratio 1.1 (0.9-2); Alkaline Phosphatase 136 U/L (45-117); Globulin 4.5 gm/dl (2.5-4.0); Lipase 1762 U/L (73-393); Total Protein 9.4 gm/dl (6.4-8.2)
[2020-05-04] MEDS ORDERED: PROCHLORPERAZINE 1 ML IV ONE (01:19)
--- NOTE | 2020-05-04 03:24 | Emergency Department Note ---
Impression & Plan Pancreatitis ED Provider Note NAME: DINORA HICKS AGE: 25 SEX: F ARRIVES VIA: Ambulance INFORMANT: Patient ED PROVIDER(S): Page Ayers DO CHIEF COMPLAINT: Epigastric pain PLAN: Disposition: Admitted to the [facility] Condition: Stable MEDICAL DECISION MAKING: This is a 25-year-old female patient with history of alcohol abuse who presents to the emergency department with severe epigastric pain nausea and vomiting. The patient has a history of pancreatitis. The patient awoke this morning with epigastric pain that lasted throughout the day. She started to vomit around 7 PM this evening and now is unable to keep down [id number] nausea medications and water. The patient has an elevated lipase and severe epigastric pain that is intractable despite receiving multiple doses of IV morphine. The patient has had [address] scans of her abdomen pelvis in this calendar year. I did order ultrasound of the right upper quadrant to evaluate the gallbladder and liver. These were unremarkable. It seems the patient has recurrent alcoholic pancreatitis. She does have a history of alcohol abuse, pancreatitis with previous attempts at rehab. The patient will be evaluated by the [facility] Hospitalist service. Triage Nursing notes reviewed and agree them. Prior medical records reviewed Vital Signs: reviewed and remarkable for tachycardia Differential diagnosis: Pancreatitis, cholecystitis, ER treatment provided: IV normal saline hydration IV morphine IV Zofran IV Compazine IV morphine Diagnostics interpreted by me: Cardiac Monitoring: Sinus tachycardia at 104 Laboratory studies: See below Imaging studies: As per stat rad Ultrasound right upper quadrant: No evidence of acute cholecystitis. Gallbladder demonstrates normal wall thickness without distention or cholelithiasis. No intrahepatic or extrahepatic biliary dilatation HPI: 25/F arrives for evaluation of right upper quadrant abdominal pain epigastric pain. Patient has a history of pancreatitis and had been drinking beer 2 days ago. The patient awoke this morning with epigastric pain that lasted throughout the day. She started to vomit around 7 PM this evening and is now unable to keep down [id number] nausea medications and water. The patient admits that she did smoke marijuana earlier today to try to help with the nausea. The patient received Zofran in the ambulance. The patient does have a history of alcohol abuse. She has been to rehab in [place] and [place]. The patient recently was and had a miscarriage a couple weeks ago. ROS: See above HPI for pertinent positives & negatives. A total of 10 systems reviewed and were otherwise negative. PAST MEDICAL HISTORY:See Below PAST SURGICAL HISTORY:See Below FAMILY HISTORY:See Below SOCIAL HISTORY:See Below HOME MEDICATIONS:See list ALLERGIES:See list VITALS:See Below PHYSICAL EXAMINATION: General: The patient appears extremely uncomfortable on exam as she is unable to sit still HEENT: Head - normocephalic and atraumatic Pupils are equal, round, and reactive to light. Extraocular eye muscles are intact, and sclera are anicteric. Nose - moist nasal mucosa without discharge. Mouth - moist buccal mucosa. Oropharynx is nonerythematous and there is no tonsillar exudate or edema noted. Neck: Supple; no cervical lymphadenopathy Heart: Tachycardic rate and regular rhythm. There is a normal S1 and S2 with no murmurs, clicks, or gallops appreciated. Lungs: Clear to auscultation bilaterally with no wheezes, rales, or rhonchi. Abdomen: Soft, exquisite tenderness to palpation in the epigastrium, nondistended, with good bowel sounds. There are no palpable pulsatile masses or hepatosplenomegaly. There is no guarding, rigidity, or rebound noted. Extremities: No evidence of cyanosis, clubbing, or edema. There are easily palpable peripheral pulses. Skin: warm and dry with good turgor and no rashes. ED COURSE: Times/Reassessments: 0005: The patient was evaluated in room C10. A complete history and physical was performed. An IV lock was initiated and labs were drawn as above. Previous electronic medical records were reviewed. An order was placed for continuous cardiac monitoring. The patient was in a sinus tachycardia at 104. She was given an additional 4 mg of IV Zofran along with 2 L of IV normal saline solution as the patient appeared quite dehydrated. She was given 2 mg of IV morphine for pain. In reviewing the patient's medical records it seems that she has undergone 6 CT scans of the abdomen and pelvis in this calendar year. I do not feel comfortable scanning her again because of the radiation involved. She will go for ultrasound of the right upper quadrant. The patient continued to complain of severe pain and nausea. She was given an additional 2 mg of IV morphine and 5 mg of IV Compazine. She went for her ultrasound. Upon return from ultrasound, she continued to c omplain of abdominal pain. She was given a third dose of IV morphine-2 mg. I reviewed the results of the ultrasound with the patient. I discussed the case with Dr. Donaldson from the [facility] hospitalist service and she will be evaluated for further inpatient care. Page Ayers DO Past Med/Surg History Medical History (Updated 05/04/20 @ 03:57 by Page Ayers DO) Alcohol abuse Closed fracture of left distal radius Closed fracture of right olecranon process Marijuana use Mood disorder Polysubstance abuse Recurrent pancreatitis Seizure disorder Tobacco use disorder Surgical History History of orthopedic surgery Family History Other No significant family history Social History Smoking Status: Current every day smoker Tobacco Type: Cigarettes Cigarettes Per Day: 1 pack per day; Second Hand Exposure: No; Hx Alcohol Use: Yes Alcohol type: beer and wine Hx Substance Use: Yes Prescribed Medications: Marijuana Preferred Language: [place] Citizen Communication Ability: Effective Visual Impairment: No Limitations Turbogenerator Operator Required: No Beliefs That Will Affect Care: None marital status: Single Current Living Situation: Homeless Current Living Situation Comment: roomate Feels Safe at Home: Yes Assistive Devices: None Allergies Allergies Allergy/AdvReac Type Severity Reaction Status Date / Time amairani Allergy Mild GUMS SWELL Verified 05/04/20 01:11 mushroom Allergy Mild GUMS SWELL Verified 05/04/20 01:11 ketorolac [From Toradol] AdvReac Mild Irritable Verified 05/04/20 01:11 Home Meds Previous Rx's Medication Instructions Recorded quetiapine [Seroquel] 200 mg PO HS #30 tab 03/09/20 Results & Data (ED) Vital Signs Vital Signs - 24 hr 05/04/20 00:08 05/04/20 00:53 05/04/20 01:00 Temperature 36.4 C L Temperature Source Oral Pulse Rate 119 H 99 H 108 H Pulse Rate from SpO2 Sensor 99 H 103 H Respiratory Rate 24 15 15 Respiratory Depth Normal Blood Pressure 148/106 H 138/98 128/93 Blood Pressure Mean 120 112 98 Pulse Oximetry 99 100 99 Oxygen Delivery Method Room Air Room Air Room Air Sepsis New/Unexplained Change in Mental Status N/A Sepsis Action Taken by Nursing No Action Required 05/04/20 01:01 05/04/20 01:30 05/04/20 01:31 Temperature Temperature Source Pulse Rate 103 H 110 H 108 H Pulse Rate from SpO2 Sensor 104 H 108 H 107 H Respiratory Rate 17 14 19 Respiratory Depth Blood Pressure 138/100 Blood Pressure Mean 115 Pulse Oximetry 99 100 100 Oxygen Delivery Method Room Air Room Air Room Air Sepsis New/Unexplained Change in Mental Status Sepsis Action Taken by Nursing 05/04/20 02:30 05/04/20 03:00 05/04/20 03:01 Temperature Temperature Source Pulse Rate 105 H 106 H 104 H Pulse Rate from SpO2 Sensor 104 H 106 H 105 H Respiratory Rate 12 27 H 25 H Respiratory Depth Blood Pressure 137/97 125/93 Blood Pressure Mean 105 104 Pulse Oximetry 98 98 98 Oxygen Delivery Method Room Air Room Air Room Air Sepsis New/Unexplained Change in Mental Status Sepsis Action Taken by Nursing Laboratory Data Result diagrams: 05/04/20 00:16 05/04/20 00:16 Lab Results 05/04/20 05/04/20 05/04/20 Range/Units 00:16 00:16 00:16 WBC 8.17 (4.8-10.8) K/uL RBC 4.64 (4.2-5.4) M/uL Hgb 14.0 (12.0-16.0) g/dL Hct 42.2 (37-47) % MCV 90.9 (80-100) fL MCH 30.2 (25-34) pg MCHC 33.2 (32-36) g/dL RDW Std Deviation 61.4 H (36.4-46.3) fL RDW Coeff of Nayana 18.5 H (11.5-14.5) % Plt Count 108 L (130-400) K/uL MPV 10.2 (7.4-10.4) fL Immature Gran % (Auto) 0.4 % Neut % (Auto) 84.8 % Lymph % (Auto) 5.6 % [place] % (Auto) 9.1 % Eos % (Auto) 0.0 % Baso % (Auto) 0.1 % Neut # (Auto) 6.93 H (1.4-6.5) K/uL Lymph # (Auto) 0.46 L (1.2-3.4) K/uL [place] # (Auto) 0.74 H (0.11-0.59) K/uL Eos # (Auto) 0.00 (0-0.5) K/uL Baso # (Auto) 0.01 (0-0.2) K/uL Immature Gran # (Auto) 0.03 H (0.00-0.02) K/uL Absolute Nucleated RBC 0.03 H (0-0) K/uL Nucleated RBC % (auto) 0.4 % Sodium 133 L (136-145) mmol/L Potassium 4.1 (3.5-5.1) mmol/L Chloride 98 (98-107) mmol/L Carbon Dioxide 11 L (21-32) mmol/L Anion Gap 24.0 H (3-11) BUN 7 (7-18) mg/dl Creatinine 0.87 (0.6-1.2) mg/dl Est Cr Clr Drug Dosing 87.4 ml/min Est GFR ( Amer) 105.8 Est GFR (Non-Af Amer) 91.3 BUN/Creatinine Ratio 8.1 L (10-20) Glucose 152 H (70-99) mg/dl Calcium 9.8 (8.5-10.1) mg/dl Magnesium 2.1 (1.8-2.4) mg/dl Total Bilirubin 1.0 (0.2-1) mg/dl AST 241 H (15-37) U/L ALT 127 H (12-78) U/L Alkaline Phosphatase 136 H (45-117) U/L Total Protein 9.4 H (6.4-8.2) gm/dl Albumin 4.9 (3.4-5.0) gm/dl Globulin 4.5 H (2.5-4.0) gm/dl Albumin/Globulin Ratio 1.1 (0.9-2) Lipase 1762 H (73-393) U/L HCG, Quant < 1 mIU/ml Administered Medications Discontinued Medications Sodium Chloride (Nss 1000ml) 2,000 mls @ 999 mls/hr IV .Q2H1M ONE Stop: 05/04/20 02:29 Last Infusion: 05/04/20 02:35 Dose: 0 mls/hr Documented by: [id number] Admin: 05/04/20 00:42 Dose: 999 mls/hr Documented by: [id number] Prochlorperazine (Compazine) 1 mls @ 1 mls/min IV ONE ONE Stop: 05/04/20 01:20 Last Admin: 05/04/20 01:24 Dose: 1 mls/min Documented by: [id number] Morphine Sulfate (Morphine Sulfate 2 Mg/Ml Carp) 2 mg IV NOW STA Stop: 05/04/20 00:30 Last Admin: 05/04/20 00:44 Dose: 2 mg Documented by: [id number] Morphine Sulfate (Morphine Sulfate 2 Mg/Ml Carp) 2 mg IV NOW STA Stop: 05/04/20 01:20 Last Admin: 05/04/20 01:27 Dose: 2 mg Documented by: [id number] Morphine Sulfate (Morphine Sulfate 2 Mg/Ml Carp) 2 mg IV NOW STA Stop: 05/04/20 02:07 Last Admin: 05/04/20 02:24 Dose: 2 mg Documented by: [id number] Ondansetron HCl (Ondansetron Inj 2 Mg/Ml 2 Ml Vial) 4 mg IV NOW STA Stop: 05/04/20 00:30 Last Admin: 05/04/20 00:42 Dose: 4 mg Documented by: [id number] Discharge Plan Visit Data Chief Complaint: Abdominal Pain Stated Complaint: ABDOMINAL PAIN ED Provider: Page Ayers Discharge Problem: Pancreatitis Forms Stand Alone Forms: [employer] Prescriptions Prescriptions: No Action quetiapine [Seroquel] 200 mg Tablet 200 mg PO HS Qty: 30 RF: 0 Discharge Problem: Pancreatitis Qualifiers: Chronicity: acute Pancreatitis type: alcohol induced Acute pancreatitis complication: no infection or necrosis Qualified Code(s): K85.20 - Alcohol induced acute pancreatitis without necrosis or infection
[2020-05-04] MEDS ORDERED: SODIUM CHLORIDE 0.9% 500 ML IV SCH (03:30)
[2020-05-04] MEDS ORDERED: LACTATED RINGER'S 1,000 ML IV STA (03:34)
[2020-05-04] MEDS ORDERED: THIAMINE HCL 100 MG in SYRINGE 9 ML IV STA (03:35)
[2020-05-04] MEDS ORDERED: MoRPHine SULFATE 2 MG/ML CARP IV PRN (03:41)
[2020-05-04] MEDS ORDERED: GABAPENTIN 600 MG TAB PO STA (03:46)
[2020-05-04 03:49] LABS: Magnesium 2.1 mg/dl (1.8-2.4)
[2020-05-04] MEDS ORDERED: PROMETHAZINE 12.5 MG/50.5 ML NSS IV ONE (03:53)
[2020-05-04 04:03] LABS: Prothrombin Time 10.7 Seconds (9.0-12.0)
--- NOTE | 2020-05-04 04:15 | History & Physical Report ---
Date of Service May 04, 2020 Assessment & Plan (1) Abdominal pain: Multifactorial : Recurrent alcoholic pancreatitis Uncomplicated UTI/cystitis, no sepsis Constipation AGMA secondary to illness mild alcoholic hepatitis Alcohol withdrawal anxiety/mood disorder, at baseline ongoing tobacco abuse chronic thrombocytopenia secondary to chronic liver disease Hyperglycemia rule out DM Medical telemetry IVF, bowel rest, judicious narcotic use given history of substance abuse. GI consult Re: Recurrent pancreatitis Following cultures, IV Ceftriaxone Bowel regimen DT precautions/LEANA S Nicotine patch PRN Check hemoglobin A1c Social service RE discharge planning DVT prophylaxis. SCDs RE thrombocytopenia Full code Text document was generated using [employer] voice recognition software. It may contain grammatical or spelling errors. Kindly contact undersigned for clarification of any documentation item in question. History of Present Illness Chief Complaint: Worst abdominal pain Primary Care Provider: William Mullins MD History obtained from patient and records. Medical history significant for anxiety/mood disorder, ongoing tobacco/alcohol abuse, recurrent pancreatitis, chronic thrombocytopenia. Recent confinement February 2020 for alcohol abuse, traumatic facial cellulitis. Patient had a few beers last . Last night patient noted achy epigastric pain going to her back similar to pancreatitis episode in the past but much worse. Some chills. No chest pain. Short of breath because of abdominal pain. Urinary incontinence as per patient. Emesis and constipation at home. Medical History as above Surgical History : D&C Family History : Hypertension Personal/Social history : 5 cigarettes a day, daily EtOH intake the last week, currently unemployed Allergies Allergy/AdvReac Type Severity Reaction Status Date / Time amairani Allergy Mild GUMS SWELL Verified 05/04/20 01:11 mushroom Allergy Mild GUMS SWELL Verified 05/04/20 01:11 ketorolac [From Toradol] AdvReac Mild Irritable Verified 05/04/20 01:11 Home Medications Medication Instructions Recorded Confirmed Type quetiapine [Seroquel] 200 mg PO HS #30 tab 03/09/20 05/04/20 Rx Past Med/Surg History Medical History Alcohol abuse Closed fracture of left distal radius Closed fracture of right olecranon process Marijuana use Mood disorder Polysubstance abuse Recurrent pancreatitis Seizure disorder Tobacco use disorder Surgical History History of orthopedic surgery Family History Other No significant family history Social History Smoking Status: Current every day smoker Tobacco Type: Cigarettes Cigarettes Per Day: 1 pack per day; Second Hand Exposure: No; Hx Alcohol Use: Yes Alcohol type: beer and wine Hx Substance Use: Yes Prescribed Medications: Marijuana Last Used Substance: Just Prior to Arrival Preferred Language: Austrian Communication Ability: Effective Visual Impairment: No Limitations Fiber Technologist Required: No Beliefs That Will Affect Care: None marital status: Single Current Living Situation: Homeless Current Living Situation Comment: roomate Feels Safe at Home: Yes Assistive Devices: None Review of Systems Review of Systems: As per HPI, all 10 systems reviewed, all other ROS negative Physical Exam Physical Exam: GENERAL: uncomfortable, no respiratory distress SKIN: Normal color, warm HEENT: [place] palpebral conjunctivae, no ptosis, dry buccal mucosa NECK : Supple, no tenderness CHEST : CTA, no tenderness HEART : Tachycardic, no obvious murmurs ABDOMEN: Some distention, epigastric tenderness EXTREMITIES : No LE swelling/tenderness, no other conspicuous deformities noted NEUROLOGIC : Coherent, no facial asymmetry, no other gross focality Results & Data Results & Data ([facility]) Vital Signs (Past 12 Hours) Vital Signs Temp Pulse Resp BP Pulse Ox 05/04/20 03:31 109 H 24 98 05/04/20 03:30 107 H 24 128/93 98 05/04/20 03:01 104 H 25 H 98 05/04/20 03:00 106 H 27 H 125/93 98 05/04/20 02:30 105 H 12 137/97 98 05/04/20 01:31 108 H 19 100 05/04/20 01:30 110 H 14 138/100 100 05/04/20 01:01 103 H 17 99 05/04/20 01:00 108 H 15 128/93 99 05/04/20 00:53 99 H 15 138/98 100 05/04/20 00:08 36.4 C L 119 H 24 148/106 H 99 Laboratory Results Laboratory Results WBC 8.17 K/uL (4.8-10.8) 05/04/20 00:16 RBC 4.64 M/uL (4.2-5.4) 05/04/20 00:16 Hgb 14.0 g/dL (12.0-16.0) 05/04/20 00:16 Hct 42.2 % (37-47) 05/04/20 00:16 MCV 90.9 fL (80-100) 05/04/20 00:16 MCH 30.2 pg (25-34) 05/04/20 00:16 MCHC 33.2 g/dL (32-36) 05/04/20 00:16 RDW Std Deviation 61.4 fL (36.4-46.3) H 05/04/20 00:16 RDW Coeff of [place] 18.5 % (11.5-14.5) H 05/04/20 00:16 Plt Count 108 K/uL (130-400) L 05/04/20 00:16 MPV 10.2 fL (7.4-10.4) 05/04/20 00:16 Immature Gran % (Auto) 0.4 % 05/04/20 00:16 Neut % (Auto) 84.8 % 05/04/20 00:16 Lymph % (Auto) 5.6 % 05/04/20 00:16 [place] % (Auto) 9.1 % 05/04/20 00:16 Eos % (Auto) 0.0 % 05/04/20 00:16 Baso % (Auto) 0.1 % 05/04/20 00:16 Neut # (Auto) 6.93 K/uL (1.4-6.5) H 05/04/20 00:16 Lymph # (Auto) 0.46 K/uL (1.2-3.4) L 05/04/20 00:16 [place] # (Auto) 0.74 K/uL (0.11-0.59) H 05/04/20 00:16 Eos # (Auto) 0.00 K/uL (0-0.5) 05/04/20 00:16 Baso # (Auto) 0.01 K/uL (0-0.2) 05/04/20 00:16 Immature Gran # (Auto) 0.03 K/uL (0.00-0.02) H 05/04/20 00:16 Absolute Nucleated RBC 0.03 K/uL (0-0) H 05/04/20 00:16 Nucleated RBC % (auto) 0.4 % 05/04/20 00:16 PT 10.7 Seconds (9.0-12.0) 05/04/20 00:16 INR 1.0 (0.9-1.1) 05/04/20 00:16 Sodium 133 mmol/L (136-145) L 05/04/20 00:16 Potassium 4.1 mmol/L (3.5-5.1) 05/04/20 00:16 Chloride 98 mmol/L (98-107) 05/04/20 00:16 Carbon Dioxide 11 mmol/L (21-32) L 05/04/20 00:16 Anion Gap 24.0 (3-11) H 05/04/20 00:16 BUN 7 mg/dl (7-18) 05/04/20 00:16 Creatinine 0.87 mg/dl (0.6-1.2) 05/04/20 00:16 Est Cr Clr Drug Dosing 87.4 ml/min 05/04/20 00:16 Est GFR ( Amer) 105.8 05/04/20 00:16 Est GFR (Non-Af Amer) 91.3 05/04/20 00:16 BUN/Creatinine Ratio 8.1 (10-20) L 05/04/20 00:16 Glucose 152 mg/dl (70-99) H 05/04/20 00:16 Calcium 9.8 mg/dl (8.5-10.1) 05/04/20 00:16 Magnesium 2.1 mg/dl (1.8-2.4) 05/04/20 00:16 Total Bilirubin 1.0 mg/dl (0.2-1) 05/04/20 00:16 AST 241 U/L (15-37) H 05/04/20 00:16 ALT 127 U/L (12-78) H 05/04/20 00:16 Alkaline Phosphatase 136 U/L (45-117) H 05/04/20 00:16 Total Protein 9.4 gm/dl (6.4-8.2) H 05/04/20 00:16 Albumin 4.9 gm/dl (3.4-5.0) 05/04/20 00:16 Globulin 4.5 gm/dl (2.5-4.0) H 05/04/20 00:16 Albumin/Globulin Ratio 1.1 (0.9-2) 05/04/20 00:16 Lipase 1762 U/L (73-393) H 05/04/20 00:16 TSH 2.680 uIu/ml (0.300-4.500) 05/04/20 00:16 HCG, Quant < 1 mIU/ml 05/04/20 00:16 Diagnostic Findings Ultrasound right upper quadrant initial read: No acute cholecystitis. Hepatic steatosis. CT abdomen pelvis initial read: Acute edematous pancreatitis. Fatty liver. Borderline diffuse urinary bladder wall prominence. Normal appendix Chest x-ray as per my interpretation no infiltrate
[2020-05-04] MEDS ORDERED: OPTIRAY 320 100ml IV ONE (04:20)
[2020-05-04 04:34] LABS: Troponin I < 0.015 ng/ml (0-0.045)
[2020-05-04 05:18] LABS: Appearance Urine Clear (Clear); Bacteria Urine Automated Negative (Negative); Bilirubin Urine Negative (Negative); Blood Urine 2+ (Negative); Color Urine Yellow; Epithelial Cell Urine Auto 20-30 /lpf (0-5); Glucose Urine UA Negative (Negative); Ketones Urine 4+ (Negative); Leukocyte Esterase Urine Negative (Negative); Nitrite Urine Negative (Negative); Protein Urine 2+ (Negative); Specific Gravity Urine 1.022 (1.000-1.030); Urobilinogen Urine Negative (Negative)
[2020-05-04 05:34] LABS: Amphetamines+Metham, Urine Neg (Neg); Barbiturates, Urine Neg (Neg); Benzodiazepine, Urine Neg (Neg); Cocaine, Urine Neg (Neg); MDMA (Ecstacy), Urine Neg (Neg); Methadone, Urine Neg (Neg); Opiate, Urine Neg (Neg); Phencyclidine, Urine Neg (Neg)
[2020-05-04] MEDS ORDERED: cefTRIAXone SODIUM 1,000 MG/50 ML BAG IV STA (06:21)
[2020-05-04] MEDS ORDERED: POLYETHYLENE (MIRALAX) 17 GM PACK PO PRN (06:22)
[2020-05-04 07:10] LABS: Base Excess VBG -6.5 mEq/L; Oxygen Saturation VBG 88.5 %; pH VBG 7.4 (7.36-7.41)
[2020-05-04 07:18] LABS: BUN Creatinine Ratio 8.3 (10-20); Calcium 8.5 mg/dl (8.5-10.1); Est GFR (Non-African American) 121.7
[2020-05-04] MEDS: LACTATED RINGER'S 1,000 ML IV SCH ×4 (07:19→20:46)
[2020-05-04] MEDS ORDERED: LORazepam 3 MG/6 ML VIAL IV PRN (08:18)
[2020-05-04] MEDS ORDERED: ATIVAN IV ALCOHOL WITHDRAWL IV PRN (08:18)
[2020-05-04] MEDS ORDERED: GABAPENTIN 1200MG ALCOHOL WITHDRAWAL LOAD PO STA (08:18)
--- NOTE | 2020-05-04 08:18 | XRay Report ---
XR chest 1V portable HISTORY: 25 years-old Female tachypnea acute tachypnea COMPARISON: CT abdomen and pelvis of same day, chest radiograph 11/29/2019 TECHNIQUE: Portable AP view of the chest FINDINGS: Cardiomediastinal and hilar silhouettes are within normal limits. Calcified granuloma of the lateral right midlung. No pneumothorax, pleural effusion, airspace consolidation or overt pulmonary edema. Waqar jaja of the chest appear grossly intact. IMPRESSION: No acute process. ACT 112: Negative or not required by law. The above report was generated using voice recognition software. It may contain grammatical, syntax o r spelling errors. Electronically signed by: Jose Abraham M.D. 05/04/2020 8:17 AM
--- NOTE | 2020-05-04 08:40 | Ultrasound Report ---
US gallbladder HISTORY: 25 years-old Female eval gall bladder and pancreas acute right upper quadrant abdominal suzy n COMPARISON: CT abdomen and pelvis of same day TECHNIQUE: Multiple real-time sonographic images of the abdominal right upper quadrant were obtained assessing grayscale appearance and color flow FINDINGS: Increased echogenicity of the liver with poor through transmission. No hepatic mass or intrahepatic b iliary ductal dilation. Common bile duct is normal, 4 mm. Unremarkable gallbladder without shadowing cholelithiasis, wall thickening or pericholecystic fluid. Sonographic [place] sign was reported as neg ative. The patient however is reportedly tender in the abdominal midline. Imaged right kidney is unremarkable without hydronephrosis. Nonvisualization of the pancreas secondar y to obscuring bowel gas. IMPRESSION: 1. Nonvisualization of the pancreas secondary to obscuring bowel gas. 2. Hepatic steatosis. 3. No cholelithiasis or sonographic evidence of acute cholecystitis. 4. No biliary ductal dilation. ACT 112: Negative or not required by law. The above report was generated using voice recognition software. It may contain grammatical, syntax o r spelling errors. Electronically signed by: Jose Abraham M.D. 05/04/2020 8:39 AM
[2020-05-04] MEDS: DOCUSATE SODIUM/SENNA 50/8.6MG TAB PO SCH (08:52)
[2020-05-04] MEDS: FOLIC ACID 1 MG TAB PO SCH (08:52)
--- NOTE | 2020-05-04 09:02 | CT Scan Report ---
ABDOMEN AND PELVIS CT WITH IV CONTRAST CT DOSE: 278.60 mGy.cm HISTORY: Acute epigastric abdominal pain worst abd pain as per px TECHNIQUE: Multiaxial CT images of the abdomen and pelvis were performed following the IV administrat ion of 93 cc of Optiray 320, A dose lowering technique was utilized adhering to the principles of AL JOÃO. COMPARISON STUDY: Right upper quadrant abdominal ultrasound of same day, CT abdomen hand pelvis 2019. FINDINGS: Clear lung bases. There is no pneumatosis or pneumoperitoneum. The imaged inferior cardiac chambers are unremarkable. There are a few calcified granulomata noted within the spleen. The adrenal glands, and gallbladder appear unremarkable. Severe hepatic steatosis. Patency of the hepatic and po rtal veins. The splenic vein and superior mesenteric veins are also patent. There is moderate interstitial and peripancreatic edema/reactive free fluid compatible with acute bedolla creatitis. There is homogeneous enhancement of the pancreas without acute peripancreatic fluid collec tion or pancreatic ductal dilation. No pancreatic mass. Normal kidneys. No hydronephrosis. Partial distention of the urinary bladder with mild wall thickenin g. Follicular changes of the ovaries. Unremarkable uterus. Fluid distended vagina. Aorta and IVC are unremarkable. There is no adenopathy. No bowel obstruction or bowel wall thickening. There is partial distention involving the majority of the colon. Noninflamed appendix. Soft tissues are unremarkable. Bones appear intact. IMPRESSION: 1. Acute uncomplicated pancreatitis. No pancreatic ductal dilation, pancreatic necrosis or acute kyle pancreatic fluid collection. 2. Severe hepatic steatosis. 3. No bowel obstruction or bowel wall thickening. Normal appendix. ACT 112: Negative or not required by law. The above report was generated using voice recognition software. It may contain grammatical, syntax o r spelling errors. Electronically signed by: Jose Abraham M.D. 05/04/2020 9:01 AM
--- NOTE | 2020-05-04 09:16 | Gastrointestinal Consultation ---
Date of Consultation May 04, 2020 Assessment & Plan (1) Abdominal pain: (2) Alcohol intoxication: (3) Pancreatitis: likely alcoholic, moderate-severe. Recs: --follow up final read of CT A/P --NPO --aggressive IV hydration with LR or NS at 250-500 mL/hr in the first 24 hours --pain control prn, anti-emetics prn --needs strict alcohol cessation and alcohol rehab as she has relapsed Thank you for allowing me to participate in the care of this patient History of Present Illness Attending Physician: Nathan Grissom MD 25 yo female with hx alcoholic pancreatitis and ETOH abuse who presents with abdominal pains and nausea/vomiting. She reports pain is epigastric radiating to her back, similar her to previous episodes of pancreatitis but more severe, 02/22. Also notes nausea and vomiting. Has decreased appetite normally, denies wt loss, also notes constipation but denies hematochezia, hematemesis. She was in ETOH rehab in 02/2020, then relapsed after that and notes drinking a six pack of beer on 05/01. US abdomen shows no cholethiasis and normal CBD. lipase over 1500, normal tbili. labs reviewed, VSS. Allergies Allergy/AdvReac Type Severity Reaction Status Date / Time amairani Allergy Mild GUMS SWELL Verified 05/04/20 01:11 mushroom Allergy Mild GUMS SWELL Verified 05/04/20 01:11 ketorolac [From Toradol] AdvReac Mild Irritable Verified 05/04/20 01:11 Home Medications Medication Instructions Recorded Confirmed Type quetiapine [Seroquel] 200 mg PO HS #30 tab 03/09/20 05/04/20 Rx Patient History Medical History Alcohol abuse Closed fracture of left distal radius Closed fracture of right olecranon process Marijuana use Mood disorder Polysubstance abuse Recurrent pancreatitis Seizure disorder Tobacco use disorder Surgical History History of orthopedic surgery Family History Other No significant family history Social History Smoking Status: Current every day smoker Tobacco Type: Cigarettes Cigarettes Per Day: 1 pack per day; Second Hand Exposure: No; Hx Alcohol Use: Yes Alcohol type: beer and wine Hx Substance Use: Yes Prescribed Medications: Marijuana Last Used Substance: Just Prior to Arrival Preferred Language: Urdu Communication Ability: Effective Visual Impairment: No Limitations Biology Research Assistant Required: No Beliefs That Will Affect Care: None marital status: Single Current Living Situation: Homeless Current Living Situation Comment: roomate Feels Safe at Home: Yes Assistive Devices: None Review of Systems Constitutional: no fever, no chills and no weight loss Eyes: as per Subjective / HPI Ear, Nose, Mouth, Throat: as per Subjective / HPI Respiratory: no dyspnea and no dyspnea on exertion Cardiovascular: no chest pain and no palpitations Gastrointestinal: as per Subjective / HPI Musculoskeletal: no joint pain and no swelling Integumentary: no rash and no lesions Neurologic: no numbness and no paresthesia Psychiatric: no depression and no anxiety Endocrine: no fatigue Hematologic / Lymphatic: no easy bleeding and no easy bruising Physical Exam Constitutional: WD/WN, vitals as above Eyes: EOM intact bilaterally Neck: normal visual inspection Respiratory: normal respiratory effort, lungs clear to auscultation Cardiovascular: RRR, no murmur, no edema Gastrointestinal (Abdomen): Inspection/Auscultation: abdomen normal to inspection; abdomen not distended Percussion/Palpation: + abdomen tender (epigastric, severe) and abdomen soft; no hepatosplenomegaly Musculoskeletal: Extremities: no cyanosis Gait: normal gait Skin: no rashes, warm and dry Neurologic: moves all extremities Psychiatric: A+Ox3, euthymic affect Results & Data ([facility]) Vital Signs (Past 12 Hours) Vital Signs Temp Pulse Pulse Resp BP BP Pulse Ox 05/04/20 08:18 36.8 C 101 H 18 126/84 100 05/04/20 07:30 106 H 17 130/99 98 05/04/20 06:31 100 H 21 99 05/04/20 06:30 113 H 19 138/95 100 05/04/20 06:01 100 H 24 99 05/04/20 06:00 109 H 20 136/101 H 99 05/04/20 05:31 98 H 24 99 05/04/20 05:30 99 H 19 138/92 100 05/04/20 05:00 112 H 16 100 05/04/20 04:31 106 H 15 132/102 H 100 05/04/20 04:30 116 H 18 98 05/04/20 04:00 111 H 20 127/88 99 05/04/20 03:31 109 H 24 98 05/04/20 03:30 107 H 24 128/93 98 05/04/20 03:01 104 H 25 H 98 05/04/20 03:00 106 H 27 H 125/93 98 05/04/20 02:30 105 H 12 137/97 98 05/04/20 01:31 108 H 19 100 05/04/20 01:30 110 H 14 138/100 100 05/04/20 01:01 103 H 17 99 05/04/20 01:00 108 H 15 128/93 99 05/04/20 00:53 99 H 15 138/98 100 05/04/20 00:08 36.4 C L 119 H 24 148/106 H 99 PG Care Time/CCT Total # of Minutes Spent Total Time Spent with Patient: Total time spent is greater than 50% in coordination of care (as documented) at patient's floor/unit and/or counseling patient: Coding Level of Care Code 54271 Inpt Consult Level 4 Diagnoses Abdominal pain R10.9 Alcohol intoxication F10.920 Complication of substance-induced condition: uncomplicated Pancreatitis K85.20 Acute pancreatitis complication: no infection or necrosis Chronicity: acute Pancreatitis type: alcohol induced (1) Alcohol intoxication Complication of substance-induced condition: uncomplicated Qualified Code(s): F10.920 - Alcohol use, unspecified with intoxication, uncomplicated (2) Pancreatitis Acute pancreatitis complication: no infection or necrosis Chronicity: acute Pancreatitis type: alcohol induced Qualified Code(s): K85.20 - Alcohol induced acute pancreatitis without necrosis or infection
[2020-05-04] MEDS: PROMETHAZINE HCL 12.5 MG in SODIUM CHLORIDE 0.9% 50 ML IV PRN ×3 (09:28→23:12)
[2020-05-04] MEDS: FAMOTIDINE 20 MG in SYRINGE 3 ML IV SCH ×2 (12:22→20:52)
[2020-05-04] MEDS: GABAPENTIN 600 MG TAB PO SCH ×2 (12:22→17:07)
[2020-05-04] MEDS: MoRPHine SULFATE 2 MG/ML CARP IV PRN ×2 (12:23→20:43)
--- NOTE | 2020-05-04 14:18 | Hospitalist Progress Note ---
Date of Service May 04, 2020 Assessment & Plan (1) Abdominal pain: Recurrent Alcoholic pancreatitis Hepatic Steatosis Metabolic acidosis -CT ABD:Acute uncomplicated pancreatitis. No pancreatic ductal dilation, pancreatic necrosis or acute peripancreatic fluid collection. Severe hepatic steatosis. No bowel obstruction or bowel wall thickening. Normal appendix. -Gall bladder USD: Nonvisualization of the pancreas secondary to obscuring bowel gas. Hepatic steatosis. No cholelithiasis or sonographic evidence of acute cholecystitis. No biliary ductal dilation. -Monitor for development of alcoholic hepatitis -Continue aggressive IV fluids -Pain control -Bowel rest with n.p.o. -Appreciate GI input -Continue Pepcid Abnormal UA R/O UTI Denies any dysuria Urine culture pending Continue Rocephin empirically Constipation Continue bowel regimen Alcohol abuse Monitor for withdrawal Last Alcohol drink on 05/01/20 as per patient Continue gabapentin per protocol Ativan as needed Continue thiamine, folic acid Counseled on multiple occasions to quit drinking Refused alcohol rehab on prior admission Anxiety/mood disorder Continue home medication Ongoing tobacco abuse Nicotine patch Boomswing Operator to quit smoking Chronic thrombocytopenia Secondary to chronic liver disease No acute bleeding issues Monitor platelets Hyperglycemia R/O DM II HbA1C:pending Seizure disorder As per records Currently not taking any meds DVT Px: SCDs RE thrombocytopenia Code Status Full code Admission and Anticipated Discharge Date Admission Date: May 04, 2020 Subjective Patient is seen and examined at bedside States having significant epigastric abdominal pain Also states having nausea but no vomiting Denies any chest pain, shortness of breath, dizziness Offers no other complaints Review of Systems Review of Systems: All systems reviewed & are unremarkable except as noted in HPI & below Physical Exam Physical Exam: Physical Exam: Vitals signs as noted above General Appearance:Moderately built and nourished, no apparent distress Head: normocephalic, Atraumatic Eyes: normal inspection, EOMI Neck: supple, Trachea midline Respiratory/Chest: Normal breath sounds, CTA Cardiovascular: S1, S2, No murmur Abdomen/GI:Soft, epigastric tender, Bowel sounds present Extremities/Musculoskelatal:normal inspection, no edema Neurologic/Psych:AAOX3, grossly no focal neurological deficits Skin: normal color, warm Results & Data Results & Data ([facility]) Vital Signs (Past 12 Hours) Vital Signs Temp Pulse Pulse Resp BP BP Pulse Ox 05/04/20 11:55 37.3 C 121 H 18 133/89 99 05/04/20 09:34 89 05/04/20 08:18 36.8 C 101 H 18 126/84 100 05/04/20 07:30 106 H 17 130/99 98 05/04/20 06:31 100 H 21 99 05/04/20 06:30 113 H 19 138/95 100 05/04/20 06:01 100 H 24 99 05/04/20 06:00 109 H 20 136/101 H 99 05/04/20 05:31 98 H 24 99 05/04/20 05:30 99 H 19 138/92 100 05/04/20 05:00 112 H 16 100 05/04/20 04:31 106 H 15 132/102 H 100 05/04/20 04:30 116 H 18 98 05/04/20 04:00 111 H 20 127/88 99 05/04/20 03:31 109 H 24 98 05/04/20 03:30 107 H 24 128/93 98 05/04/20 03:01 104 H 25 H 98 05/04/20 03:00 106 H 27 H 125/93 98 05/04/20 02:30 105 H 12 137/97 98 Laboratory Results Short CBC 05/04/20 Range/Units 00:16 WBC 8.17 (4.8-10.8) K/uL Hgb 14.0 (12.0-16.0) g/dL Hct 42.2 (37-47) % Plt Count 108 L (130-400) K/uL BMP 05/04/20 05/04/20 00:16 06:41 Sodium 133 L 137 Potassium 4.1 4.0 Chloride 98 106 Carbon Dioxide 11 L 17 L BUN 7 5 L Creatinine 0.87 0.65 Glucose 152 H 122 H Calcium 9.8 8.5 Cardiac Enzymes 05/04/20 Range/Units 00:16 Troponin I < 0.015 (0-0.045) ng/ml Liver Function 05/04/20 Range/Units 00:16 Total Bilirubin 1.0 (0.2-1) mg/dl AST 241 H (15-37) U/L ALT 127 H (12-78) U/L Alkaline Phosphatase 136 H (45-117) U/L Albumin 4.9 (3.4-5.0) gm/dl Urine 05/04/20 Range/Units 04:57 Urine Color Yellow Urine Appearance Clear (Clear) Urine pH 5.0 (4.5-7.5) Ur Specific [place] 1.022 (1.000-1.030) Urine Protein 2+ H (Negative) Urine Glucose (UA) Negative (Negative)
[2020-05-04] MEDS: QUEtiapine FUMARATE 200 MG TAB PO SCH (20:46)
[2020-05-05] MEDS: LACTATED RINGER'S 1,000 ML IV SCH ×2 (03:31→08:23)
[2020-05-05] MEDS: GABAPENTIN 600 MG TAB PO SCH ×3 (03:31→17:38)
[2020-05-05] MEDS: LORazepam 1 MG/2 ML VIAL IV PRN ×2 (03:52→16:31)
[2020-05-05] MEDS: MoRPHine SULFATE 2 MG/ML CARP IV PRN ×2 (03:55→16:31)
[2020-05-05] MEDS ORDERED: cefTRIAXone SODIUM 1,000 MG in DEXTROSE 5% 50 ML IV SCH (06:00)
[2020-05-05 07:10] LABS: Hematocrit (blood only) 34.3 % (37-47); Hemoglobin 11.3 g/dL (12.0-16.0); Mean Corpuscular Hemoglobin 29.9 pg (25-34); Mean Corpuscular Hgb Conc 32.9 g/dL (32-36); Mean Corpuscular Volume 90.7 fL (80-100); RDW Coefficient of Variation 18.9 % (11.5-14.5); Red Blood Count 3.78 M/uL (4.2-5.4); White Blood Count 4.89 K/uL (4.8-10.8)
[2020-05-05 07:40] LABS: Alanine Aminotransferase 48 U/L (12-78); Albumin Level 2.9 gm/dl (3.4-5.0); Aspartate Aminotransferase 69 U/L (15-37); BUN Creatinine Ratio 4.8 (10-20); Blood Urea Nitrogen 2 mg/dl (7-18); Calcium 7.9 mg/dl (8.5-10.1); Carbon Dioxide 24 mmol/L (21-32); Chloride 101 mmol/L (98-107); Creatinine Clr Calc Pharmacy 165.3 ml/min; Est GFR (African American) > 150.0; Est GFR (Non-African American) 136.3; Glucose 68 mg/dl (70-99); Magnesium 1.5 mg/dl (1.8-2.4); Potassium 2.8 mmol/L (3.5-5.1); Sodium 138 mmol/L (136-145)
[2020-05-05 07:42] LABS: Estimated Average Glucose 103 mg/dl; Hemoglobin A1C 5.2 % (4.5-5.6)
[2020-05-05 07:43] LABS: Albumin Globulin Ratio 1.1 (0.9-2); Alkaline Phosphatase 74 U/L (45-117); Bilirubin,Total 0.7 mg/dl (0.2-1); Globulin 2.7 gm/dl (2.5-4.0); Lipase 2357 U/L (73-393); Total Protein 5.6 gm/dl (6.4-8.2)
[2020-05-05 08:00] LABS: Basophils # (auto) 0.01 K/uL (0-0.2); Basophils % (auto) 0.2 %; Eosinophils # (auto) 0.03 K/uL (0-0.5); Eosinophils % (auto) 0.6 %; Immature Granulocytes # (auto) 0.02 K/uL (0.00-0.02); Immature Granulocytes % (auto) 0.4 %; Lymphocytes # (auto) 1.52 K/uL (1.2-3.4); Lymphocytes % (auto) 31.1 %; Mean Platelet Volume 9.9 fL (7.4-10.4); Monocytes # (auto) 0.57 K/uL (0.11-0.59); Monocytes % (auto) 11.7 %; Neutrophils # (auto) 2.74 K/uL (1.4-6.5); Platelet Count 66 K/uL (130-400); Platelet Estimate Decreased (Normal)
[2020-05-05] MEDS: oxyCODONE HCL IR 5 MG TAB (IMMEDIATE RELEASE) PO PRN ×2 (08:25→18:42)
[2020-05-05] MEDS: ACETAMINOPHEN 325 MG TAB PO PRN (08:26)
[2020-05-05] MEDS: THIAMINE HCL 100 MG TAB PO SCH (08:27)
[2020-05-05] MEDS: LORazepam 2 MG/4 ML VIAL IV PRN ×2 (08:27→10:35)
[2020-05-05] MEDS: FOLIC ACID 1 MG TAB PO SCH (08:28)
[2020-05-05] MEDS: DOCUSATE SODIUM/SENNA 50/8.6MG TAB PO SCH (08:33)
[2020-05-05] MEDS: FAMOTIDINE 20 MG in SYRINGE 3 ML IV SCH ×2 (08:38→20:40)
[2020-05-05] MEDS ORDERED: POTASSIUM CHLORIDE CRTAB 20 MEQ TABCR PO ONE ×2 (09:15→16:00)
[2020-05-05] MEDS ORDERED: POTASSIUM CHLORIDE 40 MEQ in SODIUM CHLORIDE 0.9% 1000ML 1,000 ML IV SCH (09:45)
[2020-05-05] MEDS: PROMETHAZINE HCL 12.5 MG in SODIUM CHLORIDE 0.9% 50 ML IV PRN ×2 (10:35→20:40)
[2020-05-05] MEDS: MAGNESIUM SULFATE / D5W 1 GM/100 ML BAG IV SCH ×2 (10:36→13:02)
[2020-05-05] MEDS: POTASSIUM CHLORIDE 40 MEQ in SODIUM CHLORIDE 0.9% 1000ML 1,000 ML IV SCH ×3 (10:36→22:48)
--- NOTE | 2020-05-05 12:21 | Electrocardiogram Report ---
Test Reason : Blood Pressure : / mmHG Vent. Rate : 104 BPM Atrial Rate : 104 BPM P-R Int : 130 ms QRS Dur : 074 ms QT Int : 328 ms P-R-T Axes : 054 058 040 degrees QTc Int : 431 ms Sinus tachycardia Cannot rule out Anterior infarct , age undetermined Abnormal ECG When compared with ECG of 15-NOV-2019 11:38, No significant change was found Confirmed by Marquez Contreras ([id number]) on 05/05/2020 12:21:10 PM Referred By: REFERRED SELF Confirmed By:Marquez Contreras
--- NOTE | 2020-05-05 13:43 | Gastroenterology Progress Note ---
Date of Service May 05, 2020 Assessment & Plan (1) Pancreatitis: 25 y/o female admitted with recurrent uncomplicated acute pancreatitis. This AM lipase trended up, though pt feeling improved. HGB appropriately decreased with IVF and WBC is WNL. On exam, abd soft, nondistended. - Would continue supportive care with IVF - Would keep NPO until abd pain improves more, would then cautiously initiate trial of clear liquids - Analgesia PRN - Antiemetics PRN - Trend lipase, LFTs, WBC - Recommended strict ETOH avoidance and consider ETOH rehab and this was discussed with her - GI will sign off, please call with questions (2) Abdominal pain: Admission and Anticipated Discharge Date Admission Date: May 04, 2020 Supervising Physician Co-Signing Physician Notes I saw and evaluated the patient. She was admitted with alcoholic pancreatitis and appears to be improving with IV hydration. Recommendation Advance diet to clears today and then as tolerated Cointinue IV hydration for another 24 hours Patient counseled about the need for abstinence Please call with any questions or concerns, GI to sign off Subjective Pt seen in f/u ETOH pancreatitis. This AM feeling somewhat improved; abd pain is less; she tolerated some sips of liquid this AM. Denies n/v, hematemesis, melena, hematochezia, abd distention, fever, chills, CP, SOB, leg swelling. Review of Systems Review of Systems: All systems reviewed & are unremarkable except as noted in HPI & below Physical Exam Constitutional: WD/WN, vitals as above no acute distress Eyes: PERRL, conjunctivae normal, anicteric sclerae Respiratory: normal respiratory effort, lungs clear to auscultation Cardiovascular: RRR, no murmur, no edema Gastrointestinal (Abdomen): normal bowel sounds, soft, nontender, no hepatosplenomegaly Skin: no rashes, warm and dry Psychiatric: A+Ox3, euthymic affect Results & Data ([facility]) Vital Signs (Past 12 Hours) Vital Signs Temp Pulse Pulse Resp BP Pulse Ox 05/05/20 11:36 36.6 C 95 H 16 102/71 95 05/05/20 09:56 155 H 20 110/78 97 05/05/20 07:17 37.3 C 120 H 20 108/68 97 05/05/20 05:34 95 H 05/05/20 03:00 37.1 C 109 H 18 98/60 L 92 Laboratory Results 05/05/20 05/05/20 05/04/20 Range/Units 06:17 06:17 00:16 WBC 4.89 (4.8-10.8) K/uL RBC 3.78 L (4.2-5.4) M/uL Hgb 11.3 L (12.0-16.0) g/dL Hct 34.3 L (37-47) % MCV 90.7 (80-100) fL MCH 29.9 (25-34) pg MCHC 32.9 (32-36) g/dL RDW Std Deviation 62.0 H (36.4-46.3) fL RDW Coeff of Nayana 18.9 H (11.5-14.5) % Plt Count 66 L (130-400) K/uL MPV 9.9 (7.4-10.4) fL Immature Gran % (Auto) 0.4 % Neut % (Auto) 56.0 % Lymph % (Auto) 31.1 % [place] % (Auto) 11.7 % Eos % (Auto) 0.6 % Baso % (Auto) 0.2 % Neut # (Auto) 2.74 (1.4-6.5) K/uL Lymph # (Auto) 1.52 (1.2-3.4) K/uL [place] # (Auto) 0.57 (0.11-0.59) K/uL Eos # (Auto) 0.03 (0-0.5) K/uL Baso # (Auto) 0.01 (0-0.2) K/uL Immature Gran # (Auto) 0.02 (0.00-0.02) K/uL Platelet Estimate Decreased L (Normal) Sodium 138 (136-145) mmol/L Potassium 2.8 L D (3.5-5.1) mmol/L Chloride 101 (98-107) mmol/L Carbon Dioxide 24 (21-32) mmol/L Anion Gap 13.0 H (3-11) BUN 2 L (7-18) mg/dl Creatinine 0.46 L (0.6-1.2) mg/dl Est Cr Clr Drug Dosing 165.3 ml/min Est GFR ( Amer) > 150.0 Est GFR (Non-Af Amer) 136.3 BUN/Creatinine Ratio 4.8 L (10-20) Glucose 68 L (70-99) mg/dl Estimat Average Glucose 103 mg/dl Hemoglobin A1c 5.2 (4.5-5.6) % Calcium 7.9 L (8.5-10.1) mg/dl Magnesium 1.5 L (1.8-2.4) mg/dl Total Bilirubin 0.7 (0.2-1) mg/dl AST 69 H (15-37) U/L ALT 48 (12-78) U/L Alkaline Phosphatase 74 (45-117) U/L Total Protein 5.6 L D (6.4-8.2) gm/dl Albumin 2.9 L (3.4-5.0) gm/dl Globulin 2.7 (2.5-4.0) gm/dl Albumin/Globulin Ratio 1.1 (0.9-2) Lipase 2357 H (73-393) U/L Diagnostic Findings CTAP 1. Acute uncomplicated pancreatitis. No pancreatic ductal dilation, pancreatic necrosis or acute peripancreatic fluid collection. 2. Severe hepatic steatosis. 3. No bowel obstruction or bowel wall thickening. Normal appendix. (1) Pancreatitis Acute pancreatitis complication: no infection or necrosis Chronicity: acute Pancreatitis type: alcohol induced Qualified Code(s): K85.20 - Alcohol induced acute pancreatitis without necrosis or infection
[2020-05-05 17:40] LABS: BUN Creatinine Ratio 4.5 (10-20); Blood Urea Nitrogen 2 mg/dl (7-18); Carbon Dioxide 25 mmol/L (21-32); Chloride 105 mmol/L (98-107); Est GFR (African American) > 150.0; Est GFR (Non-African American) 140.5; Glucose 77 mg/dl (70-99); Potassium 3.8 mmol/L (3.5-5.1); Sodium 139 mmol/L (136-145)
--- NOTE | 2020-05-05 18:59 | Hospitalist Progress Note ---
Date of Service May 05, 2020 Assessment & Plan (1) Abdominal pain: Recurrent Alcoholic pancreatitis Hepatic Steatosis Metabolic acidosis -CT ABD:Acute uncomplicated pancreatitis. No pancreatic ductal dilation, pancreatic necrosis or acute peripancreatic fluid collection. Severe hepatic steatosis. No bowel obstruction or bowel wall thickening. Normal appendix. -Gall bladder USD: Nonvisualization of the pancreas secondary to obscuring bowel gas. Hepatic steatosis. No cholelithiasis or sonographic evidence of acute cholecystitis. No biliary ductal dilation. -Monitor for development of alcoholic hepatitis -Continue aggressive IV fluids -Pain control -Appreciate GI input -Continue Pepcid -Clear liquid diet -Advance diet as tolerated Abnormal UA Ruled out UTI Denies any dysuria Urine culture: negative Discontinue Rocephin Constipation Continue bowel regimen Alcohol abuse Monitor for withdrawal Last Alcohol drink on 05/01/20 as per patient Continue gabapentin per protocol Ativan as needed Continue thiamine, folic acid Counseled on multiple occasions to quit drinking Refused alcohol rehab on prior admission Anxiety/mood disorder Continue home medication Ongoing tobacco abuse Nicotine patch [employer] to quit smoking Chronic thrombocytopenia Secondary to chronic liver disease No acute bleeding issues Monitor platelets Hyperglycemia Ruled out DM II HbA1C:5.2 Seizure disorder As per records Currently not taking any meds DVT Px: SCDs RE thrombocytopenia Code Status Full code Admission and Anticipated Discharge Date Admission Date: May 04, 2020 Subjective Patient is seen and examined at bedside Had transient hallucinations earlier today Abdominal pain slightly better today Denies nausea, vomiting, diarrhea Intermittent tachycardia on monitor Offers no other complaints Review of Systems Review of Systems: All systems reviewed & are unremarkable except as noted in HPI & below Physical Exam Physical Exam: Physical Exam: Vitals signs as noted above General Appearance:Moderately built and nourished, no apparent distress Head: normocephalic, Atraumatic Eyes: normal inspection, EOMI Neck: supple, Trachea midline Respiratory/Chest: Normal breath sounds, CTA Cardiovascular: S1, S2, No murmur Abdomen/GI:Soft, epigastric tender, Bowel sounds present Extremities/Musculoskelatal:normal inspection, no edema Neurologic/Psych:AAOX3, grossly no focal neurological deficits Skin: normal color, warm Results & Data Results & Data ([facility]) Vital Signs (Past 12 Hours) Vital Signs Temp Pulse Pulse Resp BP BP Pulse Ox 05/05/20 15:32 36.8 C 97 H 18 103/72 97 05/05/20 11:36 36.6 C 95 H 16 102/71 95 05/05/20 09:56 155 H 20 110/78 97 05/05/20 08:00 101 H 05/05/20 07:17 37.3 C 120 H 20 108/68 97 Laboratory Results Short CBC 05/05/20 Range/Units 06:17 WBC 4.89 (4.8-10.8) K/uL Hgb 11.3 L (12.0-16.0) g/dL Hct 34.3 L (37-47) % Plt Count 66 L (130-400) K/uL BMP 05/05/20 05/05/20 06:17 17:02 Sodium 138 139 Potassium 2.8 L D 3.8 D Chloride 101 105 Carbon Dioxide 24 25 BUN 2 L 2 L Creatinine 0.46 L 0.42 L Glucose 68 L 77 Calcium 7.9 L 8.0 L Liver Function 05/05/20 Range/Units 06:17 Total Bilirubin 0.7 (0.2-1) mg/dl AST 69 H (15-37) U/L ALT 48 (12-78) U/L Alkaline Phosphatase 74 (45-117) U/L Albumin 2.9 L (3.4-5.0) gm/dl
[2020-05-05] MEDS: QUEtiapine FUMARATE 200 MG TAB PO SCH (20:41)
[2020-05-06] MEDS: oxyCODONE HCL IR 5 MG TAB (IMMEDIATE RELEASE) PO PRN ×4 (00:08→23:35)
[2020-05-06] MEDS: POTASSIUM CHLORIDE 40 MEQ in SODIUM CHLORIDE 0.9% 1000ML 1,000 ML IV SCH ×4 (03:47→20:21)
[2020-05-06] MEDS: PROMETHAZINE HCL 12.5 MG in SODIUM CHLORIDE 0.9% 50 ML IV PRN ×2 (03:58→21:27)
[2020-05-06] MEDS: MoRPHine SULFATE 2 MG/ML CARP IV PRN ×3 (03:58→20:21)
[2020-05-06] MEDS ORDERED: hydrOXYzine HCl 10 MG TAB PO STA (04:57)
[2020-05-06] MEDS: GABAPENTIN 600 MG TAB PO SCH ×2 (05:25→17:00)
[2020-05-06] MEDS ORDERED: hydrOXYzine HCl 25 MG TAB PO PRN (05:43)
[2020-05-06 06:28] LABS: Hematocrit (blood only) 33.5 % (37-47); Hemoglobin 11.1 g/dL (12.0-16.0); Mean Corpuscular Hemoglobin 30.3 pg (25-34); Mean Corpuscular Hgb Conc 33.1 g/dL (32-36); Mean Corpuscular Volume 91.5 fL (80-100); RDW Standard Deviation 63.3 fL (36.4-46.3); Red Blood Count 3.66 M/uL (4.2-5.4); White Blood Count 4.66 K/uL (4.8-10.8)
[2020-05-06 06:34] LABS: Platelet Count 74 K/uL (130-400)
[2020-05-06 07:13] LABS: BUN Creatinine Ratio 4.2 (10-20); Blood Urea Nitrogen 2 mg/dl (7-18); Calcium 8.4 mg/dl (8.5-10.1); Carbon Dioxide 23 mmol/L (21-32); Chloride 104 mmol/L (98-107); Creatinine Clr Calc Pharmacy 176.8 ml/min; Est GFR (African American) > 150.0; Est GFR (Non-African American) 139.4; Glucose 60 mg/dl (70-99); Lipase 606 U/L (73-393); Sodium 135 mmol/L (136-145)
[2020-05-06 08:04] LABS: Magnesium 1.9 mg/dl (1.8-2.4); Potassium 4.5 mmol/L (3.5-5.1)
[2020-05-06] MEDS: FOLIC ACID 1 MG TAB PO SCH (08:32)
[2020-05-06] MEDS: FAMOTIDINE 20 MG in SYRINGE 3 ML IV SCH ×2 (09:17→20:21)
[2020-05-06] MEDS ORDERED: DEXTROSE 50% 50 ML SYRINGE IV PRN (09:50)
[2020-05-06] MEDS ORDERED: GLUCAGON FOR INJ 1 MG VIAL SQ PRN (09:50)
[2020-05-06] MEDS ORDERED: CARBOHYDRATES FOR HYPOGLYCEMIA PO PRN (09:50)
[2020-05-06] MEDS ORDERED: GLUCOSE 40% GEL 15 GM TUBE PO PRN (09:50)
[2020-05-06] MEDS ORDERED: GLUCOSE 10 TABS/TUBE PO PRN (09:50)
[2020-05-06] MEDS: THIAMINE HCL 100 MG TAB PO SCH (11:23)
[2020-05-06] MEDS: DOCUSATE SODIUM/SENNA 50/8.6MG TAB PO SCH (11:23)
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
[2020-05-06] MEDS: LORazepam 2 MG/4 ML VIAL IV PRN ×2 (16:58→22:25)
[2020-05-06] MEDS: ACETAMINOPHEN 325 MG TAB PO PRN (18:16)
--- NOTE | 2020-05-06 18:57 | Hospitalist Progress Note ---
Date of Service May 06, 2020 Assessment & Plan (1) Abdominal pain: Recurrent Alcoholic pancreatitis Hepatic Steatosis Metabolic acidosis -CT ABD:Acute uncomplicated pancreatitis. No pancreatic ductal dilation, pancreatic necrosis or acute peripancreatic fluid collection. Severe hepatic steatosis. No bowel obstruction or bowel wall thickening. Normal appendix. -Gall bladder USD: Nonvisualization of the pancreas secondary to obscuring bowel gas. Hepatic steatosis. No cholelithiasis or sonographic evidence of acute cholecystitis. No biliary ductal dilation. -Monitor for development of alcoholic hepatitis -Continue aggressive IV fluids -Pain control -Appreciate GI input -Continue Pepcid -Advance to full liquid diet Lipase levels trending down Counseled to quit drinking alcohol on multiple occasion Abnormal UA Ruled out UTI Denies any dysuria Urine culture: negative Discontinue Rocephin Constipation Continue bowel regimen Alcohol abuse Monitor for withdrawal Last Alcohol drink on 05/01/20 as per patient Continue gabapentin per protocol Ativan as needed Continue thiamine, folic acid Counseled on multiple occasions to quit drinking Refused alcohol rehab on prior admission Appreciate psychiatry input Anxiety/mood disorder Continue home medication Ongoing tobacco abuse Nicotine patch 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 Request psychiatry evaluation Offers no other complaints Review of Systems Review of Systems: All systems reviewed & are unremarkable except as noted in HPI & below As per HPI, all 10 systems reviewed, all other ROS negative Physical Exam Physical Exam: Physical Exam: Vitals signs as noted above General Appearance:Moderately built and nourished, no apparent distress Head: normocephalic, Atraumatic Eyes: normal inspection, EOMI Neck: supple, Trachea midline Respiratory/Chest: Normal breath sounds, CTA Cardiovascular: S1, S2, No murmur Abdomen/GI:Soft, epigastric tender, Bowel sounds present Extremities/Musculoskelatal:normal inspection, no edema Neurologic/Psych:AAOX3, grossly no focal neurological deficits Skin: normal color, warm Results & Data Results & Data ([facility]) Vital Signs (Past 12 Hours) Vital Signs Temp Pulse Pulse Resp BP Pulse Ox 05/06/20 18:46 36.7 C 93 H 18 123/83 98 05/06/20 16:53 36.7 C 132 H 20 152/84 H 100 05/06/20 15:46 36.4 C L 104 H 20 111/77 96 05/06/20 15:31 129 H 05/06/20 07:25 149 H 05/06/20 07:00 36.7 C 82 16 107/70 95 Laboratory Results Short CBC 05/06/20 Range/Units 05:45 WBC 4.66 L (4.8-10.8) K/uL Hgb 11.1 L (12.0-16.0) g/dL Hct 33.5 L (37-47) % Plt Count 74 L (130-400) K/uL BMP 05/06/20 05/06/20 05:45 07:16 Sodium 135 L Potassium 4.5 D Chloride 104 Carbon Dioxide 23 BUN 2 L Creatinine 0.43 L Glucose 60 L Calcium 8.4 L
[2020-05-06] MEDS: QUEtiapine FUMARATE 200 MG TAB PO SCH (20:22)
[2020-05-07] MEDS: ACETAMINOPHEN 325 MG TAB PO PRN (02:03)
[2020-05-07 02:42] LABS: Marijuana Quant, GCMS Urine 1400 ng/mL (<5)
[2020-05-07] MEDS: POTASSIUM CHLORIDE 40 MEQ in SODIUM CHLORIDE 0.9% 1000ML 1,000 ML IV SCH ×2 (03:19→09:22)
[2020-05-07 06:14] LABS: Hematocrit (blood only) 32.2 % (37-47); Hemoglobin 10.5 g/dL (12.0-16.0); Mean Corpuscular Hgb Conc 32.6 g/dL (32-36); RDW Standard Deviation 63.7 fL (36.4-46.3); White Blood Count 3.24 K/uL (4.8-10.8)
[2020-05-07 06:15] LABS: Mean Platelet Volume 9.3 fL (7.4-10.4); Platelet Count 60 K/uL (130-400)
[2020-05-07] MEDS: MoRPHine SULFATE 2 MG/ML CARP IV PRN (06:18)
[2020-05-07 06:44] LABS: Blood Urea Nitrogen < 1 mg/dl (7-18); Calcium 8.6 mg/dl (8.5-10.1); Carbon Dioxide 23 mmol/L (21-32); Chloride 107 mmol/L (98-107); Creatinine Clr Calc Pharmacy 211.2 ml/min; Est GFR (African American) > 150.0; Est GFR (Non-African American) 147.8; Glucose 76 mg/dl (70-99); Magnesium 1.8 mg/dl (1.8-2.4); Potassium 3.8 mmol/L (3.5-5.1); Sodium 139 mmol/L (136-145)
[2020-05-07] MEDS: PROMETHAZINE HCL 12.5 MG in SODIUM CHLORIDE 0.9% 50 ML IV PRN (06:49)
[2020-05-07] MEDS: oxyCODONE HCL IR 5 MG TAB (IMMEDIATE RELEASE) PO PRN (08:30)
[2020-05-07] MEDS: FAMOTIDINE 20 MG in SYRINGE 3 ML IV SCH (08:30)
[2020-05-07] MEDS: THIAMINE HCL 100 MG TAB PO SCH (08:31)
[2020-05-07] MEDS: FOLIC ACID 1 MG TAB PO SCH (08:31)
[2020-05-07] MEDS: DOCUSATE SODIUM/SENNA 50/8.6MG TAB PO SCH (08:31)
[2020-05-07] MEDS ORDERED: LORazepam 1 MG TAB PO PRN (11:35)
--- NOTE | 2020-05-07 15:27 | Hospitalist Progress Note ---
Date of Service May 07, 2020 Assessment & Plan (1) Abdominal pain: Recurrent Alcoholic pancreatitis Hepatic Steatosis Metabolic acidosis -CT ABD:Acute uncomplicated pancreatitis. No pancreatic ductal dilation, pancreatic necrosis or acute peripancreatic fluid collection. Severe hepatic steatosis. No bowel obstruction or bowel wall thickening. Normal appendix. -Gall bladder USD: Nonvisualization of the pancreas secondary to obscuring bowel gas. Hepatic steatosis. No cholelithiasis or sonographic evidence of acute cholecystitis. No biliary ductal dilation. -Monitor for development of alcoholic hepatitis -Received IV fluids -Pain control -Appreciate GI input -Continue Pepcid -Tolerated regular diet Lipase levels trending down Counseled to quit drinking alcohol on multiple occasion Refuses alcohol rehab placement Requests IV pain medications and plans to sign out AMA(As per night hospitalist and informed RN today as well) despite explaining the risks of signing out AMA and possible complications. 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 Chronic thrombocytopenia Secondary to chronic liver disease No acute bleeding issues Monitor platelets Hyperglycemia Ruled out DM II HbA1C:5.2 Seizure disorder As per records Currently not taking any meds DVT Px: SCDs RE thrombocytopenia Code Status Full code Disposition Signed out AGAINST MEDICAL ADVICE Admission and Anticipated Discharge Date Admission Date: May 04, 2020 Subjective Patient is seen and examined at bedside States abdominal pain is better Denies nausea, vomiting Tolerating diet Anxious and tearful during my encounter Denies chest pain, dyspnea, dizziness Requesting IV pain 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 Review of Systems: As per HPI, all 10 systems reviewed, all other ROS negative Physical Exam Physical Exam: Physical Exam: Vitals signs as noted above General Appearance:Moderately built and nourished, no apparent distress Head: normocephalic, Atraumatic Eyes: normal inspection, EOMI Neck: supple, Trachea midline Respiratory/Chest: Normal breath sounds, CTA Cardiovascular: S1, S2, No murmur Abdomen/GI:Soft, mild epigastric tender, Bowel sounds present Extremities/Musculoskelatal:normal inspection, no edema Neurologic/Psych:AAOX3, grossly no focal neurological deficits Skin: normal color, warm Results & Data Results & Data ([facility]) Vital Signs (Past 12 Hours) Vital Signs Temp Pulse Pulse Pulse Resp BP BP 05/07/20 15:24 36.8 C 83 109 H 18 110/76 131/96 05/07/20 12:00 36.8 C 109 H 18 131/96 05/07/20 07:24 87 05/07/20 07:07 36.5 C 75 18 110/76 Pulse Ox 05/07/20 15:24 100 05/07/20 12:00 100 05/07/20 07:24 05/07/20 07:07 100
--- NOTE | 2020-05-07 16:16 | Discharge Summary ---
Date of Service May 07, 2020 Admission HPI Per Admitting Provider History obtained from patient and records. Medical history significant for anxiety/mood disorder, ongoing tobacco/alcohol abuse, recurrent pancreatitis, chronic thrombocytopenia. Recent confinement February 2020 for alcohol abuse, traumatic facial cellulitis. Patient had a few beers last . Last night patient noted achy epigastric pain going to her back similar to pancreatitis episode in the past but much worse. Some chills. No chest pain. Short of breath because of abdominal pain. Urinary incontinence as per patient. Emesis and constipation at home. Medical History as above Surgical History : D&C Family History : Hypertension Personal/Social history : 5 cigarettes a day, daily EtOH intake the last week, currently unemployed Admission Exam Per Admitting Provider Physical Exam Physical Exam: GENERAL: uncomfortable, no respiratory distress SKIN: Normal color, warm HEENT: [place] palpebral conjunctivae, no ptosis, dry buccal mucosa NECK : Supple, no tenderness CHEST : CTA, no tenderness HEART : Tachycardic, no obvious murmurs ABDOMEN: Some distention, epigastric tenderness EXTREMITIES : No LE swelling/tenderness, no other conspicuous deformities noted NEUROLOGIC : Coherent, no facial asymmetry, no other gross focality Principal Diagnosis Recurrent Alcoholic pancreatitis Hepatic Steatosis Metabolic acidosis Alcohol abuse Thrombocytopenia Discharge Data Allergies Allergy/AdvReac Type Severity Reaction Status Date / Time lamotrigine [From Lamictal] Allergy Mild Rash Verified 05/06/20 12:46 amairani Allergy Mild GUMS SWELL Verified 05/04/20 01:11 mushroom Allergy Mild GUMS SWELL Verified 05/04/20 01:11 ketorolac [From Toradol] AdvReac Mild Irritable Verified 05/04/20 01:11 Consultations 05/04/20 03:18 ED Decision to Admit Stat 05/04/20 08:18 Consult Case Management - Discharge Planning Routine Consult Gastroenterology Routine 05/06/20 12:23 Consult Psychiatry Routine Procedures Performed CT ABD:Acute uncomplicated pancreatitis. No pancreatic ductal dilation, pancreatic necrosis or acute peripancreatic fluid collection. Severe hepatic steatosis. No bowel obstruction or bowel wall thickening. Normal appendix. Gall bladder USD: Nonvisualization of the pancreas secondary to obscuring bowel gas. Hepatic steatosis. No cholelithiasis or sonographic evidence of acute cholecystitis. No biliary ductal dilation. Ordered Studies 05/04/20 01:22 US gallbladder Urgent 05/04/20 04:13 CT abd pelvis IV con only Urgent Hospital Course (1) Abdominal pain: Recurrent Alcoholic pancreatitis Hepatic Steatosis Metabolic acidosis -CT ABD:Acute uncomplicated pancreatitis. No pancreatic ductal dilation, pancreatic necrosis or acute peripancreatic fluid collection. Severe hepatic steatosis. No bowel obstruction or bowel wall thickening. Normal appendix. -Gall bladder USD: Nonvisualization of the pancreas secondary to obscuring bowel gas. Hepatic steatosis. No cholelithiasis or sonographic evidence of acute cholecystitis. No biliary ductal dilation. -Monitor for development of alcoholic hepatitis -Received IV fluids -Pain control -Appreciate GI input -Continue Pepcid -Tolerated regular diet Lipase levels trending down Counseled to quit drinking alcohol on multiple occasion Refuses alcohol rehab placement Requests IV pain medications and plans to sign out AMA(As per night hospitalist and informed RN today as well) despite explaining the risks of signing out AMA and possible complications. 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 Chronic thrombocytopenia Secondary to chronic liver disease No acute bleeding issues Monitor platelets Hyperglycemia Ruled out DM II HbA1C:5.2 Seizure disorder As per records Currently not taking any meds DVT Px: SCDs RE thrombocytopenia Code Status Full code Disposition Signed out AGAINST MEDICAL ADVICE Total Time Total Time Spent Total Time Spent (In Minutes): 45 minutes Total Time Includes: Examination of the Patient, Discharge Planning, Medication Reconciliation, Communication With Other Providers and Other Discharge Plan Discharge Items Patient Disposition: Against Medical Advice Reason For Visit: RECURRENT PANCREATITIS Activity: Per Instructions section Exercise/Sports: Gradually increase as tolerated Non-emergency contact: Primary Care Provider and Specialist Follow-up/Referrals: William Mullins MD [Primary Care Provider] - Maria Antonia Mcleod DO [Outside Practitioners] - 06/18/20 8:30 am (Dr. Mcleod's office will send you reminders regarding appt. This appt will be VIRTUAL. They will send you a link for video session closer to appt date.) Pending Studies at Discharge: No Stand-Alone Forms: My [facility], Smoking Cessation Medications and DC Order Prescriptions: Continued quetiapine [Seroquel] 200 mg Tablet 200 mg PO HS Qty: 30 RF: 0 Discharge Orders: Left Against Medical Advice (Routine); Ordered 05/07/20 Ordered By: Nathan Grissom Admission Data Admit Date/Time: 05/04/20 04:19 Attending Provider: Nathan Grissom Admit Provider: Richar Daniels Primary Care Provider: William Mullins Other Providers: Richar Daniels ; Ramos Bustillos ; Kimberley Stafford ; Izabela Richardson ; Mari Grady ; Anton Reid ; Norma Alvarado ; Antwan Luna ; Akbar Mcneil ; Bear Bland ; Brionna Mcmanus ; Dixie Carrero ; Dinah Madison ; Brittney Mosquera ; Angel Roberson ; Rochelle Ponce Other Interventions: Discharge Summary Assessment (RN) Last Done: 05/07/20 15:24
[2020-05-07] MEDS ORDERED: GABAPENTIN 600 MG TAB PO SCH (18:00)
[2020-05-07] MEDS ORDERED: FAMOTIDINE 10 MG TABLET PO SCH (21:00)
== END 2020-05-07 15:05 | disposition left against medical advice (07) | DRG 439 ==
LOC: ED → 2N 04:19

== ENCOUNTER 2020-05-29 01:34 | Observation (INO) ==
[2020-05-29] MEDS ORDERED: MoRPHine SULFATE 10 MG/ML CARP/VIAL IV STA (01:58)
[2020-05-29] MEDS ORDERED: ONDANSETRON INJ 2 MG/ML 2 ML VIAL IV STA (01:58)
[2020-05-29] MEDS ORDERED: SODIUM CHLORIDE 0.9% 1000ML 1,000 ML IV ONE (01:58)
--- NOTE | 2020-05-29 02:05 | Emergency Department Note ---
History of Present Illness General Chief complaint: Vomiting Stated complaint: VOMITING Time Seen by Provider: 05/29/20 01:41 Source: patient Mode of arrival: ambulatory Limitations: no limitations History of Present Illness Maximum Pain Intensity: 10 This patient is a 25-year-old female who presents to the emergency department for evaluation of upper abdominal pain and vomiting. Symptoms started yesterday morning. She states that she has had numerous episodes of vomiting and is unable to keep anything down. She reports pain across her upper abdomen and into her back. She feels shaky and weak. She states this feels similar to her previous episodes of pancreatitis. Patient has a history of alcoholic bedolla creatitis. Patient last drank 2 nights ago and states that she drank an entire bottle of tequila at that time. She states that she has been drinking consistently over the past 5 days due to her fianc cheating on her. She rates her pain a 10/10. She has not used any medications at home for her symptoms. Home Medications Medication Instructions Recorded Confirmed Type No Known Home Medications 05/29/20 05/29/20 History Allergies Allergy/AdvReac Type Severity Reaction Status Date / Time lamotrigine [From Lamictal] Allergy Mild Rash Verified 05/29/20 01:47 amairani Allergy Mild GUMS SWELL Verified 05/29/20 01:47 mushroom Allergy Mild GUMS SWELL Verified 05/29/20 01:47 ketorolac [From Toradol] AdvReac Mild Irritable Verified 05/29/20 01:47 Past Med/Surg History Medical History (Updated 05/29/20 @ 06:50 by Nasreen Key PA-C) Alcohol abuse Closed fracture of left distal radius Closed fracture of right olecranon process Marijuana use Mood disorder Polysubstance abuse Recurrent pancreatitis Seizure disorder Tobacco use disorder Surgical History History of orthopedic surgery Family History Other No significant family history Social History Smoking Status: Current every day smoker Tobacco Type: Cigarettes Cigarettes Per Day: 1 pack per day; Second Hand Exposure: No; Hx Alcohol Use: Yes Alcohol type: beer and wine Hx Substance Use: Yes Prescribed Medications: Marijuana Last Used Substance: Just Prior to Arrival Preferred Language: Divehi Communication Ability: Effective Visual Impairment: No Limitations Nurse Administrator Required: No Beliefs That Will Affect Care: None marital status: Single Current Living Situation: Homeless Current Living Situation Comment: [facility] Feels Safe at Home: Yes Assistive Devices: None Review of Systems A total of 10 systems reviewed and were otherwise negative Physical Exam Vital Signs Vital Signs - 24 hr 05/29/20 01:37 05/29/20 03:00 05/29/20 04:19 Temperature 36.4 C L Temperature Source Temporal Artery Scan Pulse Rate 145 H Pulse Rate [Finger] 112 H 113 H Respiratory Rate 18 18 18 Respiratory Effort / Characteristics Non-Labored Respiratory Depth Normal Blood Pressure 127/62 Blood Pressure [Left Arm] 115/76 127/90 Blood Pressure Mean 83 Blood Pressure Mean [Left Arm] 89 102 Pulse Oximetry 98 100 100 Oxygen Delivery Method Room Air Room Air Room Air Sepsis Recent Fever Within 48 Hours No Sepsis New/Unexplained Change in Mental Status No Sepsis Action Taken by Nursing No Action Required 05/29/20 05:02 05/29/20 05:30 05/29/20 06:00 Temperature Temperature Source Pulse Rate Pulse Rate [Finger] 119 H 112 H 118 H Respiratory Rate 18 18 18 Respiratory Effort / Characteristics Respiratory Depth Blood Pressure Blood Pressure [Left Arm] 117/74 110/75 118/64 Blood Pressure Mean Blood Pressure Mean [Left Arm] 88 86 82 Pulse Oximetry 100 98 98 Oxygen Delivery Method Room Air Room Air Room Air Sepsis Recent Fever Within 48 Hours Sepsis New/Unexplained Change in Mental Status Sepsis Action Taken by Nursing VITALS: Vitals are noted on the nurse's note and reviewed by myself. GENERAL: This is a 25-year-old female, uncomfortable appearing, moaning in pain, holding an emesis bucket. SKIN: The skin was without rashes. EARS: External auditory canals clear, tympanic membranes pearly jeffers without erythema or effusion bilaterally. EYES: Pupils equal round and reactive to light and accommodation. No scleral icterus. MOUTH: Mucous membranes moist. NECK: Supple without nuchal rigidity. No lymphadenopathy. HEART: Regular rate and rhythm without murmurs gallops or rubs. LUNGS: Clear to auscultation bilaterally without wheezes, rales or rhonchi. ABDOMEN: Positive bowel sounds x 4. Tenderness to palpation in the epigastric region, left upper quadrant and right upper quadrant.. No guarding or rebound tenderness. NEURO: Patient was alert and oriented to person place and time. Course Consultations Consultation #1: Dr. Frances Tapia hospitalist Administered Medications Lactated Ringer's (Lr) 1,000 mls @ 200 mls/hr IV .Q5H ONE Stop: 05/29/20 10:20 Last Admin: 05/29/20 05:28 Dose: 200 mls/hr Documented by: [id number] Oxycodone HCl (Oxycodone Hcl Ir 5 Mg Tab (Immediate Release)) 5 mg PO Q4H PRN PRN Reason: Pain Stop: 06/12/20 05:17 Last Admin: 05/29/20 05:28 Dose: 5 mg Documented by: [id number] Discontinued Medications Gabapentin (Gabapentin 800 Mg Tab) 1,200 mg PO NOW STA Stop: 05/29/20 05:59 Last Admin: 05/29/20 06:05 Dose: 1,200 mg Documented by: [id number] Sodium Chloride (Nss 1000ml) 1,000 mls @ 999 mls/hr IV .Q1H1M ONE Stop: 05/29/20 02:58 Last Infusion: 05/29/20 03:42 Dose: 0 mls/hr Documented by: [id number] Admin: 05/29/20 02:34 Dose: 999 mls/hr Documented by: [id number] Promethazine HCl (Phenergan) 25 mg in 51 mls @ 204 mls/hr IV NOW STA Stop: 05/29/20 04:01 Last Infusion: 05/29/20 04:10 Dose: 0 mls/hr Documented by: [id number] Admin: 05/29/20 03:55 Dose: 204 mls/hr Documented by: [id number] Multivitamins 10 ml/ Thiamine HCl 100 mg/ Folic Acid 1 mg/Sodium Chloride 1,011.2 mls @ 1,011.2 mls/hr IV .Q1H ONE Stop: 05/29/20 04:56 Last Infusion: 05/29/20 05:23 Dose: 0 mls/hr Documented by: [id number] Admin: 05/29/20 04:18 Dose: 1,011.2 mls/hr Documented by: [id number] Lorazepam (Ativan) 1 mg in 2 mls @ 2 mls/min IV NOW STA Stop: 05/29/20 05:11 Last Admin: 05/29/20 05:14 Dose: 2 mls/min Documented by: [id number] Morphine Sulfate (Morphine Sulfate 10 Mg/Ml Carp/Vial) 6 mg IV NOW STA Stop: 05/29/20 01:59 Last Admin: 05/29/20 02:34 Dose: 6 mg Documented by: [id number] Ondansetron HCl (Ondansetron Inj 2 Mg/Ml 2 Ml Vial) 4 mg IV NOW STA Stop: 05/29/20 01:59 Last Admin: 05/29/20 02:34 Dose: 4 mg Documented by: [id number] Medical Decision Making Differential Diagnosis Appendicitis, ovarian cyst, ovarian torsion, ectopic , TOA, PID, infec tions, diverticulitis, UTI, obstruction, mesenteric ischemia, aortic pathology, inflammatory bowel disease, renal colic, PUD, pancreatitis, biliary pathology, hernia, volvulus, constipation, as well as other pathologies. Medical Records Attestation: I reviewed the patient's medical records. Home Medications Current Medication List: was personally reviewed by me Laboratory Data Attestation: I reviewed the patient's lab results. Result diagrams: 05/29/20 02:25 05/29/20 04:08 Lab Results 05/29/20 05/29/20 05/29/20 Range/Units 02:25 02:25 02:25 WBC 3.99 L (4.8-10.8) K/uL RBC 4.65 (4.2-5.4) M/uL Hgb 14.5 (12.0-16.0) g/dL Hct 43.3 (37-47) % MCV 93.1 (80-100) fL MCH 31.2 (25-34) pg MCHC 33.5 (32-36) g/dL RDW Std Deviation 59.1 H (36.4-46.3) fL RDW Coeff of Nayana 17.4 H (11.5-14.5) % Plt Count 127 L (130-400) K/uL MPV 9.5 (7.4-10.4) fL Immature Gran % (Auto) 0.3 % Neut % (Auto) 70.1 % Lymph % (Auto) 17.3 % [place] % (Auto) 12.0 % Eos % (Auto) 0.0 % Baso % (Auto) 0.3 % Neut # (Auto) 2.80 (1.4-6.5) K/uL Lymph # (Auto) 0.69 L (1.2-3.4) K/uL [place] # (Auto) 0.48 (0.11-0.59) K/uL Eos # (Auto) 0.00 (0-0.5) K/uL Baso # (Auto) 0.01 (0-0.2) K/uL Immature Gran # (Auto) 0.01 (0.00-0.02) K/uL VBG pH (7.36-7.41) VBG pCO2 (38-50) mmHg VBG pO2 mmHg VBG HCO3 mmol/L VBG O2 Saturation % VBG Base Excess mEq/L Barometric Pressure mm/Hg Sodium 132 L (136-145) mmol/L Potassium (3.5-5.1) mmol/L Chloride 98 (98-107) mmol/L Carbon Dioxide 12 L (21-32) mmol/L Anion Gap 22.0 H (3-11) BUN 8 (7-18) mg/dl Creatinine 0.77 (0.6-1.2) mg/dl Est Cr Clr Drug Dosing 98.8 ml/min Est GFR ( Amer) 122.6 Est GFR (Non-Af Amer) 105.8 BUN/Creatinine Ratio 10.3 (10-20) Glucose 60 L (70-99) mg/dl POC Glucose (70-99) mg/dl Calcium 9.9 (8.5-10.1) mg/dl Total Bilirubin 1.1 H (0.2-1) mg/dl AST (15-37) U/L ALT 84 H (12-78) U/L Alkaline Phosphatase 108 (45-117) U/L Total Protein 9.6 H (6.4-8.2) gm/dl Albumin 4.7 (3.4-5.0) gm/dl Globulin 4.9 H (2.5-4.0) gm/dl Albumin/Globulin Ratio 1.0 (0.9-2) Lipase 42 L (73-393) U/L Specimen Hemolysis Urine Color Urine Appearance (Clear) Urine pH (4.5-7.5) Ur Specific [place] (1.000-1.030) Urine Protein (Negative) Urine Glucose (UA) (Negative) Urine Ketones (Negative) Urine Blood (Negative) Urine Nitrite (Negative) Urine Bilirubin (Negative) Urine Urobilinogen (Negative) Ur Leukocyte Esterase (Negative) Urine WBC (Auto) (0-5) /hpf Urine RBC (Auto) (0-4) /hpf U Hyaline Cast (Auto) (0-5) /lpf U Epithel Cells (Auto) (0-5) /lpf Urine Bacteria (Auto) (Negative) Ur Renal Epithelial Cell Urine Test (Negative) Urine Opiates Screen (Neg) Ur Methadone, Qual (Neg) Urine Barbiturates (Neg) Ur Phencyclidine (PCP) (Neg) U Amphetamin/Meth Scrn (Neg) MDMA (Ecstasy) Screen (Neg) U Benzodiazepines Scrn (Neg) Ur Cocaine Metabolite (Neg) U Marijuana (THC) Screen (Neg) Ethyl Alcohol mg/dL Cancelled COVID-19 Eval Order SARS-CoV-2, RNA, NAAT (NEGATIVE) 05/29/20 05/29/20 05/29/20 Range/Units 04:08 04:08 04:18 WBC (4.8-10.8) K/uL RBC (4.2-5.4) M/uL Hgb (12.0-16.0) g/dL Hct (37-47) % MCV (80-100) fL MCH (25-34) pg MCHC (32-36) g/dL RDW Std Deviation (36.4-46.3) fL RDW Coeff of Nayana (11.5-14.5) % Plt Count (130-400) K/uL MPV (7.4-10.4) fL Immature Gran % (Auto) % Neut % (Auto) % Lymph % (Auto) % [place] % (Auto) % Eos % (Auto) % Baso % (Auto) % Neut # (Auto) (1.4-6.5) K/uL Lymph # (Auto) (1.2-3.4) K/uL [place] # (Auto) (0.11-0.59) K/uL Eos # (Auto) (0-0.5) K/uL Baso # (Auto) (0-0.2) K/uL Immature Gran # (Auto) (0.00-0.02) K/uL VBG pH 7.18 L (7.36-7.41) VBG pCO2 39 (38-50) mmHg VBG pO2 21 mmHg VBG HCO3 14 mmol/L VBG O2 Saturation < 60.0 % VBG Base Excess -13.1 mEq/L Barometric Pressure 728.9 mm/Hg Sodium (136-145) mmol/L Potassium 5.0 (3.5-5.1) mmol/L Chloride (98-107) mmol/L Carbon Dioxide (21-32) mmol/L Anion Gap (3-11) BUN (7-18) mg/dl Creatinine (0.6-1.2) mg/dl Est Cr Clr Drug Dosing ml/min Est GFR ( Amer) Est GFR (Non-Af Amer) BUN/Creatinine Ratio (10-20) Glucose (70-99) mg/dl POC Glucose (70-99) mg/dl Calcium (8.5-10.1) mg/dl Total Bilirubin (0.2-1) mg/dl AST 104 H (15-37) U/L ALT (12-78) U/L Alkaline Phosphatase (45-117) U/L Total Protein (6.4-8.2) gm/dl Albumin (3.4-5.0) gm/dl Globulin (2.5-4.0) gm/dl Albumin/Globulin Ratio (0.9-2) Lipase (73-393) U/L Specimen Hemolysis Urine Color Urine Appearance (Clear) Urine pH (4.5-7.5) Ur Specific [place] (1.000-1.030) Urine Protein (Negative) Urine Glucose (UA) (Negative) Urine Ketones (Negative) Urine Blood (Negative) Urine Nitrite (Negative) Urine Bilirubin (Negative) Urine Urobilinogen (Negative) Ur Leukocyte Esterase (Negative) Urine WBC (Auto) (0-5) /hpf Urine RBC (Auto) (0-4) /hpf U Hyaline Cast (Auto) (0-5) /lpf U Epithel Cells (Auto) (0-5) /lpf Urine Bacteria (Auto) (Negative) Ur Renal Epithelial Cell Urine Test (Negative) Urine Opiates Screen (Neg) Ur Methadone, Qual (Neg) Urine Barbiturates (Neg) Ur Phencyclidine (PCP) (Neg) U Amphetamin/Meth Scrn (Neg) MDMA (Ecstasy) Screen (Neg) U Benzodiazepines Scrn (Neg) Ur Cocaine Metabolite (Neg) U Marijuana (THC) Screen (Neg) Ethyl Alcohol mg/dL < 3.0 COVID-19 Eval Order SARS-CoV-2, RNA, NAAT (NEGATIVE) 05/29/20 05/29/20 05/29/20 Range/Units 05:16 05:16 05:16 WBC (4.8-10.8) K/uL RBC (4.2-5.4) M/uL Hgb (12.0-16.0) g/dL Hct (37-47) % MCV (80-100) fL MCH (25-34) pg MCHC (32-36) g/dL RDW Std Deviation (36.4-46.3) fL RDW Coeff of Nayana (11.5-14.5) % Plt Count (130-400) K/uL MPV (7.4-10.4) fL Immature Gran % (Auto) % Neut % (Auto) % Lymph % (Auto) % [place] % (Auto) % Eos % (Auto) % Baso % (Auto) % Neut # (Auto) (1.4-6.5) K/uL Lymph # (Auto) (1.2-3.4) K/uL [place] # (Auto) (0.11-0.59) K/uL Eos # (Auto) (0-0.5) K/uL Baso # (Auto) (0-0.2) K/uL Immature Gran # (Auto) (0.00-0.02) K/uL VBG pH (7.36-7.41) VBG pCO2 (38-50) mmHg VBG pO2 mmHg VBG HCO3 mmol/L VBG O2 Saturation % VBG Base Excess mEq/L Barometric Pressure mm/Hg Sodium (136-145) mmol/L Potassium (3.5-5.1) mmol/L Chloride (98-107) mmol/L Carbon Dioxide (21-32) mmol/L Anion Gap (3-11) BUN (7-18) mg/dl Creatinine (0.6-1.2) mg/dl Est Cr Clr Drug Dosing ml/min Est GFR ( Amer) Est GFR (Non-Af Amer) BUN/Creatinine Ratio (10-20) Glucose (70-99) mg/dl POC Glucose (70-99) mg/dl Calcium (8.5-10.1) mg/dl Total Bilirubin (0.2-1) mg/dl AST (15-37) U/L ALT (12-78) U/L Alkaline Phosphatase (45-117) U/L Total Protein (6.4-8.2) gm/dl Albumin (3.4-5.0) gm/dl Globulin (2.5-4.0) gm/dl Albumin/Globulin Ratio (0.9-2) Lipase (73-393) U/L Specimen Hemolysis Urine Color Urine Appearance (Clear) Urine pH (4.5-7.5) Ur Specific [place] (1.000-1.030) Urine Protein (Negative) Urine Glucose (UA) (Negative) Urine Ketones (Negative) Urine Blood (Negative) Urine Nitrite (Negative) Urine Bilirubin (Negative) Urine Urobilinogen (Negative) Ur Leukocyte Esterase (Negative) Urine WBC (Auto) (0-5) /hpf Urine RBC (Auto) (0-4) /hpf U Hyaline Cast (Auto) (0-5) /lpf U Epithel Cells (Auto) (0-5) /lpf Urine Bacteria (Auto) (Negative) Ur Renal Epithelial Cell Urine Test (Negative) Urine Opiates Screen Pos H (Neg) Ur Methadone, Qual Neg (Neg) Urine Barbiturates Neg (Neg) Ur Phencyclidine (PCP) Neg (Neg) U Amphetamin/Meth Scrn Pos H (Neg) MDMA (Ecstasy) Screen Neg (Neg) U Benzodiazepines Scrn Neg (Neg) Ur Cocaine Metabolite Neg (Neg) U Marijuana (THC) Screen Pos H (Neg) Ethyl Alcohol mg/dL COVID-19 [email or web address]-2, RNA, NAAT NEGATIVE (NEGATIVE) 05/29/20 05/29/20 05/29/20 Range/Units 05:34 Unknown Unknown WBC (4.8-10.8) K/uL RBC (4.2-5.4) M/uL Hgb (12.0-16.0) g/dL Hct (37-47) % MCV (80-100) fL MCH (25-34) pg MCHC (32-36) g/dL RDW Std Deviation (36.4-46.3) fL RDW Coeff of Nayana (11.5-14.5) % Plt Count (130-400) K/uL MPV (7.4-10.4) fL Immature Gran % (Auto) % Neut % (Auto) % Lymph % (Auto) % [place] % (Auto) % Eos % (Auto) % Baso % (Auto) % Neut # (Auto) (1.4-6.5) K/uL Lymph # (Auto) (1.2-3.4) K/uL [place] # (Auto) (0.11-0.59) K/uL Eos # (Auto) (0-0.5) K/uL Baso # (Auto) (0-0.2) K/uL Immature Gran # (Auto) (0.00-0.02) K/uL VBG pH (7.36-7.41) VBG pCO2 (38-50) mmHg VBG pO2 mmHg VBG HCO3 mmol/L VBG O2 Saturation % VBG Base Excess mEq/L Barometric Pressure mm/Hg Sodium (136-145) mmol/L Potassium (3.5-5.1) mmol/L Chloride (98-107) mmol/L Carbon Dioxide (21-32) mmol/L Anion Gap (3-11) BUN (7-18) mg/dl Creatinine (0.6-1.2) mg/dl Est Cr Clr Drug Dosing ml/min Est GFR ( Amer) Est GFR (Non-Af Amer) BUN/Creatinine Ratio (10-20) Glucose (70-99) mg/dl POC Glucose 103 H (70-99) mg/dl Calcium (8.5-10.1) mg/dl Total Bilirubin (0.2-1) mg/dl AST (15-37) U/L ALT (12-78) U/L Alkaline Phosphatase (45-117) U/L Total Protein (6.4-8.2) gm/dl Albumin (3.4-5.0) gm/dl Globulin (2.5-4.0) gm/dl Albumin/Globulin Ratio (0.9-2) Lipase (73-393) U/L Specimen Hemolysis Urine Color Yellow Urine Appearance Clear (Clear) Urine pH 5.0 (4.5-7.5) Ur Specific [place] 1.023 (1.000-1.030) Urine Protein 1+ H (Negative) Urine Glucose (UA) Negative (Negative) Urine Ketones 4+ H (Negative) Urine Blood Negative (Negative) Urine Nitrite Negative (Negative) Urine Bilirubin Negative (Negative) Urine Urobilinogen Negative (Negative) Ur Leukocyte Esterase Trace H (Negative) Urine WBC (Auto) 10-30 H (0-5) /hpf Urine RBC (Auto) 0-4 (0-4) /hpf U Hyaline Cast (Auto) 1-5 (0-5) /lpf U Epithel Cells (Auto) >30 H (0-5) /lpf Urine Bacteria (Auto) Negative (Negative) Ur Renal Epithelial Cell Not Reportable Urine Test Negative (Negative) Urine Opiates Screen (Neg) Ur Methadone, Qual (Neg) Urine Barbiturates (Neg) Ur Phencyclidine (PCP) (Neg) U Amphetamin/Meth Scrn (Neg) MDMA (Ecstasy) Screen (Neg) U Benzodiazepines Scrn (Neg) Ur Cocaine Metabolite (Neg) U Marijuana (THC) Screen (Neg) Ethyl Alcohol mg/dL COVID-19 Eval Order SARS-CoV-2, RNA, NAAT (NEGATIVE) Imaging Data Attestation: I personally reviewed and interpreted this imaging study as follows: My Impression: CHEST 1 VIEW: No free air. No cardiomegaly. No pulmonary consolidation. MDM Narrative Continuous environmental monitoring specialist: Order was placed for continuous environmental monitoring specialist. Patient was placed on the environmental monitoring specialist. Patient was noted to be in normal sinus rhythm at an initial rate of 115 bpm. The patient is a 25-year-old female who presents today complaining of vomiting. Patient reports symptoms are consistent with prior episodes of pancreatitis. Labs revealed leukopenia and thrombocytopenia, likely due to bone marrow suppression from chronic ETOH intake. She was found to have an elevated anion gap of 22, bicarb of 12. A VBG was performed which showed a pH of 7.18. LFTs elevated at patient's baseline, but lipase was within normal limits. No further imaging performed as patient has had multiple recent CTs and frequently presents with these same complaints. Symptoms could be due to early pancreatitis, alt giuliana likely also an element of alcohol withdrawal. There may also be a component of cannabinoid hyperemesis. Patient received multiple rounds of antiemetics as well as 1 L NSS, a banana bag, and IV ativan. She did not feel any better. Given her laboratory findings and persistent symptoms[facility]. Impression & Plan Intractable vomiting, Epigastric abdominal pain, High anion gap metabolic acidosis, Alcohol withdrawal Discharge Plan Visit Data Chief Complaint: Vomiting Stated Complaint: VOMITING ED Provider: [facility] Midlevel Provider: Nasreen Key Discharge Problem: Intractable vomiting, Epigastric abdominal pain, High anion gap metabolic acidosis, Alcohol withdrawal Forms Stand Alone Forms: [facility] [employer] Prescriptions Prescriptions: No Action No Known Home Medications RF: 0 Discharge Problem: Intractable vomiting Qualifiers: Vomiting type: unspecified Nausea presence: with nausea Qualified Code(s): R11.2 - Nausea with vomiting, unspecified Alcohol withdrawal Qualifiers: Complication of substance-induced condition: uncomplicated Qualified Code(s): F10.230 - Alcohol dependence with withdrawal, uncomplicated
[2020-05-29 02:47] LABS: Basophils # (auto) 0.01 K/uL (0-0.2); Basophils % (auto) 0.3 %; Hematocrit (blood only) 43.3 % (37-47); Hemoglobin 14.5 g/dL (12.0-16.0); Immature Granulocytes # (auto) 0.01 K/uL (0.00-0.02); Immature Granulocytes % (auto) 0.3 %; Lymphocytes # (auto) 0.69 K/uL (1.2-3.4); Lymphocytes % (auto) 17.3 %; Mean Corpuscular Hemoglobin 31.2 pg (25-34); Mean Corpuscular Hgb Conc 33.5 g/dL (32-36); Mean Corpuscular Volume 93.1 fL (80-100); Mean Platelet Volume 9.5 fL (7.4-10.4); Monocytes # (auto) 0.48 K/uL (0.11-0.59); Neutrophils % (auto) 70.1 %; Platelet Count 127 K/uL (130-400); RDW Coefficient of Variation 17.4 % (11.5-14.5); RDW Standard Deviation 59.1 fL (36.4-46.3); Red Blood Count 4.65 M/uL (4.2-5.4); White Blood Count 3.99 K/uL (4.8-10.8)
[2020-05-29 03:15] LABS: BUN Creatinine Ratio 10.3 (10-20); Bilirubin,Total 1.1 mg/dl (0.2-1); Calcium 9.9 mg/dl (8.5-10.1); Creatinine Clr Calc Pharmacy 98.8 ml/min; Est GFR (African American) 122.6; Est GFR (Non-African American) 105.8
[2020-05-29 03:16] LABS: Albumin Level 4.7 gm/dl (3.4-5.0); Globulin 4.9 gm/dl (2.5-4.0); Total Protein 9.6 gm/dl (6.4-8.2)
[2020-05-29 03:17] LABS: Pregnancy Test, Urine Negative (Negative)
[2020-05-29 03:18] LABS: Appearance Urine Clear (Clear); Bacteria Urine Automated Negative (Negative); Bilirubin Urine Negative (Negative); Blood Urine Negative (Negative); Color Urine Yellow; Epithelial Cell Urine Auto >30 /lpf (0-5); Glucose Urine UA Negative (Negative); Ketones Urine 4+ (Negative); Leukocyte Esterase Urine Trace (Negative); Nitrite Urine Negative (Negative); Protein Urine 1+ (Negative); RBC Urine Automated 0-4 /hpf (0-4); Specific Gravity Urine 1.023 (1.000-1.030); Urobilinogen Urine Negative (Negative)
[2020-05-29] MEDS ORDERED: PROMETHAZINE 25 MG/51 ML BAG IV STA (03:47)
[2020-05-29] MEDS ORDERED: MULTI-VITAMIN INFUSION 10 ML, THIAMINE HCL 100 MG, FOLIC ACID 1 MG in SODIUM CHLORIDE 0... IV ONE (03:57)
[2020-05-29 04:31] LABS: Base Excess VBG -13.1 mEq/L; HCO3 VBG 14 mmol/L; PCO2 VBG 39 mmHg (38-50); PO2 VBG 21 mmHg; pH VBG 7.18 (7.36-7.41)
[2020-05-29 04:36] LABS: Oxygen Saturation VBG < 60.0 %
[2020-05-29] MEDS ORDERED: LORazepam 1 MG/2 ML VIAL IV STA (05:10)
[2020-05-29] MEDS ORDERED: ACETAMINOPHEN 325 MG TAB PO PRN (05:18)
[2020-05-29] MEDS ORDERED: LACTATED RINGER'S 1,000 ML IV ONE (05:21)
[2020-05-29] MEDS: oxyCODONE HCL IR 5 MG TAB (IMMEDIATE RELEASE) PO PRN ×4 (05:28→21:21)
--- NOTE | 2020-05-29 05:50 | History & Physical Report ---
Date of Service May 29, 2020 Assessment & Plan (1) Abdominal pain: Possible recurrent alcoholic pancreatitis AGMA secondary to illness mild alcoholic hepatitis Alcohol withdrawal anxiety/mood disorder, at baseline ongoing tobacco abuse chronic thrombocytopenia secondary to chronic liver disease Medical telemetry IVF, bowel rest, judicious narcotic use given history of substance abuse. DT precautions/LEANA S Nicotine patch PRN Social service RE discharge planning DVT prophylaxis. SCDs RE thrombocytopenia Full code Text document was generated using [employer] voice recognition software. It may contain grammatical or spelling errors. Kindly contact undersigned for clarification of any documentation item in question. History of Present Illness Primary Care Provider: William Mullins MD History obtained from patient and records. Medical history significant for anxiety/mood disorder, ongoing tobacco/alcohol abuse, recurrent pancreatitis, chronic thrombocytopenia. Recent confinement 3 weeks ago for recurrent alcoholic pancreatitis. Patient signed out AGAINST MEDICAL ADVICE. Patient started drinking again last week because her fianc cheated on her. Last alcohol intake was 2 days ago. Yesterday patient noted achy upper abdominal pain with nausea emesis reminiscent of pancreatitis attacks. Not any worse than usual. No fever, no chills. No chest pain. Shortness of breath because of abdominal pain as per patient. Intractable discomfort at the ER. Medical History as above Surgical History : D&C Family History : Hypertension, alcoholism Personal/Social history : 5 cigarettes a day, alcohol abuse, currently unemployed Allergies Allergy/AdvReac Type Severity Reaction Status Date / Time lamotrigine [From Lamictal] Allergy Mild Rash Verified 05/29/20 01:47 amairani Allergy Mild GUMS SWELL Verified 05/29/20 01:47 mushroom Allergy Mild GUMS SWELL Verified 05/29/20 01:47 ketorolac [From Toradol] AdvReac Mild Irritable Verified 05/29/20 01:47 Home Medications Medication Instructions Recorded Confirmed Type No Known Home Medications 05/29/20 05/29/20 History Past Med/Surg History Medical History Alcohol abuse Closed fracture of left distal radius Closed fracture of right olecranon process Marijuana use Mood disorder Polysubstance abuse Recurrent pancreatitis Seizure disorder Tobacco use disorder Surgical History History of orthopedic surgery Family History Other No significant family history Social History Smoking Status: Current every day smoker Tobacco Type: Cigarettes Cigarettes Per Day: 1 pack per day; Second Hand Exposure: No; Hx Alcohol Use: Yes Alcohol type: beer and wine Hx Substance Use: Yes Prescribed Medications: Marijuana Last Used Substance: Just Prior to Arrival Preferred Language: Maltese Communication Ability: Effective Visual Impairment: No Limitations Wood 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 Block Floor Installer Required: No Beliefs That Will Affect Care: None marital status: Single Current Living Situation: Homeless Current Living Situation Comment: roomate Feels Safe at Home: Yes Assistive Devices: None Physical Exam Physical Exam: GENERAL: uncomfortable, no respiratory distress SKIN: Normal color, warm HEENT: [place] palpebral conjunctivae, no ptosis, dry buccal mucosa NECK : Supple, no tenderness CHEST : CTA, no tenderness HEART : Tachycardic, no obvious murmurs ABDOMEN: Some distention, epigastric tenderness EXTREMITIES : No LE swelling/tenderness, no other conspicuous deformities noted NEUROLOGIC : Coherent, no facial asymmetry, no other gross focality Results & Data Results & Data ([facility]) Vital Signs (Past 12 Hours) Vital Signs Temp Pulse Pulse Resp BP BP Pulse Ox 05/29/20 05:30 112 H 18 110/75 98 05/29/20 05:02 119 H 18 117/74 100 05/29/20 04:19 113 H 18 127/90 100 05/29/20 03:00 112 H 18 115/76 100 05/29/20 01:37 36.4 C L 145 H 18 127/62 98 Laboratory Results Laboratory Results WBC 3.99 K/uL (4.8-10.8) L 05/29/20 02:25 RBC 4.65 M/uL (4.2-5.4) 05/29/20 02:25 Hgb 14.5 g/dL (12.0-16.0) 05/29/20 02:25 Hct 43.3 % (37-47) 05/29/20 02:25 MCV 93.1 fL (80-100) 05/29/20 02:25 MCH 31.2 pg (25-34) 05/29/20 02:25 MCHC 33.5 g/dL (32-36) 05/29/20 02:25 RDW Std Deviation 59.1 fL (36.4-46.3) H 05/29/20 02:25 RDW Coeff of [place] 17.4 % (11.5-14.5) H 05/29/20 02:25 Plt Count 127 K/uL (130-400) L 05/29/20 02:25 MPV 9.5 fL (7.4-10.4) 05/29/20 02:25 Immature Gran % (Auto) 0.3 % 05/29/20 02:25 Neut % (Auto) 70.1 % 05/29/20 02:25 Lymph % (Auto) 17.3 % 05/29/20 02:25 Stanley % (Auto) 12.0 % 05/29/20 02:25 Eos % (Auto) 0.0 % 05/29/20 02:25 Baso % (Auto) 0.3 % 05/29/20 02:25 Neut # (Auto) 2.80 K/uL (1.4-6.5) 05/29/20 02:25 Lymph # (Auto) 0.69 K/uL (1.2-3.4) L 05/29/20 02:25 Stanley # (Auto) 0.48 K/uL (0.11-0.59) 05/29/20 02:25 Eos # (Auto) 0.00 K/uL (0-0.5) 05/29/20 02:25 Baso # (Auto) 0.01 K/uL (0-0.2) 05/29/20 02:25 Immature Gran # (Auto) 0.01 K/uL (0.00-0.02) 05/29/20 02:25 VBG pH 7.18 (7.36-7.41) L 05/29/20 04:18 VBG pCO2 39 mmHg (38-50) 05/29/20 04:18 VBG pO2 21 mmHg 05/29/20 04:18 VBG HCO3 14 mmol/L 05/29/20 04:18 VBG O2 Saturation < 60.0 % 05/29/20 04:18 VBG Base Excess -13.1 mEq/L 05/29/20 04:18 Barometric Pressure 728.9 mm/Hg 05/29/20 04:18 Sodium 132 mmol/L (136-145) L 05/29/20 02:25 Potassium 5.0 mmol/L (3.5-5.1) 05/29/20 04:08 Chloride 98 mmol/L (98-107) 05/29/20 02:25 Carbon Dioxide 12 mmol/L (21-32) L 05/29/20 02:25 Anion Gap 22.0 (3-11) H 05/29/20 02:25 BUN 8 mg/dl (7-18) 05/29/20 02:25 Creatinine 0.77 mg/dl (0.6-1.2) 05/29/20 02:25 Est Cr Clr Drug Dosing 98.8 ml/min 05/29/20 02:25 Est GFR ( Amer) 122.6 05/29/20 02:25 Est GFR (Non-Af Amer) 105.8 05/29/20 02:25 BUN/Creatinine Ratio 10.3 (10-20) 05/29/20 02:25 Glucose 60 mg/dl (70-99) L 05/29/20 02:25 POC Glucose 103 mg/dl (70-99) H 05/29/20 05:34 Calcium 9.9 mg/dl (8.5-10.1) 05/29/20 02:25 Total Bilirubin 1.1 mg/dl (0.2-1) H 05/29/20 02:25 AST 104 U/L (15-37) H 05/29/20 04:08 ALT 84 U/L (12-78) H 05/29/20 02:25 Alkaline Phosphatase 108 U/L (45-117) 05/29/20 02:25 Total Protein 9.6 gm/dl (6.4-8.2) H 05/29/20 02:25 Albumin 4.7 gm/dl (3.4-5.0) 05/29/20 02:25 Globulin 4.9 gm/dl (2.5-4.0) H 05/29/20 02:25 Albumin/Globulin Ratio 1.0 (0.9-2) 05/29/20 02:25 Lipase 42 U/L (73-393) L 05/29/20 02:25 Specimen Hemolysis 05/29/20 04:08 Urine Color Yellow 05/29/20 Unknown Urine Appearance Clear (Clear) 05/29/20 Unknown Urine pH 5.0 (4.5-7.5) 05/29/20 Unknown Ur Specific [place] 1.023 (1.000-1.030) 05/29/20 Unknown Urine Protein 1+ (Negative) H 05/29/20 Unknown Urine Glucose (UA) Negative (Negative) 05/29/20 Unknown Urine Ketones 4+ (Negative) H 05/29/20 Unknown Urine Blood Negative (Negative) 05/29/20 Unknown Urine Nitrite Negative (Negative) 05/29/20 Unknown Urine Bilirubin Negative (Negative) 05/29/20 Unknown Urine Urobilinogen Negative (Negative) 05/29/20 Unknown Ur Leukocyte Esterase Trace (Negative) H 05/29/20 Unknown Urine WBC (Auto) 10-30 /hpf (0-5) H 05/29/20 Unknown Urine RBC (Auto) 0-4 /hpf (0-4) 05/29/20 Unknown U Hyaline Cast (Auto) 1-5 /lpf (0-5) 05/29/20 Unknown U Epithel Cells (Auto) >30 /lpf (0-5) H 05/29/20 Unknown Urine Bacteria (Auto) Negative (Negative) 05/29/20 Unknown Ur Renal Epithelial Cell Not Reportable 05/29/20 Unknown Urine Test Negative (Negative) 05/29/20 Unknown Ethyl Alcohol mg/dL < 3.0 mg/dl (0-3) 05/29/20 04:08 COVID-19 Eval Order Covid19 [facility] 05/29/20 05:16 SARS-CoV-2, RNA, NAAT NEGATIVE (NEGATIVE) 05/29/20 05:16 Diagnostic Findings Chest x-ray per my interpretation mild hyperinflation EKG as per my interpretation : rate 105, sinus tachycardia, normal axis, T wave abnormalities septal leads,
[2020-05-29 05:57] LABS: Amphetamines+Metham, Urine Pos (Neg); Barbiturates, Urine Neg (Neg); Benzodiazepine, Urine Neg (Neg); Cocaine, Urine Neg (Neg); MDMA (Ecstacy), Urine Neg (Neg); Methadone, Urine Neg (Neg); Opiate, Urine Pos (Neg); Phencyclidine, Urine Neg (Neg)
[2020-05-29] MEDS ORDERED: GABAPENTIN 800 MG TAB PO STA (05:58)
--- NOTE | 2020-05-29 07:49 | XRay Report ---
XR chest 1V portable HISTORY: vomiting COMPARISON: Chest 05/04/2020. FINDINGS: Stable calcified granuloma within the right upper lobe. Otherwise, the lungs are clear. No pleural effusions. No pneumothorax. The heart is normal in size. No rib fractures. IMPRESSION: No significant change compared to the prior study. No acute process. ACT 112: Negative or not required by law. Electronically signed by: Sadiq Pace M.D. 05/29/2020 7:47 AM
[2020-05-29] MEDS ORDERED: MoRPHine SULFATE 2 MG/ML CARP IV PRN (09:11)
[2020-05-29] MEDS ORDERED: LORazepam 2 MG/4 ML VIAL IV PRN (09:11)
[2020-05-29] MEDS ORDERED: ATIVAN IV ALCOHOL WITHDRAWL IV PRN (09:11)
[2020-05-29] MEDS ORDERED: LORazepam 3 MG/6 ML VIAL IV PRN (09:11)
[2020-05-29] MEDS ORDERED: GABAPENTIN 1200MG ALCOHOL WITHDRAWAL LOAD PO STA (09:11)
[2020-05-29] MEDS: METOCLOPRAMIDE HCL INJ 5 MG/ML 2 ML VIAL IV PRN ×2 (09:53→16:00)
[2020-05-29] MEDS: LACTATED RINGER'S 1,000 ML IV SCH ×3 (09:55→20:29)
[2020-05-29 10:12] LABS: Base Excess VBG -1.6 mEq/L; HCO3 VBG 23 mmol/L; PCO2 VBG 39 mmHg (38-50); PO2 VBG 14 mmHg; pH VBG 7.39 (7.36-7.41)
[2020-05-29 10:15] LABS: Oxygen Saturation VBG < 60.0 %
[2020-05-29 10:28] LABS: BUN Creatinine Ratio 9.7 (10-20); Calcium 8.8 mg/dl (8.5-10.1); Creatinine Clr Calc Pharmacy 105.6 ml/min; Est GFR (Non-African American) 114.8; Potassium 4.4 mmol/L (3.5-5.1)
--- NOTE | 2020-05-29 10:37 | CT Scan Report ---
ABDOMEN AND PELVIS CT WITHOUT CONTRAST CT DOSE: 266.45 mGy.cm HISTORY: H/O recurrent alcoholic pancreatitis, mid abdominal pain TECHNIQUE: Multiaxial CT images of the abdomen and pelvis were performed without contrast. A dose lo wering technique was utilized adhering to the principles of ALARA. COMPARISON STUDY: Abdomen and pelvis CT 05/04/2020. FINDINGS: The lung bases are clear. No pneumoperitoneum. No pneumatosis. No suspicious lytic or blast ic osseous lesions. Hepatic steatosis. Additional areas of focal fat seen adjacent to the falciform l igament. Slight increased density within the gallbladder may represent gallbladder sludge. No gallbla dder wall thickening. No renal or ureteral stones. No hydronephrosis. A 5 mm hyperdense focus within the upper pole the left kidney is technically too small to characterize. This could represent a hyper dense cyst. There are few punctate calcified granulomas within the spleen. The adrenal glands are unr emarkable. No significant peripancreatic inflammatory change to suggest acute pancreatitis at this ti me. Normal caliber abdominal aorta. No retroperitoneal lymphadenopathy. The bladder is not well-diste nded but appears unremarkable. The uterus and bilateral adnexa are within normal limits. No pelvic fr ee fluid. Suboptimal evaluation for bowel pathology due to the lack of intravenous and oral contrast. However, no evidence for bowel wall thickening or bowel obstruction. Normal appendix. IMPRESSION: 1. No CT evidence for acute pancreatitis at this time. 2. Severe hepatic steatosis, unchanged. 3. Suspect gallbladder sludge. 4. No definite bowel wall thickening or obstruction. 5. Normal appendix. 6. No hydronephrosis. ACT 112: Negative or not required by law. Electronically signed by: Sadiq Pace M.D. 05/29/2020 10:36 AM
[2020-05-29] MEDS: LORazepam 1 MG/2 ML VIAL IV PRN ×2 (11:03→23:56)
[2020-05-29] MEDS: GABAPENTIN 600 MG TAB PO SCH ×2 (11:03→17:58)
[2020-05-29] MEDS: hydrOXYzine HCl 10 MG TAB PO PRN (16:03)
--- NOTE | 2020-05-29 16:11 | Hospitalist Progress Note ---
Date of Service May 29, 2020 Assessment & Plan (1) Abdominal pain: Possible recurrent alcoholic pancreatitis Anion gap metabolic acidosis Severe hepatic steatosis/gallbladder sludge Alcohol use disorder -CT ABD:No CT evidence for acute pancreatitis at this time. Severe hepatic steatosis, unchanged. Suspect gallbladder sludge. No definite bowel wall thickening or obstruction. Normal appendix. No hydronephrosis. -No significant increase in lipase levels -Continue IV fluids -Continue gabapentin, thiamine, folic acid -Monitor for alcohol withdrawal -Counseled on multiple occasions to quit alcohol use -Advance diet as tolerated -Acidosis resolved with IV fluids Anxiety/mood disorder At baseline Noncompliant with medications Currently not on any medications Ongoing tobacco abuse Counseled to quit smoking Chronic thrombocytopenia secondary to chronic liver disease No acute bleeding issues Monitor platelets DVT Px: SCDs RE thrombocytopenia Code Status Full code Admission and Anticipated Discharge Date Admission Date: May 29, 2020 Subjective Patient is seen and examined at bedside States having nausea, vomiting this morning Also reports generalized pain Denies chest pain, dyspnea, dizziness Tolerated clear liquid diet Offers no other complaints Review of Systems Review of Systems: All systems reviewed & are unremarkable except as noted in HPI & below Physical Exam Physical Exam: Physical Exam: Vitals signs as noted above General Appearance:Moderately built and nourished, no apparent distress Head: normocephalic, Atraumatic Eyes: normal inspection, EOMI Neck: supple, Trachea midline Respiratory/Chest: Normal breath sounds, CTA Cardiovascular: S1, S2, No murmur, +Tachycardia Abdomen/GI:Soft, Generalized tender, No guarding or rigidity, Bowel sounds present Extremities/Musculoskelatal:normal inspection, no edema Neurologic/Psych:AAOX3, grossly no focal neurological deficits Skin: normal color, warm Results & Data Results & Data ([facility]) Vital Signs (Past 12 Hours) Vital Signs Temp Pulse Resp BP BP Pulse Ox 05/29/20 11:46 37.0 C 109 H 18 100/67 99 05/29/20 09:44 37.3 C 121 H 16 111/70 100 05/29/20 08:30 114/54 L 94 05/29/20 08:20 99 05/29/20 08:00 105/53 L 99 05/29/20 06:30 115 H 18 116/64 97 05/29/20 06:00 118 H 18 118/64 98 05/29/20 05:30 112 H 18 110/75 98 05/29/20 05:02 119 H 18 117/74 100 05/29/20 04:19 113 H 18 127/90 100 Laboratory Results Short CBC 05/29/20 Range/Units 02:25 WBC 3.99 L (4.8-10.8) K/uL Hgb 14.5 (12.0-16.0) g/dL Hct 43.3 (37-47) % Plt Count 127 L (130-400) K/uL BMP 05/29/20 05/29/20 05/29/20 02:25 04:08 09:52 Sodium 132 L 136 Potassium 5.0 4.4 Chloride 98 105 Carbon Dioxide 12 L 24 BUN 8 7 Creatinine 0.77 0.72 Glucose 60 L 107 H Calcium 9.9 8.8 Liver Function 05/29/20 05/29/20 Range/Units 02:25 04:08 Total Bilirubin 1.1 H (0.2-1) mg/dl AST 104 H (15-37) U/L ALT 84 H (12-78) U/L Alkaline Phosphatase 108 (45-117) U/L Albumin 4.7 (3.4-5.0) gm/dl Urine 05/29/20 Range/Units Unknown Urine Color Yellow Urine Appearance Clear (Clear) Urine pH 5.0 (4.5-7.5) Ur Specific [place] 1.023 (1.000-1.030) Urine Protein 1+ H (Negative) Urine Glucose (UA) Negative (Negative)
[2020-05-29] MEDS: QUEtiapine FUMARATE 200 MG TAB PO SCH (21:21)
[2020-05-30] MEDS: LACTATED RINGER'S 1,000 ML IV SCH ×2 (01:21→06:21)
[2020-05-30] MEDS: oxyCODONE HCL IR 5 MG TAB (IMMEDIATE RELEASE) PO PRN (02:12)
[2020-05-30] MEDS: GABAPENTIN 600 MG TAB PO SCH ×3 (06:22→21:29)
[2020-05-30] MEDS: LORazepam 1 MG/2 ML VIAL IV PRN (06:22)
[2020-05-30 06:43] LABS: Hematocrit (blood only) 33.4 % (37-47); Hemoglobin 10.9 g/dL (12.0-16.0); Mean Corpuscular Hemoglobin 30.6 pg (25-34); Mean Corpuscular Hgb Conc 32.6 g/dL (32-36); Mean Corpuscular Volume 93.8 fL (80-100); Platelet Count 83 K/uL (130-400); RDW Coefficient of Variation 17.3 % (11.5-14.5); RDW Standard Deviation 59.9 fL (36.4-46.3); Red Blood Count 3.56 M/uL (4.2-5.4); White Blood Count 3.19 K/uL (4.8-10.8)
[2020-05-30 07:03] LABS: Basophils # (auto) 0.01 K/uL (0-0.2); Basophils % (auto) 0.3 %; Eosinophils # (auto) 0.04 K/uL (0-0.5); Eosinophils % (auto) 1.3 %; Immature Granulocytes # (auto) 0.01 K/uL (0.00-0.02); Immature Granulocytes % (auto) 0.3 %; Lymphocytes # (auto) 1.92 K/uL (1.2-3.4); Lymphocytes % (auto) 60.2 %; Monocytes % (auto) 12.5 %; Neutrophils # (auto) 0.81 K/uL (1.4-6.5); Neutrophils % (auto) 25.4 %
[2020-05-30 07:12] LABS: Alanine Aminotransferase 39 U/L (12-78); Albumin Globulin Ratio 1.1 (0.9-2); Albumin Level 3.3 gm/dl (3.4-5.0); Alkaline Phosphatase 68 U/L (45-117); Aspartate Aminotransferase 48 U/L (15-37); BUN Creatinine Ratio 4.5 (10-20); Blood Urea Nitrogen 2 mg/dl (7-18); Calcium 8.5 mg/dl (8.5-10.1); Carbon Dioxide 30 mmol/L (21-32); Chloride 106 mmol/L (98-107); Creatinine Clr Calc Pharmacy 149.1 ml/min; Est GFR (African American) > 150.0; Est GFR (Non-African American) 131.8; Globulin 2.9 gm/dl (2.5-4.0); Glucose 87 mg/dl (70-99); Potassium 3.2 mmol/L (3.5-5.1); Sodium 140 mmol/L (136-145); Total Protein 6.2 gm/dl (6.4-8.2)
[2020-05-30] MEDS ORDERED: oxyCODONE HCL IR 5 MG TAB (IMMEDIATE RELEASE) PO PRN (07:54)
[2020-05-30] MEDS ORDERED: MoRPHine SULFATE 2 MG/ML CARP IV PRN (07:55)
[2020-05-30] MEDS: THIAMINE HCL 100 MG TAB PO SCH (08:26)
[2020-05-30] MEDS: FOLIC ACID 1 MG TAB PO SCH (08:26)
[2020-05-30] MEDS: hydrOXYzine HCl 10 MG TAB PO PRN (08:27)
[2020-05-30] MEDS: MULTIVITAMIN TAB PO SCH (08:27)
[2020-05-30] MEDS ORDERED: POTASSIUM CHLORIDE CRTAB 20 MEQ TABCR PO ONE (08:30)
[2020-05-30] MEDS ORDERED: LORazepam 1 MG TAB PO PRN (11:38)
--- NOTE | 2020-05-30 17:07 | Hospitalist Progress Note ---
Date of Service May 30, 2020 Assessment & Plan (1) Abdominal pain: Possible recurrent alcoholic pancreatitis Anion gap metabolic acidosis Severe hepatic steatosis/gallbladder sludge Alcohol use disorder -CT ABD:No CT evidence for acute pancreatitis at this time. Severe hepatic steatosis, unchanged. Suspect gallbladder sludge. No definite bowel wall thickening or obstruction. Normal appendix. No hydronephrosis. -No significant increase in lipase levels -Received IV fluids -Continue gabapentin, thiamine, folic acid -Monitor for alcohol withdrawal -Counseled on multiple occasions to quit alcohol use -Tolerated regular diet -Acidosis resolved with IV fluids -Refused rehab on multiple occasions in the past. Drug Abuse Tox Screen: Positive for opiates, amphetamine, marijuana Patient was noted by RN/DIGITAL MARKETING OFFICER to have LSD, paraphernalia at her bedside Patient admitted to use LSD, marijuana (Unknown timing of use) Counseled about drug use Denies IV drug use Neutropenia Likely secondary to alcohol use No signs of infection Monitor CBC Continue neutropenic precautions for now Anxiety/mood disorder At baseline Noncompliant with medications Currently not on any medications Ongoing tobacco abuse Counseled to quit smoking Chronic thrombocytopenia secondary to chronic liver disease No acute bleeding issues Monitor platelets DVT Px: SCDs RE thrombocytopenia Code Status Full code Admission and Anticipated Discharge Date Admission Date: May 29, 2020 Subjective Patient is seen and examined at bedside Patient was noted by RN to have LSD, paraphernalia at her bedside Patient admitted to use LSD, marijuana (Unknown timing) and tried to smoke cigarette in bathroom as well Continues to complain of generalized pain Tolerating regular diet " Am I in trouble " Sitter at bedside Denies chest pain, dyspnea, dizziness Review of Systems Review of Systems: All systems reviewed & are unremarkable except as noted in HPI & below Physical Exam Physical Exam: Physical Exam: Vitals signs as noted above General Appearance:Moderately built and nourished, no apparent distress Head: normocephalic, Atraumatic Eyes: normal inspection, EOMI Neck: supple, Trachea midline Respiratory/Chest: Normal breath sounds, CTA Cardiovascular: S1, S2, No murmur, +Tachycardia Abdomen/GI:Soft, non tender, No guarding or rigidity, Bowel sounds present Extremities/Musculoskelatal:normal inspection, no edema Neurologic/Psych:AAOX3, grossly no focal neurological deficits Skin: normal color, warm Results & Data Results & Data ([facility]) Vital Signs (Past 12 Hours) Vital Signs Temp Pulse Pulse Resp BP BP Pulse Ox 05/30/20 15:32 36.9 C 97 H 18 133/79 94 05/30/20 15:00 95 H 05/30/20 12:37 37.1 C 98 H 18 101/65 97 05/30/20 09:34 133 H 18 117/86 100 05/30/20 07:30 120 H Laboratory Results Short CBC 05/30/20 Range/Units 06:26 WBC 3.19 L (4.8-10.8) K/uL Hgb 10.9 L D (12.0-16.0) g/dL Hct 33.4 L (37-47) % Plt Count 83 L (130-400) K/uL BMP 05/30/20 06:26 Sodium 140 Potassium 3.2 L D Chloride 106 Carbon Dioxide 30 BUN 2 L D Creatinine 0.51 L Glucose 87 Calcium 8.5 Liver Function 05/30/20 Range/Units 06:26 Total Bilirubin 1.0 (0.2-1) mg/dl AST 48 H (15-37) U/L ALT 39 (12-78) U/L Alkaline Phosphatase 68 (45-117) U/L Albumin 3.3 L (3.4-5.0) gm/dl
--- NOTE | 2020-05-30 21:27 | Electrocardiogram Report ---
Test Reason : Blood Pressure : / mmHG Vent. Rate : 104 BPM Atrial Rate : 104 BPM P-R Int : 134 ms QRS Dur : 074 ms QT Int : 360 ms P-R-T Axes : 071 077 066 degrees QTc Int : 473 ms Sinus tachycardia Otherwise normal ECG When compared with ECG of 05-MAY-2020 09:27, Nonspecific T wave abnormality now evident in Anterior leads Confirmed by Marquez Contreras ([id number]) on 05/30/2020 9:27:09 PM Referred By: REFERRED SELF Confirmed By:Marquez Contreras
[2020-05-30] MEDS: QUEtiapine FUMARATE 200 MG TAB PO SCH (21:28)
[2020-05-31] MEDS: hydrOXYzine HCl 10 MG TAB PO PRN ×2 (01:27→17:41)
[2020-05-31] MEDS ORDERED: MAGNESIUM SULFATE / D5W 1 GM/100 ML BAG IV ONE (06:00)
[2020-05-31] MEDS ORDERED: POTASSIUM CHLORIDE 40 MEQ in SODIUM CHLORIDE 0.9% 1000ML 1,000 ML IV ONE (06:00)
[2020-05-31] MEDS ORDERED: LORazepam 1 MG/2 ML VIAL IV STA (06:21)
[2020-05-31] MEDS ORDERED: LORazepam 2 MG/4 ML VIAL ONE (06:26)
[2020-05-31] MEDS: GABAPENTIN 600 MG TAB PO SCH ×2 (06:32→21:08)
[2020-05-31] MEDS: MULTIVITAMIN TAB PO SCH (08:30)
[2020-05-31] MEDS: FOLIC ACID 1 MG TAB PO SCH (08:30)
[2020-05-31] MEDS: THIAMINE HCL 100 MG TAB PO SCH (08:30)
[2020-05-31 08:52] LABS: Hematocrit (blood only) 36.1 % (37-47); Hemoglobin 11.8 g/dL (12.0-16.0); Mean Corpuscular Hemoglobin 30.6 pg (25-34); Mean Corpuscular Hgb Conc 32.7 g/dL (32-36); Mean Corpuscular Volume 93.8 fL (80-100); Red Blood Count 3.85 M/uL (4.2-5.4); White Blood Count 2.49 K/uL (4.8-10.8)
[2020-05-31 09:04] LABS: Mean Platelet Volume 8.6 fL (7.4-10.4); Platelet Count 72 K/uL (130-400)
[2020-05-31 09:17] LABS: Basophils # (auto) 0.01 K/uL (0-0.2); Basophils % (auto) 0.4 %; Eosinophils # (auto) 0.04 K/uL (0-0.5); Eosinophils % (auto) 1.6 %; Lymphocytes % (auto) 44.2 %; Monocytes # (auto) 0.36 K/uL (0.11-0.59); Monocytes % (auto) 14.5 %; Neutrophils # (auto) 0.98 K/uL (1.4-6.5); Neutrophils % (auto) 39.3 %
[2020-05-31 09:20] LABS: BUN Creatinine Ratio 5.7 (10-20); Calcium 8.9 mg/dl (8.5-10.1); Creatinine Clr Calc Pharmacy 122.6 ml/min; Est GFR (African American) 143.2; Est GFR (Non-African American) 123.6; Magnesium 2.2 mg/dl (1.8-2.4); Potassium 3.5 mmol/L (3.5-5.1)
[2020-05-31 11:46] LABS: Amphetamine Urine, Confirm 509 ng/mL (<250); Codeine Urine NEGATIVE ng/mL (<50); Hydrocodone Urine NEGATIVE ng/mL (<50); Hydromor Urine NEGATIVE ng/mL (<50); Marijuana Quant, GCMS Urine 1090 ng/mL (<5); Methamphetamine, Ur Confirm 665 ng/mL (<250); Morphine Urine 9580 ng/mL (<50); Norhydrocodone Conf Ur NEGATIVE ng/mL (<50); Noroxycodone Urine NEGATIVE ng/mL (<50); Oxycodone Urine NEGATIVE ng/mL (<50); Oxymorph Urine NEGATIVE ng/mL (<50)
--- NOTE | 2020-05-31 15:54 | Hospitalist Progress Note ---
Date of Service May 31, 2020 Assessment & Plan (1) Abdominal pain: Possible recurrent alcoholic pancreatitis Anion gap metabolic acidosis Severe hepatic steatosis/gallbladder sludge Alcohol use disorder -CT ABD:No CT evidence for acute pancreatitis at this time. Severe hepatic steatosis, unchanged. Suspect gallbladder sludge. No definite bowel wall thickening or obstruction. Normal appendix. No hydronephrosis. -No significant increase in lipase levels -Received IV fluids -Continue gabapentin, thiamine, folic acid -Monitor for alcohol withdrawal -Counseled on multiple occasions to quit alcohol use -Tolerated regular diet -Acidosis resolved with IV fluids -Refused rehab on multiple occasions in the past. - Continue current management Drug Abuse Tox Screen: Positive for opiates, amphetamine, marijuana Patient was noted by RN/TIMBER FRAMER to have LSD, paraphernalia at her bedside Patient admitted to use LSD, marijuana (Unknown timing of use) Counseled about drug use Denies IV drug use Avoid Narcotics as able Neutropenia Likely secondary to alcohol use No signs of infection Monitor CBC Continue neutropenic precautions for now Neutropenia slowly improving Anxiety/mood disorder At baseline Noncompliant with medications Currently not on any medications Needs follow up with Psychiatry as outpatient Ongoing tobacco abuse Counseled to quit smoking Chronic thrombocytopenia secondary to chronic liver disease No acute bleeding issues Monitor platelets DVT Px: SCDs RE thrombocytopenia Code Status Full code Admission and Anticipated Discharge Date Admission Date: May 29, 2020 Subjective Patient is seen and examined at bedside Patient mostly sleeping but wakes up and demands for Pain meds and Ativan Low withdrawal scores when assessed Reports nausea and generalized pain Tolerates food and no vomiting during hospitalization Denies chest pain, dyspnea, dizziness Psychiatry RN discussed with patient at bedside. Review of Systems Review of Systems: All systems reviewed & are unremarkable except as noted in HPI & below Physical Exam Physical Exam: Physical Exam: Vitals signs as noted above General Appearance:Moderately built and nourished, no apparent distress Head: normocephalic, Atraumatic Eyes: normal inspection, EOMI Neck: supple, Trachea midline Respiratory/Chest: Normal breath sounds, CTA Cardiovascular: S1, S2, No murmur, +Tachycardia Abdomen/GI:Soft, non tender, No guarding or rigidity, Bowel sounds present Extremities/Musculoskelatal:normal inspection, no edema Neurologic/Psych:AAOX3, grossly no focal neurological deficits Skin: normal color, warm Results & Data Results & Data ([facility]) Vital Signs (Past 12 Hours) Vital Signs Temp Pulse Resp BP BP Pulse Ox 05/31/20 15:21 36.5 C 100 H 16 96/65 L 98 05/31/20 11:35 36.9 C 84 20 101/66 99 05/31/20 08:09 36.7 C 96 H 18 94/61 L 98 Laboratory Results Short CBC 05/31/20 Range/Units 08:40 WBC 2.49 L (4.8-10.8) K/uL Hgb 11.8 L (12.0-16.0) g/dL Hct 36.1 L (37-47) % Plt Count 72 L (130-400) K/uL BMP 05/31/20 08:40 Sodium 141 Potassium 3.5 Chloride 109 H Carbon Dioxide 27 BUN 4 L Creatinine 0.62 Glucose 125 H Calcium 8.9
[2020-05-31] MEDS: QUEtiapine FUMARATE 200 MG TAB PO SCH (21:08)
[2020-05-31] MEDS: PROMETHAZINE HCL 6.25 MG in SODIUM CHLORIDE 0.9% 50 ML IV PRN (21:08)
[2020-06-01 06:04] LABS: Hematocrit (blood only) 36.5 % (37-47); Hemoglobin 11.9 g/dL (12.0-16.0); Mean Corpuscular Hemoglobin 30.5 pg (25-34); Mean Corpuscular Hgb Conc 32.6 g/dL (32-36); Mean Corpuscular Volume 93.6 fL (80-100); RDW Coefficient of Variation 16.7 % (11.5-14.5); RDW Standard Deviation 57.3 fL (36.4-46.3); White Blood Count 2.84 K/uL (4.8-10.8)
[2020-06-01 06:05] LABS: Mean Platelet Volume 8.5 fL (7.4-10.4); Platelet Count 80 K/uL (130-400)
[2020-06-01 06:29] LABS: Basophils # (auto) 0.01 K/uL (0-0.2); Basophils % (auto) 0.4 %; Eosinophils # (auto) 0.08 K/uL (0-0.5); Eosinophils % (auto) 2.8 %; Giant Platelets 2+; Immature Granulocytes # (auto) 0.01 K/uL (0.00-0.02); Immature Granulocytes % (auto) 0.4 %; Lymphocytes # (auto) 1.44 K/uL (1.2-3.4); Lymphocytes % (auto) 50.7 %; Monocytes # (auto) 0.44 K/uL (0.11-0.59); Monocytes % (auto) 15.5 %; Neutrophils # (auto) 0.86 K/uL (1.4-6.5); Neutrophils % (auto) 30.2 %
[2020-06-01 06:34] LABS: BUN Creatinine Ratio 10.1 (10-20); Blood Urea Nitrogen 4 mg/dl (7-18); Calcium 8.9 mg/dl (8.5-10.1); Carbon Dioxide 24 mmol/L (21-32); Chloride 110 mmol/L (98-107); Creatinine Clr Calc Pharmacy 172.8 ml/min; Est GFR (African American) > 150.0; Est GFR (Non-African American) 138.3; Glucose 94 mg/dl (70-99); Potassium 3.4 mmol/L (3.5-5.1); Sodium 139 mmol/L (136-145)
[2020-06-01] MEDS: MULTIVITAMIN TAB PO SCH (07:57)
[2020-06-01] MEDS: THIAMINE HCL 100 MG TAB PO SCH (07:57)
[2020-06-01] MEDS: FOLIC ACID 1 MG TAB PO SCH (07:57)
[2020-06-01] MEDS: PROMETHAZINE HCL 6.25 MG in SODIUM CHLORIDE 0.9% 50 ML IV PRN (08:41)
[2020-06-01] MEDS ORDERED: POTASSIUM CHLORIDE CRTAB 20 MEQ TABCR PO ONE (09:14)
[2020-06-01] MEDS ORDERED: GABAPENTIN 600 MG TAB PO ONE (09:16)
--- NOTE | 2020-06-01 11:16 | Hospitalist Progress Note ---
Date of Service June 01, 2020 Assessment & Plan (1) Abdominal pain: Possible recurrent alcoholic pancreatitis Anion gap metabolic acidosis Severe hepatic steatosis/gallbladder sludge Alcohol use disorder -CT ABD:No CT evidence for acute pancreatitis at this time. Severe hepatic steatosis, unchanged. Suspect gallbladder sludge. No definite bowel wall thickening or obstruction. Normal appendix. No hydronephrosis. -No significant increase in lipase levels -Received IV fluids -Continue gabapentin, thiamine, folic acid -Monitor for alcohol withdrawal -Counseled on multiple occasions to quit alcohol use -Tolerated regular diet -Acidosis resolved with IV fluids -Refused rehab on multiple occasions in the past. Drug Abuse Tox Screen: Positive for opiates, amphetamine, marijuana Patient was noted by RN/PROTOTYPE CARPENTER to have LSD, paraphernalia at her bedside Patient admitted to use LSD, marijuana (Unknown timing of use) Counseled about drug use Denies IV drug use Avoid Narcotics as able Advised to follow up with psychiatry as outpatient Neutropenia Likely secondary to alcohol use No signs of infection Monitor CBC Continue neutropenic precautions Neutropenia slowly improving Anxiety/mood disorder At baseline Noncompliant with medications Currently not on any medications Needs follow up with Psychiatry as outpatient Ongoing tobacco abuse Counseled to quit smoking Chronic thrombocytopenia secondary to chronic liver disease No acute bleeding issues Monitor platelets DVT Px: SCDs RE thrombocytopenia Code Status Full code Admission and Anticipated Discharge Date Admission Date: May 29, 2020 Subjective Patient is seen and examined at bedside States feeling better today Less anxious Reports nausea and generalized pain but no distress on exam and tolerates diet with no vomiting Denies chest pain, dyspnea, dizziness Physical Exam Physical Exam: Physical Exam: Vitals signs as noted above General Appearance:Moderately built and nourished, no apparent distress Head: normocephalic, Atraumatic Eyes: normal inspection, EOMI Neck: supple, Trachea midline Respiratory/Chest: Normal breath sounds, CTA Cardiovascular: S1, S2, No murmur, +Tachycardia Abdomen/GI:Soft, non tender, No guarding or rigidity, Bowel sounds present Extremities/Musculoskelatal:normal inspection, no edema Neurologic/Psych:AAOX3, grossly no focal neurological deficits Skin: normal color, warm Results & Data Results & Data ([facility]) Vital Signs (Past 12 Hours) Vital Signs Temp Pulse Pulse Resp BP Pulse Ox 06/01/20 08:29 36.7 C 98 H 20 101/68 99 06/01/20 04:04 36.5 C 97 H 16 97/63 L 99 06/01/20 01:55 102 H 05/31/20 23:17 36.8 C 95 H 16 113/65 100
--- NOTE | 2020-06-01 11:39 | Discharge Summary ---
Date of Service June 01, 2020 Admission HPI Per Admitting Provider History obtained from patient and records. Medical history significant for anxiety/mood disorder, ongoing tobacco/alcohol abuse, recurrent pancreatitis, chronic thrombocytopenia. Recent confinement 3 weeks ago for recurrent alcoholic pancreatitis. Patient signed out AGAINST MEDICAL ADVICE. Patient started drinking again last week because her fianc cheated on her. Last alcohol intake was 2 days ago. Yesterday patient noted achy upper abdominal pain with nausea emesis reminiscent of pancreatitis attacks. Not any worse than usual. No fever, no chills. No chest pain. Shortness of breath because of abdominal pain as per patient. Intractable discomfort at the ER. Medical History as above Surgical History : D&C Family History : Hypertension, alcoholism Personal/Social history : 5 cigarettes a day, alcohol abuse, currently unemployed Admission Exam Per Admitting Provider Physical Exam Physical Exam: GENERAL: uncomfortable, no respiratory distress SKIN: Normal color, warm HEENT: [place] palpebral conjunctivae, no ptosis, dry buccal mucosa NECK : Supple, no tenderness CHEST : CTA, no tenderness HEART : Tachycardic, no obvious murmurs ABDOMEN: Some distention, epigastric tenderness EXTREMITIES : No LE swelling/tenderness, no other conspicuous deformities noted NEUROLOGIC : Coherent, no facial asymmetry, no other gross focality Principal Diagnosis Alcohol use disorder Drug abuse Anion gap metabolic acidosis Neutropenia Discharge Data Allergies Allergy/AdvReac Type Severity Reaction Status Date / Time lamotrigine [From Lamictal] Allergy Mild Rash Verified 05/29/20 01:47 amairani Allergy Mild GUMS SWELL Verified 05/29/20 01:47 mushroom Allergy Mild GUMS SWELL Verified 05/29/20 01:47 ketorolac [From Toradol] AdvReac Mild Irritable Verified 05/29/20 01:47 Consultations 05/29/20 05:32 ED Decision to Admit Stat 05/29/20 09:11 Consult Case Management - Discharge Planning Routine Procedures Performed CT ABD:No CT evidence for acute pancreatitis at this time. Severe hepatic steatosis, unchanged. Suspect gallbladder sludge. No definite bowel wall thickening or obstruction. Normal appendix. No hydronephrosis. Ordered Studies 05/29/20 09:40 CT abd pelvis wo con Urgent Hospital Course (1) Abdominal pain: Possible recurrent alcoholic pancreatitis Anion gap metabolic acidosis Severe hepatic steatosis/gallbladder sludge Alcohol use disorder -CT ABD:No CT evidence for acute pancreatitis at this time. Severe hepatic steatosis, unchanged. Suspect gallbladder sludge. No definite bowel wall thickening or obstruction. Normal appendix. No hydronephrosis. -No significant increase in lipase levels -Received IV fluids -Continue gabapentin, thiamine, folic acid -Monitor for alcohol withdrawal -Counseled on multiple occasions to quit alcohol use -Tolerated regular diet -Acidosis resolved with IV fluids -Refused rehab on multiple occasions in the past. Drug Abuse Tox Screen: Positive for opiates, amphetamine, marijuana Patient was noted by RN/BILINGUAL TEACHER to have LSD, paraphernalia at her bedside Patient admitted to use LSD, marijuana (Unknown timing of use) Counseled about drug use Denies IV drug use Avoid Narcotics as able Advised to follow up with psychiatry as outpatient Neutropenia Likely secondary to alcohol use No signs of infection Monitor CBC Continue neutropenic precautions Neutropenia slowly improving Anxiety/mood disorder At baseline Noncompliant with medications Currently not on any medications Needs follow up with Psychiatry as outpatient Ongoing tobacco abuse Counseled to quit smoking Chronic thrombocytopenia secondary to chronic liver disease No acute bleeding issues Monitor platelets DVT Px: SCDs RE thrombocytopenia Code Status Full code Total Time Total Time Spent Total Time Spent (In Minutes): 43 minutes Total Time Includes: Examination of the Patient, Discharge Planning, Medication Reconciliation, Communication With Other Providers and Other Discharge Plan Discharge Items Patient Disposition: Home - Self-Care Reason For Visit: ABD PAIN, MET ACIDOSIS,TACHY Discharge Diagnosis: Alcohol use disorder Drug abuse Anion gap metabolic acidosis Neutropenia Activity: Per Instructions section Exercise/Sports: Gradually increase as tolerated Non-emergency contact: Primary Care Provider and Psychiatrist Call non-emergency contact if: you have any medication questions, your symptoms worsen, your pain is worsening and you have a fever Follow-up/Referrals: William Mullins MD [Primary Care Provider] - Diet: Regular Addtl Attending Provider Instructions: Follow up with your Primary Care physician on Jun 04, 2020 at 11:20Am Follow up with your Psychiatrist as advised Seek immediate medical attention if your symptoms reoccur or worsen Pending Studies at Discharge: No Stand-Alone Forms: My [email or web address], Smoking Cessation Medications and DC Order Prescriptions: New gabapentin 600 mg Tablet 600 mg PO Q24H Qty: 2 RF: 0 folic acid 1 mg Tablet 1 mg PO QAM Qty: 30 RF: 0 thiamine HCl (vitamin B1) [Vitamin B-1] 100 mg Tablet 100 mg PO QAM Qty: 30 RF: 0 No Action No Known Home Medications RF: 0 Discharge Orders: Discharge Order (Routine); Ordered 06/01/20 Ordered By: Nathan Grissom Admission Data Admit Date/Time: 05/29/20 05:52 Attending Provider: Nathan Grissom Admit Provider: Richar Daniels Primary Care Provider: William Mullins Other Providers: Richar Daniels Other Interventions: Discharge Summary Assessment (RN) Last Done: 06/01/20 11:42 PSY Interdisciplinary Discharge Planning Last Done: 06/01/20 10:37
[2020-06-01] MEDS ORDERED: GABAPENTIN 600 MG TAB PO SCH (22:00)
== END 2020-06-01 13:10 | disposition home or self-care (01) ==
LOC: ED 01:34 → INTOOBSV 05:52 → 2N 05:52 → 2W 05-30 10:15

== ENCOUNTER 2021-06-07 19:55 | Inpatient (IN) ==
[2021-06-07] MEDS ORDERED: LORazepam 2 MG/4 ML VIAL IV STA (19:59)
[2021-06-07] MEDS ORDERED: SODIUM CHLORIDE 0.9% 1000ML 1,000 ML IV SCH (20:00)
[2021-06-07] MEDS ORDERED: HALOPERIDOL LACTATE 5 MG/ML 1 ML VIAL IM STA (20:07)
[2021-06-07] MEDS ORDERED: diphenhydrAMINE 50 MG/ML VIAL IM STA (20:07)
[2021-06-07 20:58] LABS: Albumin Level 4.2 gm/dl (3.4-5.0); Bilirubin Direct 0.1 mg/dl (0-0.2); Bilirubin,Total 0.5 mg/dl (0.2-1.0); Total Protein 7.5 gm/dl (6.0-8.3)
[2021-06-07 21:02] LABS: Acetaminophen < 3 ug/ml (10-30); Salicylate < 3.0 mg/dl (3.0-30)
[2021-06-07 21:16] LABS: Hematocrit (blood only) 39.1 % (37-47); Mean Corpuscular Hemoglobin 33.1 pg (25-34); Mean Corpuscular Hgb Conc 33.2 g/dL (32-36); Mean Corpuscular Volume 99.5 fL (80-100); Mean Platelet Volume 9.5 fL (7.4-10.4); Platelet Count 89 K/uL (130-400); RDW Coefficient of Variation 16.9 % (11.5-14.5); RDW Standard Deviation 61.6 fL (36.4-46.3); Red Blood Count 3.93 M/uL (4.2-5.4); White Blood Count 3.76 K/uL (4.8-10.8)
[2021-06-07 21:18] LABS: Basophils # (auto) 0.06 K/uL (0-0.2); Basophils % (auto) 1.6 %; Eosinophils # (auto) 0.04 K/uL (0-0.5); Eosinophils % (auto) 1.1 %; Immature Granulocytes # (auto) 0.02 K/uL (0.00-0.02); Immature Granulocytes % (auto) 0.5 %; Lymphocytes # (auto) 2.26 K/uL (1.2-3.4); Lymphocytes % (auto) 60.1 %; Monocytes # (auto) 0.72 K/uL (0.11-0.59); Monocytes % (auto) 19.1 %; Neutrophils # (auto) 0.66 K/uL (1.4-6.5); Neutrophils % (auto) 17.6 %; Polychromasia 1+
[2021-06-07 22:06] LABS: BUN Creatinine Ratio 11.3 (10-20); Blood Urea Nitrogen 7 mg/dl (6-23); Calcium 8.5 mg/dl (8.5-10.1); Chloride 99 mmol/L (98-107); Est GFR (African American) 142.2 ml/min; Est GFR (Non-African American) 122.7 ml/min; Glucose 157 mg/dl (70-99(Fasting)); Potassium 3.3 mmol/L (3.5-5.1); Sodium 137 mmol/L (136-145)
[2021-06-07] MEDS ORDERED: MULTI-VITAMIN INFUSION 10 ML, THIAMINE HCL 100 MG, FOLIC ACID 1 MG in SODIUM CHLORIDE 0... IV ONE (22:23)
[2021-06-07] MEDS ORDERED: OPTIRAY 320 100ml IV ONE (22:40)
--- NOTE | 2021-06-07 22:53 | CT Scan Report ---
CT head/brain wo con CLINICAL HISTORY: etoh fall . Pain COMPARISON STUDY: 03/02/2020 CT DOSE: TECHNIQUE: Standard CT of the Brain was performed without IV contrast. A dose lowering technique was utilized adhering to the principles of ALARA. FINDINGS: Extraaxial space: There is no evidence for subdural hematoma. There are no extra-axial fluid collecti ons. Ventricles and cisterns: The ventricles are normal in size and configuration. There is no evidence f or midline shift or mass effect. Parenchyma: There is no subarachnoid or intraparenchymal hemorrhage. There is no evidence for an acu te infarct or cerebral edema. There is homogeneous attenuation of the brain parenchyma. There are no gross mass lesions. Osseous structures: There is no evidence for an acute fracture. The visualized paranasal sinuses are clear. The mastoid air cells are clear bilaterally. Soft tissues: There is no evidence for focal soft tissue swelling. IMPRESSION: No acute intracerebral pathology. ACT 112: Negative or not required by law. Electronically signed by: Rusty Hanna M.D. 06/07/2021 10:52 PM
--- NOTE | 2021-06-07 22:57 | CT Scan Report ---
CT cervical spine wo con CLINICAL HISTORY: etoh fall . Neck pain COMPARISON STUDY: 09/16/2019 CT DOSE: 2156.38 mGy.cm TECHNIQUE: Standard CT of the Cervical Spine was performed without IV contrast. A dose lowering te chnique was utilized adhering to the principles of ALARA. FINDINGS: Bones: There is no evidence for an acute fracture or malalignment. The heights of the vertebral sampson s are maintained. The vertebral bodies are in anatomic alignment. The appearance of the tip of the od ontoid is unchanged. The odontoid is intact and the atlantoaxial articulation is within normal limits . Disc spaces:The disc space heights are maintained. Apophyseal joints:The apophyseal joints are intact bilaterally. Soft tissues:The prevertebral soft tissues are within normal limits. IMPRESSION: Negative CT of the cervical spine. ACT 112: Negative or not required by law. Electronically signed by: Rusty Hanna M.D. 06/07/2021 10:56 PM
--- NOTE | 2021-06-07 23:05 | CT Scan Report ---
CT abd pelvis IV con only CLINICAL HISTORY: Abdominal pain. Evaluate for recurrent pancreatitis COMPARISON STUDY: 05/29/2020 CT DOSE: TECHNIQUE: Standard CT of the Abdomen and Pelvis was performed with IV contrast. A dose lowering key hnique was utilized adhering to the principles of ALARA. Contrast Volume: Optiray 320, 942 ml. The patient did not receive oral contrast. FINDINGS: Lung base: The lung bases are clear. Abdominal cavity: There is no evidence for abdominal mass, adenopathy or ascites. Liver: There is homogeneous fatty attenuation of the liver parenchyma. There is no evidence for enhan cing mass lesion. Spleen: There is homogeneous attenuation of the splenic parenchyma. There is no enhancing mass lesion . Pancreas: There is homogeneous attenuation of the pancreatic parenchyma. There is no evidence for mas s lesion or peripancreatic fluid collection. Gall Bladder: The gallbladder is distended with no evidence for intraluminal calculi, wall thickening or pericholecystic edema. Adrenal glands: The adrenal glands are normal in size and attenuation. There is no evidence for enhan cing mass lesion. Kidneys: There is homogeneous attenuation of the renal parenchyma bilaterally. There is no evidence f or renal calculus or hydronephrosis. There is no evidence for enhancing mass. Bowel: The bowel loops are normally placed within the abdomen and pelvis without evidence for dilatat ion or obstruction. There is no evidence for mass lesion. There are no inflammatory changes present. There is no evidence for free air. Appendix is not visualized. Bladder: The bladder is within normal limits with no evidence for focal mass, calculus or diverticulu m. : There is no evidence for pelvic mass or adenopathy. There is no evidence for pelvic ascites. Vasculature: There is no evidence for aneurysmal dilatation of the abdominal aorta. Osseous structures: There is no acute osseous pathology. IMPRESSION: 1. No acute intra-abdominal or pelvic abnormality. 2. Distention of the gallbladder. 3. There is again fatty infiltration of the liver. ACT 112: Negative or not required by law. Electronically signed by: Rusty Hanna M.D. 06/07/2021 11:04 PM
--- NOTE | 2021-06-07 23:58 | Emergency Department Note ---
History of Present Illness General Chief complaint: Mental Health Evaluation Stated complaint: MHID Time Seen by Provider: 06/07/21 19:59 Source: EMS History of Present Illness Provider complaint: Mental health evaluation 26-year-old female presents emergency department via EMS for mental health evaluation. Per EMS the patient was suicidal. Per EMS the patient was telling the boyfriend that she wanted her and to stab her in the face and that if he did not do that she would stab herself in the face to . EMS reports that the patient was cooperative until arrival in the emergency department what point she started swearing and becoming belligerent with them as well as staff. Home Medications Medication Instructions Recorded Confirmed Type No Known Home Medications 05/29/20 05/29/20 History folic acid 1 mg tablet 1 mg PO QAM #30 tab 06/01/20 Rx gabapentin 600 mg tablet 600 mg PO Q24H #2 tab 06/01/20 Rx thiamine HCl (vitamin B1) 100 mg 100 mg PO QAM #30 tab 06/01/20 Rx tablet (Vitamin B-1) Allergies Allergy/AdvReac Type Severity Reaction Status Date / Time lamotrigine [From Lamictal] Allergy Mild Rash Verified 05/29/20 01:47 amairani Allergy Mild GUMS SWELL Verified 05/29/20 01:47 mushroom Allergy Mild GUMS SWELL Verified 05/29/20 01:47 ketorolac [From Toradol] AdvReac Mild Irritable Verified 05/29/20 01:47 Past Med/Surg History Medical History (Updated 06/07/21 @ 23:57 by Anupam Duncan) Alcohol abuse Closed fracture of left distal radius Closed fracture of right olecranon process Marijuana use Mood disorder Polysubstance abuse Recurrent pancreatitis Seizure disorder Tobacco use disorder Surgical History History of orthopedic surgery Family History Other No significant family history Social History Smoking Status: Unknown if ever smoked Tobacco Type: Cigarettes Cigarettes Per Day: 20; Second Hand Exposure: No; Hx Alcohol Use: Yes Alcohol type: beer and wine Hx Substance Use: Yes Prescribed Medications: Marijuana Last Used Substance: Just Prior to Arrival Preferred Language: Greenlandic Communication Ability: Effective Visual Impairment: No Limitations Valuer Required: No Beliefs That Will Affect Care: None marital status: Single Current Living Situation: Homeless Current Living Situation Comment: roomate Feels Safe at Home: Yes Assistive Devices: None Review of Systems Unobtainable due to mental health condition Physical Exam Vital Signs Vital Signs - 24 hr 06/07/21 20:45 06/07/21 22:52 06/07/21 23:28 Temperature 37.6 C H Temperature Source Oral Pulse Rate 107 H Pulse Rate [Finger] 109 H 125 H 100 H Respiratory Rate 18 Respiratory Effort / Characteristics Respiratory Depth Respiratory Pattern Blood Pressure 121/84 Blood Pressure [Left Arm] 121/84 87/62 L Blood Pressure Mean 96 Blood Pressure Mean [Left Arm] 96 70 Blood Pressure Position Lying Blood Pressure Position [Left Arm] Lying Right Lateral Pulse Oximetry 91 97 95 Oxygen Delivery Method Room Air Room Air Room Air Sepsis Recent Fever Within 48 Hours No Sepsis New/Unexplained Change in Mental Status N/A Sepsis Action Taken by Nursing No Action Required 06/08/21 00:00 06/08/21 01:00 Temperature Temperature Source Pulse Rate Pulse Rate [Finger] 88 108 H Respiratory Rate 16 18 Respiratory Effort / Characteristics Non-Labored Respiratory Depth Normal Respiratory Pattern Regular Blood Pressure Blood Pressure [Left Arm] 91/64 L 102/79 Blood Pressure Mean Blood Pressure Mean [Left Arm] 73 86 Blood Pressure Position Blood Pressure Position [Left Arm] Right Lateral Lying Pulse Oximetry 98 97 Oxygen Delivery Method Room Air Room Air Sepsis Recent Fever Within 48 Hours Sepsis New/Unexplained Change in Mental Status Sepsis Action Taken by Nursing Physical Exam GENERAL: Patient is lying prone naked and screaming belligerent statements at staff. Patient appears to be on her menstrual cycle. EYES: Conjunctivae and EOM are normal. Pupils are equal, round, and reactive to light. Right eye exhibits no discharge. Left eye exhibits no discharge. No scleral icterus. CV: Tachcardic rate, regular rhythm, normal heart sounds and intact distal pulses. There is no peripheral edema. Palpable radial pulses bue. PULM/CHEST: Lungs clear to auscultation. ABD: The abdomen is soft. MUSC/SKEL: Normal range of motion. NEURO: Motor and sensation grossly intact. PSYCH: Patient is belligerent and suicidal. Course Course 1958: The patient was evaluated in room A8. A complete history and physical exam was performed Patient is belligerent with staff members. Haldol 5 mg IM, Ativan 2 mg, and Benadryl 50 mg IM ordered for the patient. 2355: Imaging shows no acute traumatic injury. Labs are within normal limits with the exception of neutrophil count of 0.66 potassium 3.3 and AST of 188. Serum alcohol level 646. EMR reviewed. Patient has a history of low white blood cell count, low platelets, little neutrophils and these were thought to be due to bone marrow suppression due to her chronic alcohol abuse. Psychiatric case management will evaluate the patient when she is clinically sober. Patient placed in observation at this time. 0130: Vital signs stable. Awaiting patient's sobriety to be evaluated psychiatric housing case manager. Case signed out to Dr. Ayers Administered Medications Discontinued Medications Diphenhydramine HCl (Diphenhydramine 50 Mg/Ml Vial) 50 mg IM NOW STA Stop: 06/07/21 20:08 Last Admin: 06/07/21 20:18 Dose: 50 mg Documented by: [id number] Haloperidol Lactate (Haloperidol Lactate 5 Mg/Ml 1 Ml Vial) 5 mg IM NOW STA Stop: 06/07/21 20:08 Last Admin: 06/07/21 20:18 Dose: 5 mg Documented by: [id number] Sodium Chloride (Nss 1000ml) 1,000 mls @ 999 mls/hr IV .Q1H1M CHUN Stop: 06/07/21 21:00 Last Infusion: 06/07/21 22:51 Dose: 0 mls/hr Documented by: [id number] Admin: 06/07/21 21:27 Dose: 999 mls/hr Documented by: [id number] Lorazepam (Ativan) 2 mg in 4 mls @ 4 mls/min IV NOW STA Stop: 06/07/21 20:00 Last Admin: 06/07/21 21:44 Dose: 4 mls/min Documented by: [id number] Multivitamins 10 ml/ Thiamine HCl 100 mg/ Folic Acid 1 mg/Sodium Chloride 1,011.2 mls @ 1,011.2 mls/hr IV .Q1H ONE Stop: 06/07/21 23:22 Last Infusion: 06/08/21 01:24 Dose: 0 mls/hr Documented by: [id number] Admin: 06/07/21 23:13 Dose: 1,011.2 mls/hr Documented by: [id number] Ioversol (Optiray 320 100ml) 94 ml IV ONCE ONE Stop: 06/07/21 22:41 Last Admin: 06/07/21 22:41 Dose: 94 ml Documented by: [id number] Medical Decision Making Laboratory Data Result diagrams: 06/07/21 20:24 06/07/21 20:35 Lab Results 06/07/21 06/07/21 06/07/21 Range/Units 20:24 20:24 20:24 WBC 3.76 L (4.8-10.8) K/uL RBC 3.93 L (4.2-5.4) M/uL Hgb 13.0 (12.0-16.0) g/dL Hct 39.1 (37-47) % MCV 99.5 (80-100) fL MCH 33.1 (25-34) pg MCHC 33.2 (32-36) g/dL RDW Std Deviation 61.6 H (36.4-46.3) fL RDW Coeff of Nayana 16.9 H (11.5-14.5) % Plt Count 89 L (130-400) K/uL MPV 9.5 (7.4-10.4) fL Immature Gran % (Auto) 0.5 % Neut % (Auto) 17.6 % Lymph % (Auto) 60.1 % [place] % (Auto) 19.1 % Eos % (Auto) 1.1 % Baso % (Auto) 1.6 % Neut # (Auto) 0.66 L* (1.4-6.5) K/uL Lymph # (Auto) 2.26 (1.2-3.4) K/uL [place] # (Auto) 0.72 H (0.11-0.59) K/uL Eos # (Auto) 0.04 (0-0.5) K/uL Baso # (Auto) 0.06 (0-0.2) K/uL Immature Gran # (Auto) 0.02 (0.00-0.02) K/uL Polychromasia 1+ Sodium (136-145) mmol/L Potassium (3.5-5.1) mmol/L Chloride (98-107) mmol/L Carbon Dioxide Anion Gap BUN (6-23) mg/dl Creatinine (0.6-1.2) mg/dl Est Cr Clr Drug Dosing Est GFR ( Amer) ml/min Est GFR (Non-Af Amer) ml/min BUN/Creatinine Ratio (10-20) Glucose (70-99(Fasting)) mg/dl Calcium (8.5-10.1) mg/dl Total Bilirubin (0.2-1.0) mg/dl Direct Bilirubin (0-0.2) mg/dl AST (13-39) U/L ALT (7-52) U/L Alkaline Phosphatase (34-104) U/L Total Protein (6.0-8.3) gm/dl Albumin (3.4-5.0) gm/dl Lipase (11-82) U/L TSH 1.560 (0.300-4.500) uIu/ml HCG, Quant mIU/ml Salicylates < 3.0 L (3.0-30) mg/dl Acetaminophen < 3 L (10-30) ug/ml Ethyl Alcohol mg/dL (<10.0) mg/dl SARS-CoV-2, RNA, NAAT (NEGATIVE) 06/07/21 06/07/21 06/07/21 Range/Units 20:24 20:24 20:24 WBC (4.8-10.8) K/uL RBC (4.2-5.4) M/uL Hgb (12.0-16.0) g/dL Hct (37-47) % MCV (80-100) fL MCH (25-34) pg MCHC (32-36) g/dL RDW Std Deviation (36.4-46.3) fL RDW Coeff of Nayana (11.5-14.5) % Plt Count (130-400) K/uL MPV (7.4-10.4) fL Immature Gran % (Auto) % Neut % (Auto) % Lymph % (Auto) % [place] % (Auto) % Eos % (Auto) % Baso % (Auto) % Neut # (Auto) (1.4-6.5) K/uL Lymph # (Auto) (1.2-3.4) K/uL [place] # (Auto) (0.11-0.59) K/uL Eos # (Auto) (0-0.5) K/uL Baso # (Auto) (0-0.2) K/uL Immature Gran # (Auto) (0.00-0.02) K/uL Polychromasia Sodium (136-145) mmol/L Potassium (3.5-5.1) mmol/L Chloride (98-107) mmol/L Carbon Dioxide Anion Gap BUN (6-23) mg/dl Creatinine (0.6-1.2) mg/dl Est Cr Clr Drug Dosing Est GFR ( Amer) ml/min Est GFR (Non-Af Amer) ml/min BUN/Creatinine Ratio (10-20) Glucose (70-99(Fasting)) mg/dl Calcium (8.5-10.1) mg/dl Total Bilirubin 0.5 (0.2-1.0) mg/dl Direct Bilirubin 0.1 (0-0.2) mg/dl AST 188 H (13-39) U/L ALT 49 (7-52) U/L Alkaline Phosphatase 65 (34-104) U/L Total Protein 7.5 (6.0-8.3) gm/dl Albumin 4.2 (3.4-5.0) gm/dl Lipase 69 (11-82) U/L TSH (0.300-4.500) uIu/ml HCG, Quant < 1 mIU/ml Salicylates (3.0-30) mg/dl Acetaminophen (10-30) ug/ml Ethyl Alcohol mg/dL 646.3 H (<10.0) mg/dl SARS-CoV-2, RNA, NAAT (NEGATIVE) 06/07/21 06/07/21 Range/Units 20:35 21:00 WBC (4.8-10.8) K/uL RBC (4.2-5.4) M/uL Hgb (12.0-16.0) g/dL Hct (37-47) % MCV (80-100) fL MCH (25-34) pg MCHC (32-36) g/dL RDW Std Deviation (36.4-46.3) fL RDW Coeff of Nayana (11.5-14.5) % Plt Count (130-400) K/uL MPV (7.4-10.4) fL Immature Gran % (Auto) % Neut % (Auto) % Lymph % (Auto) % [place] % (Auto) % Eos % (Auto) % Baso % (Auto) % Neut # (Auto) (1.4-6.5) K/uL Lymph # (Auto) (1.2-3.4) K/uL [place] # (Auto) (0.11-0.59) K/uL Eos # (Auto) (0-0.5) K/uL Baso # (Auto) (0-0.2) K/uL Immature Gran # (Auto) (0.00-0.02) K/uL Polychromasia Sodium 137 (136-145) mmol/L Potassium 3.3 L (3.5-5.1) mmol/L Chloride 99 (98-107) mmol/L Carbon Dioxide TNP Anion Gap TNP BUN 7 (6-23) mg/dl Creatinine 0.62 (0.6-1.2) mg/dl Est Cr Clr Drug Dosing Not Reportable Est GFR ( Amer) 142.2 ml/min Est GFR (Non-Af Amer) 122.7 ml/min BUN/Creatinine Ratio 11.3 (10-20) Glucose 157 H (70-99(Fasting)) mg/dl Calcium 8.5 (8.5-10.1) mg/dl Total Bilirubin (0.2-1.0) mg/dl Direct Bilirubin (0-0.2) mg/dl AST (13-39) U/L ALT (7-52) U/L Alkaline Phosphatase (34-104) U/L Total Protein (6.0-8.3) gm/dl Albumin (3.4-5.0) gm/dl Lipase (11-82) U/L TSH (0.300-4.500) uIu/ml HCG, Quant mIU/ml Salicylates (3.0-30) mg/dl Acetaminophen (10-30) ug/ml Ethyl Alcohol mg/dL (<10.0) mg/dl SARS-CoV-2, RNA, NAAT NEGATIVE (NEGATIVE) Imaging Data Radiologist's Impression: Abdomen/Pelvis CT 06/07/21 20:09 CT abd pelvis IV con only CLINICAL HISTORY: Abdominal pain. Evaluate for recurrent pancreatitis COMPARISON STUDY: 05/29/2020 CT DOSE: TECHNIQUE: Standard CT of the Abdomen and Pelvis was performed with IV contrast. A dose lowering technique was utilized adhering to the principles of ALARA. Contrast Volume: Optiray 320, 942 ml. The patient did not receive oral contrast. FINDINGS: Lung base: The lung bases are clear. Abdominal cavity: There is no evidence for abdominal mass, adenopathy or ascites. Liver: There is homogeneous fatty attenuation of the liver parenchyma. There is no evidence for enhancing mass lesion. Spleen: There is homogeneous attenuation of the splenic parenchyma. There is no enhancing mass lesion. Pancreas: There is homogeneous attenuation of the pancreatic parenchyma. There is no evidence for mass lesion or peripancreatic fluid collection. Gall Bladder: The gallbladder is distended with no evidence for intraluminal calculi, wall thickening or pericholecystic edema. Adrenal glands: The adrenal glands are normal in size and attenuation. There is no evidence for enhancing mass lesion. Kidneys: There is homogeneous attenuation of the renal parenchyma bilaterally. There is no evidence for renal calculus or hydronephrosis. There is no evidence for enhancing mass. Bowel: The bowel loops are normally placed within the abdomen and pelvis without evidence for dilatation or obstruction. There is no evidence for mass lesion. There are no inflammatory changes present. There is no evidence for free air. Appendix is not visualized. Bladder: The bladder is within normal limits with no evidence for focal mass, calculus or diverticulum. : There is no evidence for pelvic mass or adenopathy. There is no evidence for pelvic ascites. Vasculature: There is no evidence for aneurysmal dilatation of the abdominal aorta. Osseous structures: There is no acute osseous pathology. IMPRESSION: 1. No acute intra-abdominal or pelvic abnormality. 2. Distention of the gallbladder. 3. There is again fatty infiltration of the liver. ACT 112: Negative or not required by law. Electronically signed by: Rusty Hanna M.D. 06/07/2021 11:[address] 06/07/21 20:10 CT cervical spine wo con CLINICAL HISTORY: etoh fall . Neck pain COMPARISON STUDY: 09/16/2019 CT DOSE: 2156.38 mGy.cm TECHNIQUE: Standard CT of the Cervical Spine was performed without IV contrast. A dose lowering technique was utilized adhering to the principles of ALARA. FINDINGS: Bones: There is no evidence for an acute fracture or malalignment. The heights of the vertebral bodies are maintained. The vertebral bodies are in anatomic alignment. The appearance of the tip of the odontoid is unchanged. The odontoid is intact and the atlantoaxial articulation is within normal limits. Disc spaces:The disc space heights are maintained. Apophyseal joints:The apophyseal joints are intact bilaterally. Soft tissues:The prevertebral soft tissues are within normal limits. IMPRESSION: Negative CT of the cervical spine. ACT 112: Negative or not required by law. Electronically signed by: Rusty Hanna M.D. 06/07/2021 10:[address] 06/07/21 20:10 CT head/brain wo con CLINICAL HISTORY: etoh fall . Pain COMPARISON STUDY: 03/02/2020 CT DOSE: TECHNIQUE: Standard CT of the Brain was performed without IV contrast. A dose lowering technique was utilized adhering to the principles of ALARA. FINDINGS: Extraaxial space: There is no evidence for subdural hematoma. There are no extra-axial fluid collections. Ventricles and cisterns: The ventricles are normal in size and configuration. There is no evidence for midline shift or mass effect. Parenchyma: There is no subarachnoid or intraparenchymal hemorrhage. There is no evidence for an acute infarct or cerebral edema. There is homogeneous attenua tion of the brain parenchyma. There are no gross mass lesions. Osseous structures: There is no evidence for an acute fracture. The visualized paranasal sinuses are clear. The mastoid air cells are clear bilaterally. Soft tissues: There is no evidence for focal soft tissue swelling. IMPRESSION: No acute intracerebral pathology. ACT 112: Negative or not required by law. Electronically signed by: Rusty aHnna M.D. 06/07/2021 10:52 PM MDM Narrative Observation note Indication: Psych eval/placement Patient, with alcohol abuse, polysubstance abuse, bipolar, mood disorder, suicidal ideation first seen at 1959 hrs and the observation time began at 2355 hrs and was necessary in order to have psych evaluation completed . Impression & Plan Alcohol abuse, Suicidal ideation Discharge Plan Visit Data Chief Complaint: Mental Health Evaluation Stated Complaint: MHID ED Provider: Anupam Duncan Discharge Problem: Alcohol abuse, Suicidal ideation Patient Disposition: Still a Patient Forms Stand Alone Forms: [facility], Suicide Prevention Resources Prescriptions Prescriptions: No Action No Known Home Medications RF: 0 gabapentin 600 mg Tablet 600 mg PO Q24H Qty: 2 RF: 0 folic acid 1 mg Tablet 1 mg PO QAM Qty: 30 RF: 0 thiamine HCl (vitamin B1) [Vitamin B-1] 100 mg Tablet 100 mg PO QAM Qty: 30 RF: 0 Referrals Referrals: Doberstein,William F., MD [Primary Care Provider] -
[2021-06-08 04:16] LABS: Appearance Urine Clear (Clear); Bacteria Urine Automated Negative (Negative); Bilirubin Urine Negative (Negative); Blood Urine 3+ (Negative); Color Urine Red; Epithelial Cell Urine Auto >30 /lpf (0-5); Glucose Urine UA Negative (Negative); Ketones Urine Negative (Negative); Leukocyte Esterase Urine 1+ (Negative); Nitrite Urine Negative (Negative); Protein Urine 3+ (Negative); RBC Urine Automated >30 /hpf (0-4); Specific Gravity Urine > 1.045 (1.000-1.030); Urobilinogen Urine Negative (Negative)
[2021-06-08 04:29] LABS: Cast Urine Automated 0 /lpf (0-5)
[2021-06-08 04:42] LABS: Amphetamines+Metham, Urine Neg (Neg); Barbiturates, Urine Neg (Neg); Benzodiazepine, Urine Neg (Neg); Cocaine, Urine Neg (Neg); MDMA (Ecstacy), Urine Neg (Neg); Methadone, Urine Neg (Neg); Opiate, Urine Neg (Neg); Phencyclidine, Urine Neg (Neg)
--- NOTE | 2021-06-08 04:58 | Emergency Department Note ---
ED Visit Note This case was signed out to me at change of shift awaiting sobriety. The patient has been asleep throughout the mold shifter. She has a significantly elevated alcohol level and will spend most of the day in the emergency department today sobering up so that she can be evaluated by the ED psychiatric porter sample case. The case will be signed out to Dr. Woody at change of shift awaiting psychiatric evaluation. .
--- NOTE | 2021-06-08 06:54 | Emergency Department Note ---
ED Visit Note ED Physician Sign Out Note: 26-year-old heavily intoxicated female arrived last night after making suicidal comments to boyfriend. There was no report of actual attempt to harm self. Signed out to me pending sobering and further evaluation. Patient evaluated and actively having shacking and tremors though no overt seizure like activity. History of withdrawal from alcohol. She appears to be entering DTs. She was ordered 1L further IV fluids along with 2 mg IV ativan. As not medically clear for psych eval until 4pm, she will need to be hospitalized prior to psych evaluation. Hospitalist consulted for further management. Gómez Woody MD
[2021-06-08] MEDS ORDERED: SODIUM CHLORIDE 0.9% 1000ML 1,000 ML IV ONE (06:59)
[2021-06-08] MEDS ORDERED: LORazepam 2 MG/4 ML VIAL IV STA (06:59)
[2021-06-08] MEDS ORDERED: GABAPENTIN 1200MG ALCOHOL WITHDRAWAL LOAD PO STA (07:50)
[2021-06-08] MEDS ORDERED: GABAPENTIN 600 MG TAB PO ONE (07:52)
[2021-06-08] MEDS ORDERED: CEFEPIME 2,000 MG/20 ML VIAL IV STA (08:08)
[2021-06-08] MEDS ORDERED: SODIUM CHLORIDE 0.9% 1000ML 1,000 ML IV STA (08:09)
[2021-06-08] MEDS ORDERED: POTASSIUM CHLORIDE CRTAB 20 MEQ TABCR PO STA (08:10)
[2021-06-08] MEDS ORDERED: CONSULT PHARMACY STA (08:13)
[2021-06-08 08:48] LABS: Hematocrit (blood only) 34.4 % (37-47); Hemoglobin 11.3 g/dL (12.0-16.0); Mean Corpuscular Hemoglobin 32.8 pg (25-34); Mean Corpuscular Hgb Conc 32.8 g/dL (32-36); RDW Coefficient of Variation 17.3 % (11.5-14.5); RDW Standard Deviation 63.1 fL (36.4-46.3); Red Blood Count 3.44 M/uL (4.2-5.4); White Blood Count 4.18 K/uL (4.8-10.8)
[2021-06-08 09:00] LABS: Basophils # (auto) 0.02 K/uL (0-0.2); Basophils % (auto) 0.5 %; Eosinophils # (auto) 0.05 K/uL (0-0.5); Eosinophils % (auto) 1.2 %; Immature Granulocytes # (auto) 0.01 K/uL (0.00-0.02); Immature Granulocytes % (auto) 0.2 %; Lymphocytes % (auto) 38.3 %; Monocytes % (auto) 14.4 %; Neutrophils % (auto) 45.4 %; Platelet Count 67 K/uL (130-400)
--- NOTE | 2021-06-08 09:07 | XRay Report ---
XR chest 1V portable HISTORY: 26 years-old Female neutropenic acute neutropenia in a patient with history of tobacco abus e COMPARISON: Chest radiograph May 29, 2020 TECHNIQUE: Portable AP view of the chest FINDINGS: Unchanged calcified granuloma of the right upper lobe. The cardiomediastinal and hilar silhouettes ar e within normal limits. There is no pneumothorax, pleural effusion, airspace consolidation or overt p ulmonary edema. Degenerative changes of the shoulders and spine. IMPRESSION: No acute process. ACT 112: Negative or not required by law. The above report was generated using voice recognition software. It may contain grammatical, syntax o r spelling errors. Electronically signed by: Adrian Abraham M.D. 06/08/2021 9:06 AM
[2021-06-08 09:10] LABS: Alanine Aminotransferase 39 U/L (7-52); Albumin Globulin Ratio 1.3 (0.9-2); Albumin Level 3.4 gm/dl (3.4-5.0); Alkaline Phosphatase 51 U/L (34-104); Anion Gap 11 (3-11); Aspartate Aminotransferase 137 U/L (13-39); BUN Creatinine Ratio 8.7 (10-20); Bilirubin,Total 0.4 mg/dl (0.2-1.0); Blood Urea Nitrogen 4 mg/dl (6-23); Carbon Dioxide 22 mmol/L (21-32); Chloride 108 mmol/L (98-107); Creatinine Clr Calc Pharmacy 163.8 ml/min; Est GFR (African American) > 150.0 ml/min; Est GFR (Non-African American) 135.4 ml/min; Globulin 2.7 gm/dl (2.5-4.0); Glucose 74 mg/dl (70-99(Fasting)); Lipase 43 U/L (11-82); Magnesium 1.5 mg/dl (1.7-2.4); Potassium 3.4 mmol/L (3.5-5.1); Sodium 141 mmol/L (136-145); Total Protein 6.1 gm/dl (6.0-8.3)
--- NOTE | 2021-06-08 09:47 | History & Physical Report ---
Date of Service June 08, 2021 Assessment & Plan (1) Alcohol withdrawal: (2) Suicidal ideation: (3) Abdominal pain: (4) Alcohol intoxication: (5) Hypokalemia: (6) Hypomagnesemia: Plan: This is a 26-year-old female who has significant past medical history of alcohol abuse, chronic thrombocytopenia, pancytopenia, major depressive disorder, history of recurrent alcoholic pancreatitis, history of drug abuse who presented to ED via EMS for mental health evaluation. Alcohol Intoxication Alcohol withdrawal Patient drinks a handle of vodka daily, will need alcohol cessation education when more sober and alert History of withdrawal seizure Admit to PCU AWSS Protocol with gabapentin taper and IV Ativan IV folic acid and thiamine Received banana bag in ED Continue IV fluids Suicidal Ideation Patient with reported suicidal ideation per boyfriend Consult psych, will need inpatient psych evaluation once medically stable History of depression, but currently not taking any medication Abdominal Pain History of recurrent alcoholic pancreatitis Patient reports abdominal pain, abdomen is soft but tender Lipase WNL, CT a/p w/o evidence of acute pancreatitis Trend lipase Keep n.p.o. IVF LR 150/hr Hypokalemia Hypomagnesemia replete follow SIRS Pancytopenia with neutropenia Upon my evaluation patient met SIRS criteria secondary to tachycardia, neutropenia and hypotension, ANC 0.66, repeat WNL ( previously had been abnormal) No clear source of infection, may be in setting of alcohol withdrawal Given neutropenia we will treat with IV cefepime, obtain blood cultures Await culture results prior to discontinuing antibiotics pt will need OP hematology evaluation PCP: Harpreet FULL CODE Dispo: PCU, when medically stable to psych Pt was seen and examined in collaboration with Dr. Saleem, please see addendum The chart was completed utilizing [employer] Speech voice recognition software. Grammatical errors, random word insertions, pronoun errors, and incomplete sentences are an occasional consequence of this system due to software limitations, ambient noise, and hardware issues. Any formal questions or concerns about the content, text, or information contained within the body of this dictation should be directly addressed to the provider for clarification. History of Present Illness Chief Complaint: Brought to ED by boyfriend 2/2 to suicidal ideations. Primary Care Provider: William Mullins MD This is a 26-year-old female who has significant past medical history of alcohol abuse, chronic thrombocytopenia, pancytopenia, major depressive disorder, history of recurrent alcoholic pancreatitis, history of drug abuse who presented to ED via EMS for mental health evaluation. Per EMS and ER provider patient was telling boyfriend that she wanted to . Her intent was to stab her self in the face. Upon arrival to ED patient she was cooperative, but then was swearing, becoming belligerent with EMS and staff. She did receive IM haloperidol. In ED patient was found to have significant elevation in alcohol level over 600. Initially plan was for patient to sober up in ED and then be admitted to psych. 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 She did receive IV banana bag and Ativan. Upon my evaluation patient states, "I do not feel well." She also complains of nausea and generalized abdominal pain. She reports 7 p rior episodes of pancreatitis. She denies any fever, chills, sweats, lightheadedness, dizziness, chest pain, shortness of breath, nausea, vomiting, dysuria, melena, hematochezia. Her last alcoholic drink was prior to arrival. She states she drinks a handle of vodka a day. She does have history of prior withdrawal as well as 1 episode of withdrawal seizure. Upon my evaluation patient was slightly hemodynamically stable with hypotension, tachycardia and mild elevation in temperature at 37.7. She was also found to be neutropenic. She was hypokalemic, hypomagnesemic and a mild elevation in AST at 137. Her lipase was unremarkable. Urinalysis was negative for infection. Her urine tox was positive for marijuana. Her alcohol level was 646.3. Allergies Allergy/AdvReac Type Severity Reaction Status Date / Time lamotrigine [From Lamictal] Allergy Mild Rash Verified 05/29/20 01:47 amairani Allergy Mild GUMS SWELL Verified 05/29/20 01:47 mushroom Allergy Mild GUMS SWELL Verified 05/29/20 01:47 ketorolac [From Toradol] AdvReac Mild Irritable Verified 05/29/20 01:47 Home Medications Medication Instructions Recorded Confirmed Type No Known Home Medications 05/29/20 06/08/21 History Past Med/Surg History Medical History Alcohol abuse Closed fracture of left distal radius Closed fracture of right olecranon process Marijuana use Mood disorder Polysubstance abuse Recurrent pancreatitis Seizure disorder Tobacco use disorder Surgical History History of D&C x 3 History of orthopedic surgery Family History Other No significant family history Social History Smoking Status: Current some day smoker Tobacco Type: Cigarettes Cigarettes Per Day: 20; Second Hand Exposure: No; Do You Dip or Chew Tobacco: No; Hx Alcohol Use: Yes Alcohol type: beer, wine and hard liquor Alcohol type Comment: handle of vodka a day Hx Substance Use: Yes Prescribed Medications: Marijuana Last Used Substance: Just Prior to Arrival Preferred Language: Thai Communication Ability: Effective Visual Impairment: No Limitations Tripe Finisher Required: No Beliefs That Will Affect Care: None marital status: Single Current Living Situation Comment: roomate Feels Safe at Home: Yes Assistive Devices: None Review of Systems Review of Systems: All systems reviewed & are unremarkable except as noted in HPI & below Physical Exam Physical Exam: Constitutional: WD/WN, appears acutely ill, vitals as above, NAD, sitting up in bed, pleasant, conversing easily Head: Normocephalic, Atraumatic Eyes: PERRL, conjunctivae normal, anicteric sclerae ENMT: external ear and nose normal, oropharynx normal Neck: trachea midline, no thyromegaly normal visual inspection Respiratory: normal respiratory effort, lungs clear to auscultation, no wheeze, rales, rhonchi. Normal insp/exp effort, no accessory muscle use Cardiovascular: Tachycardic rate, regular rhythm, no murmur, no edema Vessels: no JVD or carotid bruit Chest: normal inspection of chest Abdomen: normal bowel sounds, soft, tender to palpation, not rigid, no guarding,, no hepatosplenomegaly Musculoskeletal: no cyanosis or clubbing, extremities motor strength 5/5 Skin: no rashes, warm and dry normal turgor Neurologic: PERRL, EOMI, accommodation nl, no face palsy, no dysarthria CN's II-XI intact bilaterally and moves all extremities Psychiatric: A+Ox3, euthymic affect Lymphatic: no cervical or axillary lymphadenopathy : deferred Results & Data Results & Data ([facility]) Vital Signs (Past 12 Hours) Vital Signs Temp Pulse Pulse Resp BP BP Pulse Ox 06/08/21 08:00 111 H 25 H 87/47 L 94 06/08/21 07:30 107/72 96 06/08/21 07:29 96 06/08/21 07:00 36.9 C 115 H 16 107/72 95 06/08/21 05:15 95 H 16 97/51 L 95 06/08/21 05:00 94 06/08/21 04:30 95 06/08/21 04:00 95 06/08/21 03:30 102 H 6 L 95 06/08/21 03:00 100 H 126 H 24 110/76 95 06/08/21 02:30 98 H 21 95 06/08/21 02:00 101 H 27 H 95 06/08/21 01:30 99 H 27 H 96 06/08/21 01:00 115 H 108 H 19 102/79 98 06/08/21 00:30 91 H 20 97 06/08/21 00:00 93 H 88 21 91/64 L 96 06/07/21 23:30 98 H 22 96 06/07/21 23:28 100 H 18 87/62 L 95 06/07/21 23:00 103 H 24 92 06/07/21 22:52 125 H 97 06/07/21 22:43 30 H 95 06/07/21 22:00 105 H 27 H 91 06/07/21 21:30 120 H 18 93 06/07/21 21:00 110 H 28 H 91 06/07/21 20:48 108 H 33 H 06/07/21 20:45 37.6 C H 107 H 109 H 121/84 121/84 91 Diagnostic Findings Abdomen/Pelvis CT 06/07/21 20:09 CT abd pelvis IV con only CLINICAL HISTORY: Abdominal pain. Evaluate for recurrent pancreatitis COMPARISON STUDY: 05/29/2020 CT DOSE: TECHNIQUE: Standard CT of the Abdomen and Pelvis was performed with IV contrast. A dose lowering technique was utilized adhering to the principles of ALARA. Contrast Volume: Optiray 320, 942 ml. The patient did not receive oral contrast. FINDINGS: Lung base: The lung bases are clear. Abdominal cavity: There is no evidence for abdominal mass, adenopathy or ascites. Liver: There is homogeneous fatty attenuation of the liver parenchyma. There is no evidence for enhancing mass lesion. Spleen: There is homogeneous attenuation of the splenic parenchyma. There is no enhancing mass lesion. Pancreas: There is homogeneous attenuation of the pancreatic parenchyma. There is no evidence for mass lesion or peripancreatic fluid collection. Gall Bladder: The gallbladder is distended with no evidence for intraluminal calculi, wall thickening or pericholecystic edema. Adrenal glands: The adrenal glands are normal in size and attenuation. There is no evidence for enhancing mass lesion. Kidneys: There is homogeneous attenuation of the renal parenchyma bilaterally. There is no evidence for renal calculus or hydronephrosis. There is no evidence for enhancing mass. Bowel: The bowel loops are normally placed within the abdomen and pelvis without evidence for dilatation or obstruction. There is no evidence for mass lesion. There are no inflammatory changes present. There is no evidence for free air. Appendix is not visualized. Bladder: The bladder is within normal limits with no evidence for focal mass, calculus or diverticulum. : There is no evidence for pelvic mass or adenopathy. There is no evidence for pelvic ascites. Vasculature: There is no evidence for aneurysmal dilatation of the abdominal aorta. Osseous structures: There is no acute osseous pathology. IMPRESSION: 1. No acute intra-abdominal or pelvic abnormality. 2. Distention of the gallbladder. 3. There is again fatty infiltration of the liver. ACT 112: Negative or not required by law. Electronically signed by: Rusty Hanna M.D. 06/07/2021 11:[address] 06/07/21 20:10 CT cervical spine wo con CLINICAL HISTORY: etoh fall . Neck pain COMPARISON STUDY: 09/16/2019 CT DOSE: 2156.38 mGy.cm TECHNIQUE: Standard CT of the Cervical Spine was performed without IV contrast. A dose lowering technique was utilized adhering to the principles of ALARA. FINDINGS: Bones: There is no evidence for an acute fracture or malalignment. The heights of the vertebral bodies are maintained. The vertebral bodies are in anatomic alignment. The appearance of the tip of the odontoid is unchanged. The odontoid is intact and the atlantoaxial articulation is within normal limits. Disc spaces:The disc space heights are maintained. Apophyseal joints:The apophyseal joints are intact bilaterally. Soft tissues:The prevertebral soft tissues are within normal limits. IMPRESSION: Negative CT of the cervical spine. ACT 112: Negative or not required by law. Electronically signed by: Rusty Hanna M.D. 06/07/2021 10:[address] 06/07/21 20:10 CT head/brain wo con CLINICAL HISTORY: etoh fall . Pain COMPARISON STUDY: 03/02/2020 CT DOSE: TECHNIQUE: Standard CT of the Brain was performed without IV contrast. A dose lowering technique was utilized adhering to the principles of ALARA. FINDINGS: Extraaxial space: There is no evidence for subdural hematoma. There are no extra-axial fluid collections. Ventricles and cisterns: The ventricles are normal in size and configuration. There is no evidence for midline shift or mass effect. Parenchyma: There is no subarachnoid or intraparenchymal hemorrhage. There is no evidence for an acute infarct or cerebral edema. There is homogeneous attenuation of the brain parenchyma. There are no gross mass lesions. Osseous structures: There is no evidence for an acute fracture. The visualized paranasal sinuses are clear. The mastoid air cells are clear bilaterally. Soft tissues: There is no evidence for focal soft tissue swelling. IMPRESSION: No acute intracerebral pathology. ACT 112: Negative or not required by law. Electronically signed by: Rusty Hanna M.D. 06/07/2021 10:52 PM Chest X-Ray 06/08/21 08:08 XR chest 1V portable HISTORY: 26 years-old Female neutropenic acute neutropenia in a patient with history of tobacco abuse COMPARISON: Chest radiograph May 29, 2020 TECHNIQUE: Portable AP view of the chest FINDINGS: Unchanged calcified granuloma of the right upper lobe. The cardiomediastinal and hilar silhouettes are within normal limits. There is no pneumothorax, pleural effusion, airspace consolidation or overt pulmonary edema. Degenerative changes of the shoulders and spine. IMPRESSION: No acute process. ACT 112: Negative or not required by law. The above report was generated using voice recognition software. It may contain grammatical, syntax or spelling errors. Electronically signed by: Adrian Abraham M.D. 06/08/2021 9:06 AM Medications Administered Medication List Discontinued Medications Diphenhydramine HCl (Diphenhydramine 50 Mg/Ml Vial) 50 mg IM NOW STA Stop: 06/07/21 20:08 Last Admin: 06/07/21 20:18 Dose: 50 mg Documented by: [id number] Gabapentin (Gabapentin 600 Mg Tab) 1,200 mg PO NOW ONE Stop: 06/08/21 07:53 Last Admin: 06/08/21 08:35 Dose: 1,200 mg Documented by: [id number] Haloperidol Lactate (Haloperidol Lactate 5 Mg/Ml 1 Ml Vial) 5 mg IM NOW STA Stop: 06/07/21 20:08 Last Admin: 06/07/21 20:18 Dose: 5 mg Documented by: [id number] Sodium Chloride (Nss 1000ml) 1,000 mls @ 999 mls/hr IV .Q1H1M CHUN Stop: 06/07/21 21:00 Last Infusion: 06/07/21 22:51 Dose: 0 mls/hr Documented by: [id number] Admin: 06/07/21 21:27 Dose: 999 mls/hr Documented by: [id number] Lorazepam (Ativan) 2 mg in 4 mls @ 4 mls/min IV NOW STA Stop: 06/07/21 20:00 Last Admin: 06/07/21 21:44 Dose: 4 mls/min Documented by: [id number] Multivitamins 10 ml/ Thiamine HCl 100 mg/ Folic Acid 1 mg/Sodium Chloride 1,011.2 mls @ 1,011.2 mls/hr IV .Q1H ONE Stop: 06/07/21 23:22 Last Infusion: 06/08/21 01:24 Dose: 0 mls/hr Documented by: [id number] Admin: 06/07/21 23:13 Dose: 1,011.2 mls/hr Documented by: [id number] Lorazepam (Ativan) 2 mg in 4 mls @ 4 mls/min IV NOW STA Stop: 06/08/21 07:00 Last Admin: 06/08/21 07:22 Dose: 4 mls/min Documented by: [id number] Sodium Chloride (Nss 1000ml) 1,000 mls @ 999 mls/hr IV .Q1H1M ONE Stop: 06/08/21 07:59 Last Admin: 06/08/21 07:23 Dose: 999 mls/hr Documented by: [id number] Cefepime HCl (Maxipime) 2,000 mg in 20 mls @ 5 mls/min IV NOW STA; Protocol Stop: 06/08/21 08:11 Last Admin: 06/08/21 08:34 Dose: 5 mls/min Documented by: [id number] Ioversol (Optiray 320 100ml) 94 ml IV ONCE ONE Stop: 06/07/21 22:41 Last Admin: 06/07/21 22:41 Dose: 94 ml Documented by: [id number] Potassium Chloride (Potassium Chloride Crtab 20 Meq Tabcr) 40 meq PO NOW STA Stop: 06/08/21 08:11 Last Admin: 06/08/21 08:39 Dose: 40 meq Documented by: [id number] COVID-19 Results Results COVID-19 Adm Lab Results: RBC 3.44 M/uL (4.2-5.4) L 06/08/21 WBC 4.18 K/uL (4.8-10.8) L 06/08/21 Hgb 11.3 g/dL (12.0-16.0) L 06/08/21 Hct 34.4 % (37-47) L 06/08/21 Plt Count 67 K/uL (130-400) L 06/08/21 Neutrophils (%) (Auto) 45.4 % 06/08/21 Lymphocytes (%) (Auto) 38.3 % 06/08/21 Monocytes # (Auto) 0.60 K/uL (0.11-0.59) H 06/08/21 Eosinophils # (Auto) 0.05 K/uL (0-0.5) 06/08/21 Immature Granulocyte % (Auto) 0.2 % 06/08/21 Neutrophils # (Auto) 1.90 K/uL (1.4-6.5) 06/08/21 Lymphocytes # (Auto) 1.60 K/uL (1.2-3.4) 06/08/21 Monocytes # (Auto) 0.60 K/uL (0.11-0.59) H 06/08/21 Eosinophils # (Auto) 0.05 K/uL (0-0.5) 06/08/21 Basophils # (Auto) 0.02 K/uL (0-0.2) 06/08/21 Immature Granulocyte # (Auto) 0.01 K/uL (0.00-0.02) 06/08/21 Polychromasia 1+ 06/07/21 Na 141 mmol/L (136-145) 06/08/21 K 3.4 mmol/L (3.5-5.1) L 06/08/21 Cl 108 mmol/L (98-107) H 06/08/21 CO2 22 mmol/L (21-32) 06/08/21 Anion Gap 11 (3-11) 06/08/21 BUN 4 mg/dl (6-23) L 06/08/21 Creatinine 0.46 mg/dl (0.6-1.2) L 06/08/21 BUN/Creatinine Ratio 8.7 (10-20) L 06/08/21 Glucose Level 74 mg/dl (70-99(Fasting)) 06/08/21 Ca 7.0 mg/dl (8.5-10.1) L 06/08/21 Total Bilirubin 0.4 mg/dl (0.2-1.0) 06/08/21 Direct Bilirubin 0.1 mg/dl (0-0.2) 06/07/21 AST/SGOT 137 U/L (13-39) H 06/08/21 ALT/SGPT 39 U/L (7-52) 06/08/21 Alkaline Phosphatase 51 U/L (34-104) 06/08/21 Total Protein 6.1 gm/dl (6.0-8.3) 06/08/21 Albumin 3.4 gm/dl (3.4-5.0) 06/08/21 Globulin 2.7 gm/dl (2.5-4.0) 06/08/21 Albumin/Globulin Ratio 1.3 (0.9-2) 06/08/21 SARS-CoV-2, RNA, NAAT NEGATIVE (NEGATIVE) 06/07/21 Chest X-Ray 06/08/21 Code Status & VTE Plan Code Status FULL CODE VTE Prophylaxis Plan VTE Prophylaxis will be ordered: Yes Supervising Physician Co-Signing Physician Notes I saw this patient with the physician payroll human resources assistant, I participated in the history, physical, review of systems, and physical exam. I reviewed the medications with the patient and the physician payroll human resources assistant and helped reconcile the medications. I helped take a detailed family and social history as well. I formulated the assessment and plan personally with the physician payroll human resources assistant and went over it with the patient. ROS-No Headache, No Visual Changes, No Nausea, No Vomiting, No Fever, No Chills, No Neck Pain or Stiffness, No Chest Pain, No Palpitations, No SOB, No ELIZABETH, No Cough, No Sputum, No Wheezing, No Abdominal Pain, No Diarrhea, No Hematemesis, No Hemoptysis, No Unexpected Weight Loss, No Flank pain, No Melena, No Hematochezia, No Frequency, No Urgency, No Burning, No Hematuria, No Rashes, No Diaphoresis. Appetite is Normal Physical Exam Gen-AAO x 3, NAD, Afebrile Head-NCAT, EOMI, PERRLA, Anicteric Sclera, No Posterior Pharyngeal Erythema Neck-Supple, No JVD, No Thyromegaly, No Masses, No LAD, No Bruits Lungs-Clear to Auscultation Bilaterally, No Rales, No Rhonchi, No Wheezing, No Crepitus Chest-No S4, +S1, +S2, No S3, No Murmurs, No Rubs, No Gallops, No Ectopy Abdomen-Soft, Bowel Sounds Present, Non Tender, Non Distended, No Hepatomegaly, No Splenomegaly, No Palpable Masses, No Rebound, No Rigidity, No Guarding Musculoskeletal-Full Range of Motion Bilaterally, No CVAT Extremities-No Cyanosis, No Clubbing, No Edema Nuero-Cranial Nerves II-XII grossly intact, Motor WNL, DTRs WNL, Strength WNL, Non Focal Psych-Flat Mood (1) Alcohol withdrawal Complication of substance-induced condition: uncomplicated Qualified Code(s): F10.230 - Alcohol dependence with withdrawal, uncomplicated (2) Alcohol intoxication Complication of substance-induced condition: uncomplicated Qualified Code(s): F10.920 - Alcohol use, unspecified with intoxication, uncomplicated
[2021-06-08] MEDS ORDERED: MAGNESIUM SULFATE / D5W 1 GM/100 ML BAG IV ONE (09:55)
[2021-06-08] MEDS ORDERED: ALUMINUM/MAGNESIUM SUSP 30 ML UDC PO PRN (10:17)
[2021-06-08] MEDS ORDERED: POLYETHYLENE (MIRALAX) 17 GM PACK PO PRN (10:17)
[2021-06-08] MEDS ORDERED: MAGNESIUM HYDROXIDE SUSP 30 ML UDC PO PRN (10:17)
[2021-06-08] MEDS ORDERED: ATIVAN IV ALCOHOL WITHDRAWL IV PRN (10:17)
--- NOTE | 2021-06-08 11:11 | Psychiatric Consultation ---
Date of Consultation June 08, 2021 Impression / Recommendations Impression This is a 26 yo with a history of BPAD II, depression, anxiety, pancreatitis, and alcohol use admitted medically. Diagnostically consistent with alcohol use disorder, severe with significant history of medical and social negative consequences and ongoing pattern of use with complicated withdrawals and difficulty cutting down on use. Additionally has unspecified depression and anxiety likely a combination of substance-induced as well as possible BPAD II per history. At this point risk of harm to self and others is slightly increased due to substance use with substance use treatment being the most significant modifiable risk factor to reduce acute and chronic risk. She is currently denying SI and HI though of note will not be within normal range of FRANKI until after 4pm this afternoon so will reassess again tomorrow. Once medically stabilized will determine most appropriate treatment but most likely recommendation will be for dual diagnosis or residential substance use treatment which she reports she may be open to. Can consider medication assisted treatment as she becomes more medical stable, probably as an outpatient or at residential tx setting. -Continue to assess as FRANKI normalizes, currently on 302 warrant -Psychiatric liason will provide resources on local mental health services and substance use services; will continue to evaluate willingness to consider residential or dual diagnosis tx -Given current denial of SI and HI most likely will not need 1-on-1 but will re- evaluate as FRANKI improves, if further statements of SI are made would re-initiate 1-on-1 -Continue AWSS as well as thiamine and folic acid -Agree with using gabapentin to help with anxiety, pain and alcohol withdrawal (1) Alcohol use disorder, severe, dependence: (2) Unspecified mood [affective] disorder: see impression Risk Factors Assessment Do You Have Access To A Gun?: No Mental Health Diagnoses: Yes Substance Use Disorders: Yes Previous Attempt: No Hopelessness: No Protective Factors Assessment Stable Relationships: Yes Psych History Identifying Data Zahida is a 26 yo woman with a history of BPAD II, depression, anxiety, alcohol use disorder, marijuana use, recurrent pancreatitis, thrombocytopenia admitted medically for complicated alcohol withdrawal. Psychiatry was consulted for recom mendations. Chief Complaint "I feel horrible". History of Present Illness Zahida has a history of mood symptoms and multiple past inpatient admissions for complicated withdrawal from alcohol and alcohol-induced pancreatitis. She presented to the ED on 302 warrant completed by her boyfriend who reported that she was making statements of suicide (asking him to stab her or to let her stab herself in the face) and made one statement of HI (threatened boyfriend when EMS arrived). Per 302 warrant documentation her boyfriend noted that statements were made in the context of her attempting to "detox" from alcohol. On arrival to the ED her FRANKI was significantly elevated at 646 and she was yelling at staff and upset. Today she is lying in bed and somewhat drowsy after recieving multiple doses of lorazepam as per AWSS as well as gabapentin. She continues to feel "awful" physically and endorses significant pain "all over" and is tearful and distressed. She reports drinking a handle of tequila daily as well as "whatever I can get my hands on" prior to coming to the ED. She adamantly denies SI and HI currently stating "he did that so that I'd come here" and "I do not want to kill myself at all, I like life" and denies HI. She endorses symptoms of depression and anxiety and states she has a diagnosis of BPAD II which has not responded well to medication as she tends to develop rashes. Notably allergy list reports rash to lamictal, unclear if any other mood stabilizers have been trialed. She states she manages her BPAD II by smoking marijuana. She states she may be open to residential treatment for alcohol use and has done residential tx in the past. Further interview is limited by her level of distress from pain and her desire to close her eyes and try to sleep. Past Psychiatric History Previous Psych History: see [facility], BPAD II Outpatient Services: none Do You Have Access To A Gun?: No History of Previous Suicide Attempt: No Past Medication Trials: Per chart review: vistaril, gabapentin, cymbalta, lamictal, seroquel, ativan Allergies Allergy/AdvReac Type Severity Reaction Status Date / Time lamotrigine [From Lamictal] Allergy Mild Rash Verified 05/29/20 01:47 amairani Allergy Mild GUMS SWELL Verified 05/29/20 01:47 mushroom Allergy Mild GUMS SWELL Verified 05/29/20 01:47 ketorolac [From Toradol] AdvReac Mild Irritable Verified 05/29/20 01:47 Home Medications Medication Instructions Recorded Confirmed Type No Known Home Medications 05/29/20 06/08/21 History Family History paternal and maternal substance use disorders. Substance Abuse History see HPI. significant alcohol use with medical and social complications. Hx opoioid use disorder with tx from [id number] for such. Personal History Born In: [place], eventually moved to [place] with her mother Highest Grade Completed: High School Graduate Employment Status: Unemployed Beliefs That Will Affect Care: None Patient History Medical History Alcohol abuse Closed fracture of left distal radius Closed fracture of right olecranon process Marijuana use Mood disorder Polysubstance abuse Recurrent pancreatitis Seizure disorder Tobacco use disorder Surgical History History of D&C x 3 History of orthopedic surgery Family History Other No significant family history Social History Smoking Status: Current some day smoker Tobacco Type: Cigarettes Cigarettes Per Day: 20; Second Hand Exposure: No; Do You Dip or Chew Tobacco: No; Hx Alcohol Use: Yes Alcohol type: beer, wine and hard liquor Alcohol type Comme nt: handle of vodka a day Hx Substance Use: Yes Prescribed Medications: Marijuana Last Used Substance: Just Prior to Arrival Preferred Language: Turkmen Communication Ability: Effective Visual Impairment: No Limitations Finance Business Partner Required: No Beliefs That Will Affect Care: None marital status: Single Current Living Situation Comment: roomate Feels Safe at Home: Yes Assistive Devices: None Physical Exam Psychiatric: Orientation: alert and oriented x 3 Apperance: appropriately dressed and + disheveled Eye Contact: + fair eye contact Motor Behavior: no abnormal motor movements Speech: normal rate/rhythm/volume of speech (brief, loud) Affect: + tearful affect Mood: + depressed mood, + anxious mood and + irritable mood Thought Process: clear/coherent thought process Thought Content: reality based without delusions Suicidal Thoughts: denies suicidal thoughts Homicidal Thoughts: denies homicidal thoughts Hallucinations: no auditory hallucinations and no visual hallucinations Insight: + impaired insight Judgement: + impaired judgement Vital Signs (Past 24 Hours): Last Vital Signs Temp 36.9 C 06/08/21 07:00 Pulse 137 H 06/08/21 10:17 Resp 18 06/08/21 10:17 BP 112/71 06/08/21 10:17 Pulse Ox 96 06/08/21 10:17 Review of Systems All systems reviewed & are unremarkable except as noted in HPI & below (endorses all over pain, difficulty sleeping) Results & Data ([facility]) Laboratory Results UDS positive for alcohol and marijuana; CBC abnormalities; AST 137, ALT wnl Medications Administered Magnesium Sulfate/Dextrose (Magnesium Sulfate / D5w) 1 gm in 100 mls @ 50 mls/hr IV ONE ONE Stop: 06/08/21 11:54 Last Admin: 06/08/21 10:12 Dose: 50 mls/hr Documented by: [id number] Coding Level of Care Code 13335 Inpt Consult Level 3 Diagnoses Alcohol use disorder, severe, dependence F10.20 Unspecified mood [affective] disorder F39
[2021-06-08] MEDS ORDERED: POTASSIUM CHLORIDE CRTAB 20 MEQ TABCR PO ONE (12:00)
[2021-06-08] MEDS: FOLIC ACID 1 MG in SYRINGE 9.8 ML IV SCH (12:14)
[2021-06-08] MEDS: LACTATED RINGER'S 1,000 ML IV SCH ×2 (12:15→19:25)
[2021-06-08] MEDS: THIAMINE HCL 100 MG in SYRINGE 9 ML IV SCH (12:15)
[2021-06-08] MEDS ORDERED: STAT IV STA (13:06)
[2021-06-08] MEDS ORDERED: CALCIUM GLUCONATE 10% 1,000 MG in DEXTROSE 5% 50 ML IV ONE (13:15)
[2021-06-08] MEDS: GABAPENTIN 600 MG TAB PO SCH ×2 (14:32→20:16)
[2021-06-08 15:00] LABS: Anion Gap 12 (3-11); Blood Urea Nitrogen 3 mg/dl (6-23); Calcium 7.6 mg/dl (8.5-10.1); Carbon Dioxide 19 mmol/L (21-32); Chloride 106 mmol/L (98-107); Creatinine Clr Calc Pharmacy 175.3 ml/min; Est GFR (African American) > 150.0 ml/min; Est GFR (Non-African American) 138.4 ml/min; Glucose 65 mg/dl (70-99(Fasting)); Magnesium 1.6 mg/dl (1.7-2.4); Potassium 3.7 mmol/L (3.5-5.1); Sodium 137 mmol/L (136-145)
[2021-06-08] MEDS ORDERED: D5W AND NSS 1,000 ML IV SCH (15:15)
[2021-06-08] MEDS ORDERED: CARBOHYDRATES FOR HYPOGLYCEMIA PO PRN (15:18)
[2021-06-08] MEDS ORDERED: GLUCOSE 10 TABS/TUBE PO PRN (15:18)
[2021-06-08] MEDS ORDERED: DEXTROSE 50% 50 ML SYRINGE IV PRN (15:18)
[2021-06-08] MEDS ORDERED: GLUCAGON FOR INJ 1 MG VIAL SQ PRN (15:18)
[2021-06-08] MEDS ORDERED: GLUCOSE 40% GEL 15 GM TUBE PO PRN (15:18)
[2021-06-08] MEDS ORDERED: MAGNESIUM SULFATE / D5W 1 GM/100 ML BAG IV STA (15:24)
[2021-06-08] MEDS ORDERED: CEFEPIME 2,000 MG/20 ML VIAL ONE (15:34)
[2021-06-08] MEDS: CEFEPIME 2,000 MG in SYRINGE 0 ML IV SCH (16:04)
[2021-06-08] MEDS: LORazepam 2 MG/4 ML VIAL IV PRN ×2 (16:17→18:39)
[2021-06-08] MEDS: ONDANSETRON INJ 2 MG/ML 2 ML VIAL IV PRN (17:35)
[2021-06-08] MEDS: LORazepam 3 MG/6 ML VIAL IV PRN ×2 (17:52→21:11)
[2021-06-08] MEDS: LORazepam 1 MG/2 ML VIAL IV PRN (19:50)
[2021-06-08] MEDS: MAGNESIUM OXIDE 400 MG TAB PO SCH (20:16)
[2021-06-08] MEDS: D5W AND NSS 1,000 ML IV SCH (22:25)
[2021-06-09] MEDS: CEFEPIME 2,000 MG in SYRINGE 0 ML IV SCH ×3 (00:37→16:29)
[2021-06-09] MEDS: LORazepam 1 MG/2 ML VIAL IV PRN ×2 (00:41→08:54)
[2021-06-09] MEDS: GABAPENTIN 600 MG TAB PO SCH ×3 (03:59→20:20)
[2021-06-09 04:57] LABS: Hematocrit (blood only) 32.7 % (37-47); Hemoglobin 10.9 g/dL (12.0-16.0); Mean Corpuscular Hemoglobin 33.4 pg (25-34); Mean Corpuscular Hgb Conc 33.3 g/dL (32-36); Mean Corpuscular Volume 100.3 fL (80-100); RDW Coefficient of Variation 16.7 % (11.5-14.5); Red Blood Count 3.26 M/uL (4.2-5.4)
[2021-06-09 05:08] LABS: Platelet Count 52 K/uL (130-400)
[2021-06-09 05:37] LABS: Alanine Aminotransferase 36 U/L (7-52); Albumin Globulin Ratio 1.3 (0.9-2); Albumin Level 3.4 gm/dl (3.4-5.0); Alkaline Phosphatase 53 U/L (34-104); Anion Gap 7 (3-11); Aspartate Aminotransferase 102 U/L (13-39); BUN Creatinine Ratio 8.7 (10-20); Bilirubin,Total 1.3 mg/dl (0.2-1.0); Blood Urea Nitrogen 4 mg/dl (6-23); Calcium 8.1 mg/dl (8.5-10.1); Carbon Dioxide 25 mmol/L (21-32); Chloride 103 mmol/L (98-107); Creatinine Clr Calc Pharmacy 163.8 ml/min; Est GFR (African American) > 150.0 ml/min; Est GFR (Non-African American) 135.4 ml/min; Globulin 2.6 gm/dl (2.5-4.0); Glucose 121 mg/dl (70-99(Fasting)); Lipase 50 U/L (11-82); Potassium 3.6 mmol/L (3.5-5.1); Sodium 135 mmol/L (136-145)
[2021-06-09] MEDS ORDERED: MoRPHine SULFATE 2 MG/ML CARP IV STA (05:57)
[2021-06-09] MEDS ORDERED: LOPERAMIDE HCL 2 MG CAP PO STA (05:57)
[2021-06-09] MEDS: D5W AND NSS 1,000 ML IV SCH ×3 (06:06→22:01)
[2021-06-09 06:17] LABS: Basophils # (auto) 0.02 K/uL (0-0.2); Basophils % (auto) 0.6 %; Eosinophils # (auto) 0.08 K/uL (0-0.5); Eosinophils % (auto) 2.3 %; Immature Granulocytes # (auto) 0.01 K/uL (0.00-0.02); Immature Granulocytes % (auto) 0.3 %; Lymphocytes # (auto) 1.51 K/uL (1.2-3.4); Lymphocytes % (auto) 43.1 %; Monocytes # (auto) 0.45 K/uL (0.11-0.59); Monocytes % (auto) 12.9 %; Neutrophils # (auto) 1.43 K/uL (1.4-6.5); Neutrophils % (auto) 40.8 %; RBC Morphology Unremarkable
[2021-06-09 07:55] LABS: Estimated Average Glucose 103 mg/dl; Hemoglobin A1C 5.2 % (4.5-5.6)
[2021-06-09] MEDS ORDERED: CEFEPIME 2,000 MG/20 ML VIAL ONE (08:15)
[2021-06-09] MEDS: MAGNESIUM OXIDE 400 MG TAB PO SCH ×2 (08:49→20:20)
[2021-06-09] MEDS: THIAMINE HCL 100 MG in SYRINGE 9 ML IV SCH (08:49)
[2021-06-09] MEDS: FOLIC ACID 1 MG in SYRINGE 9.8 ML IV SCH (08:49)
[2021-06-09] MEDS: LORazepam 3 MG/6 ML VIAL IV PRN ×3 (11:56→21:15)
--- NOTE | 2021-06-09 12:18 | Hospitalist Progress Note ---
Date of Service June 09, 2021 Assessment & Plan (1) Alcohol withdrawal: (2) Suicidal ideation: (3) Abdominal pain: (4) Alcohol intoxication: (5) Hypokalemia: (6) Hypomagnesemia: Plan: This is a 26-year-old female who has significant past medical history of alcohol abuse, chronic thrombocytopenia, pancytopenia, major depressive disorder, history of recurrent alcoholic pancreatitis, history of drug abuse who presented to ED via EMS for mental health evaluation. Alcohol Intoxication Alcohol withdrawal Patient drinks a handle of vodka daily, will need alcohol cessation education when more sober and alert History of withdrawal seizure Admit to PCU AWSS Protocol with gabapentin taper and IV Ativan IV folic acid and thiamine Received banana bag in ED Continue IV fluids Suicidal Ideation Patient with reported suicidal ideation per boyfriend psych input noted, 1:1 not needed, not suicidal any longer History of depression, but currently not taking any medication Abdominal Pain-when I press on her belly with my hands she has pain, when I press on her belly with my stethoscope she has no pain History of recurrent alcoholic pancreatitis Patient reports abdominal pain, abdomen is soft but tender, as above Lipase WNL, CT a/p w/o evidence of acute pancreatitis Hypokalemia Hypomagnesemia replete follow SIRS Pancytopenia with neutropenia-likely bone marrow suppression from alcohol No clear source of infection, may be in setting of alcohol withdrawal Culture results negative pt will need OP hematology evaluation PCP: Harpreet FULL CODE Dispo: PCU, cleared by psych ROS-No Headache, No Visual Changes, No Nausea, No Vomiting, No Fever, No Chills, No Neck Pain or Stiffness, No Chest Pain, No Palpitations, No SOB, No ELIZABETH, No Cough, No Sputum, No Wheezing, +Abdominal Pain, No Diarrhea, No Hematemesis, No Hemoptysis, No Unexpected Weight Loss, No Flank pain, No Melena, No Hematochezia, No Frequency, No Urgency, No Burning, No Hematuria, No Rashes, No Diaphoresis. Appetite is Normal Physical Exam Gen-AAO x 3, complains of pain, is shaky, Afebrile Head-NCAT, EOMI, PERRLA, Anicteric Sclera, No Posterior Pharyngeal Erythema Neck-Supple, No JVD, No Thyromegaly, No Masses, No LAD, No Bruits Lungs-Clear to Auscultation Bilaterally, No Rales, No Rhonchi, No Wheezing, No Crepitus Chest-No S4, +S1, +S2, No S3, No Murmurs, No Rubs, No Gallops, No Ectopy Abdomen-Soft, Bowel Sounds Present, Non Tender, Non Distended, No Hepatomegaly, No Splenomegaly, No Palpable Masses, No Rebound, No Rigidity, No Guarding Musculoskeletal-Full Range of Motion Bilaterally, No CVAT Extremities-No Cyanosis, No Clubbing, No Edema Nuero-Cranial Nerves II-XII grossly intact, Motor WNL, DTRs WNL, Strength WNL, Non Focal Psych-anxious Admission and Anticipated Discharge Date Admission Date: June 08, 2021 Subjective Patient seen complaining of abdominal pain Results & Data Results & Data ([facility]) Vital Signs (Past 12 Hours) Vital Signs Temp Pulse Pulse Resp BP BP Pulse Ox 06/09/21 08:58 37.1 C 108 H 21 112/80 98 06/09/21 06:15 124 H 22 06/09/21 06:00 119 H 31 H 122/93 06/09/21 05:45 117 H 21 06/09/21 05:30 112 H 20 119/90 96 06/09/21 05:15 111 H 23 98 06/09/21 05:00 126/86 06/09/21 04:30 120/87 06/09/21 04:00 116 H 25 H 133/87 97 06/09/21 03:30 123/85 06/09/21 03:00 120/94 06/09/21 02:30 37.1 C 111 H 20 124/85 96 06/09/21 02:00 107 H 18 116/82 96 Laboratory Results Reviewed (1) Alcohol withdrawal Complication of substance-induced condition: uncomplicated Qualified Code(s): F10.230 - Alcohol dependence with withdrawal, uncomplicated (2) Alcohol intoxication Complication of substance-induced condition: uncomplicated Qualified Code(s): F10.920 - Alcohol use, unspecified with intoxication, uncomplicated
--- NOTE | 2021-06-09 13:31 | Psychiatric Progress Note ---
Date of Service June 09, 2021 Impression / Recommendations Impression This is a 26 yo with a history of BPAD II, depression, anxiety, pancreatitis, and alcohol use admitted medically. Diagnostically consistent with alcohol use disorder, severe with significant history of medical and social negative consequences and ongoing pattern of use with complicated withdrawals and difficulty cutting down on use. Additionally has unspecified depression and anxiety likely a combination of substance-induced as well as possible BPAD II per history. At this point risk of harm to self and others is slightly increased due to substance use with substance use treatment being the most significant modifiable risk factor to reduce acute and chronic risk. She continues to deny SI and HI now that her FRANKI is normal and does not meet 302 criteria. Once medically stabilized will determine most appropriate treatment but recommendation will be for residential substance use treatment which she reports she may be open to. Can consider medication assisted treatment as she becomes more medical stable, probably as an outpatient or at residential tx setting. 06/09/21: Reassessment now that her FRANKI is 0 and she continues to deny SI and HI in a convincing and genuine manner. She no longer meets criteria for 302 warrant so this is no longer in effect and she can leave AMA if desired. She remains willing to consider residential substance use treatment but feels unable to make any firm decisions until she's feeling a bit better. Reviewed that when she is ready to make a decision regarding referrals for residential or if she declines for outpatient then we will be happy to help with this. -No longer meets 302 criteria, can leave AMA -Does not need 1-on-1 -Psychiatric liason will provide resources on local mental health services and substance use services when she feels agreeable to reviewing these; will continue to evaluate willingness to consider residential or dual diagnosis tx -Continue AWSS as well as thiamine and folic acid -Agree with using gabapentin to help with anxiety, pain and alcohol withdrawal (1) Alcohol use disorder, severe, dependence: (2) Unspecified mood [affective] disorder: see impression Risk Factors Assessment Do You Have Access To A Gun?: No Mental Health Diagnoses: Yes Substance Use Disorders: Yes Previous Attempt: No Hopelessness: No Protective Factors Assessment Stable Relationships: Yes Interval History Identifying Information Zahida is a 26 yo woman with a history of BPAD II, depression, anxiety, alcohol use disorder, marijuana use, recurrent pancreatitis, thrombocytopenia admitted medically for complicated alcohol withdrawal. Psychiatry was consulted for recommendations. Chief Complaint "I still have a lot of pain". Review of Systems Notes Reports difficulty with sleep, improves appetite-wants popsicle Subjective Subjective Patient was seen & assessed and interval progress reviewed. Continues to have significant withdrawal symptoms but remains motivated for substance use treatment. Reports she feels "awful" due to pain "all over". 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 She co nfirms again that she has no access to guns and has never attempted suicide before. She expresses willingness to talk more about substance use treatment options once she feels less pain and withdrawal symptoms. Physical Exam Psychiatric Orientation: alert and oriented x 3 Apperance: appropriately dressed and + disheveled Eye Contact: + fair eye contact Motor Behavior: no abnormal motor movements Speech: normal rate/rhythm/volume of speech (brief, loud) Affect: + tearful affect (reports feeling pain due to withdrawal symptoms) Mood: + depressed mood and + anxious mood Thought Process: clear/coherent thought process Thought Content: reality based without delusions Suicidal Thoughts: denies suicidal thoughts Homicidal Thoughts: denies homicidal thoughts Hallucinations: no auditory hallucinations and no visual hallucinations Insight: + fair insight Judgement: + fair judgement Vital Signs (Past 24 Hours) Last Vital Signs Temp 37.1 C 06/09/21 08:58 Pulse 108 H 06/09/21 08:58 Resp 21 06/09/21 08:58 BP 112/80 06/09/21 08:58 Pulse Ox 98 06/09/21 08:58 Results & Data ([facility]) Laboratory Results Laboratory Results - last 24 hr 06/08/21 06/08/21 06/08/21 14:16 14:16 15:54 WBC RBC Hgb Hct MCV MCH MCHC RDW Std Deviation RDW Coeff of Nayana Plt Count MPV Immature Gran % (Auto) Neut % (Auto) Lymph % (Auto) Sharp % (Auto) Eos % (Auto) Baso % (Auto) Neut # (Auto) Lymph # (Auto) Sharp # (Auto) Eos # (Auto) Baso # (Auto) Immature Gran # (Auto) RBC Morphology Sodium 137 Potassium 3.7 Chloride 106 Carbon Dioxide 19 L Anion Gap 12 H BUN 3 L Creatinine 0.43 L Est Cr Clr Drug Dosing 175.3 Est GFR ( Amer) > 150.0 Est GFR (Non-Af Amer) 138.4 BUN/Creatinine Ratio 7.0 L Glucose 65 L POC Glucose 74 Estimat Average Glucose Hemoglobin A1c Calcium 7.6 L Ionized Calcium 1.01 L Magnesium 1.6 L Total Bilirubin AST ALT Alkaline Phosphatase Total Protein Albumin Globulin Albumin/Globulin Ratio Lipase 06/08/21 06/08/21 06/08/21 22:10 22:40 23:57 WBC RBC Hgb Hct MCV MCH MCHC RDW Std Deviation RDW Coeff of Nayana Plt Count MPV Immature Gran % (Auto) Neut % (Auto) Lymph % (Auto) Sharp % (Auto) Eos % (Auto) Baso % (Auto) Neut # (Auto) Lymph # (Auto) Sharp # (Auto) Eos # (Auto) Baso # (Auto) Immature Gran # (Auto) RBC Morphology Sodium Potassium Chloride Carbon Dioxide Anion Gap BUN Creatinine Est Cr Clr Drug Dosing Est GFR ( Amer) Est GFR (Non-Af Amer) BUN/Creatinine Ratio Glucose POC Glucose 68 L* 88 155 H Estimat Average Glucose Hemoglobin A1c Calcium Ionized Calcium Magnesium Total Bilirubin AST ALT Alkaline Phosphatase Total Protein Albumin Globulin Albumin/Globulin Ratio Lipase 06/09/21 06/09/21 06/09/21 04:46 04:46 04:46 WBC 3.50 L RBC 3.26 L Hgb 10.9 L Hct 32.7 L MCV 100.3 H MCH 33.4 MCHC 33.3 RDW Std Deviation 61.0 H RDW Coeff of Nayana 16.7 H Plt Count 52 L MPV 9.0 Immature Gran % (Auto) 0.3 Neut % (Auto) 40.8 Lymph % (Auto) 43.1 Sharp % (Auto) 12.9 Eos % (Auto) 2.3 Baso % (Auto) 0.6 Neut # (Auto) 1.43 Lymph # (Auto) 1.51 Sharp # (Auto) 0.45 Eos # (Auto) 0.08 Baso # (Auto) 0.02 Immature Gran # (Auto) 0.01 RBC Morphology Unremarkable Sodium 135 L Potassium 3.6 Chloride 103 Carbon Dioxide 25 Anion Gap 7 BUN 4 L Creatinine 0.46 L Est Cr Clr Drug Dosing 163.8 Est GFR ( Amer) > 150.0 Est GFR (Non-Af Amer) 135.4 BUN/Creatinine Ratio 8.7 L Glucose 121 H POC Glucose Estimat Average Glucose 103 Hemoglobin A1c 5.2 Calcium 8.1 L Ionized Calcium Magnesium 2.0 Total Bilirubin 1.3 H D AST 102 H ALT 36 Alkaline Phosphatase 53 Total Protein 6.0 Albumin 3.4 Globulin 2.6 Albumin/Globulin Ratio 1.3 Lipase 50 06/09/21 06/09/21 04:46 12:24 WBC RBC Hgb Hct MCV MCH MCHC RDW Std Deviation RDW Coeff of Nayana Plt Count MPV Immature Gran % (Auto) Neut % (Auto) Lymph % (Auto) Sharp % (Auto) Eos % (Auto) Baso % (Auto) Neut # (Auto) Lymph # (Auto) Sharp # (Auto) Eos # (Auto) Baso # (Auto) Immature Gran # (Auto) RBC Morphology Sodium Potassium Chloride Carbon Dioxide Anion Gap BUN Creatinine Est Cr Clr Drug Dosing Est GFR ( Amer) Est GFR (Non-Af Amer) BUN/Creatinine Ratio Glucose POC Glucose 135 H Estimat Average Glucose Hemoglobin A1c Calcium Ionized Calcium 1.07 L Magnesium Total Bilirubin AST ALT Alkaline Phosphatase Total Protein Albumin Globulin Albumin/Globulin Ratio Lipase Current Inpatient Medications Current Inpatient Medications: Current Inpatient Medications Acetaminophen (Acetaminophen 325 Mg Tab) 650 mg PO Q4H PRN PRN Reason: Pain or Fever Stop: 07/08/21 10:16 Al Hydrox/Mg Hydrox/Simethicone (Aluminum/Magnesium Susp 30 Ml Udc) 15 ml PO Q4H PRN PRN Reason: Dyspepsia Stop: 07/08/21 10:16 Dextrose (Dextrose 50% 50 Ml Syringe) 25 - 50 ml IV UD PRN; Protocol PRN Reason: Hypoglycemia Protocol Stop: 07/08/21 15:17 Gabapentin (Gabapentin 600 Mg Tab) 600 mg PO Q8H CHUN Stop: 06/09/21 20:01 Last Admin: 06/09/21 11:48 Dose: 600 mg Documented by: Gabapentin (Gabapentin 600 Mg Tab) 600 mg PO Q12H CHUN Stop: 06/10/21 20:01 Gabapentin (Gabapentin 600 Mg Tab) 600 mg PO Q24H CHUN Stop: 06/11/21 20:01 Glucagon (Glucagon For Inj 1 Mg Vial) 1 mg SQ UD PRN; Protocol PRN Reason: Hypoglycemia Protocol Stop: 07/08/21 15:17 Glucose (Glucose 10 Tabs/Tube) 4 - 8 tabs PO UD PRN; Protocol PRN Reason: Hypoglycemia Protocol Stop: 07/08/21 15:17 Glucose (Glucose 40% Gel 15 Gm Tube) 15 - 30 gm PO UD PRN; Protocol PRN Reason: Hypoglycemia Protocol Stop: 07/08/21 15:17 Cefepime HCl 2,000 mg/ Syringe 20 mls @ 5 mls/min IV Q8H [facility] Stop: 06/10/21 15:59 Last Admin: 06/09/21 08:49 Dose: 5 mls/min Documented by: Thiamine HCl 100 mg/ Syringe 10 mls @ 2 mls/min IV QAM [facility] Stop: 07/08/21 10:44 Last Admin: 06/09/21 08:49 Dose: 2 mls/min Documented by: Folic Acid 1 mg/ Syringe 10 mls @ 5 mls/min IV QAM [facility] Stop: 07/08/21 10:44 Last Admin: 06/09/21 08:49 Dose: 5 mls/min Documented by: Lorazepam (Ativan) 1 mg in 2 mls @ 2 mls/min IV UD PRN; Protocol PRN Reason: EtOH Withdrawl AWSS Score 6,7 Stop: 07/08/21 10:16 Last Admin: 06/09/21 08:54 Dose: 2 mls/min Documented by: Lorazepam (Ativan) 2 mg in 4 mls @ 4 mls/min IV UD PRN; Protocol PRN Reason: EtOH Withdrawl AWSS Score 8,9 Stop: 07/08/21 10:16 Last Admin: 06/08/21 18:39 Dose: 4 mls/min Documented by: Lorazepam (Ativan) 3 mg in 6 mls @ 4 mls/min IV ONCE PRN; Protocol PRN Reason: EtOH Withdrawl AWSS Score >=10 Stop: 07/08/21 10:16 Last Admin: 06/09/21 11:56 Dose: 4 mls/min Documented by: Dextrose/Sodium Chloride (D5w And Nss) 1,000 mls @ 125 mls/hr IV .Q8H [facility] Stop: 07/08/21 22:29 Last Admin: 06/09/21 06:06 Dose: 125 mls/hr Documented by: Magnesium Hydroxide (Magnesium Hydroxide Susp 30 Ml Udc) 30 ml PO Q12H PRN PRN Reason: Constipation Stop: 07/08/21 10:16 Magnesium Oxide (Magnesium Oxide 400 Mg Tab) 400 mg PO BID CHUN Stop: 06/11/21 20:59 Last Admin: 06/09/21 08:49 Dose: 400 mg Documented by: Miscellaneous (Carbohydrates For Hypoglycemia ) 15 - 30 gm PO UD PRN PRN Reason: Hypoglycemia Protocol Stop: 07/08/21 15:17 Ondansetron HCl (Ondansetron Inj 2 Mg/Ml 2 Ml Vial) 4 mg IV Q6H PRN PRN Reason: Nausea Stop: 07/08/21 10:16 Last Admin: 06/08/21 17:35 Dose: 4 mg Documented by: Polyethylene Glycol (Polyethylene (Miralax) 17 Gm Pack) 17 gm PO DAILY PRN PRN Reason: Constipation Stop: 07/08/21 10:16
[2021-06-09] MEDS: LORazepam 2 MG/4 ML VIAL IV PRN (13:47)
[2021-06-09] MEDS: ACETAMINOPHEN 325 MG TAB PO PRN (22:00)
[2021-06-10] MEDS: LORazepam 3 MG/6 ML VIAL IV PRN ×3 (00:15→06:20)
[2021-06-10] MEDS: CEFEPIME 2,000 MG in SYRINGE 0 ML IV SCH ×2 (00:32→08:42)
[2021-06-10] MEDS ORDERED: MoRPHine SULFATE 2 MG/ML CARP IV STA (01:05)
[2021-06-10] MEDS ORDERED: LORazepam 1 MG/2 ML VIAL IV STA (04:13)
[2021-06-10] MEDS ORDERED: HYDROmorphone INJ 0.5 MG/0.5 ML SYR IV STA (04:13)
[2021-06-10 07:53] LABS: Marijuana Quant, GCMS Urine 1069 ng/mL (<5)
[2021-06-10] MEDS: D5W AND NSS 1,000 ML IV SCH ×2 (08:23→21:20)
[2021-06-10] MEDS: FOLIC ACID 1 MG in SYRINGE 9.8 ML IV SCH (08:42)
[2021-06-10] MEDS: GABAPENTIN 600 MG TAB PO SCH ×2 (08:42→20:28)
[2021-06-10] MEDS: MAGNESIUM OXIDE 400 MG TAB PO SCH ×2 (08:43→20:28)
[2021-06-10] MEDS: THIAMINE HCL 100 MG in SYRINGE 9 ML IV SCH (08:43)
[2021-06-10 10:08] LABS: Hematocrit (blood only) 33.1 % (37-47); Hemoglobin 10.5 g/dL (12.0-16.0); Mean Corpuscular Hemoglobin 32.5 pg (25-34); Mean Corpuscular Hgb Conc 31.7 g/dL (32-36); Mean Corpuscular Volume 102.5 fL (80-100); RDW Coefficient of Variation 16.4 % (11.5-14.5); RDW Standard Deviation 61.5 fL (36.4-46.3); Red Blood Count 3.23 M/uL (4.2-5.4); White Blood Count 2.73 K/uL (4.8-10.8)
[2021-06-10 10:33] LABS: Anion Gap 7 (3-11); Blood Urea Nitrogen 2 mg/dl (6-23); Calcium 8.5 mg/dl (8.5-10.1); Carbon Dioxide 24 mmol/L (21-32); Chloride 107 mmol/L (98-107); Creatinine Clr Calc Pharmacy 150.7 ml/min; Est GFR (African American) > 150.0 ml/min; Est GFR (Non-African American) 131.7 ml/min; Glucose 152 mg/dl (70-99(Fasting)); Potassium 3.4 mmol/L (3.5-5.1); Sodium 138 mmol/L (136-145)
[2021-06-10 10:42] LABS: Phosphorus 1.2 mg/dl (2.5-4.9)
[2021-06-10 10:47] LABS: Platelet Count 56 K/uL (130-400)
[2021-06-10 10:52] LABS: Basophils # (auto) 0.02 K/uL (0-0.2); Basophils % (auto) 0.7 %; Eosinophils # (auto) 0.16 K/uL (0-0.5); Eosinophils % (auto) 5.9 %; Immature Granulocytes # (auto) 0.01 K/uL (0.00-0.02); Immature Granulocytes % (auto) 0.4 %; Lymphocytes # (auto) 1.29 K/uL (1.2-3.4); Lymphocytes % (auto) 47.3 %; Monocytes # (auto) 0.44 K/uL (0.11-0.59); Monocytes % (auto) 16.1 %; Neutrophils # (auto) 0.81 K/uL (1.4-6.5); Neutrophils % (auto) 29.6 %
[2021-06-10] MEDS ORDERED: POTASSIUM CHLORIDE CRTAB 20 MEQ TABCR PO STA (11:59)
[2021-06-10] MEDS ORDERED: SODIUM PHOSPHATE 3 MMOL/1 ML INFUSION IV STA (11:59)
[2021-06-10] MEDS: LORazepam 1 MG/2 ML VIAL IV PRN ×2 (12:22→20:29)
[2021-06-10] MEDS: ACETAMINOPHEN 325 MG TAB PO PRN ×2 (12:23→20:28)
[2021-06-10] MEDS ORDERED: SODIUM PHOSPHATE 40 MMOL in SODIUM CHLORIDE 0.9% 1000ML 1,000 ML IV ONE (12:30)
[2021-06-10] MEDS: LORazepam 2 MG/4 ML VIAL IV PRN ×3 (15:36→22:52)
--- NOTE | 2021-06-10 19:54 | Hospitalist Progress Note ---
Date of Service June 10, 2021 Assessment & Plan (1) Alcohol use disorder, severe, dependence: (2) Hypokalemia: (3) Alcohol withdrawal: Plan: 26-year-old female who has significant past medical history of alcohol abuse, chronic thrombocytopenia, pancytopenia, major depressive disorder, history of recurrent alcoholic pancreatitis, history of drug abuse presented to ED 06/08 via EMS for mental health evaluation. She is being managed for the following: #. Alcohol Intoxication #. Alcohol withdrawal Patient drinks a handle of vodka daily, will need alcohol cessation education when more sober and alert History of withdrawal seizure Admitted to PCU AWSS Protocol with gabapentin taper and IV Ativan IV folic acid and thiamine Received banana bag in ED Continue IV fluids #. Suicidal Ideation Patient with reported suicidal ideation per boyfriend psych input noted, 1:1 not needed, not suicidal any longer, no longer meets 302 criteria History of depression, but currently not taking any medication #. Abdominal Pain- Complaints of pain all over the body but no particular pain on abdominal examination. History of recurrent alcoholic pancreatitis Patient reports abdominal pain, abdomen is soft but tender, as above Lipase WNL, CT a/p w/o evidence of acute pancreatitis #. Hypokalemia #. Hypomagnesemia Repleted, replete and follow as appropriate. #. Pancytopenia with neutropenia- likely bone marrow suppression from alcohol No clear source of infection, may be in setting of alcohol withdrawal Culture results negative, patient received empiric antibiotic, will monitor off of antibiotics. pt will need OP hematology evaluation PCP: Harpreet FULL CODE Dispo: PCU, cleared by psych. Avoid medical stability. Admission and Anticipated Discharge Date Admission Date: June 08, 2021 Subjective 26-year-old lady with history of alcohol abuse is seen and examined for possible alcohol withdrawal and suicidal ideation at the bedside. Patient was lying in bed, on room air, in mild to moderate distress, complaining of pain all over the body, and he started crying. Patient has multiple episodes of diarrhea today. Patient denies cough/chest pain/palpitation/belly pain/other review of symptoms. Patient has just eaten her lunch. Physical Exam Physical Exam: GENERAL: Alert and oriented x3. mild distress, on RA. is shaky HEENT: No pallor, no icterus. Pupils equal, round and reactive to light. Oral mucosa moist. NECK: No JVD, no neck masses. HEART: S1 and S2 heard. Regular rate and rhythm. No murmur, no gallop. RESPIRATORY SYSTEM: Normal AP diameter. No accessory muscle use. No wheezing, no crackles. ABDOMEN: Soft, bowel sounds present, nontender, no distention. CENTRAL NERVOUS SYSTEM: No facial droop. Speech is clear. Obeys simple commands. Moves extremities. EXTREMITIES: No edema, no erythema seen. Results & Data Results & Data ([facility]) Vital Signs (Past 12 Hours) Vital Signs Temp Pulse Pulse Resp BP BP Pulse Ox 06/10/21 16:07 108 H 18 142/100 H 97 06/10/21 11:07 112 H 20 108/78 99 06/10/21 10:30 25 H 123/80 06/10/21 09:30 89 20 110/76 06/10/21 09:00 99 H 18 134/87 06/10/21 08:30 93 H 18 125/91 06/10/21 08:00 95 H 17 123/90 06/10/21 07:54 36.2 C L (1) Alcohol withdrawal Complication of substance-induced condition: uncomplicated Qualified Code(s): F10.230 - Alcohol dependence with withdrawal, uncomplicated
[2021-06-11 05:48] LABS: Hematocrit (blood only) 37.4 % (37-47); Hemoglobin 12.1 g/dL (12.0-16.0); Mean Corpuscular Hemoglobin 33.1 pg (25-34); Mean Corpuscular Hgb Conc 32.4 g/dL (32-36); Mean Corpuscular Volume 102.2 fL (80-100); RDW Coefficient of Variation 16.4 % (11.5-14.5); RDW Standard Deviation 61.2 fL (36.4-46.3); Red Blood Count 3.66 M/uL (4.2-5.4); White Blood Count 4.45 K/uL (4.8-10.8)
[2021-06-11 05:49] LABS: Mean Platelet Volume 10.7 fL (7.4-10.4); Platelet Count 83 K/uL (130-400)
[2021-06-11] MEDS: D5W AND NSS 1,000 ML IV SCH ×4 (05:50→22:44)
[2021-06-11 06:03] LABS: BUN Creatinine Ratio 3.4 (10-20); Creatinine Clr Calc Pharmacy 129.9 ml/min; Est GFR (African American) 145.4 ml/min; Est GFR (Non-African American) 125.4 ml/min; Magnesium 2.2 mg/dl (1.7-2.4); Phosphorus 4.2 mg/dl (2.5-4.9); Potassium 3.3 mmol/L (3.5-5.1)
[2021-06-11] MEDS: LORazepam 2 MG/4 ML VIAL IV PRN ×5 (07:38→18:28)
[2021-06-11] MEDS: ACETAMINOPHEN 325 MG TAB PO PRN (07:45)
[2021-06-11] MEDS: THIAMINE HCL 100 MG in SYRINGE 9 ML IV SCH (08:08)
[2021-06-11] MEDS: FOLIC ACID 1 MG in SYRINGE 9.8 ML IV SCH (08:08)
[2021-06-11] MEDS: MAGNESIUM OXIDE 400 MG TAB PO SCH (08:09)
[2021-06-11] MEDS: CALCIUM CARBONATE 500 MG CHEWABLE TAB PO SCH ×2 (09:47→20:03)
[2021-06-11] MEDS: PANTOprazole 40 MG TAB PO SCH (09:47)
[2021-06-11] MEDS: POTASSIUM CHLORIDE CRTAB 20 MEQ TABCR PO SCH ×2 (09:47→11:53)
[2021-06-11] MEDS: ONDANSETRON INJ 2 MG/ML 2 ML VIAL IV PRN (13:00)
[2021-06-11] MEDS: LORazepam 1 MG/2 ML VIAL IV PRN ×2 (15:51→23:47)
--- NOTE | 2021-06-11 18:08 | Hospitalist Progress Note ---
Date of Service June 11, 2021 Assessment & Plan (1) Alcohol use disorder, severe, dependence: (2) Hypokalemia: (3) Alcohol withdrawal: Plan: 26-year-old female who has significant past medical history of alcohol abuse, chronic thrombocytopenia, pancytopenia, major depressive disorder, history of recurrent alcoholic pancreatitis, history of drug abuse presented to ED 06/08 via EMS for mental health evaluation. She is being managed for the following: #. Alcohol Intoxication #. Alcohol withdrawal Patient drinks a handle of vodka daily, will need alcohol cessation education when more sober and alert History of withdrawal seizure Admitted to PCU AWSS Protocol with gabapentin taper and IV Ativan, patient requiring frequent Ativan doses, likely in withdrawal. IV folic acid and thiamine Received banana bag in ED Continue IV fluids #. Suicidal Ideation Patient with reported suicidal ideation per boyfriend psych input noted, 1:1 not needed, not suicidal any longer, no longer meets 302 criteria History of depression, but currently not taking any medication #. Abdominal Pain- Complaints of pain all over the body but no particular pain on abdominal examination. History of recurrent alcoholic pancreatitis Patient reports abdominal pain, abdomen is soft but tender, as above Lipase WNL, CT a/p w/o evidence of acute pancreatitis We will continue to monitor. #. Hypokalemia #. Hypomagnesemia Repleted, replete and follow as appropriate. #. Pancytopenia with neutropenia- likely bone marrow suppression from alcohol No clear source of infection, may be in setting of alcohol withdrawal Culture results negative, patient received empiric antibiotic, will monitor off of antibiotics. pt will need OP hematology evaluation PCP: Harpreet FULL CODE Dispo: PCU, cleared by psych. Avoid medical stability. Admission and Anticipated Discharge Date Admission Date: June 08, 2021 Subjective 26-year-old lady with history of alcohol abuse is seen and examined for possible alcohol withdrawal and suicidal ideation at the bedside. Patient was lying in bed, on room air, sleeping, started crying when woken up, complaining of pain all over the body today as well . Per RN, patient is eating okay and she still has some episodes of diarrhea.. Patient denies cough/chest pain/palpitation//other review of symptoms. Patient is apparently going through withdrawal. Physical Exam Physical Exam: GENERAL: Alert and oriented x3. mild distress, on RA. is shaky HEENT: No pallor, no icterus. Pupils equal, round and reactive to light. Oral mucosa moist. NECK: No JVD, no neck masses. HEART: S1 and S2 heard. Regular rate and rhythm. No murmur, no gallop. RESPIRATORY SYSTEM: Normal AP diameter. No accessory muscle use. No wheezing, no crackles. ABDOMEN: Soft, bowel sounds present, nontender, no distention. CENTRAL NERVOUS SYSTEM: No facial droop. Speech is clear. Obeys simple c ommands. Moves extremities. EXTREMITIES: No edema, no erythema seen. Results & Data Results & Data ([facility]) Vital Signs (Past 12 Hours) Vital Signs Temp Pulse Pulse Resp BP BP Pulse Ox 06/11/21 14:51 126 H 22 126/82 99 06/11/21 11:15 91 H 24 96 06/11/21 11:00 91 H 23 96 06/11/21 10:48 92 H 22 96 06/11/21 10:45 91 H 23 97 06/11/21 10:30 100 H 19 98 06/11/21 10:15 97 H 16 98 06/11/21 10:00 106 H 30 H 96 06/11/21 09:38 129/106 H 06/11/21 09:37 93 06/11/21 09:36 36.6 C 96 H 22 129/96 97 06/11/21 09:30 93 H 24 97 06/11/21 09:15 97 H 25 H 97 06/11/21 09:00 99 H 25 H 97 06/11/21 08:56 93 H 24 97 06/11/21 08:45 96 H 24 97 06/11/21 08:30 103 H 28 H 99 06/11/21 08:15 104 H 14 96 06/11/21 08:00 106 H 99 H 19 99 06/11/21 07:45 108 H 16 98 06/11/21 07:32 36.8 C 134 H 22 144/103 H 98 06/11/21 07:30 118 H 24 144/103 H 06/11/21 07:15 98 H 26 H 06/11/21 07:00 102 H 95 H 24 120/77 120/77 06/11/21 06:45 102 H 24 06/11/21 06:30 94 H 14 116/81 01/27/22 06:15 94 H 20 (1) Alcohol withdrawal Complication of substance-induced condition: uncomplicated Qualified Code(s): F10.230 - Alcohol dependence with withdrawal, uncomplicated
[2021-06-11] MEDS ORDERED: GABAPENTIN 600 MG TAB PO SCH (20:00)
[2021-06-11] MEDS: LORazepam 3 MG/6 ML VIAL IV PRN ×2 (21:08→22:43)
[2021-06-12] MEDS: LORazepam 1 MG/2 ML VIAL IV PRN ×2 (05:25→07:37)
[2021-06-12] MEDS: ACETAMINOPHEN 325 MG TAB PO PRN (05:27)
[2021-06-12 06:26] LABS: Hematocrit (blood only) 33.5 % (37-47); Hemoglobin 10.9 g/dL (12.0-16.0); Mean Corpuscular Hemoglobin 33.3 pg (25-34); Mean Corpuscular Hgb Conc 32.5 g/dL (32-36); Mean Corpuscular Volume 102.4 fL (80-100); RDW Coefficient of Variation 16.5 % (11.5-14.5); RDW Standard Deviation 61.2 fL (36.4-46.3); Red Blood Count 3.27 M/uL (4.2-5.4); White Blood Count 4.18 K/uL (4.8-10.8)
[2021-06-12 06:33] LABS: Mean Platelet Volume 10.2 fL (7.4-10.4); Platelet Count 82 K/uL (130-400)
[2021-06-12 06:46] LABS: Anion Gap 8 (3-11); BUN Creatinine Ratio 3.9 (10-20); Blood Urea Nitrogen 2 mg/dl (6-23); Calcium 9.1 mg/dl (8.5-10.1); Carbon Dioxide 21 mmol/L (21-32); Chloride 109 mmol/L (98-107); Creatinine Clr Calc Pharmacy 147.8 ml/min; Est GFR (African American) > 150.0 ml/min; Est GFR (Non-African American) 130.9 ml/min; Glucose 106 mg/dl (70-99(Fasting)); Magnesium 1.4 mg/dl (1.7-2.4); Phosphorus 3.1 mg/dl (2.5-4.9); Potassium 3.4 mmol/L (3.5-5.1); Sodium 138 mmol/L (136-145)
[2021-06-12] MEDS: D5W AND NSS 1,000 ML IV SCH (07:24)
[2021-06-12] MEDS: PANTOprazole 40 MG TAB PO SCH (07:25)
[2021-06-12] MEDS: CALCIUM CARBONATE 500 MG CHEWABLE TAB PO SCH ×2 (07:26→22:48)
[2021-06-12] MEDS: FOLIC ACID 1 MG in SYRINGE 9.8 ML IV SCH (07:26)
[2021-06-12] MEDS: THIAMINE HCL 100 MG in SYRINGE 9 ML IV SCH (07:26)
[2021-06-12] MEDS: POTASSIUM CHLORIDE CRTAB 20 MEQ TABCR PO SCH ×2 (08:22→09:42)
[2021-06-12] MEDS: HEPARIN SOD 5,000 UNIT/0.5 ML VIAL SQ SCH ×2 (08:23→20:53)
[2021-06-12] MEDS: MAGNESIUM SULFATE / D5W 1 GM/100 ML BAG IV SCH ×3 (08:23→12:25)
[2021-06-12] MEDS: LORazepam 2 MG/4 ML VIAL IV PRN ×3 (09:48→18:17)
--- NOTE | 2021-06-12 12:20 | Hospitalist Progress Note ---
Date of Service June 12, 2021 Assessment & Plan (1) Alcohol use disorder, severe, dependence: (2) Hypokalemia: (3) Alcohol withdrawal: Plan: 26-year-old female who has significant past medical history of alcohol abuse, chronic thrombocytopenia, pancytopenia, major depressive disorder, history of recurrent alcoholic pancreatitis, history of drug abuse presented to ED 06/08 via EMS for mental health evaluation. She is being managed for the following: #. Alcohol Intoxication #. Alcohol withdrawal Patient drinks a handle of vodka daily, will need alcohol cessation education when more sober and alert History of withdrawal seizure Admitted to PCU AWSS Protocol with gabapentin taper and IV Ativan, patient requiring frequent Ativan doses, likely in withdrawal. IV folic acid and thiamine Received banana bag in ED Eating okay, can DC IV fluids. Continue supportive management. Counseled about alcohol cessation and importance of rehab placement. Patient not interested. See subjective above for further detail. #. Suicidal Ideation Patient with reported suicidal ideation per boyfriend psych input noted, 1:1 not needed, not suicidal any longer, no longer meets 302 criteria History of depression, but currently not taking any medication #. Abdominal Pain- Complaints of pain all over the body but no particular pain on abdominal examination. History of recurrent alcoholic pancreatitis Patient reports abdominal pain, abdomen is soft, questionable tenderness on examination [on/off] Lipase WNL, CT a/p w/o evidence of acute pancreatitis We will continue to monitor. Continue with GI protective medications. Will avoid Motrin or any NSAIDs since on the background of heavy alcohol use and the possibility of gastritis Offered her other pain medications than Tylenol, but denied. #. Hypokalemia #. Hypomagnesemia Repleted, replete and follow as appropriate. #. Pancytopenia with neutropenia- likely bone marrow suppression from alcohol No clear source of infection, may be in setting of alcohol withdrawal Culture results negative, patient received empiric antibiotic, will monitor off of antibiotics. pt will need OP hematology evaluation PCP: Harpreet FULL CODE Dispo: PCU, cleared by psych. Await medical stability. Admission and Anticipated Discharge Date Admission Date: June 08, 2021 Subjective 26-year-old lady with history of alcohol abuse is seen and examined for alcohol withdrawal and suicidal ideation at the bedside. Psychiatry has cleared her off of SI. Patient was lying in bed, on room air, sitting up in bed, looking better than yesterday. She was actually smiling and watching movie over her iPad and at the same time writing on paper. Since over previous days, she was either sleeping or crying whenever woken up for exam and today she was able to communicate more clearly, I talked in detail about her current status and likely stayed there in the room for around 25 minutes with her. For the most duration of our communication, patient was not crying and was clearly communicative. To begin with, patient expressed frustration over the level of care she has been getting while in hospital. She was complaining she was down in the room that was " like hell" in the ED for last 3-4 days and they never gave her another room. She also stated that how all the staff's have been rude to her, and she has filmed (with her iPad) how the rooms are dirty and she was not being taken care of appropriately and she is going to make documentary out of it and will "go out there with it". RN dimension warehouse supervisor Matt made aware. She also stated that, she believes as soon as they noticed her making video she got the room upstairs. I tried to explain her that the beds in PCU status are not easily available due to ongoing current overflow of patients and it might have taken time for the bed to be free and empathized with her that I was sorry that her experiences were not good so far and assured her that we will take care of her going forward. Also we talked about her alcohol/smoking/other substances use history. ~She stated that she has been drinking alcohol since age 11, has started drinking heavily since age 18. She has tried rehab and relapsed 3 times in the past due to multiple reasons. She recently started drinking heavily again due to the formal news of her 's who had been missing since last 7 years per her. She drinks a handle of tequila every day. She is aware that it is a lot of alcohol. She wants to quit alcohol at this time but does not want to go to rehab because she is staying with her friends and states that she is the sole breadwinner for her friends and she cannot afford to go to rehab and not work. Counseled about the importance of rehab, patient seemed uninterested and denied it completely and she started crying. ~She stated that she has been smoking since age 11, has been trying to cut down, currently 6 to 7 cigarettes a day, she has the plan to cut down to 3 to 4 cigarettes a day but has no plan to quit smoking. Counseled about the harms of smoking on health and methods of helping to quit smoking. Patient seemed uninterested and did not want to talk on this topic further. ~Patient denied any use of recreational/illegal drugs. She has been complaining of pain all over the body since last 3 days, has been getting Ativan for alcohol withdrawal, and when I started the topic of pain ma jordan, she started crying again. In the morning today I was paged by RN that patient was complaining of belly pain and wanted Motrin along with other medication questions, I clearly communicated that it is not safe to use Motrin given that she has belly pain on the background of alcohol abuse, the possibility of gastritis causing belly pain cannot be ignored. And it will only worsen the belly pain. Hence, I wanted to make it clear to the patient so that she understands it and explained her the pathophysiology of gastritis in alcoholics and how it will be made worse by any kind of NSAIDs, explained her that she is recently started on GI protective medication and I can offer her a different pain medication other than Tylenol and see if that helps. Patient was crying more now saying that she has pain all over and I tried to calm her down. I left the room saying that I will give her a different pain medication and let the nurse or me know if that would help her or not. Regarding rest of the ROS, she denied any cough/chest pain/palpitation/other review of symptoms. She seems to be eating okay. Her hands are shaking and she is going through withdrawal. Physical Exam Physical Exam: GENERAL: Alert and oriented x3. NAd, on RA. is shaky HEENT: No pallor, no icterus. Pupils equal, round and reactive to light. Oral mucosa moist. NECK: No JVD, no neck masses. HEART: S1 and S2 heard. Regular rate and rhythm. No murmur, no gallop. RESPIRATORY SYSTEM: Normal AP diameter. No accessory muscle use. No wheezing, no crackles. ABDOMEN: Soft, bowel sounds present, ??tender, no distention. CENTRAL NERVOUS SYSTEM: No facial droop. Speech is clear. Obeys simple commands. Moves extremities. EXTREMITIES: No edema, no erythema seen. Hands shaking. Results & Data Results & Data ([facility]) Vital Signs (Past 12 Hours) Vital Signs Temp Pulse Pulse Resp BP BP Pulse Ox 06/12/21 12:11 36.6 C 109 H 18 133/85 99 06/12/21 11:24 36.8 C 93 H 22 123/85 98 06/12/21 09:43 36.7 C 90 22 134/89 99 06/12/21 07:50 96 H 06/12/21 07:28 36.3 C L 96 H 22 126/86 99 06/12/21 06:19 36.4 C L 95 H 20 131/95 100 06/12/21 05:34 128 H 06/12/21 04:57 36.9 C 85 18 113/80 96 06/12/21 02:00 85 18 113/80 97 (1) Alcohol withdrawal Complication of substance-induced condition: uncomplicated Qualified Code(s): F10.230 - Alcohol dependence with withdrawal, uncomplicated
[2021-06-12] MEDS: IBUPROFEN 600 MG TAB PO PRN (12:25)
[2021-06-12] MEDS: LORazepam 3 MG/6 ML VIAL IV PRN (20:35)
[2021-06-13] MEDS: LORazepam 3 MG/6 ML VIAL IV PRN ×8 (00:13→20:19)
[2021-06-13] MEDS ORDERED: OLANZapine 10 MG/2.1 ML SDV IM STA (00:40)
[2021-06-13] MEDS ORDERED: OLANZapine 10 MG/2.1 ML SDV IM PRN (00:57)
[2021-06-13] MEDS ORDERED: PROMETHAZINE HCL 12.5 MG in SODIUM CHLORIDE 0.9% 50 ML IV PRN (01:27)
[2021-06-13] MEDS: ZIPRASIDONE 20 MG/ML SDV IM PRN (01:58)
[2021-06-13 09:34] LABS: Hematocrit (blood only) 37.4 % (37-47); Hemoglobin 12.3 g/dL (12.0-16.0); Mean Corpuscular Hemoglobin 33.8 pg (25-34); Mean Corpuscular Hgb Conc 32.9 g/dL (32-36); Mean Corpuscular Volume 102.7 fL (80-100); Nucleated RBC # (auto) 0.04 K/uL (0-0); Nucleated RBC % (auto) 0.8 %; Platelet Count 118 K/uL (130-400); RDW Coefficient of Variation 16.7 % (11.5-14.5); RDW Standard Deviation 61.4 fL (36.4-46.3); Red Blood Count 3.64 M/uL (4.2-5.4); White Blood Count 4.63 K/uL (4.8-10.8)
[2021-06-13] MEDS: IBUPROFEN 600 MG TAB PO PRN ×2 (09:37→19:31)
[2021-06-13] MEDS: FOLIC ACID 1 MG in SYRINGE 9.8 ML IV SCH (09:43)
[2021-06-13] MEDS: THIAMINE HCL 100 MG in SYRINGE 9 ML IV SCH (09:43)
[2021-06-13] MEDS: PANTOprazole 40 MG TAB PO SCH ×2 (09:47→20:20)
[2021-06-13] MEDS: CALCIUM CARBONATE 500 MG CHEWABLE TAB PO SCH ×2 (09:47→20:21)
[2021-06-13] MEDS: HEPARIN SOD 5,000 UNIT/0.5 ML VIAL SQ SCH (09:49)
[2021-06-13 09:59] LABS: BUN Creatinine Ratio 9.3 (10-20); Calcium 9.6 mg/dl (8.5-10.1); Creatinine Clr Calc Pharmacy 139.6 ml/min; Est GFR (African American) 148.8 ml/min; Est GFR (Non-African American) 128.4 ml/min; Magnesium 1.8 mg/dl (1.7-2.4); Phosphorus 5.2 mg/dl (2.5-4.9); Potassium 3.7 mmol/L (3.5-5.1)
--- NOTE | 2021-06-13 14:35 | Hospitalist Progress Note ---
Date of Service June 13, 2021 Assessment & Plan (1) Suicidal ideation: Plan: Initially presented on a 302 warrant, however, this has been removed by psychiatry. She continues to deny SI or HI. (2) Alcohol withdrawal: Plan: Heavy, chronic alcohol use. Received gabapentin this admission. Cont Ativan PRN. (3) Epigastric pain: Plan: Has had multiple issues with this over the past two years. Has been seen by GI several times. Referred for outpatient EUS and GI followup, however, she has not pursued outpatient followup or EGD per outpatient [facility] records. Possible pancreatitis with elevated heart rate now consistently in the 120-130s today (also influenced by her emotional state). Lipase has been normal this admission so far and CT a/p did not appear consistent with sanna pancreatitis, however, this may be developing. Will start IVF, recheck lipase, monitor LFTs and see if this helps her pain. Not eating much--reports forcing herself to eat. No sanna vomiting that I am aware of. Cont to monitor. Increased PPI to BID with likelihood of alcoholic gastritis. Also added carafate QID. Although Motrin not ideal, she is not overtly bleeding and believes in this medication. (4) Anxiety: Plan: severe, cont Ativan. Patient states that medications for bipolar depression and anxiety in the past have given her hives. 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 (5) Bipolar disorder: Plan: as above. (6) Alcohol use disorder, severe, dependence: Plan: patient given this option of rehab, however, not likely to take it given she states she is the bread winner of her family and needs to work. (7) Marijuana use: Plan: expresses desire to get onto medical marijuana as outpatient as this helps her pain. (8) DVT prophylaxis: Plan: Lovenox Full Code Dispo-to home when medically stable, abdominal pain improved and she i reliably tolerating PO. Bita Eduardo DO [facility] Hospitalist Admission and Anticipated Discharge Date Admission Date: June 08, 2021 Subjective 26 yo F with self reported bipolar disorder with depression admitted for suicidal ideations and alcohol withdrawal today she reports persistent pain in her epigastric region that is improved with motrin she reports tolerating food she has issues with food with a history of eating disorders in the past she is physically curled up with her knees underneath of her on the bed and is crying and shaking almost uncontrollably She is able to get sentences out and is clear in her words and understanding of what is happening She is using profanity and is very upset with "deplorable conditions in the ER" "I found may items on the floor that I could have hurt myself yet they were denying me things like a toothbrush or a pen" "My food was served on the floor", "I wasn't given anything to drink" "when I started filming and telling them that I was going to start a [employer] on the poor conditions I got a bed" "I don't want to take a shower until my hair products arrive from my friend who was supposed to be here days ago!"--starts crying uncontrollably refers to being in the ER holding room as "[place]" Review of Systems Review of Systems: All systems were reviewed and negative except as indicated above with some limitations 2/2 emotional distress present today Physical Exam Physical Exam: CONSTITUTIONAL: WNWD, vitals as above, +emotional distress, periods of uncontrollable crying, straightening her body in anger and gritting her teeth at times EYES: pupils are round and equal bilaterally, normal conjunctivae, no scleral icterus ENT: external ear and nose normal, rings on lip and in nose. NECK: trachea midline RESPIRATORY: clear to auscultation bilaterally, no crackles, rales or wheezes, normal respiratory effort CARDIOVASCULAR: tachy rate and rhythm, S1 and 2 heard without murmurs, gallops or rubs, no JVD, no peripheral edema CHEST: dark brown golfball sized area of ecchymosis on her left anterior chest wall GASTROINTESTINAL: soft, epigastric tenderness to palpation, ND, crying when I push on her abdomen. MUSCULOSKELETAL: strength 5/5 throughout, head is normocephalic and atraumatic, moves around on the bed independently without much issue. SKIN: warm and dry NEUROLOGIC: CN 2-12 grossly intact, normal cognition, normal speech, no obvious tremors but patient is emotional and this is hard to tell completely. No gross focal deficits. PSYCHIATRIC: alert cooperative and oriented to person, place and time. No good eye contact. Language grossly intact, recent and remote memory grossly intact. Results & Data Results & Data ([facility]) Vital Signs (Past 12 Hours) Vital Signs Temp Pulse Pulse Resp BP Pulse Ox 06/13/21 11:52 36.3 C L 127 H 19 115/77 97 06/13/21 08:00 116 H Laboratory Results Short CBC 06/13/21 Range/Units 09:23 WBC 4.63 L (4.8-10.8) K/uL Hgb 12.3 (12.0-16.0) g/dL Hct 37.4 (37-47) % Plt Count 118 L (130-400) K/uL BMP 06/13/21 09:23 Sodium 142 Potassium 3.7 Chloride 109 H Carbon Dioxide 25 BUN 5 L Creatinine 0.54 L Glucose 96 Calcium 9.6 Medications Administered Current Inpatient Medications Acetaminophen (Acetaminophen 325 Mg Tab) 650 mg PO Q4H PRN PRN Reason: Pain or Fever Stop: 07/08/21 10:16 Last Admin: 06/12/21 05:27 Dose: 650 mg Documented by: Al Hydrox/Mg Hydrox/Simethicone (Aluminum/Magnesium Susp 30 Ml Udc) 15 ml PO Q4H PRN PRN Reason: Dyspepsia Stop: 07/08/21 10:16 Calcium Carbonate (Calcium Carbonate 500 Mg Chewable Tab) 1,000 mg PO BID [facility] Stop: 06/16/21 08:59 Last Admin: 06/13/21 09:47 Dose: 1,000 mg Documented by: Dextrose (Dextrose 50% 50 Ml Syringe) 25 - 50 ml IV UD PRN; Protocol PRN Reason: Hypoglycemia Protocol Stop: 07/08/21 15:17 Folic Acid (Folic Acid 1 Mg Tab) 1 mg PO QAM CHUN Stop: 07/14/21 08:59 Glucagon (Glucagon For Inj 1 Mg Vial) 1 mg SQ UD PRN; Protocol PRN Reason: Hypoglycemia Protocol Stop: 07/08/21 15:17 Glucose (Glucose 10 Tabs/Tube) 4 - 8 tabs PO UD PRN; Protocol PRN Reason: Hypoglycemia Protocol Stop: 07/08/21 15:17 Glucose (Glucose 40% Gel 15 Gm Tube) 15 - 30 gm PO UD PRN; Protocol PRN Reason: Hypoglycemia Protocol Stop: 07/08/21 15:17 Heparin Sodium (Porcine) (Heparin Sod 5,000 Unit/0.5 Ml Vial) 5,000 units SQ Q12 CHUN Stop: 07/12/21 08:59 Last Admin: 06/13/21 09:49 Dose: 5,000 units Documented by: Lorazepam (Ativan) 1 mg in 2 mls @ 2 mls/min IV UD PRN; Protocol PRN Reason: EtOH Withdrawl AWSS Score 6,7 Stop: 07/08/21 10:16 Last Admin: 06/12/21 07:37 Dose: 2 mls/min Documented by: Lorazepam (Ativan) 2 mg in 4 mls @ 4 mls/min IV UD PRN; Protocol PRN Reason: EtOH Withdrawl AWSS Score 8,9 Stop: 07/08/21 10:16 Last Admin: 06/12/21 18:17 Dose: 4 mls/min Documented by: Lorazepam (Ativan) 3 mg in 6 mls @ 4 mls/min IV ONCE PRN; Protocol PRN Reason: EtOH Withdrawl AWSS Score >=10 Stop: 07/08/21 10:16 Last Admin: 06/13/21 14:29 Dose: 4 mls/min Documented by: Ibuprofen (Ibuprofen 600 Mg Tab) 600 mg PO Q8H PRN PRN Reason: pain Stop: 07/12/21 10:43 Last Admin: 06/13/21 09:37 Dose: 600 mg Documented by: Magnesium Hydroxide (Magnesium Hydroxide Susp 30 Ml Udc) 30 ml PO Q12H PRN PRN Reason: Constipation Stop: 07/08/21 10:16 Miscellaneous (Carbohydrates For Hypoglycemia ) 15 - 30 gm PO UD PRN PRN Reason: Hypoglycemia Protocol Stop: 07/08/21 15:17 Pantoprazole Sodium (Pantoprazole 40 Mg Tab) 40 mg PO [facility] Stop: 07/11/21 08:59 Last Admin: 06/13/21 09:47 Dose: 40 mg Documented by: Polyethylene Glycol (Polyethylene (Miralax) 17 Gm Pack) 17 gm PO DAILY PRN PRN Reason: Constipation Stop: 07/08/21 10:16 Promethazine HCl (Promethazine Hcl 25 Mg Tab) 25 mg PO Q6H PRN PRN Reason: Nausea And Vomiting Stop: 07/13/21 13:53 Thiamine HCl (Thiamine Hcl 100 Mg Tab) [facility] Stop: 07/14/21 08:59 Ziprasidone (Ziprasidone 20 Mg/Ml Sdv) 10 mg IM Q6H PRN PRN Reason: Anxiety/Agitation Stop: 07/13/21 01:29 Last Admin: 06/13/21 01:58 Dose: 10 mg Documented by: (1) Alcohol withdrawal Complication of substance-induced condition: uncomplicated Qualified Code(s): F10.230 - Alcohol dependence with withdrawal, uncomplicated
[2021-06-13] MEDS ORDERED: LACTATED RINGER'S 1,000 ML IV ONE (14:44)
[2021-06-13] MEDS: LACTATED RINGER'S 1,000 ML IV SCH (17:23)
[2021-06-13] MEDS: SUCRALFATE 1 GM/10 ML UDC PO SCH ×2 (17:32→20:21)
[2021-06-14] MEDS: LORazepam 3 MG/6 ML VIAL IV PRN ×4 (00:06→10:38)
[2021-06-14] MEDS: LACTATED RINGER'S 1,000 ML IV SCH ×3 (00:06→11:18)
[2021-06-14] MEDS: ZIPRASIDONE 20 MG/ML SDV IM PRN (02:55)
[2021-06-14 05:47] LABS: Hematocrit (blood only) 30.9 % (37-47); Mean Corpuscular Hemoglobin 33.2 pg (25-34); Mean Corpuscular Hgb Conc 32.4 g/dL (32-36); Mean Corpuscular Volume 102.7 fL (80-100); Mean Platelet Volume 9.5 fL (7.4-10.4); Platelet Count 138 K/uL (130-400); RDW Standard Deviation 63.8 fL (36.4-46.3); Red Blood Count 3.01 M/uL (4.2-5.4); White Blood Count 4.19 K/uL (4.8-10.8)
[2021-06-14 06:06] LABS: Anion Gap 6 (3-11); Blood Urea Nitrogen 6 mg/dl (6-23); Calcium 8.5 mg/dl (8.5-10.1); Carbon Dioxide 24 mmol/L (21-32); Chloride 112 mmol/L (98-107); Creatinine Clr Calc Pharmacy 163.8 ml/min; Est GFR (African American) > 150.0 ml/min; Est GFR (Non-African American) 135.4 ml/min; Glucose 89 mg/dl (70-99(Fasting)); Lipase 32 U/L (11-82); Magnesium 1.5 mg/dl (1.7-2.4); Phosphorus 4.5 mg/dl (2.5-4.9); Potassium 3.4 mmol/L (3.5-5.1); Sodium 142 mmol/L (136-145)
[2021-06-14 07:04] LABS: Albumin Level 3.4 gm/dl (3.4-5.0); Bilirubin Direct 0.1 mg/dl (0-0.2); Bilirubin,Total 0.6 mg/dl (0.2-1.0); Total Protein 5.6 gm/dl (6.0-8.3)
[2021-06-14] MEDS: IBUPROFEN 600 MG TAB PO PRN (10:42)
[2021-06-14] MEDS: SUCRALFATE 1 GM/10 ML UDC PO SCH ×4 (10:43→21:54)
[2021-06-14] MEDS: THIAMINE HCL 100 MG TAB PO SCH (10:43)
[2021-06-14] MEDS: PANTOprazole 40 MG TAB PO SCH ×2 (10:43→21:54)
[2021-06-14] MEDS: FOLIC ACID 1 MG TAB PO SCH (10:44)
[2021-06-14] MEDS: ENOXAPARIN INJ 40 MG/0.4 ML SYR SQ SCH (10:45)
[2021-06-14] MEDS: CALCIUM CARBONATE 500 MG CHEWABLE TAB PO SCH ×2 (11:17→22:00)
[2021-06-14] MEDS: MAGNESIUM SULFATE / D5W 1 GM/100 ML BAG IV SCH ×2 (12:17→14:28)
[2021-06-14] MEDS: LORazepam 0.5 MG TAB PO PRN ×2 (12:26→19:37)
--- NOTE | 2021-06-14 12:52 | Hospitalist Progress Note ---
Date of Service June 14, 2021 Assessment & Plan (1) Suicidal ideation: Plan: Initially presented on a 302 warrant, however, this has been removed by psychiatry. She continues to deny SI or HI. (2) Alcohol withdrawal: Plan: Resolved. Heavy, chronic alcohol use. Received gabapentin and Ativan this admission. (3) Epigastric pain: Plan: Has had multiple issues with this over the past two years. Has been seen by GI several times. Referred for outpatient EUS and GI followup, however, she has not pursued outpatient followup or EGD per outpatient [facility] records. Pain still present and she is eating. Improved with IVF. Cont BID PPI and Carafate for now. Motrin PRN. (4) Anxiety: Plan: severe, cont Ativan as needed but will convert to PO version. She reports SSRIs made her feel poorly in the past but has done well with Buspar, so will start th is now. Psych liaison to help with coping. (5) Bipolar disorder: Plan: as above. Defer long-term management to her outpatient mental health team. (6) Alcohol use disorder, severe, dependence: Plan: patient given this option of rehab, however, not likely to take it given she states she is the bread winner of her family and needs to work. (7) Marijuana use: Plan: expresses desire to get onto medical marijuana as outpatient as this helps her pain. (8) DVT prophylaxis: Plan: Lovenox stopped as she is ambulatory Full Code Dispo-transfer to floor. Doesn't want to go home until her anxiety is improved. Bita Eduardo DO [facility] Hospitalist Admission and Anticipated Discharge Date Admission Date: June 08, 2021 Subjective 26 yo F with self reported bipolar disorder with depression admitted for suicidal ideations and alcohol withdrawal heart rate and blood pressure have normalized after IVF overnight received Ativan overnight and Geodon all for anxiety that she reports is very uncontrolled seems to be driven by her recent boyfriend who still lives with her she reports "everything hurts" but it seems her stomach is feeling better today she was able to eat "all of my breakfast" she was pacing around the room and reported not being able to lie down for an abdominal exam for me because "my sheets are wet because I pissed myself" she stood for the exam and when I went to leave, got to her knees on the edge of the bed and started sobbing uncontrollably. I asked her if she wanted to speak with the psych liaison, and she agreed that might be helpful RN updated. Review of Systems Review of Systems: All systems were reviewed and negative except as indicated above Physical Exam Physical Exam: CONSTITUTIONAL: WNWD, vitals as above, NAD, ambulating around the room, able to maneuver her IV pole around the room. EYES: pupils are round and equal bilaterally, normal conjunctivae, no scleral icterus ENT: external ear and nose normal, rings on lip and in nose. NECK: trachea midline RESPIRATORY: clear to auscultation bilaterally, no crackles, rales or wheezes, normal respiratory effort CARDIOVASCULAR: reg rate and rhythm, S1 and 2 heard without murmurs, gallops or rubs, no JVD, no peripheral edema CHEST: dark brown golfball sized area of ecchymosis on her left anterior chest wall GASTROINTESTINAL: soft, generalized abdominal tenderness, nondistended. MUSCULOSKELETAL: strength 5/5 throughout, ambulates independently SKIN: warm and dry NEUROLOGIC: CN 2-12 grossly intact, normal cognition, normal speech, no tremors. No gross focal deficits. PSYCHIATRIC: alert cooperative and oriented to person, place and time. No good eye contact. Language grossly intact, recent and remote memory grossly intact. Results & Data Results & Data ([facility]) Vital Signs (Past 12 Hours) Vital Signs Temp Pulse Pulse Resp BP Pulse Ox 06/14/21 12:00 36.9 C 69 18 106/80 95 06/14/21 08:00 36.9 C 76 18 121/60 96 06/14/21 07:34 81 06/14/21 03:30 109 H 18 121/69 99 Laboratory Results Short CBC 06/14/21 Range/Units 05:25 WBC 4.19 L (4.8-10.8) K/uL Hgb 10.0 L (12.0-16.0) g/dL Hct 30.9 L (37-47) % Plt Count 138 (130-400) K/uL BMP 06/14/21 05:25 Sodium 142 Potassium 3.4 L Chloride 112 H Carbon Dioxide 24 BUN 6 Creatinine 0.46 L Glucose 89 Calcium 8.5 Liver Function 06/14/21 Range/Units 05:25 Total Bilirubin 0.6 (0.2-1.0) mg/dl Direct Bilirubin 0.1 (0-0.2) mg/dl AST 17 (13-39) U/L ALT 16 (7-52) U/L Alkaline Phosphatase 34 (34-104) U/L Albumin 3.4 (3.4-5.0) gm/dl Medications Administered Current Inpatient Medications Acetaminophen (Acetaminophen 325 Mg Tab) 650 mg PO Q4H PRN PRN Reason: Pain or Fever Stop: 07/08/21 10:16 Last Admin: 06/12/21 05:27 Dose: 650 mg Documented by: Al Hydrox/Mg Hydrox/Simethicone (Aluminum/Magnesium Susp 30 Ml Udc) 15 ml PO Q4H PRN PRN Reason: Dyspepsia Stop: 07/08/21 10:16 Buspirone HCl (Buspirone 5 Mg Tab) 5 mg PO TID [facility] Stop: 07/14/21 13:59 Calcium Carbonate (Calcium Carbonate 500 Mg Chewable Tab) 1,000 mg PO BID [facility] Stop: 06/16/21 08:59 Last Admin: 06/14/21 11:17 Dose: 1,000 mg Documented by: Dextrose (Dextrose 50% 50 Ml Syringe) 25 - 50 ml IV UD PRN; Protocol PRN Reason: Hypoglycemia Protocol Stop: 07/08/21 15:17 Enoxaparin Sodium (Enoxaparin Inj 40 Mg/0.4 Ml Syr) 40 mg SQ QAM [facility] Stop: 07/14/21 08:59 Last Admin: 06/14/21 10:45 Dose: 40 mg Documented by: Folic Acid (Folic Acid 1 Mg Tab) 1 mg PO QAM [facility] Stop: 07/14/21 08:59 Last Admin: 06/14/21 10:44 Dose: 1 mg Documented by: Glucagon (Glucagon For Inj 1 Mg Vial) 1 mg SQ UD PRN; Protocol PRN Reason: Hypoglycemia Protocol Stop: 07/08/21 15:17 Glucose (Glucose 10 Tabs/Tube) 4 - 8 tabs PO UD PRN; Protocol PRN Reason: Hypoglycemia Protocol Stop: 07/08/21 15:17 Glucose (Glucose 40% Gel 15 Gm Tube) 15 - 30 gm PO UD PRN; Protocol PRN Reason: Hypoglycemia Protocol Stop: 07/08/21 15:17 Magnesium Sulfate/Dextrose (Magnesium Sulfate / D5w) 1 gm in 100 mls @ 50 mls/hr IV Q2H [facility] Stop: 06/14/21 15:44 Last Admin: 06/14/21 12:17 Dose: 50 mls/hr Documented by: Ibuprofen (Ibuprofen 600 Mg Tab) 600 mg PO Q8H PRN PRN Reason: pain Stop: 07/12/21 10:43 Last Admin: 06/14/21 10:42 Dose: 600 mg Documented by: Lorazepam (Lorazepam 0.5 Mg Tab) 0.5 mg PO Q8H PRN PRN Reason: Anxiety Stop: 07/14/21 11:54 Last Admin: 06/14/21 12:26 Dose: 0.5 mg Documented by: Magnesium Hydroxide (Magnesium Hydroxide Susp 30 Ml Udc) 30 ml PO Q12H PRN PRN Reason: Constipation Stop: 07/08/21 10:16 Magnesium Oxide (Magnesium Oxide 400 Mg Tab) 400 mg PO BID [facility] Stop: 07/14/21 20:59 Miscellaneous (Carbohydrates For Hypoglycemia ) 15 - 30 gm PO UD PRN PRN Reason: Hypoglycemia Protocol Stop: 07/08/21 15:17 Pantoprazole Sodium (Pantoprazole 40 Mg Tab) 40 mg PO BID [facility] Stop: 07/13/21 20:59 Last Admin: 06/14/21 10:43 Dose: 40 mg Documented by: Polyethylene Glycol (Polyethylene (Miralax) 17 Gm Pack) 17 gm PO DAILY PRN PRN Reason: Constipation Stop: 07/08/21 10:16 Promethazine HCl (Promethazine Hcl 25 Mg Tab) 25 mg PO Q6H PRN PRN Reason: Nausea And Vomiting Stop: 07/13/21 13:53 Sucralfate (Sucralfate 1 Gm/10 Ml Udc) 1 gm PO QID [facility] Stop: 06/16/21 16:59 Last Admin: 06/14/21 10:43 Dose: 1 gm Documented by: Thiamine HCl (Thiamine Hcl 100 Mg Tab) 100 mg PO QAM [facility] Stop: 07/14/21 08:59 Last Admin: 06/14/21 10:43 Dose: 100 mg Documented by: Ziprasidone (Ziprasidone 20 Mg/Ml Sdv) 10 mg IM Q6H PRN PRN Reason: Anxiety/Agitation Stop: 07/13/21 01:29 Last Admin: 06/14/21 02:55 Dose: 10 mg Documented by: (1) Alcohol withdrawal Complication of substance-induced condition: uncomplicated Qualified Code(s): F10.230 - Alcohol dependence with withdrawal, uncomplicated
[2021-06-14] MEDS: busPIRone 5 MG TAB PO SCH ×2 (14:39→21:53)
[2021-06-14] MEDS ORDERED: diphenhydrAMINE 50 MG/ML VIAL IV STA (21:13)
[2021-06-14] MEDS: MAGNESIUM OXIDE 400 MG TAB PO SCH (21:53)
[2021-06-15] MEDS: LORazepam 0.5 MG TAB PO PRN ×3 (03:29→19:52)
[2021-06-15] MEDS: PANTOprazole 40 MG TAB PO SCH ×2 (08:48→20:49)
[2021-06-15] MEDS: MAGNESIUM OXIDE 400 MG TAB PO SCH ×2 (08:48→20:47)
[2021-06-15] MEDS: ENOXAPARIN INJ 40 MG/0.4 ML SYR SQ SCH (08:49)
[2021-06-15] MEDS: FOLIC ACID 1 MG TAB PO SCH (08:49)
[2021-06-15] MEDS: THIAMINE HCL 100 MG TAB PO SCH (08:50)
[2021-06-15] MEDS: SUCRALFATE 1 GM/10 ML UDC PO SCH ×4 (08:50→20:49)
[2021-06-15] MEDS: busPIRone 5 MG TAB PO SCH ×3 (08:51→20:47)
[2021-06-15] MEDS: PROMETHAZINE HCL 25 MG TAB PO PRN ×2 (08:52→23:04)
[2021-06-15] MEDS: CALCIUM CARBONATE 500 MG CHEWABLE TAB PO SCH ×2 (10:07→20:47)
--- NOTE | 2021-06-15 14:46 | Hospitalist Progress Note ---
Date of Service June 15, 2021 Assessment & Plan (1) Suicidal ideation: Plan: Initially presented on a 302 warrant, however, this has been removed by psychiatry. She continues to deny SI or HI. Resolved. (2) Alcohol withdrawal: Plan: Resolved. Heavy, chronic alcohol use. Received gabapentin and Ativan this admission. Current clinical picture is consistent with severe anxiety. (3) Epigastric pain: Plan: Has had multiple issues with this over the past two years. Has been seen by GI several times. Referred for outpatient EUS and GI followup, however, she has not pursued outpatient followup or EGD per outpatient [facility] records. Pain still present and she is eating. IVF were given for a couple of days which impro bob her pain and her heart rate. Cont BID PPI and Carafate for now. Motrin PRN. (4) Anxiety: Plan: severe, cont PO Ativan as needed and Buspar. She reports SSRIs made her feel poorly in the past but has done well with Buspar, so will start this now. Psych liaison to help with coping. (5) Bipolar disorder: Plan: as above. 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 (6) Alcohol use disorder, severe, dependence: Plan: patient given this option of rehab, however, not likely to take it given she states she is the bread winner of her family and needs to work. (7) Marijuana use: Plan: expresses desire to get onto medical marijuana as outpatient as this helps her pain. (8) DVT prophylaxis: Plan: Lovenox stopped as she is ambulatory Full Code Dispo-cont hospitalization until anxiety is more controlled and she has a safe disposition. Bita Eduardo DO [facility] Hospitalist Admission and Anticipated Discharge Date Admission Date: June 08, 2021 Subjective 26 yo F with self reported bipolar disorder with depression admitted for suicidal ideations and alcohol withdrawal still with excessive crying and anxiety tday but she is better reports pain all over her body but this is improved making eye contact with me more today she is not allowed to return to her house and is trying to find a home to go live in when she is discharged. Cried almost the whole time I was in the room Reports buspar and Ativan are helping. Review of Systems Review of Systems: All systems were reviewed and negative except as indicated above. Physical Exam Physical Exam: CONSTITUTIONAL: WNWD, vitals as above, NAD, emotional and crying but improved. EYES: normal conjunctivae, no scleral icterus ENT: external ear and nose normal, rings on lip and in nose. NECK: trachea midline RESPIRATORY: clear to auscultation bilaterally, no crackles, rales or wheezes, normal respiratory effort CARDIOVASCULAR: reg rate and rhythm, S1 and 2 heard without murmurs, gallops or rubs, no JVD, no peripheral edema CHEST: dark brown golfball sized area of ecchymosis on her left anterior chest wall and on her lower abdomen. GASTROINTESTINAL: soft, generalized abdominal tenderness, nondistended. MUSCULOSKELETAL: strength 5/5 throughout, ambulates independently SKIN: warm and dry NEUROLOGIC: CN 2-12 grossly intact, normal cognition, normal speech, no tremors. No gross focal deficits. PSYCHIATRIC: alert cooperative and oriented to person, place and time. No good eye contact. Language grossly intact, recent and remote memory grossly intact. Results & Data Results & Data ([facility] [place]) Vital Signs (Past 12 Hours) Vital Signs Temp Pulse Resp BP Pulse Ox 06/15/21 07:41 36.8 C 88 16 103/67 99 Medications Administered Current Inpatient Medications Acetaminophen (Acetaminophen 325 Mg Tab) 650 mg PO Q4H PRN PRN Reason: Pain or Fever Stop: 07/08/21 10:16 Last Admin: 06/12/21 05:27 Dose: 650 mg Documented by: Al Hydrox/Mg Hydrox/Simethicone (Aluminum/Magnesium Susp 30 Ml Udc) 15 ml PO Q4H PRN PRN Reason: Dyspepsia Stop: 07/08/21 10:16 Buspirone HCl (Buspirone 5 Mg Tab) 5 mg PO TID [facility] Stop: 07/14/21 13:59 Last Admin: 06/15/21 13:13 Dose: 5 mg Documented by: Calcium Carbonate (Calcium Carbonate 500 Mg Chewable Tab) 1,000 mg PO BID [facility] Stop: 06/16/21 08:59 Last Admin: 06/15/21 10:07 Dose: 1,000 mg Documented by: Dextrose (Dextrose 50% 50 Ml Syringe) 25 - 50 ml IV UD PRN; Protocol PRN Reason: Hypoglycemia Protocol Stop: 07/08/21 15:17 Enoxaparin Sodium (Enoxaparin Inj 40 Mg/0.4 Ml Syr) 40 mg SQ QAM [facility] Stop: 07/14/21 08:59 Last Admin: 06/15/21 08:49 Dose: 40 mg Documented by: Folic Acid (Folic Acid 1 Mg Tab) 1 mg PO QAM [facility] Stop: 07/14/21 08:59 Last Admin: 06/15/21 08:49 Dose: 1 mg Documented by: Glucagon (Glucagon For Inj 1 Mg Vial) 1 mg SQ UD PRN; Protocol PRN Reason: Hypoglycemia Protocol Stop: 07/08/21 15:17 Glucose (Glucose 10 Tabs/Tube) 4 - 8 tabs PO UD PRN; Protocol PRN Reason: Hypoglycemia Protocol Stop: 07/08/21 15:17 Glucose (Glucose 40% Gel 15 Gm Tube) 15 - 30 gm PO UD PRN; Protocol PRN Reason: Hypoglycemia Protocol Stop: 07/08/21 15:17 Ibuprofen (Ibuprofen 600 Mg Tab) 600 mg PO Q8H PRN PRN Reason: pain Stop: 07/12/21 10:43 Last Admin: 06/14/21 10:42 Dose: 600 mg Documented by: Lorazepam (Lorazepam 0.5 Mg Tab) 0.5 mg PO Q8H PRN PRN Reason: Anxiety Stop: 07/14/21 11:54 Last Admin: 06/15/21 12:12 Dose: 0.5 mg Documented by: Magnesium Hydroxide (Magnesium Hydroxide Susp 30 Ml Udc) 30 ml PO Q12H PRN PRN Reason: Constipation Stop: 07/08/21 10:16 Magnesium Oxide (Magnesium Oxide 400 Mg Tab) 400 mg PO BID [facility] Stop: 07/14/21 20:59 Last Admin: 06/15/21 08:48 Dose: 400 mg Documented by: Miscellaneous (Carbohydrates For Hypoglycemia ) 15 - 30 gm PO UD PRN PRN Reason: Hypoglycemia Protocol Stop: 07/08/21 15:17 Pantoprazole Sodium (Pantoprazole 40 Mg Tab) 40 mg PO BID [facility] Stop: 07/13/21 20:59 Last Admin: 06/15/21 08:48 Dose: 40 mg Documented by: Polyethylene Glycol (Polyethylene (Miralax) 17 Gm Pack) 17 gm PO DAILY PRN PRN Reason: Constipation Stop: 07/08/21 10:16 Promethazine HCl (Promethazine Hcl 25 Mg Tab) 25 mg PO Q6H PRN PRN Reason: Nausea And Vomiting Stop: 07/13/21 13:53 Last Admin: 06/15/21 08:52 Dose: 25 mg Documented by: Sucralfate (Sucralfate 1 Gm/10 Ml Udc) 1 gm PO QID [facility] Stop: 06/16/21 16:59 Last Admin: 06/15/21 12:12 Dose: 1 gm Documented by: Thiamine HCl (Thiamine Hcl 100 Mg Tab) 100 mg PO QAM [facility] Stop: 07/14/21 08:59 Last Admin: 06/15/21 08:50 Dose: 100 mg Documented by: Ziprasidone (Ziprasidone 20 Mg/Ml Sdv) 10 mg IM Q6H PRN PRN Reason: Anxiety/Agitation Stop: 07/13/21 01:29 Last Admin: 06/14/21 02:55 Dose: 10 mg Documented by: (1) Alcohol withdrawal Complication of substance-induced condition: uncomplicated Qualified Code(s): F10.230 - Alcohol dependence with withdrawal, uncomplicated
[2021-06-15] MEDS ORDERED: LORazepam 0.5 MG TAB PO STA (17:22)
[2021-06-15] MEDS ORDERED: ACETAMINOPHEN 1,000 MG/100 ML VIAL IV ONE (19:45)
[2021-06-15 20:13] LABS: Basophils # (auto) 0.02 K/uL (0-0.2); Basophils % (auto) 0.5 %; Eosinophils # (auto) 0.05 K/uL (0-0.5); Eosinophils % (auto) 1.3 %; Hemoglobin 10.9 g/dL (12.0-16.0); Immature Granulocytes # (auto) 0.06 K/uL (0.00-0.02); Immature Granulocytes % (auto) 1.6 %; Lymphocytes # (auto) 1.56 K/uL (1.2-3.4); Lymphocytes % (auto) 41.2 %; Mean Corpuscular Hemoglobin 32.9 pg (25-34); Mean Corpuscular Hgb Conc 32.1 g/dL (32-36); Mean Corpuscular Volume 102.7 fL (80-100); Mean Platelet Volume 8.8 fL (7.4-10.4); Monocytes # (auto) 0.82 K/uL (0.11-0.59); Monocytes % (auto) 21.6 %; Neutrophils # (auto) 1.28 K/uL (1.4-6.5); Neutrophils % (auto) 33.8 %; Platelet Count 220 K/uL (130-400); RDW Coefficient of Variation 16.8 % (11.5-14.5); RDW Standard Deviation 63.4 fL (36.4-46.3); Red Blood Count 3.31 M/uL (4.2-5.4); White Blood Count 3.79 K/uL (4.8-10.8)
[2021-06-15 20:51] LABS: Albumin Globulin Ratio 1.6 (0.9-2); Albumin Level 4.1 gm/dl (3.4-5.0); BUN Creatinine Ratio 7.5 (10-20); Bilirubin,Total 0.5 mg/dl (0.2-1.0); Calcium 9.4 mg/dl (8.5-10.1); Creatinine Clr Calc Pharmacy 142.2 ml/min; Est GFR (African American) 149.8 ml/min; Est GFR (Non-African American) 129.2 ml/min; Globulin 2.6 gm/dl (2.5-4.0); Magnesium 1.7 mg/dl (1.7-2.4); Potassium 3.9 mmol/L (3.5-5.1); Total Protein 6.7 gm/dl (6.0-8.3)
[2021-06-15] MEDS ORDERED: OPTIRAY 320 100ml IV ONE (21:34)
[2021-06-15] MEDS ORDERED: diphenhydrAMINE Capsule 25 MG CAP PO ONE (21:49)
[2021-06-15 22:22] LABS: Appearance Urine Clear (Clear); Bilirubin Urine Negative (Negative); Blood Urine Negative (Negative); Color Urine Yellow; Glucose Urine UA Negative (Negative); Ketones Urine Negative (Negative); Leukocyte Esterase Urine Negative (Negative); Nitrite Urine Negative (Negative); Protein Urine Negative (Negative); Specific Gravity Urine 1.045 (1.000-1.030); Urobilinogen Urine Negative (Negative); pH Urine 6.5 (4.5-7.5)
[2021-06-15] MEDS: IBUPROFEN 600 MG TAB PO PRN (23:03)
[2021-06-16] MEDS: LORazepam 0.5 MG TAB PO PRN ×2 (04:37→17:10)
--- NOTE | 2021-06-16 08:02 | CT Scan Report ---
CT abd pelvis IV con only CLINICAL HISTORY: worsening abd pain COMPARISON STUDY: 06/07/2021 CT DOSE: 283.30 mGy.cm TECHNIQUE: Standard CT of the Abdomen and Pelvis was performed with IV contrast. A dose lowering key hnique was utilized adhering to the principles of ALARA. Contrast Volume: Optiray 320, 96 ml. The patient did not receive oral contrast. FINDINGS: Lung base: The lung bases are clear. Abdominal cavity: There is no evidence for abdominal mass, adenopathy or ascites. Liver: There is homogeneous attenuation of the liver parenchyma. There is no evidence for enhancing m ass lesion. Spleen: There is homogeneous attenuation of the splenic parenchyma. There is no enhancing mass lesion . Pancreas: There is homogeneous attenuation of the pancreatic parenchyma. There is no evidence for mas s lesion or peripancreatic fluid collection. Gall Bladder: There is contraction of the gallbladder due to the patient's nonfasting state. Adrenal glands: The adrenal glands are normal in size and attenuation. There is no evidence for enhan cing mass lesion. Kidneys: There is homogeneous attenuation of the renal parenchyma bilaterally. There is no evidence f or renal calculus or hydronephrosis. There is no evidence for enhancing mass. Bowel: The stomach is grossly distended with liquid and food stuff. The bowel loops are normally plac ed within the abdomen and pelvis without evidence for dilatation or obstruction. There is no evidence for mass lesion. There are no inflammatory changes present. There is no evidence for free air. There is a normal appendix in the right lower quadrant. Bladder: The bladder is within normal limits with no evidence for focal mass, calculus or diverticulu m. : There is no evidence for pelvic mass or adenopathy. There is no evidence for pelvic ascites. Vasculature: There is no evidence for aneurysmal dilatation of the abdominal aorta. Osseous structures: There is no acute osseous pathology. IMPRESSION: 1. No acute intra-abdominal or pelvic abnormality. No significant interval change. 2. Nonacute findings are delineated above. ACT 112: Negative or not required by law. Electronically signed by: Rusty Hanna M.D. 06/16/2021 8:01 AM
[2021-06-16] MEDS: IBUPROFEN 600 MG TAB PO PRN (08:30)
[2021-06-16] MEDS: PROMETHAZINE HCL 25 MG TAB PO PRN (08:42)
[2021-06-16] MEDS: FOLIC ACID 1 MG TAB PO SCH (09:18)
[2021-06-16] MEDS: busPIRone 5 MG TAB PO SCH ×3 (09:18→21:03)
[2021-06-16] MEDS: THIAMINE HCL 100 MG TAB PO SCH (09:19)
[2021-06-16] MEDS: MAGNESIUM OXIDE 400 MG TAB PO SCH ×2 (09:19→21:03)
[2021-06-16] MEDS: SUCRALFATE 1 GM/10 ML UDC PO SCH ×2 (09:19→12:48)
[2021-06-16] MEDS: PANTOprazole 40 MG TAB PO SCH ×2 (09:19→21:01)
--- NOTE | 2021-06-16 10:54 | Psychiatric Progress Note ---
Date of Service June 16, 2021 Impression / Recommendations Impression 26 yo female with hx of anxiety and probable bipolar dx if not related to personality disorder with limited coping skills outside of Eto[facility] and "I just want medical MJ". (1) Alcohol use disorder, severe, dependence: (2) Unspecified mood [affective] disorder: she is continuing to state she will f/u with [facility] I agree she is continuing to deny SI and does not meet criteria under [place] mental health law for 302 commitment she is receiving some benefit from Buspar and dose increased to 10 mg TID benadryl 25 mg IV is low risk and likely to help for acute anxiety/irritability and non specific allergy symptoms and approved by Dr. Eduardo, better option than prn Ativan. Risk Factors Assessment Do You Have Access To A Gun?: No Mental Health Diagnoses: Yes Substance Use Disorders: Yes Previous Attempt: No Hopelessness: No Protective Factors Assessment Stable Relationships: Yes Interval History Identifying Information Zahida is a 26 yo woman with a history of BPAD II, depression, anxiety, alcohol use disorder, marijuana use, recurrent pancreatitis, thrombocytopenia admitted medically for complicated alcohol withdrawal. Psychiatry was consulted earlier in stay for recs and was seen by Dr. Dickerson. Chief Complaint "No one listens, I miss my family, they are all , my nurse is terrible". Review of Systems Notes unreliable supervisor finishing room as was in bed eating lunch and watchin IPAD comfortably and immediately wailed/weeped in pain when I approached. She was apologetic at times but continued to complain about various aspects of care and how misunderstood she is. Subjective Subjective Patient was seen & assessed and interval progress reviewed with nursing and Dr. Eduardo. Patient has completed detox and has difficulty coping with anxiety, continues to refuse inpatient rehab services as "I got too much shit going on" and states she feels agitated, "like my skin is itching and burning". She is not interested in discussing non-pharmacologic interventions. Had requested Ativan from liaison nurse with whom she was quite uncooperative. Now states IV Benadryl helps and likes Buspar despite having "a reaction to every psych med they try to put me on". Physical Exam Psychiatric Orientation: alert and oriented x 3 Apperance: + disheveled Eye Contact: + fair eye contact Motor Behavior: no abnormal motor movements Speech: normal rate/rhythm/volume of speech (brief, loud) Affect: + tearful affect (reports feeling pain due to withdrawal symptoms) Mood: + depressed mood, + anxious mood and + irritable mood Thought Process: + concrete thought process Thought Content: reality based without delusions Suicidal Thoughts: denies suicidal thoughts Homicidal Thoughts: denies homicidal thoughts Hallucinations: no auditory hallucinations and no visual hallucinations Vital Signs (Past 24 Hours) Last Vital Signs Temp 37.0 C 06/16/21 07:18 Pulse 92 H 06/16/21 07:18 Resp 16 06/16/21 07:18 BP 107/71 06/16/21 07:18 Pulse Ox 100 06/16/21 07:18 Results & Data ([facility]) Laboratory Results Laboratory Results - last 24 hr 06/15/21 06/15/21 06/15/21 20:03 20:03 22:00 WBC 3.79 L RBC 3.31 L Hgb 10.9 L Hct 34.0 L MCV 102.7 H MCH 32.9 MCHC 32.1 RDW Std Deviation 63.4 H RDW Coeff of Nayana 16.8 H Plt Count 220 D MPV 8.8 Immature Gran % (Auto) 1.6 Neut % (Auto) 33.8 Lymph % (Auto) 41.2 [place] % (Auto) 21.6 Eos % (Auto) 1.3 Baso % (Auto) 0.5 Neut # (Auto) 1.28 L Lymph # (Auto) 1.56 [place] # (Auto) 0.82 H Eos # (Auto) 0.05 Baso # (Auto) 0.02 Immature Gran # (Auto) 0.06 H Sodium 137 Potassium 3.9 Chloride 104 Carbon Dioxide 27 Anion Gap 6 BUN 4 L Creatinine 0.53 L Est Cr Clr Drug Dosing 142.2 Est GFR ( Amer) 149.8 Est GFR (Non-Af Amer) 129.2 BUN/Creatinine Ratio 7.5 L Glucose 120 H Calcium 9.4 Magnesium 1.7 Total Bilirubin 0.5 AST 21 ALT 15 Alkaline Phosphatase 37 Total Protein 6.7 Albumin 4.1 Globulin 2.6 Albumin/Globulin Ratio 1.6 Lipase 53 Urine Color Yellow Urine Appearance Clear Urine pH 6.5 Ur Specific [place] 1.045 H Urine Protein Negative Urine Glucose (UA) Negative Urine Ketones Negative Urine Blood Negative Urine Nitrite Negative Urine Bilirubin Negative Urine Urobilinogen Negative Ur Leukocyte Esterase Negative Current Inpatient Medications Current Inpatient Medications: Current Inpatient Medications Acetaminophen (Acetaminophen 325 Mg Tab) 650 mg PO Q4H PRN PRN Reason: Pain or Fever Stop: 07/08/21 10:16 Last Admin: 06/12/21 05:27 Dose: 650 mg Documented by: Al Hydrox/Mg Hydrox/Simethicone (Aluminum/Magnesium Susp 30 Ml Udc) 15 ml PO Q4H PRN PRN Reason: Dyspepsia Stop: 07/08/21 10:16 Buspirone HCl (Buspirone 5 Mg Tab) 10 mg PO TID [facility] Stop: 07/16/21 13:59 Dextrose (Dextrose 50% 50 Ml Syringe) 25 - 50 ml IV UD PRN; Protocol PRN Reason: Hypoglycemia Protocol Stop: 07/08/21 15:17 Diphenhydramine HCl (Diphenhydramine 50 Mg/Ml Vial) 25 mg IV Q6 PRN PRN Reason: Anxiety/itching Stop: 07/16/21 10:18 Folic Acid (Folic Acid 1 Mg Tab) 1 mg PO QAM [facility] Stop: 07/14/21 08:59 Last Admin: 06/16/21 09:18 Dose: 1 mg Documented by: Glucagon (Glucagon For Inj 1 Mg Vial) 1 mg SQ UD PRN; Protocol PRN Reason: Hypoglycemia Protocol Stop: 07/08/21 15:17 Glucose (Glucose 10 Tabs/Tube) 4 - 8 tabs PO UD PRN; Protocol PRN Reason: Hypoglycemia Protocol Stop: 07/08/21 15:17 Glucose (Glucose 40% Gel 15 Gm Tube) 15 - 30 gm PO UD PRN; Protocol PRN Reason: Hypoglycemia Protocol Stop: 07/08/21 15:17 Ibuprofen (Ibuprofen 600 Mg Tab) 600 mg PO Q8H PRN PRN Reason: pain Stop: 07/12/21 10:43 Last Admin: 06/16/21 08:30 Dose: 600 mg Documented by: Lorazepam (Lorazepam 0.5 Mg Tab) 0.5 mg PO Q8H PRN PRN Reason: Anxiety Stop: 07/14/21 11:54 Last Admin: 06/16/21 04:37 Dose: 0.5 mg Documented by: Magnesium Hydroxide (Magnesium Hydroxide Susp 30 Ml Udc) 30 ml PO Q12H PRN PRN Reason: Constipation Stop: 07/08/21 10:16 Magnesium Oxide (Magnesium Oxide 400 Mg Tab) 400 mg PO BID [facility] Stop: 07/14/21 20:59 Last Admin: 06/16/21 09:19 Dose: 400 mg Documented by: Miscellaneous (Carbohydrates For Hypoglycemia ) 15 - 30 gm PO UD PRN PRN Reason: Hypoglycemia Protocol Stop: 07/08/21 15:17 Pantoprazole Sodium (Pantoprazole 40 Mg Tab) 40 mg PO BID [facility] Stop: 07/13/21 20:59 Last Admin: 06/16/21 09:19 Dose: 40 mg Documented by: Polyethylene Glycol (Polyethylene (Miralax) 17 Gm Pack) 17 gm PO DAILY PRN PRN Reason: Constipation Stop: 07/08/21 10:16 Promethazine HCl (Promethazine Hcl 25 Mg Tab) 25 mg PO Q6H PRN PRN Reason: Nausea And Vomiting Stop: 07/13/21 13:53 Last Admin: 06/16/21 08:42 Dose: 25 mg Documented by: Sucralfate (Sucralfate 1 Gm/10 Ml [facility]) 1 gm PO QID [facility] Stop: 06/16/21 16:59 Last Admin: 06/16/21 09:19 Dose: 1 gm Documented by: Thiamine HCl (Thiamine Hcl 100 Mg Tab) 100 mg PO QAM [facility] Stop: 07/14/21 08:59 Last Admin: 06/16/21 09:19 Dose: 100 mg Documented by: Ziprasidone (Ziprasidone 20 Mg/Ml Sd) 10 mg IM Q6H PRN PRN Reason: Anxiety/Agitation Stop: 07/13/21 01:29 Last Admin: 06/14/21 02:55 Dose: 10 mg Documented by:
--- NOTE | 2021-06-16 12:01 | Hospitalist Progress Note ---
Date of Service June 16, 2021 Assessment & Plan (1) Suicidal ideation: Plan: Initially presented on a 302 warrant, however, this has been removed by psychiatry. She continues to deny SI or HI. Resolved. (2) Alcohol withdrawal: Plan: Resolved. Heavy, chronic alcohol use. Received gabapentin and Ativan this admission. Current clinical picture is consistent with severe anxiety. (3) Epigastric pain: Plan: Has had multiple issues with this over the past two years. Has been seen by GI several times. Referred for outpatient EUS and GI followup, however, she has not pursued outpatient followup or EGD per outpatient [facility] records. Pain still present and she is eating. IVF were given for a couple of days which impro bob her pain and her heart rate. Cont BID PPI and Carafate for now. Motrin PRN. These are helping; did not meet criteria for pancreatitis and she is eating. I feel, and she agrees, that her somatic pain is a manifestation of her emotional pain. Cont current therapies. (4) Anxiety: Plan: severe, cont PO Ativan as needed and Buspar. She reports SSRIs made her feel poorly in the past but has done well with Buspar. Seen by psychiatrist this morning who increased her Buspar and added PRN diphenhydramine for itching. (5) Bipolar disorder: Plan: as above. Defer snf management to her outpatient mental health team. (6) Alcohol use disorder, severe, dependence: Plan: declines rehab (7) Marijuana use: Plan: expresses desire to get onto medical marijuana as outpatient as this helps her pain. Currently not taking, however. (8) DVT prophylaxis: Plan: Ambulation, SCDs. Full Code Dispo-cont hospitalization until anxiety is more controlled and she has a safe disposition. [facility] Eduardo [facility] and Anticipated Discharge Date Admission Date: June 08, 2021 Subjective 26 yo F with self reported bipolar disorder with depression admitted for suicidal ideations and alcohol withdrawal still with excessive crying and anxiety today reports pain all over her body she is not allowed to return to her house and is trying to find a home to go live in when she is discharged. upset because still has nowhere to live declines rehab states "i'm so sick of people asking me the same question" I asked "do you think you need help wtih substance abuse?" she replied "I just need a place to live" (with multiple expletives) Buspar helping her-psych saw her, increased this today and added diphenhy dramine. Review of Systems Review of Systems: All systems were reviewed and negative except as indicated above. Physical Exam Physical Exam: CONSTITUTIONAL: WNWD, vitals as above, NAD EYES: normal conjunctivae, no scleral icterus ENT: external ear and nose normal, rings on lip and in nose. NECK: trachea midline RESPIRATORY: clear to auscultation bilaterally, no crackles, rales or wheezes, normal respiratory effort CARDIOVASCULAR: reg rate and rhythm, S1 and 2 heard without murmurs, gallops or rubs, no JVD, no peripheral edema CHEST: dark brown golfball sized area of ecchymosis on her left anterior chest wall and on her lower abdomen. GASTROINTESTINAL: soft, generalized abdominal tenderness, nondistended. MUSCULOSKELETAL: strength 5/5 throughout, ambulates independently SKIN: warm and dry NEUROLOGIC: CN 2-12 grossly intact, normal cognition, normal speech, no tremors. No gross focal deficits. PSYCHIATRIC: alert cooperative and oriented to person, place and time. No good eye contact. Language grossly intact, recent and remote memory grossly intact. Results & Data Results & Data ([facility]) Vital Signs (Past 12 Hours) Vital Signs Temp Pulse Resp BP Pulse Ox 06/16/21 07:18 37.0 C 92 H 16 107/71 100 Laboratory Results Short CBC 06/15/21 Range/Units 20:03 WBC 3.79 L (4.8-10.8) K/uL Hgb 10.9 L (12.0-16.0) g/dL Hct 34.0 L (37-47) % Plt Count 220 D (130-400) K/uL BMP 06/15/21 20:03 Sodium 137 Potassium 3.9 Chloride 104 Carbon Dioxide 27 BUN 4 L Creatinine 0.53 L Glucose 120 H Calcium 9.4 Liver Function 06/15/21 Range/Units 20:03 Total Bilirubin 0.5 (0.2-1.0) mg/dl AST 21 (13-39) U/L ALT 15 (7-52) U/L Alkaline Phosphatase 37 (34-104) U/L Albumin 4.1 (3.4-5.0) gm/dl Urine 06/15/21 Range/Units 22:00 Urine Color Yellow Urine Appearance Clear (Clear) Urine pH 6.5 (4.5-7.5) Ur Specific [place] 1.045 H (1.000-1.030) Urine Protein Negative (Negative) Urine Glucose (UA) Negative (Negative) Diagnostic Findings Abdomen/Pelvis CT 06/15/21 19:34 CT abd pelvis IV con only CLINICAL HISTORY: worsening abd pain COMPARISON STUDY: 06/07/2021 CT DOSE: 283.30 mGy.cm TECHNIQUE: Standard CT of the Abdomen and Pelvis was performed with IV contrast. A dose lowering technique was utilized adhering to the principles of ALARA. Contrast Volume: Optiray 320, 96 ml. The patient did not receive oral contrast. FINDINGS: Lung base: The lung bases are clear. Abdominal cavity: There is no evidence for abdominal mass, adenopathy or ascites. Liver: There is homogeneous attenuation of the liver parenchyma. There is no evidence for enhancing mass lesion. Spleen: There is homogeneous attenuation of the splenic parenchyma. There is no enhancing mass lesion. Pancreas: There is homogeneous attenuation of the pancreatic parenchyma. There is no evidence for mass lesion or peripancreatic fluid collection. Gall Bladder: There is contraction of the gallbladder due to the patient's nonfasting state. Adrenal glands: The adrenal glands are normal in size and attenuation. There is no evidence for enhancing mass lesion. Kidneys: There is homogeneous attenuation of the renal parenchyma bilaterally. There is no evidence for renal calculus or hydronephrosis. There is no evidence for enhancing mass. Bowel: The stomach is grossly distended with liquid and food stuff. The bowel loops are normally placed within the abdomen and pelvis without evidence for dilatation or obstruction. There is no evidence for mass lesion. There are no inflammatory changes present. There is no evidence for free air. There is a normal appendix in the right lower quadrant. Bladder: The bladder is within normal limits with no evidence for focal mass, calculus or diverticulum. : There is no evidence for pelvic mass or adenopathy. There is no evidence for pelvic ascites. Vasculature: There is no evidence for aneurysmal dilatation of the abdominal aorta. Osseous structures: There is no acute osseous pathology. IMPRESSION: 1. No acute intra-abdominal or pelvic abnormality. No significant interval change. 2. Nonacute findings are delineated above. ACT 112: Negative or not required by law. Electronically signed by: Rusty Hanna M.D. 06/16/2021 8:01 AM Medications Administered Current Inpatient Medications Acetaminophen (Acetaminophen 325 Mg Tab) 650 mg PO Q4H PRN PRN Reason: Pain or Fever Stop: 07/08/21 10:16 Last Admin: 06/12/21 05:27 Dose: 650 mg Documented by: Al Hydrox/Mg Hydrox/Simethicone (Aluminum/Magnesium Susp 30 Ml Udc) 15 ml PO Q4H PRN PRN Reason: Dyspepsia Stop: 07/08/21 10:16 Buspirone HCl (Buspirone 5 Mg Tab) 10 mg PO TID CHUN Stop: 07/16/21 13:59 Dextrose (Dextrose 50% 50 Ml Syringe) 25 - 50 ml IV UD PRN; Protocol PRN Reason: Hypoglycemia Protocol Stop: 07/08/21 15:17 Diphenhydramine HCl (Diphenhydramine 50 Mg/Ml Vial) 25 mg IV Q6 PRN PRN Reason: Anxiety/itching Stop: 07/16/21 10:18 Folic Acid (Folic Acid 1 Mg Tab) 1 mg PO QAM CHUN Stop: 07/14/21 08:59 Last Admin: 06/16/21 09:18 Dose: 1 mg Documented by: Glucagon (Glucagon For Inj 1 Mg Vial) 1 mg SQ UD PRN; Protocol PRN Reason: Hypoglycemia Protocol Stop: 07/08/21 15:17 Glucose (Glucose 10 Tabs/Tube) 4 - 8 tabs PO UD PRN; Protocol PRN Reason: Hypoglycemia Protocol Stop: 07/08/21 15:17 Glucose (Glucose 40% Gel 15 Gm Tube) 15 - 30 gm PO UD PRN; Protocol PRN Reason: Hypoglycemia Protocol Stop: 07/08/21 15:17 Ibuprofen (Ibuprofen 600 Mg Tab) 600 mg PO Q8H PRN PRN Reason: pain Stop: 07/12/21 10:43 Last Admin: 06/16/21 08:30 Dose: 600 mg Documented by: Lorazepam (Lorazepam 0.5 Mg Tab) 0.5 mg PO Q8H PRN PRN Reason: Anxiety Stop: 07/14/21 11:54 Last Admin: 06/16/21 04:37 Dose: 0.5 mg Documented by: Magnesium Hydroxide (Magnesium Hydroxide Susp 30 Ml Udc) 30 ml PO Q12H PRN PRN Reason: Constipation Stop: 07/08/21 10:16 Magnesium Oxide (Magnesium Oxide 400 Mg Tab) 400 mg PO BID [facility] Stop: 07/14/21 20:59 Last Admin: 06/16/21 09:19 Dose: 400 mg Documented by: Miscellaneous (Carbohydrates For Hypoglycemia ) 15 - 30 gm PO UD PRN PRN Reason: Hypoglycemia Protocol Stop: 07/08/21 15:17 Pantoprazole Sodium (Pantoprazole 40 Mg Tab) 40 mg PO BID [facility] Stop: 07/13/21 20:59 Last Admin: 06/16/21 09:19 Dose: 40 mg Documented by: Polyethylene Glycol (Polyethylene (Miralax) 17 Gm Pack) 17 gm PO DAILY PRN PRN Reason: Constipation Stop: 07/08/21 10:16 Promethazine HCl (Promethazine Hcl 25 Mg Tab) 25 mg PO Q6H PRN PRN Reason: Nausea And Vomiting Stop: 07/13/21 13:53 Last Admin: 06/16/21 08:42 Dose: 25 mg Documented by: Sucralfate (Sucralfate 1 Gm/10 Ml Udc) 1 gm PO QID [facility] Stop: 06/16/21 16:59 Last Admin: 06/16/21 09:19 Dose: 1 gm Documented by: Thiamine HCl (Thiamine Hcl 100 Mg Tab) 100 mg PO QAM [facility] Stop: 07/14/21 08:59 Last Admin: 06/16/21 09:19 Dose: 100 mg Documented by: Ziprasidone (Ziprasidone 20 Mg/Ml Sdv) 10 mg IM Q6H PRN PRN Reason: Anxiety/Agitation Stop: 07/13/21 01:29 Last Admin: 06/14/21 02:55 Dose: 10 mg Documented by: (1) Alcohol withdrawal Complication of substance-induced condition: uncomplicated Qualified Code(s): F10.230 - Alcohol dependence with withdrawal, uncomplicated
[2021-06-17] MEDS: diphenhydrAMINE 50 MG/ML VIAL IV PRN ×5 (00:43→21:17)
[2021-06-17] MEDS: LORazepam 0.5 MG TAB PO PRN ×3 (00:43→17:33)
[2021-06-17] MEDS: busPIRone 5 MG TAB PO SCH ×3 (05:43→20:58)
[2021-06-17] MEDS: PROMETHAZINE HCL 25 MG TAB PO PRN ×2 (06:15→18:47)
[2021-06-17] MEDS: PANTOprazole 40 MG TAB PO SCH ×2 (07:52→20:59)
[2021-06-17] MEDS: THIAMINE HCL 100 MG TAB PO SCH (07:52)
[2021-06-17] MEDS: MAGNESIUM OXIDE 400 MG TAB PO SCH ×2 (07:53→21:00)
[2021-06-17] MEDS: FOLIC ACID 1 MG TAB PO SCH (07:55)
--- NOTE | 2021-06-17 15:15 | Hospitalist Progress Note ---
Date of Service June 17, 2021 Assessment & Plan (1) Suicidal ideation: Plan: Initially presented on a 302 warrant, however, this has been removed by psychiatry. She continues to deny SI or HI. Resolved. (2) Alcohol withdrawal: Plan: Treated and resolved (3) Epigastric pain: Plan: CT A/P negative for pancreatitis would recommend d/c motrin, continue PPI BID and carafate Reports diarrhea with meals, history of recurrent pancreatitis--Possible has pancreatic insufficiency, would do trial of creon TID-AC. Patient encouraged to follow up with GI outpatient (4) Anxiety: Plan: Continue Buspar, IV ativan PRN per psychiatry (5) Bipolar disorder: Plan: as above. Defer mcc management to her outpatient mental health team. (6) Alcohol use disorder, severe, dependence: Plan: declines rehab (7) Marijuana use: Plan: expresses desire to get onto medical marijuana as outpatient as this helps her pain. Currently not taking, however. (8) DVT prophylaxis: Plan: Ambulation, SCDs. Full Code Dispo-Plan to discharge home tomorrow if her mother can come pick her up Admission and Anticipated Discharge Date Admission Date: June 08, 2021 Anticipated date of discharge: 06/18/21 Subjective Reports ongoing diarrhea associated with food, denies abdominal discomfort Patient has been in discussions with her family to help her remain sober--> plan for her mother to help her move down to . to live with father temporarily Patient is motivated to stop drinking and take care of her health Physical Exam Physical Exam: Appears well nourished, tearful, reliable historian, pleasant and cooperative Respiratory: breathing comfortably on room air Cardiovascular: regular rate and rhythm, no murmurs/rubs/gallops Gastrointestinal (Abdomen): soft, non distended, non tender Musculoskeletal: no edema Neurologic: awake, alert, spontaneously moving extremities Psychiatric: tearful, maintains eye contact, speech linear, non pressured Results & Data Results & Data ([facility]) Vital Signs (Past 12 Hours) Vital Signs Temp Pulse Resp BP Pulse Ox 06/17/21 06:59 36.5 C 74 16 104/67 99 (1) Alcohol withdrawal Complication of substance-induced condition: uncomplicated Qualified Code(s): F10.230 - Alcohol dependence with withdrawal, uncomplicated
[2021-06-17] MEDS: ACETAMINOPHEN 325 MG TAB PO PRN (18:46)
[2021-06-17] MEDS ORDERED: traMADol HCL 50 MG TABLET PO STA (20:44)
[2021-06-17] MEDS: PANCREAZE (LIPASE 10,500U) CAP PO SCH (20:59)
[2021-06-18] MEDS: LORazepam 0.5 MG TAB PO PRN ×2 (01:36→08:56)
[2021-06-18] MEDS: PANCREAZE (LIPASE 10,500U) CAP PO SCH ×3 (07:23→19:49)
[2021-06-18] MEDS: ACETAMINOPHEN 325 MG TAB PO PRN (07:23)
[2021-06-18] MEDS: busPIRone 5 MG TAB PO SCH ×3 (07:23→19:49)
[2021-06-18] MEDS: PANTOprazole 40 MG TAB PO SCH ×2 (07:23→19:49)
[2021-06-18] MEDS: PROMETHAZINE HCL 25 MG TAB PO PRN (07:24)
[2021-06-18] MEDS: diphenhydrAMINE 50 MG/ML VIAL IV PRN ×3 (07:32→19:43)
[2021-06-18] MEDS: THIAMINE HCL 100 MG TAB PO SCH (08:33)
[2021-06-18] MEDS: MULTIVITAMIN TAB PO SCH (08:33)
[2021-06-18] MEDS: FOLIC ACID 1 MG TAB PO SCH (08:33)
[2021-06-18] MEDS: MAGNESIUM OXIDE 400 MG TAB PO SCH ×2 (08:33→19:49)
--- NOTE | 2021-06-18 13:43 | Hospitalist Progress Note ---
Date of Service June 18, 2021 Assessment & Plan (1) Suicidal ideation: Plan: Initially presented on a 302 warrant, however, this has been removed by psychiatry. She continues to deny SI or HI. Resolved. (2) Alcohol withdrawal: Plan: Treated and resolved (3) Epigastric pain: Plan: CT A/P negative for pancreatitis d/c motrin, continue PPI BID and carafate Reports diarrhea with meals, history of recurrent pancreatitis--Possible has pancreatic insufficiency, trial of creon TID-AC. Patient encouraged to follow up with GI outpatient (4) Anxiety: Plan: Continue Buspar, ativan PRN and PRN benadryl (5) Bipolar disorder: Plan: as above. Defer long-term management to her outpatient mental health team. (6) Alcohol use disorder, severe, dependence: Plan: declines rehab (7) Marijuana use: Plan: expresses desire to get onto medical marijuana as outpatient as this helps her pain. Currently not taking, however. (8) DVT prophylaxis: Plan: Ambulation, SCDs. Full Code Dispo-Patient is medically stable for discharge, unable to discharge today due to no safe dispo. Admission and Anticipated Discharge Date Admission Date: June 08, 2021 Anticipated date of discharge: 06/19/21 Subjective Patient was hoping her mother could come pick her up from hospital today but mother now is unreachable. Patient is very upset and tearful. She will have dispo plan in place by tomorrow Physical Exam Physical Exam: tearful, anxious, no acute distress Respiratory: breathing comfortably on room air, no wheezing/rhonchi/rales Cardiovascular: regular rate and rhythm Musculoskeletal: no edema Psychiatric: anxious Results & Data Results & Data ([facility]) Vital Signs (Past 12 Hours) Vital Signs Temp Pulse Resp BP BP Pulse Ox 06/18/21 07:25 37 C 92 H 18 117/76 99 06/18/21 01:42 36.8 C 81 18 109/70 100 (1) Alcohol withdrawal Complication of substance-induced condition: uncomplicated Qualified Code(s): F10.230 - Alcohol dependence with withdrawal, uncomplicated
[2021-06-18] MEDS: LORazepam 0.5 MG TAB SL PRN (16:32)
[2021-06-18] MEDS ORDERED: LORazepam 0.25 MG/0.5 ML VIAL IV ONE (20:30)
[2021-06-19] MEDS: PROMETHAZINE HCL 25 MG TAB PO PRN (03:39)
[2021-06-19] MEDS: diphenhydrAMINE 50 MG/ML VIAL IV PRN ×2 (03:39→10:18)
[2021-06-19] MEDS: LORazepam 0.5 MG TAB SL PRN ×2 (03:50→10:18)
[2021-06-19] MEDS ORDERED: busPIRone 5 MG TAB PO STA (04:09)
[2021-06-19] MEDS: MULTIVITAMIN TAB PO SCH (08:14)
[2021-06-19] MEDS: FOLIC ACID 1 MG TAB PO SCH (08:14)
[2021-06-19] MEDS: PANTOprazole 40 MG TAB PO SCH (08:14)
[2021-06-19] MEDS: THIAMINE HCL 100 MG TAB PO SCH (08:14)
[2021-06-19] MEDS: busPIRone 5 MG TAB PO SCH (08:14)
[2021-06-19] MEDS: PANCREAZE (LIPASE 10,500U) CAP PO SCH (08:14)
[2021-06-19] MEDS: MAGNESIUM OXIDE 400 MG TAB PO SCH (08:14)
--- NOTE | 2021-06-19 10:39 | Discharge Summary ---
Date of Service June 19, 2021 Admission HPI Per Admitting Provider This is a 26-year-old female who has significant past medical history of alcohol abuse, chronic thrombocytopenia, pancytopenia, major depressive disorder, history of recurrent alcoholic pancreatitis, history of drug abuse who presented to ED via EMS for mental health evaluation. Per EMS and ER provider patient was telling boyfriend that she wanted to . Her intent was to stab her self in the face. Upon arrival to ED patient she was cooperative, but then was swearing, becoming belligerent with EMS and staff. She did receive IM haloperidol. In ED patient was found to have significant elevation in alcohol level over 600. Initially plan was for patient to sober up in ED and then be admitted to psych. 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 She did receive IV banana bag and Ativan. Upon my evaluation patient states, "I do not feel well." She also complains of nausea and generalized abdominal pain. She reports 7 prior episodes of pancreatitis. She denies any fever, chills, sweats, lightheadedness, dizziness, chest pain, shortness of breath, nausea, vomiting, dysuria, melena, hematochezia. Her last alcoholic drink was prior to arrival. She states she drinks a handle of vodka a day. She does have history of prior withdrawal as well as 1 episode of withdrawal seizure. Upon my evaluation patient was slightly hemodynamically stable with hypotension, tachycardia and mild elevation in temperature at 37.7. She was also found to be neutropenic. She was hypokalemic, hypomagnesemic and a mild elevation in AST at 137. Her lipase was unremarkable. Urinalysis was negative for infection. Her urine tox was positive for marijuana. Her alcohol level was 646.3. Principal Diagnosis Acute alcohol intoxication Acute alcohol withdrawal Alcohol Abuse Poorly controlled Anxiety Epigastric pain Diarrhea Discharge Exam Patient appeared well. She had showed and is preparing to go home. Calm and comfortable, breathing comfortably on room air, hopeful and has plans for after discharge. All questions were answered Patient cautioned to take ativan daily PRN for next 3 days to avoid abrupt cessation Patient cautioned to not drink while taking ativan. Her response "Oh, I don't plan to ever drink again!" Patient cautioned to not drive, operate machinery while on ativan Discharge Data Allergies Allergy/AdvReac Type Severity Reaction Status Date / Time lamotrigine [From Lamictal] Allergy Mild Rash Verified 05/29/20 01:47 amairani Allergy Mild GUMS SWELL Verified 05/29/20 01:47 mushroom Allergy Mild GUMS SWELL Verified 05/29/20 01:47 ketorolac [From Toradol] AdvReac Mild Irritable Verified 05/29/20 01:47 Consultations 06/08/21 06:59 ED Decision to Admit Stat 06/08/21 08:12 Consult Psychiatry Routine Ordered Studies 06/07/21 20:09 CT abd pelvis IV con only Stat 06/07/21 20:10 CT cervical spine wo con Stat CT head/brain wo con Stat 06/15/21 19:34 CT abd pelvis IV con only Urgent Hospital Course (1) Suicidal ideation: Initially presented on a 302 warrant, however, this has been removed by psychiatry. She continues to deny SI or HI. Resolved. (2) Alcohol withdrawal: Treated and resolved (3) Epigastric pain: CT A/P negative for pancreatitis Trial of creon here for diarrhea, patient reports Creon doesn't help so was discontinued Tolerating diet at discharge (4) Anxiety: started on Buspar while here with psychiatry Was receiving ativan PRN here for severe anxiety. She was receiving it about TID. At discharge, she was given a prescription for ativan 0.5mg daily PRN x 3 days to avoid abrupt withdrawal Anxiety was controlled at discharge (5) Bipolar disorder: as above. Defer director long term care management to her outpatient mental health team. (6) Alcohol use disorder, severe, dependence: declines rehab (7) Marijuana use: expresses desire to get onto medical marijuana as outpatient as this helps her pain. Currently not taking, however. (8) DVT prophylaxis: Ambulation, SCDs. Total Time Total Time Spent Total Time Spent (In Minutes): 35 Discharge Plan Discharge Items Patient Disposition: Home - Self-Care Reason For Visit: SUICIDAL IDEATION; ALCOHOL WITHDRAWL Discharge Diagnosis: Acute alcohol Intoxication Alcohol withdrawal Anxiety, poorly controlled Suicidal ideation Epigastric pain Diarrhea Condition on Discharge: Good Health Concerns: Ongoing alcohol cessation counseling Follow up with mental health for management of anxiety Activity: Resume your previous activity Bathing: No limitations Driving/Machine Use: No limitations Weightbearing: Full weightbearing Non-emergency contact: Primary Care Provider and Psychiatrist Call non-emergency contact if: you have any medication questions and your symptoms worsen Follow-up/Referrals: William Mullins MD [Primary Care Provider] - (Date & Time 06/22/2021 10:20 AM Provider Mindi Camarillo MD Department General Internal Medicine [facility] ) Diet: Regular Addtl Attending Provider Instructions: You were admitted to the hospital for alcohol intoxication then subsequently developed withdrawal While here you were seen by psychiatry for poorly controlled anxiety Please establish care with a psychologist after discharge for management of your anxiety and to learn coping mechanisms Pending Studies at Discharge: No Stand-Alone Forms: My [facility] INFUSD, Smoking Cessation Medications and DC Order Prescriptions: New buspirone 5 mg Tablet 10 mg PO TID 30 Days Qty: 90 RF: 0 lorazepam [Ativan] 0.5 mg tablet 0.5 mg sublingual DAILY Qty: 3 RF: 0 thiamine HCl (vitamin B1) 100 mg Tablet 100 mg PO QAM 30 Days Qty: 30 RF: 0 multivitamin with folic acid [Daily-Miguelito (with folic acid)] 400 mcg Tablet 1 tab PO QAM 30 Days Qty: 30 RF: 0 No Action No Known Home Medications RF: 0 Discharge Orders: Discharge Order (Routine); Ordered 06/19/21 Ordered By: Zari Gallagher/Other Patient Handouts: Alcohol Abuse [employer], Alcoholism Resources Admission Data Admit Date/Time: 06/08/21 07:50 Attending Provider: Zari Rios Admit Provider: Andrew Saleem Primary Care Provider: William Mullins Other Providers: Andrew Saleem ; Lorenza Dickerson ; Lisa De La Rosa ; Gosia Preciado ; Oli Burch ; Bita Eduardo
== END 2021-06-19 13:13 | disposition home or self-care (01) | DRG 897 ==
LOC: ED 19:55 → SUATTDRO 06-08 07:50 → EDINP 06-08 07:50 → 2S 06-12 05:01 → 3E 06-14 21:50

== ENCOUNTER 2023-09-28 16:10 | Inpatient (IN) ==
--- NOTE | 2023-09-28 16:48 | Emergency Department Note ---
Impression & Plan Acute alcoholic gastritis, Marijuana use, Alcohol intoxication, Abdominal pain, Intractable vomiting, Neutropenia, Thrombocytopenia ED Provider Note NAME: DINORA HICKS AGE: 28 SEX: F : 1995 ARRIVES VIA: Ambulance INFORMANT: Patient ED PROVIDER(S): Derrick Aragon MD CHIEF COMPLAINT: nausea / vomiting, abdominal pain PLAN: Disposition: Admit MEDICAL DECISION MAKING: The patient is a 28-year-old woman with past medical history of polysubstance abuse, alcohol abuse, pancreatitis, bipolar disorder who presents to the emergency department via EMS for evaluation of ongoing intractable nausea and vomiting and abdominal pain over the past 4 days. She reports she does drink alcohol every day and will drink a half a liter of hard liquor. She denies any fevers, cough congestion or diarrhea. She denies any urinary symptoms. On my evaluation the patient is uncomfortable but no distress, afebrile heart in the 110s-120s and vital signs otherwise stable. She appears clinically dry. She has generalized abdominal discomfort without discrete tenderness. There is no crepitus on palpation of the neck or chest. WBC 2.7 with ANC of 0.57 similar to prior In setting of the patient's alcoholism. H/H within normal limits. Platelets 123 K, also similar to prior in setting the patient's alcoholism. VBG 7.5 with pCO2 of 22 consistent with component of hyperventilation is in the setting of the patient's discomfort. Chemistry with out significant metabolic acidosis with bicarbonate of 19 and anion gap marginally above normal at 13. Electrolytes without significant abnormality. AST is elevated at 76 similar to prior in the setting of the patient's alcohol abuse. LFTs otherwise normal including normal and direct bilirubin. Lipase is not elevated. hCG negative. UA without evidence of infection. Drug she was positive for methamphetamine, MDMA, THC. Medical alcohol was elevated at 441. Patient was treated with IV fluid hydration, IV famotidine, Compazine, diphenhydramine for intractable vomiting. She was additionally provided topical capsaicin for possible component of hyperemesis related to her daily cannabis use however she did not tolerate this and so was discontinued. She was also given 1 mg of Ativan for prophylaxis against high risk withdrawal. CT of the abdomen pelvis was performed and was negative for acute abnormalities. Given the patient's intractable nausea and vomiting which is suspected to be related to alcoholic gastritis patient was for to hospital service for further management. Case was discussed with [facility] hospitalist who will evaluate the patient for admission. Further management per admitting team. Triage Nursing notes reviewed and agree them. Prior/external medical records reviewed Vital Signs: reviewed Differential diagnosis: Gastroenteritis, food borne illness, infections, appendicitis, diverticulitis, inflammatory bowel disease, obstruction, GI bleed, biliary pathology, volvulus, as well as other pathologies. ER treatment provided: See below. Diagnostics interpreted by me: ECG: Sinus tachycardia, 160 bpm, no ectopy, no overt ST elevation or depression, QTc 469 QRS 70. Cardiac Monitoring: An order for continuous cardiac monitoring was placed and demonstrated Sinus tachycardia, 160 bpm, no ectopy. Laboratory studies: See below Imaging studies: See below Consultation(s): Case was discussed with [facility] hospitalist who will evaluate the patient for admission. HPI: The patient is a 28-year-old woman with past medical history of polysubstance abuse, alcohol abuse, pancreatitis, bipolar disorder who presents to the emergency department via EMS for evaluation of ongoing intractable nausea and vomiting and abdominal pain over the past 4 days. She reports she does drink alcohol every day and will drink a half a liter of hard liquor. She denies any fevers, cough congestion or diarrhea. She denies any urinary symptoms. ROS: See above HPI for pertinent positives & negatives. A total of 10 systems reviewed and were otherwise negative. VITALS:See Below GENERAL: Awake, alert, ill-appearing, in no distress HENT: Normocephalic, atraumatic. Oropharynx with dry mucous membranes and otherwise unremarkable. EYES: Normal conjunctiva. Sclera non-icteric. NECK: Supple. No nuchal rigidity. FROM. No JVD. No crepitus. RESPIRATORY: Clear to auscultation. CARDIAC: Tachycardic rate, normal rhythm. Extremities warm and well perfused. Pulses equal. ABDOMEN: Soft, non-distended. Generalized abdominal discomfort without discrete tenderness to palpation. No rebound or guarding. No masses. MUSCULOSKELETAL: Chest examination reveals no tenderness. No crepitus. The back is symmetrical on inspection without obvious abnormality. There is no CVA tenderness to palpation. No joint edema. LOWER EXTREMITIES: Calves are equal size bilaterally and non-tender. No edema. No discoloration. NEURO: Normal sensorium. No sensory or motor deficits noted. SKIN: No rash or jaundice noted. Derrick Aragon MD Past Med/Surg History Problem List (Updated 09/29/23 @ 00:11 by Derrick Aragon MD) Thrombocytopenia (Acute) Neutropenia (Acute) Acute alcoholic gastritis (Acute) Epigastric pain Bipolar disorder Acute alcoholic pancreatitis Anxiety Marijuana use (Acute) Unspecified mood [affective] disorder Alcohol use disorder, severe, dependence Hypomagnesemia Hypokalemia Intractable vomiting (Acute) Epigastric abdominal pain (Acute) High anion gap metabolic acidosis (Acute) Alcohol withdrawal (Acute) Suicidal ideation (Acute) Abdominal pain (Acute) Alcohol intoxication (Acute) Mood disorder (Acute) Cellulitis of face (Acute) Pancreatitis (Acute) DVT prophylaxis Seizure disorder Suicide and self-inflicted injury Alcohol abuse (Acute) Facial cellulitis History of orthopedic surgery Polysubstance abuse Mood disorder (Chronic) Medical History Alcohol abuse Closed fracture of right olecranon process Closed fracture of left distal radius Tobacco use disorder Mood disorder Recurrent pancreatitis Surgical History History of D&C x 3 Family History Other No significant family history Social History Smoking Status: Current every day smoker Tobacco Type: Cigarettes and E-cigarettes / Vaping Cigarettes Per Day: 10; Second Hand Exposure: No; Do You Dip or Chew Tobacco: No; Hx Alcohol Use: Yes Hx Substance Use: Yes Prescribed Medications: Marijuana Last Used Substance: Just Prior to Arrival Preferred Language: [place] Communication Ability: Effective Visual Impairment: No Limitations 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 current occupational status: unemployed Feels Safe at Home: No Is there a partner from a previous relationship who is making you feel unsafe now?: No Assistive Devices: None Allergies Allergies Allergy/AdvReac Type Severity Reaction Status Date / Time lamotrigine [From Lamictal] Allergy Mild Rash Verified 09/28/23 19:48 amairani Allergy Mild GUMS SWELL Verified 09/28/23 19:48 mushroom Allergy Mild GUMS SWELL Verified 09/28/23 19:48 ketorolac [From Toradol] AdvReac Mild Irritable Verified 09/28/23 19:48 Home Meds Home Medications Medication Instructions Recorded Confirmed buspirone 10 mg tablet 10 mg PO BID PRN Anxiety 08/24/22 09/28/23 multivitamin 1 tab PO DAILY 09/28/23 09/28/23 Results & Data (ED) Vital Signs Vital Signs - 24 hr 09/28/23 16:27 09/28/23 17:11 09/28/23 17:12 Temperature 36.5 C Temperature Source Oral Pulse Rate 115 H 126 H 127 H Pulse Rate [Apical] Pulse Rate from SpO2 Sensor Respiratory Rate 24 22 Respiratory Effort / Characteristics Non-Labored Spontaneous Respiratory Depth Normal Blood Pressure 125/102 H Blood Pressure [Left Arm] Blood Pressure Mean 109 Blood Pressure Mean [Left Arm] Pulse Oximetry 99 Oxygen Delivery Method Room Air Oxygen Flow Rate Sepsis Recent Fever Within 48 Hours No Sepsis New/Unexplained Change in Mental Status N/A Sepsis Action Taken by Nursing No Action Required 09/28/23 17:19 09/28/23 17:20 09/28/23 17:28 Temperature Temperature Source Pulse Rate Pulse Rate [Apical] Pulse Rate from SpO2 Sensor Respiratory Rate 12 Respiratory Effort / Characteristics Respiratory Depth Blood Pressure Blood Pressure [Left Arm] Blood Pressure Mean Blood Pressure Mean [Left Arm] Pulse Oximetry 97 86 L 97 Oxygen Delivery Method Room Air Room Air Nasal Cannula Oxygen Flow Rate 2 Sepsis Recent Fever Within 48 Hours Sepsis New/Unexplained Change in Mental Status Sepsis Action Taken by Nursing 09/28/23 17:30 09/28/23 18:00 09/28/23 18:10 Temperature Temperature Source Pulse Rate 99 H 105 H 106 H Pulse Rate [Apical] Pulse Rate from SpO2 Sensor 99 H 105 H 106 H Respiratory Rate 25 H 26 H 15 Respiratory Effort / Characteristics Respiratory Depth Blood Pressure Blood Pressure [Left Arm] Blood Pressure Mean Blood Pressure Mean [Left Arm] Pulse Oximetry 99 99 99 Oxygen Delivery Method Oxygen Flow Rate Sepsis Recent Fever Within 48 Hours Sepsis New/Unexplained Change in Mental Status Sepsis Action Taken by Nursing 09/28/23 18:10 09/28/23 18:30 09/28/23 19:00 Temperature Temperature Source Pulse Rate 97 H 100 H Pulse Rate [Apical] Pulse Rate from SpO2 Sensor 97 H 100 H Respiratory Rate 19 24 Respiratory Effort / Characteristics Respiratory Depth Blood Pressure 105/65 Blood Pressure [Left Arm] Blood Pressure Mean 76 Blood Pressure Mean [Left Arm] Pulse Oximetry 99 100 Oxygen Delivery Method Oxygen Flow Rate Sepsis Recent Fever Within 48 Hours Sepsis New/Unexplained Change in Mental Status Sepsis Action Taken by Nursing 09/28/23 19:30 09/28/23 20:00 09/28/23 20:30 Temperature Temperature Source Pulse Rate 97 H 86 92 H Pulse Rate [Apical] Pulse Rate from SpO2 Sensor 97 H 87 93 H Respiratory Rate 23 20 20 Respiratory Effort / Characteristics Respiratory Depth Blood Pressure Blood Pressure [Left Arm] Blood Pressure Mean Blood Pressure Mean [Left Arm] Pulse Oximetry 100 100 100 Oxygen Delivery Method Oxygen Flow Rate Sepsis Recent Fever Within 48 Hours Sepsis New/Unexplained Change in Mental Status Sepsis Action Taken by Nursing 09/28/23 20:36 09/28/23 20:37 09/28/23 20:45 Temperature 36.6 C Temperature Source Oral Pulse Rate 102 H Pulse Rate [Apical] 91 H Pulse Rate from SpO2 Sensor 100 H Respiratory Rate 24 19 Respiratory Effort / Characteristics Respiratory Depth Blood Pressure 103/62 Blood Pressure [Left Arm] 103/62 Blood Pressure Mean 73 Blood Pressure Mean [Left Arm] 75 Pulse Oximetry 100 99 Oxygen Delivery Method Room Air Oxygen Flow Rate Sepsis Recent Fever Within 48 Hours Sepsis New/Unexplained Change in Mental Status Sepsis Action Taken by Nursing Laboratory Data Attestation: I reviewed the patient's lab results. 09/28/23 17:06 09/28/23 17:06 Lab Results 09/28/23 09/28/23 Range/Units 17:06 17:15 WBC 2.77 L (4.8-10.8) K/ul RBC 4.40 (4.20-5.40) M/uL Hgb 14.9 (12.0-16.0) g/dl Hct 41.8 (37.0-47.0) % MCV 95.0 (80.0-100.0) fL MCH 33.9 (25.0-34.0) pg MCHC 35.6 (32.0-36.0) g/dL RDW Std Deviation 51.6 H (36.4-46.3) fL RDW Coeff of [place] 14.7 H (11.5-14.5) % Plt Count 123 L (130-400) K/uL MPV 8.8 L (9.4-12.4) fL Immature Gran % (Auto) 0.4 % Neut % (Auto) 20.6 % Lymph % (Auto) 56.3 % [place] % (Auto) 19.9 % Eos % (Auto) 1.4 % Baso % (Auto) 1.4 % Neut # (Auto) 0.57 L* (1.40-6.50) K/uL Lymph # (Auto) 1.56 (1.20-3.40) K/uL [place] # (Auto) 0.55 (0.11-0.59) K/uL Eos # (Auto) 0.04 (0.00-0.50) K/uL Baso # (Auto) 0.04 (0.00-0.20) K/uL Immature Gran # (Auto) 0.01 (0.01-0.20) K/uL PT 11.2 (9.0-12.0) Seconds INR 1.0 (0.9-1.1) VBG pH 7.54 H (7.36-7.41) VBG pCO2 22 L (38-50) mmHg VBG pO2 62 mmHg VBG HCO3 19 mmol/L VBG O2 Saturation 92.7 % VBG Base Excess -1.8 mEq/L Sodium 141 (136-145) mmol/L Potassium 3.8 (3.5-5.1) mmol/L Chloride 109 H (98-107) mmol/L Carbon Dioxide 19 L (21-32) mmol/L Anion Gap 13 H (3-11) BUN 4 L (6-23) mg/dl Creatinine 0.55 L (0.6-1.2) mg/dl Est Cr Clr Drug Dosing 123.3 ml/min Est GFR ( Amer) 145.9 ml/min Est GFR (Non-Af Amer) 125.9 ml/min BUN/Creatinine Ratio 7.3 L (10-20) Glucose 112 H (70-99(Fasting)) mg/dl Calcium 8.4 L (8.6-10.3) mg/dl Phosphorus 2.2 L (2.5-4.9) mg/dl Magnesium 1.8 (1.7-2.4) mg/dl Total Bilirubin 0.5 (0.2-1.0) mg/dl Direct Bilirubin 0.1 (0-0.2) mg/dl AST 76 H (13-39) U/L ALT 31 (7-52) U/L Alkaline Phosphatase 100 (34-104) U/L Total Protein 6.7 (6.0-8.3) gm/dl Albumin 3.8 (3.4-5.0) gm/dl Globulin 2.9 (2.5-4.0) gm/dl Albumin/Globulin Ratio 1.3 (0.9-2) Lipase 12 (11-82) U/L HCG, Qual Negative (Negative) Urine Color Yellow Urine Appearance Clear (Clear) Urine pH 6.5 (4.5-7.5) Ur Specific [place] 1.005 (1.000-1.030) Urine Protein Negative (Negative) Urine Glucose (UA) Negative (Negative) Urine Ketones Negative (Negative) Urine Blood Negative (Negative) Urine Nitrite Negative (Negative) Urine Bilirubin Negative (Negative) Urine Urobilinogen Negative (Negative) Ur Leukocyte Esterase Negative (Negative) Urine Opiates Screen Neg (Neg) Ur Methadone, Qual Neg (Neg) Urine Barbiturates Neg (Neg) Ur Phencyclidine (PCP) Neg (Neg) U Amphetamin/Meth Scrn Pos H (Neg) MDMA (Ecstasy) Screen Pos H (Neg) U Benzodiazepines Scrn Neg (Neg) Ur Cocaine Metabolite Neg (Neg) U Marijuana (THC) Screen Pos H (Neg) Ethyl Alcohol mg/dL 441.1 H (<10.0) mg/dl Administered Medications Lactated Ringer's (Lr) 1,000 mls @ 200 mls/hr IV .Q5H ONE Stop: 09/29/23 01:21 Last Admin: 09/28/23 20:00 Dose: 200 mls/hr Documented By: ACC Discontinued Medications Capsaicin (Capsaicin Cr 0.075% 60 Gm Tube) 1 appln EXT NOW STA Stop: 09/28/23 16:44 Last Admin: 09/28/23 17:03 Dose: 1 appln Documented By: ACC Diphenhydramine HCl (Diphenhydramine 50 Mg/Ml Vial) 25 mg IV NOW STA Stop: 09/28/23 16:44 Last Admin: 09/28/23 17:02 Dose: 25 mg Documented By: ACC Gabapentin (Gabapentin 600 Mg Tab) 1,200 mg PO NOW ONE Stop: 09/28/23 21:16 Last Admin: 09/28/23 21:58 Dose: 1,200 mg Documented By: ACC Famotidine (Pepcid 20mg Iv Push) 20 mg in 5 mls @ 2.5 mls/min IV NOW STA Stop: 09/28/23 16:44 Last Admin: 09/28/23 17:02 Dose: 2.5 mls/min Documented By: ACC Prochlorperazine (Compazine) 2 mls @ 1 mls/min IV ONE ONE Stop: 09/28/23 16:44 Last Admin: 09/28/23 17:12 Dose: 1 mls/min Documented By: ACC Sodium Chloride (Nss) 1,000 mls @ 999 mls/hr IV .Q1H1M CHUN Stop: 09/28/23 18:45 Last Infusion: 09/28/23 20:30 Dose: Infused Documented By: Admin: 09/28/23 18:52 Dose: 999 mls/hr Documented By: Infusion: 09/28/23 18:13 Dose: Infused Documented By: Admin: 09/28/23 17:12 Dose: 999 mls/hr Documented By: ACC Thiamine HCl 100 mg/ Syringe 10 mls @ 2 mls/min IV NOW STA Stop: 09/28/23 20:25 Last Admin: 09/28/23 20:52 Dose: 2 mls/min Documented By: ACC Magnesium Sulfate/Dextrose (Magnesium Sulfate / D5w) 1 gm in 100 mls @ 50 mls/hr IV ONE ONE Stop: 09/28/23 23:29 Last Infusion: 09/29/23 00:03 Dose: Infused Documented By: Admin: 09/28/23 21:58 Dose: 50 mls/hr Documented By: ACC Ioversol (Optiray 320 100ml) 94 ml IV ONCE ONE Stop: 09/28/23 18:39 Last Admin: 09/28/23 18:39 Dose: 94 ml Documented By: RADHA Lorazepam (Lorazepam 1 Mg/1 Ml Syr Ed Inj Use) 1 mg IV ONE STA Stop: 09/28/23 16:47 Last Admin: 09/28/23 17:02 Dose: 1 mg Documented By: ACC Imaging Data Radiologist's Impression: Chest X-Ray 09/28/23 16:42 SINGLE VIEW CHEST CLINICAL HISTORY: Generalized abdominal pain. FINDINGS: An AP, portable, upright chest radiograph is compared to study dated 06/08/2021. The cardiomediastinal silhouette is unremarkable. A calcific granuloma is again seen in the right upper lobe. The lungs and pleural spaces are otherwise clear. No pneumothorax is seen. The bony thorax is grossly intact. IMPRESSION: No active disease in the chest. ACT 112: Negative or not required by law. Electronically signed by: Fermin Hui M.D. 09/28/2023 5:35 PM Abdomen/Pelvis CT 09/28/23 16:43 CT SCAN OF THE ABDOMEN AND PELVIS WITH IV CONTRAST CLINICAL HISTORY: Intoxication. Generalized abdominal pain. Nausea and vomiting. COMPARISON STUDY: Abdominal CT dated 06/15/2021. TECHNIQUE: Following the IV administration of 94 cc of Optiray 320, CT scan of the abdomen and pelvis is performed from the lung bases to the proximal femora. Images are reviewed in the axial, sagittal, and coronal planes. IV contrast was administered without complication. A dose lowering technique was utilized adhering to the principles of ALARA. The examination is severely degraded by motion artifact. The patient was scanned 3 times in an effort to improve image quality. There is also streak artifact from the arms which could not be elevated above the abdomen or pelvis. CT DOSE: 1664.05 mGy.cm FINDINGS: Lung bases: The heart is normal in size and without pericardial effusion. The lung bases are clear. Liver: The contrast-enhanced liver is top normal in size and demonstrates diffusely diminished attenuation indicating steatosis. There is no intrahepatic biliary ductal dilatation. The hepatic veins and portal veins are patent. Gallbladder: Distended but otherwise normal in appearance. Spleen: Normal in size and attenuation. There is a calcified splenic granuloma. Pancreas: Unremarkable. Adrenal glands: Unremarkable. Kidneys: The contrast enhanced kidneys are normal in size and without hydronephrosis. The kidneys enhance symmetrically. Abdominal vasculature: The abdominal aorta is normal in course and caliber. Bowel: There is no bowel obstruction. Imaged portions of the appendix appear normal. This is incompletely evaluated. Peritoneum: There is no intraperitoneal free air or abdominal ascites. Lymphadenopathy: None. Pelvic viscera: The bladder and uterus are grossly unremarkable. A 3.9 cm ovarian cyst is seen on the left. Skeletal structures: No lytic or blastic lesions are seen. IMPRESSION: 1. Severely motion compromised examination. This degrades diagnostic utility. 2. No acute infectious or inflammatory findings are identified in the abdomen or pelvis on this compromised examination. 3. There is a 3.9 cm left ovarian cyst. 4. Hepatic steatosis. ACT 112: Negative or not required by law. Electronically signed by: Fermin Hui M.D. 09/28/2023 7:17 PM Discharge Plan Visit Data Chief Complaint: Abdominal Pain Stated Complaint: AB PAIN ED Provider: Derrick Aragon Discharge Problem: Acute alcoholic gastritis, Marijuana use, Alcohol intoxication, Abdominal pain, Intractable vomiting, Neutropenia, Thrombocytopenia Patient Disposition: Admitted As Inpatient Discharge Instructions Interventions: ED Discharge Assessment Last Done: 09/28/23 23:15 Discharge Problem: Acute alcoholic gastritis Qualifiers: Gastritis bleeding: without bleeding Qualified Code(s): K29.20 - Alcoholic gastritis without bleeding Alcohol intoxication Qualifiers: Complication of substance-induced condition: with unspecified complication Q ualified Code(s): F10.929 - Alcohol use, unspecified with intoxication, unspecified Abdominal pain Qualifiers: Abdominal location: generalized Qualified Code(s): R10.84 - Generalized abdominal pain Neutropenia Qualifiers: Neutropenia type: unspecified Qualified Code(s): D70.9 - Neutropenia, unspecified
[2023-09-28] MEDS: LORazepam 1 MG/1 ML SYR ED Inj Use IV STA (17:02)
[2023-09-28] MEDS: diphenhydrAMINE 50 MG/ML VIAL IV STA (17:02)
[2023-09-28] MEDS: FAMOTIDINE 20MG IV PUSH 20 MG/5 ML SYR IV STA (17:02)
[2023-09-28] MEDS: CAPSAICIN CR 0.075% 60 GM TUBE EXT STA (17:03)
[2023-09-28] MEDS: SODIUM CHLORIDE 0.9% 1,000 ML IV SCH (17:12)
[2023-09-28] MEDS: PROCHLORPERAZINE 2 ML IV ONE (17:12)
[2023-09-28 17:16] LABS: Base Excess VBG -1.8 mEq/L; HCO3 VBG 19 mmol/L; Oxygen Saturation VBG 92.7 %; PCO2 VBG 22 mmHg (38-50); PO2 VBG 62 mmHg; pH VBG 7.54 (7.36-7.41)
[2023-09-28 17:28] LABS: Appearance Urine Clear (Clear); Bilirubin Urine Negative (Negative); Blood Urine Negative (Negative); Color Urine Yellow; Glucose Urine UA Negative (Negative); Ketones Urine Negative (Negative); Leukocyte Esterase Urine Negative (Negative); Nitrite Urine Negative (Negative); Protein Urine Negative (Negative); Specific Gravity Urine 1.005 (1.000-1.030); Urobilinogen Urine Negative (Negative); pH Urine 6.5 (4.5-7.5)
--- NOTE | 2023-09-28 17:36 | XRay Report ---
SINGLE VIEW CHEST CLINICAL HISTORY: Generalized abdominal pain. FINDINGS: An AP, portable, upright chest radiograph is compared to study dated 06/08/2021. The cardiom ediastinal silhouette is unremarkable. A calcific granuloma is again seen in the right upper lobe. Th e lungs and pleural spaces are otherwise clear. No pneumothorax is seen. The bony thorax is grossly i ntact. IMPRESSION: No active disease in the chest. ACT 112: Negative or not required by law. Electronically signed by: Fermin Hui M.D. 09/28/2023 5:35 PM
[2023-09-28 17:37] LABS: Hematocrit (blood only) 41.8 % (37.0-47.0); Hemoglobin 14.9 g/dl (12.0-16.0); Mean Corpuscular Hemoglobin 33.9 pg (25.0-34.0); Mean Corpuscular Hgb Conc 35.6 g/dL (32.0-36.0); Mean Platelet Volume 8.8 fL (9.4-12.4); Platelet Count 123 K/uL (130-400); RDW Coefficient of Variation 14.7 % (11.5-14.5); RDW Standard Deviation 51.6 fL (36.4-46.3); White Blood Count 2.77 K/ul (4.8-10.8)
[2023-09-28 17:53] LABS: Bilirubin Direct 0.1 mg/dl (0-0.2); Potassium 3.8 mmol/L (3.5-5.1)
[2023-09-28 17:55] LABS: Albumin Globulin Ratio 1.3 (0.9-2); Albumin Level 3.8 gm/dl (3.4-5.0); BUN Creatinine Ratio 7.3 (10-20); Bilirubin,Total 0.5 mg/dl (0.2-1.0); Calcium 8.4 mg/dl (8.6-10.3); Creatinine Clr Calc Pharmacy 123.3 ml/min; Est GFR (African American) 145.9 ml/min; Est GFR (Non-African American) 125.9 ml/min; Globulin 2.9 gm/dl (2.5-4.0); Magnesium 1.8 mg/dl (1.7-2.4); Phosphorus 2.2 mg/dl (2.5-4.9); Prothrombin Time 11.2 Seconds (9.0-12.0); Total Protein 6.7 gm/dl (6.0-8.3)
[2023-09-28 18:11] LABS: Pregnancy Test, Serum Negative (Negative)
[2023-09-28 18:18] LABS: Amphetamines+Metham, Urine Pos (Neg); Barbiturates, Urine Neg (Neg); Benzodiazepine, Urine Neg (Neg); Cocaine, Urine Neg (Neg); MDMA (Ecstacy), Urine Pos (Neg); Marijuana, Urine Pos (Neg); Methadone, Urine Neg (Neg); Opiate, Urine Neg (Neg); Phencyclidine, Urine Neg (Neg)
[2023-09-28 18:19] LABS: Basophils # (auto) 0.04 K/uL (0.00-0.20); Basophils % (auto) 1.4 %; Eosinophils # (auto) 0.04 K/uL (0.00-0.50); Eosinophils % (auto) 1.4 %; Immature Granulocytes # (auto) 0.01 K/uL (0.01-0.20); Immature Granulocytes % (auto) 0.4 %; Lymphocytes # (auto) 1.56 K/uL (1.20-3.40); Lymphocytes % (auto) 56.3 %; Monocytes # (auto) 0.55 K/uL (0.11-0.59); Monocytes % (auto) 19.9 %; Neutrophils # (auto) 0.57 K/uL (1.40-6.50); Neutrophils % (auto) 20.6 %
[2023-09-28] MEDS: OPTIRAY 320 100ml IV ONE (18:39)
--- NOTE | 2023-09-28 19:19 | CT Scan Report ---
CT SCAN OF THE ABDOMEN AND PELVIS WITH IV CONTRAST CLINICAL HISTORY: Intoxication. Generalized abdominal pain. Nausea and vomiting. COMPARISON STUDY: Abdominal CT dated 06/15/2021. TECHNIQUE: Following the IV administration of 94 cc of Optiray 320, CT scan of the abdomen and pelvi s is performed from the lung bases to the proximal femora. Images are reviewed in the axial, sagittal , and coronal planes. IV contrast was administered without complication. A dose lowering technique wa s utilized adhering to the principles of ALARA. The examination is severely degraded by motion artifa ct. The patient was scanned 3 times in an effort to improve image quality. There is also streak artif act from the arms which could not be elevated above the abdomen or pelvis. CT DOSE: 1664.05 mGy.cm FINDINGS: Lung bases: The heart is normal in size and without pericardial effusion. The lung bases are clear. Liver: The contrast-enhanced liver is top normal in size and demonstrates diffusely diminished attenu ation indicating steatosis. There is no intrahepatic biliary ductal dilatation. The hepatic veins and portal veins are patent. Gallbladder: Distended but otherwise normal in appearance. Spleen: Normal in size and attenuation. There is a calcified splenic granuloma. Pancreas: Unremarkable. Adrenal glands: Unremarkable. Kidneys: The contrast enhanced kidneys are normal in size and without hydronephrosis. The kidneys enh ance symmetrically. Abdominal vasculature: The abdominal aorta is normal in course and caliber. Bowel: There is no bowel obstruction. Imaged portions of the appendix appear normal. This is incomple tely evaluated. Peritoneum: There is no intraperitoneal free air or abdominal ascites. Lymphadenopathy: None. Pelvic viscera: The bladder and uterus are grossly unremarkable. A 3.9 cm ovarian cyst is seen on the left. Skeletal structures: No lytic or blastic lesions are seen. IMPRESSION: 1. Severely motion compromised examination. This degrades diagnostic utility. 2. No acute infectious or inflammatory findings are identified in the abdomen or pelvis on this compr omised examination. 3. There is a 3.9 cm left ovarian cyst. 4. Hepatic steatosis. ACT 112: Negative or not required by law. Electronically signed by: Fermin Hui M.D. 09/28/2023 7:17 PM
[2023-09-28] MEDS: LACTATED RINGER'S 1,000 ML IV ONE (20:00)
[2023-09-28] MEDS: THIAMINE HCL 100 MG in SYRINGE 9 ML IV STA (20:52)
--- NOTE | 2023-09-28 20:59 | History & Physical Report ---
Date of Service September 28, 2023 Assessment & Plan (1) Alcohol withdrawal: Plan: Abdominal pain possibly from alcoholic gastritis: AGMA secondary to illness mild alcoholic hepatitis, good prognosis with negative computed Maddrey's DF chronic pancytopenia secondary to chronic liver disease, hemoglobin better than baseline likely secondary to hemoconcentration anxiety/mood disorder, at baseline substance abuse ongoing tobacco abuse Medical telemetry DT precautions/AWSS IVF, judicious narcotic use given history of substance abuse Pepcid trial, PPI/GI consult if without response Nicotine patch PRN DVT prophylaxis. SCDs RE thrombocytopenia Full code Text document was generated using [employer] voice recognition software. It may contain grammatical or spelling errors. Kindly contact undersigned for clarification of any documentation item in ques tion. History of Present Illness Chief Complaint: Abdominal pain Primary Care Provider: William Mullins MD History obtained from patient and records. Medical history significant for recurrent pancreatitis, chronic pancytopenia (baseline hemoglobin of 10), anxiety/mood disorder, ongoing tobacco/alcohol abuse Last confinement June 2021 for alcohol withdrawal. Patient noted achy epigastric pain this a.m. associated with nausea and bilious emesis. Denies OTC NSAID intake. Denies black/bloody stools. No fever, no chills, no chest pain, no SOB. Medical History as above Surgical History : D&C Family History : Hypertension, alcoholism Personal/Social history : 5 cigarettes a day, alcohol abuse Allergies Allergy/AdvReac Type Severity Reaction Status Date / Time lamotrigine [From Lamictal] Allergy Mild Rash Verified 09/28/23 19:48 amairani Allergy Mild GUMS SWELL Verified 09/28/23 19:48 mushroom Allergy Mild GUMS SWELL Verified 09/28/23 19:48 ketorolac [From Toradol] AdvReac Mild Irritable Verified 09/28/23 19:48 Home Medications Medication Instructions Recorded Confirmed Type buspirone 10 mg tablet 10 mg PO BID PRN Anxiety 08/24/22 09/28/23 History multivitamin 1 tab PO DAILY 09/28/23 09/28/23 History Past Med/Surg History Problem List (Updated 09/29/23 @ 00:11 by Derrick Aragon MD) Thrombocytopenia (Acute) Neutropenia (Acute) Acute alcoholic gastritis (Acute) Epigastric pain Bipolar disorder Acute alcoholic pancreatitis Anxiety Marijuana use (Acute) Unspecified mood [affective] disorder Alcohol use disorder, severe, dependence Hypomagnesemia Hypokalemia Intractable vomiting (Acute) Epigastric abdominal pain (Acute) High anion gap metabolic acidosis (Acute) Alcohol withdrawal (Acute) Suicidal ideation (Acute) Abdominal pain (Acute) Alcohol intoxication (Acute) Mood disorder (Acute) Cellulitis of face (Acute) Pancreatitis (Acute) DVT prophylaxis Seizure disorder Suicide and self-inflicted injury Alcohol abuse (Acute) Facial cellulitis History of orthopedic surgery Polysubstance abuse Mood disorder (Chronic) Medical History Alcohol abuse Closed fracture of right olecranon process Closed fracture of left distal radius Tobacco use disorder Mood disorder Recurrent pancreatitis Surgical History History of D&C x 3 Family History Other No significant family history Social History Smoking Status: Current every day smoker Tobacco Type: Cigarettes Cigarettes Per Day: 3-4; Second Hand Exposure: No; Do You Dip or Chew Tobacco: No; Hx Alcohol Use: Yes Alcohol type: other Hx Substance Use: No Preferred Language: Yoruba Communication Ability: Effective Visual Impairment: No Limitations Beef Trimmer Required: No Beliefs That Will Affect Care: None marital status: Single marital status details: Jason (43) [phone] Current Living Situation: Spouse Current Living Situation Comment: lives with FOB, no pets. current occupational status: unemployed Other Information That Helps Us Care for You: No Feels Safe at Home: No Is there a partner from a previous relationship who is making you feel unsafe now?: No Safety Concerns: Afraid for Self Assistive Devices: None Review of Systems Review of Systems: As per HPI, all other systems reviewed and negative Physical Exam Physical Exam: GENERAL: Slightly uncomfortable, no respiratory distress SKIN: Pallor, warm HEENT: Pale palpebral conjunctivae, no ptosis, dry buccal mucosa NECK : Supple, no tenderness CHEST : CTA, no tenderness HEART : Tachycardic, no obvious murmurs ABDOMEN: no distention, epigastric tenderness EXTREMITIES : No LE swelling/tenderness, no other conspicuous deformities noted NEUROLOGIC : Coherent, no facial asymmetry, no other gross focality Results & Data Results & Data Vital Signs (Past 12 Hours) Vital Signs Temp Pulse Pulse Resp BP BP Pulse Ox 09/28/23 20:45 36.6 C 91 H 19 103/62 99 09/28/23 18:30 97 H 19 99 09/28/23 18:10 105/65 09/28/23 18:10 106 H 15 99 09/28/23 18:00 105 H 26 H 99 09/28/23 17:30 99 H 25 H 99 09/28/23 17:28 97 09/28/23 17:20 12 86 L 09/28/23 17:19 97 09/28/23 17:12 127 H 09/28/23 17:11 126 H 22 09/28/23 16:27 36.5 C 115 H 24 125/102 H 99 O2 Del Method O2 Flow Rate 09/28/23 20:45 Room Air 09/28/23 18:30 09/28/23 18:10 09/28/23 18:10 09/28/23 18:00 09/28/23 17:30 09/28/23 17:28 Nasal Cannula 2 09/28/23 17:20 Room Air 09/28/23 17:19 Room Air 09/28/23 17:12 09/28/23 17:11 09/28/23 16:27 Room Air Laboratory Results Laboratory Results WBC 2.77 K/ul (4.8-10.8) L 09/28/23 17:06 RBC 4.40 M/uL (4.20-5.40) 09/28/23 17:06 Hgb 14.9 g/dl (12.0-16.0) 09/28/23 17:06 Hct 41.8 % (37.0-47.0) 09/28/23 17:06 MCV 95.0 fL (80.0-100.0) 09/28/23 17:06 MCH 33.9 pg (25.0-34.0) 09/28/23 17:06 MCHC 35.6 g/dL (32.0-36.0) 09/28/23 17:06 RDW Std Deviation 51.6 fL (36.4-46.3) H 09/28/23 17:06 RDW Coeff of [place]ay[place] 14.7 % (11.5-14.5) H 09/28/23 17:06 Plt Count 123 K/uL (130-400) L 09/28/23 17:06 MPV 8.8 fL (9.4-12.4) L 09/28/23 17:06 Immature Gran % (Auto) 0.4 % 09/28/23 17:06 Neut % (Auto) 20.6 % 09/28/23 17:06 Lymph % (Auto) 56.3 % 09/28/23 17:06 Early % (Auto) 19.9 % 09/28/23 17:06 Eos % (Auto) 1.4 % 09/28/23 17:06 Baso % (Auto) 1.4 % 09/28/23 17:06 Neut # (Auto) 0.57 K/uL (1.40-6.50) L* 09/28/23 17:06 Lymph # (Auto) 1.56 K/uL (1.20-3.40) 09/28/23 17:06 Early # (Auto) 0.55 K/uL (0.11-0.59) 09/28/23 17:06 Eos # (Auto) 0.04 K/uL (0.00-0.50) 09/28/23 17:06 Baso # (Auto) 0.04 K/uL (0.00-0.20) 09/28/23 17:06 Immature Gran # (Auto) 0.01 K/uL (0.01-0.20) 09/28/23 17:06 PT 11.2 Seconds (9.0-12.0) 09/28/23 17:06 INR 1.0 (0.9-1.1) 09/28/23 17:06 VBG pH 7.54 (7.36-7.41) H 09/28/23 17:06 VBG pCO2 22 mmHg (38-50) L 09/28/23 17:06 VBG pO2 62 mmHg 09/28/23 17:06 VBG HCO3 19 mmol/L 09/28/23 17:06 VBG O2 Saturation 92.7 % 09/28/23 17:06 VBG Base Excess -1.8 mEq/L 09/28/23 17:06 Sodium 141 mmol/L (136-145) 09/28/23 17:06 Potassium 3.8 mmol/L (3.5-5.1) 09/28/23 17:06 Chloride 109 mmol/L (98-107) H 09/28/23 17:06 Carbon Dioxide 19 mmol/L (21-32) L 09/28/23 17:06 Anion Gap 13 (3-11) H 09/28/23 17:06 BUN 4 mg/dl (6-23) L 09/28/23 17:06 Creatinine 0.55 mg/dl (0.6-1.2) L 09/28/23 17:06 Est Cr Clr Drug Dosing 123.3 ml/min 09/28/23 17:06 Est GFR ( Amer) 145.9 ml/min 09/28/23 17:06 Est GFR (Non-Af Amer) 125.9 ml/min 09/28/23 17:06 BUN/Creatinine Ratio 7.3 (10-20) L 09/28/23 17:06 Glucose 112 mg/dl (70-99(Fasting)) H 09/28/23 17:06 Calcium 8.4 mg/dl (8.6-10.3) L 09/28/23 17:06 Phosphorus 2.2 mg/dl (2.5-4.9) L 09/28/23 17:06 Magnesium 1.8 mg/dl (1.7-2.4) 09/28/23 17:06 Total Bilirubin 0.5 mg/dl (0.2-1.0) 09/28/23 17:06 Direct Bilirubin 0.1 mg/dl (0-0.2) 09/28/23 17:06 AST 76 U/L (13-39) H 09/28/23 17:06 ALT 31 U/L (7-52) 09/28/23 17:06 Alkaline Phosphatase 100 U/L (34-104) 09/28/23 17:06 Total Protein 6.7 gm/dl (6.0-8.3) 09/28/23 17:06 Albumin 3.8 gm/dl (3.4-5.0) 09/28/23 17:06 Globulin 2.9 gm/dl (2.5-4.0) 09/28/23 17:06 Albumin/Globulin Ratio 1.3 (0.9-2) 09/28/23 17:06 Lipase 12 U/L (11-82) 09/28/23 17:06 HCG, Qual Negative (Negative) 09/28/23 17:06 Urine Color Yellow 09/28/23 17:15 Urine Appearance Clear (Clear) 09/28/23 17:15 Urine pH 6.5 (4.5-7.5) 09/28/23 17:15 Ur Specific [place] 1.005 (1.000-1.030) 09/28/23 17:15 Urine Protein Negative (Negative) 09/28/23 17:15 Urine Glucose (UA) Negative (Negative) 09/28/23 17:15 Urine Ketones Negative (Negative) 09/28/23 17:15 Urine Blood Negative (Negative) 09/28/23 17:15 Urine Nitrite Negative (Negative) 09/28/23 17:15 Urine Bilirubin Negative (Negative) 09/28/23 17:15 Urine Urobilinogen Negative (Negative) 09/28/23 17:15 Ur Leukocyte Esterase Negative (Negative) 09/28/23 17:15 Urine Opiates Screen Neg (Neg) 09/28/23 17:15 Ur Methadone, Qual Neg (Neg) 09/28/23 17:15 Urine Barbiturates Neg (Neg) 09/28/23 17:15 Ur Phencyclidine (PCP) Neg (Neg) 09/28/23 17:15 U Amphetamin/Meth Scrn Pos (Neg) H 09/28/23 17:15 MDMA (Ecstasy) Screen Pos (Neg) H 09/28/23 17:15 U Benzodiazepines Scrn Neg (Neg) 09/28/23 17:15 Ur Cocaine Metabolite Neg (Neg) 09/28/23 17:15 U Marijuana (THC) Screen Pos (Neg) H 09/28/23 17:15 Ethyl Alcohol mg/dL 441.1 mg/dl (<10.0) H 09/28/23 17:06 Impressions Chest X-Ray 09/28/23 16:42 SINGLE VIEW CHEST CLINICAL HISTORY: Generalized abdominal pain. FINDINGS: An AP, portable, upright chest radiograph is compared to study dated 06/08/2021. The cardiomediastinal silhouette is unremarkable. A calcific granuloma is again seen in the right upper lobe. The lungs and pleural spaces are otherwise clear. No pneumothorax is seen. The bony thorax is grossly intact. IMPRESSION: No active disease in the chest. ACT 112: Negative or not required by law. Electronically signed by: Fermin Hui M.D. 09/28/2023 5:35 PM Abdomen/Pelvis CT 09/28/23 16:43 CT SCAN OF THE ABDOMEN AND PELVIS WITH IV CONTRAST CLINICAL HISTORY: Intoxication. Generalized abdominal pain. Nausea and vomiting. COMPARISON STUDY: Abdominal CT dated 06/15/2021. TECHNIQUE: Following the IV administration of 94 cc of Optiray 320, CT scan of the abdomen and pelvis is performed from the lung bases to the proximal femora. Images are reviewed in the axial, sagittal, and coronal planes. IV contrast was administered without complication. A dose lowering technique was utilized adhering to the principles of ALARA. The examination is severely degraded by motion artifact. The patient was scanned 3 times in an effort to improve image quality. There is also streak artifact from the arms which could not be elevated above the abdomen or pelvis. CT DOSE: 1664.05 mGy.cm FINDINGS: Lung bases: The heart is normal in size and without pericardial effusion. The lung bases are clear. Liver: The contrast-enhanced liver is top normal in size and demonstrates diffusely diminished attenuation indicating steatosis. There is no intrahepatic biliary ductal dilatation. The hepatic veins and portal veins are patent. Gallbladder: Distended but otherwise normal in appearance. Spleen: Normal in size and attenuation. There is a calcified splenic granuloma. Pancreas: Unremarkable. Adrenal glands: Unremarkable. Kidneys: The contrast enhanced kidneys are normal in size and without hydronephrosis. The kidneys enhance symmetrically. Abdominal vasculature: The abdominal aorta is normal in course and caliber. Bowel: There is no bowel obstruction. Imaged portions of the appendix appear normal. This is incompletely evaluated. Peritoneum: There is no intraperitoneal free air or abdominal ascites. Lymphadenopathy: None. Pelvic viscera: The bladder and uterus are grossly unremarkable. A 3.9 cm ovarian cyst is seen on the left. Skeletal structures: No lytic or blastic lesions are seen. IMPRESSION: 1. Severely motion compromised examination. This degrades diagnostic utility. 2. No acute infectious or inflammatory findings are identified in the abdomen or pelvis on this compromised examination. 3. There is a 3.9 cm left ovarian cyst. 4. Hepatic steatosis. ACT 112: Negative or not required by law. Electronically signed by: Fermin Hui M.D. 09/28/2023 7:17 PM Diagnostic Findings EKG as per my interpretation : Rate 115, sinus tachycardia, RAD, no ischemia (1) Alcohol withdrawal Complication of substance-induced condition: uncomplicated Qualified Code(s): F10.230 - Alcohol dependence with withdrawal, uncomplicated
[2023-09-28] MEDS ORDERED: GABAPENTIN 1200MG ALCOHOL WITHDRAWAL LOAD PO STA (21:01)
[2023-09-28] MEDS ORDERED: LORazepam 3 MG in SYRINGE 1.5 ML IV PRN (21:01)
[2023-09-28] MEDS ORDERED: Ativan IV Alcohol Withdrawal--Active Protocol IV PRN (21:01)
[2023-09-28] MEDS: GABAPENTIN 600 MG TAB PO ONE (21:58)
[2023-09-28] MEDS: MAGNESIUM SULFATE / D5W 1 GM/100 ML BAG IV ONE (21:58)
[2023-09-29] MEDS: LACTATED RINGER'S 1,000 ML IV ONE (03:28)
[2023-09-29] MEDS: GABAPENTIN 600 MG TAB PO SCH (03:28)
[2023-09-29] MEDS: LORazepam 1 MG in SYRINGE 0.5 ML IV PRN (03:31)
[2023-09-29] MEDS: ACETAMINOPHEN 500 MG TAB PO PRN (04:39)
[2023-09-29 04:48] LABS: Hematocrit (blood only) 34.6 % (37.0-47.0); Hemoglobin 11.8 g/dl (12.0-16.0); Mean Corpuscular Hemoglobin 33.5 pg (25.0-34.0); Mean Corpuscular Hgb Conc 34.1 g/dL (32.0-36.0); Mean Corpuscular Volume 98.3 fL (80.0-100.0); Mean Platelet Volume 8.8 fL (9.4-12.4); Platelet Count 108 K/uL (130-400); RDW Coefficient of Variation 14.9 % (11.5-14.5); RDW Standard Deviation 54.2 fL (36.4-46.3); Red Blood Count 3.52 M/uL (4.20-5.40); White Blood Count 2.79 K/ul (4.8-10.8)
[2023-09-29 04:56] LABS: Albumin Globulin Ratio 1.3 (0.9-2); Albumin Level 2.8 gm/dl (3.4-5.0); BUN Creatinine Ratio 9.6 (10-20); Bilirubin,Total 0.6 mg/dl (0.2-1.0); Calcium 7.5 mg/dl (8.6-10.3); Creatinine Clr Calc Pharmacy 130.4 ml/min; Est GFR (African American) 148.6 ml/min; Est GFR (Non-African American) 128.2 ml/min; Globulin 2.1 gm/dl (2.5-4.0); Potassium 3.8 mmol/L (3.5-5.1); Total Protein 4.9 gm/dl (6.0-8.3)
[2023-09-29] MEDS: busPIRone 5 MG TAB PO PRN (05:18)
[2023-09-29 05:42] LABS: Basophils # (auto) 0.02 K/uL (0.00-0.20); Basophils % (auto) 0.7 %; Eosinophils # (auto) 0.06 K/uL (0.00-0.50); Eosinophils % (auto) 2.2 %; Lymphocytes # (auto) 1.43 K/uL (1.20-3.40); Lymphocytes % (auto) 51.3 %; Monocytes % (auto) 17.9 %; Neutrophils # (auto) 0.78 K/uL (1.40-6.50); Neutrophils % (auto) 27.9 %
[2023-09-29] MEDS: LORazepam 2 MG in SYRINGE 1 ML IV PRN (06:29)
[2023-09-29] MEDS: oxyCODONE HCL IR 5 MG TAB (IMMEDIATE RELEASE) PO PRN ×2 (07:22→15:55)
[2023-09-29] MEDS: FAMOTIDINE 10 MG TABLET PO SCH (07:23)
[2023-09-29] MEDS: MULTIVITAMIN TAB PO SCH (07:23)
[2023-09-29] MEDS: FOLIC ACID 1 MG TAB PO SCH (07:23)
[2023-09-29] MEDS: THIAMINE HCL 100 MG TAB PO SCH (07:23)
[2023-09-29] MEDS ORDERED: chlordiazePOXIDE ALCOHOL WITHDRAWL 50MG PO STA (07:53)
--- NOTE | 2023-09-29 08:02 | Electrocardiogram Report ---
Test Reason : Blood Pressure : / mmHG Vent. Rate : 116 BPM Atrial Rate : 116 BPM P-R Int : 120 ms QRS Dur : 070 ms QT Int : 338 ms P-R-T Axes : 073 091 083 degrees QTc Int : 469 ms Sinus tachycardia Rightward axis Borderline ECG When compared with ECG of 29-MAY-2020 06:17, Nonspecific T wave abnormality no longer evident in Anterior leads Confirmed by Samir Bejarano ([id number]) on 09/29/2023 8:01:40 AM Referred By: REFERRED SELF Confirmed By:Darian Bejarano
[2023-09-29 08:37] LABS: Phosphorus 3.5 mg/dl (2.5-4.9)
[2023-09-29] MEDS: PANTOprazole 40 MG in SYRINGE 0 ML IV SCH (08:59)
[2023-09-29] MEDS: chlordiazePOXIDE HCl 25 MG CAP PO SCH (09:00)
[2023-09-29] MEDS: ONDANSETRON INJ 2 MG/ML 2 ML VIAL IV PRN (14:14)
--- NOTE | 2023-09-29 16:51 | Hospitalist Progress Note ---
Date of Service September 29, 2023 Assessment & Plan (1) Alcohol withdrawal: Plan: per admitting service notes with addendum: Abdominal pain possibly from alcoholic gastritis, possible PUD - CT abd: no acute pancreatitis Lipase normal - Protonix IV Sucralfate QID Famotidine PO Clear liquids, IV NSS - GI consulted Alcohol Intoxication - Librium Taper, Alcohol Withdrawal protocol including Ativan (+) UDS - methamphetamine, MDMA, Cannabis - monitor for withdrawal mild alcoholic hepatitis, good prognosis with negative computed Maddrey's DF - follow LFTS chronic pancytopenia secondary to chronic liver disease, hemoglobin better than baseline likely secondary to hemoconcentration anxiety/mood disorder, at baseline substance abuse ongoing tobacco abuse Nicotine patch PRN DVT prophylaxis. SCDs RE thrombocytopenia Full code plan of care discussed with patient in detail and at length all questions answered she is understanding, agreeable, comfortable with the plan of care Admission and Anticipated Discharge Date Admission Date: September 28, 2023 Subjective ff up for epigastric pain, nausea/vomiting, etc seen with ANNETTE Read at bedside throughout whole encounter states she is still having persistent, sharp epigastric pain, nausea (+) multiple episodes of emesis at home for the past 5 days no fever/chills no chest pain, dyspnea, palpitations, dizziness reports having sweats, feels skin is burning but no tremors, anxiety, confusion no other new symptoms Review of Systems Review of Systems: all noted and negative except for above Physical Exam Physical Exam: General- oriented x 3, not in distress, speaks in sentences with no effort or accessory muscle use Eyes- anicteric Neck- no JVD Lungs- clear breath sounds bilaterally, no rales/wheezes Heart- normal rate, regular rhythm; no murmurs Abdomen- normal bowel sounds, nondistended, soft, moderate epigastric tenderness Extremities- no pretibial edema, no calf tenderness Neuro- alert, oriented x 3; no gross focal neurologic deficits Skin- warm & dry Results & Data Results & Data Vital Signs (Past 12 Hours) Vital Signs Temp Pulse Pulse Resp BP BP Pulse Ox 09/29/23 13:08 36.7 C 109 H 15 111/79 97 09/29/23 08:57 101 H 18 96/66 L 99 09/29/23 07:11 119 H 09/29/23 07:01 123 H 18 107/79 100 O2 Del Method O2 Flow Rate 09/29/23 13:08 Nasal Cannula 2 09/29/23 08:57 Nasal Cannula 2 09/29/23 07:11 09/29/23 07:01 Nasal Cannula 2 all noted and reviewed including below (1) Alcohol withdrawal Complication of substance-induced condition: uncomplicated Qualified Code(s): F10.230 - Alcohol dependence with withdrawal, uncomplicated
[2023-09-29] MEDS: SODIUM CHLORIDE 0.9% 1,000 ML IV SCH (16:59)
[2023-09-29] MEDS: SUCRALFATE 1 GM/10 ML UDC PO SCH (17:50)
[2023-09-29] MEDS ORDERED: GABAPENTIN 600 MG TAB PO SCH (18:00)
[2023-09-29] MEDS: PROMETHAZINE HCL 6.25 MG in SODIUM CHLORIDE 0.9% 50 ML IV PRN (21:39)
--- OUTSIDE RECORDS SUMMARY | 2023-09-30 02:41 | External Medical Summary | Continuity of Care Document ---
Author Name Unknown Organization [facility] [address] [id number] Address [address] [place] [address] [id number] Encounter [facility] [id number] Date(s): 09/14/23 - 09/14/23 [facility] [address] [facility] [address] [facility] Sports Medicine [address] [place] [address], [address] [id number] Encounter Diagnosis Right wrist sprain(Discharge Diagnosis) - 09/14/23 Discharge Disposition: Home or Self Care Attending Physician: MD Romo Philip J Allergies, Adverse Reactions, Alerts No Known Medication Allergies Assessment and Plan Extracted from: Title:Orthopaedics Office Visit Note Author:Gina bhatia MD, Julien Bliss Date:09/14/23 1.Right wrist sprain Dinora has been fittedwith a neutral wrist splint.I have asked her to wear this at all times except forshowering andbathing. She may also come out of this to work on range of motion activitiesof the wrist. She may continue withice and [id number] anti-inflammatories for pain control. She will follow-up in 2 to 3 weeks for repeatx-rays. Of asked her to contact the office or follow-up sooner if she notes significant worsening in her symptoms in the meantime. Medications No Known Medications Mental Status 09/14/23 Barriers to Learning one year None evide nt Mandatory Health Literacy Documentation Yes Health Literacy Communication Barriers N ever Primary Language Setswana Problem List Condition Confirmation Course Effective Dates Status Health St atus Informant Right wrist sprain Confirmed Active Diagnosis Diagnosis Type Effective Dates Health [facility] Service Informant Right wrist sprain Discharge Diagnosis 09/14/23 Vital Signs Most recent to oldest [Reference Range]: 1 Height 164.7 cm (09/14/23 2:19 PM) Patient Weight 55.4 kg (09/14/23 2:19 PM) Body Mass Index 20.42 kg/m2 (09/14/23 2:19 PM) Social History Social History Type Response Smoking Status Current every day he jodi smoker Sex Female Ortho Outpt Note * MD Demetrius, Julien Bliss: PERFORM Event Display: Ortho Outpt Note Authored Date: [id number] Chief Complaint Injured right wrist when she fell after jumping from a swing History of Present Illness Dinora is a 28-year-old right-handedfemale seen for evaluation of a right wrist injurythat occurred3 days agowhen she fell on an outstretchedright hand. She noticed pain in thewrist and was seen in the emergency roomduring the morning of 09/12. Her x-rays were equivocal for afracture as herER notes indicate afracture but the formal reading does not show afracture. She wasfitted with aplaster splint, and has been applyingice to the wrist, but has noticed persistentpain andstiffness. Past medical history: Unremarkable Past surgical historyis significant for left wrist and rightelbow surgery Review of Systems Positive for depression, anxiety, and complaints mentioned in the history of present illness. Allother systems are negative. Physical Exam Vitals & Measurements HT:164.7cm WT:55.400kg(Dosing) WT:55.4kg BMI:20.42 General: Appears well. Right wrist:Diffuse soft tissue swelling is noted over the dorsum of thewrist. She istenderover the radial styloid. No snuffbox tenderness. She is able toflex and extend the wrist about 5 degrees in each direction. She is able to make a fist but feels limited byswelling. Distalsensation is intact. Diagnostic Results X-rays from the emergency room and been reviewed. No obvious fractures are noted, but it is difficult to rule out anondisplaced fracture at theulnar aspect of the distal radius. Assessment/Plan 1.Right wrist sprain Dinora has been fittedwith a neutral wrist splint.I have asked her to wear this at all times except howering andbathing. She may also come out of this to work on range of motion activitiesof the wrist. She may continue withice and [id number] anti-inflammatories for pain control. She will follow-up in 2 to 3 weeks for repeatx-rays. Of asked her to contact the office or follow-up sooner if she notes significant worsening in her symptoms in the meantime. Problem List/Past Medical History Ongoing Right wrist sprain Allergies No Known Medication Allergies Social History Smoking Status Current every day heavy smoker Recommendations Health Maintenance Pending(in the next year) OverDue Adult Influenza Vaccine due11/12/22and every 1year Due Adult Folic Acid Supplementation due09/14/23and every 3year Satisfied(in the past 1 year) There are no satisfied recommendations within the defined date range Electronic Signature on File Electronically Reviewed/Signed by: Julien Romo MD Author Signature Dt/Tm:09/14/2023 05:27 PM Division of Sports Medicine [facility]
--- NOTE | 2023-09-30 10:03 | Gastrointestinal Consultation ---
Date of Consultation September 30, 2023 Assessment & Plan (1) Epigastric pain: (2) Nausea & vomiting: (3) Alcohol abuse: Plan Patient is a 28 year old female who is admitted with history of abdominal pain, nausea, and vomiting that started earlier this week. she is a daily ETOH use. Suspect that her symptoms are related to gastritis. - advise cessation of ETOH use. - continue with famotidine 10mg bid, protonix 40mg IV BID, and carafate 1gm qid. she only started these medications yesterday. Can monitor how she does with these. - continue with alcohol withdraw protocol. Supervising Physician Co-Signing Physician Notes Agree with MERLE Vitale as above Interviewed and examined patient and agree with above Abd: Soft, NT, ND, +BS Continue current therapy and supportive care No plans for invasive GI workup at this time History of Present Illness Reason for Consultation: epigastric pain, nausea, vomiting. Requesting Physician: Rex Garsia MD Attending Physician: Rex Garsia MD History of Present Illness Patient is a 28 year old woman with past medical history of polysubstance abuse, alcohol abuse, pancreatitis, and bipolar disorder who presented to the emergency department via EMS on 09/27 for evaluation of ongoing intractable nausea and vomiting and abdominal pain over the preceding 4 days. She admits that she does drink alcohol - per chart, she drinks every day and will drink a half liter of hard liquor daily. At time of seeing patient she tells me she is having diffuse pain throughout her body and asks me for stronger pain medication than morphine. she admits to chronic back pain. she tells me that since admission, her vomiting has improved though she still feels abdominal pain and nausea. She seems lethargic this morning and it is difficult obtaining history due to this. Per nursing, she does appear to be in withdrawl. CR 09/27 fatty liver, no acute infectious or inflammatory findings. Allergies Allergy/AdvReac Type Severity Reaction Status Date / Time lamotrigine [From Lamictal] Allergy Mild Rash Verified 09/28/23 19:48 amairani Allergy Mild GUMS SWELL Verified 09/28/23 19:48 mushroom Allergy Mild GUMS SWELL Verified 09/28/23 19:48 ketorolac [From Toradol] AdvReac Mild Irritable Verified 09/28/23 19:48 Home Medications Medication Instructions Recorded Confirmed Type buspirone 10 mg tablet 10 mg PO BID PRN Anxiety 08/24/22 09/28/23 History multivitamin 1 tab PO DAILY 09/28/23 09/28/23 History Patient History Medical History Alcohol abuse Closed fracture of right olecranon process Closed fracture of left distal radius Tobacco use disorder Mood disorder Recurrent pancreatitis Surgical History History of D&C x 3 Family History Other No significant family history Social History Smoking Status: Current every day smoker Tobacco Type: Cigarettes Cigarettes Per Day: 3-4; Second Hand Exposure: No; Do You Dip or Chew Tobacco: No; Hx Alcohol Use: Yes Alcohol type: other Hx Substance Use: No Preferred Language: Moroccan Communication Ability: Effective Visual Impairment: No Limitations Putty Tinter Maker Required: No Beliefs That Will Affect Care: None marital status: Single marital status details: Jason (43) [phone] Current Living Situation: Spouse Current Living Situation Comment: lives with FOB, no pets. current occupational status: unemployed Other Information That Helps Us Care for You: No Feels Safe at Home: No Is there a partner from a previous relationship who is making you feel unsafe now?: No Safety Concerns: Afraid for Self Assistive Devices: None Review of Systems Review of Systems: unable to obtain due to patient being lethargic. Physical Exam Constitutional: WD/WN, vitals as above Respiratory: normal respiratory effort, lungs clear to auscultation Cardiovascular: RRR, no murmur, no edema Gastrointestinal (Abdomen): epigastric tenderness to palpaiton, no guarding, soft. normal bowel sounds. Psychiatric: patient is lethargic. Results & Data Vital Signs (Past 12 Hours) Vital Signs Temp Pulse Pulse Resp BP BP Pulse Ox 09/30/23 09:33 82 09/30/23 08:14 97.5 F L 63 18 108/73 100 09/30/23 05:35 97.9 F 81 16 121/84 100 09/30/23 01:42 98.1 F 69 16 119/82 100 09/30/23 00:31 09/29/23 23:50 98.2 F 84 18 107/74 99 09/29/23 23:21 98.4 F 89 18 105/66 100 09/29/23 22:59 85 09/29/23 22:01 94 H O2 Del Method O2 Flow Rate 09/30/23 09:33 09/30/23 08:14 Nasal Cannula 1.5 09/30/23 05:35 Room Air 09/30/23 01:42 Room Air 09/30/23 00:31 Room Air 09/29/23 23:50 Room Air 09/29/23 23:21 Nasal Cannula 2 09/29/23 22:59 09/29/23 22:01 Coding Level of Care Code 55995 IN/OBS CONSULT LVL 3,45M Diagnoses Epigastric pain R10.13 Nausea & vomiting R11.2 Alcohol abuse F10.10
[2023-09-30] MEDS: chlordiazePOXIDE HCl 25 MG CAP PO SCH (11:54)
--- NOTE | 2023-09-30 19:39 | Hospitalist Progress Note ---
Date of Service September 30, 2023 Assessment & Plan (1) Alcohol withdrawal: Plan: per admitting service notes with addendum: Abdominal pain possibly from alcoholic gastritis, possible PUD - CT abd: no acute pancreatitis Lipase normal - Protonix IV Sucralfate QID Famotidine PO Clear liquids, IV NSS - GI consulted 09/29 GI consulted Recommend continue medical management for now Monitor closely Alcohol Intoxication - Librium Taper, Alcohol Withdrawal protocol including Ativan 09/29 Continue alcohol withdrawal protocol (+) UDS - methamphetamine, MDMA, Cannabis - monitor for withdrawal mild alcoholic hepatitis, good prognosis with negative computed Maddrey's DF - follow LFTS chronic pancytopenia secondary to chronic liver disease, hemoglobin better than baseline likely secondary to hemoconcentration anxiety/mood disorder, at baseline substance abuse ongoing tobacco abuse Nicotine patch PRN DVT prophylaxis. SCDs RE thrombocytopenia Full code plan of care discussed with patient in detail and at length all questions answered she is understanding, agreeable, comfortable with the plan of care Admission and Anticipated Discharge Date Admission Date: September 28, 2023 Subjective Follow-up for epigastric pain, alcohol withdrawal, etc. Seen with ANNETTE Araiza throughout whole encounter Seen resting in bed, sleeping, comfortable, easily awakened States she still has epigastric pain Has mild tremors, some anxiety, no confusion No chest pain, palpitations, dizziness No other new symptom Review of Systems Review of Systems: all noted and negative except for above Physical Exam Physical Exam: General- oriented x 3, not in distress, speaks in sentences with no effort or accessory muscle use Eyes- anicteric Neck- no JVD Lungs- clear breath sounds bilaterally, no rales/wheezes Heart- normal rate, regular rhythm; no murmurs Abdomen- normal bowel sounds, nondistended, soft, Mild epigastric tenderness Extremities- no pretibial edema, no calf tenderness Neuro- alert, oriented x 3; no gross focal neurologic deficits Skin- warm & dry Results & Data Results & Data Vital Signs (Past 12 Hours) Vital Signs Temp Pulse Pulse Resp BP Pulse Ox O2 Del Method 09/30/23 18:00 62 09/30/23 15:29 36.7 C 62 18 105/61 98 Nasal Cannula 09/30/23 11:50 36.7 C 87 18 111/76 94 Nasal Cannula 09/30/23 09:33 82 09/30/23 08:14 36.4 C L 63 18 108/73 100 Nasal Cannula O2 Flow Rate 09/30/23 18:00 09/30/23 15:29 1.5 09/30/23 11:50 1.5 09/30/23 09:33 09/30/23 08:14 1.5 all noted and reviewed including below (1) Alcohol withdrawal Complication of substance-induced condition: uncomplicated Qualified Code(s): F10.230 - Alcohol dependence with withdrawal, uncomplicated
[2023-09-30 21:34] LABS: Hematocrit (blood only) 35.5 % (37.0-47.0); Hemoglobin 12.4 g/dl (12.0-16.0); Mean Corpuscular Hemoglobin 33.5 pg (25.0-34.0); Mean Corpuscular Hgb Conc 34.9 g/dL (32.0-36.0); Mean Corpuscular Volume 95.9 fL (80.0-100.0); Mean Platelet Volume 9.6 fL (9.4-12.4); Platelet Count 92 K/uL (130-400); RDW Coefficient of Variation 13.5 % (11.5-14.5); RDW Standard Deviation 48.3 fL (36.4-46.3); White Blood Count 2.66 K/ul (4.8-10.8)
[2023-09-30 21:40] LABS: Basophils # (auto) 0.02 K/uL (0.00-0.20); Basophils % (auto) 0.8 %; Eosinophils # (auto) 0.09 K/uL (0.00-0.50); Eosinophils % (auto) 3.4 %; Lymphocytes # (auto) 1.32 K/uL (1.20-3.40); Lymphocytes % (auto) 49.6 %; Monocytes # (auto) 0.36 K/uL (0.11-0.59); Monocytes % (auto) 13.5 %; Neutrophils # (auto) 0.87 K/uL (1.40-6.50); Neutrophils % (auto) 32.7 %
[2023-09-30 21:43] LABS: Albumin Globulin Ratio 1.4 (0.9-2); Albumin Level 3.3 gm/dl (3.4-5.0); BUN Creatinine Ratio 4.7 (10-20); Bilirubin,Total 1.1 mg/dl (0.2-1.0); Calcium 8.6 mg/dl (8.6-10.3); Creatinine Clr Calc Pharmacy 105.9 ml/min; Est GFR (African American) 138.8 ml/min; Est GFR (Non-African American) 119.7 ml/min; Globulin 2.4 gm/dl (2.5-4.0); Potassium 3.7 mmol/L (3.5-5.1); Total Protein 5.7 gm/dl (6.0-8.3)
[2023-09-30] MEDS ORDERED: GABAPENTIN 600 MG TAB PO SCH (22:00)
[2023-10-01 07:36] LABS: Albumin Globulin Ratio 1.4 (0.9-2); Albumin Level 3.2 gm/dl (3.4-5.0); BUN Creatinine Ratio 4.9 (10-20); Bilirubin,Total 0.8 mg/dl (0.2-1.0); Calcium 8.3 mg/dl (8.6-10.3); Est GFR (Non-African American) 121.7 ml/min; Globulin 2.3 gm/dl (2.5-4.0); Potassium 3.3 mmol/L (3.5-5.1); Total Protein 5.5 gm/dl (6.0-8.3)
[2023-10-01] MEDS: chlordiazePOXIDE HCl 25 MG CAP PO SCH (09:16)
[2023-10-01] MEDS ORDERED: LORazepam 1 MG/1 ML SYR ED Inj Use IV STA (15:43)
[2023-10-01] MEDS: LORazepam 0.5 MG in SYRINGE 0.25 ML IV STA (15:55)
[2023-10-01] MEDS: ALUMINUM/MAGNESIUM SUSP 30 ML UDC PO STA (16:03)
[2023-10-01] MEDS: POTASSIUM CHLORIDE 20 MEQ/15 ML UDC PO STA (16:25)
[2023-10-01] MEDS: POTASSIUM CHLORIDE / WTR 10 MEQ/100 ML PLCT IV SCH (16:35)
--- NOTE | 2023-10-01 18:50 | Hospitalist Progress Note ---
Date of Service October 01, 2023 Assessment & Plan (1) Alcohol withdrawal: Plan: per admitting service notes with addendum: Abdominal pain possibly from alcoholic gastritis, possible PUD - CT abd: no acute pancreatitis Lipase normal - Protonix IV Sucralfate QID Famotidine PO Clear liquids, IV NSS - GI consulted 09/29 GI consulted Recommend continue medical management for now Monitor closely 09/30 Advance diet to soft Continue Protonix, etc. Monitor closely Alcohol Intoxication - Librium Taper, Alcohol Withdrawal protocol including Ativan 09/29 Continue alcohol withdrawal protocol 09/30 Continue alcohol withdrawal protocol including Librium, as needed Ativan (+) UDS - methamphetamine, MDMA, Cannabis - monitor for withdrawal mild alcoholic hepatitis, good prognosis with negative computed Maddrey's DF - follow LFTS chronic pancytopenia secondary to chronic liver disease, hemoglobin better than baseline likely secondary to hemoconcentration anxiety/mood disorder - Consulted and discussed with psych service Advised one-to-one is not indicated at this point as per psych service substance abuse ongoing tobacco abuse - counselling Nicotine patch PRN DVT prophylaxis. Lovenox SC Full code plan of care discussed with patient in detail all questions answered she is understanding, agreeable, comfortable with the plan of care Admission and Anticipated Discharge Date Admission Date: September 28, 2023 Subjective Follow-up for epigastric pain, alcohol intoxication/withdrawal, etc. Seen with RN at the bedside throughout encounter States she still has epigastric pain but seems to be improving Requesting to advance diet Reports some tremors, worsening depression and anxiety When asked if she has thoughts of harming herself she said that she has been wishing that she will just not wake up Patient tearful, reassured She is requesting to speak with psychiatry service, patient informed psychiatry service will be consulted and should talk to her soon Review of Systems Review of Systems: all noted and negative except for above Physical Exam Physical Exam: General- oriented x 3, not in distress, speaks in sentences with no effort or accessory muscle use Eyes- anicteric Neck- no JVD Lungs- clear breath sounds bilaterally, no rales/wheezes Heart- normal rate, regular rhythm; no murmurs Abdomen- normal bowel sounds, nondistended, soft, No tenderness Extremities- no pretibial edema, no calf tenderness No tremors Neuro- alert, oriented x 3; no gross focal neurologic deficits Skin- warm & dry Results & Data Results & Data Vital Signs (Past 12 Hours) Vital Signs Temp Pulse Pulse Resp BP Pulse Ox O2 Del Method 10/01/23 16:11 36.8 C 75 17 128/87 100 Room Air 10/01/23 14:47 55 L 10/01/23 08:51 36.6 C 78 17 103/65 100 Room Air 10/01/23 07:26 81 all noted and reviewed including below (1) Alcohol withdrawal Complication of substance-induced condition: uncomplicated Qualified Code(s): F10.230 - Alcohol dependence with withdrawal, uncomplicated
[2023-10-02 06:38] LABS: Basophils # (auto) 0.02 K/uL (0.00-0.20); Basophils % (auto) 0.5 %; Eosinophils # (auto) 0.12 K/uL (0.00-0.50); Eosinophils % (auto) 2.9 %; Hematocrit (blood only) 35.4 % (37.0-47.0); Hemoglobin 12.4 g/dl (12.0-16.0); Immature Granulocytes # (auto) 0.01 K/uL (0.01-0.20); Immature Granulocytes % (auto) 0.2 %; Lymphocytes # (auto) 2.05 K/uL (1.20-3.40); Lymphocytes % (auto) 49.6 %; Mean Platelet Volume 9.7 fL (9.4-12.4); Monocytes # (auto) 0.43 K/uL (0.11-0.59); Monocytes % (auto) 10.4 %; Neutrophils % (auto) 36.4 %; Platelet Count 80 K/uL (130-400); RDW Coefficient of Variation 13.7 % (11.5-14.5); RDW Standard Deviation 49.1 fL (36.4-46.3); Red Blood Count 3.65 M/uL (4.20-5.40); White Blood Count 4.13 K/ul (4.8-10.8)
--- NOTE | 2023-10-02 06:52 | Communication Note ---
Date of Service: October 02, 2023 Patient found to have pill at bedside (appears to be an Excedrin tablet as per RN account). Patient not confused. Patient admitted to RN that she asked her boyfriend to give her Excedrin because she does not feel her pain is being managed well. Patient educated about hospital policy regarding prohibiting self administration of home medications by patients. Patient requested for inpatient Psych eval for anxiety and depression.
[2023-10-02 07:00] LABS: Albumin Globulin Ratio 1.5 (0.9-2); Albumin Level 3.5 gm/dl (3.4-5.0); BUN Creatinine Ratio 5.2 (10-20); Bilirubin,Total 0.8 mg/dl (0.2-1.0); Calcium 8.9 mg/dl (8.6-10.3); Creatinine Clr Calc Pharmacy 118.9 ml/min; Est GFR (African American) 143.4 ml/min; Est GFR (Non-African American) 123.7 ml/min; Globulin 2.3 gm/dl (2.5-4.0); Potassium 3.5 mmol/L (3.5-5.1); Total Protein 5.8 gm/dl (6.0-8.3)
[2023-10-02] MEDS ORDERED: GABAPENTIN 600 MG TAB PO SCH (09:00)
--- NOTE | 2023-10-02 17:15 | Hospitalist Progress Note ---
Date of Service October 02, 2023 Assessment & Plan (1) Alcohol withdrawal: Plan: per admitting service notes with addendum: Abdominal pain possibly from alcoholic gastritis, possible PUD - CT abd: no acute pancreatitis Lipase normal - Protonix IV Sucralfate QID Famotidine PO Clear liquids, IV NSS - GI consulted 09/29 GI consulted Recommend continue medical management for now Monitor closely 09/30 Advance diet to soft Continue Protonix, etc. Monitor closely Alcohol Intoxication - Librium Taper, Alcohol Withdrawal protocol including Ativan 09/29 Continue alcohol withdrawal protocol 09/30 Continue alcohol withdrawal protocol including Librium, as needed Ativan 10/01 Stable Continue alcohol withdrawal protocol (+) UDS - methamphetamine, MDMA, Cannabis - monitor for withdrawal mild alcoholic hepatitis, good prognosis with negative computed Maddrey's DF - follow LFTS chronic pancytopenia secondary to chronic liver disease, hemoglobin better than baseline likely secondary to hemoconcentration anxiety/mood disorder - Consulted and discussed with psych service Advised one-to-one is not indicated at this point as per psych service No signs mood improving Psych on board substance abuse ongoing tobacco abuse - counselling Nicotine patch PRN DVT prophylaxis. SCDS Encouraged to ambulate frequently Full code plan of care discussed with patient in detail all questions answered she is understanding, agreeable, comfortable with the plan of care Admission and Anticipated Discharge Date Admission Date: September 28, 2023 Subjective Follow-up for epigastric pain, alcohol withdrawal, etc. Seen with ANNETTE Edwards at bedside throughout whole encounter Seen sitting up, comfortable, not in distress Using her laptop In good spirits States she feels improved today Less epigastric pain, tolerating food Mood is also improving No other new symptoms States she is interested to going to inpatient alcohol/substance abuse Review of Systems Review of Systems: all noted and negative except for above Physical Exam Physical Exam: General- oriented x 3, not in distress, speaks in sentences with no effort or accessory muscle use Eyes- anicteric Neck- no JVD Lungs- clear breath sounds bilaterally, no rales/wheezes Heart- normal rate, regular rhythm; no murmurs Abdomen- normal bowel sounds, nondistended, soft, nontender Extremities- no pretibial edema, no calf tenderness No tremors Neuro- alert, oriented x 3; no gross focal neurologic deficits Skin- warm & dry Results & Data Results & Data Vital Signs (Past 12 Hours) Vital Signs Temp Pulse Pulse Resp BP BP Pulse Ox 10/02/23 16:02 36.6 C 85 18 128/87 98 10/02/23 15:27 86 10/02/23 11:48 37.0 C 83 18 120/82 100 10/02/23 08:18 36.6 C 92 H 18 123/86 99 10/02/23 07:14 79 O2 Del Method O2 Flow Rate 10/02/23 16:02 Room Air 10/02/23 15:27 10/02/23 11:48 Room Air 10/02/23 08:18 Nasal Cannula 1 10/02/23 07:14 all noted and reviewed including below (1) Alcohol withdrawal Complication of substance-induced condition: uncomplicated Qualified Code(s): F10.230 - Alcohol dependence with withdrawal, uncomplicated
[2023-10-03 06:15] LABS: Basophils # (auto) 0.02 K/uL (0.00-0.20); Basophils % (auto) 0.5 %; Eosinophils % (auto) 2.3 %; Hematocrit (blood only) 37.9 % (37.0-47.0); Hemoglobin 13.4 g/dl (12.0-16.0); Immature Granulocytes # (auto) 0.02 K/uL (0.01-0.20); Immature Granulocytes % (auto) 0.5 %; Lymphocytes # (auto) 2.08 K/uL (1.20-3.40); Lymphocytes % (auto) 48.4 %; Mean Corpuscular Hgb Conc 35.4 g/dL (32.0-36.0); Mean Corpuscular Volume 96.2 fL (80.0-100.0); Monocytes # (auto) 0.42 K/uL (0.11-0.59); Monocytes % (auto) 9.8 %; Neutrophils # (auto) 1.66 K/uL (1.40-6.50); Neutrophils % (auto) 38.5 %; Platelet Count 88 K/uL (130-400); Red Blood Count 3.94 M/uL (4.20-5.40)
[2023-10-03 06:24] LABS: Albumin Globulin Ratio 1.6 (0.9-2); Albumin Level 3.5 gm/dl (3.4-5.0); BUN Creatinine Ratio 9.7 (10-20); Bilirubin,Total 0.6 mg/dl (0.2-1.0); Calcium 9.1 mg/dl (8.6-10.3); Creatinine Clr Calc Pharmacy 111.2 ml/min; Est GFR (African American) 140.2 ml/min; Globulin 2.2 gm/dl (2.5-4.0); Potassium 3.6 mmol/L (3.5-5.1); Total Protein 5.7 gm/dl (6.0-8.3)
[2023-10-03] MEDS: LORazepam 0.5 MG in SYRINGE 0.25 ML IV PRN (10:10)
[2023-10-03] MEDS: MAGNESIUM HYDROXIDE SUSP 30 ML UDC PO ONE (10:50)
--- NOTE | 2023-10-03 15:24 | Hospitalist Progress Note ---
Date of Service October 03, 2023 Assessment & Plan (1) Alcohol withdrawal: Plan: per admitting service notes with addendum: Abdominal pain possibly from alcoholic gastritis, possible PUD - CT abd: no acute pancreatitis Lipase normal - Protonix IV Sucralfate QID Famotidine PO Clear liquids, IV NSS - GI consulted 09/29 GI consulted Recommend continue medical management for now Monitor closely 09/30 Advance diet to soft Continue Protonix, etc. Monitor closely Alcohol Intoxication - Librium Taper, Alcohol Withdrawal protocol including Ativan 09/29 Continue alcohol withdrawal protocol 09/30 Continue alcohol withdrawal protocol including Librium, as needed Ativan 10/01 Stable Continue alcohol withdrawal protocol 10/02 Abdominal pain improving Continue Protonix, and sucralfate Completed alcohol withdrawal protocol (+) UDS - methamphetamine, MDMA, Cannabis - monitor for withdrawal mild alcoholic hepatitis, good prognosis with negative computed Maddrey's DF Resolved chronic pancytopenia secondary to chronic liver disease - Platelet count 123--88 K Monitor closely anxiety/mood disorder - Consulted and discussed with psych service mood improving Psych on board substance abuse ongoing tobacco abuse - Patient would like to undergo inpatient rehab licensed psychologist manager aware Nicotine patch PRN DVT prophylaxis. SCDS Encouraged to ambulate frequently Full code plan of care discussed with patient in detail all questions answered she is understanding, agreeable, comfortable with the plan of care Admission and Anticipated Discharge Date Admission Date: September 28, 2023 Subjective Follow-up for epigastric pain, alcohol withdrawal, etc. Seen with RN at the bedside throughout whole encounter Seen resting in bed, sleeping but easily awakened States she feels that she is continue to improve overall Epigastric pain improving, tolerating diet well Having some mild anxiety this morning but mood is improving overall No other new symptom Review of Systems Review of Systems: all noted and negative except for above Physical Exam Physical Exam: General- oriented x 3, not in distress, speaks in sentences with no effort or accessory muscle use Eyes- anicteric Neck- no JVD Lungs- clear breath sounds bilaterally, no rales/wheezes Heart- normal rate, regular rhythm; no murmurs Abdomen- normal bowel sounds, nondistended, soft, nontender Extremities- no pretibial edema, no calf tenderness Neuro- alert, oriented x 3; no gross focal neurologic deficits Skin- warm & dry Results & Data Results & Data Vital Signs (Past 12 Hours) Vital Signs Temp Pulse Resp BP BP Pulse Ox O2 Del Method 10/03/23 15:14 36.4 C L 92 H 18 94/65 L 99 Room Air 10/03/23 11:47 36.8 C 88 18 98/64 L 99 Room Air 10/03/23 07:47 36.6 C 79 18 100/66 100 Room Air 10/03/23 07:18 Room Air all noted and reviewed including below (1) Alcohol withdrawal Complication of substance-induced condition: uncomplicated Qualified Code(s): F10.230 - Alcohol dependence with withdrawal, uncomplicated
[2023-10-03 17:53] LABS: Amphetamine Urine, Confirm 263 ng/mL (<250); MDA negative; MDEA negative; MDMA (Ecstasy) Urine, Confirm negative; Marijuana Quant, GCMS Urine 1160 ng/mL (<5); Methamphetamine, Ur Confirm 2700 ng/mL (<250)
[2023-10-04 06:27] LABS: Hemoglobin 12.3 g/dl (12.0-16.0); Mean Corpuscular Hemoglobin 33.6 pg (25.0-34.0); Mean Corpuscular Hgb Conc 34.2 g/dL (32.0-36.0); Mean Corpuscular Volume 98.4 fL (80.0-100.0); Mean Platelet Volume 9.9 fL (9.4-12.4); Platelet Count 88 K/uL (130-400); RDW Standard Deviation 50.6 fL (36.4-46.3); Red Blood Count 3.66 M/uL (4.20-5.40)
[2023-10-04 06:52] LABS: Basophils # (auto) 0.02 K/uL (0.00-0.20); Basophils % (auto) 0.5 %; Eosinophils # (auto) 0.09 K/uL (0.00-0.50); Eosinophils % (auto) 2.2 %; Immature Granulocytes # (auto) 0.03 K/uL (0.01-0.20); Immature Granulocytes % (auto) 0.7 %; Lymphocytes # (auto) 2.11 K/uL (1.20-3.40); Lymphocytes % (auto) 51.5 %; Monocytes # (auto) 0.49 K/uL (0.11-0.59); Neutrophils # (auto) 1.36 K/uL (1.40-6.50); Neutrophils % (auto) 33.1 %
[2023-10-04 06:53] LABS: Albumin Globulin Ratio 1.4 (0.9-2); Albumin Level 3.3 gm/dl (3.4-5.0); BUN Creatinine Ratio 14.8 (10-20); Bilirubin,Total 0.5 mg/dl (0.2-1.0); Calcium 8.9 mg/dl (8.6-10.3); Creatinine Clr Calc Pharmacy 110.9 ml/min; Est GFR (Non-African American) 121.7 ml/min; Globulin 2.3 gm/dl (2.5-4.0); Potassium 3.6 mmol/L (3.5-5.1); Total Protein 5.6 gm/dl (6.0-8.3)
[2023-10-04] MEDS: DOCUSATE SODIUM/SENNA 50/8.6MG TAB PO SCH (07:40)
--- NOTE | 2023-10-04 18:27 | Hospitalist Progress Note ---
Date of Service October 04, 2023 Assessment & Plan (1) Alcohol withdrawal: Plan: per admitting service notes with addendum: Abdominal pain possibly from alcoholic gastritis, possible PUD - CT abd: no acute pancreatitis Lipase normal - Protonix IV Sucralfate QID Famotidine PO Clear liquids, IV NSS - GI consulted : Does not recommend EGD 10/03 Gradually improved Diet advanced Currently on soft diet Continue Protonix, sucralfate, famotidine Alcohol Intoxication - Librium Taper, Alcohol Withdrawal protocol including Ativan 10/03 Did well with alcohol withdrawal protocol Patient would like to transition to inpatient alcohol/substance abuse rehab Case manage on board Polysubstance abuse (+) UDS - methamphetamine, MDMA, Cannabis - monitor for withdrawal Mild alcoholic hepatitis good prognosis with negative computed Maddrey's DF Resolved Chronic pancytopenia secondary to chronic liver disease - Platelet count 123--88 K Monitor closely Anxiety/mood disorder - Consulted and discussed with psych service mood improving Psych on board Polysubstance abuse Ongoing tobacco abuse - Patient would like to undergo inpatient rehab manager life aware Nicotine patch PRN DVT prophylaxis. SCDS Encouraged to ambulate frequently Full code plan of care discussed with patient in detail all questions answered she is understanding, agreeable, comfortable with the plan of care Admission and Anticipated Discharge Date Admission Date: September 28, 2023 Subjective Follow-up for epigastric pain, alcohol intoxication, alcohol withdrawal, polysubstance abuse, etc. Seen with female RN at the bedside throughout whole encounter Resting in bed, comfortable, not in distress, in good spirits States she feels improved overall Epigastric pain continues to improve, no nausea or vomiting, tolerating soft diet well Still having some anxiety, but no suicidal ideations No other new symptoms Review of Systems Review of Systems: all noted and negative except for above Physical Exam Physical Exam: General- oriented x 3, not in distress, speaks in sentences with no effort or accessory muscle use Eyes- anicteric Neck- no JVD Lungs- clear breath sounds bilaterally, no rales/wheezes Heart- normal rate, regular rhythm; no murmurs Abdomen- normal bowel sounds, nondistended, soft, No tenderness Extremities- no pretibial edema, no calf tenderness No tremors Neuro- alert, oriented x 3; no gross focal neurologic deficits Skin- warm & dry Results & Data Results & Data Vital Signs (Past 12 Hours) Vital Signs Temp Pulse Resp BP BP Pulse Ox O2 Del Method 10/04/23 16:01 36.9 C 86 17 136/72 98 Room Air 10/04/23 11:28 36.5 C 82 18 94/55 L 100 Room Air 10/04/23 08:03 36.6 C 80 18 95/54 L 96 Room Air all noted and reviewed including below (1) Alcohol withdrawal Complication of substance-induced condition: uncomplicated Qualified Code(s): F10.230 - Alcohol dependence with withdrawal, uncomplicated
[2023-10-05 06:40] LABS: Hematocrit (blood only) 35.5 % (37.0-47.0); Hemoglobin 12.3 g/dl (12.0-16.0); Mean Corpuscular Hemoglobin 34.1 pg (25.0-34.0); Mean Corpuscular Hgb Conc 34.6 g/dL (32.0-36.0); Mean Corpuscular Volume 98.3 fL (80.0-100.0); Mean Platelet Volume 10.1 fL (9.4-12.4); Platelet Count 107 K/uL (130-400); RDW Coefficient of Variation 13.9 % (11.5-14.5); RDW Standard Deviation 50.4 fL (36.4-46.3); Red Blood Count 3.61 M/uL (4.20-5.40); White Blood Count 4.28 K/ul (4.8-10.8)
[2023-10-05 07:36] LABS: Basophils # (auto) 0.02 K/uL (0.00-0.20); Basophils % (auto) 0.5 %; Eosinophils % (auto) 2.3 %; Immature Granulocytes # (auto) 0.02 K/uL (0.01-0.20); Immature Granulocytes % (auto) 0.5 %; Lymphocytes # (auto) 2.21 K/uL (1.20-3.40); Lymphocytes % (auto) 51.6 %; Monocytes # (auto) 0.51 K/uL (0.11-0.59); Monocytes % (auto) 11.9 %; Neutrophils # (auto) 1.42 K/uL (1.40-6.50); Neutrophils % (auto) 33.2 %
[2023-10-05] MEDS: IBUPROFEN 200 MG TAB PO STA (09:15)
[2023-10-05] MEDS: LORazepam 0.5 MG TAB PO STA (09:16)
--- NOTE | 2023-10-05 15:23 | Hospitalist Progress Note ---
Date of Service October 05, 2023 Assessment & Plan (1) Alcohol withdrawal: Plan: Abdominal pain possibly from alcoholic gastritis, possible PUD CT abd: no acute pancreatitis Lipase normal Protonix IV Sucralfate QID Famotidine PO Diet advanced Currently on soft diet Continue Protonix, sucralfate, famotidine Alcohol Intoxication Patient was admitted with alcohol intoxication Finish Librium and gabapentin taper No signs or symptoms of withdrawal Polysubstance abuse (+) UDS - methamphetamine, MDMA, Cannabis - monitor for withdrawal Mild alcoholic hepatitis good prognosis with negative computed Maddrey's DF Resolved Chronic pancytopenia secondary to chronic liver disease -Monitor for now Anxiety/mood disorder Patient requested psychiatry consultation. Psychiatry was consulted and behavioral psych liaison saw the patient; did not recommend any benzodiazepines has history of alcohol use. Patient is started on gabapentin 100 mg 3 times a day Polysubstance abuse Ongoing tobacco abuse - Patient would like to undergo inpatient rehab tire center manager on board Nicotine patch PRN DVT prophylaxis. SCDS Encouraged to ambulate frequently Full code Disposition; patient medically stable for transfer to alcohol rehab. Please note the above document was generated using voice recognition software. It may contain grammatical, syntax or spelling errors. Any formal questions or concerns about the content, text or information contained within the body of this dictation should be directly addressed to the provider for clarification Admission and Anticipated Discharge Date Admission Date: September 28, 2023 Subjective Seen with female RN at the bedside throughout whole encounter Patient agitated and aggressive; needed multiple redirection. No signs and symptoms of alcohol withdrawal Review of Systems Review of Systems: All systems reviewed & are unremarkable except as noted in Subjective Physical Exam Physical Exam: General- oriented x 3, not in distress, speaks in sentences with no effort or accessory muscle use Eyes- anicteric Neck- no JVD Lungs- clear breath sounds bilaterally, no rales/wheezes Heart- normal rate, regular rhythm; no murmurs Abdomen- normal bowel sounds, nondistended, soft, No tenderness Extremities- no pretibial edema, no calf tenderness No tremors Neuro- alert, oriented x 3; no gross focal neurologic deficits. no Tremors Skin- warm & dry Results & Data Results & Data Vital Signs (Past 12 Hours) Vital Signs Temp Pulse Resp BP BP Pulse Ox O2 Del Method 10/05/23 07:38 36.4 C L 78 17 96/54 L 100 Room Air 10/05/23 04:00 36.5 C 69 14 97/44 L 100 Nasal Cannula O2 Flow Rate 10/05/23 07:38 10/05/23 04:00 2 (1) Alcohol withdrawal Complication of substance-induced condition: uncomplicated Qualified Code(s): F10.230 - Alcohol dependence with withdrawal, uncomplicated
[2023-10-05 19:42] VITALS: RESP 18; O2SAT 100
[2023-10-05] MEDS: GABAPENTIN 100 MG CAP PO SCH (21:01)
[2023-10-05] MEDS: PANTOprazole 40 MG TAB PO SCH (21:39)
[2023-10-06 07:34] LABS: Basophils # (auto) 0.04 K/uL (0.00-0.20); Basophils % (auto) 0.7 %; Eosinophils # (auto) 0.09 K/uL (0.00-0.50); Eosinophils % (auto) 1.5 %; Hematocrit (blood only) 38.8 % (37.0-47.0); Hemoglobin 13.1 g/dl (12.0-16.0); Immature Granulocytes # (auto) 0.06 K/uL (0.01-0.20); Lymphocytes # (auto) 1.99 K/uL (1.20-3.40); Lymphocytes % (auto) 33.3 %; Mean Corpuscular Hemoglobin 33.9 pg (25.0-34.0); Mean Corpuscular Hgb Conc 33.8 g/dL (32.0-36.0); Mean Corpuscular Volume 100.5 fL (80.0-100.0); Mean Platelet Volume 9.6 fL (9.4-12.4); Monocytes # (auto) 0.77 K/uL (0.11-0.59); Monocytes % (auto) 12.9 %; Neutrophils # (auto) 3.02 K/uL (1.40-6.50); Neutrophils % (auto) 50.6 %; Platelet Count 150 K/uL (130-400); RDW Coefficient of Variation 14.4 % (11.5-14.5); RDW Standard Deviation 53.1 fL (36.4-46.3); Red Blood Count 3.86 M/uL (4.20-5.40); White Blood Count 5.97 K/ul (4.8-10.8)
[2023-10-06 08:04] VITALS: PULSE 84; TEMP 98.4
[2023-10-06 12:40] VITALS: BP 95/59
--- NOTE | 2023-10-06 14:20 | Discharge Summary ---
Date of Service October 06, 2023 Admission HPI Per Admitting Provider History obtained from patient and records. Medical history significant for recurrent pancreatitis, chronic pancytopenia (baseline hemoglobin of 10), anxiety/mood disorder, ongoing tobacco/alcohol abuse Last confinement June 2021 for alcohol withdrawal. Patient noted achy epigastric pain this a.m. associated with nausea and bilious emesis. Denies OTC NSAID intake. Denies black/bloody stools. No fever, no chills, no chest pain, no SOB. Medical History as above Surgical History : D&C Family History : Hypertension, alcoholism Personal/Social history : 5 cigarettes a day, alcohol abuse Admission Exam Per Admitting Provider GENERAL: Slightly uncomfortable, no respiratory distress SKIN: Pallor, warm HEENT: Pale palpebral conjunctivae, no ptosis, dry buccal mucosa NECK : Supple, no tenderness CHEST : CTA, no tenderness HEART : Tachycardic, no obvious murmurs ABDOMEN: no distention, epigastric tenderness EXTREMITIES : No LE swelling/tenderness, no other conspicuous deformities noted NEUROLOGIC : Coherent, no facial asymmetry, no other gross focality Principal Diagnosis Alcohol use disorder Alcohol withdrawal Discharge Exam General- oriented x 3, not in distress, speaks in sentences with no effort or accessory muscle use Eyes- anicteric Neck- no JVD Lungs- clear breath sounds bilaterally, no rales/wheezes Heart- normal rate, regular rhythm; no murmurs Abdomen- normal bowel sounds, nondistended, soft, No tenderness Extremities- no pretibial edema, no calf tenderness No tremors Neuro- alert, oriented x 3; no gross focal neurologic deficits. no Tremors Skin- warm & dry Discharge Data Allergies Allergy/AdvReac Type Severity Reaction Status Date / Time lamotrigine [From Lamictal] Allergy Mild Rash Verified 09/28/23 19:48 amairani Allergy Mild GUMS SWELL Verified 09/28/23 19:48 mushroom Allergy Mild GUMS SWELL Verified 09/28/23 19:48 ketorolac [From Toradol] AdvReac Mild Irritable Verified 09/28/23 19:48 Consultations 09/28/23 20:10 ED Decision to Admit Stat 09/29/23 16:34 Consult Gastroenterology Routine 10/02/23 08:17 Consult Behavioral Health Liaison Routine Ordered Studies 09/28/23 16:43 CT abd pelvis IV con only Stat Hospital Course (1) Alcohol withdrawal: Patient presented to the ED for evaluation of intractable nausea and vomiting along with abdominal pain for 4 days Patient reported history of alcohol use. She was found to have blood alcohol level of 441 mg/dl She was admitted to the medical floor for management of alcohol use disorder and alcohol withdrawal. She was started on alcohol withdrawal protocol with Ativan, Librium and gabapentin. Patient was also started on Protonix for possible gastritis. During the hospitalization, patient showed significant improvement with improvement in nausea, vomiting and abdominal pain. Her alcohol withdrawal symptoms improved and eventually resolved. Behavioral health was consulted for comanagement of anxiety. Outpatient follow- up was set up by psychiatry at the time of the discharge. She was prescribed gabapentin 100 mg 3 times a day for alcohol use disorder. She was recommended to follow-up with her primary care doctor and discuss further treatment for alcohol use disorder for which she agreed to. . Please note the above document was generated using voice recognition software. It may contain grammatical, syntax or spelling errors. Any formal questions or concerns about the content, text or information contained within the body of this dictation should be directly addressed to the provider for clarification Total Time Total Time Spent Total Time Spent (In Minutes): 45 Total Time Includes: Examination of the Patient, Discharge Planning, Medication Reconciliation, Communication With Other Providers and Other Discharge Plan Discharge Items Patient Disposition: Home - Self-Care Reason For Visit: ETOH WITHDRAWAL Discharge Diagnosis: Alcohol use disorder Alcohol withdrawal Activity: Resume your previous activity Non-emergency contact: Primary Care Provider Call non-emergency contact if: you have any medication questions and your symptoms worsen Follow-up/Referrals: [facility] [Outside] (IF [facility] DOES NOT CALL WITHIN 2-3 DAYS PLEASE CALL THEM [phone].) [facility] [Outside] (PLEASE CALL TO SCHEDULE APPOINTMENT [phone] ONCE REHAB IS COMPLETED.) William Mullins MD [Primary Care Provider] - (Date & Time 10/07/2023 9:00 AM Provider Mindi Camarillo MD Department General Internal Medicine [facility] ) Diet: Regular Addtl Attending Provider Instructions: You were admitted to the hospital due to alcohol withdrawal. You underwent treatment for detoxification during the hospitalization. Please follow-up with your primary care doctor as scheduled. Please discuss with your primary care doctor regarding starting naltrexone or other medication to help decrease craving of alcohol use. You are prescribed gabapentin 100 mg 3 times a day for the time being. You are also prescribed Protonix 40 mg twice a day for possible gastritis. After you complete 1 month course; you can start taking [id number] omeprazole 20 mg once a day. Pending Studies at Discharge: No Stand-Alone Forms: My [facility] Membersuite, Smoking Cessation Medications and DC Order Prescriptions: New thiamine HCl (vitamin B1) 100 mg Tablet 100 mg PO QAM Qty: 30 0RF pantoprazole 40 mg Tablet,Delayed Release (Dr/Ec) 40 mg PO BID Qty: 60 0RF folic acid 1 mg Tablet 1 mg PO QAM Qty: 30 0RF gabapentin 100 mg Capsule 100 mg PO TID Qty: 60 0RF Continued buspirone 10 mg tablet 10 mg PO BID PRN (Reason: Anxiety) multivitamin Tablet 1 tab PO DAILY Rx Instructions: when i remember pt says Discharge Orders: Discharge Order (Routine); Ordered 10/06/23 Ordered By: Emil Wliliamson Admission Data Admit Date/Time: 09/28/23 21:00 Attending Provider: Emil Williamson Admit Provider: Richar Daniels Primary Care Provider: William Mullins Other Providers: Richar Daniels; Roque Corral Other Interventions: Discharge Summary Assessment (RN) Last Done: 10/06/23 12:37
== END 2023-10-06 13:30 | disposition home or self-care (01) | DRG 897 ==
LOC: ED 16:10 → EDINP 21:00 → SUATTDRO 21:00 → 2W 09-29 20:13

== ENCOUNTER 2024-12-23 11:29 | Inpatient (IN) ==
--- NOTE | 2024-12-23 12:12 | Emergency Department Note ---
Impression & Plan Alcohol withdrawal, Metabolic acidosis, Alcohol abuse, Intractable nausea and vomiting, Increased anion gap metabolic acidosis ED Provider Note NAME: DINORA HICKS AGE: 29 SEX: F : 1995 ARRIVES VIA: Walk-In INFORMANT: Patient, ED PROVIDER(S): Boyd Campbell MD CHIEF COMPLAINT: Vomiting, alcohol use MEDICAL DECISION MAKING: Patient presents with the above. IV was established and blood work was obtained. This did take a little bit of time as the patient was a tough stick. Patient was ordered IV fluids and IV Zofran. Patient was also IV Protonix as the patient thought that she had some blood-tinged vomit. Chest and abdominal series ordered. Patient still having vomiting so the patient was ordered additional medications for vomiting and pain. The patient's blood work showed a elevated white count of 14 hemoglobin elevated likely consistent with dehydration. Additional IV fluids ordered. The patient was feeling increasingly nauseous so additional antiemetics were ordered including IV Zofran but still had additional symptoms so IV Reglan also ordered. Patient alcohol 56. Prolonged time getting the patient CMP LFTs are fairly unremarkable mild elevation in ALT at 82. The patient does have significant anion gap acidosis but is not hyperglycemic the patient's blood sugar was 49 was ordered D50. I did speak with the hospitalist as well as the veterans employment representative. The patient did have increasing tachycardia and the patient's WSS score was elevated after putting in additional orders patient had been ordered some Valium and 5 mg but given that she did not have significant improvement the patient was ordered phenobarb load IV patient received 230 mg IV now with 65 mg IV every 15 as needed based on a WSS score. UDS and tox screen ordered. I did speak with Dr. Flores who also evaluated the patient. He did have the patient receive IV Zosyn as he has concern that the patient may have aspirated. He did recommend CT of the chest abdomen pelvis. These were ordered and patient was seen by Dr. Fischer and the patient was admitted to the intensive care unit. Of note after receiving the initial dose of phenobarb and subsequent dose of phenobarb the patient did appear to be improved. Critical Care: I have personally spent 150 minutes of critical care time in direct management of this patient. This includes bedside care, interpretation of diagnostic studies, and testing, discussion with consultants, patient, and family members, and other require inpatient management activities. This 150 minutes is in excess of all separately billable procedures. Discussion w/ other healthcare providers: Dr. Fischer inpatient medicine service Dr. Flores veterans employment representative Prior /Outside records reviewed: none Differential diagnosis: Gastroenteritis, food borne illness, infection, appendicitis, diverticulitis, inflammatory bowel disease, obstruction among others were considered. Diagnostics, as interpreted by me: ECG: Sinus tachycardia, rate of 121, normal VT and QRS prolonged QTc, normal axis no ST elevations Motion artifact noted in V5. Cardiac monitoring: An order was placed for continuous cardiac monitoring. The monitor shows a rate of 135 with sinus rhythm. Patient was placed on pulse oximetry Medical decision rules: None Imaging studies: I informally interpreted the patient's chest x-ray does not show obvious pneumonia with formal report to follow. HPI: Patient presents due to concern for vomiting. The patient states that she does have chronic alcohol use and will drink anywhere from 5-10 shots daily and has been doing so for the last 30 days. The patient states that her last drink was at 5 PM last evening. The patient has vomited "too many times to count." Patient states that she has had some blood in the vomit. She also had dark stools. She denies any prior history of colonoscopy. She does have upper abdominal pain and states that she has had prior history of pancreatitis. Patient does smoke marijuana. PAST MEDICAL HISTORY: See Below PAST SURGICAL HISTORY: See Below SOCIAL HISTORY: See Below HOME MEDICATIONS: See Below ALLERGIES: See Below VITALS: See Below PHYSICAL EXAMINATION: GENERAL: Ill in appearance, occasional vomiting, emesis bag in hand. Wearing glasses. EYE EXAM: Normal conjunctiva. PERRL, no anisocoria and EOM's grossly intact w/o pain. OROPHARYNX: Dry mucus membranes, grossly normal dentition. NECK: Trachea midline, no stridor. LUNGS: Clear to auscultation. Normal chest wall mechanics. HEART: Tachycardic and regular, no MRG. ABDOMEN: Abdomen soft, epigastric pain without lower abdominal pain, no masses, no rebound or guarding. BACK: No CVA TTP. SKIN: No rashes and no bruising. UPPER EXTREMITIES: Upper extremities are grossly normal. LOWER EXTREMITIES: Grossly normal, no edema. NEURO EXAM: Awake and alert, follows commands, no obvious facial asymmetry, normal speech, moves all 4 extremities. Past Med/Surg History Problem List (Updated 12/24/24 @ 09:52 by Boyd Campbell MD) Alcohol withdrawal (Acute) Hypophosphatemia Metabolic acidosis (Acute) Transaminitis (Acute) High serum osmolar gap (Acute) Increased anion gap metabolic acidosis (Acute) Intractable nausea and vomiting (Acute) Nausea & vomiting Thrombocytopenia (Acute) Neutropenia (Acute) Acute alcoholic gastritis (Acute) Epigastric pain Bipolar disorder Acute alcoholic pancreatitis Anxiety Marijuana use (Acute) Unspecified mood [affective] disorder Alcohol use disorder, severe, dependence Hypomagnesemia Hypokalemia Intractable vomiting (Acute) Epigastric abdominal pain (Acute) High anion gap metabolic acidosis (Acute) Alcohol withdrawal (Acute) Suicidal ideation (Acute) Abdominal pain (Acute) Alcohol intoxication (Acute) Mood disorder (Acute) Cellulitis of face (Acute) Pancreatitis (Acute) DVT prophylaxis Seizure disorder Suicide and self-inflicted injury Alcohol abuse (Acute) Facial cellulitis History of orthopedic surgery Polysubstance abuse Mood disorder (Chronic) Medical History Alcohol abuse Closed fracture of right olecranon process Closed fracture of left distal radius Tobacco use disorder Mood disorder Recurrent pancreatitis Surgical History History of D&C x 3 Family History Other No significant family history Social History Smoking Status: Never smoker Tobacco Type: Cigarettes Second Hand Exposure: No; Do You Dip or Chew Tobacco: No; Tobacco Cessation Education Requested by Patient: No Hx Alcohol Use: Yes Alcohol type: hard liquor Hx Substance Use: Yes Prescribed Medications: Marijuana Last Used Substance: Hours (ago) Preferred Language: Palestinian Communication Ability: Effective Visual Impairment: No Limitations Weight Calculator Required: No Beliefs That Will Affect Care: None marital status: Single marital status details: Jason (43) [phone] Current Living Situation: Significant Other Current Living Situation Comment: lives with FOB, no pets. current occupational status: unemployed Other Information That Helps Us Care for You: No Feels Safe at Home: Yes Safety Concerns: Feels Safe At This Time Assistive Devices: None Allergies Allergies Allergy/AdvReac Type Severity Reaction Status Date / Time lamotrigine [From Lamictal] Allergy Mild Rash Verified 12/23/24 15:08 amairani Allergy Mild GUMS SWELL Verified 12/23/24 15:08 mushroom Allergy Mild GUMS SWELL Verified 12/23/24 15:08 ketorolac [From Toradol] AdvReac Mild Irritable Verified 12/23/24 15:08 Home Meds Home Medications Medication Instructions Recorded Confirmed albuterol sulfate 90 mcg/actuation 2 puff inhalation Q4 PRN cough or 11/07/24 12/23/24 aerosol inhaler wheeze ferrous sulfate 325 mg (65 mg 325 mg PO QAM 11/07/24 12/23/24 iron) tablet amoxicillin 875 mg-potassium 1 tab PO BID 12/23/24 12/23/24 clavulanate 125 mg tablet bupropion HCl 200 mg tablet,12 hr 200 mg PO QAM 12/23/24 12/23/24 sustained-release cetirizine 10 mg tablet 10 mg PO DAILY 12/23/24 12/23/24 norethindrone (contraceptive) 0.35 0.35 mg PO QAM 12/23/24 12/23/24 mg tablet Previous Rx's Medication Instructions Recorded folic acid 1 mg tablet 1 mg PO QAM #30 tabs 10/06/23 gabapentin 100 mg capsule 100 mg PO TID #60 caps 10/06/23 Results & Data (ED) Vital Signs Vital Signs - 24 hr 12/23/24 11:34 12/23/24 11:51 12/23/24 12:00 Temperature Temperature Source Pulse Rate 133 H 148 H Pulse Rate [Apical] 126 H Pulse Rate from SpO2 Sensor 147 H Pulse Rhythm Pulse Rhythm [Apical] Regular Respiratory Rate 26 H 24 30 H Respiratory Effort / Characteristics Non-Labored Spontaneous Non-Labored Spontaneous Respiratory Depth Normal Normal Respiratory Pattern Tachypnea Regular Blood Pressure 133/89 Blood Pressure [Left Arm] 141/10 H Blood Pressure Mean 103 Blood Pressure Mean [Left Arm] 53 Blood Pressure Position Sitting Pulse Oximetry 99 99 99 Oxygen Delivery Method Room Air Room Air Sepsis Recent Fever Within 48 Hours No Sepsis New/Unexplained Change in Mental Status N/A Sepsis Action Taken by Nursing No Action Required End-Tidal CO2 12/23/24 12:00 12/23/24 12:03 12/23/24 12:30 Temperature Temperature Source Pulse Rate 124 H 122 H 127 H Pulse Rate [Apical] Pulse Rate from SpO2 Sensor 126 H Pulse Rhythm Regular Pulse Rhythm [Apical] Respiratory Rate 30 H 24 Respiratory Effort / Characteristics Respiratory Depth Respiratory Pattern Blood Pressure Blood Pressure [Left Arm] Blood Pressure Mean Blood Pressure Mean [Left Arm] Blood Pressure Position Pulse Oximetry 99 98 Oxygen Delivery Method Room Air Sepsis Recent Fever Within 48 Hours Sepsis New/Unexplained Change in Mental Status Sepsis Action Taken by Nursing End-Tidal CO2 12/23/24 13:00 12/23/24 13:02 12/23/24 13:06 Temperature Temperature Source Pulse Rate 115 H 122 H Pulse Rate [Apical] Pulse Rate from SpO2 Sensor Pulse Rhythm Pulse Rhythm [Apical] Respiratory Rate 21 21 Respiratory Effort / Characteristics Respiratory Depth Respiratory Pattern Blood Pressure 162/118 H 162/118 H Blood Pressure [Left Arm] Blood Pressure Mean 132 145 Blood Pressure Mean [Left Arm] Blood Pressure Position Pulse Oximetry Oxygen Delivery Method Sepsis Recent Fever Within 48 Hours Sepsis New/Unexplained Change in Mental Status Sepsis Action Taken by Nursing End-Tidal CO2 12/23/24 13:30 12/23/24 14:00 12/23/24 14:30 Temperature 37.1 C Temperature Source Oral Pulse Rate 120 H 113 H Pulse Rate [Apical] 119 H Pulse Rate from SpO2 Sensor Pulse Rhythm Pulse Rhythm [Apical] Respiratory Rate 17 22 27 H Respiratory Effort / Characteristics Non-Labored Spontaneous Respiratory Depth Normal Respiratory Pattern Blood Pressure 119/63 Blood Pressure [Left Arm] 122/66 Blood Pressure Mean 92 Blood Pressure Mean [Left Arm] 84 Blood Pressure Position Pulse Oximetry 99 99 Oxygen Delivery Method Room Air Sepsis Recent Fever Within 48 Hours Sepsis New/Unexplained Change in Mental Status Sepsis Action Taken by Nursing End-Tidal CO2 12/23/24 15:00 12/23/24 15:01 12/23/24 15:18 Temperature Temperature Source Pulse Rate 142 H 134 H Pulse Rate [Apical] Pulse Rate from SpO2 Sensor 145 H Pulse Rhythm Pulse Rhythm [Apical] Respiratory Rate 26 H 18 Respiratory Effort / Characteristics Respiratory Depth Respiratory Pattern Blood Pressure 125/74 125/74 Blood Pressure [Left Arm] Blood Pressure Mean 85 Blood Pressure Mean [Left Arm] Blood Pressure Position Pulse Oximetry 99 Oxygen Delivery Method Sepsis Recent Fever Within 48 Hours Sepsis New/Unexplained Change in Mental Status Sepsis Action Taken by Nursing End-Tidal CO2 12/23/24 15:36 12/23/24 15:53 12/23/24 15:53 Temperature Temperature Source Pulse Rate 116 H Pulse Rate [Apical] Pulse Rate from SpO2 Sensor 116 H Pulse Rhythm Pulse Rhythm [Apical] Respiratory Rate 22 Respiratory Effort / Characteristics Respiratory Depth Respiratory Pattern Blood Pressure 130/101 H 130/101 H Blood Pressure [Left Arm] Blood Pressure Mean 117 117 Blood Pressure Mean [Left Arm] Blood Pressure Position Pulse Oximetry 100 Oxygen Delivery Method Sepsis Recent Fever Within 48 Hours Sepsis New/Unexplained Change in Mental Status Sepsis Action Taken by Nursing End-Tidal CO2 19 12/23/24 16:00 12/23/24 16:06 12/23/24 16:09 Temperature Temperature Source Pulse Rate 128 H Pulse Rate [Apical] 126 H Pulse Rate from SpO2 Sensor 129 H Pulse Rhythm Pulse Rhythm [Apical] Respiratory Rate 14 14 Respiratory Effort / Characteristics Non-Labored Spontaneous Respiratory Depth Normal Respiratory Pattern Blood Pressure 118/73 Blood Pressure [Left Arm] 108/62 Blood Pressure Mean 94 Blood Pressure Mean [Left Arm] 77 Blood Pressure Position Pulse Oximetry 100 99 Oxygen Delivery Method Room Air Sepsis Recent Fever Within 48 Hours Sepsis New/Unexplained Change in Mental Status Sepsis Action Taken by Nursing End-Tidal CO2 17 12/23/24 16:09 12/23/24 16:09 12/23/24 16:09 Temperature Temperature Source Pulse Rate 121 H Pulse Rate [Apical] Pulse Rate from SpO2 Sensor 123 H Pulse Rhythm Pulse Rhythm [Apical] Respiratory Rate 20 Respiratory Effort / Characteristics Respiratory Depth Respiratory Pattern Blood Pressure 118/73 118/73 Blood Pressure [Left Arm] Blood Pressure Mean 94 94 Blood Pressure Mean [Left Arm] Blood Pressure Position Pulse Oximetry 100 Oxygen Delivery Method Sepsis Recent Fever Within 48 Hours Sepsis New/Unexplained Change in Mental Status Sepsis Action Taken by Nursing End-Tidal CO2 19 Home Medications Current Medication List: was personally reviewed by me Laboratory Data Attestation: I reviewed the patient's lab results. 12/24/24 05:00 12/24/24 05:00 Lab Results 12/23/24 12/23/24 12/23/24 Range/Units 12:40 12:51 14:26 WBC 14.34 H (4.8-10.8) K/ul RBC 4.75 (4.20-5.40) M/uL Hgb 17.1 H (12.0-16.0) g/dl Hct 49.5 H (37.0-47.0) % MCV 104.2 H (80.0-100.0) fL MCH 36.0 H (25.0-34.0) pg MCHC 34.5 (32.0-36.0) g/dL RDW Std Deviation 54.7 H (36.4-46.3) fL RDW Coeff of Nayana 14.0 (11.5-14.5) % Plt Count 169 (130-400) K/uL MPV 9.1 L (9.4-12.4) fL Immature Gran % (Auto) 0.6 % Neut % (Auto) 79.5 % Lymph % (Auto) 12.8 % [place] % (Auto) 6.7 % Eos % (Auto) 0.0 % Baso % (Auto) 0.4 % Neut # (Auto) 11.40 H (1.40-6.50) K/uL Lymph # (Auto) 1.84 (1.20-3.40) K/uL [place] # (Auto) 0.96 H (0.11-0.59) K/uL Eos # (Auto) 0.00 (0.00-0.50) K/uL Baso # (Auto) 0.06 (0.00-0.20) K/uL Immature Gran # (Auto) 0.08 (0.01-0.20) K/uL Absolute Nucleated RBC 0.02 (0.00-0.12) K/uL Nucleated RBC % (auto) 0.1 % Sodium Cancelled 137 Potassium Cancelled TNP Chloride Cancelled 105 Carbon Dioxide Cancelled 7 L* Anion Gap Cancelled 25 H BUN Cancelled 9 Creatinine Cancelled 0.66 Est Cr Clr Drug Dosing Cancelled 106.1 eGFR Cancelled 120.20 BUN/Creatinine Ratio Cancelled 13.6 Glucose Cancelled 49 L* POC Glucose (70-99) mg/dl Osmolality 305 H (280-300) mOsm/kg Calcium Cancelled 8.1 L Phosphorus (2.5-4.9) mg/dl Magnesium Cancelled 1.7 Total Bilirubin Cancelled 0.8 AST Cancelled TNP ALT Cancelled 82 H Alkaline Phosphatase Cancelled 59 Lactate Dehydrogenase (86-244) U/L Total Protein Cancelled 7.4 Albumin Cancelled 4.5 Globulin Cancelled 2.9 Albumin/Globulin Ratio Cancelled 1.6 Lipase (11-82) U/L Procalcitonin 0.11 (0-0.5) ng/ml Urine Color Urine Appearance (Clear) Urine pH (4.5-7.5) Ur Specific [place] (1.000-1.030) Urine Protein (Negative) Urine Glucose (UA) (Negative) Urine Ketones (Negative) Urine Blood (Negative) Urine Nitrite (Negative) Urine Bilirubin (Negative) Urine Urobilinogen (Negative) Ur Leukocyte Esterase (Negative) Urine WBC (Auto) (0-5) /hpf Urine RBC (Auto) (0-2) /hpf U Hyaline Cast (Auto) (0-2) /lpf U Epithel Cells (Auto) (0-2) /hpf Urine Bacteria (Auto) (None Seen) Urine Osmolality (500-800) mOsm/kg Ur Random Creatinine mg/dl Ur Random Sodium mmol/L Ur Random Potassium mmol/L Ur Random Chloride mmol/L Urine Comment Urine Opiates Screen (Neg) Ur Methadone, Qual (Neg) Urine Fentanyl Screen (Neg) Urine Barbiturates (Neg) Ur Phencyclidine (PCP) (Neg) U Amphetamin/Meth Scrn (Neg) MDMA (Ecstasy) Screen (Neg) U Benzodiazepines Scrn (Neg) Ur Cocaine Metabolite (Neg) U Marijuana (THC) Screen (Neg) Ethyl Alcohol mg/dL 56.2 H (<10.0) mg/dl 12/23/24 12/23/24 12/23/24 Range/Units 15:22 15:50 15:52 WBC (4.8-10.8) K/ul RBC (4.20-5.40) M/uL Hgb (12.0-16.0) g/dl Hct (37.0-47.0) % MCV (80.0-100.0) fL MCH (25.0-34.0) pg MCHC (32.0-36.0) g/dL RDW Std Deviation (36.4-46.3) fL RDW Coeff of Nayana (11.5-14.5) % Plt Count (130-400) K/uL MPV (9.4-12.4) fL Immature Gran % (Auto) % Neut % (Auto) % Lymph % (Auto) % [place] % (Auto) % Eos % (Auto) % Baso % (Auto) % Neut # (Auto) (1.40-6.50) K/uL Lymph # (Auto) (1.20-3.40) K/uL [place] # (Auto) (0.11-0.59) K/uL Eos # (Auto) (0.00-0.50) K/uL Baso # (Auto) (0.00-0.20) K/uL Immature Gran # (Auto) (0.01-0.20) K/uL Absolute Nucleated RBC (0.00-0.12) K/uL Nucleated RBC % (auto) % Sodium Potassium 4.5 Chloride Carbon Dioxide Anion Gap BUN Creatinine Est Cr Clr Drug Dosing eGFR BUN/Creatinine Ratio Glucose POC Glucose 193 H (70-99) mg/dl Osmolality (280-300) mOsm/kg Calcium Phosphorus 2.5 (2.5-4.9) mg/dl Magnesium Total Bilirubin AST 78 H ALT Alkaline Phosphatase Lactate Dehydrogenase 338 H (86-244) U/L Total Protein Albumin Globulin Albumin/Globulin Ratio Lipase 7 L (11-82) U/L Procalcitonin (0-0.5) ng/ml Urine Color Yellow Urine Appearance Cloudy A (Clear) Urine pH 5.5 (4.5-7.5) Ur Specific [place] 1.019 (1.000-1.030) Urine Protein 1+ H (Negative) Urine Glucose (UA) Negative (Negative) Urine Ketones 4+ H (Negative) Urine Blood 3+ H (Negative) Urine Nitrite Negative (Negative) Urine Bilirubin Negative (Negative) Urine Urobilinogen Negative (Negative) Ur Leukocyte Esterase Negative (Negative) Urine WBC (Auto) 0-5 (0-5) /hpf Urine RBC (Auto) >20 H (0-2) /hpf U Hyaline Cast (Auto) 0-2 (0-2) /lpf U Epithel Cells (Auto) 11-20 H (0-2) /hpf Urine Bacteria (Auto) 1+ H (None Seen) Urine Osmolality 704 (500-800) mOsm/kg Ur Random Creatinine 38.6 mg/dl Ur Random Sodium 188 mmol/L Ur Random Potassium 49.7 mmol/L Ur Random Chloride 33 mmol/L Urine Comment Urine Opiates Screen Pos H (Neg) Ur Methadone, Qual Neg (Neg) Urine Fentanyl Screen Neg (Neg) Urine Barbiturates Neg (Neg) Ur Phencyclidine (PCP) Neg (Neg) U Amphetamin/Meth Scrn Neg (Neg) MDMA (Ecstasy) Screen Pos H (Neg) U Benzodiazepines Scrn Neg (Neg) Ur Cocaine Metabolite Neg (Neg) U Marijuana (THC) Screen Pos H (Neg) Ethyl Alcohol mg/dL (<10.0) mg/dl Administered Medications Albuterol (Albut/Ipratrop 3mg/0.5mg Neb 3 Ml Vial) 3 ml NEB Q6H PRN; Protocol PRN Reason: wheezing Stop: 01/22/25 17:33 Last Admin: 12/24/24 04:37 Dose: 3 ml Documented By: [id number] Enoxaparin Sodium (Enoxaparin Inj 40 Mg/0.4 Ml Syr) 40 mg SQ Q24H CHUN Stop: 01/22/25 17:59 Last Admin: 12/23/24 18:20 Dose: 40 mg Documented By: MTP Thiamine HCl 500 mg/ Sodium (Chloride) 55 mls @ 210 mls/hr IV Q8H CHUN Stop: 12/26/24 09:16 Last Infusion: 12/24/24 00:30 Dose: Infused Documented By: Admin: 12/24/24 00:14 Dose: 210 mls/hr Documented By: Infusion: 12/23/24 18:10 Dose: Infused Documented By: Admin: 12/23/24 17:54 Dose: 210 mls/hr Documented By: ALISSA Folic Acid 1 mg/ Syringe 10 mls @ 5 mls/min IV DAILY CHUN Stop: 01/22/25 16:44 Last Admin: 12/23/24 17:54 Dose: 5 mls/min Documented By: MTP Dextrose/Sodium Chloride (D5w And 1/2nss) 1,000 mls @ 75 mls/hr IV .[id number] CHUN Stop: 12/26/24 17:14 Last Admin: 12/24/24 07:41 Dose: 75 mls/hr Documented By: Infusion: 12/24/24 07:14 Dose: Infused Documented By: Admin: 12/23/24 17:54 Dose: 75 mls/hr Documented By: MTP Piperacillin Sod/Tazobactam Sod (Zosyn) 4.5 gm in 100 mls @ 25 mls/hr IV Q8H CHUN; Protocol Stop: 12/25/24 22:59 Last Admin: 12/24/24 07:41 Dose: 25 mls/hr Documented By: Infusion: 12/24/24 04:14 Dose: Infused Documented By: Admin: 12/24/24 00:14 Dose: 25 mls/hr Documented By: TP Pantoprazole Sodium (Protonix) 40 mg in 10 mls @ 5 mls/min IV BID CHUN Stop: 01/22/25 20:59 Last Admin: 12/24/24 08:40 Dose: 5 mls/min Documented By: Admin: 12/23/24 20:55 Dose: 5 mls/min Documented By: TP Potassium Phosphate 30 mmol/ (Sodium Chloride) 510 mls @ 88 mls/hr IV ONE ONE Stop: 12/24/24 13:02 Last Admin: 12/24/24 07:42 Dose: 88 mls/hr Documented By: SPENCERK Lorazepam (Lorazepam 2 Mg/1 Ml Vial) 2 mg IV UD PRN; Protocol PRN Reason: EtOH Withdrawal AWSS Score 8,9 Stop: 01/22/25 13:22 Last Admin: 12/24/24 04:52 Dose: 2 mg Documented By: Admin: 12/24/24 00:15 Dose: 2 mg Documented By: Admin: 12/23/24 20:09 Dose: 2 mg Documented By: TP Miscellaneous (Icu Protocol For Hyperglycemia) 1 each N/A Q6 [facility] Stop: 12/25/24 17:59 Last Admin: 12/24/24 06:04 Dose: Not Given Documented By: Admin: 12/24/24 00:21 Dose: Not Given Documented By: Admin: 12/23/24 17:56 Dose: Not Given Documented By: MTP Multivitamins (Multivitamin Tab) 1 tab PO QAM CHUN Stop: 01/23/25 08:59 Last Admin: 12/24/24 08:40 Dose: 1 tab Documented By: SOREN Discontinued Medications Dextrose (Dextrose 50% 50 Ml Syringe) 50 ml IV NOW STA Stop: 12/23/24 15:12 Last Admin: 12/23/24 15:17 Dose: 50 ml Documented By: CHANDLER Diazepam (Diazepam Inj 5 Mg/Ml 2 Ml Carp) 5 mg IV NOW ONE Stop: 12/23/24 13:55 Last Admin: 12/23/24 14:02 Dose: 5 mg Documented By: FELICITY Diphenhydramine HCl (Diphenhydramine 50 Mg/Ml Vial) 25 mg IV NOW STA Stop: 12/23/24 13:05 Last Admin: 12/23/24 13:20 Dose: 25 mg Documented By: FILIBERTO Sodium Chloride (Nss) 1,000 mls @ 999 mls/hr IV .Q1H1M CHUN Stop: 12/23/24 12:45 Last Infusion: 12/23/24 14:30 Dose: Infused Documented By: Admin: 12/23/24 12:55 Dose: 999 mls/hr Documented By: FILIBERTO Pantoprazole Sodium (Protonix) 40 mg in 10 mls @ 5 mls/min IV NOW ONE Stop: 12/23/24 12:30 Last Admin: 12/23/24 13:00 Dose: 5 mls/min Documented By: FELICITY Prochlorperazine (Compazine) 2 mls @ 1 mls/min IV ONE ONE Stop: 12/23/24 13:05 Last Admin: 12/23/24 13:20 Dose: 1 mls/min Documented By: FILIBERTO Sodium Chloride (Nss) 1,000 mls @ 999 mls/hr IV .Q1H1M ONE Stop: 12/23/24 14:04 Last Infusion: 12/23/24 14:30 Dose: Infused Documented By: Admin: 12/23/24 13:26 Dose: 999 mls/hr Documented By: FILIBERTO Sodium Chloride (Nss) 1,000 mls @ 999 mls/hr IV .Q1H1M ONE Stop: 12/23/24 16:08 Last Infusion: 12/23/24 16:55 Dose: Infused Documented By: Admin: 12/23/24 15:15 Dose: 999 mls/hr Documented By: Sonali Sodium Chloride (Nss) 1,000 mls @ 999 mls/hr IV .Q1H1M ONE Stop: 12/23/24 16:56 Last Infusion: 12/23/24 17:25 Dose: Infused Documented By: Admin: 12/23/24 16:24 Dose: 999 mls/hr Documented By: CARLO Potassium Chloride (K David / Wtr) 10 meq in 100 mls @ 100 mls/hr IV Q1H CHUN Stop: 12/23/24 19:14 Last Infusion: 12/23/24 20:52 Dose: Infused Documented By: Admin: 12/23/24 19:52 Dose: 100 mls/hr Documented By: Infusion: 12/23/24 19:52 Dose: Infused Documented By: Admin: 12/23/24 19:44 Dose: 100 mls/hr Documented By: Infusion: 12/23/24 18:59 Dose: Infused Documented By: Admin: 12/23/24 17:59 Dose: 100 mls/hr Documented By: MTP Magnesium Sulfate/Dextrose (Magnesium Sulfate / D5w) 1 gm in 100 mls @ 50 mls/hr IV Q2H CHUN Stop: 12/23/24 21:44 Last Infusion: 12/23/24 21:45 Dose: Infused Documented By: Admin: 12/23/24 19:45 Dose: 50 mls/hr Documented By: Infusion: 12/23/24 19:45 Dose: Infused Documented By: Admin: 12/23/24 17:59 Dose: 50 mls/hr Documented By: MTP Piperacillin Sod/Tazobactam Sod (Zosyn) 4.5 gm in 100 mls @ 200 mls/hr IV NOW STA; Protocol Stop: 12/23/24 18:19 Last Infusion: 12/23/24 18:48 Dose: Infused Documented By: Admin: 12/23/24 18:18 Dose: 200 mls/hr Documented By: MTP Calcium Gluconate () 1,000 mg in 60 mls @ 240 mls/hr IV Q15M CHUN Stop: 12/23/24 19:44 Last Infusion: 12/23/24 20:25 Dose: Infused Documented By: Admin: 12/23/24 20:10 Dose: 240 mls/hr Documented By: Infusion: 12/23/24 19:59 Dose: Infused Documented By: Admin: 12/23/24 19:44 Dose: 240 mls/hr Documented By: TP Lactated Ringer's (Lr) 500 mls @ 999 mls/hr IV .Q31M ONE Stop: 12/23/24 20:01 Last Infusion: 12/23/24 20:15 Dose: Infused Documented By: Admin: 12/23/24 19:44 Dose: 999 mls/hr Documented By: TP Ioversol (Optiray 320 100ml) 90 ml IV ONCE ONE Stop: 12/23/24 19:57 Last Admin: 12/23/24 19:57 Dose: 90 ml Documented By: BENNIE Metoclopramide HCl (Metoclopramide Hcl Inj 5 Mg/Ml 2 Ml Vial) 10 mg IV NOW STA Stop: 12/23/24 16:02 Last Admin: 12/23/24 16:06 Dose: 10 mg Documented By: CARLO Morphine Sulfate (Morphine Sulfate 4 Mg/Ml 1 Ml Carp\\Vial) 4 mg IV NOW STA Stop: 12/23/24 13:05 Last Admin: 12/23/24 13:19 Dose: 4 mg Documented By: FILIBERTO Ondansetron HCl (Ondansetron Inj 2 Mg/Ml 2 Ml Vial) 4 mg IV NOW STA Stop: 12/23/24 11:42 Last Admin: 12/23/24 12:53 Dose: 4 mg Documented By: FILIBERTO Ondansetron HCl (Ondansetron Inj 2 Mg/Ml 2 Ml Vial) 4 mg IV NOW STA Stop: 12/23/24 15:09 Last Admin: 12/23/24 15:18 Dose: 4 mg Documented By: CHANDLER Phenobarbital Sodium (Phenobarbital Sodium 65 Mg/Ml Vial) 130 mg IV NOW STA Stop: 12/23/24 15:08 Last Admin: 12/23/24 15:18 Dose: 130 mg Documented By: CHANDLER Phenobarbital Sodium (Phenobarbital Sodium 65 Mg/Ml Vial) 65 mg IV Q15M PRN PRN Reason: AWSS greater than 8 Stop: 12/23/24 17:07 Last Admin: 12/23/24 16:25 Dose: 65 mg Documented By: CARLO Imaging Data Radiologist's Impression: Chest/Abdomen X-ray 12/23/24 12:29 Abdominal radiograph, 4 view, chest radiograph, 1 view History: Abdominal pain Comparison: None Findings: Small right upper lung calcified granuloma. No consolidation, pleural effusion or pneumothorax. The cardiomediastinal silhouette is within normal limits. The bowel gas pattern appears nonobstructive. No pneumatosis or portal venous gas. No abnormal calcifications project over the abdomen. No acute abnormality of the bony structures. Impression: Nonobstructive bowel gas pattern. No acute finding in the chest. Electronically signed by Samir Riggins 12-23-2024 3:17 PM Abdomen/Pelvis CT 12/23/24 15:55 CT of the abdomen pelvisWith contrast Technique: Postcontrast axial images of the abdomen pelvis. Coronal and sagittal reformatted images made available for review No comparison Findings: Lung bases are clear Hepatic steatosis. Borderline hepatomegaly. Calcified granuloma within the spleen. Hyperdensity seen within the gallbladder likely representing biliary sludge versus tiny gallstones. No CT evidence however to suggest acute cholecystitis. Solid abdominal organs are otherwise unremarkable in appearance. Normal-appearing appendix. No free air or intestinal obstruction. Urinary bladder is mildly distended. Bone windows demonstrate no focal abnormality Impression Mild distention of the urinary bladder Borderline hepatomegaly Hepatic steatosis Probable cholelithiasis without CT evidence of acute cholecystitis Distention of the urinary bladder. Electronically signed by Toyn Williamson 12-23-2024 9:[address] 12/23/24 16:02 EXAMINATION: Chest CT with CLINICAL HISTORY: Hematemesis PRIORS: None TECHNIQUE: Contiguous axial images were obtained through the chest with the use of intravenous contrast. Sagittal and coronal reformations are supplied. FINDINGS: The chest is well-expanded. Calcified granuloma present in the right lung. No dominant soft tissue mass, pleural effusion or airspace consolidation. No adenopathy in the chest. Trachea and mainstem bronchi are patent. Heart size is normal. No pleural or pericardial effusion. Thyroid is normal size. Limited visualization of the upper abdomen shows fatty infiltration of the liver. In bone windows, no acute osseous abnormality. IMPRESSION: No CT evidence of an acute cardio pulmonary process. Electronically signed by Marcia Sanches 12-23-2024 8:41 PM Discharge Plan Visit Data Chief Complaint: Vomiting Stated Complaint: VOMITING, NAUSEA ED Provider: Boyd Campbell Discharge Problem: Alcohol withdrawal, Metabolic acidosis, Alcohol abuse, Intractable nausea and vomiting, Increased anion gap metabolic acidosis Patient Disposition: Admitted As Inpatient Condition: Serious Discharge Instructions Interventions: ED Discharge Assessment Last Done: 12/23/24 17:14 Discharge Problem: Alcohol withdrawal Qualifiers: Complication of substance-induced condition: with unspecified complication Q ualified Code(s): F10.939 - Alcohol use, unspecified with withdrawal, unspecified
[2024-12-23] MEDS: ONDANSETRON INJ 2 MG/ML 2 ML VIAL IV STA ×2 (12:53→15:18)
[2024-12-23] MEDS: SODIUM CHLORIDE 0.9% 1,000 ML IV SCH (12:55)
[2024-12-23] MEDS: PANTOprazole 40 MG/10 ML SYR IV ONE (13:00)
[2024-12-23 13:06] LABS: Hematocrit (blood only) 49.5 % (37.0-47.0); Hemoglobin 17.1 g/dl (12.0-16.0); Immature Granulocytes # (auto) 0.08 K/uL (0.01-0.20); Immature Granulocytes % (auto) 0.6 %; Mean Corpuscular Hemoglobin 36.0 pg (25.0-34.0); Mean Corpuscular Volume 104.2 fL (80.0-100.0); Platelet Count 169 K/uL (130-400); RDW Standard Deviation 54.7 fL (36.4-46.3); Red Blood Count 4.75 M/uL (4.20-5.40); White Blood Count 14.34 K/ul (4.8-10.8)
[2024-12-23] MEDS: MoRPHine SULFATE 4 MG/ML 1 ML CARP\\VIAL IV STA (13:19)
[2024-12-23] MEDS: PROCHLORPERAZINE 2 ML IV ONE (13:20)
[2024-12-23] MEDS: diphenhydrAMINE 50 MG/ML VIAL IV STA (13:20)
[2024-12-23] MEDS ORDERED: Ativan IV Alcohol Withdrawal--Active Protocol IV PRN (13:23)
[2024-12-23] MEDS: SODIUM CHLORIDE 0.9% 1,000 ML IV ONE ×3 (13:26→16:24)
[2024-12-23] MEDS: DEXTROSE 50% 50 ML SYRINGE IV STA (15:17)
--- NOTE | 2024-12-23 15:18 | XRay Report ---
Abdominal radiograph, 4 view, chest radiograph, 1 view History: Abdominal pain Comparison: None Findings: Small right upper lung calcified granuloma. No consolidation, pleural effusion or pneumothorax. The cardiomediastinal silhouette is within normal limits. The bowel gas pattern appears nonobstructive. No pneumatosis or portal venous gas. No abnormal calcifications project over the abdomen. No acute abnormality of the bony structures. Impression: Nonobstructive bowel gas pattern. No acute finding in the chest. Electronically signed by Samir Riggins 12-23-2024 3:17 PM
[2024-12-23 15:21] LABS: Alanine Aminotransferase 82 U/L (7-52); Albumin Globulin Ratio 1.6 (0.9-2); Alkaline Phosphatase 59 U/L (34-104); Anion Gap 25 (3-11); Bilirubin,Total 0.8 mg/dl (0.2-1.0); Blood Urea Nitrogen 9 mg/dl (6-23); Calcium 8.1 mg/dl (8.6-10.3); Carbon Dioxide 7 mmol/L (21-32); Chloride 105 mmol/L (98-107); Creatinine Clr Calc Pharmacy 106.1 ml/min; Globulin 2.9 gm/dl (2.5-4.0); Glucose 49 mg/dl (70-99(Fasting)); Magnesium 1.7 mg/dl (1.7-2.4); Sodium 137 mmol/L (136-145); Total Protein 7.4 gm/dl (6.0-8.3)
[2024-12-23] MEDS: METOCLOPRAMIDE HCL INJ 5 MG/ML 2 ML VIAL IV STA (16:06)
--- NOTE | 2024-12-23 16:12 | History & Physical Report ---
Date of Service December 23, 2024 Assessment & Plan (1) High serum osmolar gap: (2) Nausea & vomiting: Plan Ms Davidson is a 29 year old woman with past medical history remarkable for alcohol use disorder, recurrent pancreatitis, chronic thrombocytopenia, AFLD, anxiety/mood disorder, ongoing alcohol abuse, past tobacco abuse who is admitted to ICU for management of severe anion gap acidosis and alcohol withdrawal. Patient with high risk for severe withdrawal, as well as multiple metabolic abnormalities requiring critical care monitoring #High Anion Gap Metabolic Acidosis #Nausea and Vomiting #Hematemesis #Severe dehydration #Hx of recurrent pancreatitis Gap 25, HCO3 7, suspect etoh and starvation ketosis contributing reviewed ICU documentation lipase 7 Trend hgb D51/2NS for now Continue PPI BID IV replace electrolytes prn concern for possible aspiration, zosyn empirically CT ab/p ordered to assess for pancreatitis CT chest to assess for abnormality iso hematemesis #Hypoglycemia perhaps 2/2 component of starvation ketosis d51/2NS for now while npo hypoglycemia protocol per ICU #Alcohol Use Disorder #High Risk Withdrawal continue AWSS, ativan prn for now s/p 130 IV phenobarbital and 65mg IV follow up thereafter IV thiamine 500mg q8 x 3 days iso possible starvation ketosis IV folate until able to take po monitor in ICU #Sinus Tachycardia iso severe acidosis, dehydration, etoh withdrawal monitor on tele fluid resuscitation and ciwa as above #Transaminitis #Hepatic steatosis and hepatomegaly - LFT elevation resolved, INR 1.0 telemedicine visit with Hepatology on 11/21, patient did not report to feel concerned about her alcohol use at this time despite counseling over having "alcoholic pancreatitis/hepatitis, fatty liver that all of this can progress over time with continued use of ethanol to potentially cirrhosis" Trend CMP in am CT ABP pending #Hemoconcentrated CBC #Hx of Chronic Thrombocytopenia secondary to Liver disease typically in 90-110s, today elevated, anticipate downtrend hgb 17, likely concentrated iso vomiting, anticipate downtrend, baseline 12 continue to monitor for bloody out put as well trend CBC #Depression continue wellbutrin and gabapentin dvt ppx scd Full code admit ICU Admission and Anticipated Discharge Date Admission Date: Time spent evaluating patient, direct bedside care, chart review, placing orders, interpretation of diagnostic studies, discussion with consultants, patient, and family members, as well as other required patient management activities is 80 minutes. History of Present Illness Chief Complaint: nausea vomiting Primary Care Provider: William Mullins MD Ms Davidson is a 29 year old woman with past medical history remarkable for alcohol use disorder, recurrent pancreatitis, chronic thrombocytopenia, AFLD, anxiety/mood disorder, ongoing alcohol abuse, past tobacco abuse who presented to [facility] ED due to abdominal pain, nausea, and vomiting. Patient states she has been drinking about 5 shots every day for weeks. She noted some abdominal pain yesterday, prompting her to stop drinking as she has been vomiting since yesterday afternoon. She states that after multiple times of vomiting, she noted that there was "black-like goo" in her vomit that looked like blood. She denies blood in stool at this time. She reports throat pain when swallowing. She denies chest pain, SOB, or cough. She reports epigastric pain not dissimilar to prior episodes of pancreatitis. EXam limited secondary to patient discomfort She denies current tobacco use, reports daily etoh use, and endorses daily marijuana use. She denies any other ingestion of other liquids/substances out side of bottled drinking liquor/alcohol. In the ED, vitals were notable for BP of 120-160s HR of 110s-130s and O2 sat of high 90s on room air. Afebrile labs with leukocytosis to 14.34, hgb 17.1 (baseline ~12), anion gap acidosis of 25 with hco3 of 7, hypoglycemia to 49, ast 78, alt 82, ldh 338, lipase 7 procal 0.11, ketones in urine Imaging revealed no pneumatosis of acute chest findings; pending CT imaging EKG [id number] sinus tachycardia ED interventions: valium, phenobarbital loading dose 130 IV Consultants: ICU Patient to be admitted to ICU for further evaluation and management of acute alcohol withdrawal Allergies Allergy/AdvReac Type Severity Reaction Status Date / Time lamotrigine [From Lamictal] Allergy Mild Rash Verified 12/23/24 15:08 amairani Allergy Mild GUMS SWELL Verified 12/23/24 15:08 mushroom Allergy Mild GUMS SWELL Verified 12/23/24 15:08 ketorolac [From Toradol] AdvReac Mild Irritable Verified 12/23/24 15:08 Home Medications Medication Instructions Recorded Confirmed Type folic acid 1 mg tablet 1 mg PO QAM #30 tabs 10/06/23 12/23/24 Rx gabapentin 100 mg capsule 100 mg PO TID #60 caps 10/06/23 12/23/24 Rx albuterol sulfate 90 mcg/actuation 2 puff inhalation Q4 PRN cough or 11/07/24 12/23/24 History aerosol inhaler wheeze ferrous sulfate 325 mg (65 mg 325 mg PO QAM 11/07/24 12/23/24 History iron) tablet amoxicillin 875 mg-potassium 1 tab PO BID 12/23/24 12/23/24 History clavulanate 125 mg tablet bupropion HCl 200 mg tablet,12 hr 200 mg PO QAM 12/23/24 12/23/24 History sustained-release cetirizine 10 mg tablet 10 mg PO DAILY 12/23/24 12/23/24 History norethindrone (contraceptive) 0.35 0.35 mg PO QAM 12/23/24 12/23/24 History mg tablet Past Med/Surg History Problem List (Updated 11/09/24 @ 16:44 by Rex Garsia MD) Hypophosphatemia Metabolic acidosis Transaminitis (Acute) High serum osmolar gap (Acute) Increased anion gap metabolic acidosis (Acute) Intractable nausea and vomiting (Acute) Nausea & vomiting Thrombocytopenia (Acute) Neutropenia (Acute) Acute alcoholic gastritis (Acute) Epigastric pain Bipolar disorder Acute alcoholic pancreatitis Anxiety Marijuana use (Acute) Unspecified mood [affective] disorder Alcohol use disorder, severe, dependence Hypomagnesemia Hypokalemia Intractable vomiting (Acute) Epigastric abdominal pain (Acute) High anion gap metabolic acidosis (Acute) Alcohol withdrawal (Acute) Suicidal ideation (Acute) Abdominal pain (Acute) Alcohol intoxication (Acute) Mood disorder (Acute) Cellulitis of face (Acute) Pancreatitis (Acute) DVT prophylaxis Seizure disorder Suicide and self-inflicted injury Alcohol abuse (Acute) Facial cellulitis History of orthopedic surgery Polysubstance abuse Mood disorder (Chronic) Medical History Alcohol abuse Closed fracture of right olecranon process Closed fracture of left distal radius Tobacco use disorder Mood disorder Recurrent pancreatitis Surgical History History of D&C x 3 Family History Other No significant family history Social History Smoking Status: Never smoker Tobacco Type: Cigarettes Second Hand Exposure: No; Do You Dip or Chew Tobacco: No; Hx Alcohol Use: Yes Alcohol type: other Hx Substance Use: No Preferred Language: Ecuadorean Communication Ability: Effective Visual Impairment: No Limitations 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 current occupational status: unemployed Feels Safe at Home: Yes Assistive Devices: None Review of Systems Review of Systems: Constitutional: (-) fever/chills, (-) recent loss of weight, (-) appetite changes, (-) night sweats. Head: (-) headache, (-) dizziness. Eye: (-) blurring of vision, (-) double vision, (-) redness. Ear: (-) hearing loss, (-) discharge, (-) vertigo Nose: (-) discharge, (-) bleeding, (-) congestion, (-) post nasal drip. Throat: (+) sore throat, (+) hoarseness of voice, (+) odynophagia. Cardiovascular: (-) chest pain, (-) palpitations, (-) syncope, (-) orthopnea, (- ) PND, (-) leg swelling. Respiratory: (-) shortness of breath, (-) cough, (-) wheezing, (-) hemoptysis. Neuro: (-) weakness in extremities, (-) numbness, (-) tingling, (-) tremor. Gastrointestinal: (+) belly pain, (-) belly distension, (+) nausea, (+) vomiting, (-) diarrhea, (-) constipation, (-) na, (-) hematemesis, (-) hematochezia, (-) bowel incontinence Genitourinary: (-) hematuria, (-) dysuria, (-) polyuria, (-) hesitancy, (-) frequency, (-) urinary incontinence. Musculoskeletal: (-) myalgia, (-) arthralgia. Skin: (-) rashes. Endocrine: (-) heat/cold intolerance. Psychiatry: (-) depression, (-) hallucination. Physical Exam Physical Exam: GENERAL APPEARANCE: AxOx4,very uncomfortable appearing woman HEENT: NC, AT. MMM. EOMI, clear conjunctiva, oropharynx clear. NECK: Supple without lymphadenopathy. No stiffness or restricted ROM. HEART: tachycardic LUNGS: CTAB, moving air well. No crackles or wheezes are heard. ABDOMEN: Soft, tender in epigastrum BS+ EXTREMITIES: Without cyanosis, clubbing or edema. NEUROLOGICAL: Grossly nonfocal. Alert and oriented, moving all 4 extremities. CN not formally tested but appear grossly intact Skin: Warm and dry without any rash. Results & Data Results & Data Vital Signs (Past 12 Hours) Vital Signs Temp Pulse Pulse Resp BP BP Pulse Ox 12/23/24 16:00 126 H 14 108/62 100 12/23/24 15:18 134 H 18 125/74 12/23/24 14:30 113 H 27 H 119/63 99 12/23/24 14:00 37.1 C 119 H 22 122/66 99 12/23/24 13:30 120 H 17 12/23/24 13:06 122 H 21 12/23/24 13:02 162/118 H 12/23/24 13:00 115 H 21 162/118 H 12/23/24 12:30 127 H 24 98 12/23/24 12:03 122 H 12/23/24 12:00 124 H 30 H 99 12/23/24 12:00 126 H 30 H 141/10 H 99 12/23/24 11:51 148 H 24 99 12/23/24 11:34 133 H 26 H 133/89 99 O2 Del Method 12/23/24 16:00 Room Air 12/23/24 15:18 12/23/24 14:30 12/23/24 14:00 Room Air 12/23/24 13:30 12/23/24 13:06 12/23/24 13:02 12/23/24 13:00 12/23/24 12:30 12/23/24 12:03 12/23/24 12:00 Room Air 12/23/24 12:00 12/23/24 11:51 Room Air 12/23/24 11:34 Room Air Laboratory Results Short CBC 12/23/24 Range/Units 12:40 WBC 14.34 H (4.8-10.8) K/ul Hgb 17.1 H (12.0-16.0) g/dl Hct 49.5 H (37.0-47.0) % Plt Count 169 (130-400) K/uL BMP 12/23/24 12/23/24 12/23/24 12:40 14:26 15:52 Sodium Cancelled 137 Potassium Cancelled TNP 4.5 Chloride Cancelled 105 Carbon Dioxide Cancelled 7 L* BUN Cancelled 9 Creatinine Cancelled 0.66 Glucose Cancelled 49 L* Calcium Cancelled 8.1 L Liver Function 12/23/24 12/23/24 12/23/24 Range/Units 12:40 14:26 15:52 Total Bilirubin Cancelled 0.8 AST Cancelled TNP 78 H ALT Cancelled 82 H Alkaline Phosphatase Cancelled 59 Albumin Cancelled 4.5 Urine 12/23/24 Range/Units 15:22 Urine Color Yellow Urine Appearance Cloudy A (Clear) Urine pH 5.5 (4.5-7.5) Ur Specific [place] 1.019 (1.000-1.030) Urine Protein 1+ H (Negative) Urine Glucose (UA) Negative (Negative) Medications Administered Home Medications Medication Instructions Recorded Confirmed Last Taken folic acid 1 mg tablet 1 mg PO QAM #30 tabs 10/06/23 12/23/24 11/04/24 gabapentin 100 mg capsule 100 mg PO TID #60 caps 10/06/23 12/23/24 11/04/24 albuterol sulfate 90 mcg/actuation 2 puff inhalation Q4 PRN cough or 11/07/24 12/23/24 Unknown aerosol inhaler wheeze ferrous sulfate 325 mg (65 mg 325 mg PO QAM 11/07/24 12/23/24 11/04/24 iron) tablet amoxicillin 875 mg-potassium 1 tab PO BID 12/23/24 12/23/24 Unknown clavulanate 125 mg tablet bupropion HCl 200 mg tablet,12 hr 200 mg PO QAM 12/23/24 12/23/24 Unknown sustained-release cetirizine 10 mg tablet 10 mg PO DAILY 12/23/24 12/23/24 Unknown norethindrone (contraceptive) 0.35 0.35 mg PO QAM 12/23/24 12/23/24 Unknown mg tablet Code Status & VTE Plan VTE Prophylaxis Plan VTE Prophylaxis will be ordered: Yes
[2024-12-23 16:13] LABS: Appearance Urine Cloudy (Clear); Bacteria Urine Automated 1+ (None Seen); Cast Urine Automated 0-2 /lpf (0-2); Glucose Urine UA Negative (Negative); RBC Urine Automated >20 /hpf (0-2); WBC Urine Automated 0-5 /hpf (0-5)
--- NOTE | 2024-12-23 16:15 | Critical Care Consultation ---
Date of Consultation December 23, 2024 Assessment & Plan (1) Increased anion gap metabolic acidosis: (2) Nausea & vomiting: (3) Epigastric abdominal pain: (4) Mood disorder: (5) Polysubstance abuse: (6) Transaminitis: Plan Reason Critically Ill: 29-year-old female coming to the hospital with complaints of nausea and vomiting since last night with hematemesis. Was found to be severely acidotic in the ED. Past medical history: Alcohol abuse, recurrent pancreatitis, anxiety/mood disorder, daily marijuana smoking Neuro - [facility]: Negative --Mood disorder On bupropion as well as gabapentin at home --History of alcohol abuse Last drink 12/23/2019 5 in the afternoon Alcohol level 56 Continue with high-dose thiamine, folic acid Cardiac - -- Tachycardia Multifactorial Likely from hypovolemia as well as questionable withdrawal Respiratory - -- Saturating well on room air Does have hyperinflated lungs going towards COPD/asthma-like picture GI - -- Hematemesis Likely from retching Monitor H&H Antiemetics [id number] -- Transaminitis Mild elevation of AST and ALT Continue to trend RENAL/LYTES - -- HAGMA Delta-delta: Less than 1, gap plus non-anion gap Gap is likely from lactic acidosis, patient also been vomiting, there is a component of metabolic alkalosis Serum osmolality 305, calculated osmolality 295, osmolar gap only 10. Urine osm, urine lytes Follow up ABG Monitor ENDO - -- Hypoglycemia on presentation There is a possibility patient has starvation ketoacidosis Follow-up UA for ketones HEME - -- Macrocytic anemia Monitor H&H ID - -- No clear source of infection on the chest x-ray Follow-up CT abdomen pelvis --Prophylaxis VTE: IPC GI: Pantoprazole Lines: Peripheral Diet: N.p.o. Plan: Give another 1.5 L of IV fluid bolus Pantoprazole 40 mg twice daily Follow-up lipase Serum osmolality 305, calculated osmolality 295, osmolar gap only 10. Patient's baseline hemoglobin is 12 she comes in with 17 seems that she is severely dehydrated although BUN/creatinine is at baseline Patient likely has starvation ketosis, will give high-dose thiamine and once the first dose of thiamine is then start D5 half NS at [address] chest as the patient came in with hematemesis to make sure patient does not have Boerhaave's CT abdominal pelvis to rule out pancreatitis. Follow-up lipase Patient did get phenobarbital, I I am not inclined that the patient is withdrawing from alcohol. Today she seems to be more dehydrated. Will continue to monitor for signs of withdrawal. She is already on CIWA protocol Case was discussed with ER I have personally spent 62 minutes of critical care time in the direct management of this patient. This is a life/limb threatening event. This includes time spent evaluating patient, direct bedside care, chart review, placing orders, interpretation of diagnostic studies, discussion with consultants, patient, and family members, as well as other required patient management activities. This time is exclusive of all separately billable procedures, and teaching time and separate from and in addition to any other critical care service time. History of Present Illness History of Present Illness 29-year-old female coming to the hospital with complaints of nausea and vomiting since last night with hematemesis. Was found to be severely acidotic in the ED. Past medical history: Alcohol abuse, recurrent pancreatitis, anxiety/mood disorder, daily marijuana smoking Patient's boyfriend was in the room at the time of examination Systolic blood pressure was in the 130s, heart rate in the 120s Patient was in discomfort because of abdominal pain as well as nausea. She had just gotten Zofran 20 minutes ago but she was still retching and throwing up. I ordered 10 mg of metoclopramide. She is finishing second liter of bolus fluid. Would recommend another 1 and half liters of IV bolus. She has been complaining of chills but no fever She has been drinking bourbon. Denied any use of rubbing alcohol or any over the street alcohol. Last drink was yesterday in the afternoon. She does confess to doing weed on a daily basis last use being today in the morning. Was dizzy and lightheaded prior to coming to the hospital. The dizziness with lightheadedness has resolved Denies any cough No shortness of breath Social history: Smokes weed on a regular basis, heavy alcohol use on a daily basis. Used to work in [employer], currently unemployed Allergies Allergy/AdvReac Type Severity Reaction Status Date / Time lamotrigine [From Lamictal] Allergy Mild Rash Verified 12/23/24 15:08 amairani Allergy Mild GUMS SWELL Verified 12/23/24 15:08 mushroom Allergy Mild GUMS SWELL Verified 12/23/24 15:08 ketorolac [From Toradol] AdvReac Mild Irritable Verified 12/23/24 15:08 Home Medications Medication Instructions Recorded Confirmed Type folic acid 1 mg tablet 1 mg PO QAM #30 tabs 10/06/23 12/23/24 Rx gabapentin 100 mg capsule 100 mg PO TID #60 caps 10/06/23 12/23/24 Rx albuterol sulfate 90 mcg/actuation 2 puff inhalation Q4 PRN cough or 11/07/24 12/23/24 History aerosol inhaler wheeze ferrous sulfate 325 mg (65 mg 325 mg PO QAM 11/07/24 12/23/24 History iron) tablet amoxicillin 875 mg-potassium 1 tab PO BID 12/23/24 12/23/24 History clavulanate 125 mg tablet bupropion HCl 200 mg tablet,12 hr 200 mg PO QAM 12/23/24 12/23/24 History sustained-release cetirizine 10 mg tablet 10 mg PO DAILY 12/23/24 12/23/24 History norethindrone (contraceptive) 0.35 0.35 mg PO QAM 12/23/24 12/23/24 History mg tablet Patient History Medical History Alcohol abuse Closed fracture of right olecranon process Closed fracture of left distal radius Tobacco use disorder Mood disorder Recurrent pancreatitis Surgical History History of D&C x 3 Family History Other No significant family history Social History Smoking Status: Never smoker Tobacco Type: Cigarettes Second Hand Exposure: No; Do You Dip or Chew Tobacco: No; Hx Alcohol Use: Yes Alcohol type: other Hx Substance Use: No Preferred Language: Luxembourgish Communication Ability: Effective Visual Impairment: No Limitations 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 current occupational status: unemployed Feels Safe at Home: Yes Assistive Devices: None Review of Systems 2 Review of Systems: All systems reviewed & are unremarkable except as noted in HPI & below Physical Exam 2 Physical Exam: Constitutional: In acute distress HEENT: EOMI, PERRLA Respiratory system: Good air entry bilaterally, no wheeze, no rhonchi, no crackles CVS: S1-S2 positive, no murmurs or gallops, tachycardia Abdomen: Soft, diffuse abdominal tenderness, most pronounced in epigastrium, no rebound, positive bowel sound x 3, obese Extremities: +2 pulses bilaterally radialis/ dorsalis pedis, no cyanosis, no edema Neuro: Awake alert oriented x3 Psych: Restless mood and affect G/U: No Roman Skin: no rashes, warm and dry Lymphatic: no cervical or axillary lymphadenopathy Results & Data Results & Data Vital Signs (Past 12 Hours) Vital Signs Temp Pulse Pulse Resp BP BP Pulse Ox 12/23/24 15:18 134 H 18 125/74 12/23/24 14:30 113 H 27 H 119/63 99 12/23/24 14:00 37.1 C 119 H 22 122/66 99 12/23/24 13:30 120 H 17 12/23/24 13:06 122 H 21 12/23/24 13:02 162/118 H 12/23/24 13:00 115 H 21 162/118 H 12/23/24 12:30 127 H 24 98 12/23/24 12:03 122 H 12/23/24 12:00 124 H 30 H 99 12/23/24 12:00 126 H 30 H 141/10 H 99 12/23/24 11:51 148 H 24 99 12/23/24 11:34 133 H 26 H 133/89 99 O2 Del Method 12/23/24 15:18 12/23/24 14:30 12/23/24 14:00 Room Air 12/23/24 13:30 12/23/24 13:06 12/23/24 13:02 12/23/24 13:00 12/23/24 12:30 12/23/24 12:03 12/23/24 12:00 Room Air 12/23/24 12:00 12/23/24 11:51 Room Air 12/23/24 11:34 Room Air Laboratory Results 12/23/24 12:40 12/23/24 14:26 Coding Level of Care Code 41106 CRITICAL CARE 1ST 30-74M Diagnoses Increased anion gap metabolic acidosis E87.29 Nausea & vomiting R11.2 Epigastric abdominal pain R10.13 Mood disorder F39 Polysubstance abuse F19.10 Transaminitis R74.01
[2024-12-23] MEDS ORDERED: PANTOprazole 40 MG/10 ML SYR IV SCH (16:20)
[2024-12-23 16:38] LABS: Potassium 4.5 mmol/L (3.5-5.1)
[2024-12-23 16:43] LABS: Amphetamines+Metham, Urine Neg (Neg); MDMA (Ecstacy), Urine Pos (Neg); Marijuana, Urine Pos (Neg)
[2024-12-23 16:44] LABS: Lipase 7.0 U/L (11-82)
[2024-12-23] MEDS: FOLIC ACID 1 MG in SYRINGE 9.8 ML IV SCH (17:54)
[2024-12-23] MEDS: D5W AND 1/2NSS 1,000 ML IV SCH (17:54)
[2024-12-23] MEDS: THIAMINE HCL 500 MG in SODIUM CHLORIDE 0.9% 50 ML IV SCH (17:54)
[2024-12-23] MEDS: POTASSIUM CHLORIDE / WTR 10 MEQ/100 ML PLCT IV SCH (17:59)
[2024-12-23] MEDS: MAGNESIUM SULFATE / D5W 1 GM/100 ML BAG IV SCH (17:59)
[2024-12-23] MEDS: 4.5GM X1 IV STA (18:18)
[2024-12-23] MEDS: ENOXAPARIN INJ 40 MG/0.4 ML SYR SQ SCH (18:20)
[2024-12-23 18:58] LABS: Anion Gap 15.0 (3-11); Blood Urea Nitrogen 7.0 mg/dl (6-23); Calcium 7.2 mg/dl (8.6-10.3); Carbon Dioxide 10.0 mmol/L (21-32); Chloride 109.0 mmol/L (98-107); Creatinine Clr Calc Pharmacy 112.9 ml/min; Glucose 128.0 mg/dl (70-99(Fasting)); Potassium 4.1 mmol/L (3.5-5.1); Sodium 134.0 mmol/L (136-145)
[2024-12-23 19:03] LABS: Acetaminophen < 3 ug/ml (10-30); Salicylate < 3.0 mg/dl (3.0-30)
[2024-12-23] MEDS: CALCIUM GLUCONATE 1,000 MG/60 ML BAG IV SCH (19:44)
[2024-12-23] MEDS: LACTATED RINGER'S 500 ML IV ONE (19:44)
[2024-12-23] MEDS: OPTIRAY 320 100ml IV ONE (19:57)
--- NOTE | 2024-12-23 20:43 | CT Scan Report ---
EXAMINATION: Chest CT with CLINICAL HISTORY: Hematemesis PRIORS: None TECHNIQUE: Contiguous axial images were obtained through the chest with the use of intravenous contrast. Sagittal and coronal reformations are supplied. FINDINGS: The chest is well-expanded. Calcified granuloma present in the right lung. No dominant soft tissue mass, pleural effusion or airspace consolidation. No adenopathy in the chest. Trachea and mainstem bronchi are patent. Heart size is normal. No pleural or pericardial effusion. Thyroid is normal size. Limited visualization of the upper abdomen shows fatty infiltration of the liver. In bone windows, no acute osseous abnormality. IMPRESSION: No CT evidence of an acute cardio pulmonary process. Electronically signed by Marcia Sanches 12-23-2024 8:41 PM
[2024-12-23] MEDS: PANTOprazole 40 MG/10 ML SYR IV SCH (20:55)
--- NOTE | 2024-12-23 21:09 | CT Scan Report ---
CT of the abdomen pelvisWith contrast Technique: Postcontrast axial images of the abdomen pelvis. Coronal and sagittal reformatted images made available for review No comparison Findings: Lung bases are clear Hepatic steatosis. Borderline hepatomegaly. Calcified granuloma within the spleen. Hyperdensity seen within the gallbladder likely representing biliary sludge versus tiny gallstones. No CT evidence however to suggest acute cholecystitis. Solid abdominal organs are otherwise unremarkable in appearance. Normal-appearing appendix. No free air or intestinal obstruction. Urinary bladder is mildly distended. Bone windows demonstrate no focal abnormality Impression Mild distention of the urinary bladder Borderline hepatomegaly Hepatic steatosis Probable cholelithiasis without CT evidence of acute cholecystitis Distention of the urinary bladder. Electronically signed by Tony Williamson 12-23-2024 9:08 PM
[2024-12-24] MEDS: PIPERACILLIN/TAZOBACTAM 4.5 GM/100 ML BAG IV SCH (00:14)
[2024-12-24] MEDS: ALBUT/IPRATROP 3MG/0.5MG NEB 3 ML VIAL NEB PRN (04:37)
[2024-12-24 06:03] LABS: Hematocrit (blood only) 38.8 % (37.0-47.0); Hemoglobin 13.5 g/dl (12.0-16.0); Mean Corpuscular Hemoglobin 35.6 pg (25.0-34.0); Mean Corpuscular Volume 102.4 fL (80.0-100.0); Platelet Count 110 K/uL (130-400); RDW Standard Deviation 53.5 fL (36.4-46.3); Red Blood Count 3.79 M/uL (4.20-5.40); White Blood Count 8.76 K/ul (4.8-10.8)
[2024-12-24 06:05] LABS: Alanine Aminotransferase 51 U/L (7-52); Albumin Globulin Ratio 1.6 (0.9-2); Alkaline Phosphatase 47 U/L (34-104); Anion Gap 7 (3-11); Bilirubin,Total 1.5 mg/dl (0.2-1.0); Blood Urea Nitrogen 6 mg/dl (6-23); Calcium 7.9 mg/dl (8.6-10.3); Carbon Dioxide 20 mmol/L (21-32); Chloride 107 mmol/L (98-107); Creatinine Clr Calc Pharmacy 112.8 ml/min; Globulin 2.3 gm/dl (2.5-4.0); Glucose 127 mg/dl (70-99(Fasting)); Magnesium 2.1 mg/dl (1.7-2.4); Potassium 3.5 mmol/L (3.5-5.1); Sodium 134 mmol/L (136-145); Total Protein 5.9 gm/dl (6.0-8.3)
[2024-12-24] MEDS ORDERED: POTASSIUM PHOS 3 MMOL/1 ML INFUSION IV STA (07:09)
[2024-12-24] MEDS: POTASSIUM PHOSPHATE 30 MMOL in SODIUM CHLORIDE 0.9% 500 ML IV ONE (07:42)
--- NOTE | 2024-12-24 08:20 | Electrocardiogram Report ---
Test Reason : Blood Pressure : */* mmHG Vent. Rate : 121 BPM Atrial Rate : 121 BPM P-R Int : 132 ms QRS Dur : 70 ms QT Int : 374 ms P-R-T Axes : -26 -3 -23 degrees QTcB Int : 531 ms Sinus tachycardia Cannot rule out Anterior infarct (cited on or before 08-Nov-2024) Low voltage QRS Abnormal ECG When compared with ECG of 08-Nov-2024 19:17, Questionable change in initial forces of Anterior leads Inverted T waves have replaced nonspecific T wave abnormality in Inferior leads Nonspecific T wave abnormality no longer evident in Anterior leads Confirmed by Danna Ordonez (Melita) on 12/24/2024 8:19:48 AM Referred By: REFERRED SELF Confirmed By: Danna Ordonez
[2024-12-24] MEDS: MULTIVITAMIN TAB PO SCH (08:40)
[2024-12-24] MEDS ORDERED: FOLIC ACID 1 MG TAB PO SCH (09:00)
--- NOTE | 2024-12-24 09:34 | Critical Care Progress Note ---
Date of Service December 24, 2024 Assessment & Plan (1) Metabolic acidosis: (2) Transaminitis: (3) Nausea & vomiting: (4) Epigastric pain: (5) Hypophosphatemia: (6) Alcohol withdrawal: Plan Reason Critically Ill: 29-year-old female coming to the hospital with complaints of nausea and vomiting since 12/22/24 with hematemesis. Was found to be severely acidotic in the ED. Past medical history: Alcohol abuse, recurrent pancreatitis, anxiety/mood disorder, daily marijuana smoking Pt is stable and able to downgrade to medical with telemetry Neuro - [facility]: Negative --Mood disorder Holding bupropion as well as gabapentin --History of alcohol abuse Last drink 12/23/2019 5 in the afternoon Alcohol level 56 Received 130mg and 65mg does of phenobarbital on 12/23 AWSS protocol Ativan Continue with high-dose thiamine, folic acid Cardiac - -- Tachycardia Multifactorial Likely from hypovolemia as well as questionable withdrawal Respiratory - -- Saturating well on room air Does have hyperinflated lungs going towards COPD/asthma-like picture GI - -- Hematemesis Likely from retching, CT chest negative for Boerhaave's Stable H&H Added Zofran po 4mg q4h PRN Continue IV pantoprazole 40mg BID Consider repeat Lipase -- Transaminitis Mild elevation of AST and ALT Continue to trend RENAL/LYTES - -- HAGMA Anion gap is now closed Monitor --Hypophosphatemia <1.0 this am Replaced with potassium phosphate Will monitor with repeat lab at 1200 ENDO - -- Hypoglycemia on presentation There is a possibility patient had starvation ketoacidosis Has been receiving D5, 1/2 NS at 75mls/hr BSG with am was 126 Consider Follow-up UA for ketones HEME - -- Macrocytic anemia Monitor H&H ID - -- Leukocytosis at admission No clear source of infection on the chest x-ray or CT abdomen UA at admission 3+ positive blood, 1+ bacteria, negative for nitrites, Leuk esterace- pt asymptomatic Started on Zosyn at admission WBC this am is 8.76 DC Zosyn this am --Prophylaxis VTE: Lovenox 40mg GI: Pantoprazole 40mg BID Lines: Peripheral Diet: N.p.o. Admission and Anticipated Discharge Date Admission Date: December 23, 2024 Supervising Physician Co-Signing Physician Notes Dr. Payton was resident physician during care of patient. I separately evalua elizabeth patient for marie portions of the history and the exam. I was present during the critical portion of medical decision making, and I discussed the case with the resident. I generally agree with the findings and plan. Stable for downgrade out of ICU. Discontinuing Zosyn, no strong indication for urinary tract symptoms to necessitate empiric treatment Subjective Pt reports significant abdominal pain and nausea this morning. Per nursing, overnight, pt slept well, AWSS 7-14. Review of Systems Review of Systems: As per HPI Physical Exam Physical Exam: GENERAL APPEARANCE: AxOx4, restless, but able to answer questions HEENT: NC, AT. MMM. EOMI, clear conjunctiva, oropharynx clear. NECK: Supple without lymphadenopathy. No stiffness or restricted ROM. HEART: tachycardic LUNGS: CTAB, moving air well. No crackles or wheezes are heard. ABDOMEN: Soft, general tenderness at all 4 quadrants, BS+ EXTREMITIES: Without cyanosis, clubbing or edema. NEUROLOGICAL: Grossly nonfocal. Alert and oriented, moving all 4 extremities. CN not formally tested but appear grossly intact Skin: Warm and dry, without any rash. Results & Data Results & Data Vital Signs (Past 12 Hours) Vital Signs Pulse Pulse Resp BP Pulse Ox O2 Del Method 12/24/24 09:12 118 H 21 12/24/24 09:01 152/107 H 12/24/24 08:54 113 H 33 H 12/24/24 08:09 106 H 33 H 97 12/24/24 08:01 99/59 L 12/24/24 07:54 108 H 30 H 96 12/24/24 07:01 145/96 H 12/24/24 07:00 110 H 26 H 98 12/24/24 06:00 103/70 12/24/24 06:00 103/70 12/24/24 05:54 115 H 31 H 96 12/24/24 05:00 126 H 17 99 12/24/24 04:35 112 H 27 H 97 Room Air 12/24/24 04:15 128 H 26 H 99 12/24/24 03:12 115 H 31 H 96 12/24/24 03:00 97/60 L 12/24/24 03:00 97/60 L 12/24/24 02:51 118 H 28 H 95 12/24/24 02:00 116 H 32 H 97 12/24/24 02:00 105/67 12/24/24 02:00 105/67 12/24/24 02:00 105/67 12/24/24 01:00 123 H 23 96 12/24/24 01:00 116/80 12/24/24 00:00 131 H 26 H 97 12/24/24 00:00 96/60 L 12/24/24 00:00 96/60 L 12/23/24 23:03 132 H 28 H 96 12/23/24 23:00 119/80 12/23/24 22:48 131 H 25 H 96 12/23/24 22:09 134 H 31 H 97 12/23/24 22:00 93/51 L 12/23/24 22:00 93/51 L 12/23/24 21:57 137 H 18 98 Resident Activity Tracking Resident Involvement: Resident Care Provided Care Provided: Pediatric Care (6) Alcohol withdrawal Complication of substance-induced condition: with unspecified complication Qualified Code(s): F10.939 - Alcohol use, unspecified with withdrawal, unspecified
[2024-12-24] MEDS: ONDANSETRON 4 MG OD TAB PO PRN (10:44)
[2024-12-24 12:10] LABS: Anion Gap 6.0 (3-11); Blood Urea Nitrogen 4.0 mg/dl (6-23); Calcium 7.7 mg/dl (8.6-10.3); Carbon Dioxide 21.0 mmol/L (21-32); Chloride 108.0 mmol/L (98-107); Creatinine Clr Calc Pharmacy 145.6 ml/min; Glucose 113.0 mg/dl (70-99(Fasting)); Magnesium 2.1 mg/dl (1.7-2.4); Potassium 3.8 mmol/L (3.5-5.1); Sodium 135.0 mmol/L (136-145)
[2024-12-24] MEDS ORDERED: chlordiazePOXIDE ALCOHOL WITHDRAWL 25MG PO STA (12:30)
[2024-12-24] MEDS: PROMETHAZINE 6.25 MG/50.25 ML BAG IV PRN (13:10)
--- NOTE | 2024-12-24 13:29 | Billing Data ---
Date of Service December 24, 2024 Coding Level of Care Code 35673 SUB INP/OBS CARE
[2024-12-24] MEDS: METOCLOPRAMIDE HCL INJ 5 MG/ML 2 ML VIAL IV PRN (17:45)
--- NOTE | 2024-12-24 18:37 | Hospitalist Progress Note ---
Date of Service December 24, 2024 Assessment & Plan (1) High serum osmolar gap: (2) Nausea & vomiting: Plan per admitting service notes with addendum: Ms Davidson is a 29 year old woman with past medical history remarkable for alcohol use disorder, recurrent pancreatitis, chronic thrombocytopenia, AFLD, anxiety/mood disorder, ongoing alcohol abuse, past tobacco abuse who is admitted to ICU for management of severe anion gap acidosis and alcohol withdrawal. Patient with high risk for severe withdrawal, as well as multiple metabolic abnormalities requiring critical care monitoring #High Anion Gap Metabolic Acidosis #Nausea and Vomiting #Hematemesis #Severe dehydration #Hx of recurrent pancreatitis Gap 25, HCO3 7, suspect etoh and starvation ketosis contributing reviewed ICU documentation lipase 7 Trend hgb D51/2NS for now Continue PPI BID IV replace electrolytes prn concern for possible aspiration, zosyn empirically CT ab/p ordered to assess for pancreatitis CT chest to assess for abnormality iso hematemesis 12/24 acidosis resolved Still having some epigastric discomfort and nausea possible underlying gastritis or peptic ulcer disease related to alcohol intake hemoglobin 13 which is around her baseline CT abdomen and pelvis: No acute process, borderline hepatomegaly; hepatic steatosis; probable cholelithiasis without CT evidence of acute cholecystitis add sucralfate 4 times daily, continue Protonix IV twice daily N.p.o. for now, hopefully can advance to clear liquids tomorrow CT chest: No acute process Zosyn discontinued #Hypoglycemia perhaps 2/2 component of starvation ketosis d51/2NS for now while npo hypoglycemia protocol per ICU -- BSG 113-128 #Alcohol Use Disorder #High Risk Withdrawal continue AWSS, ativan prn for now s/p 130 IV phenobarbital and 65mg IV follow up thereafter IV thiamine 500mg q8 x 3 days iso possible starvation ketosis IV folate until able to take po -- No additional phenobarbital IV administered since doses given at the ER LEANA score this morning 8, this evening 6 Librium protocol ordered with as needed IV Ativan -- continue to monitor closely #Sinus Tachycardia iso severe acidosis, dehydration, etoh withdrawal monitor on tele fluid resuscitation and ciwa as above #Transaminitis #Hepatic steatosis and hepatomegaly - LFT elevation resolved, INR 1.0 telemedicine visit with Hepatology on 11/21, patient did not report to feel concerned about her alcohol use at this time despite counseling over having "alc oholic pancreatitis/hepatitis, fatty liver that all of this can progress over time with continued use of ethanol to potentially cirrhosis" -- T. bili slightly elevated 1.5, AST 40, ALT 51, alk phos 47 CT abdomen pelvis as above -- repeat LFTs in a.m. #Hemoconcentrated CBC #Hx of Chronic Thrombocytopenia secondary to Liver disease typically in 90-110s, today elevated, anticipate downtrend hgb 17, likely concentrated iso vomiting, anticipate downtrend, baseline 12 continue to monitor for bloody out put as well -- hemoglobin 13 which is around her baseline #Depression continue wellbutrin and gabapentin dvt ppx scd Full code Transition to PCU plan of care discussed with patient in detail and at length all questions answered she is understanding, agreeable, comfortable with the plan of care Admission and Anticipated Discharge Date Admission Date: December 23, 2024 Subjective seen with ANNETTE Woodson throughout whole encounter Sleeping but easily awakened States she still has some abdominal discomfort, and nausea Feels anxious but no tremors, sweating, hallucinations or confusion No chest pain, shortness of breath, palpitations, dizziness denies depression, suicidal ideation No other new symptoms Review of Systems Review of Systems: all noted and negative except for above Physical Exam Physical Exam: General- oriented x 3, not in distress, speaks in sentences with no effort or accessory muscle use Eyes- anicteric Neck- no JVD Lungs- clear breath sounds bilaterally, no rales/wheezes Heart- normal rate, regular rhythm; no murmurs Abdomen- normal bowel sounds, nondistended, soft, mild epigastric tenderness Extremities- no pretibial edema, no calf tenderness Neuro- alert, oriented x 3; no gross focal neurologic deficits Skin- warm & dry Results & Data Results & Data Vital Signs (Past 12 Hours) Vital Signs Temp Pulse Pulse Resp BP BP Pulse Ox 12/24/24 15:46 122 H 12/24/24 15:40 36.9 C 104 H 27 H 127/88 95 12/24/24 14:48 107 H 31 H 12/24/24 14:24 105 H 17 12/24/24 13:36 99 H 29 H 12/24/24 13:03 103 H 31 H 12/24/24 13:00 115/78 12/24/24 12:33 104 H 25 H 12/24/24 12:00 130/86 12/24/24 12:00 37.1 C 12/24/24 11:51 115 H 22 12/24/24 11:41 125 H 20 12/24/24 11:02 115 H 29 H 12/24/24 11:00 111/78 12/24/24 10:59 117 H 28 H 12/24/24 10:35 37.1 C 12/24/24 10:32 106 H 28 H 12/24/24 10:31 148/94 H 12/24/24 10:26 143 H 22 12/24/24 10:15 110 H 31 H 12/24/24 10:01 128/91 12/24/24 09:42 105 H 31 H 12/24/24 09:30 105 H 22 12/24/24 09:12 118 H 21 12/24/24 09:01 152/107 H 12/24/24 08:54 113 H 33 H 12/24/24 08:09 106 H 33 H 97 12/24/24 08:01 99/59 L 12/24/24 08:00 36.9 C 12/24/24 07:54 108 H 30 H 96 12/24/24 07:01 145/96 H 12/24/24 07:00 110 H 26 H 98 O2 Del Method 12/24/24 15:46 12/24/24 15:40 Room Air 12/24/24 14:48 12/24/24 14:24 12/24/24 13:36 12/24/24 13:03 12/24/24 13:00 12/24/24 12:33 12/24/24 12:00 12/24/24 12:00 12/24/24 11:51 12/24/24 11:41 12/24/24 11:02 12/24/24 11:00 12/24/24 10:59 12/24/24 10:35 12/24/24 10:32 12/24/24 10:31 12/24/24 10:26 12/24/24 10:15 12/24/24 10:01 12/24/24 09:42 12/24/24 09:30 12/24/24 09:12 12/24/24 09:01 12/24/24 08:54 12/24/24 08:09 12/24/24 08:01 12/24/24 08:00 12/24/24 07:54 12/24/24 07:01 12/24/24 07:00 all noted and reviewed including below
[2024-12-24] MEDS: POT PHOSPHATE MONOBASIC W/ SOD TAB PO SCH (20:59)
[2024-12-24] MEDS: SUCRALFATE 1 GM/10 ML UDC PO SCH (20:59)
[2024-12-25 04:52] LABS: Hematocrit (blood only) 37.4 % (37.0-47.0); Hemoglobin 13.6 g/dl (12.0-16.0); Immature Granulocytes # (auto) 0.02 K/uL (0.01-0.20); Immature Granulocytes % (auto) 0.5 %; Mean Corpuscular Hemoglobin 36.9 pg (25.0-34.0); Mean Corpuscular Volume 101.4 fL (80.0-100.0); Platelet Count 110 K/uL (130-400); RDW Standard Deviation 51.8 fL (36.4-46.3); Red Blood Count 3.69 M/uL (4.20-5.40); White Blood Count 4.27 K/ul (4.8-10.8)
[2024-12-25 05:25] LABS: Alanine Aminotransferase 43 U/L (7-52); Alkaline Phosphatase 49 U/L (34-104); Bilirubin,Total 1.1 mg/dl (0.2-1.0); Lipase 7 U/L (11-82); Magnesium 2.0 mg/dl (1.7-2.4); Total Protein 6.3 gm/dl (6.0-8.3)
--- NOTE | 2024-12-25 07:13 | Hospitalist Progress Note ---
Date of Service December 25, 2024 Assessment & Plan (1) High serum osmolar gap: (2) Nausea & vomiting: Plan Ms Davidson is a 29 year old woman with past medical history remarkable for alcohol use disorder, recurrent pancreatitis, chronic thrombocytopenia, AFLD, anxiety/mood disorder, ongoing alcohol abuse, past tobacco abuse who is admitted to ICU for management of severe anion gap acidosis and alcohol withdrawal. Patient with high risk for severe withdrawal, as well as multiple metabolic abnormalities requiring critical care monitoring on admission Patient with improvement in labs and stabilization of vital signs. Downgraded to PCU yesterday. Today, advancing diet slowly and resuming home medications. #High Anion Gap Metabolic Acidosis #Nausea and Vomiting #Hematemesis #Severe dehydration #Hx of recurrent pancreatitis Gap 25, HCO3 7, suspect etoh and starvation ketosis contributing reviewed ICU documentation lipase 7 discontinue IVF replace electrolytes prn discontinued off abx CT ab/p no acute process CT chest no acute process continue sucralfate 4 times daily, continue Protonix IV twice daily advance diet as tolerated #Hypophosphatemia replace po and IV repeat level this afternoon and trend in am #Hypoglycemia perhaps 2/2 component of starvation ketosis -- BSG 113-128 #Alcohol Use Disorder #High Risk Withdrawal continue AWSS, ativan prn for now s/p 130 IV phenobarbital and 65mg IV follow up thereafter IV thiamine 500mg q8 x 3 days iso possible starvation ketosis IV folate until able to take po -- No additional phenobarbital IV administered since doses given at the ER LEANA score this morning 8, this evening 6 Librium protocol ordered with as needed IV Ativan -- continue to monitor closely #Sinus Tachycardia resolved iso severe acidosis, dehydration, etoh withdrawal monitor on tele fluid resuscitation and ciwa as above #Transaminitis resolved #Hepatic steatosis and hepatomegaly - LFT elevation resolved, INR 1.0 telemedicine visit with Hepatology on 11/21, patient did not report to feel concerned about her alcohol use at this time despite counseling over having "alcoholic pancreatitis/hepatitis, fatty liver that all of this can progress over time with continued use of ethanol to potentially cirrhosis" -- T. bili slightly elevated 1.5, AST 40, ALT 51, alk phos 47 CT abdomen pelvis as above -- repeat LFTs in a.m. #Hemoconcentrated CBC #Hx of Chronic Thrombocytopenia secondary to Liver disease typically in 90-110s, today elevated, anticipate downtrend hgb 17, likely concentrated iso vomiting, anticipate downtrend, baseline 12 continue to monitor for bloody out put as well -- hemoglobin 13 which is around her baseline #Depression continue wellbutrin and gabapentin dvt ppx scd Full code PCU likely diso 1-2 days Admission and Anticipated Discharge Date Admission Date: December 23, 2024 Subjective NAEO reports still with some throat discomfort with swallowing reports feeling better than day of admission, just mostly weak, but able to get to bathroom Physical Exam Constitutional: WD/WN, vitals as above Respiratory: normal respiratory effort, lungs clear to auscultation Cardiovascular: RRR, no murmur, no edema Gastrointestinal (Abdomen): normal bowel sounds, soft, nontender, no hepatos plenomegaly Results & Data Results & Data Vital Signs (Past 12 Hours) Vital Signs Temp Pulse Pulse Resp BP BP Pulse Ox 12/25/24 06:38 36.9 C 81 24 118/71 95 12/25/24 06:09 85 27 H 12/25/24 05:09 120 H 24 12/25/24 04:03 87 26 H 12/25/24 03:21 86 27 H 12/25/24 02:33 68 24 12/25/24 01:06 78 26 H 12/25/24 00:00 93 H 27 H 12/24/24 23:03 112 H 29 H 12/24/24 22:06 88 25 H 12/24/24 21:30 97 H 19 12/24/24 21:08 126/88 12/24/24 21:08 126/88 12/24/24 21:08 126/88 12/24/24 21:08 126/88 12/24/24 21:06 126 H 15 12/24/24 21:00 109 H 17 12/24/24 20:36 92 H 26 H 12/24/24 20:00 102 H 28 H 12/24/24 20:00 12/24/24 19:51 97 H 27 H O2 Del Method 12/25/24 06:38 Room Air 12/25/24 06:09 12/25/24 05:09 12/25/24 04:03 12/25/24 03:21 12/25/24 02:33 12/25/24 01:06 12/25/24 00:00 12/24/24 23:03 12/24/24 22:06 12/24/24 21:30 12/24/24 21:08 12/24/24 21:08 12/24/24 21:08 12/24/24 21:08 12/24/24 21:06 12/24/24 21:00 12/24/24 20:36 12/24/24 20:00 12/24/24 20:00 Room Air 12/24/24 19:51 Laboratory Results Short CBC 12/25/24 Range/Units 04:30 WBC 4.27 L (4.8-10.8) K/ul Hgb 13.6 (12.0-16.0) g/dl Hct 37.4 (37.0-47.0) % Plt Count 110 L (130-400) K/uL Liver Function 12/25/24 12/25/24 Range/Units 04:30 05:37 Total Bilirubin 1.1 H (0.2-1.0) mg/dl Direct Bilirubin TNP 0.2 AST TNP 35 ALT 43 (7-52) U/L Alkaline Phosphatase 49 (34-104) U/L Albumin 3.4 (3.4-5.0) gm/dl Medications Administered Home Medications Medication Instructions Recorded Confirmed Last Taken folic acid 1 mg tablet 1 mg PO QAM #30 tabs 10/06/23 12/23/24 11/04/24 gabapentin 100 mg capsule 100 mg PO TID #60 caps 10/06/23 12/23/24 11/04/24 albuterol sulfate 90 mcg/actuation 2 puff inhalation Q4 PRN cough or 11/07/24 12/23/24 Unknown aerosol inhaler wheeze ferrous sulfate 325 mg (65 mg 325 mg PO QAM 11/07/24 12/23/24 11/04/24 iron) tablet amoxicillin 875 mg-potassium 1 tab PO BID 12/23/24 12/23/24 Unknown clavulanate 125 mg tablet bupropion HCl 200 mg tablet,12 hr 200 mg PO QAM 12/23/24 12/23/24 Unknown sustained-release cetirizine 10 mg tablet 10 mg PO DAILY 12/23/24 12/23/24 Unknown norethindrone (contraceptive) 0.35 0.35 mg PO QAM 12/23/24 12/23/24 Unknown mg tablet Active Medications Generic Name Dose Route Start Last Admin Trade Name Freq PRN Reason Stop Dose Admin Albuterol 3 ml 12/23/24 17:34 12/24/24 04:37 Albut/Ipratrop 3mg/0.5mg Neb 3 Ml Vial NEB 01/22/25 17:33 3 ml Q6H PRN Administration wheezing Protocol Chlordiazepoxide HCl 25 mg 12/25/24 14:45 12/24/24 23:36 Chlordiazepoxide Hcl 25 Mg Cap PO 12/26/24 06:46 25 mg Q8H CHUN Administration Enoxaparin Sodium 40 mg 12/23/24 18:00 12/24/24 17:44 Enoxaparin Inj 40 Mg/0.4 Ml Syr SQ 01/22/25 17:59 40 mg Q24H CHUN Administration Thiamine HCl 500 mg/ Sodium 55 mls @ 210 mls/hr 12/23/24 17:00 12/25/24 08:23 Chloride IV 12/26/24 09:16 Infused Q8H CHUN Infusion Pantoprazole Sodium 40 mg in 10 mls @ 5 mls/min 12/23/24 21:00 12/25/24 08:14 Protonix IV 01/22/25 20:59 5 mls/min BID CHUN Administration Promethazine HCl 6.25 mg in 50.25 mls @ 201 mls/hr 12/24/24 12:30 12/25/24 12:40 Phenergan IV 01/23/25 12:29 Infused Q6H PRN Infusion Nausea And Vomiting Lorazepam 1 mg 12/23/24 13:23 12/24/24 16:02 Lorazepam 2 Mg/1 Ml Vial IV 01/22/25 13:22 1 mg UD PRN Administration EtOH Withdrawal AWSS Score 6,7 Protocol Lorazepam 2 mg 12/23/24 13:23 12/25/24 12:08 Lorazepam 2 Mg/1 Ml Vial IV 01/22/25 13:22 2 mg UD PRN Administration EtOH Withdrawal AWSS Score 8,9 Protocol Metoclopramide HCl 10 mg 12/24/24 17:25 12/25/24 09:03 Metoclopramide Hcl Inj 5 Mg/Ml 2 Ml Vial IV 01/23/25 17:24 10 mg Q6H PRN Administration Nausea Multivitamins 1 tab 12/24/24 09:00 12/25/24 08:14 Multivitamin Tab PO 01/23/25 08:59 1 tab QAM CHUN Administration Ondansetron HCl 4 mg 12/24/24 10:25 12/24/24 10:44 Ondansetron 4 Mg Od Tab PO 01/23/25 10:24 4 mg Q4H PRN Administration Nausea And Vomiting Potassium Phosphate 2 tab 12/24/24 21:00 12/25/24 12:05 Pot Phosphate Monobasic W/ Sod Tab PO 01/23/25 20:59 2 tab QID CHUN Administration Sucralfate 1 gm 12/24/24 21:00 12/25/24 12:05 Sucralfate 1 Gm/10 Ml Udc PO 01/23/25 20:59 1 gm QID CHUN Administration
[2024-12-25] MEDS ORDERED: POTASSIUM PHOS 3 MMOL/1 ML INFUSION IV STA (07:16)
[2024-12-25] MEDS: CALCIUM GLUCONATE 1,000 MG/60 ML BAG IV SCH (08:11)
[2024-12-25] MEDS: POTASSIUM PHOSPHATE 21 MMOL in SODIUM CHLORIDE 0.9% 500 ML IV ONE (08:15)
--- NOTE | 2024-12-25 13:15 | Electrocardiogram Report ---
Test Reason : Blood Pressure : */* mmHG Vent. Rate : 95 BPM Atrial Rate : 95 BPM P-R Int : 140 ms QRS Dur : 82 ms QT Int : 384 ms P-R-T Axes : 25 65 46 degrees QTcB Int : 482 ms Normal sinus rhythm QTcB >= 480 msec Abnormal ECG When compared with ECG of 23-Dec-2024 11:43, Questionable change in QRS axis Nonspecific T wave abnormality has replaced inverted T waves in Inferior leads Confirmed by Akbar Khalil ([id number]) on 12/25/2024 1:14:53 PM Referred By: REFERRED SELF Confirmed By: Akbar Khalil
[2024-12-25 13:50] LABS: Anion Gap 8.0 (3-11); Blood Urea Nitrogen 4.0 mg/dl (6-23); Calcium 8.3 mg/dl (8.6-10.3); Carbon Dioxide 23.0 mmol/L (21-32); Chloride 107.0 mmol/L (98-107); Creatinine Clr Calc Pharmacy 154.0 ml/min; Glucose 92.0 mg/dl (70-99(Fasting)); Magnesium 1.8 mg/dl (1.7-2.4); Potassium 3.6 mmol/L (3.5-5.1); Sodium 138.0 mmol/L (136-145)
[2024-12-25] MEDS: CETIRIZINE HCL 10 MG TABLET PO SCH (14:06)
[2024-12-25] MEDS: GABAPENTIN 100 MG CAP PO SCH ×2 (14:18→18:20)
[2024-12-25] MEDS: GABAPENTIN 100 MG CAP PO STA ×2 (15:17→15:18)
[2024-12-26 05:01] LABS: Hematocrit (blood only) 37.8 % (37.0-47.0); Hemoglobin 13.6 g/dl (12.0-16.0); Mean Corpuscular Hemoglobin 36.5 pg (25.0-34.0); Mean Corpuscular Volume 101.3 fL (80.0-100.0); Platelet Count 105 K/uL (130-400); RDW Standard Deviation 50.5 fL (36.4-46.3); Red Blood Count 3.73 M/uL (4.20-5.40); White Blood Count 4.59 K/ul (4.8-10.8)
[2024-12-26 05:19] LABS: Alanine Aminotransferase 38.0 U/L (7-52); Albumin Globulin Ratio 1.2 (0.9-2); Alkaline Phosphatase 53.0 U/L (34-104); Anion Gap 8.0 (3-11); Bilirubin,Total 0.9 mg/dl (0.2-1.0); Blood Urea Nitrogen 6.0 mg/dl (6-23); Calcium 8.2 mg/dl (8.6-10.3); Carbon Dioxide 24.0 mmol/L (21-32); Chloride 105.0 mmol/L (98-107); Creatinine Clr Calc Pharmacy 143.0 ml/min; Globulin 2.8 gm/dl (2.5-4.0); Glucose 88.0 mg/dl (70-99(Fasting)); Magnesium 1.8 mg/dl (1.7-2.4); Potassium 3.0 mmol/L (3.5-5.1); Sodium 137.0 mmol/L (136-145); Total Protein 6.2 gm/dl (6.0-8.3)
[2024-12-26] MEDS: MAGNESIUM SULFATE / D5W 1 GM/100 ML BAG IV SCH (08:01)
[2024-12-26] MEDS: POTASSIUM CHLORIDE / WTR 10 MEQ/100 ML PLCT IV SCH (08:01)
[2024-12-26] MEDS: POTASSIUM CHLORIDE CRTAB 20 MEQ TABCR PO STA (08:01)
[2024-12-26] MEDS: FOLIC ACID 1 MG TAB PO SCH (08:04)
[2024-12-26] MEDS: FERROUS SULFATE 325 MG TAB PO SCH (08:05)
--- NOTE | 2024-12-26 12:39 | Hospitalist Progress Note ---
Date of Service December 26, 2024 Assessment & Plan (1) High serum osmolar gap: (2) Nausea & vomiting: Plan Ms Davidson is a 29 year old woman with past medical history remarkable for alcohol use disorder, recurrent pancreatitis, chronic thrombocytopenia, AFLD, anxiety/mood disorder, ongoing alcohol abuse, past tobacco abuse who is admitted to ICU for management of severe anion gap acidosis and alcohol withdrawal. Patient with high risk for severe withdrawal, as well as multiple metabolic abnormalities requiring critical care monitoring on admission Patient with improvement in labs and stabilization of vital signs. Patient still with notable pain and discomfort while eating, but improving slowly with some relief from sucralafate. Down grade to med-tele with planned dispo in 24 hours #High Anion Gap Metabolic Acidosis #Nausea and Vomiting #Hematemesis #Severe dehydration #Hx of recurrent pancreatitis Gap 25, HCO3 7, suspect etoh and starvation ketosis contributing reviewed ICU documentation lipase 7 discontinue IVF replace electrolytes prn discontinued off abx CT ab/p no acute process CT chest no acute process continue sucralfate 4 times daily, continue Protonix IV twice daily #Hypokalemia #Hypophosphatemia replace po and IV continue to trend #Hypoglycemia perhaps 2/2 component of starvation ketosis -- BSG 113-128 #Alcohol Use Disorder #High Risk Withdrawal continue AWSS, ativan prn for now s/p 130 IV phenobarbital and 65mg IV follow up thereafter IV thiamine 500mg q8 x 3 days iso possible starvation ketosis IV folate until able to take po -- No additional phenobarbital IV administered since doses given at the ER LEANA score this morning 8, this evening 6 Librium protocol ordered with as needed IV Ativan -- continue to monitor closely #Sinus Tachycardia resolved iso severe acidosis, dehydration, etoh withdrawal monitor on tele fluid resuscitation and ciwa as above #Transaminitis resolved #Hepatic steatosis and hepatomegaly - LFT elevation resolved, INR 1.0 telemedicine visit with Hepatology on 11/21, patient did not report to feel concerned about her alcohol use at this time despite counseling over having "alcoholic pancreatitis/hepatitis, fatty liver that all of this can progress over time with continued use of ethanol to potentially cirrhosis" -- T. bili slightly elevated 1.5, AST 40, ALT 51, alk phos 47 CT abdomen pelvis as above -- repeat LFTs in a.m. #Hemoconcentrated CBC #Hx of Chronic Thrombocytopenia secondary to Liver disease typically in 90-110s, today elevated, anticipate downtrend hgb 17, likely concentrated iso vomiting, anticipate downtrend, baseline 12 continue to monitor for bloody out put as well -- hemoglobin 13 which is around her baseline #Depression continue wellbutrin and gabapentin dvt ppx scd Full code med-tele dispo tomorrow Admission and Anticipated Discharge Date Admission Date: December 23, 2024 Results & Data Results & Data Vital Signs (Past 12 Hours) Vital Signs Pulse Resp BP 12/26/24 08:09 76 24 12/26/24 07:00 68 23 108/67 12/26/24 06:24 83 25 H 12/26/24 05:39 80 23 12/26/24 04:03 82 26 H 118/67 12/26/24 03:03 79 30 H 12/26/24 02:00 79 23 12/26/24 01:15 89 26 H
[2024-12-27 09:43] LABS: Hematocrit (blood only) 37.5 % (37.0-47.0); Hemoglobin 12.9 g/dl (12.0-16.0); Mean Corpuscular Hemoglobin 35.3 pg (25.0-34.0); Mean Corpuscular Volume 102.7 fL (80.0-100.0); Platelet Count 142 K/uL (130-400); RDW Standard Deviation 50.8 fL (36.4-46.3); Red Blood Count 3.65 M/uL (4.20-5.40); White Blood Count 3.62 K/ul (4.8-10.8)
[2024-12-27 10:14] LABS: Anion Gap 7.0 (3-11); Blood Urea Nitrogen 8.0 mg/dl (6-23); Calcium 8.5 mg/dl (8.6-10.3); Carbon Dioxide 24.0 mmol/L (21-32); Chloride 109.0 mmol/L (98-107); Creatinine Clr Calc Pharmacy 159.0 ml/min; Glucose 113.0 mg/dl (70-99(Fasting)); Magnesium 1.8 mg/dl (1.7-2.4); Potassium 3.5 mmol/L (3.5-5.1); Sodium 140.0 mmol/L (136-145)
[2024-12-27] MEDS: LORazepam 0.5 MG TAB PO STA (10:34)
[2024-12-27 11:26] VITALS: TEMP 98.2; O2SAT 96
--- NOTE | 2024-12-27 12:13 | Discharge Summary ---
Discharge Summary Date of Service December 27, 2024 Principal Dx & Hospital Course #1 = Principal Diagnosis (1) High serum osmolar gap: (2) Nausea & vomiting: Plan Ms Davidson is a 29 year old woman with past medical history remarkable for alcohol use disorder, recurrent pancreatitis, chronic thrombocytopenia, AFLD, anxiety/mood disorder, ongoing alcohol abuse, past tobacco abuse who is admitted to ICU for management of severe anion gap acidosis and alcohol withdrawal. Patient with high risk for severe withdrawal, as well as multiple metabolic abnormalities requiring critical care monitoring on admission Patient with improvement in labs and stabilization of vital signs. Patient still with notable pain and discomfort while eating, but improving slowly with some relief from sucralfate. Encouraged patient to follow up with Gastroenterology. Patient on day of discharge was eating well, ambulating independently and denies any other acute concerns. #High Anion Gap Metabolic Acidosis #Nausea and Vomiting #Hematemesis #Severe dehydration #Hx of recurrent pancreatitis Gap 25, HCO3 7, suspect etoh and starvation ketosis contributing reviewed ICU documentation lipase 7 discontinue IVF replace electrolytes prn discontinued off abx CT ab/p no acute process CT chest no acute process continue sucralfate 4 times daily, continue Protonix po twice daily #Hypokalemia #Hypophosphatemia replaced #Hypoglycemia perhaps 2/2 component of starvation ketosis -- BSG 113-128 #Alcohol Use Disorder #High Risk Withdrawal continue AWSS, ativan prn for now s/p 130 IV phenobarbital and 65mg IV follow up thereafter IV thiamine 500mg q8 x 3 days iso possible starvation ketosis IV folate until able to take po -- No additional phenobarbital IV administered since doses given at the ER completed librium taper encouraged cessation #Sinus Tachycardia resolved iso severe acidosis, dehydration, etoh withdrawal #Transaminitis resolved #Hepatic steatosis and hepatomegaly - LFT elevation resolved, INR 1.0 telemedicine visit with Hepatology on 11/21, patient did not report to feel concerned about her alcohol use at this time despite counseling over having "alcoholic pancreatitis/hepatitis, fatty liver that all of this can progress over time with continued use of ethanol to potentially cirrhosis" -- T. bili slightly elevated 1.5, AST 40, ALT 51, alk phos 47 CT abdomen pelvis as above follow up hepatology #Hemoconcentrated CBC #Hx of Chronic Thrombocytopenia secondary to Liver disease typically in 90-110s, today elevated, anticipate downtrend hgb 17, likely concentrated iso vomiting, anticipate downtrend, baseline 12 continue to monitor for bloody out put as well -- hemoglobin 13 which is around her baseline #Depression continue wellbutrin and gabapentin Notes For Next Care Provider Medication Changes From Visit Pantoprazole 40mg BID Sucralfate 1gm QID Admission HPI Per Admitting Provider Ms Davidson is a 29 year old woman with past medical history remarkable for alcohol use disorder, recurrent pancreatitis, chronic thrombocytopenia, AFLD, anxiety/mood disorder, ongoing alcohol abuse, past tobacco abuse who presented to [facility] ED due to abdominal pain, nausea, and vomiting. Patient states she has been drinking about 5 shots every day for weeks. She noted some abdominal pain yesterday, prompting her to stop drinking as she has been vomiting since yesterday afternoon. She states that after multiple times of vomiting, she noted that there was "black-like goo" in her vomit that looked like blood. She denies blood in stool at this time. She reports throat pain when swallowing. She denies chest pain, SOB, or cough. She reports epigastric pain not dissimilar to prior episodes of pancreatitis. EXam limited secondary to patient discomfort She denies current tobacco use, reports daily etoh use, and endorses daily marijuana use. She denies any other ingestion of other liquids/substances out side of bottled drinking liquor/alcohol. In the ED, vitals were notable for BP of 120-160s HR of 110s-130s and O2 sat of high 90s on room air. Afebrile labs with leukocytosis to 14.34, hgb 17.1 (baseline ~12), anion gap acidosis of 25 with hco3 of 7, hypoglycemia to 49, ast 78, alt 82, ldh 338, lipase 7 procal 0.11, ketones in urine Imaging revealed no pneumatosis of acute chest findings; pending CT imaging EKG [id number] sinus tachycardia ED interventions: valium, phenobarbital loading dose 130 IV Consultants: ICU Patient to be admitted to ICU for further evaluation and management of acute alcohol withdrawal Admission Exam Per Admitting Provider GENERAL APPEARANCE: AxOx4,very uncomfortable appearing woman HEENT: NC, AT. MMM. EOMI, clear conjunctiva, oropharynx clear. NECK: Supple without lymphadenopathy. No stiffness or restricted ROM. HEART: tachycardic LUNGS: CTAB, moving air well. No crackles or wheezes are heard. ABDOMEN: Soft, tender in epigastrum BS+ EXTREMITIES: Without cyanosis, clubbing or edema. NEUROLOGICAL: Grossly nonfocal. Alert and oriented, moving all 4 extremities. CN not formally tested but appear grossly intact Skin: Warm and dry without any rash. Discharge Exam Constitutional WD/WN, vitals as above Respiratory normal respiratory effort, lungs clear to auscultation Cardiovascular RRR, no murmur, no edema Gastrointestinal (Abdomen) normal bowel sounds, soft, nontender, no hepatosplenomegaly Updated Medication List Medication Instructions Recorded Confirmed Type albuterol sulfate 90 mcg/actuation 2 puff inhalation Q4 PRN cough or 11/07/24 12/23/24 History aerosol inhaler wheeze ferrous sulfate 325 mg (65 mg 325 mg PO QAM 11/07/24 12/23/24 History iron) tablet amoxicillin 875 mg-potassium 1 tab PO BID 12/23/24 12/23/24 History clavulanate 125 mg tablet bupropion HCl 200 mg tablet,12 hr 250 mg PO QAM 12/23/24 12/26/24 History sustained-release cetirizine 10 mg tablet 10 mg PO DAILY 12/23/24 12/23/24 History norethindrone (contraceptive) 0.35 0.35 mg PO QAM 12/23/24 12/23/24 History mg tablet gabapentin 100 mg capsule 200 mg PO QID 12/26/24 12/26/24 History pantoprazole 40 mg tablet,delayed 40 mg PO DAILY 4 weeks #28 tabs 12/26/24 Rx release sucralfate 100 mg/mL oral 1 g (10 mL) PO QID 14 days #560 mL 12/26/24 Rx suspension Hospital Stay Data Consultations 12/23/24 15:44 Consult Social Problems Specialist Stat 12/23/24 16:08 ED Decision to Admit Stat Diagnostic Imagining Performed 12/23/24 15:55 CT abd pelvis IV con only Stat 12/23/24 16:02 CT chest diagnostic w con Stat Pending Results Patient Have Any Pending Studies at Discharge: No Discharge Instructions Given to Patient (Per Discharging Provider) You were admitted for nausea and vomiting You were found to have acute electrolyte abnormalities due to alcohol ingestion. Your electrolytes and symptoms improved. It is recommended you start the following: -Pantoprazole 40mg two times a day for 28 days, then go to 40mg daily -Sucralafate 1gm with meals and bedtime Please follow up with your [employer] Please talk to your PCP for resources to aid in alcohol cessation when you feel ready Total Time Total Time Spent Total Time Spent (In Minutes): 45
[2024-12-27 15:41] VITALS: BP 93/59; PULSE 92; RESP 18
[2024-12-29 13:08] LABS: Hydrocodone Urine NEGATIVE ng/mL (<50); Hydromor Urine NEGATIVE ng/mL (<50); MDA negative; MDEA negative; MDMA (Ecstasy) Urine, Confirm negative; Marijuana Quant, GCMS Urine 148 ng/mL (<5); Noroxycodone Urine NEGATIVE ng/mL (<50); Oxymorph Urine NEGATIVE ng/mL (<50)
== END 2024-12-27 18:06 | disposition home or self-care (01) | DRG 378 ==
LOC: ED 11:29 → SUATTDRO 16:10 → 1E 16:10 → 2N 12-26 16:27

== ENCOUNTER 2025-03-20 18:49 | Inpatient (IN) ==
[2025-03-20] MEDS: LORazepam 1 MG/1 ML SYR ED Inj Use IV STA ×2 (19:17→20:39)
[2025-03-20] MEDS: ONDANSETRON INJ 2 MG/ML 2 ML VIAL IV STA (19:19)
[2025-03-20] MEDS: KETOROLAC TROMETHAMINE 15 MG/ML VIAL IV STA (19:20)
--- NOTE | 2025-03-20 19:27 | Emergency Department Note ---
Impression & Plan Alcohol withdrawal, High anion gap metabolic acidosis, Hypomagnesemia, Acute dehydration, Acidosis, lactic, Acute hypokalemia, Abnormal transaminases ED Provider Note NAME: DINORA HICKS AGE: 30 SEX: F : 1995 ARRIVES VIA: Walk-In INFORMANT: Patient, partner ED PROVIDER(S): Boni Rod DO CHIEF COMPLAINT: nausea and vomiting HPI: This is a 30-year-old female with the PMHx of alcohol use disorder, marijuana use disorder, bipolar disorder, and asthma presenting to [facility] for further evaluation of severe nausea and vomiting associated with abdominal pain. Patient is accompanied by her partner who provide additional history. patient reports this has been worsening over the last day. She reports multiple episodes of emesis. Reports bilious emesis. Patient states that she has not had an alcoholic beverage approximately 24 hours. Patient states that she feels she is in acute alcohol withdrawal. Did question if she had cyclic vomiting syndrome and she declined this. Patient denies the possibility of . Patient reports no significant abdominal surgical history. She feels her abdominal pain is related to the significant vomiting. They deny fever or chills. No cough or congestion. Denies chest pain or palpitations. No shortness of breath. No urinary complaints. No recent changes in bowel movements. Patient denies recent changes in medications or OTC supplements. Patient offers no other complaints, today. ADDITIONAL HISTORY OBTAINED: Per HPI Chronic Medical/Social Conditions Affecting Care: Per HPI PAST MEDICAL HISTORY: See Below PAST SURGICAL HISTORY: See Below FAMILY HISTORY: See Below SOCIAL HISTORY: See Below HOME MEDICATIONS: See Below ALLERGIES: See Below VITALS: See Below PHYSICAL EXAMINATION: GENERAL: Sitting up in bed, alert, tremulous, ill appearing, well nourished, no distress, non-toxic EYE EXAM: normal conjunctiva. OROPHARYNX: no exudate, no erythema, lips, buccal mucosa, and tongue normal and mucous membranes are dry NECK: supple, no nuchal rigidity, no adenopathy, non-tender LUNGS: Clear to auscultation. Normal chest wall mechanics HEART: no murmurs, tachycardic rate, regular rhythm ABDOMEN: abdomen soft, generalized tenderness to palpation with voluntary guarding, no masses, no rebound. BACK: Back is symmetrical on inspection and there is no deformity, no midline tenderness, no CVA tenderness. SKIN: no rashes and no bruising UPPER EXTREMITIES: upper extremities are grossly normal. LOWER EXTREMITIES: No pitting edema. NEURO EXAM: Normal sensorium, GCS 15, normal speech, no gross weakness of arms, no gross weakness of legs. MEDICAL DECISION MAKING: Differential diagnoses includes but not limited to acute alcohol withdrawal, CVS, electrolyte derangements, dehydration, appendicitis, bowel obstruction, diverticulitis, malignancy, nephrolithiasis, gastroenteritis, ACS, PNA, pancreatitis, hepatobiliary disease, UTI In summary, this is a 30 year old female who presented with severe nausea and vomiting. Differential as above. Nursing notes and pertinent past medical records reviewed. Vital signs reviewed and the patient is tachycardic and tachypneic but otherwise afebrile and hemodynamically stable. History and presentation revealed prolonged history of alcohol use disorder as well as marijuana use. She has been admitted for acute alcohol withdrawal in the past. She states this feels similar. Physical examination revealed as above. As a result of my initial evaluation, IV access was established and the patient was placed on CCRM. Therapeutics ordered include IV fluid resuscitation, IV benzodiazepines and antiemetics. Patient's physical examination and presentation today are consistent with alcohol use disorder with acute and active withdrawal. Patient does appear to be in moderate to severe withdrawal at this time. She appears very uncomfortable and dehydrated. Will prove proceed with benzodiazepines. Would benefit from phenobarbital load. Patient is having some abdominal pain and will continue to look for other organic pathology with a CT scan. Diagnostics interpreted by me include EKG and cardiac monitoring as listed below: -Cardiac Monitoring: An order was placed for continuous cardiac monitoring. The monitor shows a rate of 90-120s with regular rhythm. -ECG: Sinus tachycardia at a rate of [address] segment changes to suggest STEMI. Intervals are within normal limits. Poor baseline. Patient completed laboratory studies and imaging. Results independently interpreted by me are no leukocytosis or anemia. CMP shows acute hypokalemia with high anion gap metabolic acidosis. Likely suspect this is from elevated lactate. Patient does have mild elevation and bilirubin. Mild hypomagnesemia. Minimal elevation in AST and ALT. Kidney function is normal. test was negative. Viral screen was unremarkable. CT scan was independently interpreted by me as negative for bowel obstruction, acute appendicitis or significant hepatobiliary disease at this time. Patient was managed further with IV droperidol as well as phenobarbital load. Further IV fluid resuscitation was ordered. Patient has moderate to severe alcohol withdrawal syndrome at this time. She has multiple electrolyte derangements and acute dehydration. Plan to admit to the hospitalist team. Ultimately, the decision was made to admit the patient for complicated alcohol withdrawal. I discussed the case with the hospitalist service via telephone/TigerText and they are agreeable to admit the patient to their services. Based on the above, including the patient's age, coexisting illnesses, labs, imaging, and exam findings the decision to treat as an inpatient. I discussed the patient with the hospitalist team who recommended admission to their services. They received the medications, treatments, interventions indicated above and their condition remained stable. I discussed my findings with the patient and their family and they understand and agree with the treatment plan. All patient / family questions were answered to their satisfaction. Consults/Care Managements Discussions: Per [facility] ER treatment provided: See above Procedures:none Critical Care: None The chart was completed utilizing [employer] Speech voice recognition software. Grammatical errors, random word insertions, pronoun errors, and incomplete sentences are an occasional consequence of this system due to software limitations, ambient noise, and hardware issues. Any formal questions or concerns about the content, text, or information contained within the body of this dictation should be directly addressed to the physician for clarification. Past Med/Surg History Problem List (Updated 03/21/25 @ 00:38 by Boni Rod DO) Abnormal transaminases (Acute) Acute hypokalemia (Acute) Acidosis, lactic (Acute) Acute dehydration (Acute) Hypomagnesemia (Acute) High anion gap metabolic acidosis (Acute) Alcohol withdrawal (Acute) Nausea & vomiting Alcohol withdrawal (Acute) Hypophosphatemia Metabolic acidosis (Acute) Transaminitis (Acute) High serum osmolar gap (Acute) Increased anion gap metabolic acidosis (Acute) Intractable nausea and vomiting (Acute) Nausea & vomiting Thrombocytopenia (Acute) Neutropenia (Acute) Acute alcoholic gastritis (Acute) Epigastric pain Bipolar disorder Acute alcoholic pancreatitis Anxiety Marijuana use (Acute) Unspecified mood [affective] disorder Alcohol use disorder, severe, dependence Hypomagnesemia Hypokalemia Intractable vomiting (Acute) Epigastric abdominal pain (Acute) High anion gap metabolic acidosis (Acute) Alcohol withdrawal (Acute) Suicidal ideation (Acute) Abdominal pain (Acute) Alcohol intoxication (Acute) Mood disorder (Acute) Cellulitis of face (Acute) Pancreatitis (Acute) DVT prophylaxis Seizure disorder Suicide and self-inflicted injury Alcohol abuse (Acute) Facial cellulitis History of orthopedic surgery Polysubstance abuse Mood disorder (Chronic) Medical History Alcohol abuse Closed fracture of right olecranon process Closed fracture of left distal radius Tobacco use disorder Mood disorder Recurrent pancreatitis Surgical History History of D&C x 3 Family History Other No significant family history Social History Smoking Status: Never smoker Tobacco Type: Cigarettes Second Hand Exposure: No; Do You Dip or Chew Tobacco: No; Hx Alcohol Use: Yes Alcohol type: hard liquor Hx Substance Use: Yes Prescribed Medications: Marijuana Last Used Substance: Hours (ago) Preferred Language: [place] Citizen Communication Ability: Effective Visual Impairment: No Limitations Political Analyst Required: No Beliefs That Will Affect Care: None marital status: Single marital status details: Jason (43) [phone] Current Living Situation: Significant Other Current Living Situation Comment: lives with FOB, no pets. current occupational status: unemployed Feels Safe at Home: Yes Assistive Devices: None Allergies Allergies Allergy/AdvReac Type Severity Reaction Status Date / Time lamotrigine [From Lamictal] Allergy Mild Rash Verified 03/20/25 23:55 amairani Allergy Mild GUMS SWELL Verified 03/20/25 23:55 mushroom Allergy Mild GUMS SWELL Verified 03/20/25 23:55 ketorolac [From Toradol] AdvReac Mild Irritable Verified 03/20/25 23:55 Home Meds Home Medications Medication Instructions Recorded Confirmed albuterol sulfate 90 mcg/actuation 2 puff inhalation Q4 PRN cough or 11/07/24 03/20/25 aerosol inhaler wheeze ferrous sulfate 325 mg (65 mg 325 mg PO QAM 11/07/24 03/20/25 iron) tablet bupropion HCl 200 mg tablet,12 hr 250 mg PO QAM 12/23/24 12/26/24 sustained-release cetirizine 10 mg tablet 10 mg PO DAILY PRN Allergy Symptoms 12/23/24 03/20/25 norethindrone (contraceptive) 0.35 0.35 mg PO QAM 12/23/24 03/21/25 mg tablet gabapentin 100 mg capsule 200 mg PO QID 12/26/24 03/20/25 bupropion HCl 200 mg tablet,12 hr 200 mg PO QAM 03/21/25 03/21/25 sustained-release Results & Data (ED) Vital Signs Vital Signs - 24 hr 03/20/25 18:57 03/20/25 19:11 03/20/25 19:19 Temperature 36.8 C Temperature Source Oral Pulse Rate 94 H 119 H Pulse Rate [Apical] Respiratory Rate 16 Respiratory Effort / Characteristics Non-Labored Respiratory Depth Normal Respiratory Pattern Blood Pressure 119/77 Blood Pressure [Left Arm] Blood Pressure Mean 91 Blood Pressure Mean [Left Arm] Blood Pressure Position [Left Arm] Pulse Oximetry 97 98 Oxygen Delivery Method Room Air Room Air Sepsis Recent Fever Within 48 Hours No Sepsis New/Unexplained Change in Mental Status No Sepsis Action Taken by Nursing No Action Required 03/20/25 19:25 03/20/25 21:30 03/20/25 22:35 Temperature Temperature Source Pulse Rate 98 H Pulse Rate [Apical] 118 H 121 H Respiratory Rate 20 22 20 Respiratory Effort / Characteristics Non-Labored Spontaneous Non-Labored Spontaneous Respiratory Depth Normal Normal Respiratory Pattern Regular Regular Blood Pressure 127/85 Blood Pressure [Left Arm] 110/86 126/84 Blood Pressure Mean Blood Pressure Mean [Left Arm] 94 98 Blood Pressure Position [Left Arm] Lying Semi-fowlers Pulse Oximetry 98 97 Oxygen Delivery Method Room Air Room Air Sepsis Recent Fever Within 48 Hours Sepsis New/Unexplained Change in Mental Status Sepsis Action Taken by Nursing 03/20/25 23:35 03/20/25 23:50 Temperature Temperature Source Pulse Rate 107 H Pulse Rate [Apical] 104 H Respiratory Rate 22 Respiratory Effort / Characteristics Non-Labored Spontaneous Respiratory Depth Normal Respiratory Pattern Regular Blood Pressure Blood Pressure [Left Arm] 125/92 Blood Pressure Mean Blood Pressure Mean [Left Arm] 103 Blood Pressure Position [Left Arm] Semi-fowlers Pulse Oximetry 97 Oxygen Delivery Method Room Air Sepsis Recent Fever Within 48 Hours Sepsis New/Unexplained Change in Mental Status Sepsis Action Taken by Nursing Laboratory Data 03/20/25 19:13 03/20/25 19:13 Lab Results 1103/20/25 03/20/25 Range/Units 19:13 19:28 20:03 WBC 7.61 (4.8-10.8) K/ul RBC 4.56 (4.20-5.40) M/uL Hgb 15.7 (12.0-16.0) g/dl Hct 42.4 (37.0-47.0) % MCV 93.0 (80.0-100.0) fL MCH 34.4 H (25.0-34.0) pg MCHC 37.0 H (32.0-36.0) g/dL RDW Std Deviation 43.1 (36.4-46.3) fL RDW Coeff of Nayana 12.5 (11.5-14.5) % Plt Count 162 (130-400) K/uL MPV 8.7 L (9.4-12.4) fL Neutrophils % (Manual) 64 % Lymphocytes % (Manual) 29 % Monocytes % (Manual) 6 % Basophils % (Manual) 1 % Neutrophils # (Manual) 4.87 (1.40-6.50) K/uL Total Absolute Neuts 4.87 (1.4-6.5) K/uL Lymphocytes # (Manual) 2.21 (1.2-3.4) K/uL Total Abs Lymphocytes 2.21 (1.2-3.4) K/uL Monocytes # (Manual) 0.46 (0.11-0.59) K/uL Basophils # (Manual) 0.08 (0-0.2) K/uL RBC Morphology Unremarkable Sodium 137 (136-145) mmol/L Potassium 3.2 L (3.5-5.1) mmol/L Chloride 96 L (98-107) mmol/L Carbon Dioxide 13 L (21-32) mmol/L Anion Gap 28 H (3-11) BUN 6 (6-23) mg/dl Creatinine 0.68 (0.6-1.2) mg/dl Est Cr Clr Drug Dosing 106.9 ml/min eGFR 118.60 BUN/Creatinine Ratio 8.8 L (10-20) Glucose 98 (70-99(Fasting)) mg/dl Lactate 4.8 H* (0.4-2.0) mmol/L Calcium 9.9 (8.6-10.3) mg/dl Magnesium 1.2 L (1.7-2.4) mg/dl Total Bilirubin 1.1 H (0.2-1.0) mg/dl AST 78 H (13-39) U/L ALT 66 H (7-52) U/L Alkaline Phosphatase 63 (34-104) U/L Total Protein 8.3 (6.0-8.3) gm/dl Albumin 4.7 (3.4-5.0) gm/dl Globulin 3.6 (2.5-4.0) gm/dl Albumin/Globulin Ratio 1.3 (0.9-2) Lipase 8 L (11-82) U/L Procalcitonin 0.02 (0-0.5) ng/ml HCG, Quant < 1 mIU/ml SARS-CoV-2 (PCR) NEGATIVE (Negative) Influenza Type A (PCR) Negative (Neg) Influenza Type B (PCR) Negative (Neg) RSV (RT-PCR) Negative (Neg) 03/20/25 Range/Units 22:21 WBC (4.8-10.8) K/ul RBC (4.20-5.40) M/uL Hgb (12.0-16.0) g/dl Hct (37.0-47.0) % MCV (80.0-100.0) fL MCH (25.0-34.0) pg MCHC (32.0-36.0) g/dL RDW Std Deviation (36.4-46.3) fL RDW Coeff of Nayana (11.5-14.5) % Plt Count (130-400) K/uL MPV (9.4-12.4) fL Neutrophils % (Manual) % Lymphocytes % (Manual) % Monocytes % (Manual) % Basophils % (Manual) % Neutrophils # (Manual) (1.40-6.50) K/uL Total Absolute Neuts (1.4-6.5) K/uL Lymphocytes # (Manual) (1.2-3.4) K/uL Total Abs Lymphocytes (1.2-3.4) K/uL Monocytes # (Manual) (0.11-0.59) K/uL Basophils # (Manual) (0-0.2) K/uL RBC Morphology Sodium (136-145) mmol/L Potassium (3.5-5.1) mmol/L Chloride (98-107) mmol/L Carbon Dioxide (21-32) mmol/L Anion Gap (3-11) BUN (6-23) mg/dl Creatinine (0.6-1.2) mg/dl Est Cr Clr Drug Dosing ml/min eGFR BUN/Creatinine Ratio (10-20) Glucose (70-99(Fasting)) mg/dl Lactate 1.5 (0.4-2.0) mmol/L Calcium (8.6-10.3) mg/dl Magnesium (1.7-2.4) mg/dl Total Bilirubin (0.2-1.0) mg/dl AST (13-39) U/L ALT (7-52) U/L Alkaline Phosphatase (34-104) U/L Total Protein (6.0-8.3) gm/dl Albumin (3.4-5.0) gm/dl Globulin (2.5-4.0) gm/dl Albumin/Globulin Ratio (0.9-2) Lipase (11-82) U/L Procalcitonin (0-0.5) ng/ml HCG, Quant mIU/ml SARS-CoV-2 (PCR) (Negative) Influenza Type A (PCR) (Neg) Influenza Type B (PCR) (Neg) RSV (RT-PCR) (Neg) Administered Medications Discontinued Medications Capsaicin (Capsaicin Cr 0.075% 60 Gm Tube) 1 appln EXT ONE ONE Stop: 03/20/25 19:08 Last Admin: 03/20/25 20:04 Dose: Not Given Documented By: EMB Droperidol (Droperidol 5 Mg/2 Ml Vial) 1.25 mg IV ONE STA Stop: 03/20/25 22:21 Last Admin: 03/20/25 22:27 Dose: 1.25 mg Documented By: EMB Parenteral Electrolytes (Plasma-Lyte A Ph 7.4) 1,000 mls @ 999 mls/hr IV .Q1H1M ONE Stop: 03/20/25 20:31 Last Infusion: 03/20/25 20:04 Dose: Infused Documented By: Admin: 03/20/25 19:36 Dose: 999 mls/hr Documented By: EMB Parenteral Electrolytes (Plasma-Lyte A Ph 7.4) 1,000 mls @ 999 mls/hr IV .Q1H1M ONE Stop: 03/20/25 23:31 Last Infusion: 03/20/25 23:50 Dose: Infused Documented By: Admin: 03/20/25 22:31 Dose: 999 mls/hr Documented By: VU Ioversol (Optiray 320 100ml) 90 ml IV ONCE ONE Stop: 03/20/25 20:23 Last Admin: 03/20/25 20:22 Dose: 90 ml Documented By: BENNIE Ketorolac Tromethamine (Ketorolac Tromethamine 15 Mg/Ml Vial) 10 mg IV NOW STA Stop: 03/20/25 19:07 Last Admin: 03/20/25 19:20 Dose: 10 mg Documented By: VU Lorazepam (Lorazepam 1 Mg/1 Ml Syr Ed Inj Use) 1 mg IV ONE STA Stop: 03/20/25 19:07 Last Admin: 03/20/25 19:17 Dose: 1 mg Documented By: VU Lorazepam (Lorazepam 1 Mg/1 Ml Syr Ed Inj Use) 2 mg IV ONE STA Stop: 03/20/25 20:35 Last Admin: 03/20/25 20:39 Dose: 2 mg Documented By: VU Ondansetron HCl (Ondansetron Inj 2 Mg/Ml 2 Ml Vial) 4 mg IV NOW STA Stop: 03/20/25 19:07 Last Admin: 03/20/25 19:19 Dose: 4 mg Documented By: VU Phenobarbital Sodium (Phenobarbital Sodium 65 Mg/Ml Vial) 130 mg IV NOW STA Stop: 03/20/25 22:22 Last Admin: 03/20/25 22:35 Dose: 130 mg Documented By: VU Potassium Chloride (Potassium Chloride Crtab 20 Meq Tabcr) 40 meq PO NOW STA Stop: 03/20/25 21:05 Last Admin: 03/20/25 22:18 Dose: 40 meq Documented By: VU Imaging Data Radiologist's Impression: Abdomen/Pelvis CT 03/20/25 19:06 Exam(s): CT ABDOMEN + PELVIS With Contrast IV Amt: 90 cc opti 320 EXAM: CT Abdomen and Pelvis With Intravenous Contrast CLINICAL HISTORY: eval for appendicitis. TECHNIQUE: Axial computed tomography images of the abdomen and pelvis with intravenous contrast. CTDI is 10.24 mGy and DLP is 501.89 mGy-cm. Automated exposure control was utilized for the study. A dose lowering technique was utilized adhering to the principles of ALARA. CONTRAST: Patient received 90 cc opti 320 of IV contrast COMPARISON: CT abdomen and pelvis with contrast dated 12/23/2024 FINDINGS: Lung bases: Unremarkable. No mass. No consolidation. ABDOMEN: Liver: Hepatomegaly with evidence of hepatic steatosis, similar. Gallbladder and bile ducts: Unremarkable. No calcified stones. No ductal dilation. Pancreas: Unremarkable. No mass. No ductal dilation. Spleen: Unremarkable. No splenomegaly. Adrenals: Unremarkable. No mass. Kidneys and ureters: Unremarkable. No solid mass. No hydronephrosis. Stomach and bowel: The stomach is only mildly distended with fluid and gas. No gastric mucosal thickening. No evidence for focal high-grade bowel obstruction. No definite asymmetric bowel mucosal abnormality. Moderate stool burden. No diverticulitis. PELVIS: Appendix: A normal-caliber appendix, measuring only 4.7 mm on coronal reformatted imaging, is identified extending medially from the cecum in the right lower quadrant. No evidence for periappendiceal inflammatory changes to suggest acute appendicitis. Bladder: Unremarkable. No mass. Reproductive: Questionable subcentimeter follicular changes involving the right adnexa/ovary. The anteverted uterus and left ovary are unremarkable. ABDOMEN and PELVIS: Intraperitoneal space: Trace free fluid in the dependent left pelvic cul-de-sac. No loculation. Bones/joints: No acute fracture. No dislocation. Soft tissues: Subtle mesenteric fat stranding noted in the central pelvis, similar to the previous examination consistent with chronic changes. Vasculature: Unremarkable. No abdominal aortic aneurysm. Lymph nodes: Unremarkable. No enlarged lymph nodes. IMPRESSION: 1. A normal-caliber appendix, measuring only 4.7 mm on coronal reformatted imaging, is identified extending medially from the cecum in the right lower quadrant. No evidence for periappendiceal inflammatory changes to suggest acute appendicitis. 2. Hepatomegaly with evidence of hepatic steatosis, similar. 3. No evidence for focal high-grade bowel obstruction. No definite asymmetric bowel mucosal abnormality. Moderate stool burden. No diverticulitis. No pneumoperitoneum. 4. Questionable subcentimeter follicular changes involving the right adnexa/ovary. Trace free fluid in the dependent left pelvic cul-de-sac. This is presumed incidental/physiologic. Electronically signed by: Chase Brown MD 03/20/25 22:00 PM Discharge Plan Visit Data Chief Complaint: Vomiting Stated Complaint: THROWIN UP ED Provider: Boni Rod Discharge Problem: Alcohol withdrawal, High anion gap metabolic acidosis, Hypomagnesemia, Acute dehydration, Acidosis, lactic, Acute hypokalemia, Abnormal transaminases Patient Disposition: Admitted As Inpatient Condition: Serious Forms Stand Alone Forms: My [facility] Prescriptions Prescriptions: No Action cetirizine 10 mg tablet 10 mg PO DAILY PRN (Reason: Allergy Symptoms) norethindrone (contraceptive) 0.35 mg tablet 0.35 mg PO QAM bupropion HCl 200 mg tablet sustained-release 12 hr 250 mg PO QAM gabapentin 100 mg capsule 200 mg PO QID albuterol sulfate 90 mcg/actuation HFA aerosol inhaler 2 puff INHALATION Q4 PRN (Reason: cough or wheeze) ferrous sulfate 325 mg (65 mg iron) Tablet 325 mg PO QAM bupropion HCl 200 mg tablet sustained-release 12 hr 200 mg PO QAM Referrals Referrals: William Mullins MD [Primary Care Provider] -
[2025-03-20] MEDS: PLASMA-LYTE A 1,000 ML IV ONE ×2 (19:36→22:31)
[2025-03-20 19:57] LABS: Albumin Level 4.7 gm/dl (3.4-5.0); Anion Gap 28.0 (3-11); Bilirubin,Total 1.1 mg/dl (0.2-1.0); Calcium 9.9 mg/dl (8.6-10.3); Carbon Dioxide 13.0 mmol/L (21-32); Chloride 96.0 mmol/L (98-107); Potassium 3.2 mmol/L (3.5-5.1); Sodium 137.0 mmol/L (136-145)
[2025-03-20 20:04] LABS: Alanine Aminotransferase 66.0 U/L (7-52); Albumin Globulin Ratio 1.3 (0.9-2); Alkaline Phosphatase 63.0 U/L (34-104); Blood Urea Nitrogen 6.0 mg/dl (6-23); Creatinine Clr Calc Pharmacy 106.9 ml/min; Globulin 3.6 gm/dl (2.5-4.0); Glucose 98.0 mg/dl (70-99(Fasting)); Lipase 8.0 U/L (11-82); Total Protein 8.3 gm/dl (6.0-8.3)
[2025-03-20] MEDS: CAPSAICIN CR 0.075% 60 GM TUBE EXT ONE (20:04)
[2025-03-20 20:17] LABS: Hematocrit (blood only) 42.4 % (37.0-47.0); Hemoglobin 15.7 g/dl (12.0-16.0); Mean Corpuscular Hemoglobin 34.4 pg (25.0-34.0); Mean Corpuscular Volume 93.0 fL (80.0-100.0); Platelet Count 162 K/uL (130-400); RDW Standard Deviation 43.1 fL (36.4-46.3); Red Blood Count 4.56 M/uL (4.20-5.40); White Blood Count 7.61 K/ul (4.8-10.8)
[2025-03-20 20:17] LABS: Influenza A virus by PCR Negative (Neg); Influenza B virus by PCR Negative (Neg); SARS CoV2 RNA(COVID-19) Ceph NEGATIVE (Negative)
[2025-03-20 20:18] LABS: ALC (manual) 2.21 K/uL (1.2-3.4); ANC (manual) 4.87 K/uL (1.4-6.5); RBC Morphology Unremarkable
[2025-03-20] MEDS: OPTIRAY 320 100ml IV ONE (20:22)
--- NOTE | 2025-03-20 22:00 | CT Scan Report ---
Exam(s): CT ABDOMEN + PELVIS With Contrast IV Amt: 90 cc opti 320 EXAM: CT Abdomen and Pelvis With Intravenous Contrast CLINICAL HISTORY: eval for appendicitis. TECHNIQUE: Axial computed tomography images of the abdomen and pelvis with intravenous contrast. CTDI is 10.24 mGy and DLP is 501.89 mGy-cm. Automated exposure control was utilized for the study. A dose lowering technique was utilized adhering to the principles of ALARA. CONTRAST: Patient received 90 cc opti 320 of IV contrast COMPARISON: CT abdomen and pelvis with contrast dated 12/23/2024 FINDINGS: Lung bases: Unremarkable. No mass. No consolidation. ABDOMEN: Liver: Hepatomegaly with evidence of hepatic steatosis, similar. Gallbladder and bile ducts: Unremarkable. No calcified stones. No ductal dilation. Pancreas: Unremarkable. No mass. No ductal dilation. Spleen: Unremarkable. No splenomegaly. Adrenals: Unremarkable. No mass. Kidneys and ureters: Unremarkable. No solid mass. No hydronephrosis. Stomach and bowel: The stomach is only mildly distended with fluid and gas. No gastric mucosal thickening. No evidence for focal high-grade bowel obstruction. No definite asymmetric bowel mucosal abnormality. Moderate stool burden. No diverticulitis. PELVIS: Appendix: A normal-caliber appendix, measuring only 4.7 mm on coronal reformatted imaging, is identified extending medially from the cecum in the right lower quadrant. No evidence for periappendiceal inflammatory changes to suggest acute appendicitis. Bladder: Unremarkable. No mass. Reproductive: Questionable subcentimeter follicular changes involving the right adnexa/ovary. The anteverted uterus and left ovary are unremarkable. ABDOMEN and PELVIS: Intraperitoneal space: Trace free fluid in the dependent left pelvic cul-de-sac. No loculation. Bones/joints: No acute fracture. No dislocation. Soft tissues: Subtle mesenteric fat stranding noted in the central pelvis, similar to the previous examination consistent with chronic changes. Vasculature: Unremarkable. No abdominal aortic aneurysm. Lymph nodes: Unremarkable. No enlarged lymph nodes. IMPRESSION: 1. A normal-caliber appendix, measuring only 4.7 mm on coronal reformatted imaging, is identified extending medially from the cecum in the right lower quadrant. No evidence for periappendiceal inflammatory changes to suggest acute appendicitis. 2. Hepatomegaly with evidence of hepatic steatosis, similar. 3. No evidence for focal high-grade bowel obstruction. No definite asymmetric bowel mucosal abnormality. Moderate stool burden. No diverticulitis. No pneumoperitoneum. 4. Questionable subcentimeter follicular changes involving the right adnexa/ovary. Trace free fluid in the dependent left pelvic cul-de-sac. This is presumed incidental/physiologic. Electronically signed by: Chase Brown MD 03/20/25 22:00 PM
[2025-03-20] MEDS: POTASSIUM CHLORIDE CRTAB 20 MEQ TABCR PO STA (22:18)
[2025-03-20] MEDS: DROPERIDOL 5 MG/2 ML VIAL IV STA (22:27)
[2025-03-20 22:59] LABS: Magnesium 1.2 mg/dl (1.7-2.4)
--- NOTE | 2025-03-21 00:30 | History & Physical Report ---
Date of Service March 21, 2025 Assessment & Plan (1) Nausea & vomiting: Plan: 30-year-old female with past medical history significant for bipolar disorder, history of pancreatitis, history of alcohol abuse, cannabis abuse presents with nausea vomiting and abdominal pain. Patient significant other?says her last alcohol drink was 1 AM last night. Since 3 AM she is having lot of nausea vomiting and abdominal pain which prompted her to come to the ER. In the ER patient received fluids and IV phenobarbital and Ativan for alcohol withdrawal. Currently drowsy but was arousable. Currently patient states still has some abdominal discomfort. Denies any chest pain or shortness of breath. No cough. No headache. No runny nose or sore throat. Patient states earlier felt tingliness in the hands and face but that got resolved. Normal bowel and bladder movements. Hemodynamics are okay. Nausea and vomiting Abdominal pain CT scan okay Lipase level okay Possible gastroenteritis Possible alcohol gastritis Possible cannabis hyperemesis syndrome Clears, IV fluids, IV Pepcid, IV antiemetics as needed, pain meds as needed Close monitor Alcoholism History of alcoholism received phenobarbital and Ativan in the ER Will continue with Librium protocol and Ativan as needed IV thiamine and folic acid and multivitamins Close monitor High anion gap metabolic acidosis Initial lactic acid 4.8 and repeat is 1.5 Procalcitonin okay Mostly from alcoholism and dehydration and starvation ketosis Getting fluids Will follow repeat labs Hypomagnesia and hypokalemia Replace Will follow repeat labs Mild elevated LFTs Mostly from alcoholism Will follow repeat labs Depression On Wellbutrin DVT prophylaxis Lovenox Disposition Telemetry Full code. History of Present Illness Chief Complaint: Nausea vomiting and abdominal pain Primary Care Provider: William Mullins MD 30-year-old female with past medical history significant for bipolar disorder, history of pancreatitis, history of alcohol abuse, cannabis abuse presents with nausea vomiting and abdominal pain. Patient significant other?says her last alcohol drink was 1 AM last night. Since 3 AM she is having lot of nausea vomiting and abdominal pain which prompted her to come to the ER. In the ER patient received fluids and IV phenobarbital and Ativan for alcohol withdrawal. Currently drowsy but was arousable. Currently patient states still has some abdominal discomfort. Denies any chest pain or shortness of breath. No cough. No headache. No runny nose or sore throat. Patient states earlier felt tingliness in the hands and face but that got resolved. Normal bowel and bladder movements. Hemodynamics are okay. Past medical history. As mentioned above. Past surgical history. induced by D&C. Social history. Quit smoking 2019. Drinking alcohol 6 shots of whiskey daily. Smokes marijuana daily. Family history. Father history of alcoholism. Mother history of alcoholism. Maternal uncle history of alcoholism. Bipolar disorder. Allergies Allergy/AdvReac Type Severity Reaction Status Date / Time lamotrigine [From Lamictal] Allergy Mild Rash Verified 03/20/25 23:55 amairani Allergy Mild GUMS SWELL Verified 03/20/25 23:55 mushroom Allergy Mild GUMS SWELL Verified 03/20/25 23:55 ketorolac [From Toradol] AdvReac Mild Irritable Verified 03/20/25 23:55 Home Medications Medication Instructions Recorded Confirmed Type albuterol sulfate 90 mcg/actuation 2 puff inhalation Q4 PRN cough or 11/07/24 03/20/25 History aerosol inhaler wheeze ferrous sulfate 325 mg (65 mg 325 mg PO QAM 11/07/24 03/20/25 History iron) tablet cetirizine 10 mg tablet 10 mg PO DAILY PRN Allergy Symptoms 12/23/24 03/20/25 History gabapentin 100 mg capsule 200 mg PO QID 12/26/24 03/20/25 History bupropion HCl 200 mg tablet,12 hr 200 mg PO QAM 03/21/25 03/21/25 History sustained-release Past Med/Surg History Problem List (Updated 03/21/25 @ 00:38 by Boni Rod DO) Abnormal transaminases (Acute) Acute hypokalemia (Acute) Acidosis, lactic (Acute) Acute dehydration (Acute) Hypomagnesemia (Acute) High anion gap metabolic acidosis (Acute) Alcohol withdrawal (Acute) Nausea & vomiting Alcohol withdrawal (Acute) Hypophosphatemia Metabolic acidosis (Acute) Transaminitis (Acute) High serum osmolar gap (Acute) Increased anion gap metabolic acidosis (Acute) Intractable nausea and vomiting (Acute) Nausea & vomiting Thrombocytopenia (Acute) Neutropenia (Acute) Acute alcoholic gastritis (Acute) Epigastric pain Bipolar disorder Acute alcoholic pancreatitis Anxiety Marijuana use (Acute) Unspecified mood [affective] disorder Alcohol use disorder, severe, dependence Hypomagnesemia Hypokalemia Intractable vomiting (Acute) Epigastric abdominal pain (Acute) High anion gap metabolic acidosis (Acute) Alcohol withdrawal (Acute) Suicidal ideation (Acute) Abdominal pain (Acute) Alcohol intoxication (Acute) Mood disorder (Acute) Cellulitis of face (Acute) Pancreatitis (Acute) DVT prophylaxis Seizure disorder Suicide and self-inflicted injury Alcohol abuse (Acute) Facial cellulitis History of orthopedic surgery Polysubstance abuse Mood disorder (Chronic) Medical History Alcohol abuse Closed fracture of right olecranon process Closed fracture of left distal radius Tobacco use disorder Mood disorder Recurrent pancreatitis Surgical History History of D&C x 3 Family History Other No significant family history Social History Smoking Status: Former smoker Tobacco Type: Cigarettes Second Hand Exposure: No; Do You Dip or Chew Tobacco: No; Hx Alcohol Use: Yes Alcohol type: hard liquor Hx Substance Use: Yes Prescribed Medications: Marijuana Last Used Substance: Hours (ago) Preferred Language: Maldivian Communication Ability: Effective Visual Impairment: No Limitations Gut Carrier Required: No Beliefs That Will Affect Care: None marital status: Single marital status details: Jason (43) [phone] Current Living Situation: Significant Other Current Living Situation Comment: lives with FOB, no pets. current occupational status: unemployed Feels Safe at Home: Yes Assistive Devices: None Review of Systems Review of Systems: All systems reviewed & are unremarkable except as noted in HPI & below Physical Exam Physical Exam: General-Drowsy Head- atraumatic Eyes- PERRL. ENT- oropharynx clear Neck- supple, no JVD. Lungs- clear to auscultation no wheezing or crackles. Heart- regular rhythm; no murmur, no gallop. Abdomen- normal bowel sounds, soft, mild diffuse discomfort, no distension Extremities- no pretibial edema, no erythema seen. Neuro- Drowsy PERRL, no facial palsy; no dysarthria; moves extremities Results & Data Results & Data Vital Signs (Past 12 Hours) Vital Signs Temp Pulse Pulse Resp BP BP Pulse Ox 03/20/25 23:50 104 H 22 125/92 97 03/20/25 23:35 107 H 03/20/25 22:35 98 H 20 127/85 03/20/25 21:30 121 H 22 126/84 97 03/20/25 19:25 118 H 20 110/86 98 03/20/25 19:19 119 H 03/20/25 19:11 98 03/20/25 18:57 36.8 C 94 H 16 119/77 97 O2 Del Method 03/20/25 23:50 Room Air 03/20/25 23:35 03/20/25 22:35 03/20/25 21:30 Room Air 03/20/25 19:25 Room Air 03/20/25 19:19 03/20/25 19:11 Room Air 03/20/25 18:57 Room Air Diagnostic Findings Laboratory Results WBC 7.61 K/ul (4.8-10.8) 03/20/25 19:13 RBC 4.56 M/uL (4.20-5.40) 03/20/25 19:13 Hgb 15.7 g/dl (12.0-16.0) 03/20/25 19:13 Hct 42.4 % (37.0-47.0) 03/20/25 19:13 MCV 93.0 fL (80.0-100.0) 03/20/25 19:13 MCH 34.4 pg (25.0-34.0) H 03/20/25 19:13 MCHC 37.0 g/dL (32.0-36.0) H 03/20/25 19:13 RDW Std Deviation 43.1 fL (36.4-46.3) 03/20/25 19:13 RDW Coeff of Nayana 12.5 % (11.5-14.5) 03/20/25 19:13 Plt Count 162 K/uL (130-400) 03/20/25 19:13 MPV 8.7 fL (9.4-12.4) L 03/20/25 19:13 Neutrophils % (Manual) 64 % 03/20/25 19:13 Lymphocytes % (Manual) 29 % 03/20/25 19:13 Monocytes % (Manual) 6 % 03/20/25 19:13 Basophils % (Manual) 1 % 03/20/25 19:13 Neutrophils # (Manual) 4.87 K/uL (1.40-6.50) 03/20/25 19:13 Total Absolute Neuts 4.87 K/uL (1.4-6.5) 03/20/25 19:13 Lymphocytes # (Manual) 2.21 K/uL (1.2-3.4) 03/20/25 19:13 Total Abs Lymphocytes 2.21 K/uL (1.2-3.4) 03/20/25 19:13 Monocytes # (Manual) 0.46 K/uL (0.11-0.59) 03/20/25 19:13 Basophils # (Manual) 0.08 K/uL (0-0.2) 03/20/25 19:13 RBC Morphology Unremarkable 03/20/25 19:13 Sodium 137 mmol/L (136-145) 03/20/25 19:13 Potassium 3.2 mmol/L (3.5-5.1) L 03/20/25 19:13 Chloride 96 mmol/L (98-107) L 03/20/25 19:13 Carbon Dioxide 13 mmol/L (21-32) L 03/20/25 19:13 Anion Gap 28 (3-11) H 03/20/25 19:13 BUN 6 mg/dl (6-23) 03/20/25 19:13 Creatinine 0.68 mg/dl (0.6-1.2) 03/20/25 19:13 Est Cr Clr Drug Dosing 106.9 ml/min 03/20/25 19:13 eGFR 118.60 03/20/25 19:13 BUN/Creatinine Ratio 8.8 (10-20) L 03/20/25 19:13 Glucose 98 mg/dl (70-99(Fasting)) 03/20/25 19:13 Lactate 1.5 mmol/L (0.4-2.0) 03/20/25 22:21 Calcium 9.9 mg/dl (8.6-10.3) 03/20/25 19:13 Magnesium 1.2 mg/dl (1.7-2.4) L 03/20/25 19:13 Total Bilirubin 1.1 mg/dl (0.2-1.0) H 03/20/25 19:13 AST 78 U/L (13-39) H 03/20/25 19:13 ALT 66 U/L (7-52) H 03/20/25 19:13 Alkaline Phosphatase 63 U/L (34-104) 03/20/25 19:13 Total Protein 8.3 gm/dl (6.0-8.3) 03/20/25 19:13 Albumin 4.7 gm/dl (3.4-5.0) 03/20/25 19:13 Globulin 3.6 gm/dl (2.5-4.0) 03/20/25 19:13 Albumin/Globulin Ratio 1.3 (0.9-2) 03/20/25 19:13 Lipase 8 U/L (11-82) L 03/20/25 19:13 Procalcitonin 0.02 ng/ml (0-0.5) 03/20/25 19:13 HCG, Quant < 1 mIU/ml 03/20/25 19:13 SARS-CoV-2 (PCR) NEGATIVE (Negative) 03/20/25 19:28 Influenza Type A (PCR) Negative (Neg) 03/20/25 19:28 Influenza Type B (PCR) Negative (Neg) 03/20/25 19:28 RSV (RT-PCR) Negative (Neg) 03/20/25 19:28 Impressions Abdomen/Pelvis CT 03/20/25 19:06 Exam(s): CT ABDOMEN + PELVIS With Contrast IV Amt: 90 cc opti 320 EXAM: CT Abdomen and Pelvis With Intravenous Contrast CLINICAL HISTORY: eval for appendicitis. TECHNIQUE: Axial computed tomography images of the abdomen and pelvis with intravenous contrast. CTDI is 10.24 mGy and DLP is 501.89 mGy-cm. Automated exposure control was utilized for the study. A dose lowering technique was utilized adhering to the principles of ALARA. CONTRAST: Patient received 90 cc opti 320 of IV contrast COMPARISON: CT abdomen and pelvis with contrast dated 12/23/2024 FINDINGS: Lung bases: Unremarkable. No mass. No consolidation. ABDOMEN: Liver: Hepatomegaly with evidence of hepatic steatosis, similar. Gallbladder and bile ducts: Unremarkable. No calcified stones. No ductal dilation. Pancreas: Unremarkable. No mass. No ductal dilation. Spleen: Unremarkable. No splenomegaly. Adrenals: Unremarkable. No mass. Kidneys and ureters: Unremarkable. No solid mass. No hydronephrosis. Stomach and bowel: The stomach is only mildly distended with fluid and gas. No gastric mucosal thickening. No evidence for focal high-grade bowel obstruction. No definite asymmetric bowel mucosal abnormality. Moderate stool burden. No diverticulitis. PELVIS: Appendix: A normal-caliber appendix, measuring only 4.7 mm on coronal reformatted imaging, is identified extending medially from the cecum in the right lower quadrant. No evidence for periappendiceal inflammatory changes to suggest acute appendicitis. Bladder: Unremarkable. No mass. Reproductive: Questionable subcentimeter follicular changes involving the right adnexa/ovary. The anteverted uterus and left ovary are unremarkable. ABDOMEN and PELVIS: Intraperitoneal space: Trace free fluid in the dependent left pelvic cul-de-sac. No loculation. Bones/joints: No acute fracture. No dislocation. Soft tissues: Subtle mesenteric fat stranding noted in the central pelvis, similar to the previous examination consistent with chronic changes. Vasculature: Unremarkable. No abdominal aortic aneurysm. Lymph nodes: Unremarkable. No enlarged lymph nodes. IMPRESSION: 1. A normal-caliber appendix, measuring only 4.7 mm on coronal reformatted imaging, is identified extending medially from the cecum in the right lower quadrant. No evidence for periappendiceal inflammatory changes to suggest acute appendicitis. 2. Hepatomegaly with evidence of hepatic steatosis, similar. 3. No evidence for focal high-grade bowel obstruction. No definite asymmetric bowel mucosal abnormality. Moderate stool burden. No diverticulitis. No pneumoperitoneum. 4. Questionable subcentimeter follicular changes involving the right adnexa/ovary. Trace free fluid in the dependent left pelvic cul-de-sac. This is presumed incidental/physiologic. Electronically signed by: Chase Brown MD 03/20/25 22:00 PM ECG Additional Comments: ECG. Sinus tachycardia rate of 123. Nonspecific T wave abnormalities in anterior leads. QTc 483. Code Status & VTE Plan VTE Prophylaxis Plan VTE Prophylaxis will be ordered: Yes
[2025-03-21] MEDS: MAGNESIUM SULFATE / D5W 1 GM/100 ML BAG IV SCH (00:38)
[2025-03-21] MEDS ORDERED: GABAPENTIN 1200MG ALCOHOL WITHDRAWAL LOAD PO STA (02:13)
[2025-03-21] MEDS ORDERED: chlordiazePOXIDE ALCOHOL WITHDRAWL 50MG PO STA (02:13)
[2025-03-21] MEDS ORDERED: ALBUTEROL HFA 8 GM INHALER INH PRN (02:13)
[2025-03-21] MEDS ORDERED: LORazepam Inj 3 MG in SYRINGE 1.5 ML IV PRN (02:13)
[2025-03-21] MEDS: D5W AND NSS 1,000 ML IV SCH (02:51)
[2025-03-21] MEDS: ONDANSETRON INJ 2 MG/ML 2 ML VIAL IV PRN (02:51)
[2025-03-21] MEDS: LORazepam Inj 1 MG in SYRINGE 0.5 ML IV PRN (03:15)
[2025-03-21 07:03] LABS: Alanine Aminotransferase 44.0 U/L (7-52); Albumin Level 3.9 gm/dl (3.4-5.0); Alkaline Phosphatase 45.0 U/L (34-104); Anion Gap 8.0 (3-11); Bilirubin,Total 1.1 mg/dl (0.2-1.0); Blood Urea Nitrogen 5.0 mg/dl (6-23); Calcium 8.3 mg/dl (8.6-10.3); Carbon Dioxide 25.0 mmol/L (21-32); Chloride 103.0 mmol/L (98-107); Creatinine Clr Calc Pharmacy 125.3 ml/min; Glucose 120.0 mg/dl (70-99(Fasting)); Magnesium 2.9 mg/dl (1.7-2.4); Potassium 3.3 mmol/L (3.5-5.1); Sodium 136.0 mmol/L (136-145); Total Protein 6.2 gm/dl (6.0-8.3)
[2025-03-21 07:13] LABS: Hematocrit (blood only) 35.0 % (37.0-47.0); Hemoglobin 12.5 g/dl (12.0-16.0); Immature Granulocytes # (auto) 0.01 K/uL (0.01-0.20); Immature Granulocytes % (auto) 0.2 %; Mean Corpuscular Hemoglobin 34.2 pg (25.0-34.0); Mean Corpuscular Volume 95.6 fL (80.0-100.0); Platelet Count 117 K/uL (130-400); RDW Standard Deviation 44.0 fL (36.4-46.3); Red Blood Count 3.66 M/uL (4.20-5.40); White Blood Count 5.09 K/ul (4.8-10.8)
[2025-03-21] MEDS: MoRPHine SULFATE 4 MG/ML 1 ML CARP\\VIAL IV PRN (07:49)
[2025-03-21] MEDS: FAMOTIDINE 20MG IV PUSH 20 MG/5 ML SYR IV SCH (07:54)
[2025-03-21] MEDS: GABAPENTIN 100 MG CAP PO SCH (08:43)
[2025-03-21] MEDS: THIAMINE HCL 100 MG in SYRINGE 9 ML IV SCH (08:43)
[2025-03-21] MEDS: MULTIVITAMIN TAB PO SCH (08:44)
[2025-03-21] MEDS: FERROUS SULFATE 325 MG TAB PO SCH (08:44)
[2025-03-21] MEDS: FOLIC ACID 1 MG TAB PO SCH (08:44)
[2025-03-21] MEDS: ENOXAPARIN INJ 40 MG/0.4 ML SYR SQ SCH (08:48)
--- NOTE | 2025-03-21 12:27 | Electrocardiogram Report ---
Test Reason : Blood Pressure : */* mmHG Vent. Rate : 123 BPM Atrial Rate : 123 BPM P-R Int : 128 ms QRS Dur : 70 ms QT Int : 338 ms P-R-T Axes : 68 78 49 degrees QTcB Int : 483 ms Sinus tachycardia Poor R wave progression, consider anterior [place] vs. lead placement vs. LVH Abnormal ECG When compared with ECG of 24-Dec-2024 16:47, Nonspecific T wave abnormality now evident in Anterior leads Confirmed by Akbar Khalil ([id number]) on 03/21/2025 12:27:06 PM Referred By: REFERRED SELF Confirmed By: Akbar Khalil
[2025-03-21] MEDS: LORazepam Inj 2 MG in SYRINGE 1 ML IV PRN (13:59)
[2025-03-21] MEDS ORDERED: OXYMETAZOLINE 0.05% 30 ML BTL PRN (17:55)
[2025-03-21 18:41] LABS: Appearance Urine Clear (Clear); Bacteria Urine Automated 1+ (None Seen); Cast Urine Automated 0-2 /lpf (0-2); Glucose Urine UA Negative (Negative); RBC Urine Automated 0-2 /hpf (0-2); WBC Urine Automated 0-5 /hpf (0-5)
[2025-03-21] MEDS: SODIUM CHLORIDE 0.65% NA SOLN 45 ML (OCEAN) SCH (20:22)
[2025-03-22 07:30] LABS: Hematocrit (blood only) 36.6 % (37.0-47.0); Hemoglobin 12.9 g/dl (12.0-16.0); Mean Corpuscular Hemoglobin 34.4 pg (25.0-34.0); Mean Corpuscular Volume 97.6 fL (80.0-100.0); Platelet Count 106 K/uL (130-400); RDW Standard Deviation 45.2 fL (36.4-46.3); Red Blood Count 3.75 M/uL (4.20-5.40); White Blood Count 3.89 K/ul (4.8-10.8)
[2025-03-22 07:45] LABS: Anion Gap 8.0 (3-11); Blood Urea Nitrogen 3.0 mg/dl (6-23); Calcium 8.7 mg/dl (8.6-10.3); Carbon Dioxide 21.0 mmol/L (21-32); Chloride 109.0 mmol/L (98-107); Creatinine Clr Calc Pharmacy 125.3 ml/min; Glucose 100.0 mg/dl (70-99(Fasting)); Potassium 3.8 mmol/L (3.5-5.1); Sodium 138.0 mmol/L (136-145)
[2025-03-22 09:31] LABS: Magnesium 1.7 mg/dl (1.7-2.4)
[2025-03-22] MEDS: CETIRIZINE HCL 10 MG TABLET PO PRN (09:40)
[2025-03-22] MEDS: CYANOCOBALAMIN (B-12) 500 MCG TABLET PO SCH (09:41)
[2025-03-22] MEDS: MAGNESIUM SULFATE / D5W 1 GM/100 ML BAG IV ONE (11:42)
--- NOTE | 2025-03-22 15:21 | Hospitalist Progress Note ---
Date of Service March 22, 2025 Assessment & Plan (1) Nausea & vomiting: Plan: 30-year-old female with past medical history significant for bipolar disorder, history of pancreatitis, history of alcohol abuse, cannabis abuse presents with nausea vomiting and abdominal pain. Patient significant other?says her last alcohol drink was 1 AM last night. Since 3 AM she is having lot of nausea vomiting and abdominal pain which prompted her to come to the ER. In the ER patient received fluids and IV phenobarbital and Ativan for alcohol withdrawal. Currently drowsy but was arousable. Currently patient states still has some abdominal discomfort. Denies any chest pain or shortness of breath. No cough. No headache. No runny nose or sore throat. Patient states earlier felt tingliness in the hands and face but that got resolved. Normal bowel and bladd er movements. Hemodynamics are okay. Nausea and vomiting Abdominal pain CT scan without any acute findings Lipase level not elevated Possible gastroenteritis Possible alcohol gastritis Possible cannabis hyperemesis syndrome Clears, IV fluids, IV Pepcid, IV antiemetics as needed, pain meds as needed Close monitor 03/22 Diet was advanced and pt is having lunch, nausea much improved, will cont. to closely monitor. Alcoholism History of alcoholism received phenobarbital and Ativan in the ER Will continue with Librium protocol and Ativan as needed IV thiamine and folic acid and multivitamins Close monitor High anion gap metabolic acidosis - resolved Initial lactic acid 4.8 and repeat is 1.5 Procalcitonin negat. Mostly from alcoholism and dehydration and starvation ketosis received fluids anion gap normal now Hypomagnesia and hypokalemia Replace and monitor Mild elevated LFTs Mostly from alcoholism Trending down Depression On Wellbutrin DVT prophylaxis Lovenox Disposition Telemetry Full code. Admission and Anticipated Discharge Date Admission Date: March 21, 2025 Subjective Pt seen in follow up for n/v, alcohol withdrawal Currently awake, eating lunch, nausea much improved. Discussed w/ RN - pt been doing well today No fever, chills, chest pain, shortness of breath Review of Systems Review of Systems: All systems reviewed & are unremarkable except as noted in Subjective Physical Exam Physical Exam: General- WD/WN young F in NAD, awake, alert, eating lunch Head- atraumatic Eyes- PERRL. Neck- supple Lungs- clear to auscultation no wheezing or crackles. Heart- regular rhythm; no murmur, no gallop. Abdomen- normal bowel sounds, soft, mild diffuse discomfort, no distension Extremities- no pretibial edema, no erythema seen. Neuro- awake, alert, answers appropriately, no facial palsy; no dysarthria; moves extremities Results & Data Results & Data Vital Signs (Past 12 Hours) Vital Signs Temp Pulse Resp BP Pulse Ox O2 Del Method 03/22/25 12:47 36.3 C L 98 H 18 101/67 98 Room Air 03/22/25 08:43 36.7 C 107 H 19 124/83 94 Room Air Laboratory Results 03/22/25 03/21/25 Range/Units 07:09 Unknown WBC 3.89 L (4.8-10.8) K/ul RBC 3.75 L (4.20-5.40) M/uL Hgb 12.9 (12.0-16.0) g/dl Hct 36.6 L (37.0-47.0) % MCV 97.6 (80.0-100.0) fL MCH 34.4 H (25.0-34.0) pg MCHC 35.2 (32.0-36.0) g/dL RDW Std Deviation 45.2 (36.4-46.3) fL RDW Coeff of Nayana 12.6 (11.5-14.5) % Plt Count 106 L (130-400) K/uL MPV 8.7 L (9.4-12.4) fL Sodium 138 (136-145) mmol/L Potassium 3.8 (3.5-5.1) mmol/L Chloride 109 H (98-107) mmol/L Carbon Dioxide 21 (21-32) mmol/L Anion Gap 8 (3-11) BUN 3 L (6-23) mg/dl Creatinine 0.58 L (0.6-1.2) mg/dl Est Cr Clr Drug Dosing 125.3 ml/min eGFR 123.23 BUN/Creatinine Ratio 5.2 L (10-20) Glucose 100 H (70-99(Fasting)) mg/dl Calcium 8.7 (8.6-10.3) mg/dl Phosphorus 2.8 (2.5-4.9) mg/dl Magnesium 1.7 (1.7-2.4) mg/dl Urine Color Yellow Urine Appearance Clear (Clear) Urine pH 8.5 H (4.5-7.5) Ur Specific [place] > 1.045 H (1.000-1.030) Urine Protein 1+ H (Negative) Urine Glucose (UA) Negative (Negative) Urine Ketones 2+ H (Negative) Urine Blood Negative (Negative) Urine Nitrite Negative (Negative) Urine Bilirubin Negative (Negative) Urine Urobilinogen Negative (Negative) Ur Leukocyte Esterase Negative (Negative) Urine WBC (Auto) 0-5 (0-5) /hpf Urine RBC (Auto) 0-2 (0-2) /hpf U Hyaline Cast (Auto) 0-2 (0-2) /lpf U Epithel Cells (Auto) 6-10 H (0-2) /hpf Urine Bacteria (Auto) 1+ H (None Seen) Urine Comment Medications Administered Current Inpatient Medications Albuterol (Albuterol Hfa 8 Gm Inhaler) 2 puffs INH Q4 PRN PRN Reason: cough or wheeze Stop: 04/20/25 02:12 Bupropion HCl (Bup[facility]ion Sr 100 Mg Tabcr) [facility] Stop: 04/20/25 08:59 Last Admin: 03/22/25 09:41 Dose: 200 mg Cetirizine HCl (Cetirizine Hcl 10 Mg Tablet) 10 mg PO DAILY PRN PRN Reason: Allergy Symptoms Stop: 04/20/25 02:12 Last Admin: 03/22/25 09:40 Dose: 10 mg Chlordiazepoxide HCl (Chlordiazepoxide Hcl 25 Mg Cap) 50 mg PO Q8H [facility]; Protocol Stop: 03/22/25 18:16 Last Admin: 03/22/25 09:34 Dose: 50 mg Chlordiazepoxide HCl (Chlordiazepoxide Hcl 25 Mg Cap) 25 mg PO Q8H [facility]; Protocol Stop: 03/23/25 18:16 Chlordiazepoxide HCl (Chlordiazepoxide Hcl 5 Mg Cap) 10 mg PO Q12H [facility]; Protocol Stop: 03/24/25 18:16 Cyanocobalamin (Cyanocobalamin (B-12) 500 Mcg Tablet) 1,000 [facility]cg [facility] [place] Stop: 04/21/25 08:59 Last Admin: 03/22/25 09:41 Dose: 1,000 mcg Enoxaparin Sodium (Enoxaparin Inj 40 Mg/0.4 Ml Syr) 40 mg SQ Q24H [facility] Stop: 04/20/25 08:59 Last Admin: 03/22/25 09:40 Dose: Not Given Ferrous Sulfate (Ferrous Sulfate 325 Mg Tab) 325 mg PO QAM [facility] Stop: 04/20/25 08:59 Last Admin: 03/22/25 09:40 Dose: 325 mg Folic Acid (Folic Acid 1 Mg Tab) 1 mg PO QAM [facility] Stop: 04/20/25 08:59 Last Admin: 03/22/25 09:40 Dose: 1 mg Gabapentin (Gabapentin 100 Mg Cap) 200 mg PO QID [facility] Stop: 04/20/25 08:59 Last Admin: 03/22/25 15:05 Dose: 200 mg Dextrose/Sodium Chloride (D5w And Nss) 1,000 mls @ 125 mls/hr IV .Q8H [facility] Stop: 03/24/25 02:12 Last Admin: 03/22/25 10:14 Dose: 125 mls/hr Thiamine HCl 100 mg/ Syringe 10 mls @ 2 mls/[facility] [place] Stop: 04/20/25 08:59 Last Admin: 03/22/25 09:38 Dose: 2 mls/min Lorazepam 1 mg/ Syringe 1 mls @ 2 mls/min IV UD PRN; Protocol PRN Reason: EtOH Withdrawal AWSS Score 6,7 Stop: 04/20/25 02:12 Last Admin: 03/21/25 16:15 Dose: 2 mls/min Lorazepam 2 mg/ Syringe 2 mls @ 2 mls/min IV UD PRN; Protocol PRN Reason: EtOH Withdrawal AWSS Score 8,9 Stop: 04/20/25 02:12 Last Admin: 03/21/25 13:59 Dose: 2 mls/min Lorazepam 3 mg/ Syringe 3 mls @ 2 mls/min IV ONCE PRN; Protocol PRN Reason: EtOH Withdrawal AWSS Score 10+ Famotidine (Pepcid 20mg Iv Push) 20 mg in 5 mls @ 2.5 mls/min IV Q12H [facility] Stop: 04/20/25 06:59 Last Admin: 03/22/25 09:41 Dose: 2.5 mls/min Morphine Sulfate (Morphine Sulfate 4 Mg/Ml 1 Ml Carp\Vial) 3 mg IV Q4H PRN PRN Reason: Severe Pain (Scale 7, 8, 9,10) Stop: 04/04/25 02:12 Last Admin: 03/22/25 15:07 Dose: 3 mg Multivitamins (Multivitamin Tab) 1 tab PO QAM [facility] Stop: 04/20/25 08:59 Last Admin: 03/22/25 09:40 Dose: 1 tab Ondansetron HCl (Ondansetron Inj 2 Mg/Ml 2 Ml Vial) 4 mg IV Q6H PRN PRN Reason: Nausea Stop: 04/20/25 02:12 Last Admin: 03/21/25 16:07 Dose: 4 mg Oxymetazoline HCl (Oxymetazoline 0.05% 30 Ml Btl) 1 sprays NA BID PRN PRN Reason: Congestion Stop: 04/20/25 17:54 Sodium Chloride (Sodium Chloride 0.65% Na Soln 45 Ml ([place])) 1 sprays NA QID [facility] Stop: 04/20/25 20:59 Last Admin: 03/22/25 15:05 Dose: 1 sprays
[2025-03-23 06:36] LABS: Hematocrit (blood only) 37.4 % (37.0-47.0); Hemoglobin 12.8 g/dl (12.0-16.0); Mean Corpuscular Hemoglobin 34.5 pg (25.0-34.0); Mean Corpuscular Volume 100.8 fL (80.0-100.0); Platelet Count 114 K/uL (130-400); RDW Standard Deviation 46.4 fL (36.4-46.3); Red Blood Count 3.71 M/uL (4.20-5.40); White Blood Count 3.85 K/ul (4.8-10.8)
[2025-03-23 06:53] LABS: Anion Gap 8.0 (3-11); Blood Urea Nitrogen 8.0 mg/dl (6-23); Calcium 9.5 mg/dl (8.6-10.3); Carbon Dioxide 26.0 mmol/L (21-32); Chloride 103.0 mmol/L (98-107); Creatinine Clr Calc Pharmacy 119.1 ml/min; Glucose 91.0 mg/dl (70-99(Fasting)); Magnesium 1.7 mg/dl (1.7-2.4); Potassium 4.2 mmol/L (3.5-5.1); Sodium 137.0 mmol/L (136-145)
[2025-03-23] MEDS: MAGNESIUM SULFATE / D5W 1 GM/100 ML BAG IV ONE (08:06)
--- NOTE | 2025-03-23 10:42 | Hospitalist Progress Note ---
Date of Service March 23, 2025 Assessment & Plan (1) Nausea & vomiting: Plan: 30-year-old female with past medical history significant for bipolar disorder, history of pancreatitis, history of alcohol abuse, cannabis abuse presents with nausea vomiting and abdominal pain. Patient significant other?says her last alcohol drink was 1 AM last night. Since 3 AM she is having lot of nausea vomiting and abdominal pain which prompted her to come to the ER. In the ER patient received fluids and IV phenobarbital and Ativan for alcohol withdrawal. Currently drowsy but was arousable. Currently patient states still has some abdominal discomfort. Denies any chest pain or shortness of breath. No cough. No headache. No runny nose or sore throat. Patient states earlier felt tingliness in the hands and face but that got resolved. Normal bowel and bladd er movements. Hemodynamics are okay. Nausea and vomiting Abdominal pain CT scan without any acute findings Lipase level not elevated Possible gastroenteritis Possible alcohol gastritis Possible cannabis hyperemesis syndrome Clears, IV fluids, IV Pepcid, IV antiemetics as needed, pain meds as needed Close monitor 03/22 Diet was advanced and pt is having lunch, nausea much improved, will cont. to closely monitor. 03/23 continues to have stomach discomfort, will add PPI Alcoholism History of alcoholism received phenobarbital and Ativan in the ER Will continue with Librium protocol and Ativan as needed IV thiamine and folic acid and multivitamins Close monitor High anion gap metabolic acidosis - resolved Initial lactic acid 4.8 and repeat is 1.5 Procalcitonin negat. Mostly from alcoholism and dehydration and starvation ketosis received fluids anion gap normal now Hypomagnesia and hypokalemia Replace and monitor Mild elevated LFTs Mostly from alcoholism Trending down Depression On Wellbutrin DVT prophylaxis Lovenox Disposition Telemetry Full code. Admission and Anticipated Discharge Date Admission Date: March 21, 2025 Subjective Pt seen in follow up for n/v, alcohol withdrawal Currently awake, nausea much improved but still having some abd. discomfort. Discussed w/ RN - pt been doing well today No fever, chills, chest pain, shortness of breath Review of Systems Review of Systems: All systems reviewed & are unremarkable except as noted in Subjective Physical Exam Physical Exam: General- WD/WN young F in NAD, awake, alert, eating lunch Head- atraumatic Eyes- PERRL. Neck- supple Lungs- clear to auscultation no wheezing or crackles. Heart- regular rhythm; no murmur, no gallop. Abdomen- normal bowel sounds, soft, mild diffuse discomfort, no distension Extremities- no pretibial edema, no erythema seen. Neuro- awake, alert, answers appropriately, no facial palsy; no dysarthria; moves extremities Results & Data Results & Data Vital Signs (Past 12 Hours) Vital Signs Temp Pulse Pulse Resp BP Pulse Ox O2 Del Method 03/23/25 08:26 36.4 C L 92 H 19 110/75 92 Room Air 03/23/25 07:24 90 03/23/25 02:34 36.5 C 97 H 17 112/73 99 Room Air Laboratory Results 03/23/25 Range/Units 05:29 WBC 3.85 L (4.8-10.8) K/ul RBC 3.71 L (4.20-5.40) M/uL Hgb 12.8 (12.0-16.0) g/dl Hct 37.4 (37.0-47.0) % MCV 100.8 H (80.0-100.0) fL MCH 34.5 H (25.0-34.0) pg MCHC 34.2 (32.0-36.0) g/dL RDW Std Deviation 46.4 H (36.4-46.3) fL RDW Coeff of Nayana 12.5 (11.5-14.5) % Plt Count 114 L (130-400) K/uL MPV 9.4 (9.4-12.4) fL Sodium 137 (136-145) mmol/L Potassium 4.2 (3.5-5.1) mmol/L Chloride 103 (98-107) mmol/L Carbon Dioxide 26 (21-32) mmol/L Anion Gap 8 (3-11) BUN 8 (6-23) mg/dl Creatinine 0.61 (0.6-1.2) mg/dl Est Cr Clr Drug Dosing 119.1 ml/min eGFR 121.74 BUN/Creatinine Ratio 13.1 (10-20) Glucose 91 (70-99(Fasting)) mg/dl Calcium 9.5 (8.6-10.3) mg/dl Phosphorus 4.4 D (2.5-4.9) mg/dl Magnesium 1.7 (1.7-2.4) mg/dl Medications Administered Current Inpatient Medications Albuterol (Albuterol Hfa 8 Gm Inhaler) 2 puffs INH Q4 PRN PRN Reason: cough or wheeze Stop: 04/20/25 02:12 Bupropion HCl (Bupropion Sr 100 Mg Tabcr) 200 mg PO QAM [facility] Stop: 04/20/25 08:59 Last Admin: 03/23/25 08:16 Dose: 200 mg Cetirizine HCl (Cetirizine Hcl 10 Mg Tablet) 10 mg PO DAILY PRN PRN Reason: Allergy Symptoms Stop: 04/20/25 02:12 Last Admin: 03/22/25 09:40 Dose: 10 mg Chlordiazepoxide HCl (Chlordiazepoxide Hcl 25 Mg Cap) 25 mg PO Q8H [facility]; Protocol Stop: 03/23/25 18:16 Last Admin: 03/23/25 02:13 Dose: 25 mg Chlordiazepoxide HCl (Chlordiazepoxide Hcl 5 Mg Cap) 10 mg PO Q12H [facility]; Protocol Stop: 03/24/25 18:16 Cyanocobalamin (Cyanocobalamin (B-12) 500 Mcg Tablet) 1,000 mcg PO QAM [facility] Stop: 04/21/25 08:59 Last Admin: 03/23/25 08:20 Dose: 1,000 mcg Enoxaparin Sodium (Enoxaparin Inj 40 Mg/0.4 Ml Syr) 40 mg SQ Q24H [facility] Stop: 04/20/25 08:59 Last Admin: 03/23/25 08:15 Dose: Not Given Ferrous Sulfate (Ferrous Sulfate 325 Mg Tab) 325 mg PO QAM [facility] Stop: 04/20/25 08:59 Last Admin: 03/23/25 08:16 Dose: 325 mg Folic Acid (Folic Acid 1 Mg Tab) 1 mg PO QAM [facility] Stop: 04/20/25 08:59 Last Admin: 03/23/25 08:16 Dose: 1 mg Gabapentin (Gabapentin 100 Mg Cap) 200 mg PO QID [facility] Stop: 04/20/25 08:59 Last Admin: 03/23/25 08:16 Dose: 200 mg Dextrose/Sodium Chloride (D5w And Nss) 1,000 mls @ 125 mls/hr IV .Q8H [facility] Stop: 03/24/25 02:12 Last Infusion: 03/22/25 21:42 Dose: Infused Thiamine HCl 100 mg/ Syringe 10 mls @ 2 mls/min IV QAM [facility] Stop: 04/20/25 08:59 Last Admin: 03/23/25 08:08 Dose: 2 mls/min Lorazepam 1 mg/ Syringe 1 mls @ 2 mls/min IV UD PRN; Protocol PRN Reason: EtOH Withdrawal AWSS Score 6,7 Stop: 04/20/25 02:12 Last Admin: 03/21/25 16:15 Dose: 2 mls/min Lorazepam 2 mg/ Syringe 2 mls @ 2 mls/min IV UD PRN; Protocol PRN Reason: EtOH Withdrawal AWSS Score 8,9 Stop: 04/20/25 02:12 Last Admin: 03/21/25 13:59 Dose: 2 mls/min Lorazepam 3 mg/ Syringe 3 mls @ 2 mls/min IV ONCE PRN; Protocol PRN Reason: EtOH Withdrawal AWSS Score 10+ Famotidine (Pepcid 20mg Iv Push) 20 mg in 5 mls @ 2.5 mls/min IV Q12H [facility] Stop: 04/20/25 06:59 Last Admin: 03/23/25 08:08 Dose: 2.5 mls/min Morphine Sulfate (Morphine Sulfate 4 Mg/Ml 1 Ml Carp\Vial) 3 mg IV Q4H PRN PRN Reason: Severe Pain (Scale 7, 8, 9,10) Stop: 04/04/25 02:12 Last Admin: 03/23/25 04:25 Dose: 3 mg Multivitamins (Multivitamin Tab) 1 tab PO QAM [facility] Stop: 04/20/25 08:59 Last Admin: 03/23/25 08:16 Dose: 1 tab Ondansetron HCl (Ondansetron Inj 2 Mg/Ml 2 Ml Vial) 4 mg IV Q6H PRN PRN Reason: Nausea Stop: 04/20/25 02:12 Last Admin: 03/21/25 16:07 Dose: 4 mg Oxymetazoline HCl (Oxymetazoline 0.05% 30 Ml Btl) 1 sprays NA BID PRN PRN Reason: Congestion Stop: 04/20/25 17:54 Sodium Chloride (Sodium Chloride 0.65% Na Soln 45 Ml ([place])) 1 sprays NA QID [facility] Stop: 04/20/25 20:59 Last Admin: 03/23/25 08:20 Dose: 1 sprays
[2025-03-23] MEDS ORDERED: ACETAMINOPHEN 325 MG TAB PO PRN (12:08)
[2025-03-23] MEDS: PANTOprazole 40 MG/10 ML SYR IV SCH (13:07)
[2025-03-23 22:17] VITALS: RESP 18
[2025-03-24 03:39] VITALS: BP 119/75; TEMP 97.9; O2SAT 100
[2025-03-24 07:02] LABS: Hematocrit (blood only) 38.3 % (37.0-47.0); Hemoglobin 12.7 g/dl (12.0-16.0); Mean Corpuscular Hemoglobin 33.8 pg (25.0-34.0); Mean Corpuscular Volume 101.9 fL (80.0-100.0); Platelet Count 116 K/uL (130-400); RDW Standard Deviation 47.0 fL (36.4-46.3); Red Blood Count 3.76 M/uL (4.20-5.40); White Blood Count 4.41 K/ul (4.8-10.8)
[2025-03-24 07:24] LABS: Anion Gap 7.0 (3-11); Blood Urea Nitrogen 10.0 mg/dl (6-23); Calcium 9.1 mg/dl (8.6-10.3); Carbon Dioxide 25.0 mmol/L (21-32); Chloride 108.0 mmol/L (98-107); Creatinine Clr Calc Pharmacy 142.5 ml/min; Glucose 155.0 mg/dl (70-99(Fasting)); Magnesium 1.8 mg/dl (1.7-2.4); Potassium 3.9 mmol/L (3.5-5.1); Sodium 140.0 mmol/L (136-145)
--- NOTE | 2025-03-24 09:36 | Discharge Summary ---
Date of Service March 24, 2025 Admission HPI Per Admitting Provider 30-year-old female with past medical history significant for bipolar disorder, history of pancreatitis, history of alcohol abuse, cannabis abuse presents with nausea vomiting and abdominal pain. Patient significant other?says her last alcohol drink was 1 AM last night. Since 3 AM she is having lot of nausea vomiting and abdominal pain which prompted her to come to the ER. In the ER patient received fluids and IV phenobarbital and Ativan for alcohol withdrawal. Currently drowsy but was arousable. Currently patient states still has some abdominal discomfort. Denies any chest pain or shortness of breath. No cough. No headache. No runny nose or sore throat. Patient states earlier felt tingliness in the hands and face but that got resolved. Normal bowel and bladder movements. Hemodynamics are okay. Past medical history. As mentioned above. Past surgical history. induced by D&C. Social history. Quit smoking 2019. Drinking alcohol 6 shots of whiskey daily. Smokes marijuana daily. Family history. Father history of alcoholism. Mother history of alcoholism. Maternal uncle history of alcoholism. Bipolar disorder. Admission Exam Per Admitting Provider General-Drowsy Head- atraumatic Eyes- PERRL. ENT- oropharynx clear Neck- supple, no JVD. Lungs- clear to auscultation no wheezing or crackles. Heart- regular rhythm; no murmur, no gallop. Abdomen- normal bowel sounds, soft, mild diffuse discomfort, no distension Extremities- no pretibial edema, no erythema seen. Neuro- Drowsy PERRL, no facial palsy; no dysarthria; moves extremities Principal Diagnosis Nausea/vomiting, alcoholic gastritis High anion gap metabolic acidosis, electrolyte abnormalities Alcohol withdrawal Discharge Exam General- WD/WN young F in NAD, awake, alert, eating lunch Head- atraumatic Eyes- PERRL. Neck- supple Lungs- clear to auscultation no wheezing or crackles. Heart- regular rhythm; no murmur, no gallop. Abdomen- normal bowel sounds, soft, mild diffuse discomfort, no distension Extremities- no pretibial edema, no erythema seen. Neuro- awake, alert, answers appropriately, no facial palsy; no dysarthria; moves extremities Discharge Data Allergies Allergy/AdvReac Type Severity Reaction Status Date / Time lamotrigine [From Lamictal] Allergy Mild Rash Verified 03/20/25 23:55 amairani Allergy Mild GUMS SWELL Verified 03/20/25 23:55 mushroom Allergy Mild GUMS SWELL Verified 03/20/25 23:55 ketorolac [From Toradol] AdvReac Mild Irritable Verified 03/20/25 23:55 Consultations 03/20/25 22:39 ED Decision to Admit Stat Ordered Studies 03/20/25 19:06 CT abd pelvis IV con only Stat FINDINGS: Lung bases: Unremarkable. No mass. No consolidation. ABDOMEN: Liver: Hepatomegaly with evidence of hepatic steatosis, similar. Gallbladder and bile ducts: Unremarkable. No calcified stones. No ductal dilation. Pancreas: Unremarkable. No mass. No ductal dilation. Spleen: Unremarkable. No splenomegaly. Adrenals: Unremarkable. No mass. Kidneys and ureters: Unremarkable. No solid mass. No hydronephrosis. Stomach and bowel: The stomach is only mildly distended with fluid and gas. No gastric mucosal thickening. No evidence for focal high-grade bowel obstruction. No definite asymmetric bowel mucosal abnormality. Moderate stool burden. No diverticulitis. PELVIS: Appendix: A normal-caliber appendix, measuring only 4.7 mm on coronal reformatted imaging, is identified extending medially from the cecum in the right lower quadrant. No evidence for periappendiceal inflammatory changes to suggest acute appendicitis. Bladder: Unremarkable. No mass. Reproductive: Questionable subcentimeter follicular changes involving the right adnexa/ovary. The anteverted uterus and left ovary are unremarkable. ABDOMEN and PELVIS: Intraperitoneal space: Trace free fluid in the dependent left pelvic cul-de-sac. No loculation. Bones/joints: No acute fracture. No dislocation. Soft tissues: Subtle mesenteric fat stranding noted in the central pelvis, similar to the previous examination consistent with chronic changes. Vasculature: Unremarkable. No abdominal aortic aneurysm. Lymph nodes: Unremarkable. No enlarged lymph nodes. IMPRESSION: 1. A normal-caliber appendix, measuring only 4.7 mm on coronal reformatted imaging, is identified extending medially from the cecum in the right lower quadrant. No evidence for periappendiceal inflammatory changes to suggest acute appendicitis. 2. Hepatomegaly with evidence of hepatic steatosis, similar. 3. No evidence for focal high-grade bowel obstruction. No definite asymmetric bowel mucosal abnormality. Moderate stool burden. No diverticulitis. No pneumoperitoneum. 4. Questionable subcentimeter follicular changes involving the right adnexa/ovary. Trace free fluid in the dependent left pelvic cul-de-sac. This is presumed incidental/physiologic. Hospital Course (1) Nausea & vomitin-year-old female with past medical history significant for bipolar disorder, history of pancreatitis, history of alcohol abuse, cannabis abuse presents with nausea vomiting and abdominal pain. Patient significant other?says her last alcohol drink was 1 AM last night. Since 3 AM she is having lot of nausea vomiting and abdominal pain which prompted her to come to the ER. In the ER patient received fluids and IV phenobarbital and Ativan for alcohol withdrawal. Currently drowsy but was arousable. Currently patient states still has some abdominal discomfort. Denies any chest pain or shortness of breath. No cough. No headache. No runny nose or sore throat. Patient states earlier felt tingliness in the hands and face but that got resolved. Normal bowel and bladder movements. Hemodynamics are okay. Nausea and vomiting Abdominal pain CT scan without any acute findings Lipase level not elevated Possible gastroenteritis Possible alcohol gastritis Possible cannabis hyperemesis syndrome Clears, IV fluids, IV Pepcid, IV antiemetics as needed, pain meds as needed Close monitor 03/22 Diet was advanced and pt is having lunch, nausea much improved, will cont. to closely monitor. 03/23 continues to have stomach discomfort, will add PPI 03/24 tolerates diet, but still having some epigastric discomfort, pt would like to be discharged. Recommend to continue w/ PPI. Also recommend to avoid caffeine, acidic or spicy foods. Recommend to avoid alcohol. Likely alcoholic gastritis. Alcoholism History of alcoholism received phenobarbital and Ativan in the ER continued with Librium protocol and Ativan as needed IV thiamine and folic acid and multivitamins Close monitor High anion gap metabolic acidosis - resolved Initial lactic acid 4.8 and repeat is 1.5 Procalcitonin negat. Mostly from alcoholism and dehydration and starvation ketosis received fluids anion gap normal now Hypomagnesia and hypokalemia Replace and monitor Mild elevated LFTs Mostly from alcoholism Trending down Depression On Wellbutrin Total Time Total Time Spent Total Time Spent (In Minutes): 40 Discharge Plan Discharge Items Patient Disposition: Home - Self-Care Reason For Visit: N/V,ABD PAIN,ELECTROLYTE ABNORMALITIES.,ALOCHOLISM Discharge Diagnosis: Nausea/vomiting, alcoholic gastritis High anion gap metabolic acidosis, electrolyte abnormalities Alcohol withdrawal Condition on Discharge: Fair Activity: Per Instructions section Non-emergency contact: Primary Care Provider Call non-emergency contact if: you have any medication questions and your symptoms worsen Follow-up/Referrals: William Mullins MD [Primary Care Provider] - Diet: Regular Diet Comment: Avoid alcohol, caffeine, acidic foods or spicy foods Addtl Attending Provider Instructions: Follow up with primary care physician within 1 week. Take pantoprazole twice a day as prescribed. Strongly recommend alcohol use cessation and also marihuana use cessation. Recommend to avoid caffeine, acidic or spicy foods. Pending Studies at Discharge: No Stand-Alone Forms: My [facility] Stupeflix, Smoking Cessation Medications and DC Order Prescriptions: New folic acid 1 mg Tablet 1 mg PO QAM Qty: 30 0RF cyanocobalamin (vitamin B-12) 500 mcg Tablet 1,000 mcg PO QAM Qty: 30 0RF pantoprazole 40 mg tablet,delayed release (DR/EC) 40 mg PO BID Qty: 60 0RF Continued cetirizine 10 mg tablet 10 mg PO DAILY PRN (Reason: Allergy Symptoms) gabapentin 100 mg capsule 200 mg PO QID albuterol sulfate 90 mcg/actuation HFA aerosol inhaler 2 puff INHALATION Q4 PRN (Reason: cough or wheeze) ferrous sulfate 325 mg (65 mg iron) Tablet 325 mg PO QAM bupropion HCl 200 mg tablet sustained-release 12 hr 200 mg PO QAM Discharge Orders: Discharge Order (Routine); Ordered 03/24/25 Ordered By: Gadiel Patel Admission Data Admit Date/Time: 03/21/25 00:07 Attending Provider: Gadiel Patel Admit Provider: Jeffery Kuo Primary Care Provider: William Mullins Other Providers: Jeffery Kuo
[2025-03-24 09:51] VITALS: PULSE 85
== END 2025-03-24 10:46 | disposition home or self-care (01) | DRG 897 ==
LOC: ED 18:49 → 2S 03-21 00:07